=== PATIENT | female | born 1980 | race Caucasian/White ===

== ENCOUNTER 2017-05-11 19:14 | Emergency (ER) | payer MEDICAID, SELFPAY ==
[2017-05-11 19:16] VITALS: BP 134/96; PULSE 86; RESP 13; TEMP 37.1; O2SAT 99; BMI 31.4
[2017-05-11] MEDS: Acetaminophen 500 MG Tablet 1000 MG PO (19:44)
[2017-05-11] MEDS: Ondansetron ODT 4 MG Tablet PO (19:45)
--- NOTE | 2017-05-11 19:47 | EKG12_ITS ---
Test Reason : SEIZURE Blood Pressure : / mmHG Vent. Rate : 067 BPM Atrial Rate : 067 BPM P-R Int : 230 ms QRS Dur : 096 ms QT Int : 430 ms P-R-T Axes : 036 048 035 degrees QTc Int : 454 ms Sinus rhythm with 1st degree A-V block Otherwise normal ECG Confirmed by PHYLLIS COFFMAN, GURDEEP ([id number]), video tape editor CELESTINE CORDERO ([id number]) on 05/17/2017 2:00:29 PM Referred By: BRIDGETT Confirmed By:GURDEEP FERGUSON MD
--- NOTE | 2017-05-11 19:55 | RAD_ITS ---
STUDY: X-RAY - RIGHT SHOULDER REASON FOR EXAM: Female, 37 years old. Right shoulder pain after falling. TECHNIQUE: 4 view(s) of the shoulder. COMPARISON: None. FINDINGS: Normal glenohumeral articulation. Normal acromioclavicular joint. Normal acromion. Normal humeral head and visualized proximal humerus. The soft tissue structures are unremarkable. There is no demonstrated fracture. Normal visualized pulmonary apex. RAD/Shoulder min 2 Views IMPRESSION: Normal x-ray examination of the shoulder. Electronically Signed: Elin Mckoy MD at 20:32 EST , Service support ,
--- NOTE | 2017-05-11 20:40 | ED.VISSUMM ---
- ER Visit Summary Date of Service: 05/11/17 Chief Complaint: Possible seizure History of Present Illness: The patient is a 37 F who states that recently she has been began having seizures. She states tonight she hurts people talking on the hallway and she thinks she had a seizure because she collapsed against the door and tingling stand injuring her right shoulder. Patient states that she came to talking to her. She feels nauseated has a headache. She notes right posterior shoulder pain. She denies any loss of bowel or bladder control. There is been no biting of the tongue. She sees Dr. Espinosa has appointment in the next couple days. I would encourage providers to read her prior notes. Physical Examination: Afebrile vital signs are stable Gen: Well-nourished well-developed Head: Normocephalic atraumatic Eyes: Perrl EOMI ENT: TMs clear no rhinorrhea moist mucous membranes Neck: Supple no lymphadenopathy no JVD nontender CVS: Regular rate rhythm no murmurs normal S1-S2 Respiratory: No distress clear to auscultation bilaterally chest nontender Abdomen: Soft nontender nondistended normal bowel sounds no masses Back: Nontender Extremity: Tender to palpation in the posterior right shoulder without deformity or obvious dislocation. Neurovascular intact distally Skin: Normal color no rash Neuro: alert orientated ?3 CN II-XII intact normal strength sensation reflexes gait cerebellar Psych: Normal affect normal mood Test Results: Shoulder films were negative for acute. EKG shows a sinus rhythm at a rate of 67 with a QTC of 454. Emergency Department Course and Treatment: She received a dose of Tylenol and Zofran. She will be discharged home with supportive care. She is to follow-up with her doctor as scheduled. Impression: 1. Reported syncope 2. Right shoulder pain This note was generated with [employer] dictation software. It may contain incorrect words, spelling, and punctuation that were not noted in review of the chart prior to signing ED Disposition - Plan for ED Patient: Disposition: Home or Assisted Living Chief Complaint: Seizure Instructions: ED Contusion Shoulder Referrals: Giancarlo Espinosa MD [Primary Care Provider] - Keep Fe appointment
[2017-05-11 20:46] VITALS: BP 130/89; PULSE 75; RESP 16; O2SAT 96
--- NOTE | 2017-05-11 20:47 | ED.RN ---
REVIEWED D/C INSTRUCTIONS, FOLLOW UP CARE, AND S/S THAT WOULD WARRANT A RETURN TO THE ED WITH PT. PT VERBALIZED AN UNDERSTANDING AND DENIES FURTHER QUESTIONS FOR THIS RN. PT SKIN P/W/D, RESP EVEN AND UNLABORED, PT A&O X 3, NO DISTRESS NOTED. PT AMBULATED OUT OF ED, GAIT STEADY.
== END 2017-05-11 20:49 | disposition home or self-care (01) ==
PROVIDERS: Emergency Provider Emergency Medicine; Family Provider Family Medicine; PCP Family Medicine
DX: M25.511 Pain in right shoulder (principal); R55 Syncope and collapse; K21.9 Gastro-esophageal reflux disease without esophagitis; Z79.899 Other long term (current) drug therapy
CPT/HCPCS: 73030; 93005; 99285

== ENCOUNTER 2017-07-07 17:40 | Emergency (ER) | payer MEDICAID, SELFPAY ==
[2017-07-07 17:41] VITALS: BP 130/100; PULSE 117; RESP 18; TEMP 36.5; O2SAT 98; BMI 33.0
[2017-07-07 18:15] VITALS: BP 108/84; PULSE 121; RESP 21; O2SAT 98
--- NOTE | 2017-07-07 18:28 | CT_ITS ---
STUDY: CT BRAIN WITHOUT CONTRAST REASON FOR EXAM: Female, 37 years old. Headache and seizure RADIATION DOSAGE (If Supplied By Facility): CTDIvol = ( 44.99 ) mGy, DLP = ( 745.49 ) mGycm TECHNIQUE: Transaxial CT imaging of the brain was performed without administration of intravenous contrast material. Individualized dose optimization techniques were used for this CT. COMPARISON: July 16, 2016 FINDINGS: Normal soft tissue structures. Normal calvarium. Normal size ventricles and extra-axial spaces for the patient's age. Normal white matter tracts of the cerebral hemispheres. Normal basal ganglia and thalami. Normal brainstem. Normal cerebellum. Partial empty sella deformity of uncertain clinical significance. There is no intracranial hemorrhage. There are no findings of an acute ischemic infarction. Normal visualized paranasal sinuses. No significant change since prior exam CT/Brain/Head without Contrast IMPRESSION: Partial empty sella deformity of uncertain clinical significance No evidence for obstructive hydrocephalus mass or acute bleed. Electronically Signed: Glenn Mcgarry MD at 19:16 EDT , Service support ,
[2017-07-07 18:53] LABS: Absolute Lymphocyte Count 2.42 X10^3/ul (0.83-4.51); Absolute Neutrophil Count 7.6 X10^3/uL (2.0-7.7); Basophil# 0.02 X10^3/uL; Basophil% 0.2 % (0-1); Eosinophil# 0.03 X10^3/uL; Eosinophils% 0.3 % (0-5); Hematocrit 37.8 % (37-47); Hemoglobin 12.1 g/dl (12.0-15.0); Lymphocyte # 2.42 X10^3/ul (4.0); Lymphocyte % 22.1 % (19-41); Mean Corpuscular Hgb 27.6 pg (27.0-32.0); Mean Corpuscular Volume 86.1 fL (81-99); Mean Platelet Vol. 9.2 fl (6.2-12.0); Monocyte# 0.88 X10^3/uL; Neutrophil # 7.58 X10^3/uL (2.7-7.7); Platelet Count 497 K/mm3 (150-450); RBC Distribution Width CV 19.3 % (11.6-14.6); RBC Distribution Width SD 59.5 fl (35.1-43.9); Red Blood Count 4.39 M/mm3 (4.2-5.4)
[2017-07-07 18:56] LABS: Anion Gap 9 (5-15); BUN 13 mg/dL (7-18); BUN/Creat Ratio 16.5 RATIO (10-20); Calcium,Total 9.4 mg/dL (8.5-10.1); Chloride 104 mmol/L (98-107); Creatinine, Serum 0.79 mg/dL (0.55-1.02); EST Glomerular Filtration Rate 87 mL/min (>60); Est Glom Filt Rate - Afr Amer 106 mL/min (>60); Estimated Creatinine Clearance 77.11 ml/min; Glucose 130 mg/dL (74-106); Potassium 3.5 mmol/L (3.5-5.1); Sodium Level 135 mmol/L (136-145)
[2017-07-07 18:58] LABS: POSITIVE COUNT NO; POSITIVE DIFFERENTIAL NO; POSITIVE MORPHOLOGY NO
[2017-07-07] MEDS: Ondansetron 4 MG/2 ML Vial IV (19:35)
[2017-07-07] MEDS: Ketorolac 30 MG/ML Syringe IV (19:41)
[2017-07-07 19:42] VITALS: BP 125/98; PULSE 95; RESP 15; O2SAT 98
[2017-07-07] MEDS: DiphenhydrAMINE 50 MG/ML Syringe 25 MG IV (20:35)
--- NOTE | 2017-07-07 20:41 | ED.DCSUM_ITS ---
- ER Visit Summary Date of Service: 07/07/17 Chief Complaint: Reportedly recurrent seizures and headache. History of Present Illness: The patient is a 37 F history of seizure disorder and also MS. It is becoming more frequently. She states she was diagnosed with seizure 3 months ago. Primarily absence seizure's. She denies being on any blood thinners. She denies any fever. She denies any head trauma. Physical Examination: Appearing young female. Vital signs are stable afebrile. Pulse ox 90% on room air no signs of hypoxia. She is in no distress. She is not seizing. H EENT exam unremarkable atraumatic. Pupils round reactive light. No facial droop. No injury to her tongue. Neck nontender no meningismus. No lymphadenopathy. Lungs clear to auscultation bilaterally. Heart regular rate and rhythm no murmur. Chest nontender. Abdomen soft nontender. Moving all 4 extremities. Neurovascular intact. Neurologically she is awake and alert with no focal motor or sensory deficits. Back exam normal.. Skin exam normal. Test Results: CBC normal. Electrolytes unremarkable. Gap of 9. Normal creatinine. CT brain no acute abnormality read by the radiologist reviewed by me. Emergency Department Course and Treatment: Multiple repeat exams patient is doing well. She has had no seizure while in the ER. Treatment Plan: Discharged to home. Disposition: Discharge Impression: Recurrent seizures This note was generated with [employer] dictation software. It may contain incorrect words, spelling, and punctuation that were not noted in review of the chart prior to signing ED Disposition - Plan for ED Patient: Chief Complaint: Seizure Referrals: Giancarlo Espinosa MD [Primary Care Provider] -
--- NOTE | 2017-07-07 20:41 | ED.DEP ---
ED Disposition - Plan for ED Patient: Disposition: Home or Assisted Living Chief Complaint: Seizure Instructions: ED Seizure Recurrent Referrals: Giancarlo Espinosa MD [Primary Care Provider] - As soon as possible
[2017-07-07 20:53] VITALS: BP 131/89; PULSE 107; RESP 16; O2SAT 98
== END 2017-07-07 20:54 | disposition home or self-care (01) ==
PROVIDERS: Emergency Provider Emergency Medicine; Family Provider Family Medicine; PCP Family Medicine
DX: G40.A09 Absence epileptic syndrome, not intractable, without status epilepticus (principal); R11.2 Nausea with vomiting, unspecified; B34.9 Viral infection, unspecified; G35 Multiple sclerosis; Z79.899 Other long term (current) drug therapy
CPT/HCPCS: 70450; 80048; 85025; 96374; 96375; 99285; A4216; J2405

== ENCOUNTER 2017-07-22 11:54 | Emergency (ER) | payer MEDICAID, SELFPAY ==
[2017-07-22 11:55] VITALS: BP 107/73; PULSE 114; RESP 18; TEMP 36.9; O2SAT 95; BMI 33.1
[2017-07-22] MEDS: Ondansetron 4 MG/2 ML Vial IV (12:31)
--- NOTE | 2017-07-22 12:46 | ED.DCSUM_ITS ---
- ER Visit Summary Date of Service: 07/22/17 Chief Complaint: Reported seizure History of Present Illness: The patient is a 37 F who states that she has a history of MS and seizures (please see prior ED visits) she states she takes gabapentin and does not see neurology. She reports that she was at the [facility] today and does not remember anything but bystanders told her she was flopping like a fish. She denies any trauma. She states she feels nauseated and tired. Physical Examination: afeberile vital signs are stable Gen: Well-nourished well-developed Head: Normocephalic atraumatic Eyes: Perrl EOMI ENT: TMs clear no rhinorrhea moist mucous membranes Neck: Supple no lymphadenopathy no JVD nontender CVS: Regular rate rhythm no murmurs normal S1-S2 Respiratory: No distress clear to auscultation bilaterally chest nontender Abdomen: Soft nontender nondistended normal bowel sounds no masses Back: Nontender Extremity: Nontender no edema Skin: Normal color no rash Neuro: alert orientated ?3 CN II-XII intact normal strength sensation reflexes gait cerebellar Psych: Normal affect normal mood Emergency Department Course and Treatment: Patient was given Zofran. She was observed. Patient be discharged home to follow-up with her doctors. Impression: 1. Reported seizure This note was generated with [employer] dictation software. It may contain incorrect words, spelling, and punctuation that were not noted in review of the chart prior to signing ED Disposition - Plan for ED Patient: Disposition: Home or Assisted Living Chief Complaint: Seizure Instructions: ED Seizure Recurrent Referrals: Giancarlo Espinosa MD [Primary Care Provider] - (call to arrange follow up)
[2017-07-22 13:29] VITALS: BP 112/80; PULSE 100; RESP 18; O2SAT 96
== END 2017-07-22 13:39 | disposition home or self-care (01) ==
PROVIDERS: Emergency Provider Emergency Medicine; Family Provider Family Medicine; PCP Family Medicine
DX: R56.9 Unspecified convulsions (principal); G35 Multiple sclerosis; K21.9 Gastro-esophageal reflux disease without esophagitis; Z79.899 Other long term (current) drug therapy
CPT/HCPCS: 96374; 99285; J7030; A4216; J2405

== ENCOUNTER 2017-11-16 22:33 | Inpatient (IN) | payer MEDICAID, SELFPAY ==
[2017-11-16 22:34] VITALS: BP 110/81; PULSE 106; RESP 24; TEMP 37.3; O2SAT 98; BMI 31.6
--- NOTE | 2017-11-16 22:58 | EKG12_ITS ---
Test Reason : OVERDOSE Blood Pressure : / mmHG Vent. Rate : 107 BPM Atrial Rate : 107 BPM P-R Int : 184 ms QRS Dur : 084 ms QT Int : 342 ms P-R-T Axes : 048 046 037 degrees QTc Int : 456 ms Sinus tachycardia Otherwise normal ECG Confirmed by TATIANA LAUREANO ([id number]), non linear editor CELESTINE CORDERO ([id number]) on 11/22/2017 1:38:18 PM Referred By: JACK Confirmed By:TATIANA LAUREANO
[2017-11-16 23:24] LABS: Absolute Lymphocyte Count 2.36 X10^3/ul (0.83-4.51); Absolute Neutrophil Count 6.5 X10^3/uL (2.0-7.7); Basophil# 0.02 X10^3/uL; Basophil% 0.2 % (0-1); Eosinophil# 0.11 X10^3/uL; Eosinophils% 1.1 % (0-5); Hematocrit 35.7 % (37-47); Hemoglobin 12.2 g/dl (12.0-15.0); Lymphocyte # 2.36 X10^3/ul (4.0); Mean Corp Hgb Conc 34.2 g/gl (32-36); Mean Corpuscular Volume 93.7 fL (81-99); Mean Platelet Vol. 9.3 fl (6.2-12.0); Monocyte# 1.26 X10^3/uL; Monocyte% 12.3 % (0-10); Neutrophil # 6.52 X10^3/uL (2.7-7.7); Neutrophil % 63.3 % (47-70); POSITIVE COUNT NO; POSITIVE DIFFERENTIAL NO; POSITIVE MORPHOLOGY NO; Platelet Count 387 K/mm3 (150-450); RBC Distribution Width CV 13.6 % (11.6-14.6); RBC Distribution Width SD 46.7 fl (35.1-43.9); Red Blood Count 3.81 M/mm3 (4.2-5.4); White Blood Count 10.3 K/mm3 (4.4-11.0)
[2017-11-16 23:25] LABS: Color, Urine Yellow (Yellow); Glucose, Dipstick Normal (Normal); Leukocyte Esterase-Dipstick 25 /ul (Negative); Nitrite-Dipstick Negative (Negative); Occult Blood-Urine 250 /ul (Negative); Protein-Dipstick 30 mg/dl (Negative); Specific Gravity, Urine 1.025 (1.002-1.030); Urine Bilirubin Dipstick Negative (Negative); Urine Clarity Clear (Clear); Urine Urobilinogen Normal (Normal)
--- NOTE | 2017-11-16 23:26 | ED.RN ---
lab called with critical lab results. urine ketones 150. Dr. Cornejo made aware. no new orders given at this time
[2017-11-16 23:27] LABS: Ketone-Dipstick 150 mg/dl (Negative)
[2017-11-16] MEDS: 0.9% Normal Saline 1,000 ML 1000 ML IV (23:31)
[2017-11-16] MEDS: Ondansetron 4 MG/2 ML Vial IV (23:32)
[2017-11-16 23:45] LABS: Anion Gap 16 (5-15); BUN 23 mg/dL (7-18); BUN/Creat Ratio 32.3 RATIO (10-20); Calcium,Total 9.6 mg/dL (8.5-10.1); Chloride 102 mmol/L (98-107); Creatinine, Serum 0.71 mg/dL (0.55-1.02); EST Glomerular Filtration Rate 98 mL/min (>60); Est Glom Filt Rate - Afr Amer 118 mL/min (>60); Glucose 93 mg/dL (74-106); Potassium 3.7 mmol/L (3.5-5.1); Sodium Level 136 mmol/L (136-145)
[2017-11-16 23:46] LABS: Alcohol, Blood (Medical)-Serum < 3.0 mg/dL
[2017-11-16 23:48] LABS: Bacteria RARE /hpf (None Seen); Mucous, Urine 1+ /hpf (<or=2+); Red Blood Cells-Urine 10-25 SEEN /hpf (0-5); Squamous Epithelial Cells - UA 0-5 SEEN /hpf (5-10); White Blood Cells 5-10 SEEN /hpf (0-5)
[2017-11-16 23:58] VITALS: BP 97/63; PULSE 103; RESP 20; O2SAT 98
[2017-11-17] VITALS (12 sets, daily range): BP systolic 109–116; BP diastolic 57–81; PULSE 60–103; RESP 18–20; TEMP 36.1–36.9; O2SAT 94–99; BMI 31.8; BMI 31.9
[2017-11-17] MEDS: 0.9% Normal Saline 1,000 ML 999 ML IV (00:03)
[2017-11-17 00:07] LABS: Amphetamine Urine VISTA POSITIVE (<1000 ng/mL); Barbiturate Urine VISTA NEGATIVE (< 200 ng/mL); Benzodiazepine Urine VISTA NEGATIVE (< 200 ng/mL); Cocaine Urine VISTA NEGATIVE (< 300 ng/mL); Ecstacy Urine VISTA POSITIVE (< 500 ng/mL); Methadone Urine VISTA NEGATIVE (< 300 ng/mL); PCP Urine VISTA NEGATIVE (< 25 ng/mL); THC Urine VISTA NEGATIVE (< 50 ng/mL); Vista UDS pH Range 6
--- NOTE | 2017-11-17 00:25 | PCM.HP.STD ---
Problem List (1) Acute encephalopathy Status: Acute (2) Methamphetamine abuse Status: Acute (3) High anion gap metabolic acidosis Status: Acute History of Present Illness Date of Admission: 11/17/17 Chief Complaint: Altered mental status x 1 day. The patient is a 37 year old F with a significant history of multiple sclerosis, epilepsy, and polysubstance dependence who presented with shakiness,, diaphoresis and incoherent speech that started a few hours before his admission. Patient used methamphetamine about a day and a half before admission. Patient and daughter thinks that patient is is withdrawing from methamphetamine. Patient lives at half-way. While the patient and daughter was coming to the emergency department patient collapsed. In the past patient used cocaine and other illicit drugs. Past Medical History Past Medical History (Chronic Problems): Chronic Problems Transverse myelitis (Chronic) GERD (gastroesophageal reflux disease) (Chronic) BMI 33.0-33.9,adult (Chronic) Allergies naproxen [From Naprosyn] Allergy (Verified 11/16/17 22:38) Hives Home Medications: Ambulatory Orders Medication Instructions Recorded Amitriptyline HCl 150 mg PO QHS 07/16/16 Meloxicam [Mobic] 15 mg PO BID 07/16/16 Gabapentin [Neurontin] 1,000 mg PO 4X/DAY 07/17/16 Omeprazole [Omeprazole] 20 mg PO DAILY 01/11/17 Ferrous Sulfate [Iron] 325 mg PO BID 07/07/17 Levetiracetam [Keppra] 500 mg PO BID 11/17/17 Surgical History: appendectomy, - - Fallopian tubes tied Psychiatric History: No pertinent psych hx [employer] History: No pertinent [employer] history Lives: - - Lives at half-way Smoking Status: Never smoker Alcohol: None Drugs: Cocaine - In the past, - - Narcotics - *Family History Maternal History Items: No pertinent history Paternal History Items: No pertinent history Review of Systems Constitutional: Reports: Malaise, Weakness Eyes: Denies: Blurred vision, Pain HEENT: Denies: Head Aches, Sinus Congestion, Sinus Drainage Cardiovascular: Denies: Chest Pain, Palpitations Respiratory: Denies: Cough, Shortness of breath at rest, Sputum production Gastrointestinal: Denies: Abdominal Pain, Nausea, Vomiting Genitourinary: Denies: Dysuria Musculoskeletal: Denies: Joint Pain, Joint Tenderness Skin: Denies: Rash, Wounds Neurological: Reports: - - Collapsed on her way to the emergency department. Psychiatric: Denies: Homicidal Ideations, Suicidal Ideations Hematologic/ Lymphatic: Denies: Easy Bruising, Easy Bleeding VTE Information - Inpt Only VTE Present on Admission: No VTE Mechan Device Prophylaxis: None VTE Pharm Prophylaxis ordered?: Yes Patient Problems: Active and Suspected Problems Acute encephalopathy (Acute) Methamphetamine abuse (Acute) High anion gap metabolic acidosis (Acute) - Physical Exam General: Alert, Oriented x3, - - Incoherent speech; and some confusion HEENT: Atraumatic, PERRLA, EOMI, Normocephalic Neck: Supple, No JVD, Negative Carotid Bruits Lungs: Clear to auscultation, Normal air movement Cardiovascular: Tachycardic Abdomen: Bowel Sounds Present, Soft, Non Tender Extremities: No edema, Capillary Refill Less than 3 Seconds Skin: No rashes, No breakdown Musculoskeletal: No Tenderness to Palpation of Joints or Extremities Neurological: Cranial nerves II-XII grossly intact Psych/Mental Status: Restless Vital Signs Temp Pulse Resp BP Pulse Ox 99.2 F H 103 H 20 H 97/63 98 11/16/17 22:34 11/16/17 23:58 11/16/17 23:58 11/16/17 23:58 11/16/17 23:58 Oxygen Delivery Method Room Air Weight: 78.3 kg Body Mass Index (BMI) 31.6 Finger Stick Blood Glucose 109 Laboratory Tests Past 24 Hrs 11/16/17 11/16/17 11/16/17 23:10 23:10 23:10 WBC 10.3 RBC 3.81 L Hgb 12.2 Hct 35.7 L MCV 93.7 MCH 32.0 MCHC 34.2 RDW 13.6 RDW Differential 46.7 H Plt Count 387 MPV 9.3 Immature Gran % (Auto) 0.100 Neut % (Auto) 63.3 Lymph % (Auto) 23.0 [place] % (Auto) 12.3 H Eos % (Auto) 1.1 Baso % (Auto) 0.2 Absolute Neuts (auto) 6.5 Absolute Lymphs (auto) 2.36 Total Counted Not Reportable Sodium 136 Potassium 3.7 Chloride 102 Carbon Dioxide 18.0 L Anion Gap 16 H BUN 23 H Creatinine 0.71 Estim Creat Clear Calc 85.80 Est GFR (MDRD) Af Amer 118 Est GFR (MDRD) Non-Af 98 BUN/Creatinine Ratio 32.3 H Glucose 93 Calcium 9.6 Urine Color Urine Clarity Urine pH Ur Specific [place] Urine Protein Urine Glucose (UA) Urine Ketones Urine Occult Blood Urine Nitrite Urine Bilirubin Urine Urobilinogen Ur Leukocyte Esterase Urine RBC Urine WBC Ur Squamous Epith Cells Urine Bacteria Urine Mucus Urine Opiates Screen Urine Methadone Screen Ur Barbiturates Screen Ur Phencyclidine Scrn Ur Amphetamines Screen U Methamphetamin-MDMA U Benzodiazepines Scrn Urine Cocaine Screen U Cannabinoids Screen Ur Drug Screen Comment Ethyl Alcohol < 3.0 11/16/17 11/16/17 23:20 23:20 WBC RBC Hgb Hct MCV MCH MCHC RDW RDW Differential Plt Count MPV Immature Gran % (Auto) Neut % (Auto) Lymph % (Auto) [place] % (Auto) Eos % (Auto) Baso % (Auto) Absolute Neuts (auto) Absolute Lymphs (auto) Total Counted Sodium Potassium Chloride Carbon Dioxide Anion Gap BUN Creatinine Estim Creat Clear Calc Est GFR (MDRD) Af Amer Est GFR (MDRD) Non-Af BUN/Creatinine Ratio Glucose Calcium Urine Color Yellow Urine Clarity Clear Urine pH 6.0 Ur Specific [place] 1.025 Urine Protein 30 H Urine Glucose (UA) Normal Urine Ketones 150 H Urine Occult Blood 250 H Urine Nitrite Negative Urine Bilirubin Negative Urine Urobilinogen Normal Ur Leukocyte Esterase 25 H Urine RBC 10-25 SEEN Urine WBC 5-10 SEEN Ur Squamous Epith Cells 0-5 SEEN Urine Bacteria RARE Urine Mucus 1+ Urine Opiates Screen NEGATIVE Urine Methadone Screen NEGATIVE Ur Barbiturates Screen NEGATIVE Ur Phencyclidine Scrn NEGATIVE Ur Amphetamines Screen POSITIVE H U Methamphetamin-MDMA POSITIVE H U Benzodiazepines Scrn NEGATIVE Urine Cocaine Screen NEGATIVE U Cannabinoids Screen NEGATIVE Ur Drug Screen Comment Ethyl Alcohol Assessment/Plan All Active Problems Acute encephalopathy (Acute) Methamphetamine abuse (Acute) High anion gap metabolic acidosis (Acute) Drug overdose (Acute) Encephalopathy (Acute) Altered mental status (Acute) The patient is a 37 year old F with a significant history of multiple sclerosis, epilepsy, and polysubstance dependence who presented with shakiness, diaphoresis and incoherent speech consistent with acute encephalopathy secondary to methamphetamine withdrawal. Acute encephalopathy secondary to methamphetamine withdrawal. Patient with ketones in her urine and anion gap metabolic acidosis. Clinical monitoring IV fluids Case management to help with placement when patient is neurologically stable. BMP and CBC in a.m. Anemia Chronic. RBC not at goal on admission; hematocrit slightly reduced Ferrous sulfate continued Depression Elavil continued Epilepsy Keppra and gabapentin continued GERD Protonix continued Multiple sclerosis Stable Clinical monitoring DVT prophylaxis with subcutaneous Lovenox Code Visit OBSV E&M: 42966 Initial observation care L3
--- NOTE | 2017-11-17 00:31 | ED.VISSUMM ---
- ER Visit Summary Date of Service: 11/17/17 Chief Complaint: [Weakness] History of Present Illness: The patient is a 37 F [presents the emergency department complaint of generalized weakness today. Patient states that she is had sweats and dark urine. Patient's been feeling clammy and shaky. Patient states that she has been dabbling and methamphetamines which she has been snorting. Patient states she has not used for the last 2-3 days. Patient's daughter pulled me aside and stated that she thinks she used last about a day and a half ago but she may have used again today. Patient denies feeling suicidal. Patient was walking with her daughter to come to the emergency department one her legs, collapsed and they called EMS for her. Patient denies any chest pain or shortness of breath. She has had some nausea. She has had some diarrhea.] Physical Examination: [HEENT-PERRLA, EOMI. Cranial nerves II through XII grossly intact. TMs clear. Mucous membranes moist. No adenopathy. Slightly diaphoretic. Patient has pressured speech. Cardiovascular-regular rate and rhythm without murmur or ectopy Lungs-clear to auscultation, chest wall stable without crepitus or subcu emphysema Abdomen-normoactive bowel sounds, soft, nontender, no rebound or rigidity, no peritoneal signs. Extremities-intact ?4, normal range of motion, normal pulses, atraumatic]. Patient has a fine tremor. Test Results: [EKG obtained on arrival showed a sinus tachycardia with a ventricular rate of 107 bpm. CBC with differential obtained showed a white count of 10.3, hemoglobin 12, hematocrit 36, platelets 387. Chemistries unremarkable. Urinalysis showed 150 ketones, 5-10 WBCs, 1025 RBCs. Alcohol was less than 3. Toxicology screen was positive for amphetamines and MDMA.] Emergency Department Course and Treatment: [Was given Zofran and 2 L normal saline.] Treatment Plan: [Patient would like to go through detox for amphetamines. Case was discussed with hospitalist who will evaluate patient for admission for hydration and evaluation by abelino morrissey.] Disposition: [Admit] Impression: [Dehydration Methamphetamine withdrawal] This note was generated with [employer] dictation software. It may contain incorrect words, spelling, and punctuation that were not noted in review of the chart prior to signing ED Disposition - Plan for ED Patient: Chief Complaint: Substance Abuse Referrals: Giancarlo Espinosa MD [Primary Care Provider] -
[2017-11-17] MEDS: Lactated Ringers 1,000 ML 150 ML IV (02:58)
[2017-11-17] MEDS: Gabapentin 800 MG Tablet PO (03:45)
[2017-11-17] MEDS: levETIRAcetam 500 MG Tablet PO ×3 (03:45→21:20)
[2017-11-17 06:36] LABS: Absolute Lymphocyte Count 1.85 X10^3/ul (0.83-4.51); Absolute Neutrophil Count 5.1 X10^3/uL (2.0-7.7); Basophil# 0.01 X10^3/uL; Basophil% 0.1 % (0-1); Eosinophil# 0.09 X10^3/uL; Eosinophils% 1.1 % (0-5); Hematocrit 31.6 % (37-47); Hemoglobin 10.6 g/dl (12.0-15.0); Lymphocyte # 1.85 X10^3/ul (4.0); Lymphocyte % 22.7 % (19-41); Mean Corp Hgb Conc 33.5 g/gl (32-36); Mean Corpuscular Hgb 31.8 pg (27.0-32.0); Mean Corpuscular Volume 94.9 fL (81-99); Mean Platelet Vol. 9.3 fl (6.2-12.0); Monocyte# 1.11 X10^3/uL; Monocyte% 13.6 % (0-10); Neutrophil # 5.08 X10^3/uL (2.7-7.7); Neutrophil % 62.4 % (47-70); Platelet Count 337 K/mm3 (150-450); RBC Distribution Width CV 13.6 % (11.6-14.6); RBC Distribution Width SD 46.9 fl (35.1-43.9); Red Blood Count 3.33 M/mm3 (4.2-5.4); White Blood Count 8.2 K/mm3 (4.4-11.0)
[2017-11-17 06:40] LABS: POSITIVE COUNT NO; POSITIVE DIFFERENTIAL NO; POSITIVE MORPHOLOGY NO
[2017-11-17 07:08] LABS: Anion Gap 9 (5-15); BUN 15 mg/dL (7-18); BUN/Creat Ratio 27.4 RATIO (10-20); Calcium,Total 8.3 mg/dL (8.5-10.1); Chloride 108 mmol/L (98-107); Creatinine, Serum 0.55 mg/dL (0.55-1.02); EST Glomerular Filtration Rate 133 mL/min (>60); Est Glom Filt Rate - Afr Amer 160 mL/min (>60); Estimated Creatinine Clearance 110.76 ml/min; Glucose 103 mg/dL (74-106); Potassium 3.6 mmol/L (3.5-5.1); Sodium Level 140 mmol/L (136-145)
[2017-11-17] MEDS: 0.9% Normal Saline 1,000 ML 150 ML IV ×4 (08:00→21:20)
--- NOTE | 2017-11-17 08:14 | PCM.PN.HOSP ---
Patient Problems: Active and Suspected Problems Acute encephalopathy (Acute) Methamphetamine abuse (Acute) High anion gap metabolic acidosis (Acute) Subjective: Complains of pain in feet. Denies use of methamphetamines use for the past 2 days. Denies any other synthetic drug (e.g., spice, bath salts) use. Vitals/I&O's: Vital Signs Temp Pulse Resp BP Pulse Ox 36.9 C 99 20 H 112/81 H 99 11/17/17 02:27 11/17/17 02:27 11/17/17 02:27 11/17/17 02:27 11/17/17 02:27 Oxygen Delivery Method Room Air Weight: 79.1 kg Body Mass Index (BMI) 31.8 Intake and Output for Last 24 Hours 11/15/17 11/16/17 11/17/17 23:59 23:59 23:59 Intake Total 953 / 953 Balance 953 / 953 General: - - anxious. writhing in bed. awake. conversant. afebrile. HEENT: Atraumatic, Normocephalic Oral: Moist Mucosa Neck: No Nodes, Thyroid Normal Size and Texture Lungs: Clear to auscultation, Normal air movement, No rhonchi, No wheeze Cardiovascular: Regular rate, Regular Rhythm, Normal S1, Normal S2, No murmurs Abdomen: Bowel Sounds Present, Soft, Non Tender, Non-Distended, No Hepato-splenomegaly Extremities: No edema, No Calf Tenderness Musculoskeletal: No Tenderness to Palpation of Joints or Extremities, No Muscle Wasting, - - able to actively flex and extend ankles and toes. Neurological: Coordination normal, - - writhing in bed Psych/Mental Status: Agitated, Anxious Laboratory Results 11/17/17 06:15: WBC 8.2, RBC 3.33 L, Hgb 10.6 L, Hct 31.6 L, MCV 94.9, MCH 31.8, MCHC 33.5, RDW 13.6, RDW Differential 46.9 H, Plt Count 337, MPV 9.3, Immature Gran % (Auto) 0.100, Neut % (Auto) 62.4, Lymph % (Auto) 22.7, [place] % (Auto) 13.6 H, Eos % (Auto) 1.1, Baso % (Auto) 0.1, Absolute Neuts (auto) 5.1, Absolute Lymphs (auto) 1.85, Total Counted Not Reportable 11/17/17 06:15: Sodium 140, Potassium 3.6, Chloride 108 H, Carbon Dioxide 23.0, Anion Gap 9, BUN 15, Creatinine 0.55, Estim Creat Clear Calc 110.76, Est GFR (MDRD) Af Amer 160, Est GFR (MDRD) Non-Af 133, BUN/Creatinine Ratio 27.4 H, Glucose 103, Calcium 8.3 L Current Medications Enoxaparin Sodium (Lovenox) 40 mg SC DAILY@1000 EMILIA Ferrous Sulfate (Ferrous Sulfate) 325 mg PO BIDCM [facility] Lactated Ringer's () 1,000 mls @ 150 mls/hr IV .[id number] [facility] Stop: 11/17/17 09:05 Last Admin: 11/17/17 02:58 Dose: 150 mls/hr Levetiracetam (Keppra Tablet) 500 mg PO BID [facility] Last Admin: 11/17/17 03:45 Dose: 500 mg Magnesium Hydroxide (Milk Of Magnesia) 30 ml PO DAILY PRN PRN PRN Reason: Constipation Meloxicam (Mobic) 15 mg PO DAILY [facility] Nutritional Formula (Lactose Free) (Ensure Enlive) 120 ml PO 4X/DAY [facility] Pantoprazole Sodium (Protonix) 20 mg PO DAILY [facility] Sodium Chloride () 5 - 30 ml IV UD PRN PRN Reason: SALINE FLUSH Medical Necessity - Tobacco Use Smoking Status: Never smoker Assessment/Plan All Active Problems Acute encephalopathy (Acute) Methamphetamine abuse (Acute) High anion gap metabolic acidosis (Acute) Drug overdose (Acute) Encephalopathy (Acute) Altered mental status (Acute) 1. psychomotor agitation secondary to methamphetamines intoxication, even with the patient's claims of not using in 2 days, it does have a long duration of effect. continue supportive mgmt: IVF and add lorazepam check CPK, LFTs, test monitor on telemetry for now, though i doubt she is a risk for cardiac or pulmonary collapse drug screen will not pear picker some of the newer synthetics (spice, bath salts), but pt denies their use 2. methamphetamine abuse DC neurontin. Given her drug use, it can be used to accentuate highs (particularly with opiates). Rarely used for seizures. Will dc that and elavil. 3. Seizure d/o as above for neurontin. continue Keppra 4. DVT proph: LMWH. Code Visit Inpatient E&M: 39519 Subs Hosp L3
[2017-11-17] MEDS: Ferrous Sulfate 325 MG Tablet PO ×2 (08:54→17:31)
[2017-11-17 09:27] LABS: AST(SGOT) 24 U/L (15-37); Alanine Aminotransfer ALT/SGPT 29 U/L (13-56); Albumin, Serum 3.1 g/dL (3.2-5.0); Alkaline Phosphatase 70 U/L (45-117); Bilirubin, Direct 0.16 mg/dL (0.00-0.30); CPK Total, Creatine Kinase 147 U/L (26-192); Globulin 3.4 g/dL (2.2-4.2); Pregnancy, Serum, hCG Quali. NEGATIVE Negative (0-9 Nonpreg); Protein, Total 6.5 g/dL (6.4-8.2)
[2017-11-17] MEDS: Enoxaparin 40 MG/0.4 ML Syringe SC (10:49)
[2017-11-17] MEDS: Pantoprazole Sodium 20 MG Tablet PO (10:49)
[2017-11-17] MEDS: Meloxicam 15 MG Tablet PO (10:50)
--- NOTE | 2017-11-17 13:07 | CASEMGMT ---
Addendum entered by Brooke Yang 11/17/17 13:24: Pt signed a release and states it is okay for SW to call the senior care and speak w/them. Pt explained she has an order of protection against her boyfriend and this is why she went to the senior care. Pt states she then started going through withdrawal and is now here. Pt explained that using violated her probation and she does not know if she will need to go to long term from here, pt stated multiple times she does not know what is going on. SW asked about her daughter, she stated she thinks her daughter may be at the house, and her boyfriend may be at the house, but does not really know where they are. SW asked if she is concerned for her daughter's safety (pt states daughter is 18). Pt states she does not actually know where the boyfriend or daughter are, she does not think the boyfriend is at the house, is not sure if her daughter is there. SW explained will call the senior care to find out if pt can return there. Pt also mentioned she is having a hard time walking and is wondering about going to a skilled nursing for a couple of days. (Therapy is ordered, the evaluations are pending). SW called the senior care back, spoke w/Elin Pizano (faxed release also). SW explained the pt's situation, and asked if pt can return. Elin states that she needs to speak w/her supervisor elementary education, and will call this SW back. SW will continue to follow. SINCERE Perez, AIRFRAME TECHNICIAN Original Note: SW spoke with pt in room in regard to living situation and discharge plan. Pt [facility]. Pt does not know if she can return or if she needs to go to long term from here for parole violation. Pt gave SW permission to call the senior care. Pt also states she is to do counseling w/180 when she leaves here. SW called the senior care, SW will need to have pt sign a release to speak w/them. SW will speak w/pt shortly about signing a release. SINCERE Perez, AIRFRAME TECHNICIAN
[2017-11-17] MEDS: LORazepam 2 MG/ML Syringe 1 MG IV ×2 (17:19→21:45)
[2017-11-17] MEDS: 0.9% NaCl Peripheral Flush Adult/Peds IV (17:20)
[2017-11-17] MEDS: Acetaminophen 325 MG Tablet 650 MG PO (17:31)
[2017-11-18] VITALS (7 sets, daily range): BP systolic 106–126; BP diastolic 59–91; PULSE 59–96; RESP 16–18; TEMP 35.9–36.8; O2SAT 95–98
[2017-11-18] MEDS: LORazepam 2 MG/ML Syringe 1 MG IV ×2 (02:22→13:35)
[2017-11-18] MEDS: 0.9% Normal Saline 1,000 ML 150 ML IV ×4 (05:20→23:51)
[2017-11-18] MEDS: Enoxaparin 40 MG/0.4 ML Syringe SC (09:54)
[2017-11-18] MEDS: levETIRAcetam 500 MG Tablet PO ×2 (09:54→20:58)
[2017-11-18] MEDS: Meloxicam 15 MG Tablet PO (09:54)
[2017-11-18] MEDS: Pantoprazole Sodium 20 MG Tablet PO (09:54)
[2017-11-18] MEDS: Ferrous Sulfate 325 MG Tablet PO ×2 (09:54→17:38)
[2017-11-18] MEDS: Acetaminophen 325 MG Tablet 650 MG PO (10:10)
--- NOTE | 2017-11-18 10:27 | PCM.PN.HOSP ---
Patient Problems: Active and Suspected Problems Acute encephalopathy (Acute) Methamphetamine abuse (Acute) High anion gap metabolic acidosis (Acute) Subjective: Still with foot and arm pain. Again denies any other synthetic drugs such as bath salts or synthetic marijuana use. Denies any alcohol use or heroin use. Vitals/I&O's: Vital Signs Temp Pulse Resp BP Pulse Ox 35.9 C L 86 16 126/79 H 95 11/18/17 10:03 11/18/17 10:03 11/18/17 10:03 11/18/17 10:03 11/18/17 10:03 Oxygen Delivery Method Room Air Weight: 79.1 kg Body Mass Index (BMI) 31.8 Intake and Output for Last 24 Hours 11/16/17 11/17/17 11/18/17 23:59 23:59 23:59 Intake Total 4574 / 4574 797 / 797 Balance 4574 / 4574 797 / 797 General: Alert, - - Listless. More calm today. Still with some mild chorea of the lower extremities. HEENT: PERRLA, Normocephalic Oral: Moist Mucosa, No Gingival or Mucosal Lesions/ Ulcerations Neck: No Nodes, Thyroid Normal Size and Texture Lungs: Clear to auscultation, Normal air movement, No rhonchi, No wheeze Cardiovascular: Regular rate, Regular Rhythm, Normal S1, Normal S2, No murmurs Abdomen: Bowel Sounds Present, Soft, Non Tender, Non-Distended, No Hepato-splenomegaly Extremities: No edema, No Calf Tenderness Skin: No rashes, No breakdown Musculoskeletal: No Tenderness to Palpation of Joints or Extremities, No Muscle Wasting Neurological: Muscle tone normal, Sensory exam intact to light touch and pain Psych/Mental Status: Appropriate, Anxious Current Medications Acetaminophen (Tylenol) 650 mg PO Q4H PRN PRN PRN Reason: PAIN Last Admin: 11/18/17 10:10 Dose: 650 mg Enoxaparin Sodium (Lovenox) 40 mg SC DAILY@1000 [facility] Last Admin: 11/18/17 09:54 Dose: 40 mg Ferrous Sulfate (Ferrous Sulfate) 325 mg PO BIDCM [facility] Last Admin: 11/18/17 09:54 Dose: 325 mg Sodium Chloride () 1,000 mls @ 150 mls/hr IV .Q6H40M [facility] Last Admin: 09/07/18 09:55 Dose: 150 mls/hr Levetiracetam (Keppra Tablet) 500 mg PO BID [facility] Last Admin: 11/18/17 09:54 Dose: 500 mg Lorazepam (Ativan) 1 mg IV Q4H PRN PRN PRN Reason: AGITATION Last Admin: 11/18/17 02:22 Dose: 1 mg Magnesium Hydroxide (Milk Of Magnesia) 30 ml PO DAILY PRN PRN PRN Reason: Constipation Meloxicam (Mobic) 15 mg PO DAILY [facility] Last Admin: 11/18/17 09:54 Dose: 15 mg Nutritional Formula (Lactose Free) (Ensure Enlive) 120 ml PO 4X/DAY [facility] Last Admin: 11/18/17 09:55 Dose: 120 ml Pantoprazole Sodium (Protonix) 20 mg PO DAILY [facility] Last Admin: 11/18/17 09:54 Dose: 20 mg Sodium Chloride () 5 - 30 ml IV UD PRN PRN Reason: SALINE FLUSH Last Admin: 11/17/17 17:20 Dose: 10 ml Medical Necessity - Tobacco Use Smoking Status: Never smoker Assessment/Plan All Active Problems Acute encephalopathy (Acute) Methamphetamine abuse (Acute) High anion gap metabolic acidosis (Acute) Drug overdose (Acute) Encephalopathy (Acute) Altered mental status (Acute) 1. psychomotor agitation secondary to methamphetamines intoxication, even with the patient's claims of not using in 2 days, it does have a long duration of effect. Today, the patient seems much better. May be more in the withdrawal phase at this point time but currently stable. continue supportive mgmt: IVF and add lorazepam CPK and LFTs are normal DC tele drug screen will not grain picker some of the newer synthetics (spice, bath salts), but pt denies their use 2. methamphetamine abuse DC neurontin. Given her drug use, it can be used to accentuate highs (particularly with opiates). Rarely used for seizures. Will dc that and elavil. 3. Seizure d/o as above for neurontin. continue Keppra 4. DVT proph: LMWH. Code Visit Inpatient E&M: 13427 Subs Hosp L3
--- NOTE | 2017-11-18 10:47 | NURSING ---
PT ASKING IF SHE CAN SEE HER DAUGHTER. STATES HER DAUGHTER IS 17YO. INFORMED THAT HER DAUGHTER MAY VISIT. PT THEN STATES SHE DOESN'T KNOW WHERE HER DAUGHTER IS OR HOW TO CONTACT HER. INFORMED THAT IF SHE'S ABLE TO CONTACT HER DAUGHTER SHE MAY COME OT HOSP TO VISIT. PT THEN ASKED WHERE SHE'S GOING AT D/C. INFORMED SHE DOESN'T QUALIFY FOR [facility] SO SHE WILL BE DISCHARGED HOME WHEN STABLE. PT STATES SHE DOESN'T HAVE A HOME. INFORMED SHE MAY BE ABLE TO GO BACK TO [facility]. PT STATES SHE DOESN'T THINK SHE CAN GO THERE. INFORMED VASCULAR SONOGRAPHER.
--- NOTE | 2017-11-18 11:22 | CASEMGMT ---
SW [facility] to inquire if [facility] return, she states she does not know yet and is waiting to hear back from her car supervisor's car supervisor. She is to call this SW back. SINCERE Perez, MANAGER [place]
--- NOTE | 2017-11-18 11:24 | CASEMGMT ---
SW reviewed chart, spoke w/RN. Pt has dementia, having short term memory difficulties. When pt was here last, she had home health aides and her sons were helping to care for her at home. SW called son Cuca, message left. SW called son Colin, message left. SW will continue to follow, will speak w/pt's children once they return call. SINCERE Perez, PEANUT VENDOR
--- NOTE | 2017-11-18 11:50 | NURSING ---
patient is not in the directory and a male called in and requested to have pt's direct room phone number. This RN checked with patient to make sure it was ok to give her room number to [place]. Patient stated that it was ok to give her room number to him.
--- NOTE | 2017-11-18 13:05 | CASEMGMT ---
Addendum entered by Brooke Yang 11/18/17 13:33: Giles from [employer] called this SW back and asked about pt's access to transportation. SW went back to pt's room, pt resting. Pt states does not have access to transportation. Giles states this will limit where pt can go. He suggested [facility] in [facility]. SW called [facility], spoke w/Richard Gutiérrez, gave him initial information ([phone]). They have two facilities, he will pass this on to the facility in [facility] and someone will call this SW back. They may be able to assist w/transportation to the facility. SW will continue to follow. Brooke Yang, JAMES-S, CUSTOMER ENGINEER Original Note: SW spoke w/pt in room, let pt know that SW has not heard [facility] yet in regard to whether or not pt can return there. Sw asked pt where she will go if she cannot return there. Pt states she does not know where she will go. SW asked about the circumstances of her being at the jail. Pt states she has had an order of protection from her boyfriend for some time but they were still okay and living together. She states a couple of days ago she decided to go to the jail. SW inquired again the circumstances. Pt states when they are not using things are fine but when they are using it's bad. SW inquired where her boyfriend is, pt states she does not know. She also does not know where her daughter is and states she has no way to reach her, does not have her daughter's number. She states all the numbers are in her phone. SW inquired where her phone is, she states her boyfriend has it. Pt states she does know her boyfriends number, and may have him bring in the phone. RN suggested to have it brought to a different floor. SW asked pt if she is concerned about her safety in regard to her boyfriend, pt states no. Pt also asked if SW has heard from her banking services officer. SW explained would not be reaching out to her banking services officer unless pt wanted this SW to call. Pt then said maybe the banking services officer called her boyfriend and her boyfriend knows what is going on. SW explained that if she has an order of protection against her boyfriend, then it is not likely the banking services officer would be calling him. SW suggested that she call the banking services officer herself. RN in the room for some of this conversation, pt states she has been crying and is stressed out, asked the nurse if the doctor can order her something so she does not think about all of this so deeply. SW then asked pt about going to an inpt rehab program from here. After SW asked pt multiple times, pt states that yes she would be interested in this. SW explained will make some phone calls to see if there is anyplace that can take her. Pt states understanding. SW also spoke w/Giles from [employer] and he is going to look into some options fo pt. SW will follow up shortly w/calls to facilities for inpt rehab for pt. SINCERE Perez, CUSTOMER ENGINEER
--- NOTE | 2017-11-18 16:37 | CASEMGMT ---
Social Work: TC from Alba at [facility]. Alba states they are unable to take back back into the group home at D/C. TC to Richard Gutiérrez at [facility] ([phone]) to inform that SW had not heard back from facility in [place]. Richard states he will message the operations manager/coordinator to call this SW back. TC to [facility] in [place] . Spoke with Neva. Neva requesting clinicals. Clinicals faxed. Neva states that they will most likely not get back to SW until Tuesday. Clinicals faxed to . Met with patient in room. Made patient aware that [facility] is unable to accept patient back. Patient verbalizes understanding. This SW provided patient with phone numbers to shelters in [place] and [place] . Patient instructed to call shelters to ask about availability as the shelters will want to talk to patient directly and not [facility] staff. This SW also explained to patient that referrals were made to 2 rehab facilities but neither has called back to let SW know if patient will be accepted or not. It is still unclear if patient is willing to go to rehab as she will not give a definitive answer to SW on whether she is willing to go or not. SW to continue to follow. PLAN: Patient to be discharged to drug rehab verses home verses group home. SINCERE Gay
[2017-11-19 03:05] VITALS: BP 123/81; PULSE 73; RESP 16; TEMP 36.8; O2SAT 98
[2017-11-19] MEDS: 0.9% Normal Saline 1,000 ML 150 ML IV (06:05)
[2017-11-19 08:13] LABS: Absolute Lymphocyte Count 2.27 X10^3/ul (0.83-4.51); Absolute Neutrophil Count 4.1 X10^3/uL (2.0-7.7); Basophil# 0.04 X10^3/uL; Basophil% 0.5 % (0-1); Eosinophil# 0.33 X10^3/uL; Eosinophils% 4.3 % (0-5); Hematocrit 31.8 % (37-47); Hemoglobin 10.9 g/dl (12.0-15.0); Lymphocyte # 2.27 X10^3/ul (4.0); Lymphocyte % 29.6 % (19-41); Mean Corp Hgb Conc 34.3 g/gl (32-36); Mean Corpuscular Hgb 32.9 pg (27.0-32.0); Mean Corpuscular Volume 96.1 fL (81-99); Mean Platelet Vol. 9.7 fl (6.2-12.0); Monocyte# 0.85 X10^3/uL; Monocyte% 11.1 % (0-10); Neutrophil # 4.13 X10^3/uL (2.7-7.7); Neutrophil % 53.7 % (47-70); Platelet Count 329 K/mm3 (150-450); RBC Distribution Width CV 13.3 % (11.6-14.6); RBC Distribution Width SD 44.3 fl (35.1-43.9); Red Blood Count 3.31 M/mm3 (4.2-5.4); White Blood Count 7.7 K/mm3 (4.4-11.0)
[2017-11-19 08:14] LABS: POSITIVE COUNT NO; POSITIVE DIFFERENTIAL NO; POSITIVE MORPHOLOGY NO
[2017-11-19 08:33] LABS: Anion Gap 8 (5-15); BUN 5 mg/dL (7-18); BUN/Creat Ratio 11.7 RATIO (10-20); Chloride 109 mmol/L (98-107); Creatinine, Serum 0.43 mg/dL (0.55-1.02); EST Glomerular Filtration Rate 176 mL/min (>60); Est Glom Filt Rate - Afr Amer 213 mL/min (>60); Estimated Creatinine Clearance 141.67 ml/min; Glucose 90 mg/dL (74-106); Sodium Level 140 mmol/L (136-145)
[2017-11-19 09:21] VITALS: BP 141/91; PULSE 73; RESP 18; TEMP 36.7; O2SAT 98
[2017-11-19] MEDS: levETIRAcetam 500 MG Tablet PO (09:28)
[2017-11-19] MEDS: Ferrous Sulfate 325 MG Tablet PO (09:28)
[2017-11-19] MEDS: Enoxaparin 40 MG/0.4 ML Syringe SC (09:28)
[2017-11-19] MEDS: Pantoprazole Sodium 20 MG Tablet PO (09:28)
[2017-11-19] MEDS: Meloxicam 15 MG Tablet PO (09:28)
[2017-11-19] MEDS: Acetaminophen 325 MG Tablet 650 MG PO (09:37)
[2017-11-19] MEDS: LORazepam 1 MG Tablet PO (09:37)
--- NOTE | 2017-11-19 10:21 | PCM.PN.HOSP ---
Patient Problems: Active and Suspected Problems Acute encephalopathy (Acute) Methamphetamine abuse (Acute) High anion gap metabolic acidosis (Acute) Subjective: Feeling better. Pain in feet better. Vitals/I&O's: Vital Signs Temp Pulse Resp BP Pulse Ox 36.7 C 73 18 141/91 H 98 11/19/17 09:21 11/19/17 09:21 11/19/17 09:21 11/19/17 09:21 11/19/17 09:21 Oxygen Delivery Method Room Air Weight: 79.1 kg Intake and Output for Last 24 Hours 11/17/17 11/18/17 11/19/17 23:59 23:59 23:59 Intake Total 3621 / 4574 4160 / 4160 933 / 933 Output Total 1700 / 1700 400 / 400 Balance 3621 / 4574 2460 / 2460 533 / 533 General: Alert, No apparent distress HEENT: Atraumatic, Normocephalic Oral: Moist Mucosa, No Gingival or Mucosal Lesions/ Ulcerations Neck: No Nodes, Thyroid Normal Size and Texture Lungs: Clear to auscultation, Normal air movement, No rhonchi, No wheeze Cardiovascular: Regular rate, Regular Rhythm, Normal S1, Normal S2, No murmurs Abdomen: Bowel Sounds Present, Soft, Non Tender, Non-Distended, No Hepato-splenomegaly Extremities: No edema, No Calf Tenderness Psych/Mental Status: Normal Affect, Appropriate Microbiology Past 72 Hours 11/18/17 12:30 Stool Enteric Bacteriology - Final 11/18/17 12:15 Stool C. difficile DNA Amplification - Final Laboratory Results 11/19/17 07:40: WBC 7.7, RBC 3.31 L, Hgb 10.9 L, Hct 31.8 L, MCV 96.1, MCH 32.9 H, MCHC 34.3, RDW 13.3, RDW Differential 44.3 H, Plt Count 329, MPV 9.7, Immature Gran % (Auto) 0.800, Neut % (Auto) 53.7, Lymph % (Auto) 29.6, [place] % (Auto) 11.1 H, Eos % (Auto) 4.3, Baso % (Auto) 0.5, Absolute Neuts (auto) 4.1, Absolute Lymphs (auto) 2.27, Total Counted Not Reportable 11/19/17 07:40: Sodium 140, Potassium 3.0 L, Chloride 109 H, Carbon Dioxide 23.0, Anion Gap 8, BUN 5 L, Creatinine 0.43 L, Estim Creat Clear Calc 141.67, Est GFR (MDRD) Af Amer 213, Est GFR (MDRD) Non-Af 176, BUN/Creatinine Ratio 11.7, Glucose 90, Calcium 8.0 L Current Medications Acetaminophen (Tylenol) 650 mg PO Q4H PRN PRN PRN Reason: PAIN Last Admin: 11/19/17 09:37 Dose: 650 mg Amitriptyline HCl 100 mg/ (Amitriptyline HCl 50 mg) 150 mg PO QHS [facility] Last Admin: 11/18/17 20:58 Dose: 150 mg Enoxaparin Sodium (Lovenox) 40 mg SC DAILY@1000 [facility] Last Admin: 11/19/17 09:28 Dose: 40 mg [facility]ous Sulf[facility]) [facility] Last Admin: 11/19/17 09:28 Dose: 325 mg Sodium Chloride () 1,000 mls @ 150 mls/hr IV .Q6H40M [facility] Last Admin: 11/19/17 06:05 Dose: 150 mls/hr Levetiracetam (Keppra Tablet) 500 mg PO BID [facility] Last Admin: 11/19/17 09:28 Dose: 500 mg Lorazepam (Ativan) 1 mg PO Q4H PRN PRN PRN Reason: Anxiety/ WITHDRAWAL Last Admin: 11/19/17 09:37 Dose: 1 mg Magnesium Hydroxide (Milk Of Magnesia) 30 ml PO DAILY PRN PRN PRN Reason: Constipation Meloxicam (Mobic) 15 mg PO DAILY [facility] Last Admin: 11/19/17 09:28 Dose: 15 mg Nutritional Formula (Lactose Free) (Ensure Enlive) 120 ml PO 4X/DAY [facility] Last Admin: 11/19/17 09:28 Dose: 120 ml Pantoprazole Sodium (Protonix) 20 mg PO DAILY [facility] Last Admin: 11/19/17 09:28 Dose: 20 mg Sodium Chloride () 5 - 30 ml IV UD PRN PRN Reason: SALINE FLUSH Last Admin: 11/17/17 17:20 Dose: 10 ml Medical Necessity - Tobacco Use Smoking Status: Never smoker Assessment/Plan All Active Problems Acute encephalopathy (Acute) Methamphetamine abuse (Acute) High anion gap metabolic acidosis (Acute) Drug overdose (Acute) Encephalopathy (Acute) Altered mental status (Acute) 1. psychomotor agitation secondary to methamphetamines intoxication, even with the patient's claims of not using in 2 days, it does have a long duration of effect. Improved again today. 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 methamphetamine abuse DC neurontin. Given her drug use, it can be used to accentuate highs (particularly with opiates). Rarely used for seizures. DC neurontin. 3. Seizure d/o as above for neurontin. continue Keppra 4. DVT proph: LMWH.
--- NOTE | 2017-11-19 10:23 | PCM.DC ---
- Discharge Diagnoses Current Active Problems: Current Active and Chronic Problems Acute encephalopathy (Acute) Methamphetamine abuse (Acute) High anion gap metabolic acidosis (Acute) You will use the following diet at home:: No restrictions Your food should be the consistency of: Regular Your liquids should be the consistency of: Regular/Thin Discharge Activity: Return to Normal Activity Call your doctor if you observe: Fever of 101 or Higher, - - worsening confusion Allergies/Adverse Reactions: Allergies naproxen [From Naprosyn] Allergy (Verified 11/17/17 02:34) Hives Medications to take at Discharge Amitriptyline HCl 150 mg PO QHS 07/16/16 Meloxicam [Mobic] 15 mg PO BID 07/16/16 Omeprazole 20 mg PO DAILY 01/11/17 Ferrous Sulfate [Iron] 325 mg PO BID 07/07/17 Levetiracetam [Keppra] 500 mg PO BID 11/17/17 Primary Care Physician: Giancarlo Espinosa MD [Primary Care Provider] - Within 2 Weeks Test Results: Test results from this visit will be discussed in further detail at your follow-up appointment, if applicable. Proposed Discharge Date: 11/19/17
--- NOTE | 2017-11-19 10:25 | PCM.DC.SUM ---
Discharge Date and Diagnosis - Problem List Patient Problems: Active and Suspected Problems Methamphetamine intoxication (Acute) Acute encephalopathy (Acute) Methamphetamine abuse (Acute) High anion gap metabolic acidosis (Acute) Date of Admission: 11/17/17 Date of Discharge: 11/19/17 - Primary Discharge Diagnosis Active and Suspected Problems Methamphetamine intoxication (Acute) Acute encephalopathy (Acute) Methamphetamine abuse (Acute) High anion gap metabolic acidosis (Acute) - Secondary Discharge Diagnosis Chronic Problems Transverse myelitis (Chronic) GERD (gastroesophageal reflux disease) (Chronic) BMI 33.0-33.9,adult (Chronic) Hospital Course and Treatment Operations: None Summary of Care Provided: The patient is a 37 year old F presents for confusion from half-way. 1. psychomotor agitation secondary to methamphetamines intoxication, even with the patient's claims of not using in 2 days, it does have a long duration of effect. Improved again today. CPK and LFTs are normal drug screen will not pick up man some of the newer synthetics (spice, bath salts), but pt denies their use 2. methamphetamine abuse DC neurontin. Given her drug use, it can be used to accentuate highs (particularly with opiates). Rarely used for seizures. DC neurontin. 3. Seizure d/o as above for neurontin. continue Keppra[] Discharge Diet: No Restrictions Discharge Activity: Return to Normal Activity Call your doctor if you observe: Fever of 101 or Higher, - - worsening confusion Home Medications: Medications to take at Discharge Amitriptyline HCl 150 mg PO QHS 07/16/16 Meloxicam [Mobic] 15 mg PO BID 07/16/16 Omeprazole 20 mg PO DAILY 01/11/17 Ferrous Sulfate [Iron] 325 mg PO BID 07/07/17 Levetiracetam [Keppra] 500 mg PO BID 11/17/17 Primary Care Physician: Giancarlo Espinosa MD [Primary Care Provider] - Within 2 Weeks Disposition: Home Minutes spent on discharge:: 32 Patient Condition:: Fair Medical Necessity - Tobacco Use Smoking Status: Never smoker Meaningful Use Info Meaningful Use Diagnoses (Choose all that apply): None applicable Code Visit Inpatient E&M: 41137 Disch Hosp
== END 2017-11-19 11:20 | disposition home or self-care (01) | DRG 434 ==
LOC: ED 23:52 → MS2 11-17 01:48
PROVIDERS: Admitting Provider Hospitalist; Emergency Provider Emergency Medicine; Family Provider Family Medicine; PCP Family Medicine
DX: F15.129 Other stimulant abuse with intoxication, unspecified (principal); E87.2 Acidosis; G35 Multiple sclerosis; G92 Toxic encephalopathy; D64.9 Anemia, unspecified; G40.909 Epilepsy, unspecified, not intractable, without status epilepticus; R45.1 Restlessness and agitation; F32.9 Major depressive disorder, single episode, unspecified; K21.9 Gastro-esophageal reflux disease without esophagitis
CPT/HCPCS: 36415; 80048; 80076; 80307; 80320; 81001; 82550; 84703; 85025; 87493; 87506; 93005; 97116; 97162; 97166; 97802; 99285; J7030; J7120; A4216; G0480; J2405

== ENCOUNTER 2018-01-11 21:04 | Emergency (ER) | payer MEDICAID, SELFPAY ==
[2018-01-11 21:05] VITALS: BP 124/95; PULSE 100; RESP 16; TEMP 36.6; O2SAT 100; BMI 32.1
[2018-01-11 21:10] VITALS: PULSE 104; RESP 16; O2SAT 99
[2018-01-11 21:15] LABS: Bedside Glucose 84 mg/dL (70-110)
--- NOTE | 2018-01-11 21:30 | EKG12_ITS ---
Test Reason : WEAKNESS Blood Pressure : / mmHG Vent. Rate : 088 BPM Atrial Rate : 088 BPM P-R Int : 196 ms QRS Dur : 088 ms QT Int : 338 ms P-R-T Axes : 043 047 037 degrees QTc Int : 408 ms Normal sinus rhythm Normal ECG Confirmed by PHYLLIS COFFMAN, GURDEEP ([id number]), editor city CELESTINE CORDERO ([id number] on 01/18/2018 2:28:54 PM Referred By: DR ARANA Confirmed By:GURDEEP FERGUSON MD
--- NOTE | 2018-01-11 21:30 | RAD_ITS ---
STUDY: X-RAY CHEST REASON FOR EXAM: Female, 37 years old. Weakness. TECHNIQUE: PA and lateral views of the chest. COMPARISON: Chest radiograph dated May 21, 2016. FINDINGS: Cardiac monitoring leads are present. The lungs are clear and expanded. There is no demonstrated pleural abnormality. Normal size heart. Normal mediastinum and althea. Normal visualized pulmonary arteries. Normal visualized aortic arch and descending thoracic aorta. Normal visualized thoracic spine. Normal visualized ribs, clavicles, and shoulders. There is no demonstrated abnormality of the visualized soft tissue structures of the upper abdomen. RAD/Chest PA and Lateral IMPRESSION: No radiographic evidence of acute cardiopulmonary disease. Electronically Signed: Francheska Charles MD at 23:12 EDT , Service support ,
[2018-01-11 22:00] LABS: Mucous, Urine 0 SEEN /hpf (<or=2+)
[2018-01-11 22:06] LABS: Color, Urine Yellow (Yellow); Glucose, Dipstick Normal (Normal); Ketone-Dipstick Negative (Negative); Leukocyte Esterase-Dipstick 500 /ul (Negative); Nitrite-Dipstick Positive (Negative); Occult Blood-Urine 250 /ul (Negative); Protein-Dipstick 30 mg/dl (Negative); Specific Gravity, Urine 1.015 (1.002-1.030); Urine Clarity Cloudy (Clear); Urine Urobilinogen 1 mg/dl (Normal)
[2018-01-11] MEDS: 0.9% Normal Saline 1,000 ML 1000 ML IV (22:06)
[2018-01-11] MEDS: Ondansetron 4 MG/2 ML Vial IV (22:06)
[2018-01-11 22:07] LABS: Internal QC Validated? YES +Cl - CLEAR BKGD; Pregnancy, Urine Negative Negative; Urine Bilirubin Dipstick 1 mg/dL (Negative)
[2018-01-11] MEDS: Ketorolac 15 MG/ML Vial IV (22:08)
[2018-01-11 22:20] LABS: Bacteria 3+ /hpf (None Seen); Red Blood Cells-Urine 10-25 SEEN /hpf (0-5); Squamous Epithelial Cells - UA 0-5 SEEN /hpf (5-10); White Blood Cells 25-50 SEEN /hpf (0-5)
[2018-01-11 22:53] LABS: Basophil# 0.02 X10^3/uL; Basophil% 0.2 % (0-1); Eosinophil# 0.08 X10^3/uL; Eosinophils% 0.9 % (0-5); Hematocrit 44.1 % (37-47); Hemoglobin 15.1 g/dl (12.0-15.0); Lymphocyte % 30.4 % (19-41); Mean Corp Hgb Conc 34.2 g/gl (32-36); Mean Corpuscular Hgb 33.3 pg (27.0-32.0); Mean Corpuscular Volume 97.1 fL (81-99); Mean Platelet Vol. 9.5 fl (6.2-12.0); Monocyte# 1.23 X10^3/uL; Monocyte% 13.4 % (0-10); Neutrophil # 5.03 X10^3/uL (2.7-7.7); Neutrophil % 54.7 % (47-70); POSITIVE COUNT NO; POSITIVE DIFFERENTIAL NO; POSITIVE MORPHOLOGY NO; Platelet Count 343 K/mm3 (150-450); RBC Distribution Width CV 12.9 % (11.6-14.6); RBC Distribution Width SD 45.3 fl (35.1-43.9); Red Blood Count 4.54 M/mm3 (4.2-5.4); White Blood Count 9.2 K/mm3 (4.4-11.0)
[2018-01-11 23:15] LABS: ALB/GLOB Ratio 0.9 RATIO (0.9-2.4); AST(SGOT) 23 U/L (15-37); Alanine Aminotransfer ALT/SGPT 38 U/L (13-56); Albumin, Serum 3.6 g/dL (3.2-5.0); Alkaline Phosphatase 105 U/L (45-117); Anion Gap 25 (5-15); BUN 12 mg/dL (7-18); BUN/Creat Ratio 13.7 RATIO (10-20); Chloride 104 mmol/L (98-107); Creatinine, Serum 0.88 mg/dL (0.55-1.02); EST Glomerular Filtration Rate 77 mL/min (>60); Est Glom Filt Rate - Afr Amer 93 mL/min (>60); Estimated Creatinine Clearance 69.23 ml/min; Globulin 4.2 g/dL (2.2-4.2); Glucose 38 mg/dL (74-106); Potassium 3.9 mmol/L (3.5-5.1); Protein, Total 7.8 g/dL (6.4-8.2); Sodium Level 137 mmol/L (136-145)
--- NOTE | 2018-01-11 23:15 | ED.RN ---
dr finley made aware of co2 8 and glucose of 38.
[2018-01-11 23:19] LABS: Amphetamine Urine VISTA POSITIVE (<1000 ng/mL); Barbiturate Urine VISTA NEGATIVE (< 200 ng/mL); Benzodiazepine Urine VISTA NEGATIVE (< 200 ng/mL); Cocaine Urine VISTA NEGATIVE (< 300 ng/mL); Ecstacy Urine VISTA NEGATIVE (< 500 ng/mL); Methadone Urine VISTA NEGATIVE (< 300 ng/mL); PCP Urine VISTA NEGATIVE (< 25 ng/mL); THC Urine VISTA NEGATIVE (< 50 ng/mL); Vista UDS pH Range 6
[2018-01-11 23:31] LABS: Bedside Glucose 62 mg/dL (70-110)
[2018-01-11 23:40] VITALS: BP 124/63; PULSE 84; RESP 16; O2SAT 100
[2018-01-11] MEDS: 0.9% Normal Saline 1,000 ML 999 ML IV (23:40)
[2018-01-11] MEDS: Ceftriaxone 1 GM/50 ML BAG IV (23:41)
[2018-01-12 00:26] LABS: Allen Test POS; Base Excess -2 mmol/L (-2 to +2); Bicarbonate 23.2 mmol/L (22-26); Blood Gas Specimen Type ART; O2 Delivery Device Room Air; PO2 93 mmHG (75-100); SITE L Radial; SO2 97 % (95-99); Time Given 5; Total Carbon Dioxide 24 mmol/L; pCO2 41.2 mmHg (35-45); pH 7.36 (7.35-7.45)
[2018-01-12] MEDS: proMETHazine 25 MG/ML Syringe 12.5 MG IV (00:26)
[2018-01-12] MEDS: Acetaminophen 500 MG Tablet 1000 MG PO (00:28)
[2018-01-12 00:44] LABS: Lactic Acid 1.5 mmol/L (0.4-2.0)
--- NOTE | 2018-01-12 00:53 | ED.VISSUMM ---
- ER Visit Summary Date of Service: 01/12/18 Chief Complaint: Generalized weakness History of Present Illness: The patient is a 37 F presenting for evaluation secondary generalized weakness. Patient has an underlying history of multiple sclerosis and methamphetamine use. Patient apparently has been using methamphetamine recently. Patient states over the course last 4 days she has been feeling generally ill. She states that associated with feelings of general weakness with left being worse than right. Patient states that she has head to toe pain. She denies that she is having any sort of fevers chest pain cough nausea vomiting diarrhea skin rashes headaches or paresthesias. She does endorse some generalized myalgias. Patient is currently menstruating. Physical Examination: Vital signs are within normal limits, patient is afebrile. General: Patient is well-nourished well-developed and in no acute distress. Head: Normocephalic, atraumatic Eyes: Pupils equal round and reactive bilaterally, extra occular motion intact bialterally ENT: Moist mucous membranes Neck: Supple, no lymphadenopathy, no JVD, no meningismus CVS: Heart regular rate and rhythm, no murmurs, rubs or gallops, radial pulses 2+ bilaterally Resp: Respirations nondistressed, lung sounds clear bilaterally Abdomen: Soft, nontender, nondistended, no palpable masses, normal bowel sounds Back: Nontender Extremities: Nontender, atraumatic, active full range of motion, no peripheral edema Skin: warm, no rashes, no petechia Neuro: Alert and oriented x 4, CN 2-12 intact, patient has normal strength of the upper extremities bilaterally. Lower extremity motor sensory exam shows normal sensory but the patient has 4-5 strength of the left leg with some evidence of decreased effort Psyc: Normal affect Test Results: EKG shows sinus rhythm [address] segments normal T waves. CBC unremarkable, urinalysis shows evidence of infection. Chest x-ray is unremarkable. Initial metabolic panel is remarkable for a CO2 of 8 with a anion gap of over 20. Patient's ABG however does not correlate with this with a pH of 7.3, CO2 of 41, O2 of 93, and a bicarb of 23. Emergency Department Course and Treatment: Patient presented with generalized illness in the setting of polysubstance abuse. Broad workup was obtained. Patient was found to be positive for a urinary tract infection. She also however was found to have significant acidosis on her metabolic panel. Patient's vital signs really do not correlate with this, so a ABG was performed which also does not seem to correlate with patient's metabolic panel. I added on a repeat metabolic panel as well as a lactic acid and a CK. Lactic acid is negative. Additionally the patient's initial metabolic panel showed a glucose of 30 which an immediate bedside glucose was found to be in the 60s making the likelihood of this being an air much greater. Patient was given normal saline, Toradol, Tylenol, Zofran, and Phenergan. She was given Rocephin for treatment of her urinary tract infection. At this point to the patient's repeat metabolic panel is still pending. She has stable normal vital signs, and as long as this is not grossly abnormal I believe her symptoms potentially are secondary to her polysubstance abuse and her urinary tract infection. She likely will be discharged at the conclusion of this with a course of Bactrim and follow-up with primary care. Disposition: Discharge pending metabolic panel Impression: 1. Urinary tract infection 2. Methamphetamine abuse This note was generated with [employer] dictation software. It may contain incorrect words, spelling, and punctuation that were not noted in review of the chart prior to signing ED Disposition - Plan for ED Patient: Disposition: Home or Assisted Living Chief Complaint: Weakness Diagnosis: UTI (urinary tract infection), Methamphetamine abuse Instructions: ED UTI Cystitis Female, Understanding Methamphetamine Abuse and Addiction Prescriptions: Smz/Tmp Ds [Bactrim Ds] 1 tab PO BID #14 tab Referrals: Giancarlo Espinosa MD [Primary Care Provider] - 3-5 Days
[2018-01-12 01:00] VITALS: BP 109/78; PULSE 93; RESP 18; O2SAT 98
[2018-01-12 01:06] LABS: Anion Gap 9 (5-15); BUN 13 mg/dL (7-18); BUN/Creat Ratio 15.3 RATIO (10-20); CPK Total, Creatine Kinase 23 U/L (26-192); Calcium,Total 8.5 mg/dL (8.5-10.1); Chloride 106 mmol/L (98-107); Creatinine, Serum 0.85 mg/dL (0.55-1.02); EST Glomerular Filtration Rate 80 mL/min (>60); Est Glom Filt Rate - Afr Amer 96 mL/min (>60); Estimated Creatinine Clearance 71.67 ml/min; Glucose 92 mg/dL (74-106); Potassium 4.1 mmol/L (3.5-5.1); Sodium Level 139 mmol/L (136-145)
[2018-01-12 01:27] VITALS: BP 114/82; PULSE 93; RESP 16; O2SAT 98
== END 2018-01-12 01:45 | disposition home or self-care (01) ==
PROVIDERS: Emergency Provider Emergency Medicine; Family Provider Family Medicine; PCP Family Medicine
DX: N39.0 Urinary tract infection, site not specified (principal); F15.10 Other stimulant abuse, uncomplicated; G35 Multiple sclerosis; Z86.73 Personal history of transient ischemic attack (TIA), and cerebral infarction without residual deficits
CPT/HCPCS: 36415; 36600; 71046; 80048; 80053; 80307; 81001; 81025; 82550; 82803; 82962; 83605; 84484; 85025; 87086; 87088; 87186; 93005; 96361; 96374; 96375; 99285; J7030; A4216; J2405

== ENCOUNTER 2018-01-31 16:01 | Emergency (ER) | payer MEDICAID, SELFPAY ==
[2018-01-31 16:03] VITALS: BP 118/100; PULSE 109; RESP 18; TEMP 36.3; O2SAT 99; BMI 31.2
--- NOTE | 2018-01-31 16:17 | CT_ITS ---
STUDY: CT BRAIN WITHOUT CONTRAST REASON FOR EXAM: Female, 37 years old. Withdrawal from meth. Seizure. RADIATION DOSAGE (If Supplied By Facility): CTDIvol = ( 44.99 ) mGy, DLP = ( 728.62 ) mGycm TECHNIQUE: Transaxial CT imaging of the brain was performed without administration of intravenous contrast material. Coronal and sagittal 2-D MPR Individualized dose optimization techniques were used for this CT. COMPARISON: CT brain 07/07/2017. FINDINGS: Extracranial soft tissues including orbital contents exhibit no acute abnormality. Craniofacial osseous structures within the field of view exhibit no acute abnormality. Paranasal sinuses, mastoid air cells and middle ear cavities are clear. Normal size ventricles and extra-axial spaces for the patient's age. Normal pituitary, brainstem and cerebellum There is no acute intracranial bleed, mass or mass effect nor any specific evidence of acute territorial infarct. CT/Brain/Head without Contrast IMPRESSION: Normal unenhanced CT scan of the brain. Electronically Signed: Hernan Quintero, at 17:02 EST Tel , Service support ,
[2018-01-31] MEDS: Acetaminophen 500 MG Tablet 1000 MG PO (16:41)
[2018-01-31] MEDS: 0.9% Normal Saline 1,000 ML 999 ML IV (16:41)
[2018-01-31 17:11] LABS: Absolute Lymphocyte Count 1.78 X10^3/ul (0.83-4.51); Basophil# 0.02 X10^3/uL; Basophil% 0.3 % (0-1); Eosinophil# 0.14 X10^3/uL; Eosinophils% 2.1 % (0-5); Hemoglobin 12.8 g/dl (12.0-15.0); Lymphocyte # 1.78 X10^3/ul (4.0); Lymphocyte % 26.5 % (19-41); Mean Corp Hgb Conc 32.8 g/gl (32-36); Mean Corpuscular Hgb 32.3 pg (27.0-32.0); Mean Corpuscular Volume 98.5 fL (81-99); Mean Platelet Vol. 9.3 fl (6.2-12.0); Monocyte# 0.74 X10^3/uL; Neutrophil # 4.01 X10^3/uL (2.7-7.7); Neutrophil % 59.8 % (47-70); Platelet Count 351 K/mm3 (150-450); RBC Distribution Width CV 12.7 % (11.6-14.6); RBC Distribution Width SD 45.9 fl (35.1-43.9); Red Blood Count 3.96 M/mm3 (4.2-5.4); White Blood Count 6.7 K/mm3 (4.4-11.0)
[2018-01-31 17:17] LABS: POSITIVE COUNT NO; POSITIVE DIFFERENTIAL NO; POSITIVE MORPHOLOGY NO
[2018-01-31 17:31] LABS: Anion Gap 11 (5-15); BUN 6 mg/dL (7-18); BUN/Creat Ratio 7.2 RATIO (10-20); Chloride 105 mmol/L (98-107); Creatinine, Serum 0.84 mg/dL (0.55-1.02); EST Glomerular Filtration Rate 81 mL/min (>60); Est Glom Filt Rate - Afr Amer 98 mL/min (>60); Estimated Creatinine Clearance 72.52 ml/min; Glucose 88 mg/dL (74-106); Potassium 3.3 mmol/L (3.5-5.1); Sodium Level 142 mmol/L (136-145)
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
--- NOTE | 2018-01-31 18:10 | ED.DEP ---
ED Disposition - Plan for ED Patient: Chief Complaint: Substance Abuse Instructions: ED Drug Abuse General Referrals: Giancarlo Espinosa MD [Primary Care Provider] -
[2018-01-31 18:25] VITALS: BP 147/76; PULSE 71; RESP 15; O2SAT 98
== END 2018-01-31 18:27 | disposition home or self-care (01) ==
PROVIDERS: Emergency Provider Emergency Medicine; Family Provider Family Medicine; PCP Family Medicine
DX: F15.10 Other stimulant abuse, uncomplicated (principal); R56.9 Unspecified convulsions; Z79.899 Other long term (current) drug therapy
CPT/HCPCS: 70450; 80048; 85025; 96360; 96361; 99283; J7030; A4216

== ENCOUNTER 2018-03-15 05:34 | Emergency (ER) | payer MEDICAID, SELFPAY ==
[2018-03-15 05:34] VITALS: BP 97/77; PULSE 99; RESP 27; TEMP 36; O2SAT 92; BMI 30.7
[2018-03-15 05:45] VITALS: BP 107/74; PULSE 94; O2SAT 93
[2018-03-15] MEDS: 0.9% Normal Saline 1,000 ML 1000 ML IV (05:52)
[2018-03-15] MEDS: LORazepam 2 MG/ML Syringe 1 MG IV (05:52)
[2018-03-15 05:58] LABS: Absolute Lymphocyte Count 1.87 X10^3/ul (0.83-4.51); Basophil# 0.02 X10^3/uL; Basophil% 0.3 % (0-1); Eosinophils% 1.3 % (0-5); Hematocrit 37.6 % (37-47); Lymphocyte # 1.87 X10^3/ul (4.0); Lymphocyte % 24.4 % (19-41); Mean Corp Hgb Conc 34.6 g/gl (32-36); Mean Corpuscular Hgb 33.8 pg (27.0-32.0); Mean Corpuscular Volume 97.7 fL (81-99); Monocyte# 0.68 X10^3/uL; Monocyte% 8.9 % (0-10); Neutrophil # 4.99 X10^3/uL (2.7-7.7); Platelet Count 302 K/mm3 (150-450); RBC Distribution Width CV 12.5 % (11.6-14.6); RBC Distribution Width SD 43.4 fl (35.1-43.9); Red Blood Count 3.85 M/mm3 (4.2-5.4); White Blood Count 7.7 K/mm3 (4.4-11.0)
[2018-03-15 05:59] LABS: POSITIVE COUNT NO; POSITIVE DIFFERENTIAL NO; POSITIVE MORPHOLOGY NO
[2018-03-15] MEDS: levETIRAcetam IV 1,000 MG/100 ML BAG 400 MG IV (05:59)
[2018-03-15 06:12] LABS: Anion Gap 14 (5-15); BUN 7 mg/dL (7-18); BUN/Creat Ratio 7.1 RATIO (10-20); Calcium,Total 8.6 mg/dL (8.5-10.1); Chloride 107 mmol/L (98-107); Creatinine, Serum 0.99 mg/dL (0.55-1.02); EST Glomerular Filtration Rate 67 mL/min (>60); Est Glom Filt Rate - Afr Amer 81 mL/min (>60); Estimated Creatinine Clearance 69.33 ml/min; Glucose 122 mg/dL (74-106); Potassium 3.4 mmol/L (3.5-5.1); Sodium Level 144 mmol/L (136-145)
--- NOTE | 2018-03-15 07:26 | CT_ITS ---
STUDY: CT BRAIN WITHOUT CONTRAST REASON FOR EXAM: Female, 38 years old. Seizure x3, drug abuse RADIATION DOSAGE (If Supplied By Facility): CTDIvol = ( 44.99 ) mGy, DLP = ( 779.24 ) mGycm TECHNIQUE: Transaxial CT imaging of the brain was performed without administration of intravenous contrast material. Individualized dose optimization techniques were used for this CT. COMPARISON: 01/31/2018 FINDINGS: Normal soft tissue structures. Normal calvarium. Normal size ventricles and extra-axial spaces for the patient's age. Normal white matter tracts of the cerebral hemispheres. Normal basal ganglia and thalami. Normal brainstem. Normal cerebellum. There is no intracranial hemorrhage. There are no findings of an acute ischemic infarction. Normal visualized paranasal sinuses. CT/Brain/Head without Contrast IMPRESSION: 1. No acute intracranial hemorrhage or mass effect. Stable exam. Electronically Signed: Ambrosio Maki MD at 8:04 EST , Service support ,
[2018-03-15 07:36] VITALS: BP 111/72; PULSE 97; RESP 17; O2SAT 98
--- NOTE | 2018-03-15 08:26 | ED.VISSUMM ---
- ER Visit Summary Date of Service: 03/15/18 Chief Complaint: Seizure History of Present Illness: The patient is a [address] Espinosa. She has a history of seizures. She also has a history of methamphetamine abuse. I am unable to obtain any useful history from the patient. The squad reports that the patient's fianc? called and stated that she had had 3 seizures at home. Physical Examination: Vitals: Stable. Afebrile. General: Well-nourished and well-developed. Head: Normocephalic atraumatic. Neck: Supple, no lymphadenopathy. No JVD. Nontender. Cardiovascular: Regular rate and rhythm. No murmurs. Respiratory: No respiratory distress. Clear to auscultation bilaterally. Abdominal: Soft, nontender, nondistended, normal bowel sounds. No guarding, rebound, or peritoneal signs. Back: Nontender. Extremities: Nontender, no edema. Skin: Normal color, no rash. Neurologic: Postictal. Withdraws to painful stimuli. Psych: Normal affect. Test Results: CT brain shows chronic changes. No acute disease. CBC is normal. Chem-7 is more for potassium 3.4 and glucose 122. Emergency Department Course and Treatment: I attempt to get a hold the patient's fianc? without success. Patient's daughter present in the emergency department. She reports that she thought the patient was still in halfway. The patient's postictal episode has resolved. She reports that she got out of halfway 2 days ago. She has been using meth since then. Treatment Plan: Patient has not been compliant with her Keppra. She was given a gram of Keppra IV in the emergency department. She is instructed to take her Keppra as previously prescribed. Follow-up with Dr. Wilber Mitchell in 1-2 days not improving. Follow-up with your neurologist as soon as possible. She reports she has a hard time getting up to [place] to see her neurologist. She was given the name of Dr. Seth for neurology here. Return to the emergency department for any worsening symptoms. Disposition: To home in improved and stable condition. Impression: 1. Seizure, recurrent. 2. Medication noncompliance. 3. Methamphetamine abuse. This note was generated with [employer] software. It may contain incorrect words, spelling, and punctuation that were not noted in review of the chart prior to signing ED Disposition - Plan for ED Patient: Chief Complaint: Seizure Instructions: ED Seizure Recurrent Referrals: Giancarlo Espinosa MD [Primary Care Provider] - 1-2 Days if not improving Ruddy Seth MD [STAFF PHYSICIAN] - As soon as possible Additional Instructions: Take your Keppra as prescribed. Do NOT use meth. It increases your risk of seizures.
[2018-03-15 08:40] VITALS: BP 122/87; PULSE 104; RESP 18; O2SAT 99
== END 2018-03-15 08:41 | disposition home or self-care (01) ==
PROVIDERS: Emergency Provider Emergency Medicine; Family Provider Family Medicine; PCP Family Medicine
DX: G40.909 Epilepsy, unspecified, not intractable, without status epilepticus (principal); G35 Multiple sclerosis; Z91.14 Patient's other noncompliance with medication regimen; F15.10 Other stimulant abuse, uncomplicated; Z79.899 Other long term (current) drug therapy
CPT/HCPCS: 70450; 80048; 85025; 96361; 96365; 96375

== ENCOUNTER 2018-03-15 11:22 | Inpatient (IN) | payer MEDICAID, SELFPAY ==
[2018-03-15] VITALS (8 sets, daily range): BP systolic 110–118; BP diastolic 50–97; PULSE 96–111; RESP 16–27; TEMP 36.6–37.2; O2SAT 96; BMI 30.7; BMI 21.9; BMI 27.2
[2018-03-15 12:10] LABS: Mucous, Urine 0 SEEN /hpf (<or=2+)
[2018-03-15 12:14] LABS: Color, Urine Yellow (Yellow); Glucose, Dipstick Normal (Normal); Ketone-Dipstick 5 mg/dl (Negative); Leukocyte Esterase-Dipstick 25 /ul (Negative); Nitrite-Dipstick Positive (Negative); Occult Blood-Urine 10 /ul (Negative); Protein-Dipstick 15 mg/dl (Negative); Specific Gravity, Urine 1.015 (1.002-1.030); Urine Bilirubin Dipstick Negative (Negative); Urine Clarity Sl. Cloudy (Clear); Urine Urobilinogen Normal (Normal)
--- NOTE | 2018-03-15 12:14 | CT_ITS ---
STUDY: CT BRAIN WITHOUT CONTRAST REASON FOR EXAM: Female, 38 years old. Overdose. Seizures. RADIATION DOSAGE (If Supplied By Facility): CTDIvol = ( 51.64 ) mGy, DLP = ( 4342.20 ) mGycm TECHNIQUE: Transaxial CT imaging of the brain was performed without administration of intravenous contrast material. Individualized dose optimization techniques were used for this CT. COMPARISON: Comparison is made with prior study dated September 12, 2018 at 7:49 AM. FINDINGS: Normal soft tissue structures. Normal calvarium. Normal size ventricles and extra-axial spaces for the patient's age. Normal white matter tracts of the cerebral hemispheres. Normal basal ganglia and thalami. Normal brainstem. Normal cerebellum. There is no intracranial hemorrhage. There are no findings of an acute ischemic infarction. Normal visualized paranasal sinuses. CT/Brain/Head without Contrast IMPRESSION: Normal unenhanced CT scan of the brain. Electronically Signed: Reid Wright MD at 13:13 EST Tel [phone], Service support ,
--- NOTE | 2018-03-15 12:14 | CT_ITS ---
STUDY: CT CERVICAL SPINE WITHOUT CONTRAST REASON FOR EXAM: Female, 38 years old. Overdose. Seizures. RADIATION DOSAGE (If Supplied By Facility): CTDIvol = ( 51.64 ) mGy, DLP = ( 4342.20 ) mGycm TECHNIQUE: High resolution transaxial imaging was performed without contrast material. Sagittal and coronal images were reconstructed. Individualized dose optimization techniques were used for this CT. COMPARISON: Comparison is made with prior study dated May 21, 2016. FINDINGS: Normal craniovertebral junction. Normal anterior atlantoaxial articulation. Normal odontoid process. There is straightening of the normal cervical lordosis. Normal vertebral bodies and posterior osseous elements. C2-3: Normal endplates. Normal disc height and morphology. Normal central canal and intervertebral neuroforamina. C3-4: Normal endplates. Normal disc height and morphology. Normal central canal and intervertebral neuroforamina. C4-5: Normal endplates. Normal disc height and morphology. Normal central canal and intervertebral neuroforamina. C5-6: Normal endplates. Normal disc height and morphology. Normal central canal and intervertebral neuroforamina. C6-7: Normal endplates. Normal disc height and morphology. Normal central canal and intervertebral neuroforamina. C7-T1: Normal endplates. Normal disc height and morphology. Normal central canal and intervertebral neuroforamina. Normal visualized soft tissue structures. CT/Spine Cervical without Contras IMPRESSION: Normal unenhanced CT examination of the cervical spine. Electronically Signed: Reid Wright MD at 13:33 EST Tel [phone], Service support ,
--- NOTE | 2018-03-15 12:14 | CT_ITS ---
STUDY: CT FACIAL BONES WITHOUT CONTRAST REASON FOR EXAM: Female, 38 years old. Overdose. Seizure activity. RADIATION DOSAGE (If Supplied By Facility): CTDIvol = ( 51.64 ) mGy, DLP = ( 4342.20 ) mGycm TECHNIQUE: The patient was scanned in a multi detector CT scanner. Sagittal and coronal images were reconstructed. Individualized dose optimization techniques were used for this CT. COMPARISON: None. FINDINGS: Normal soft tissue structures. Normal orbital freire and orbital contents. Normal nasal bones and anterior nasal spine. Nasal septal deviation towards the right side of the midline. Normal facial bones. There is no demonstrated fracture. Normal visualized paranasal sinuses. CT/Sinus/Facial Bone IMPRESSION: Normal unenhanced CT of the facial bones. Electronically Signed: Reid Wright MD at 13:32 EST Tel [phone], Service support ,
[2018-03-15 12:15] LABS: Internal QC Validated? YES +Cl - CLEAR BKGD; Pregnancy, Urine Negative Negative
[2018-03-15 12:24] LABS: Bacteria 1+ /hpf (None Seen); Red Blood Cells-Urine 0-5 SEEN /hpf (0-5); Squamous Epithelial Cells - UA 0-5 SEEN /hpf (5-10); White Blood Cells 0-5 SEEN /hpf (0-5)
[2018-03-15 12:25] LABS: Amphetamine Urine VISTA POSITIVE (<1000 ng/mL); Barbiturate Urine VISTA NEGATIVE (< 200 ng/mL); Benzodiazepine Urine VISTA NEGATIVE (< 200 ng/mL); Cocaine Urine VISTA NEGATIVE (< 300 ng/mL); Ecstacy Urine VISTA NEGATIVE (< 500 ng/mL); Methadone Urine VISTA NEGATIVE (< 300 ng/mL); PCP Urine VISTA NEGATIVE (< 25 ng/mL); THC Urine VISTA NEGATIVE (< 50 ng/mL); Vista UDS pH Range 6
[2018-03-15 13:02] LABS: Alcohol, Blood (Medical)-Serum < 3.0 mg/dL
--- NOTE | 2018-03-15 14:10 | CON.PCM_ITS ---
Problem List (1) Seizure Status: Acute Reason for Consult Date of Consultation: 03/15/18 Reason for Consultation: Seizure History of Present Illness: The patient is a 38 year old F with PMH Polysubstance abuse, seizures, depressi on admitted with seizures. Patient is a poor historian, history obtained from medical records and documentation as well as from patient. Per documentation patient was admitted with [facility]Cs this morning (03/15/18), was post ictal, was loaded with Keppra 1 g IV once, later symptoms resolved and was discharged, later again came back to the ED with break through seizures, patient denies any tongue bite or urinary incontinence, per documentation is on Keppra is non compliant with her medications, had recently been in the retirement, had started doing meth again. She was diagnosed with MS many years ago in [place] per documentation, but her MRI brain/MRI C spine and MRI T spine done in April 2016 did not show any MS lesion and LP was documented to be normal. Patient does complaint of long standing history of seizures for about past 10 yrs or so and also complaints of left sided sensory loss for many years. At present denies any BONILLA, visual disturbances, focal motor weakness, new onset sensory loss but has been moving her whole body in a functional manner. [] Past Medical History Past Medical History (Chronic Problems): Chronic Problems Anxiety and depression (Chronic) Transverse myelitis (Chronic) GERD (gastroesophageal reflux disease) (Chronic) BMI 33.0-33.9,adult (Chronic) Allergies naproxen [From Naprosyn] Allergy (Verified 03/15/18 11:23) Hives Home Medications: Ambulatory Orders Medication Instructions Recorded Levetiracetam [Keppra] 500 mg PO BID 11/17/17 Amitriptyline HCl [Elavil] 100 mg PO TID 03/15/18 Diphenoxylate HCl/Atropine 1 each PO 4X/DAY PRN 03/15/18 [Lomotil 2.5-0.025 mg Tablet] Ferrous Sulfate 325 mg PO DAILY 03/15/18 Gabapentin 800 mg PO 4X/DAY 03/15/18 Meloxicam 15 mg PO DAILY 03/15/18 Omeprazole 20 mg PO DAILY 03/15/18 Ondansetron [Zofran Odt] 4 mg PO Q8H PRN PRN 03/15/18 Surgical History: appendectomy, - - Fallopian tubes tied Psychiatric History: No pertinent psych hx 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 Smoking Status: Never smoker Drugs: - - meth - *Family History Maternal History Items: No pertinent history Paternal History Items: No pertinent history Review of Systems Constitutional: Reports: - - complete ROS negative except as documented in HPI Patient Problems: Active and Suspected Problems Seizure (Acute) - Physical Exam General: Alert HEENT: Normocephalic Neck: Supple Lungs: Normal air movement Cardiovascular: Normal S1, Normal S2 Abdomen: Bowel Sounds Present Extremities: No cyanosis Neurological: - - awake, pupils BERL, CN 2-12 grossly intact, moves all 4 extremities, subjective sensory loss on left side, Reflexes + B/L B/S/T/K/A, plantars B/L flexor, gait deferred, Reflexes + B/L B/S/T/K/A. Vital Signs Temp Pulse Resp BP Pulse Ox 98.9 F 103 H 16 110/84 H 96 03/15/18 11:24 03/15/18 12:55 03/15/18 12:55 03/15/18 12:55 03/15/18 12:55 Oxygen Delivery Method Room Air Weight: 63.503 kg Body Mass Index (BMI) 21.9 Finger Stick Blood Glucose 62 Laboratory Tests Past 24 Hrs 03/15/18 03/15/18 03/15/18 11:55 11:55 11:55 Urine Color Yellow Urine Clarity Sl. Cloudy Urine pH 6.0 Ur Specific Thompson 1.015 Urine Protein 15 H Urine Glucose (UA) Normal Urine Ketones 5 H Urine Occult Blood 10 H Urine Nitrite Positive H Urine Bilirubin Negative Urine Urobilinogen Normal Ur Leukocyte Esterase 25 H Urine RBC 0-5 SEEN Urine WBC 0-5 SEEN Ur Squamous Epith Cells 0-5 SEEN Urine Bacteria 1+ Urine Mucus 0 SEEN Urine Test Negative Urine Opiates Screen NEGATIVE Urine Methadone Screen NEGATIVE Ur Barbiturates Screen NEGATIVE Ur Phencyclidine Scrn NEGATIVE Ur Amphetamines Screen POSITIVE H U Methamphetamin-MDMA NEGATIVE U Benzodiazepines Scrn NEGATIVE Urine Cocaine Screen NEGATIVE U Cannabinoids Screen NEGATIVE Ur Drug Screen Comment Ethyl Alcohol 03/15/18 12:02 Urine Color Urine Clarity Urine pH Ur Specific Thompson Urine Protein Urine Glucose (UA) Urine Ketones Urine Occult Blood Urine Nitrite Urine Bilirubin Urine Urobilinogen Ur Leukocyte Esterase Urine RBC Urine WBC Ur Squamous Epith Cells Urine Bacteria Urine Mucus Urine Test Urine Opiates Screen Urine Methadone Screen Ur Barbiturates Screen Ur Phencyclidine Scrn Ur Amphetamines Screen U Methamphetamin-MDMA U Benzodiazepines Scrn Urine Cocaine Screen U Cannabinoids Screen Ur Drug Screen Comment Ethyl Alcohol < 3.0 Assessment/Plan All Active Problems Seizure (Acute) Methamphetamine intoxication (Acute) Acute encephalopathy (Acute) Methamphetamine abuse (Acute) High anion gap metabolic acidosis (Acute) Drug overdose (Acute) Encephalopathy (Acute) Altered mental status (Acute) The patient is a 38 year old F with PMH Polysubstance abuse, seizures, depression admitted with seizures. Patient is a poor historian, history obtained from medical records and documentation as well as from patient. Per documentation patient was admitted with GTCs this morning (03/15/18), was post ictal, was loaded with Keppra 1 g IV once, later symptoms resolved and was discharged, later again came back to the ED with break through seizures, patient denies any tongue bite or urinary incontinence, per documentation is on Keppra is non compliant with her medications, had recently been in the retirement, had started doing meth again. She was diagnosed with MS many years ago in [place] per documentation, but her MRI brain/MRI C spine and MRI T spine done in April 2016 did not show any MS lesion and LP was documented to be normal. Patient does complaint of long standing history of seizures for about past 10 yrs or so and also complaints of left sided sensory loss for many years. At present denies any BONILLA, visual disturbances, focal motor weakness, new onset sensory loss but has been moving her whole body in a functional manner. Impression Possible Break through seizure Poly substance abuse vs possible Conversion d/o Unlikely to be MS based on her previous neuroimaging and work up Plan -Patient will be admitted for further work up and observation. -Check MRI brain w/w/o contrast -Check EEG -Increase Keppra to 750 mg PO BID -On gabapentin and Elavil -Check UA, UDS, CBC and CMP -Patient counseled not to smoke, consume alcohol or do drugs -Psychiatry consult -Patient counseled not to drive for 6 months -Seizure precautions discussed in detail -GI/DVT prophylaxis -Fall precautions -Further medical management per ED and hospitalist -Please call with questions if any -Follow up with Neurology as outpatient in 4-6 weeks -Thank you for allowing us to participate in patient's care and management Code Visit Inpatient E&M: 76854 Init Hosp L3
--- NOTE | 2018-03-15 14:14 | PCM.HP.STD ---
Problem List (1) Acute encephalopathy Status: Acute (2) Seizure Status: Acute (3) Methamphetamine intoxication Status: Acute (4) Anxiety and depression Status: Chronic (5) GERD (gastroesophageal reflux disease) Status: Chronic Qualifiers: Esophagitis presence: esophagitis presence not specified Qualified Code(s): K21.9 - Gastro-esophageal reflux disease without esophagitis History of Present Illness Date of Admission: 03/15/18 Chief Complaint: Seizure activity The patient is a 38 y/o F w/ PMHx: Seizure disorder, Anxiety and Depression, Polysubstance Abuse, Chronic L Sided sensory loss, ? Prior MS diagnosis but normal LP and prior MRI imaging who presents to the [facility] ED on 03/15/17 with history of onset generalized TC seizure activity early in the AM on day of presentation w/ initial ED evaluation at that time noted to be postictal with keppra 1 gm IV loadings with resolution of symptoms and discharge at that time who now re-presents to the ED with again breakthrough seizure activity without any tongue biting, loss or bowel or bladder witnessed by her daughter with fall while she was walking up the stairs secondary to onset seizures while walking up the stairs. Per history she had been compliant with her Keppra but has been using methamphetamine again since getting out of skilled nursing the day prior. She notes once more alert that she likely has not taken her seizure medications for 3-4 days. Work-up in the ED included T 98.9, heart rate 103, BP 110/84, respiratory rate 16, 96% on room air, urinalysis with 15 protein, 5 ketones, 10 occult blood, nitrite positive, leukocyte esterase 25, bacteria 1+, no WBCs noted however, urine drug screen positive for amphetamines, unremarkable alcohol level, CBC from earlier in the day with WBC 7.7, hemoglobin 13, platelet 302 without shift, BMP from earlier in the day with sodium 144, potassium 3.4, chloride 107, carbon dioxide 23, BUN/Cr 7/0.99, glucose 122, the brain unremarkable, CT cervical spine unremarkable, CT facial and sinus unremarkable. ED patient administered IV Ativan. EMS found syringe on scene. Neurology evaluated patient in the ED and recommended admission, MRI, EEG and increase of her keppra regimen. Past Medical History Past Medical History (Chronic Problems): Chronic Problems Anxiety and depression (Chronic) Transverse myelitis (Chronic) GERD (gastroesophageal reflux disease) (Chronic) BMI 33.0-33.9,adult (Chronic) Allergies naproxen [From Naprosyn] Allergy (Verified 03/15/18 11:23) Hives Home Medications: Ambulatory Orders Medication Instructions Recorded Levetiracetam [Keppra] 500 mg PO BID 11/17/17 Amitriptyline HCl [Elavil] 100 mg PO TID 03/15/18 Diphenoxylate HCl/Atropine 1 each PO 4X/DAY PRN 03/15/18 [Lomotil 2.5-0.025 mg Tablet] Ferrous Sulfate 325 mg PO DAILY 03/15/18 Gabapentin 800 mg PO 4X/DAY 03/15/18 Meloxicam 15 mg PO DAILY 03/15/18 Omeprazole 20 mg PO DAILY 03/15/18 Ondansetron [Zofran Odt] 4 mg PO Q8H PRN PRN 03/15/18 Surgical History: appendectomy, - - Fallopian tubes tied Psychiatric History: No pertinent psych hx 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 - *Family History Maternal History Items: - - Patient denies any marked maternal or paternal family history including heart disease, diabetes, cancer. Paternal History Items: - - Patient denies any marked maternal or paternal family history including heart disease, diabetes, cancer. Review of Systems Constitutional: Reports: Malaise, Weakness, Fatigue. Denies: Chills, Fever, Weight Change HEENT: Reports: Head Aches. Denies: Sinus Congestion, Sinus Drainage Cardiovascular: Denies: Chest Pain, Palpitations Respiratory: Denies: Cough, Shortness of breath at rest, Sputum production Gastrointestinal: Denies: Abdominal Pain, Nausea, Vomiting Genitourinary: Reports: Incontinence. Denies: Dysuria Musculoskeletal: Denies: Joint Pain, Joint Tenderness Skin: Denies: Rash, Wounds Neurological: Reports: Confusion, Headaches, Numbness, Tingling, Seizures. Denies: Focal weakness Psychiatric: Reports: Anxiety, Depression. Denies: Homicidal Ideations, Suicidal Ideations Hematologic/ Lymphatic: Reports: Anemia. Denies: Easy Bruising, Easy Bleeding VTE Information - Inpt Only VTE Present on Admission: No VTE Mechan Device Prophylaxis: SCD's VTE Pharm Prophylaxis ordered?: Yes Patient Problems: Active and Suspected Problems Seizure (Acute) Subjective: Laying in the ED bed, more alert, admits now that she is not taking her antiepileptics for at least 3-4 days. Objective: Physical Examination: General: awake, alert, oriented x [address] being hospital, year and month as recently extremely postictal, markedly improving, cooperative, seated upright in the ED bed in no apparent distress. Skin: normal color, turgor, no icterus, cyanosis except notable diffuse very staged ecchymoses and injection sites. HEENT: AT/NC, EOMI, PERRLA, dry MM, no carotid bruits or JVD noted. Lungs: CTA bilaterally, moderate effort, mild decrease BL bases, no rales, ronchi or wheezing. Heart: Regular rate and rhythm; no gallop, rub audible. Abdomen: soft, NTTP, ND, normal BS, no HSM. Extremities: no cyanosis, clubbing, or edema, see skin. Neurological: patient awake, alert, oriented x 3 noted above; cognitive function really improving, appears baseline intact now as previously was postictal; pupils equally reactive to light and accomodation; cranial nerves II-XII grossly normal, moving all 4 extremities, no focal deficits, strength mildly to moderately globally decreased secondary to acute presentation. Psychiatric: affect appears fatigued, mildly anxious, scratching and moving about constantly in the bed, no acute evidence of depressive feelings. - Physical Exam Vital Signs Temp Pulse Resp BP Pulse Ox 98.9 F 103 H 16 110/84 H 96 03/15/18 11:24 03/15/18 12:55 03/15/18 12:55 03/15/18 12:55 03/15/18 12:55 Oxygen Delivery Method Room Air Weight: 140 lb Body Mass Index (BMI) 21.9 Finger Stick Blood Glucose 62 Laboratory Tests Past 24 Hrs 03/15/18 03/15/18 03/15/18 11:55 11:55 11:55 Urine Color Yellow Urine Clarity Sl. Cloudy Urine pH 6.0 Ur Specific [place] 1.015 Urine Protein 15 H Urine Glucose (UA) Normal Urine Ketones 5 H Urine Occult Blood 10 H Urine Nitrite Positive H Urine Bilirubin Negative Urine Urobilinogen Normal Ur Leukocyte Esterase 25 H Urine RBC 0-5 SEEN Urine WBC 0-5 SEEN Ur Squamous Epith Cells 0-5 SEEN Urine Bacteria 1+ Urine Mucus 0 SEEN Urine Test Negative Urine Opiates Screen NEGATIVE Urine Methadone Screen NEGATIVE Ur Barbiturates Screen NEGATIVE Ur Phencyclidine Scrn NEGATIVE Ur Amphetamines Screen POSITIVE H U Methamphetamin-MDMA NEGATIVE U Benzodiazepines Scrn NEGATIVE Urine Cocaine Screen NEGATIVE U Cannabinoids Screen NEGATIVE Ur Drug Screen Comment Ethyl Alcohol 03/15/18 12:02 Urine Color Urine Clarity Urine pH Ur Specific [place] Urine Protein Urine Glucose (UA) Urine Ketones Urine Occult Blood Urine Nitrite Urine Bilirubin Urine Urobilinogen Ur Leukocyte Esterase Urine RBC Urine WBC Ur Squamous Epith Cells Urine Bacteria Urine Mucus Urine Test Urine Opiates Screen Urine Methadone Screen Ur Barbiturates Screen Ur Phencyclidine Scrn Ur Amphetamines Screen U Methamphetamin-MDMA U Benzodiazepines Scrn Urine Cocaine Screen U Cannabinoids Screen Ur Drug Screen Comment Ethyl Alcohol < 3.0 Assessment/Plan All Active Problems Seizure (Acute) Methamphetamine intoxication (Acute) Acute encephalopathy (Acute) Methamphetamine abuse (Acute) High anion gap metabolic acidosis (Acute) Drug overdose (Acute) Encephalopathy (Acute) Altered mental status (Acute) The patient is a 38 y/o F w/ PMHx: Seizure disorder, Anxiety and Depression, Polysubstance Abuse, Chronic L Sided sensory loss, ? Prior MS diagnosis but normal LP and prior MRI imaging who presents to the [facility] ED on 03/15/17 with history of onset generalized TC seizure activity early in the AM on day of presentation w/ initial ED evaluation at that time noted to be postictal with keppra 1 gm IV loadings with resolution of symptoms and discharge at that time who now re-presents to the ED with again breakthrough seizure activity without any tongue biting, loss or bowel or bladder witnessed by her daughter with fall while she was walking up the stairs secondary to onset seizures while walking up the stairs. (1) Mechanical Fall secondary to Acute Encephalopathy (Toxic, metabolic) secondary to Tonic Clonic Generalized Seizure Activity secondary to Non-compliance complicated by Polysubstance abuse: Will admit to PCU, maintain on telemetry, maintain on seizure precautions, allow diet as continuing to improve, obtain MRI brain with and without contrast, increase keppra to 750 mg BID, PRN IV ativan, recent earlier in AM CBC not marked and not marked BMP, will obtain liver profile, repeat labs in AM, CM/SW consultation to assist w/ substance abuse, encourage outpatient psychiatric evaluation and care. We will continue gabapentin and Elavil per neurology recommendation. Neurology consulted and following. (2) Polysubstance abuse: Encourage cessation and clean status, will obtain HIV and hepatitis panel given IV drug abuse, case management and social work consultation for substance abuse planning for discharge. Given recently out of skilled nursing this likely violates her parole although she is unclear on recent incarceration. (3) Iron deficiency anemia: Continue home iron supplementation. (4) Anxiety and Depression: Will benefit strongly from outpatient psychiatric evaluation and management. Management and social work consulted for discharge planning. (5) GERD: PPI. (6) DVT Prophylaxis: SCDs, lovenox. Code Visit Inpatient E&M: 82166 Init Hosp L3
--- NOTE | 2018-03-15 14:19 | HP.PCM_ITS ---
Problem List (1) Acute encephalopathy Status: Acute (2) Seizure Status: Acute (3) Methamphetamine intoxication Status: Acute (4) Anxiety and depression Status: Chronic (5) GERD (gastroesophageal reflux disease) Status: Chronic Qualifiers: Esophagitis presence: esophagitis presence not specified Qualified Code(s): K21.9 - Gastro-esophageal reflux disease without esophagitis History of Present Illness Date of Admission: 03/15/18 Chief Complaint: Seizure activity The patient is a 38 y/o F w/ PMHx: Seizure disorder, Anxiety and Depression, Polysubstance Abuse, Chronic L Sided sensory loss, ? Prior MS diagnosis but normal LP and prior MRI imaging who presents to the [facility] ED on 03/15/17 with history of onset generalized TC seizure activity early in the AM on day of presentation w/ initial ED evaluation at that time noted to be postictal with keppra 1 gm IV loadings with resolution of symptoms and discharge at that time who now re-presents to the ED with again breakthrough seizure activity without any tongue biting, loss or bowel or bladder witnessed by her daughter with fall while she was walking up the stairs secondary to onset seizures while walking up the stairs. Per history she had been compliant with her Keppra but has been using methamphetamine again since getting out of [facility] the day prior. She notes once more alert that she likely has not taken her seizure medications for 3-4 days. Work-up in the ED included T 98.9, heart rate 103, BP 110/84, respiratory rate 16, 96% on room air, urinalysis with 15 protein, 5 ketones, 10 occult blood, nitrite positive, leukocyte esterase 25, bacteria 1+, no WBCs noted however, urine drug screen positive for amphetamines, unremarkable alcohol level, CBC from earlier in the day with WBC 7.7, hemoglobin 13, platelet 302 without shift, BMP from earlier in the day with sodium 144, potassium 3.4, chloride 107, carbon dioxide 23, BUN/Cr 7/0.99, glucose 122, the brain unremarkable, CT cervical spine unremarkable, CT facial and sinus unremarkable. ED patient administered IV Ativan. EMS found syringe on scene. Neurology evaluated patient in the ED and recommended admission, MRI, EEG and increase of her keppra regimen. Past Medical History Past Medical History (Chronic Problems): Chronic Problems Anxiety and depression (Chronic) Transverse myelitis (Chronic) GERD (gastroesophageal reflux disease) (Chronic) BMI 33.0-33.9,adult (Chronic) Allergies naproxen [From Naprosyn] Allergy (Verified 03/15/18 11:23) Hives Home Medications: Ambulatory Orders Medication Instructions Recorded Levetiracetam [Keppra] 500 mg PO BID 11/17/17 Amitriptyline HCl [Elavil] 100 mg PO TID 03/15/18 Diphenoxylate HCl/Atropine 1 each PO 4X/DAY PRN 03/15/18 [Lomotil 2.5-0.025 mg Tablet] Ferrous Sulfate 325 mg PO DAILY 03/15/18 Gabapentin 800 mg PO 4X/DAY 03/15/18 Meloxicam 15 mg PO DAILY 03/15/18 Omeprazole 20 mg PO DAILY 03/15/18 Ondansetron [Zofran Odt] 4 mg PO Q8H PRN PRN 03/15/18 Surgical History: appendectomy, - - Fallopian tubes tied Psychiatric History: No pertinent psych hx 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 - *Family History Maternal History Items: - - Patient denies any marked maternal or paternal family history including heart disease, diabetes, cancer. Paternal History Items: - - Patient denies any marked maternal or paternal family history including heart disease, diabetes, cancer. Review of Systems Constitutional: Reports: Malaise, Weakness, Fatigue. Denies: Chills, Fever, Weight Change HEENT: Reports: Head Aches. Denies: Sinus Congestion, Sinus Drainage Cardiovascular: Denies: Chest Pain, Palpitations Respiratory: Denies: Cough, Shortness of breath at rest, Sputum production Gastrointestinal: Denies: Abdominal Pain, Nausea, Vomiting Genitourinary: Reports: Incontinence. Denies: Dysuria Musculoskeletal: Denies: Joint Pain, Joint Tenderness Skin: Denies: Rash, Wounds Neurological: Reports: Confusion, Headaches, Numbness, Tingling, Seizures. Denies: Focal weakness Psychiatric: Reports: Anxiety, Depression. Denies: Homicidal Ideations, Suicidal Ideations Hematologic/ Lymphatic: Reports: Anemia. Denies: Easy Bruising, Easy Bleeding VTE Information - Inpt Only VTE Present on Admission: No VTE Mechan Device Prophylaxis: SCD's VTE Pharm Prophylaxis ordered?: Yes Patient Problems: Active and Suspected Problems Seizure (Acute) Subjective: Laying in the ED bed, more alert, admits now that she is not taking her antiepileptics for at least 3-4 days. Objective: Physical Examination: General: awake, alert, oriented x [address] being hospital, year and month as recently extremely postictal, markedly improving, cooperative, seated upright in the ED bed in no apparent distress. Skin: normal color, turgor, no icterus, cyanosis except notable diffuse very staged ecchymoses and injection sites. HEENT: AT/NC, EOMI, PERRLA, dry MM, no carotid bruits or JVD noted. Lungs: CTA bilaterally, moderate effort, mild decrease BL bases, no rales, ronchi or wheezing. Heart: Regular rate and rhythm; no gallop, rub audible. Abdomen: soft, NTTP, ND, normal BS, no HSM. Extremities: no cyanosis, clubbing, or edema, see skin. Neurological: patient awake, alert, oriented x 3 noted above; cognitive function really improving, appears baseline intact now as previously was postictal; pupils equally reactive to light and accomodation; cranial nerves II-XII grossly normal, moving all 4 extremities, no focal deficits, strength mildly to moderately globally decreased secondary to acute presentation. Psychiatric: affect appears fatigued, mildly anxious, scratching and moving about constantly in the bed, no acute evidence of depressive feelings. - Physical Exam Vital Signs Temp Pulse Resp BP Pulse Ox 98.9 F 103 H 16 110/84 H 96 03/15/18 11:24 03/15/18 12:55 03/15/18 12:55 03/15/18 12:55 03/15/18 12:55 Oxygen Delivery Method Room Air Weight: 140 lb Body Mass Index (BMI) 21.9 Finger Stick Blood Glucose 62 Laboratory Tests Past 24 Hrs 03/15/18 03/15/18 03/15/18 11:55 11:55 11:55 Urine Color Yellow Urine Clarity Sl. Cloudy Urine pH 6.0 Ur Specific [place] 1.015 Urine Protein 15 H Urine Glucose (UA) Normal Urine Ketones 5 H Urine Occult Blood 10 H Urine Nitrite Positive H Urine Bilirubin Negative Urine Urobilinogen Normal Ur Leukocyte Esterase 25 H Urine RBC 0-5 SEEN Urine WBC 0-5 SEEN Ur Squamous Epith Cells 0-5 SEEN Urine Bacteria 1+ Urine Mucus 0 SEEN Urine Test Negative Urine Opiates Screen NEGATIVE Urine Methadone Screen NEGATIVE Ur Barbiturates Screen NEGATIVE Ur Phencyclidine Scrn NEGATIVE Ur Amphetamines Screen POSITIVE H U Methamphetamin-MDMA NEGATIVE U Benzodiazepines Scrn NEGATIVE Urine Cocaine Screen NEGATIVE U Cannabinoids Screen NEGATIVE Ur Drug Screen Comment Ethyl Alcohol 03/15/18 12:02 Urine Color Urine Clarity Urine pH Ur Specific [place] Urine Protein Urine Glucose (UA) Urine Ketones Urine Occult Blood Urine Nitrite Urine Bilirubin Urine Urobilinogen Ur Leukocyte Esterase Urine RBC Urine WBC Ur Squamous Epith Cells Urine Bacteria Urine Mucus Urine Test Urine Opiates Screen Urine Methadone Screen Ur Barbiturates Screen Ur Phencyclidine Scrn Ur Amphetamines Screen U Methamphetamin-MDMA U Benzodiazepines Scrn Urine Cocaine Screen U Cannabinoids Screen Ur Drug Screen Comment Ethyl Alcohol < 3.0 Assessment/Plan All Active Problems Seizure (Acute) Methamphetamine intoxication (Acute) Acute encephalopathy (Acute) Methamphetamine abuse (Acute) High anion gap metabolic acidosis (Acute) Drug overdose (Acute) Encephalopathy (Acute) Altered mental status (Acute) The patient is a 38 y/o F w/ PMHx: Seizure disorder, Anxiety and Depression, Polysubstance Abuse, Chronic L Sided sensory loss, ? Prior MS diagnosis but normal LP and prior MRI imaging who presents to the [facility] ED on 03/15/17 with history of onset generalized TC seizure activity early in the AM on day of presentation w/ initial ED evaluation at that time noted to be postictal with keppra 1 gm IV loadings with resolution of symptoms and discharge at that time who now re-presents to the ED with again breakthrough seizure activity without any tongue biting, loss or bowel or bladder witnessed by her daughter with fall while she was walking up the stairs secondary to onset seizures while walking up the stairs. (1) Mechanical Fall secondary to Acute Encephalopathy (Toxic, metabolic) secondary to Tonic Clonic Generalized Seizure Activity secondary to Non- compliance complicated by Polysubstance abuse: Will admit to PCU, maintain on telemetry, maintain on seizure precautions, allow diet as continuing to improve, obtain MRI brain with and without contrast, increase keppra to 750 mg BID, PRN IV ativan, recent earlier in AM CBC not marked and not marked BMP, will obtain liver profile, repeat labs in AM, CM/SW consultation to assist w/ substance abuse, encourage outpatient psychiatric evaluation and care. We will continue gabapentin and Elavil per neurology recommendation. Neurology consulted and following. (2) Polysubstance abuse: Encourage cessation and clean status, will obtain HIV and hepatitis panel given IV drug abuse, case management and social work consultation for substance abuse planning for discharge. Given recently out of [facility] this likely violates her parole although she is unclear on recent incarceration. (3) Iron deficiency anemia: Continue home iron supplementation. (4) Anxiety and Depression: Will benefit strongly from outpatient psychiatric evaluation and management. Management and social work consulted for discharge planning. (5) GERD: PPI. (6) DVT Prophylaxis: SCDs, lovenox. Code Visit Inpatient E&M: 76191 Init Hosp L3
--- NOTE | 2018-03-15 14:32 | NURSING ---
DR GOLDSMITH FOR DR MO
[2018-03-15] MEDS: LORazepam 2 MG/ML Syringe IM (14:51)
--- NOTE | 2018-03-15 14:51 | ED.VISSUMM ---
- ER Visit Summary Date of Service: 03/15/18 Chief Complaint: Seizure History of Present Illness: The patient is a 38 F with suspected seizure activity. She was seen last night for the same. The patient was recently released from nursing home and has been using methamphetamines. She had a seizure in the emergency department and was loaded with Keppra. Her workup was unremarkable and she was discharged. Shortly after she got home, she fell down half a flight of stairs. She did hit her face. She had shaking activity. Apparently the paramedics saw a syringe on scene. Patient is currently denying any complaints. She denies falling or trauma. Physical Examination: Afebrile and vital signs unremarkable except for a respiratory rate of 27. The patient is alert and oriented. She does have some bruises to her face, but these are old according the patient. Neck is nontender. Heart regular. Lungs clear. Abdomen soft. Extremities atraumatic. No focal or lateralizing neurologic abnormalities. Test Results: I reviewed the patient's labs from earlier this morning. I added on a urine drug screen which was positive for amphetamines. Alcohol was negative. Urinalysis unremarkable. test negative. CT of the brain, C-spine, and face performed. No acute abnormalities noted. Emergency Department Course and Treatment: Patient was monitored and had seizure precautions. She already received Keppra this morning. I spoke with Dr. Connor. He advised that if the patient recovers in the ED she can be discharged on Keppra 750 twice a day. Her workup did not reveal any acute trauma. Patient was monitored and had no further seizure activity. She was requesting to go home. I spoke with her daughter on the phone. Her daughter came to pick her up, and then the patient had shaking activity. I held her hand above her head, and she moved her arm away from her head. She was speaking in [facility]. I am not convinced this is a seizure, and rather I think it might be part of methamphetamine withdrawal. Patient has continued confusion and bizarre activity. I spoke with the hospitalist who will admit for further care. Treatment Plan: As above Disposition: Admission Impression: 1. Methamphetamine withdrawal 2. History of seizures This note was generated with [employer]zabase[employer] software. It may contain incorrect words, spelling, and punctuation that were not noted in review of the chart prior to signing ED Disposition - Plan for ED Patient: Chief Complaint: Seizure Referrals: Giancarlo Espinosa MD [Primary Care Provider] -
--- NOTE | 2018-03-15 14:55 | NURSING ---
PCU METH WITHDRAWAL, SEIZURE WHITE
--- NOTE | 2018-03-15 14:57 | ED.DCSUM_ITS ---
- ER Visit Summary Date of Service: 03/15/18 Chief Complaint: Seizure History of Present Illness: The patient is a 38 F with suspected seizure activity. She was seen last night for the same. The patient was recently released from long term and has been using methamphetamines. She had a seizure in the emergency department and was loaded with Keppra. Her workup was unremarkable and she was discharged. Shortly after she got home, she fell down half a flight of stairs. She did hit her face. She had shaking activity. Apparently the paramedics saw a syringe on scene. Patient is currently denying any complaints. She denies falling or trauma. Physical Examination: Afebrile and vital signs unremarkable except for a respiratory rate of 27. The patient is alert and oriented. She does have some bruises to her face, but these are old according the patient. Neck is nontender. Heart regular. Lungs clear. Abdomen soft. Extremities atraumatic. No focal or lateralizing neurologic abnormalities. Test Results: I reviewed the patient's labs from earlier this morning. I added on a urine drug screen which was positive for amphetamines. Alcohol was negative. Urinalysis unremarkable. test negative. CT of the brain, C-spine, and face performed. No acute abnormalities noted. Emergency Department Course and Treatment: Patient was monitored and had seizure precautions. She already received Keppra this morning. I spoke with Dr. Connor. He advised that if the patient recovers in the ED she can be discharged on Keppra 750 twice a day. Her workup did not reveal any acute trauma. Patient was monitored and had no further seizure activity. She was requesting to go home. I spoke with her daughter on the phone. Her daughter came to pick her up, and then the patient had shaking activity. I held her hand above her head, and she moved her arm away from her head. She was speaking in [facility]. I am not convinced this is a seizure, and rather I think it might be part of methamphetamine withdrawal. Patient has continued confusion and bizarre activity. I spoke with the hospitalist who will admit for further care. Treatment Plan: As above Disposition: Admission Impression: 1. Methamphetamine withdrawal 2. History of seizures This note was generated with [employer] software. It may contain incorrect words, spelling, and punctuation that were not noted in review of the chart prior to signing ED Disposition - Plan for ED Patient: Chief Complaint: Seizure Referrals: Giancarlo Espinosa MD [Primary Care Provider] -
--- NOTE | 2018-03-15 15:52 | MRI_ITS ---
STUDY: MRI BRAIN WITH AND WITHOUT CONTRAST REASON FOR EXAM: Female, 38 years old. Confusion, new seizure and drug abuse TECHNIQUE: Standardized multiplanar fat and water weighted pulse sequences were obtained. 7 ml of Gadavist contrast material was administered intravenously for the contrast portion of the examination. COMPARISON: CT brain March 15, 2018 FINDINGS: There is mild cerebral atrophy with widening of the extra-axial spaces and ventricular dilatation. Normal white matter tracts of the supratentorial brain. There is no evidence for recent intracranial ischemia or other cause of cytotoxic edema on diffusion weighted imaging (DWI). Normal bilateral basal ganglia. Normal thalami. There is no extra-axial fluid accumulation. Normal flow voids within the major intracranial circulation suggesting patency by spin echo criteria. Normal venous enhancement. There is no enhancing intra-axial or extra-axial abnormality. Normal sella turcica, pituitary gland, infundibular stalk, optic chiasm and hypothalamus. Normal tectal plate and pineal gland. Normal midbrain, dai and medulla. Normal cerebellum. Normal basal cisterns. Normal bilateral temporal bones. Normal bilateral internal auditory canals. No demonstrated orbital abnormality, within the constraints of a routine brain study. Normal visualized paranasal sinuses. Normal calvarium and skull base. Normal visualized soft tissue structures. Normal visualized upper cervical spine. MRI/Brain W/WO Contrast IMPRESSION: Normal unenhanced and enhanced MRI of the brain. Electronically Signed: Aidan Huerta MD at 23:21 EST , Service support ,
[2018-03-15] MEDS: Acetaminophen 325 MG Tablet 650 MG PO (16:34)
[2018-03-15] MEDS: 0.9% Normal Saline 1,000 ML 125 ML IV (16:34)
[2018-03-15 16:40] LABS: AST(SGOT) 61 U/L (15-37); Alanine Aminotransfer ALT/SGPT 40 U/L (13-56); Albumin, Serum 3.6 g/dL (3.2-5.0); Alkaline Phosphatase 77 U/L (45-117); Bilirubin, Direct 0.13 mg/dL (0.00-0.30); Globulin 3.5 g/dL (2.2-4.2); Magnesium 1.9 mg/dL (1.6-2.6); Protein, Total 7.1 g/dL (6.4-8.2); Thyroid Stim Hormone (TSH) 1.35 uIU/mL (0.358-3.74)
[2018-03-15] MEDS: Gabapentin 800 MG Tablet PO ×2 (17:16→22:21)
[2018-03-15] MEDS: 0.9% NaCl Peripheral Flush Adult/Peds IV (17:18)
[2018-03-15 17:33] LABS: HIV - WCH Non-Reactive (Nonreactive)
[2018-03-15] MEDS: Amitriptyline 100 MG Tablet PO (22:21)
[2018-03-16] VITALS (12 sets, daily range): BP systolic 101–117; BP diastolic 66–87; PULSE 75–94; RESP 16–20; TEMP 36.4–36.8; O2SAT 95–99
[2018-03-16] MEDS: 0.9% Normal Saline 1,000 ML 125 ML IV ×3 (03:26→21:24)
[2018-03-16] MEDS: Acetaminophen 325 MG Tablet 650 MG PO ×3 (03:27→16:24)
[2018-03-16] MEDS: Amitriptyline 100 MG Tablet PO ×3 (06:30→21:24)
[2018-03-16 06:47] LABS: Absolute Lymphocyte Count 1.58 X10^3/ul (0.83-4.51); Absolute Neutrophil Count 5.5 X10^3/uL (2.0-7.7); Basophil# 0.01 X10^3/uL; Basophil% 0.1 % (0-1); Eosinophil# 0.02 X10^3/uL; Eosinophils% 0.2 % (0-5); Hematocrit 31.8 % (37-47); Hemoglobin 10.4 g/dl (12.0-15.0); Lymphocyte # 1.58 X10^3/ul (4.0); Lymphocyte % 19.7 % (19-41); Mean Corp Hgb Conc 32.7 g/gl (32-36); Mean Corpuscular Hgb 32.5 pg (27.0-32.0); Mean Corpuscular Volume 99.4 fL (81-99); Monocyte# 0.88 X10^3/uL; Neutrophil # 5.52 X10^3/uL (2.7-7.7); Neutrophil % 68.8 % (47-70); Platelet Count 292 K/mm3 (150-450); RBC Distribution Width CV 12.5 % (11.6-14.6)
[2018-03-16 06:48] LABS: POSITIVE COUNT NO; POSITIVE DIFFERENTIAL NO; POSITIVE MORPHOLOGY NO
[2018-03-16 07:10] LABS: AST(SGOT) 41 U/L (15-37); Alanine Aminotransfer ALT/SGPT 33 U/L (13-56); Alkaline Phosphatase 68 U/L (45-117); Anion Gap 8 (5-15); BUN 4 mg/dL (7-18); BUN/Creat Ratio 6.3 RATIO (10-20); Calcium,Total 7.9 mg/dL (8.5-10.1); Chloride 113 mmol/L (98-107); Creatinine, Serum 0.64 mg/dL (0.55-1.02); EST Glomerular Filtration Rate 111 mL/min (>60); Est Glom Filt Rate - Afr Amer 134 mL/min (>60); Estimated Creatinine Clearance 111.57 ml/min; Globulin 3.1 g/dL (2.2-4.2); Glucose 92 mg/dL (74-106); Potassium 3.5 mmol/L (3.5-5.1); Protein, Total 6.1 g/dL (6.4-8.2); Sodium Level 145 mmol/L (136-145)
[2018-03-16] MEDS: 0.9% NaCl Peripheral Flush Adult/Peds IV (07:55)
[2018-03-16] MEDS: Meloxicam 15 MG Tablet PO (09:01)
[2018-03-16] MEDS: Pantoprazole Sodium 20 MG Tablet PO (09:01)
[2018-03-16] MEDS: Ferrous Sulfate 325 MG Tablet PO (09:01)
[2018-03-16] MEDS: Enoxaparin 40 MG/0.4 ML Syringe SC (09:01)
[2018-03-16] MEDS: Gabapentin 800 MG Tablet PO ×4 (09:01→21:25)
--- NOTE | 2018-03-16 11:29 | PCM.PN.HOSP ---
Patient Problems: Active and Suspected Problems Seizure (Acute) Subjective: Patient was admitted with a complaint of generalized tonic-clonic seizure in the morning of presentation. She does have a history of seizure disorder, anxiety and depression as well as polysubstance abuse and a questionable history of MS. She has been using methamphetamine also. She is being managed for acute metabolic encephalopathy due to generalized seizure complicated by polysubstance abuse. Patient seen and examined. She was quite drowsy and says she did not know why she was here and she thought her grandfather had passed out and brought her. Subsequently she told me that she passed out but did not know whether she had a seizure or not. She denied any drug use there is documented that she has been using methamphetamine. She denied any fever or chills, any cough or chest pain, any shortness of breath, any abdominal pain, any diarrhea or vomiting. Review of systems otherwise negative. Labs and vitals reviewed. Vitals/I&O's: Vital Signs Temp Pulse Resp BP Pulse Ox 97.5 F L 90 20 H 112/77 98 03/16/18 10:22 03/16/18 11:00 03/16/18 10:22 03/16/18 10:22 03/16/18 10:22 Oxygen Delivery Method Room Air Weight: 169 lb Body Mass Index (BMI) 27.2 Finger Stick Blood Glucose 62 Intake and Output for Last 24 Hours 03/14/18 03/15/18 03/16/18 23:59 23:59 23:59 Intake Total 1198 / 1198 557 / 557 Balance 1198 / 1198 557 / 557 General: Alert, No apparent distress, Confused, Disoriented HEENT: Atraumatic, PERRLA, EOMI, Normocephalic Oral: Moist Mucosa Neck: Supple, No JVD, Negative Carotid Bruits Lungs: Clear to auscultation, Normal air movement, No rhonchi, No wheeze, No rales Cardiovascular: Regular rate, Regular Rhythm, Normal S1, Normal S2, No murmurs Abdomen: Bowel Sounds Present, Soft, Non Tender, Non-Distended, No Hepato-splenomegaly Extremities: No clubbing, No cyanosis, No edema, Capillary Refill Less than 3 Seconds Skin: No rashes, No breakdown Musculoskeletal: No Tenderness to Palpation of Joints or Extremities Lymphatic: No Cervical, Supraclavicular, or Inguinal Adenopathy Neurological: Cranial nerves II-XII grossly intact, Neuro grossly intact, Motor Exam 5/5 strength throughout Psych/Mental Status: - - confused Laboratory Results 03/15/18 11:55: Urine Opiates Screen NEGATIVE, Urine Methadone Screen NEGATIVE, Ur Barbiturates Screen NEGATIVE, Ur Phencyclidine Scrn NEGATIVE, Ur Amphetamines Screen POSITIVE H, U Methamphetamin-MDMA NEGATIVE, U Benzodiazepines Scrn NEGATIVE, Urine Cocaine Screen NEGATIVE, U Cannabinoids Screen NEGATIVE, Ur Drug Screen Comment 03/15/18 11:55: Urine Test Negative 03/15/18 11:55: Urine Color Yellow, Urine Clarity Sl. Cloudy, Urine pH 6.0, Ur Specific [place] 1.015, Urine Protein 15 H, Urine Glucose (UA) Normal, Urine Ketones 5 H, Urine Occult Blood 10 H, Urine Nitrite Positive H, Urine Bilirubin Negative, Urine Urobilinogen Normal, Ur Leukocyte Esterase 25 H, Urine RBC 0-5 SEEN, Urine WBC 0-5 SEEN, Ur Squamous Epith Cells 0-5 SEEN, Urine Bacteria 1+, Urine Mucus 0 SEEN 03/15/18 12:02: Ethyl Alcohol < 3.0 03/15/18 12:02: Magnesium 1.9, Total Bilirubin 0.30, Direct Bilirubin 0.13, AST 61 H, ALT 40, Alkaline Phosphatase 77, Total Protein 7.1, Albumin 3.6, Globulin 3.5, TSH 1.35 03/15/18 12:02: Hepatitis A IgM Ab Pending, Hepatitis A Ab Total Pending, Hep Bs Antigen Pending, Hep B Core Total Ab Pending, Hep B Core IgM Ab Pending 03/15/18 12:02: HIV 1&2 Antibody Non-Reactive 03/16/18 05:35: WBC 8.0, RBC 3.20 L, Hgb 10.4 L, Hct 31.8 L, MCV 99.4 H, MCH 32.5 H, MCHC 32.7, RDW 12.5, RDW Differential 44.0 H, Plt Count 292, MPV 10.0, Immature Gran % (Auto) 0.200, Neut % (Auto) 68.8, Lymph % (Auto) 19.7, [place] % (Auto) 11.0 H, Eos % (Auto) 0.2, Baso % (Auto) 0.1, Absolute Neuts (auto) 5.5, Absolute Lymphs (auto) 1.58, Total Counted Not Reportable 03/16/18 05:35: Sodium 145, Potassium 3.5, Chloride 113 H, Carbon Dioxide 24.0, Anion Gap 8, BUN 4 L, Creatinine 0.64, Estim Creat Clear Calc 111.57, Est GFR (MDRD) Af Amer 134, Est GFR (MDRD) Non-Af 111, BUN/Creatinine Ratio 6.3 L, Glucose 92, Calcium 7.9 L, Total Bilirubin 0.30, AST 41 H, ALT 33, Alkaline Phosphatase 68, Total Protein 6.1 L, Albumin 3.0 L, Globulin 3.1, Albumin/Globulin Ratio 1.[address] 03/15/18 12:14 IMPRESSION: Normal unenhanced CT scan of the brain. Electronically Signed: Reid Wright MD at 13:13 EST Tel [phone], Service support , Cervical Spine CT 03/15/18 12:14 IMPRESSION: Normal unenhanced CT examination of the cervical spine. Electronically Signed: Reid Wright MD at 13:33 EST Tel [phone], Service support , Facial/Sinus 03/15/18 12:14 IMPRESSION: Normal unenhanced CT of the facial bones. Electronically Signed: Reid Wright MD at 13:32 EST Tel [phone], Service support , Brain MRI 03/15/18 15:52 IMPRESSION: Normal unenhanced and enhanced MRI of the brain. Electronically Signed: Aidan Huerta MD at 23:21 EST , Service support , Current Medications Acetaminophen (Tylenol) 650 mg PO Q6H PRN PRN PRN Reason: Non-cardiac pain (mod-severe) Last Admin: 03/16/18 10:22 Dose: 650 mg Al Hydroxide/Mg Hydroxide (Mylanta Ii) 30 ml PO Q6H PRN PRN PRN Reason: Gastric burning Amitriptyline HCl (Elavil) 100 mg PO TID [facility] Last Admin: 03/16/18 06:30 Dose: 100 mg Diphenoxylate HCl/Atropine (Lomotil) 1 tablet PO 4X/DAY PRN PRN Reason: Diarrhea Enoxaparin Sodium (Lovenox) 40 mg SC DAILY@1000 [facility] Last Admin: 03/16/18 09:01 Dose: 40 mg Ferrous Sulfate (Ferrous Sulfate) 325 mg PO DAILY@0800 [facility] Last Admin: 03/16/18 09:01 Dose: 325 mg Gabapentin (Neurontin) 800 mg PO 4X/DAYCM [facility] Last Admin: 03/16/18 09:01 Dose: 800 mg Hydralazine HCl (Apresoline Iv) 10 mg IV Q4H PRN PRN PRN Reason: SBP > 160 Sodium Chloride () 1,000 mls @ 125 mls/hr IV .Q8H [facility] Last Admin: 03/16/18 03:26 Dose: 125 mls/hr Levetiracetam 750 mg/ N/A 150 mls @ 600 mls/hr IV Q12 [facility] Last Admin: 03/16/18 10:23 Dose: 600 mls/hr Lorazepam (Ativan) 1 mg PO Q4H PRN PRN PRN Reason: Seizure Magnesium Hydroxide (Milk Of Magnesia) 30 ml PO DAILY PRN PRN Reason: Constipation Meloxicam (Mobic) 15 mg PO DAILY [facility] Last Admin: 03/16/18 09:01 Dose: 15 mg Ondansetron HCl (Zofran) 4 mg IV Q8H PRN PRN PRN Reason: NAUSEA/VOMITING Pantoprazole Sodium (Protonix) 20 mg PO DAILY [facility] Last Admin: 03/16/18 09:01 Dose: 20 mg Promethazine HCl (Phenergan) 12.5 mg IV Q6H PRN PRN PRN Reason: NAUSEA/VOMITING Sodium Chloride () 5 - 15 ml IV UD PRN PRN Reason: SALINE FLUSH Last Admin: 03/16/18 07:55 Dose: 10 ml Medical Necessity - Tobacco Use Smoking Status: Never smoker Tobacco Use: Non-smoker Assessment/Plan All Active Problems Seizure (Acute) Methamphetamine intoxication (Acute) Acute encephalopathy (Acute) Methamphetamine abuse (Acute) High anion gap metabolic acidosis (Acute) Drug overdose (Acute) Encephalopathy (Acute) Altered mental status (Acute) 1. Acute metabolic encephalopathy due to generalised tonic clonic seizure non compliant with her seizure meds and also used methamphetamine CT brain was negative for any acute intracranial pathology neurology on board: received loading dose of Keppra in ED to get MRI of brain Keppra dose increased to 750mg bid EEG ordered seizure precautions 2. POlysubstance abuse: uses methamphetamine. Counseled to quit. 3. ??Multiple sclerosis per neuro notes, says she was diagnosed with MS in [place], but subsequent MRI and LP have been negative. neuro on board; do not think she likely has MS 4. Iron deficiency anemia: on home oral iron 5. Anxiety and depression: currently not on any meds. To follow up with a psychiatrist on outpatient basis. 6. GERD: on PPI DVT prophylaxis; lovenox Code Visit Inpatient E&M: 32461 Subs Hosp L3
--- NOTE | 2018-03-16 11:37 | PN_ITS ---
Patient Problems: Active and Suspected Problems Seizure (Acute) Subjective: Patient was admitted with a complaint of generalized tonic-clonic seizure in the morning of presentation. She does have a history of seizure disorder, anxiety and depression as well as polysubstance abuse and a questionable history of MS. She has been using methamphetamine also. She is being managed for acute metabolic encephalopathy due to generalized seizure complicated by polysubstance abuse. Patient seen and examined. She was quite drowsy and says she did not know why she was here and she thought her grandfather had passed out and brought her. Subsequently she told me that she passed out but did not know whether she had a seizure or not. She denied any drug use there is documented that she has been using methamphetamine. She denied any fever or chills, any cough or chest pain, any shortness of breath, any abdominal pain, any diarrhea or vomiting. Review of systems otherwise negative. Labs and vitals reviewed. Vitals/I&O's: Vital Signs Temp Pulse Resp BP Pulse Ox 97.5 F L 90 20 H 112/77 98 03/16/18 10:22 03/16/18 11:00 03/16/18 10:22 03/16/18 10:22 03/16/18 10:22 Oxygen Delivery Method Room Air Weight: 169 lb Body Mass Index (BMI) 27.2 Finger Stick Blood Glucose 62 Intake and Output for Last 24 Hours 03/14/18 03/15/18 03/16/18 23:59 23:59 23:59 Intake Total 1198 / 1198 557 / 557 Balance 1198 / 1198 557 / 557 General: Alert, No apparent distress, Confused, Disoriented HEENT: Atraumatic, PERRLA, EOMI, Normocephalic Oral: Moist Mucosa Neck: Supple, No JVD, Negative Carotid Bruits Lungs: Clear to auscultation, Normal air movement, No rhonchi, No wheeze, No rales Cardiovascular: Regular rate, Regular Rhythm, Normal S1, Normal S2, No murmurs Abdomen: Bowel Sounds Present, Soft, Non Tender, Non-Distended, No Hepato- splenomegaly Extremities: No clubbing, No cyanosis, No edema, Capillary Refill Less than 3 Seconds Skin: No rashes, No breakdown Musculoskeletal: No Tenderness to Palpation of Joints or Extremities Lymphatic: No Cervical, Supraclavicular, or Inguinal Adenopathy Neurological: Cranial nerves II-XII grossly intact, Neuro grossly intact, Motor Exam 5/5 strength throughout Psych/Mental Status: - - confused Laboratory Results 03/15/18 11:55: Urine Opiates Screen NEGATIVE, Urine Methadone Screen NEGATIVE, Ur Barbiturates Screen NEGATIVE, Ur Phencyclidine Scrn NEGATIVE, Ur Amphetamines Screen POSITIVE H, U Methamphetamin-MDMA NEGATIVE, U Benzodiazepines Scrn NEGATIVE, Urine Cocaine Screen NEGATIVE, U Cannabinoids Screen NEGATIVE, Ur Drug Screen Comment 03/15/18 11:55: Urine Test Negative 03/15/18 11:55: Urine Color Yellow, Urine Clarity Sl. Cloudy, Urine pH 6.0, Ur Specific [place] 1.015, Urine Protein 15 H, Urine Glucose (UA) Normal, Urine Ketones 5 H, Urine Occult Blood 10 H, Urine Nitrite Positive H, Urine Bilirubin Negative, Urine Urobilinogen Normal, Ur Leukocyte Esterase 25 H, Urine RBC 0-5 SEEN, Urine WBC 0-5 SEEN, Ur Squamous Epith Cells 0-5 SEEN, Urine Bacteria 1+, Urine Mucus 0 SEEN 03/15/18 12:02: Ethyl Alcohol < 3.0 03/15/18 12:02: Magnesium 1.9, Total Bilirubin 0.30, Direct Bilirubin 0.13, AST 61 H, ALT 40, Alkaline Phosphatase 77, Total Protein 7.1, Albumin 3.6, Globulin 3.5, TSH 1.35 03/15/18 12:02: Hepatitis A IgM Ab Pending, Hepatitis A Ab Total Pending, Hep Bs Antigen Pending, Hep B Core Total Ab Pending, Hep B Core IgM Ab Pending 03/15/18 12:02: HIV 1&2 Antibody Non-Reactive 03/16/18 05:35: WBC 8.0, RBC 3.20 L, Hgb 10.4 L, Hct 31.8 L, MCV 99.4 H, MCH 32.5 H, MCHC 32.7, RDW 12.5, RDW Differential 44.0 H, Plt Count 292, MPV 10.0, Immature Gran % (Auto) 0.200, Neut % (Auto) 68.8, Lymph % (Auto) 19.7, [place] % (Auto) 11.0 H, Eos % (Auto) 0.2, Baso % (Auto) 0.1, Absolute Neuts (auto) 5.5, Absolute Lymphs (auto) 1.58, Total Counted Not Reportable 03/16/18 05:35: Sodium 145, Potassium 3.5, Chloride 113 H, Carbon Dioxide 24.0, Anion Gap 8, BUN 4 L, Creatinine 0.64, Estim Creat Clear Calc 111.57, Est GFR (MDRD) Af Amer 134, Est GFR (MDRD) Non-Af 111, BUN/Creatinine Ratio 6.3 L, Glucose 92, Calcium 7.9 L, Total Bilirubin 0.30, AST 41 H, ALT 33, Alkaline Phosphatase 68, Total Protein 6.1 L, Albumin 3.0 L, Globulin 3.1, Albumin/Globulin Ratio 1.[address] 03/15/18 12:14 IMPRESSION: Normal unenhanced CT scan of the brain. Electronically Signed: Reid Wright MD at 13:13 EST Tel [phone], Service support , Cervical Spine CT 03/15/18 12:14 IMPRESSION: Normal unenhanced CT examination of the cervical spine. Electronically Signed: Reid Wright MD at 13:33 EST Tel [phone], Service support , Facial/Sinus 03/15/18 12:14 IMPRESSION: Normal unenhanced CT of the facial bones. Electronically Signed: Reid Wright MD at 13:32 EST Tel [phone], Service support , Brain MRI 03/15/18 15:52 IMPRESSION: Normal unenhanced and enhanced MRI of the brain. Electronically Signed: Aidan Hureta MD at 23:21 EST , Service support , Current Medications Acetaminophen (Tylenol) 650 mg PO Q6H PRN PRN PRN Reason: Non-cardiac pain (mod-severe) Last Admin: 03/16/18 10:22 Dose: 650 mg Al Hydroxide/Mg Hydroxide (Mylanta Ii) 30 ml PO Q6H PRN PRN PRN Reason: Gastric burning Amitriptyline HCl (Elavil) 100 mg PO TID [facility] Last Admin: 03/16/18 06:30 Dose: 100 mg Diphenoxylate HCl/Atropine (Lomotil) 1 tablet PO 4X/DAY PRN PRN Reason: Diarrhea Enoxaparin Sodium (Lovenox) 40 mg SC DAILY@1000 [facility] Last Admin: 03/16/18 09:01 Dose: 40 mg Ferrous Sulfate (Ferrous Sulfate) 325 mg PO DAILY@0800 [facility] Last Admin: 03/16/18 09:01 Dose: 325 mg Gabapentin (Neurontin) 800 mg PO 4X/DAYCM [facility] Last Admin: 03/16/18 09:01 Dose: 800 mg Hydralazine HCl (Apresoline Iv) 10 mg IV Q4H PRN PRN PRN Reason: SBP > 160 Sodium Chloride () 1,000 mls @ 125 mls/hr IV .Q8H [facility] Last Admin: 03/16/18 03:26 Dose: 125 mls/hr Levetiracetam 750 mg/ N/A 150 mls @ 600 mls/hr IV Q12 [facility] Last Admin: 03/16/18 10:23 Dose: 600 mls/hr Lorazepam (Ativan) 1 mg PO Q4H PRN PRN PRN Reason: Seizure Magnesium Hydroxide (Milk Of Magnesia) 30 ml PO DAILY PRN PRN Reason: Constipation Meloxicam (Mobic) 15 mg PO DAILY [facility] Last Admin: 03/16/18 09:01 Dose: 15 mg Ondansetron HCl (Zofran) 4 mg IV Q8H PRN PRN PRN Reason: NAUSEA/VOMITING Pantoprazole Sodium (Protonix) 20 mg PO DAILY [facility] Last Admin: 03/16/18 09:01 Dose: 20 mg Promethazine HCl (Phenergan) 12.5 mg IV Q6H PRN PRN PRN Reason: NAUSEA/VOMITING Sodium Chloride () 5 - 15 ml IV UD PRN PRN Reason: SALINE FLUSH Last Admin: 03/16/18 07:55 Dose: 10 ml Medical Necessity - Tobacco Use Smoking Status: Never smoker Tobacco Use: Non-smoker Assessment/Plan All Active Problems Seizure (Acute) Methamphetamine intoxication (Acute) Acute encephalopathy (Acute) Methamphetamine abuse (Acute) High anion gap metabolic acidosis (Acute) Drug overdose (Acute) Encephalopathy (Acute) Altered mental status (Acute) 1. Acute metabolic encephalopathy due to generalised tonic clonic seizure * non compliant with her seizure meds and also used methamphetamine * CT brain was negative for any acute intracranial pathology * neurology on board: received loading dose of Keppra in ED * to get MRI of brain * Keppra dose increased to 750mg bid * EEG ordered * seizure precautions * 2. POlysubstance abuse: uses methamphetamine. Counseled to quit. 3. ??Multiple sclerosis * per neuro notes, says she was diagnosed with MS in [place], but subsequent MRI and LP have been negative. * neuro on board; do not think she likely has MS * 4. Iron deficiency anemia: on home oral iron 5. Anxiety and depression: currently not on any meds. To follow up with a psychiatrist on outpatient basis. 6. GERD: on PPI DVT prophylaxis; lovenox Code Visit Inpatient E&M: 86417 Subs Hosp L3
--- NOTE | 2018-03-16 13:27 | CASEMGMT ---
AIDEE PRINCE assessment: Face to Face with patient for initial transition planning/care coordination assessment. AIDEE PRINCE introduced self and role at [facility], pt voices understanding and consents to assessment at this time. Pt is lying in bed in no distress at this time. Pt is A/Ox4 at this time and answers all questions appropriately at this time. Care providers, pharmacy, and demographics verified at this time. PCP: Francisca Specialists: Pt states currently has no specialists. Preferred [facility]acy: [facility] Insurance: [employer] Prescription Benefit: [employer] Living Will/HPOA: Pt states does not have LW/HPOA and declines info at this time. LNOK: Endy Hayden, son Living Arrangements: Pt states lives with sig other in 1 story apt and states no concerns at home at this time. Pt states is independent with ADL's. Transportation: Pt states drives self and states no transportation concerns at this time. DME/HHC: Pt states has no current DME and states no need for any at this time. Pt states no hx of HHC or SNF in the past. Pt states no concerns with going home at time of discharge. 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 Pt initially denies smoking, ETOH, and recreational drugs. This AIDEE PRINCE then states that when she came to triage, she said she hadn't used drugs in several days. Pt then admits that she does use meth but can't figure out when she last used. Abiola HOSKINS aware, voices understanding. Pt declines SW/resources for drug abuse at this time. Pt voices no further concerns/needs at this time. CM to follow for any further discharge planning/needs. Advised pt to ask for CM if any further questions/concerns/needs arise, voices understanding. Plan: [place] AIDEE PRINCE
--- NOTE | 2018-03-16 15:47 | EEG ---
- Electroencephalogram Date of service 03/16/2018 History EEG is being done in this 38 yr F to rule out seizures EEG Description: This is an 18 channel EEG with 10-20 lead placement system. Bipolar montages, Referential and Circumferential montages were reviewed. Photic stimulation and Hyperventilation were performed. The posterior dominant rhythm is >12 HZ faster frequency beta waves, synchronous, symmetric, reacting to eye opening and closing. Photo stimulation elicited normal driving response but no abnormal photoparoxysmal response, Hyperventilation did not elicit any abnormal photoparoxysmal response. Sleep was identified. There background shows beta wave frequency range with low voltage. There was no epileptiform discharges or electrographic seizures noted during this recording. EEG Interpretation This is a normal awake and asleep EEG but shows faster frequency waves which may seen secondary to medication use like benzodiazepines. Clinical correlation is advised. There is no epileptiform discharges or electrographic seizures noted during the record.
--- NOTE | 2018-03-16 17:51 | CPS ---
Pt. refused IS device training. Tried multiple times throughout day to start device training. Pt. told me that she doesn't want to use IS breathing exercise device.
[2018-03-17] MEDS: Acetaminophen 325 MG Tablet 650 MG PO ×2 (02:36→09:01)
[2018-03-17 03:00] VITALS: PULSE 88
[2018-03-17 03:06] LABS: HEPATITIS B SURFACE AG Negative (Negative); Hepatitis A AB, Total Negative (Negative); Hepatitis A IgM Antibody Negative (Negative); Hepatitis B Core AB IgM Negative (Negative); Hepatitis B Core Ab Total Negative (Negative)
[2018-03-17 03:15] VITALS: BP 116/75; PULSE 86; RESP 18; TEMP 36.9; O2SAT 98
[2018-03-17] MEDS: 0.9% Normal Saline 1,000 ML 125 ML IV (04:49)
[2018-03-17 06:32] LABS: Absolute Lymphocyte Count 1.53 X10^3/ul (0.83-4.51); Absolute Neutrophil Count 6.8 X10^3/uL (2.0-7.7); Basophil# 0.02 X10^3/uL; Basophil% 0.2 % (0-1); Eosinophil# 0.15 X10^3/uL; Eosinophils% 1.6 % (0-5); Hematocrit 33.5 % (37-47); Hemoglobin 10.7 g/dl (12.0-15.0); Lymphocyte # 1.53 X10^3/ul (4.0); Lymphocyte % 16.6 % (19-41); Mean Corp Hgb Conc 31.9 g/gl (32-36); Mean Corpuscular Hgb 32.1 pg (27.0-32.0); Mean Corpuscular Volume 100.6 fL (81-99); Mean Platelet Vol. 9.9 fl (6.2-12.0); Monocyte# 0.74 X10^3/uL; Neutrophil # 6.77 X10^3/uL (2.7-7.7); Neutrophil % 73.3 % (47-70); Platelet Count 320 K/mm3 (150-450); RBC Distribution Width CV 12.7 % (11.6-14.6); RBC Distribution Width SD 44.6 fl (35.1-43.9); Red Blood Count 3.33 M/mm3 (4.2-5.4); White Blood Count 9.2 K/mm3 (4.4-11.0)
[2018-03-17 06:37] LABS: POSITIVE COUNT NO; POSITIVE DIFFERENTIAL NO; POSITIVE MORPHOLOGY NO
[2018-03-17] MEDS: Amitriptyline 100 MG Tablet PO (06:37)
[2018-03-17 06:38] LABS: Anion Gap 7 (5-15); BUN 5 mg/dL (7-18); Calcium,Total 7.6 mg/dL (8.5-10.1); Chloride 114 mmol/L (98-107); Creatinine, Serum 0.56 mg/dL (0.55-1.02); EST Glomerular Filtration Rate 130 mL/min (>60); Est Glom Filt Rate - Afr Amer 157 mL/min (>60); Estimated Creatinine Clearance 127.51 ml/min; Glucose 111 mg/dL (74-106); Potassium 3.5 mmol/L (3.5-5.1); Sodium Level 145 mmol/L (136-145)
[2018-03-17 06:55] VITALS: PULSE 84
[2018-03-17 07:42] VITALS: O2SAT 97
[2018-03-17] MEDS: Pantoprazole Sodium 20 MG Tablet PO (09:00)
[2018-03-17] MEDS: Ferrous Sulfate 325 MG Tablet PO (09:00)
[2018-03-17] MEDS: Meloxicam 15 MG Tablet PO (09:00)
[2018-03-17] MEDS: Gabapentin 800 MG Tablet PO ×2 (09:00→12:06)
[2018-03-17] MEDS: Enoxaparin 40 MG/0.4 ML Syringe SC (09:01)
[2018-03-17 09:05] VITALS: BP 135/96; PULSE 86; RESP 16; TEMP 36.8; O2SAT 98
[2018-03-17] MEDS: Ketorolac 15 MG/ML Vial IV (10:25)
--- NOTE | 2018-03-17 10:50 | DCINST_ITS ---
- Discharge Diagnoses Current Active Problems: Current Active and Chronic Problems Seizure (Acute) Anxiety and depression (Chronic) You will use the following diet at home:: No restrictions Your food should be the consistency of: Regular Your liquids should be the consistency of: Regular/Thin Discharge Activity: May Not Drive - until seizures are well controlled Weight Bearing Status: Weight bearing as tolerated Call your doctor if you observe: Fainting spells, - - seizures Instructions: Epilepsy: How Seizures Affect the Body, Diagnosing Epilepsy Allergies/Adverse Reactions: Allergies naproxen [From Naprosyn] Allergy (Verified 03/15/18 11:23) Hives Medications to take at Discharge Amitriptyline HCl [Elavil] 100 mg PO TID 03/15/18 Diphenoxylate HCl/Atropine [Lomotil 2.5-0.025 mg Tablet] 1 each PO 4X/DAY PRN 03/15/18 Ferrous Sulfate 325 mg PO DAILY 03/15/18 Gabapentin 800 mg PO 4X/DAY 03/15/18 Meloxicam 15 mg PO DAILY 03/15/18 Omeprazole 20 mg PO DAILY 03/15/18 Ondansetron [Zofran Odt] 4 mg PO Q8H PRN PRN 03/15/18 levETIRAcetam tablet [Keppra tablet] 750 mg PO BID #60 tablet 03/17/18 The following prescriptions were given: levETIRAcetam tablet [Keppra tablet] 750 mg PO BID #60 tablet Primary Care Physician: Giancarlo Espinosa MD [Primary Care Provider] - Please follow up with your Primary Care Physician in: one week Test Results: Test results from this visit will be discussed in further detail at your follow- up appointment, if applicable. Please Follow Up With: Mariajose Connor MD When: 1-2 weeks Proposed Discharge Date: 03/17/18
[2018-03-17 11:06] VITALS: PULSE 80
--- NOTE | 2018-03-17 11:40 | CASEMGMT ---
Pt to f/u with neuro but per Dr. Connor's office they do not take pt's [employer] medicaid. According to [facility] website, [facility] and [facility] are in-network but call placed back to office by katt Riojas RN, and they state that they are only in-network for inpt referrals. List of other in-network providers provided to pt at this time. Lauren HOSKINS CM
--- NOTE | 2018-03-17 13:41 | PCM.DC.SUM ---
Discharge Date and Diagnosis - Problem List Patient Problems: Active and Suspected Problems Seizure (Acute) Date of Admission: 03/15/18 Date of Discharge: 03/17/18 - Primary Discharge Diagnosis Active and Suspected Problems Seizure (Acute) - Secondary Discharge Diagnosis Chronic Problems Anxiety and depression (Chronic) Transverse myelitis (Chronic) GERD (gastroesophageal reflux disease) (Chronic) BMI 33.0-33.9,adult (Chronic) Hospital Course and Treatment Imaging Results: Diagnostic Data Brain CT 03/15/18 12:14 IMPRESSION: Normal unenhanced CT scan of the brain. Electronically Signed: Reid Wright MD at 13:13 EST Tel [phone], Service support , Cervical Spine CT 03/15/18 12:14 IMPRESSION: Normal unenhanced CT examination of the cervical spine. Electronically Signed: Reid Wright MD at 13:33 EST Tel [phone], Service support , Facial/Sinus 03/15/18 12:14 IMPRESSION: Normal unenhanced CT of the facial bones. Electronically Signed: Reid Wright MD at 13:32 EST Tel [phone], Service support , Brain MRI 03/15/18 15:52 IMPRESSION: Normal unenhanced and enhanced MRI of the brain. Electronically Signed: Aidan Huerta MD at 23:21 EST , Service support , neurology Operations: None Procedures: Electroencephalogram Summary of Care Provided: The patient is a 38 year old F with past medical history of seizure disorder noncompliant with medication, anxiety and depression, polysubstance abuse and query previous diagnosis of multiple sclerosis but with normal lumbar puncture and normal prior MRI imaging. She was admitted with a complaint of generalized tonic-clonic seizure. She had been using methamphetamine. She had previously been seen earlier in the day in the ED as she had a seizure and was given a loading dose of IV Keppra. Subsequently came back later in the day after she had seizures again. She was admitted and managed for acute metabolic encephalopathy due to generalized seizure complicated by polysubstance abuse and also for breakthrough seizures due to noncompliance. Diagnosis of MRI was questionable because she said she had been diagnosed with MS in [place] many years ago but had MRI of the brain and C-spine and MRI of the thoracic spine done in April 2016 did not show any MS lesions. She also has a history of left-sided sensory loss. MRI done was negative and CAT scan done of the brain was also negative. EEG done was negative. Neurology was consulted. Patient's was given initial loading dose of Keppra and her dose of Keppra was increased from 500 mg twice daily to 750 mg patient remained stable and was discharged home on 03/17/2018. She is to follow-up with her primary care doctor and neurologist. Patient counseled strongly on need for compliance. She was discharged home on 03/17/2018. She is to follow-up with her primary care doctor and neurologist. She was also counseled about need to be compliant with his seizure medication. Patient seen and examined prior to discharge. She complained of some mild flank pain due to the fall from her seizure and wanted pain medications. She denied any fever, any chills, any cough or chest pain, any shortness of breath, abdominal pain, any diarrhea vomiting. Review of systems otherwise negative. Labs and vitals reviewed. Home medications reviewed and reconciled o/e; Vitals; Vital Signs Height 5 ft 6 in Weight: 169 lb Weight in Pounds 169.0 lbs Pulse Ox 98 Temperature 98.3 F Pulse Rate 80 Respiratory Rate 16 Blood Pressure 135/96 Blood Pressure Position Semi-Fowlers [] General: Alert, No apparent distress, AO x 3, HEENT: Atraumatic, PERRLA, EOMI, Normocephalic Oral: Moist Mucosa Neck: Supple, No JVD, Negative Carotid Bruits Lungs: Clear to auscultation, Normal air movement, No rhonchi, No wheeze, No rales Cardiovascular: Regular rate, Regular Rhythm, Normal S1, Normal S2, No murmurs Abdomen: Bowel Sounds Present, Soft, Non Tender, Non-Distended, No Hepato-splenomegaly Extremities: No clubbing, No cyanosis, No edema, Capillary Refill Less than 3 Seconds Skin: No rashes, No breakdown Musculoskeletal: No Tenderness to Palpation of Joints or Extremities Lymphatic: No Cervical, Supraclavicular, or Inguinal Adenopathy Neurological: Cranial nerves II-XII grossly intact, Neuro grossly intact, Motor Exam 5/5 strength throughout, Psych/Mental Status: alert and oriented x 3, appropriate Plan as detailed above. The neurologists in [place] are not in her insurance plan, and so she was given a list of neurologists within her insurance plan, and is to get a referral from her PCP to follow-up with one. Patient Problems: Active and Suspected Problems Seizure (Acute) - Physical Exam Vital Signs Temp Pulse Resp BP Pulse Ox 98.3 F 80 16 135/96 H 98 03/17/18 09:05 03/17/18 11:06 03/17/18 09:05 03/17/18 09:05 03/17/18 09:05 Oxygen Delivery Method Room Air Weight: 169 lb Body Mass Index (BMI) 27.2 Finger Stick Blood Glucose 62 Intake and Output for Last 24 Hours 03/15/18 03/16/18 03/17/18 23:59 23:59 23:59 Intake Total 1198 / 1198 2590 / 2590 3729 / 3729 Balance 1198 / 1198 2590 / 2590 3729 / 3729 Laboratory Tests Past 24 Hrs 03/17/18 03/17/18 05:45 05:45 WBC 9.2 RBC 3.33 L Hgb 10.7 L Hct 33.5 L MCV 100.6 H MCH 32.1 H MCHC 31.9 L RDW 12.7 RDW Differential 44.6 H Plt Count 320 MPV 9.9 Immature Gran % (Auto) 0.300 Neut % (Auto) 73.3 H Lymph % (Auto) 16.6 L [place] % (Auto) 8.0 Eos % (Auto) 1.6 Baso % (Auto) 0.2 Absolute Neuts (auto) 6.8 Absolute Lymphs (auto) 1.53 Total Counted Not Reportable Sodium 145 Potassium 3.5 Chloride 114 H Carbon Dioxide 24.0 Anion Gap 7 BUN 5 L Creatinine 0.56 Estim Creat Clear Calc 127.51 Est GFR (MDRD) Af Amer 157 Est GFR (MDRD) Non-Af 130 BUN/Creatinine Ratio 9.0 L Glucose 111 H Calcium 7.6 L Discharge Diet: Low fat/ Low Cholesterol Discharge Activity: July Not Drive - until seizures are well controlled Weight Bearing Status: Weight bearing as tolerated Call your doctor if you observe: Fainting spells, - - seizures Home Medications: Medications to take at Discharge Amitriptyline HCl [Elavil] 100 mg PO TID 03/15/18 Diphenoxylate HCl/Atropine [Lomotil 2.5-0.025 mg Tablet] 1 each PO 4X/DAY PRN 03/15/18 Ferrous Sulfate 325 mg PO DAILY 03/15/18 Gabapentin 800 mg PO 4X/DAY 03/15/18 Meloxicam 15 mg PO DAILY 03/15/18 Omeprazole 20 mg PO DAILY 03/15/18 Ondansetron [Zofran Odt] 4 mg PO Q8H PRN PRN 03/15/18 levETIRAcetam tablet [Keppra tablet] 750 mg PO BID #60 tablet 03/17/18 Following Prescrptions Were Given to Patient: levETIRAcetam tablet [Keppra tablet] 750 mg PO BID #60 tablet Primary Care Physician: Giancarlo Espinosa MD [Primary Care Provider] - Please follow up with your Primary Care Physician in: one week Please Follow Up With: Please obtain referral from Dr. Espinosa for Neurologist. When: see within 1-2 weeks Please Follow Up With: Giancarlo Espinosa MD Patient Instructions: Epilepsy: How Seizures Affect the Body, Diagnosing Epilepsy Disposition: Home Minutes spent on discharge:: 35 Patient Condition:: Stable Medical Necessity - Tobacco Use Smoking Status: Never smoker Tobacco Use: Non-smoker Meaningful Use Info Meaningful Use Diagnoses (Choose all that apply): None applicable Code Visit Inpatient E&M: 50712 Disch Hosp
--- NOTE | 2018-03-17 13:50 | DS.PCM_ITS ---
Discharge Date and Diagnosis - Problem List Patient Problems: Active and Suspected Problems Seizure (Acute) Date of Admission: 03/15/18 Date of Discharge: 03/17/18 - Primary Discharge Diagnosis Active and Suspected Problems Seizure (Acute) - Secondary Discharge Diagnosis Chronic Problems Anxiety and depression (Chronic) Transverse myelitis (Chronic) GERD (gastroesophageal reflux disease) (Chronic) BMI 33.0-33.9,adult (Chronic) Hospital Course and Treatment Imaging Results: Diagnostic Data Brain CT 03/15/18 12:14 IMPRESSION: Normal unenhanced CT scan of the brain. Electronically Signed: Reid Wright MD at 13:13 EST Tel [phone], Service support , Cervical Spine CT 03/15/18 12:14 IMPRESSION: Normal unenhanced CT examination of the cervical spine. Electronically Signed: Reid Wright MD at 13:33 EST Tel [phone], Service support , Facial/Sinus 03/15/18 12:14 IMPRESSION: Normal unenhanced CT of the facial bones. Electronically Signed: Reid Wright MD at 13:32 EST Tel [phone], Service support , Brain MRI 03/15/18 15:52 IMPRESSION: Normal unenhanced and enhanced MRI of the brain. Electronically Signed: Aidan Huerta MD at 23:21 EST , Service support , neurology Operations: None Procedures: Electroencephalogram Summary of Care Provided: The patient is a 38 year old F with past medical history of seizure disorder noncompliant with medication, anxiety and depression, polysubstance abuse and query previous diagnosis of multiple sclerosis but with normal lumbar puncture and normal prior MRI imaging. She was admitted with a complaint of generalized tonic-clonic seizure. She had been using methamphetamine. She had previously been seen earlier in the day in the ED as she had a seizure and was given a loading dose of IV Keppra. Subsequently came back later in the day after she had seizures again. She was admitted and managed for acute metabolic encephalopathy due to generalized seizure complicated by polysubstance abuse and also for breakthrough seizures due to noncompliance. Diagnosis of MRI was questionable because she said she had been diagnosed with MS in [place] many years ago but had MRI of the brain and C-spine and MRI of the thoracic spine done in April 2016 did not show any MS lesions. She also has a history of left-sided sensory loss. MRI done was negative and CAT scan done of the brain was also negative. EEG done was negative. Neurology was consulted. Patient's was given initial loading dose of Keppra and her dose of Keppra was increased from 500 mg twice daily to 750 mg patient remained stable and was discharged home on 03/17/2018. She is to follow-up with her primary care doctor and neurologist. Patient counseled strongly on need for compliance. She was discharged home on 03/17/2018. She is to follow-up with her primary care doctor and neurologist. She was also counseled about need to be compliant with his seizure medication. Patient seen and examined prior to discharge. She complained of some mild flank pain due to the fall from her seizure and wanted pain medications. She denied any fever, any chills, any cough or chest pain, any shortness of breath, abdominal pain, any diarrhea vomiting. Review of systems otherwise negative. Labs and vitals reviewed. Home medications reviewed and reconciled o/e; Vitals; Vital Signs Height 5 ft 6 in Weight: 169 lb Weight in Pounds 169.0 lbs Pulse Ox 98 Temperature 98.3 F Pulse Rate 80 Respiratory Rate 16 Blood Pressure 135/96 Blood Pressure Position Semi-Fowlers [] General: Alert, No apparent distress, AO x 3, HEENT: Atraumatic, PERRLA, EOMI, Normocephalic Oral: Moist Mucosa Neck: Supple, No JVD, Negative Carotid Bruits Lungs: Clear to auscultation, Normal air movement, No rhonchi, No wheeze, No rales Cardiovascular: Regular rate, Regular Rhythm, Normal S1, Normal S2, No murmurs Abdomen: Bowel Sounds Present, Soft, Non Tender, Non-Distended, No Hepato- splenomegaly Extremities: No clubbing, No cyanosis, No edema, Capillary Refill Less than 3 Seconds Skin: No rashes, No breakdown Musculoskeletal: No Tenderness to Palpation of Joints or Extremities Lymphatic: No Cervical, Supraclavicular, or Inguinal Adenopathy Neurological: Cranial nerves II-XII grossly intact, Neuro grossly intact, Motor Exam 5/5 strength throughout, Psych/Mental Status: alert and oriented x 3, appropriate Plan as detailed above. The neurologists in [place] are not in her insurance plan, and so she was given a list of neurologists within her insurance plan, and is to get a referral from her PCP to follow-up with one. Patient Problems: Active and Suspected Problems Seizure (Acute) - Physical Exam Vital Signs Temp Pulse Resp BP Pulse Ox 98.3 F 80 16 135/96 H 98 03/17/18 09:05 03/17/18 11:06 03/17/18 09:05 03/17/18 09:05 03/17/18 09:05 Oxygen Delivery Method Room Air Weight: 169 lb Body Mass Index (BMI) 27.2 Finger Stick Blood Glucose 62 Intake and Output for Last 24 Hours 03/15/18 03/16/18 03/17/18 23:59 23:59 23:59 Intake Total 1198 / 1198 2590 / 2590 3729 / 3729 Balance 1198 / 1198 2590 / 2590 3729 / 3729 Laboratory Tests Past 24 Hrs 03/17/18 03/17/18 05:45 05:45 WBC 9.2 RBC 3.33 L Hgb 10.7 L Hct 33.5 L MCV 100.6 H MCH 32.1 H MCHC 31.9 L RDW 12.7 RDW Differential 44.6 H Plt Count 320 MPV 9.9 Immature Gran % (Auto) 0.300 Neut % (Auto) 73.3 H Lymph % (Auto) 16.6 L [place] % (Auto) 8.0 Eos % (Auto) 1.6 Baso % (Auto) 0.2 Absolute Neuts (auto) 6.8 Absolute Lymphs (auto) 1.53 Total Counted Not Reportable Sodium 145 Potassium 3.5 Chloride 114 H Carbon Dioxide 24.0 Anion Gap 7 BUN 5 L Creatinine 0.56 Estim Creat Clear Calc 127.51 Est GFR (MDRD) Af Amer 157 Est GFR (MDRD) Non-Af 130 BUN/Creatinine Ratio 9.0 L Glucose 111 H Calcium 7.6 L Discharge Diet: Low fat/ Low Cholesterol Discharge Activity: July Not Drive - until seizures are well controlled Weight Bearing Status: Weight bearing as tolerated Call your doctor if you observe: Fainting spells, - - seizures Home Medications: Medications to take at Discharge Amitriptyline HCl [Elavil] 100 mg PO TID 03/15/18 Diphenoxylate HCl/Atropine [Lomotil 2.5-0.025 mg Tablet] 1 each PO 4X/DAY PRN 03/15/18 Ferrous Sulfate 325 mg PO DAILY 03/15/18 Gabapentin 800 mg PO 4X/DAY 03/15/18 Meloxicam 15 mg PO DAILY 03/15/18 Omeprazole 20 mg PO DAILY 03/15/18 Ondansetron [Zofran Odt] 4 mg PO Q8H PRN PRN 03/15/18 levETIRAcetam tablet [Keppra tablet] 750 mg PO BID #60 tablet 03/17/18 Following Prescrptions Were Given to Patient: levETIRAcetam tablet [Keppra tablet] 750 mg PO BID #60 tablet Primary Care Physician: Giancarlo Espinosa MD [Primary Care Provider] - Please follow up with your Primary Care Physician in: one week Please Follow Up With: Please obtain referral from Dr. Espinosa for Neurologist. When: see within 1-2 weeks Please Follow Up With: Giancarlo Espinosa MD Patient Instructions: Epilepsy: How Seizures Affect the Body, Diagnosing Epilepsy Disposition: Home Minutes spent on discharge:: 35 Patient Condition:: Stable Medical Necessity - Tobacco Use Smoking Status: Never smoker Tobacco Use: Non-smoker Meaningful Use Info Meaningful Use Diagnoses (Choose all that apply): None applicable Code Visit Inpatient E&M: 02510 Disch Hosp
[2018-03-17 16:33] LABS: Hep B Surface Antibodies Non Reactive (.)
[2018-03-17 16:38] LABS: Hepatitis C Ab >11.0 s/co ratio (0.0-0.9)
--- NOTE | 2018-03-21 15:37 | CASEMGMT ---
RN CM Discharge F/U Phone Call LACE: 9 Strata: 3 Discharge date: 03/17/18 Call date: 03/21/18 Call time: [phone] Attempted to reach pt without success at this time, message left with pt to call this RN CM back if/when able. S[place]en RN CM Admission dx: Seizure
== END 2018-03-17 12:32 | disposition home or self-care (01) | DRG 53 ==
LOC: ED 11:46 → PCU 15:16
PROVIDERS: Admitting Provider Family Medicine; Emergency Provider Emergency Medicine; Family Provider Family Medicine; PCP Family Medicine; Visit Provider Student in an Organized Health Care Education/Training Program
DX: G40.909 Epilepsy, unspecified, not intractable, without status epilepticus (principal); D50.9 Iron deficiency anemia, unspecified; K21.9 Gastro-esophageal reflux disease without esophagitis; F32.9 Major depressive disorder, single episode, unspecified; F41.9 Anxiety disorder, unspecified; Z91.14 Patient's other noncompliance with medication regimen; F15.10 Other stimulant abuse, uncomplicated
CPT/HCPCS: 36415; 70450; 70486; 70553; 72125; 80048; 80053; 80076; 80307; 80320; 81001; 81025; 83735; 84443; 85025; 86703; 86704; 86705; 86706; 86708; 86709; 86803; 87340; 96361; 96365; 96375; 99285; A9585; J7030; A4216; G0480

== ENCOUNTER 2018-03-20 09:17 | Emergency (ER) | payer MEDICAID, SELFPAY ==
[2018-03-15 15:29] VITALS: BMI 27.2
[2018-03-20 09:19] VITALS: BP 157/93; PULSE 128; RESP 22; TEMP 37.2; O2SAT 94; BMI 31.4
--- NOTE | 2018-03-20 09:24 | CT_ITS ---
STUDY: CT BRAIN WITHOUT CONTRAST REASON FOR EXAM: Female, 38 years old. Seizure. History of substance abuse. RADIATION DOSAGE (If Supplied By Facility): CTDIvol = ( 44.99 ) mGy, DLP = ( 796.11 ) mGycm TECHNIQUE: Transaxial CT imaging of the brain was performed without administration of intravenous contrast material. Individualized dose optimization techniques were used for this CT. COMPARISON: Comparison is made with prior study dated September 12, 2018. FINDINGS: Normal soft tissue structures. Normal calvarium. Normal size ventricles and extra-axial spaces for the patient's age. Normal white matter tracts of the cerebral hemispheres. Normal basal ganglia and thalami. Normal brainstem. Normal cerebellum. There is no intracranial hemorrhage. There are no findings of an acute ischemic infarction. Normal visualized paranasal sinuses. CT/Brain/Head without Contrast IMPRESSION: Normal unenhanced CT scan of the brain. Electronically Signed: Reid Wright MD at 10:55 EST Tel [phone], Service support ,
--- NOTE | 2018-03-20 09:24 | CT_ITS ---
STUDY: CT CERVICAL SPINE WITHOUT CONTRAST REASON FOR EXAM: Female, 38 years old. Seizures. History of substance abuse. RADIATION DOSAGE (If Supplied By Facility): CTDIvol = ( 26.28 ) mGy, DLP = ( 1020.41 ) mGycm TECHNIQUE: High resolution transaxial imaging was performed without contrast material. Sagittal and coronal images were reconstructed. Limited study due to patient motion artifact. Individualized dose optimization techniques were used for this CT. COMPARISON: None FINDINGS: Normal craniovertebral junction. Normal anterior atlantoaxial articulation. Normal odontoid process. There is straightening of the normal cervical lordosis. Normal vertebral bodies and posterior osseous elements. C2-3: Normal endplates. Normal disc height and morphology. Normal central canal and intervertebral neuroforamina. C3-4: Normal endplates. Normal disc height and morphology. Normal central canal and intervertebral neuroforamina. C4-5: Normal endplates. Normal disc height and morphology. Normal central canal and intervertebral neuroforamina. C5-6: Normal endplates. Normal disc height and morphology. Normal central canal and intervertebral neuroforamina. C6-7: Normal endplates. Normal disc height and morphology. Normal central canal and intervertebral neuroforamina. C7-T1: Normal endplates. Normal disc height and morphology. Normal central canal and intervertebral neuroforamina. Normal visualized soft tissue structures. CT/Spine Cervical without Contras IMPRESSION: Normal unenhanced CT examination of the cervical spine. Limited study due to patient motion artifact. Electronically Signed: Reid Wright MD at 11:15 EST Tel [phone], Service support ,
[2018-03-20] MEDS: LORazepam 2 MG/ML Syringe IV (09:42)
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
[2018-03-20 11:18] VITALS: PULSE 119; RESP 20; O2SAT 95
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
--- NOTE | 2018-03-20 11:32 | ED.DEP ---
ED Disposition - Plan for ED Patient: Chief Complaint: Substance Abuse Instructions: ED Head Injury Closed Referrals: Giancarlo Espinosa MD [Primary Care Provider] -
== END 2018-03-20 12:31 | disposition home or self-care (01) ==
PROVIDERS: Emergency Provider Emergency Medicine; Family Provider Family Medicine; PCP Family Medicine
DX: S00.83XA Contusion of other part of head, initial encounter (principal); S10.93XA Contusion of unspecified part of neck, initial encounter; F15.10 Other stimulant abuse, uncomplicated; R56.9 Unspecified convulsions; Z79.899 Other long term (current) drug therapy; Y04.2XXA Assault by strike against or bumped into by another person, initial encounter; Y93.89 Activity, other specified; Y92.89 Other specified places as the place of occurrence of the external cause; Y99.8 Other external cause status
CPT/HCPCS: 70450; 72125; 96374; 99285; A4216

== ENCOUNTER 2018-03-22 02:54 | Emergency (ER) | payer MEDICAID, SELFPAY ==
[2018-03-22 02:56] VITALS: BP 155/100; PULSE 110; RESP 24; TEMP 36.8; O2SAT 94; BMI 32.9
[2018-03-22 03:15] VITALS: BP 98/75; PULSE 106; RESP 24; O2SAT 96
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
--- NOTE | 2018-03-22 04:08 | ED.DEP ---
ED Disposition - Plan for ED Patient: Chief Complaint: Substance Abuse Instructions: ED Drug Abuse General Referrals: Giancarlo Espinosa MD [Primary Care Provider] -
[2018-03-22 04:18] VITALS: BP 112/77; PULSE 94; RESP 21; O2SAT 95
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
--- NOTE | 2018-03-22 05:45 | ED.RN ---
CALLED DAUGHTER, SHE IS STILL ON HER WAY, WALKING TO COME GET PT.
--- NOTE | 2018-03-22 05:58 | ED.RN ---
PAPER PANTS AND DOUBLE SOCKS GIVEN TO PATIENT.
== END 2018-03-22 05:59 | disposition home or self-care (01) ==
LOC: ED 03:34
PROVIDERS: Emergency Provider Emergency Medicine; Family Provider Family Medicine; PCP Family Medicine
DX: F15.10 Other stimulant abuse, uncomplicated (principal); R56.9 Unspecified convulsions; G35 Multiple sclerosis; Z79.899 Other long term (current) drug therapy
CPT/HCPCS: 99282

== ENCOUNTER 2018-04-02 09:15 | Emergency (ER) | payer MEDICAID, SELFPAY ==
[2018-04-02 09:15] VITALS: BP 113/68; PULSE 93; RESP 16; TEMP 36.6; O2SAT 99; BMI 32.9
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
[2018-04-02] MEDS: morphine 8 MG/ML Syringe SC (09:46)
[2018-04-02] MEDS: Lidocaine 5% Patch 1 PATCH TOPICAL (10:20)
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
--- OUTSIDE RECORDS SUMMARY | 2018-06-05 11:04 | XMS RPT_ITS ---
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 Espinosa MD [Primary Care Provider] - 1-2 Days if not improving Ruddy Seth MD [STAFF PHYSICIAN] - As soon as possible Additional Instructions: Take your Keppra as prescribed. Do NOT use meth. It increases your risk of seizures. What to do if you have Problems For any increased pain, shortness of breath, bleeding, nausea or vomiting, chest pain, or any unexpected problems, contact your Primary Care Provider. Call [facility] ([phone]) or report to the closest Emergency Room. Call 911 if necessary. 03/17/1802 <Electronically signed by Daniel Cabral MD> Date Daniel Cabral MD Cosigner Signature (If Indicated): Date CC: Ramon Espinosa MD CBC W/DIFF, AUTOMATED Collected: 03/17/2018 Status: F Source: [place] 5:45 AM [facility] [place] REPOSITORY TYPE CODE TESTS RESULT OUT OF RANGE REFERENCE UNITS LAB L100.1000 4.4-11.0 K/mm3 Normal WBC 9.2 LAB L100.1200 4.2-5.4 M/mm3 Low RBC 3.33 LAB L100.1300 12.0-15.0 g/dl Low HGB 10.7 LAB L100.1400 37-47 % Low HCT 33.5 LAB L100.1500 81-99 fL High MCV 100.6 LAB L100.1600 27.0-32.0 pg High MCH 32.1 LAB L100.1700 32-36 g/gl Low MCHC 31.9 LAB L100.1810 11.6-14.6 % Normal RDW CV 12.7 LAB L100.1820 35.1-43.9 fl High RDW SD 44.6 LAB L100.1900 150-450 K/mm3 Normal PLT 320 LAB L100.2000 6.2-12.0 fl Normal MPV 9.9 LAB L100.2100 47-70 % High NEUT% 73.3 LAB L100.2200 19-41 % Low LY% 16.6 LAB L100.2300 0-10 % Normal MONO% 8.0 LAB L100.2400 0-5 % Normal EO% 1.6 LAB L100.2500 0-1 % Normal BASO% 0.2 LAB L100.2550 0.0-0.9 % Normal IM GRAN % 0.300 Result Comment: IG% - Immature Granulocytes (promyelocytes, myelocytes and metamyelocytes) > 1% indicates that a LEFT SHIFT is Present. LAB L100.2620 2.0-7.7 X10 3/uL Normal Absolute Neut 6.8 LAB L100.2720 0.83-4.51 X10 3/ul Normal Absolute Lymph 1.53 Performed By: #### L100.0100 #### [facility] [address] [place], [address] BASIC METABOLIC Collected: 03/17/2018 Status: F Source: [place] [facility] ([facility]) 5:45 AM [facility] REPOSITORY TYPE CODE TESTS RESULT OUT OF RANGE REFERENCE UNITS LAB L501.0100 74-106 mg/dL High GLU 111 Result Comment: Fasting Glucose result from 100 to 125 mg/dL suggests IMPAIRED HOMEOSTASIS per A.D.A. criteria. Please note revised GLUCOSE reference range effective 2017. LAB L501.1000 7-18 mg/dL Low BUN 5 LAB L501.1100 0.55-1.02 mg/dL Normal CREAT,SERUM 0.56 Result Comment: The validity of the calculated GFR AND GFRAA in patients over 70 years has not been determined. Clinical correlation is essential. LAB L501.1110 >60 mL/min Normal EST GFR 130 Result Comment: Non- GFR Calc LAB L501.1115 >60 mL/min Normal EST GFR - AA 157 Result Comment: GFR Calc LAB L501.1255 ml/min Normal Estimated CRCL 127.51 LAB L501.1300 10-20 RATIO Low BUN/CRE 9.0 LAB L501.2200 8.5-10 mg/dL Low .1 CA 7.6 LAB L501.5300 136-14 mmol/L 5 NA Normal 145 LAB L501.5600 3.5-5. mmol/L 1 K Normal 3.5 LAB L501.5900 98-107 mmol/L High CL 114 LAB L501.6100 21.0-3 mmol/L 2.0 CO2 Normal 24.0 LAB L501.6200 5-15 GAP Normal 7 Performed By: #### L500.2500 #### [facility] [address] [place], [address] CBC W/DIFF, AUTOMATED Collected: 03/16/2018 Status: F Source: [place] 5:35 AM [facility] REPOSITORY TYPE CODE TESTS RESULT OUT OF RANGE REFERENCE UNITS LAB L100.1000 4.4-11.0 K/mm3 Normal WBC 8.0 LAB L100.1200 4.2-5.4 M/mm3 Low RBC 3.20 LAB L100.1300 12.0-15.0 g/dl Low HGB 10.4 LAB L100.1400 37-47 % Low HCT 31.8 LAB L100.1500 81-99 fL High MCV 99.4 LAB L100.1600 27.0-32.0 pg High MCH 32.5 LAB L100.1700 32-36 g/gl Normal MCHC 32.7 LAB L100.1810 11.6-14.6 % Normal RDW CV 12.5 LAB L100.1820 35.1-43.9 fl High RDW SD 44.0 LAB L100.1900 150-450 K/mm3 Normal PLT 292 LAB L100.2000 6.2-12.0 fl Normal MPV 10.0 LAB L100.2100 47-70 % Normal NEUT% 68.8 LAB L100.2200 19-41 % Normal LY% 19.7 LAB L100.2300 0-10 % High MONO% 11.0 LAB L100.2400 0-5 % Normal EO% 0.2 LAB L100.2500 0-1 % Normal BASO% 0.1 LAB L100.2550 0.0-0.9 % Normal IM GRAN % 0.200 Result Comment: IG% - Immature Granulocytes (promyelocytes, myelocytes and metamyelocytes) > 1% indicates that a LEFT SHIFT is Present. LAB L100.2620 2.0-7.7 X10 3/uL Normal Absolute Neut 5.5 LAB L100.2720 0.83-4.51 X10 3/ul Normal Absolute Lymph 1.58 Performed By: #### L100.0100 #### [facility] [address] [place], [place], [address] COMPREHENSIVE METABOLIC Collected: 03/16/2018 Status: F Source: [place] [facility]IL 5:35 AM [facility] REPOSITORY TYPE CODE TESTS RESULT OUT OF RANGE REFERENCE UNITS LAB L501.0100 74-106 mg/dL Normal GLU 92 Result Comment: Please note revised GLUCOSE reference range effective 2017. LAB L501.1000 7-18 mg/dL Low BUN 4 LAB L501.1100 0.55-1.02 mg/dL Normal CREAT,SERUM 0.64 Result Comment: The validity of the calculated GFR AND GFRAA in patients over 70 years has not been determined. Clinical correlation is essential. LAB L501.1110 >60 mL/min Normal EST GFR 111 Result Comment: Non- GFR Calc LAB L501.1115 >60 mL/min Normal EST GFR - AA 134 Result Comment: GFR Calc LAB L501.1255 ml/min Normal Estimated CRCL 111.57 LAB L501.1300 10-20 RATIO Low BUN/CRE 6.3 LAB L501.1500 6.4-8. g/dL Low 2 T PROT 6.1 LAB L501.1800 3.2-5. g/dL Low 0 ALB 3.0 LAB L501.1950 2.2-4. g/dL 2 GLOB Normal 3.1 LAB L501.2000 0.9-2. RATIO 4 A/G Normal 1.0 LAB L501.2200 8.5-10 mg/dL Low .1 CA 7.9 LAB L501.4100 15-37 U/L High AST 41 LAB L501.4305 45-117 U/L ALK P Normal 68 LAB L501.4405 13-56 U/L ALT Normal 33 LAB L501.4600 0.20-1 mg/dL .00 T BILI Normal 0.30 LAB L501.5300 136-14 mmol/L 5 NA Normal 145 LAB L501.5600 3.5-5. mmol/L 1 K Normal 3.5 LAB L501.5900 98-107 mmol/L High CL 113 LAB L501.6100 21.0-3 mmol/L 2.0 CO2 Normal 24.0 LAB L501.6200 5-15 GAP Normal 8 Performed By: #### L500.4050 #### [facility] [address] [place], [address] EMERGENCY DEPARTMENT Observed: 03/15/2018 Status: F Source: [place] SUMMARY 4:02 PM [facility] REPOSITORY [facility] Medical Records Department [address] [place] [address] Emergency Department Summary 03/15/18 1451 MR#: [id number] Acct: [id number] Name: YARED STALLWORTH Rep #: [id number] : 1980 38 From: Sonu Gupta MD PCP: Ramon Espinosa MD Status: ADM IN - ER Visit Summary Date of Service: 03/15/18 Chief Complaint: Seizure History of Present Illness: The patient is a 38 F with suspected seizure activity. She was seen last night for the same. The patient was recently released from group home and has been using methamphetamines. She had a seizure in the emergency department and was loaded with Keppra. Her workup was unremarkable and she was discharged. Shortly after she got home, she fell down half a flight of stairs. She did hit her face. She had shaking activity. Apparently the paramedics saw a syringe on scene. Patient is currently denying any complaints. She denies falling or trauma. Physical Examination: Afebrile and vital signs unremarkable except for a respiratory rate of 27. The patient is alert and oriented. She does have some bruises to her face, but these are old according the patient. Neck is nontender. Heart regular. Lungs clear. Abdomen soft. Extremities atraumatic. No focal or lateralizing neurologic abnormalities. Test Results: I reviewed the patient's labs from earlier this morning. I added on a urine drug screen which was positive for amphetamines. Alcohol was negative. Urinalysis unremarkable. test negative. CT of the brain, C-spine, and face performed. No acute abnormalities noted. Emergency Department Course and Treatment: Patient was monitored and had seizure precautions. She already received Keppra this morning. I spoke with Dr. Connor. He advised that if the patient recovers in the ED she can be discharged on Keppra 750 twice a day. Her workup did not reveal any acute trauma. Patient was monitored and had no further seizure activity. She was requesting to go home. I spoke with her daughter on the phone. Her daughter came to pick her up, and then the patient had shaking activity. I held her hand above her head, and she moved her arm away from her head. She was speaking in gibberish. I am not convinced this is a seizure, and rather I think it might be part of methamphetamine withdrawal. Patient has continued confusion and bizarre activity. I spoke with the hospitalist who will admit for further care. Treatment Plan: As above Disposition: Admission Impression: 1. Methamphetamine withdrawal 2. History of seizures This note was generated with RE2ation software. It may contain incorrect words, spelling, and punctuation that were not noted in review of the chart prior to signing ED Disposition - Plan for ED Patient: Chief Complaint: Seizure Referrals: Ramon Espinosa MD [Primary Care Provider] - What to do if you have Problems For any increased pain, shortness of breath, bleeding, nausea or vomiting, chest pain, or any unexpected problems, contact your Primary Care Provider. Call [facility] ([phone]) or report to the closest Emergency Room. Call 911 if necessary. 03/15/18 1602 <Electronically signed by Sonu Gupta MD> Date Sonu Gupta MD Cosigner Signature (If Indicated): Date CC: Ramon Espinosa MD BRAIN W/WO CONTRAST Observed: 03/15/2018 Status: F Source: [place] 3:53 PM [facility] REPOSITORY [facility] Imaging Services [facility] [place] [address] Brain W/WO Contrast MR#: [id number] Acct: [id number] Name: YARED STALLWORTH Rep #: [id number] : 1980 F 38 From: Aidan Huerta MD PCP: Ramon Espinosa MD Status: ADM IN Study: Brain W/WO Contrast Date of Exam: 03/15/18 Exam# [id number] Ordering Dr: Jessica Oglesby STUDY: MRI BRAIN WITH AND WITHOUT CONTRAST REASON FOR EXAM: Female, 38 years old. Confusion, new seizure and drug abuse TECHNIQUE: Standardized multiplanar fat and water weighted pulse sequences were obtained. 7 ml of Gadavist contrast material was administered intravenously for the contrast portion of the examination. COMPARISON: CT brain March 15, 2018 FINDINGS: There is mild cerebral atrophy with widening of the extra- axial spaces and ventricular dilatation. Normal white matter tracts of the supratentorial brain. There is no evidence for recent intracranial ischemia or other cause of cytotoxic edema on diffusion weighted imaging (DWI). Normal bilateral basal ganglia. Normal thalami. There is no extra-axial fluid accumulation. Normal flow voids within the major intracranial circulation suggesting patency by spin echo criteria. Normal venous enhancement. There is no enhancing intra-axial or extra-axial abnormality. Normal sella turcica, pituitary gland, infundibular stalk, optic chiasm and hypothalamus. Normal tectal plate and pineal gland. Normal midbrain, dai and medulla. Normal cerebellum. Normal basal cisterns. Normal bilateral temporal bones. Normal bilateral internal auditory canals. No demonstrated orbital abnormality, within the constraints of a routine brain study. Normal visualized paranasal sinuses. Normal calvarium and skull base. Normal visualized soft tissue structures. Normal visualized upper cervical spine. MRI/Brain W/WO Contrast IMPRESSION: Normal unenhanced and enhanced MRI of the brain. Electronically Signed: Aidan Huerta MD at 23:21 EST , Service support , CC: Jessica Oglesby; Ramon Espinosa MD Upper Cutter Out: Signed HISTORY AND PHYSICAL Observed: 03/15/2018 Status: F Source: [place] [facility] 3:01 PM [facility] REPOSITORY [facility] Medical Records Department [address] [place] [address] History and Physical 03/15/18 1414 MR#: [id number] Acct: [id number] Name: YARED STALLWORTH Rep #: [id number] : 1980 38 From: Jessica Oglesby PCP: Francisca COFFMAN,Ramon Status: REG ER Y Location: ED Problem List (1) Acute encephalopathy Status: Acute (2) Seizure Status: Acute (3) Methamphetamine intoxication Status: Acute (4) Anxiety and depression Status: Chronic (5) GERD (gastroesophageal reflux disease) Status: Chronic Qualifiers: Esophagitis presence: esophagitis presence not specified Qualified Code(s): K21.9 - Gastro-esophageal reflux disease without esophagitis History of Present Illness Date of Admission: 03/15/18 Chief Complaint: Seizure activity The patient is a 38 y/o F w/ PMHx: Seizure disorder, Anxiety and Depression, Polysubstance Abuse, Chronic L Sided sensory loss, ? Prior MS diagnosis but normal LP and prior MRI imaging who presents to the [facility] ED on 03/15/17 with history of onset generalized TC seizure activity early in the AM on day of presentation w/ initial ED evaluation at that time noted to be postictal with keppra 1 gm IV loadings with resolution of symptoms and discharge at that time who now re-presents to the ED with again breakthrough seizure activity without any tongue biting, loss or bowel or bladder witnessed by her daughter with fall while she was walking up the stairs secondary to onset seizures while walking up the stairs. Per history she had been compliant with her Keppra but has been using methamphetamine again since getting out of group home the day prior. She notes once more alert that she likely has not taken her seizure medications for 3-4 days. Work-up in the ED included T 98.9, heart rate 103, BP 110/84, respiratory rate 16, 96% on room air, urinalysis with 15 protein, 5 ketones, 10 occult blood, nitrite positive, leukocyte esterase 25, bacteria 1+, no WBCs noted however, urine drug screen positive for amphetamines, unremarkable alcohol level, CBC from earlier in the day with WBC 7.7, hemoglobin 13, platelet 302 without shift, BMP from earlier in the day with sodium 144, potassium 3.4, chloride 107, carbon dioxide 23, BUN/Cr 7/0.99, glucose 122, the brain unremarkable, CT cervical spine unremarkable, CT facial and sinus unremarkable. ED patient administered IV Ativan. EMS found syringe on scene. Neurology evaluated patient in the ED and recommended admission, MRI, EEG and increase of her keppra regimen. Past Medical History Past Medical History (Chronic Problems): Chronic Problems Anxiety and depression (Chronic) Transverse myelitis (Chronic) GERD (gastroesophageal reflux disease) (Chronic) BMI 33.0-33.9,adult (Chronic) Allergies naproxen [From Naprosyn] Allergy (Verified 03/15/18 11:23) Hives Home Medications: Ambulatory Orders Medication Instructions Recorded Levetiracetam [Keppra] 500 mg PO BID 11/17/17 Surgical History: appendectomy, - - Fallopian tubes tied Psychiatric History: No pertinent psych hx SHIFT MANAGER History: No pertinent SHIFT MANAGER history Lives: Friends Smoking Status: Never smoker Tobacco Use: Non-smoker Alcohol: None Drugs: - - IV methamphetamine usage. - *Family History Maternal History Items: - - Patient denies any marked maternal or paternal family history including heart disease, diabetes, cancer. Paternal History Items: - - Patient denies any marked maternal or paternal family history including heart disease, diabetes, cancer. Review of Systems Constitutional: Reports: Malaise, Weakness, Fatigue. Denies: Chills, Fever, Weight Change HEENT: Reports: Head Aches. Denies: Sinus Congestion, Sinus Drainage Cardiovascular: Denies: Chest Pain, Palpitations Respiratory: Denies: Cough, Shortness of breath at rest, Sputum production Gastrointestinal: Denies: Abdominal Pain, Nausea, Vomiting Genitourinary: Reports: Incontinence. Denies: Dysuria Musculoskeletal: Denies: Joint Pain, Joint Tenderness Skin: Denies: Rash, Wounds Neurological: Reports: Confusion, Headaches, Numbness, Tingling, Seizures. Denies: Focal weakness Psychiatric: Reports: Anxiety, Depression. Denies: Homicidal Ideations, Suicidal Ideations Hematologic/ Lymphatic: Reports: Anemia. Denies: Easy Bruising, Easy Bleeding VTE Information - Inpt Only VTE Present on Admission: No VTE Mechan Device Prophylaxis: SCD's VTE Pharm Prophylaxis ordered?: Yes Patient Problems: Active and Suspected Problems Seizure (Acute) Subjective: Laying in the ED bed, more alert, admits now that she is not taking her antiepileptics for at least 3-4 days. Objective: Physical Examination: General: awake, alert, oriented x [address] being hospital, year and month as recently extremely postictal, markedly improving, cooperative, seated upright in the ED bed in no apparent distress. Skin: normal color, turgor, no icterus, cyanosis except notable diffuse very staged ecchymoses and injection sites. HEENT: AT/NC, EOMI, PERRLA, dry MM, no carotid bruits or JVD noted. Lungs: CTA bilaterally, moderate effort, mild decrease BL bases, no rales, ronchi or wheezing. Heart: Regular rate and rhythm; no gallop, rub audible. Abdomen: soft, NTTP, ND, normal BS, no HSM. Extremities: no cyanosis, clubbing, or edema, see skin. Neurological: patient awake, alert, oriented x 3 noted above; cognitive function really improving, appears baseline intact now as previously was postictal; pupils equally reactive to light and accomodation; cranial nerves II-XII grossly normal, moving all 4 extremities, no focal deficits, strength mildly to moderately globally decreased secondary to acute presentation. Psychiatric: affect appears fatigued, mildly anxious, scratching and moving about constantly in the bed, no acute evidence of depressive feelings. - Physical Exam Vital Signs Temp Pulse Resp BP Pulse Ox 98.9 F 103 H 16 110/84 H 96 03/15/18 11:24 03/15/18 12:55 03/15/18 12:55 03/15/18 12:55 03/15/18 12:55 Oxygen Delivery Method Room Air Weight: 140 lb Body Mass Index (BMI) 21.9 Finger Stick Blood Glucose 62 Laboratory Tests Past 24 Hrs Urine Color Yellow Urine Clarity Sl. Cloudy Urine pH 6.0 Ur Specific [place]mond 1.015 Urine Color Assessment/Plan All Active Problems Seizure (Acute) Methamphetamine intoxication (Acute) Acute encephalopathy (Acute) Methamphetamine abuse (Acute) High anion gap metabolic acidosis (Acute) Drug overdose (Acute) Encephalopathy (Acute) Altered mental status (Acute) The patient is a 38 y/o F w/ PMHx: Seizure disorder, Anxiety and Depression, Polysubstance Abuse, Chronic L Sided sensory loss, ? Prior MS diagnosis but normal LP and prior MRI imaging who presents to the [facility] ED on 03/15/17 with history of onset generalized TC seizure activity early in the AM on day of presentation w/ initial ED evaluation at that time noted to be postictal with keppra 1 gm IV loadings with resolution of symptoms and discharge at that time who now re-presents to the ED with again breakthrough seizure activity without any tongue biting, loss or bowel or bladder witnessed by her daughter with fall while she was walking up the stairs secondary to onset seizures while walking up the stairs. (1) Mechanical Fall secondary to Acute Encephalopathy (Toxic, metabolic) secondary to Tonic Clonic Generalized Seizure Activity secondary to Non-compliance complicated by Polysubstance abuse: Will admit to PCU, maintain on telemetry, maintain on seizure precautions, allow diet as continuing to improve, obtain MRI brain with and without contrast, increase keppra to 750 mg BID, PRN IV ativan, recent earlier in AM CBC not marked and not marked BMP, will obtain liver profile, repeat labs in AM, CM/SW consultation to assist w/ substance abuse, encourage outpatient psychiatric evaluation and care. We will continue gabapentin and Elavil per neurology recommendation. Neurology consulted and following. (2) Polysubstance abuse: Encourage cessation and clean status, will obtain HIV and hepatitis panel given IV drug abuse, case management and social work consultation for substance abuse planning for discharge. Given recently out of group home this likely violates her parole although she is unclear on recent incarceration. (3) Iron deficiency anemia: Continue home iron supplementation. (4) Anxiety and Depression: Will benefit strongly from outpatient psychiatric evaluation and management. Management and social work consulted for discharge planning. (5) GERD: PPI. (6) DVT Prophylaxis: SCDs, lovenox. Code Visit Inpatient E AND M: [id number] Init Hosp L3 03/15/18 1501 <Electronically signed by Jessica Oglesby > Date Jessica Oglesby Cosigner Signature: Date (if applicable) CC: Jessica Oglesby; Ramon Espinosa MD Signed BRAIN/HEAD WITHOUT Observed: 03/15/2018 Status: F Source: [place] [facility] Imaging Services [address] [place] [address] Brain/Head without Contrast MR#: [id number] Acct: [id number] Name: YARED STALLWORTH Rep #: [id number] : 1980 F 38 From: Reid Wright MD PCP: Ramon Espinosa MD Status: REG ER Study: Brain/Head without Contrast Date of Exam: 03/15/18 Exam# [id number] Ordering Dr: Sonu Gupta MD STUDY: CT BRAIN WITHOUT CONTRAST REASON FOR EXAM: Female, 38 years old. Overdose. Seizures. RADIATION DOSAGE (If Supplied By Facility): CTDIvol = ( 51.64 ) mGy, DLP = ( 4342.20 ) mGycm TECHNIQUE: Transaxial CT imaging of the brain was performed without administration of intravenous contrast material. Individualized dose optimization techniques were used for this CT. COMPARISON: Comparison is made with prior study dated September 12, 2018 at 7:49 AM. FINDINGS: Normal soft tissue structures. Normal calvarium. Normal size ventricles and extra-axial spaces for the patient's age. Normal white matter tracts of the cerebral hemispheres. Normal basal ganglia and thalami. Normal brainstem. Normal cerebellum. There is no intracranial hemorrhage. There are no findings of an acute ischemic infarction. Normal visualized paranasal sinuses. CT/Brain/Head without Contrast IMPRESSION: Normal unenhanced CT scan of the brain. Electronically Signed: Reid Wright MD at 13:13 EST Tel [phone], Service support , CC: Sonu Gupta MD; Ramon Espinosa MD Upper Cutter Out: Signed SINUS/FACIAL BONE Observed: 03/15/2018 Status: F Source: [place] 12:15 PM [facility] [facility] REPOSITORY [facility] Imaging Services [address] [place] [address] Sinus/Facial Bone MR#: [id number] Acct: [id number] Name: YARED STALLWORTH Rep #: [id number] : 1980 F 38 From: Reid Wright MD PCP: Ramon Espinosa MD Status: REG ER Study: Sinus/Facial Bone Date of Exam: 03/15/18 Exam# [id number] Ordering Dr: Sonu Gupta MD STUDY: CT FACIAL BONES WITHOUT CONTRAST REASON FOR EXAM: Female, 38 years old. Overdose. Seizure activity. RADIATION DOSAGE (If Supplied By Facility): CTDIvol = ( 51.64 ) mGy, DLP = ( 4342.20 ) mGycm TECHNIQUE: The patient was scanned in a multi detector CT scanner. Sagittal and coronal images were reconstructed. Individualized dose optimization techniques were used for this CT. COMPARISON: None. FINDINGS: Normal soft tissue structures. Normal orbital freire and orbital contents. Normal nasal bones and anterior nasal spine. Nasal septal deviation towards the right side of the midline. Normal facial bones. There is no demonstrated fracture. Normal visualized paranasal sinuses. CT/Sinus/Facial Bone IMPRESSION: Normal unenhanced CT of the facial bones. Electronically Signed: Reid Wright MD at 13:32 EST Tel [phone], Service support , CC: Sonu Gupta MD; Ramon Espinosa MD Upper Cutter Out: Signed SPINE CERVICAL Observed: 03/15/2018 Status: F Source: [place] WITHOUT CONTRAS 12:15 PM [facility] REPOSITORY [facility] Imaging Services [address] [place] [address] Spine Cervical without Contras MR#: [id number] Acct: [id number] Name: YARED STALLWORTH Rep #: [id number] : 1980 F 38 From: Reid Wright MD PCP: Ramon Espinosa MD Status: REG ER Study: Spine Cervical without Contras Date of Exam: 03/15/18 Exam# [id number] Ordering Dr: Sonu Gupta MD STUDY: CT CERVICAL SPINE WITHOUT CONTRAST REASON FOR EXAM: Female, 38 years old. Overdose. Seizures. RADIATION DOSAGE (If Supplied By Facility): CTDIvol = ( 51.64 ) mGy, DLP = ( 4342.20 ) mGycm TECHNIQUE: High resolution transaxial imaging was performed without contrast material. Sagittal and coronal images were reconstructed. Individualized dose optimization techniques were used for this CT. COMPARISON: Comparison is made with prior study dated May 21, 2016. FINDINGS: Normal craniovertebral junction. Normal anterior atlantoaxial articulation. Normal odontoid process. There is straightening of the normal cervical lordosis. Normal vertebral bodies and posterior osseous elements. C2-3: Normal endplates. Normal disc height and morphology. Normal central canal and intervertebral neuroforamina. C3-4: Normal endplates. Normal disc height and morphology. Normal central canal and intervertebral neuroforamina. C4-5: Normal endplates. Normal disc height and morphology. Normal central canal and intervertebral neuroforamina. C5-6: Normal endplates. Normal disc height and morphology. Normal central canal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 01/12/2018 Status: F Source: [place] PROFILE (BMP) 12:43 AM [facility] [place] REPOSITORY TYPE CODE TESTS RESULT OUT OF RANGE REFERENCE UNITS LAB L501.0100 74-106 mg/dL Normal GLU 92 Result Comment: Please note revised GLUCOSE reference range effective 2017. LAB L501.1000 7-18 mg/dL Normal BUN 13 LAB L501.1100 0.55-1.02 mg/dL Normal CREAT,SERUM 0.85 Result Comment: The validity of the calculated GFR AND GFRAA in patients over 70 years has not been determined. Clinical correlation is essential. LAB L501.1110 >60 mL/min Normal EST GFR 80 Result Comment: Non- GFR Calc LAB L501.1115 >60 mL/min Normal EST GFR - AA 96 Result Comment: GFR Calc LAB L501.1255 ml/min Normal Estimated CRCL 71.67 LAB L501.1300 10-20 RATIO Normal BUN/CRE 15.3 LAB L501.2200 8.5-10 mg/dL Normal .1 CA 8.5 LAB L501.5300 136-14 mmol/L Normal 5 NA 139 LAB L501.5600 3.5-5. mmol/L Normal 1 K 4.1 LAB L501.5900 98-107 mmol/L Normal CL 106 LAB L501.6100 21.0-3 mmol/L Normal 2.0 CO2 24.0 LAB L501.6200 5-15 Normal GAP 9 Performed By: #### L500.2500, L501.3620 #### [facility] [address] [place], [address] CPK TOTAL, CREATINE Collected: 01/12/2018 Status: F Source: [place] KINASE 12:43 AM [facility] [place] REPOSITORY TYPE CODE TESTS RESULT OUT OF RANGE REFERENCE UNITS LAB L501.3620 26-192 U/L Low CPK TOTAL 23 Performed By: #### L500.2500, L501.3620 #### [facility] [address] [facility] [place], [address] BLOOD GASES BY CPS Collected: 01/12/2018 Status: F Source: [place] 12:19 AM [facility] [place] REPOSITORY TYPE CODE TESTS RESULT OUT OF RANGE REFERENCE UNITS LAB L9000.9990 Normal BLD GAS TYPE ART LAB L9001.1000 Normal SITE L Radial LAB L9001.1010 Normal MARY TEST POS LAB L9001.1050 O2 Normal Delivery Dev Room Air LAB L9001.1104 Normal Results To ED MD LAB L9001.1105 Normal Time Given 5 LAB L9001.1110 7.35-7.45 pH Normal - I-STAT 7.36 LAB L9001.1210 35-45 mmHg Normal pCO2 - ISTAT 41.2 LAB L9001.1310 75-100 mmHG Normal PO2 I-STAT 93 LAB L9001.2300 22-26 mmol/L Normal HCO3 ISTAT 23.2 LAB L9001.2400 -2 to +2 mmol/L BE Normal ISTAT -2 LAB L9001.2415 mmol/L Normal TOTAL CO2 24 ISTAT LAB L9001.2425 95-99 % Normal SO2 ISTAT 97 Performed By: #### L9000.0800 #### [facility] Point of Care [address] [place] [address] LACTIC ACID Collected: 01/12/2018 Status: F Source: [place] 12:15 AM [facility] [place] REPOSITORY Order Comment: Yes/No query for Sepsis Lactate Rule Y TYPE CODE TESTS RESULT OUT OF RANGE REFERENCE UNITS LAB L503.6005 0.4-2.0 mmol/L Normal LACTIC ACID 1.5 Performed By: #### L503.6005 #### [facility] [address] [place], [address] Observed: 01/11/2018 Status: F Source: [place] CULTURE, URINE 11:52 PM [facility] [place] REPOSITORY Urine Culture ORGANISM 1: Presumptive E. coli [place] Count >100,000 Presumptive E. coli: REACTION Amoxacillin/Clavulanic Acid $ <=2 S Ampicillin $ <=2 S Ampicillin/Sulbactam $ <=2 S Cefazolin $ <=4 S Cefepime $ <=1 S Ceftriaxone $ <=1 S Ciprofloxacin $ <=0.25 S ESBL - Ertapenim $$$ <=0.5 S Gentamicin $ <=1 S Imipenem *NF <=0.25 S Levofloxacin $ <=0.12 S Nitrofurantoin $ <=16 S Piperacillin/Tazobactam $$ <=4 S Tobramycin $ <=1 S Trimethoprim/Sulfametho $ <=20 S (NF) indicates non-formulary drug at [facility]. Approval by Infectious Disease Specialist required before non-formulary drugs may be ordered and/or dispensed. Performed By: #### M100.0650 #### [facility] [address] [place], [place], [address] BEDSIDE GLUCOSE Collected: 01/11/2018 Status: F Source: [place] 11:25 PM [facility] [place] REPOSITORY TYPE CODE TESTS RESULT OUT OF REFERENCE UNITS RANGE LAB L501.080 70-110 mg/dL Low BEDSIDE GLU 62 Result Comment: MANAGEMENT OF PATIENT CARE PER NURSING PROTOCOL Performed By: #### L501.080 #### [facility] Point of Care [address] [place] [address] URINE DRUG SCREEN Collected: 01/11/2018 Status: F Source: [place] (VISTA) 10:50 PM [facility] [place] REPOSITORY TYPE CODE TESTS RESULT OUT OF RANGE REFERENCE UNITS LAB L505.0075 TO BE Normal CONFIRMED Result Comment: CONFIRMATORY TESTING FOR ALL POSITIVE URINE DRUG SCREEN RESULTS WILL ONLY BE SENT OUT UPON PHYSICIAN ORDER. VISTA Urine Drug Screen methods provide only preliminary analytical test results. A more specific alternate chemical method must be used in order to obtain a confirmed analytical result. Gas chromatography/mass spectrometery (GC/MS) is the preferred confirmatory method. Clinical consideration and professional judgement should be applied to any drug of abuse test result, particularly when preliminary positive results are used. URINE TCA TESTING MUST BE ORDERED SEPARATELY. USE TEST MNEMONIC: [facility] LAB L505.5005 VISTA UDS PH 6 Normal LAB L505.5015 <1000 High ng/mL AMPHETAMINES POSITIVE LAB L505.5025 < 200 ng/mL BARBITIURATES Normal NEGATIVE LAB L505.5035 < 200 ng/mL BENZODIAZIPINE Normal NEGATIVE LAB L505.5045 < 300 ng/mL COCAINE Normal NEGATIVE LAB L505.5055 < 500 ng/mL ECSTACY Normal NEGATIVE LAB L505.5065 < 300 ng/mL METHADONE Normal NEGATIVE LAB L505.5075 < 300 ng/mL OPIATES Normal NEGATIVE LAB L505.5085 < 25 ng/mL PCP Normal NEGATIVE LAB L505.5095 < 50 ng/mL THC Normal NEGATIVE Performed By: #### L505.5000 #### [facility] [place], [address] CBC W/DIFF, AUTOMATED Collected: 01/11/2018 Status: F Source: [place] 10:30 PM [facility] [place] REPOSITORY TYPE CODE TESTS RESULT OUT OF RANGE REFERENCE UNITS LAB L100.1000 4.4-11.0 K/mm3 Normal WBC 9.2 LAB L100.1200 4.2-5.4 M/mm3 Normal RBC 4.54 LAB L100.1300 12.0-15.0 g/dl High HGB 15.1 LAB L100.1400 37-47 % Normal HCT 44.1 LAB L100.1500 81-99 fL Normal MCV 97.1 LAB L100.1600 27.0-32.0 pg High MCH 33.3 LAB L100.1700 32-36 g/gl Normal MCHC 34.2 LAB L100.1810 11.6-14.6 % Normal RDW CV 12.9 LAB L100.1820 35.1-43.9 fl High RDW SD 45.3 LAB L100.1900 150-450 K/mm3 Normal PLT 343 LAB L100.2000 6.2-12.0 fl Normal MPV 9.5 LAB L100.2100 47-70 % Normal NEUT% 54.7 LAB L100.2200 19-41 % Normal LY% 30.4 LAB L100.2300 0-10 % High MONO% 13.4 LAB L100.2400 0-5 % Normal EO% 0.9 LAB L100.2500 0-1 % Normal BASO% 0.2 LAB L100.2550 0.0-0.9 % Normal IM GRAN % 0.400 Result Comment: IG% - Immature Granulocytes (promyelocytes, myelocytes and metamyelocytes) > 1% indicates that a LEFT SHIFT is Present. LAB L100.2620 2.0-7.7 X10 3/uL Normal Absolute Neut 5.0 LAB L100.2720 0.83-4.51 X10 3/ul Normal Absolute Lymph 2.80 Performed By: #### L100.0100 #### [facility] [address] [place], [address] COMPREHENSIVE METABOLIC Collected: 01/11/2018 Status: F [facility] [place] REPOSITORY TYPE CODE TESTS RESULT OUT OF RANGE REFERENCE UNITS LAB L501.0100 74-106 mg/dL Low alert GLU 38 Result Comment: Critical Result(s) Called at: 23:14:35 01/11/2018 by: DONNA SOUZA TO JAMIE HOSKINS IN ED Glucose result less than 50 mg/dL suggests HYPOGLYCEMIA. Please note revised GLUCOSE reference range effective 2017. LAB L501.1000 7-18 mg/dL Normal BUN 12 LAB L501.1100 0.55-1.02 mg/dL Normal CREAT,SERUM 0.88 Result Comment: The validity of the calculated GFR AND GFRAA in patients over 70 years has not been determined. Clinical correlation is essential. LAB L501.1110 >60 mL/min Normal EST GFR 77 Result Comment: Non- GFR Calc LAB L501.1115 >60 mL/min Normal EST GFR - AA 93 Result Comment: GFR Calc LAB L501.1255 ml/min Normal Estimated CRCL 69.23 LAB L501.1300 10-20 RATIO Normal BUN/CRE 13.7 LAB L501.1500 6.4-8. g/dL Normal 2 T PROT 7.8 LAB L501.1800 3.2-5. g/dL Normal 0 ALB 3.6 LAB L501.1950 2.2-4. g/dL Normal 2 GLOB 4.2 LAB L501.2000 0.9-2. RATIO Normal 4 A/G 0.9 LAB L501.2200 8.5-10 mg/dL Normal .1 CA 9.0 LAB L501.4100 15-37 U/L Normal AST 23 LAB L501.4305 45-117 U/L Normal ALK P 105 LAB L501.4405 13-56 U/L Normal ALT 38 LAB L501.4600 0.20-1 mg/dL Normal .00 T BILI 0.30 LAB L501.5300 136-14 mmol/L Normal 5 NA 137 LAB L501.5600 3.5-5. mmol/L Normal 1 K 3.9 LAB L501.5900 98-107 mmol/L Normal CL 104 LAB L501.6100 21.0-3 mmol/L Low 2.0 CO2 alert 8.0 Result Comment: Critical Result(s) Called at: 23:14:35 01/11/2018 by: DONNA SOUZA TO JAMIE HOSKINS IN ED LAB L501.6200 5-15 High GAP 25 Performed By: #### L500.4050, L501.4010 #### [facility] [address] [place], [place], [address] TROPONIN-I Collected: 01/11/2018 Status: F Source: [place] 10:30 PM [facility] [place] REPOSITORY TYPE CODE TESTS RESULT OUT OF RANGE REFERENCE UNITS LAB L501.4010 <0.045 ng/mL Normal < 0.015 TROPONIN-I Result Comment: TROPONIN-I EXPECTED VALUES <0.045 Negative 0.045 - 0.590 Consistent with Cardiac Damage > OR = 0.600 Critical Value Not every elevated troponin is indicative of TX. These values should be used with clinical judgement in examining the patient's clinical picture for diagnosis. To establish a diagnosis of TX versus myocardial injury, there must be a demonstrated rise and/or fall in the troponin values, in addition to ischemic symptoms, EKG changes, new regional wall motion abnormality, and/or angiographical evidence. PLEASE NOTE: REFERENCE RANGES EDITED 17 Performed By: #### L500.4050, L501.4010 #### [facility] [address] [place], [address] URINALYSIS, COMPLETE Collected: 01/11/2018 Status: F Source: [place] 9:50 PM [facility] [place] REPOSITORY Order Comment: Order Date: 01/11/18 How was Urine Obtained? CLEAN CATCH TYPE CODE TESTS RESULT OUT OF RANGE REFERENCE UNITS LAB L400.3000 Yellow COLOR Normal Yellow LAB L400.3050 Clear Normal CLARITY Cloudy LAB L400.3200 Normal mg/dl Normal GLUCOSE, UR Normal LAB L400.3300 Negative mg/dL High BILIRUBIN URINE 1 Result Comment: COLOR OF URINE MAY AFFECT DIPSTICK RESULTS. LAB L400.3400 Negative mg/dl Normal KETONE UR Negative LAB L400.3465 1.002-1.030 Normal SP.GR. DIPSTX 1.015 LAB L400.3550 5.0 - 8.0 pH Normal UR 6.0 LAB L400.3600 Negative mg/dl High PROT DIPSTX 30 LAB L400.3700 Normal mg/dl High UROBILI 1 LAB L400.3750 Negative High NITRITE UR Positive LAB L400.3780 Negative /ul High OCCULT 250 BLOOD-UR LAB L400.3800 Negative /ul High LEUK ESTERASE 500 LAB L400.4050 0-5 /hpf Normal WBC 25-50 SEEN LAB L400.4100 0-5 /hpf Normal RBC-UA 10-25 SEEN LAB L400.4150 5-10 /hpf Normal SQUAM EPI 0-5 SEEN LAB L400.4300 None Seen /hpf Normal BACTERIA 3+ LAB L400.4350 <or=2+ /hpf Normal MUCUS, URINE 0 SEEN Performed By: #### L400.0001 #### [facility] [address] [facility] [place], [address] ,URINE Collected: 01/11/2018 Status: F Source: [place] 9:50 PM [facility] [place] REPOSITORY Order Comment: Order Date: 01/11/18 TYPE CODE TESTS RESULT OUT OF REFERENCE UNITS RANGE LAB L400.8000 Negative Normal HCGUQUAL Negative Result Comment: Very dilute urine specimens, as indicated by a low specific gravity, may not contain wine sales representative levels of hCG. If is still suspected, a first morning urine specimen should be collected 48 hours later and tested. Performed By: #### L400.7600 #### [facility] [address] [facility] [place], [place], [id number] CHEST PA AND LATERAL Observed: 01/11/2018 Status: F Source: [place] 9:32 PM [facility] [place] REPOSITORY [facility] [address] [place] [address] Chest PA and Lateral MR#: [id number] Acct: [id number] Name: YARED STALLWORTH Rep #: [id number] : 1980 F 37 From: Francheska Cordero MD PCP: Ramon Espinosa MD Status: REG ER Study: Chest PA and Lateral Date of Exam: 01/11/18 Exam# [id number] Ordering Dr: Clement Lucas MD STUDY: X-RAY CHEST REASON FOR EXAM: Female, 37 years old. Weakness. TECHNIQUE: PA and lateral views of the chest. COMPARISON: Chest radiograph dated May 21, 2016. FINDINGS: Cardiac monitoring leads are present. The lungs are clear and expanded. There is no demonstrated pleural abnormality. Normal size heart. Normal mediastinum and althea. Normal visualized pulmonary arteries. Normal visualized aortic arch and descending thoracic aorta. Normal visualized thoracic spine. Normal visualized ribs, clavicles, and shoulders. There is no demonstrated abnormality of the visualized soft tissue structures of the upper abdomen. RAD/Chest PA and Lateral IMPRESSION: No radiographic evidence of acute cardiopulmonary disease. Electronically Signed: Francheska Cordero MD at 23:12 EDT , Service support , CC: Ramon Espinosa MD; Clement Lucas Upper Cutter Out: Signed BEDSIDE GLUCOSE Collected: 01/11/2018 Status: F Source: [place] 9:09 PM [facility] [place] REPOSITORY TYPE CODE TESTS RESULT OUT OF RANGE REFERENCE UNITS LAB L501.080 70-110 mg/dL Normal BEDSIDE GLU 84 Result Comment: MANAGEMENT OF PATIENT CARE PER NURSING PROTOCOL Performed By: #### L501.080 #### [facility] Point of Care [address] [place], [place] [id number] PROGRESS Observed: 12/19/2017 Status: COMPLETED Source: [place] 4:23 PM [facility] [place] REPOSITORY HNO ID: [id number] Author: Dada Fuentes) Noemi Service: (none) Author Type: Physician Brass Wind Instrument Maker Type: Progress Notes Filed: 12/19/2017 4:28 PM Note Text: Subjective HPI Pt presents with congestion and cough x 3 days. No fever or chills. She has MS and her pcp always tells her to be seen right away. No nvd or abdominal pain. She did use some otc sinus meds without relief. Review of Systems HENT: Positive for congestion and sinus pain. Respiratory: Positive for cough. All other systems reviewed and are negative. PAST MEDICAL HISTORY Diagnosis Date - Anemia - Avascular necrosis (HCC) left hip. DO NOT PRESCRIBE CONTROLLED SUBSTANCES-See TE 01/05/16 - Depression - Encounter for insertion of mirena IUD 06/30/2017 heavy menstrual bleeding - Kidney stones - Multiple sclerosis (HCC) - Transverse myelitis (HCC) 2006 Current Outpatient Prescriptions: amitriptyline (ELAVIL) 100 mg tablet TAKE 1 TABLET BY MOUTH THREE TIMES DAILY Disp: 90 tablet Rfl: 3 levETIRAcetam (KEPPRA) 500 mg tablet TAKE 1 TABLET TWICE DAILY Disp: 60 tablet Rfl: 5 gabapentin (NEURONTIN) 800 mg tablet TAKE 1 TABLET BY MOUTH FOUR TIMES DAILY Disp: 120 tablet Rfl: 2 meloxicam (MOBIC) 15 mg tablet Take 1 tablet by mouth once daily. Disp: 30 tablet Rfl: 2 ondansetron (ZOFRAN) 4 mg tablet Take 1 tablet by mouth every 8 hours as needed for Nausea/Vomiting. Disp: 30 tablet Rfl: 3 ferrous sulfate (IRON) 325 mg (65 mg iron) tablet Take 1 tablet by mouth twice daily. Disp: 30 tablet Rfl: 11 diphenoxylate-atropine (LOMOTIL) 2.5-0.025 mg per tablet TAKE 1 TABLET FOUR TIMES DAILY NEEDED for diarrhea Disp: 30 tablet Rfl: 2 oxybutynin (DITROPAN) 5 mg tablet Take 1 tablet by mouth three times daily. Disp: 90 tablet Rfl: 2 omeprazole (PRILOSEC) 20 mg capsule Take 1 capsule by mouth daily 30 minutes before breakfast Disp: 90 capsule Rfl: 3 fluticasone (FLONASE) 50 mcg/actuation nasal spray Use 1 [place] in each nostril once daily. Disp: 1 Bottle Rfl: 0 benzonatate (TESSALON PERLE) 100 mg capsule Take 2 capsules by mouth three times daily as needed. Disp: 30 capsule Rfl: 0 cetirizine (ZYRTEC) 10 mg tablet Take 1 tablet by mouth once daily for 14 days. Disp: 14 tablet Rfl: 0 No current facility-administered medications for this visit. PAST SURGICAL HISTORY Procedure Laterality Date - APPENDECTOMY 2009 - KNEE SCOPE,DIAGNOSTIC 1997 Arthroscopy, knee R knee. - LIGATE FALLOPIAN TUBE 2006 Tubal ligation FAMILY HISTORY Problem Relation Age of Onset - Asthma Daughter - Asthma Daughter - Breast Cancer Paternal Grandmother - Cancer Father - Diabetes Father - Hypertension Father Social History Substance Use Topics - Smoking status: Never Smoker - Smokeless tobacco: Never Used - Alcohol use Yes Comment: rare use, New years etc. BP 104/82 Pulse 103 Temp 36.9 ?C (98.5 ?F) (Left Tympanic) Resp 16 Wt 81.6 kg (179 lb 12.8 oz) LMP (LMP Unknown) SpO2 97% BMI 32.89 kg/m? Objective Physical Exam Constitutional: She is oriented to person, place, and time and well-developed, well-nourished, and in no distress. HENT: Head: Normocephalic and atraumatic. Right Ear: Tympanic membrane, external ear and ear canal normal. Left Ear: Tympanic membrane, external ear and ear canal normal. Nose: Mucosal edema and rhinorrhea present. Mouth/Throat: Uvula is midline, oropharynx is clear and moist and mucous membranes are normal. Neck: Normal range of motion. Neck supple. Cardiovascular: Normal rate, regular rhythm and normal heart sounds. Pulmonary/Chest: Effort normal and breath sounds normal. Cough noted Lymphadenopathy: She has no cervical adenopathy. Neurological: She is alert and oriented to person, place, and time. Skin: Skin is warm and dry. Psychiatric: Affect and judgment normal. Nursing note and vitals reviewed. ASSESSMENT/PLAN: 1. Viral URI with cough - ICD9: 465.9, ICD10: J06.9, B97.89 - Discussed viral etiology and rationale for treatment. - Tessalon, zyrtec, and flonase given. - Symptomatic treatment with prn analgesia - Supportive care with fluids and rest - Follow up in one week if symptoms persist or sooner if worsening of symptoms MAIN [place] Observed: 12/19/2017 Status: COMPLETED Source: [place] 1:45 PM [facility] REPOSITORY Office Visit ([facility]STR) YARED STALLWORTH ([id number]) 1980 F Date Time Provider Department 12/19/17 1:45 PM DADA CRUMP) [facility] During your visit today, we recorded the following information about you: Temperature Pulse Respiration Blood pressure 98.5 degrees 103/minute 16/minute 104/82 Weight 81.6 kg Dada Crump PA-C 12/19/2017 4:28 PM Signed Subjective HPI Pt presents with congestion and cough x 3 days. No fever or chills. She has MS and her pcp always tells her to be seen right away. No nvd or abdominal pain. She did use some otc sinus meds without relief. Review of Systems HENT: Positive for congestion and sinus pain. Respiratory: Positive for cough. All other systems reviewed and are negative. PAST MEDICAL HISTORY Diagnosis Date - Anemia - Avascular necrosis (HCC) left hip. DO NOT PRESCRIBE CONTROLLED SUBSTANCES-See TE 01/05/16 - Depression - Encounter for insertion of mirena IUD 06/30/2017 heavy menstrual bleeding - Kidney stones - Multiple sclerosis (HCC) - Transverse myelitis (HCC) 2006 Current Outpatient Prescriptions: amitriptyline (ELAVIL) 100 mg tablet TAKE 1 TABLET BY MOUTH THREE TIMES DAILY Disp: 90 tablet Rfl: 3 levETIRAcetam (KEPPRA) 500 mg tablet TAKE 1 TABLET TWICE DAILY Disp: 60 tablet Rfl: 5 gabapentin (NEURONTIN) 800 mg tablet TAKE 1 TABLET BY MOUTH FOUR TIMES DAILY Disp: 120 tablet Rfl: 2 meloxicam (MOBIC) 15 mg tablet Take 1 tablet by mouth once daily. Disp: 30 tablet Rfl: 2 ondansetron (ZOFRAN) 4 mg tablet Take 1 tablet by mouth every 8 hours as needed for Nausea/Vomiting. Disp: 30 tablet Rfl: 3 ferrous sulfate (IRON) 325 mg (65 mg iron) tablet Take 1 tablet by mouth twice daily. Disp: 30 tablet Rfl: 11 diphenoxylate-atropine (LOMOTIL) 2.5-0.025 mg per tablet TAKE 1 TABLET FOUR TIMES DAILY NEEDED for diarrhea Disp: 30 tablet Rfl: 2 oxybutynin (DITROPAN) 5 mg tablet Take 1 tablet by mouth three times daily. Disp: 90 tablet Rfl: 2 omeprazole (PRILOSEC) 20 mg capsule Take 1 capsule by mouth daily 30 minutes before breakfast Disp: 90 capsule Rfl: 3 fluticasone (FLONASE) 50 mcg/actuation nasal spray Use 1 [place] in each nostril once daily. Disp: 1 Bottle Rfl: 0 benzonatate (TESSALON PERLE) 100 mg capsule Take 2 capsules by mouth three times daily as needed. Disp: 30 capsule Rfl: 0 cetirizine (ZYRTEC) 10 mg tablet Take 1 tablet by mouth once daily for 14 days. Disp: 14 tablet Rfl: 0 No current facility-administered medications for this visit. PAST SURGICAL HISTORY Procedure Laterality Date - APPENDECTOMY 2009 - KNEE SCOPE,DIAGNOSTIC 1997 Arthroscopy, knee R knee. - LIGATE FALLOPIAN TUBE 2006 Tubal ligation FAMILY HISTORY Problem Relation Age of Onset - Asthma Daughter - Asthma Daughter - Breast Cancer Paternal Grandmother - Cancer Father - Diabetes Father - Hypertension Father Social History Substance Use Topics - Smoking status: Never Smoker - Smokeless tobacco: Never Used - Alcohol use Yes Comment: rare use, New years etc. BP 104/82 Pulse 103 Temp 36.9 ?C (98.5 ?F) (Left Tympanic) Resp 16 Wt 81.6 kg (179 lb 12.8 oz) LMP (LMP Unknown) SpO2 97% BMI 32.89 kg/m? Objective Physical Exam Constitutional: She is oriented to person, place, and time and well-developed, well-nourished, and in no distress. HENT: Head: Normocephalic and atraumatic. Right Ear: Tympanic membrane, external ear and ear canal normal. Left Ear: Tympanic membrane, external ear and ear canal normal. Nose: Mucosal edema and rhinorrhea present. Mouth/Throat: Uvula is midline, oropharynx is clear and moist and mucous membranes are normal. Neck: Normal range of motion. Neck supple. Cardiovascular: Normal rate, regular rhythm and normal heart sounds. Pulmonary/Chest: Effort normal and breath sounds normal. Cough noted Lymphadenopathy: She has no cervical adenopathy. Neurological: She is alert and oriented to person, place, and time. Skin: Skin is warm and dry. Psychiatric: Affect and judgment normal. Nursing note and vitals reviewed. ASSESSMENT/PLAN: 1. Viral URI with cough - ICD9: 465.9, ICD10: J06.9, B97.89 - Discussed viral etiology and rationale for treatment. - Tessalon, zyrtec, and flonase given. - Symptomatic treatment with prn analgesia - Supportive care with fluids and rest - Follow up in one week if symptoms persist or sooner if worsening of symptoms Dada Crump PA-C Referring Provider: SELF [200] Allergies As of Date: 12/19/2017 Noted Allergy Reaction NAPROSYN (NAPROXEN) 11/27/2014 8 - GI Upset ZOLPIDEM 12/26/2011 1 - Mental Status Change Date Reviewed: 12/19/2017 Reviewed by: Sandip Khan Ma - Fully Assessed Reason for Visit: Sinusitis [127] Cmt: x 3 days Primary Visit Diagnosis:Viral URI with cough [J06.9, B97.89] Order(s):fluticasone (FLONASE) 50 mcg/actuation nasal sprayUse 1 [place] in each nostril once daily.Disp: 1 BottleRfl: 0 benzonatate (TESSALON PERLE) 100 mg capsuleTake 2 capsules by mouth three times daily as needed.Disp: 30 capsuleRfl: 0 cetirizine (ZYRTEC) 10 mg tabletTake 1 tablet by mouth once daily for 14 days.Disp: 14 tabletRfl: 0 Prescriptions as of 12/19/2017 Sig: AMITRIPTYLINE 100 MG TABLET TAKE 1 TABLET BY MOUTH THREE * LEVETIRACETAM 500 MG TABLET TAKE 1 TABLET TWICE DAILY GABAPENTIN 800 MG TABLET TAKE 1 TABLET BY MOUTH FOUR T* MELOXICAM 15 MG TABLET Take 1 tablet by mouth once d* ONDANSETRON HCL 4 MG TABLET Take 1 tablet by mouth every * FERROUS SULFATE 325 MG (65 MG* Take 1 tablet by mouth twice * DIPHENOXYLATE-ATROPINE 2.5 MG* TAKE 1 TABLET FOUR TIMES CAMRYN* OXYBUTYNIN CHLORIDE 5 MG TABL* Take 1 tablet by mouth three * OMEPRAZOLE 20 MG CAPSULE,IFRAH* Take 1 capsule by mouth daily* FLUTICASONE 50 MCG/ACTUATION * Use 1 [place] in each nostril o* BENZONATATE 100 MG CAPSULE Take 2 capsules by mouth thre* CETIRIZINE 10 MG TABLET Take 1 tablet by mouth once d* Medication notes this encounter DIPHENOXYLATE-ATROPINE 2.5 MG-0.025 MG TABLET >> Sandip Khan Ma 12/19/2017 1:54 PM >> SANDIP KHAN MA Dec 19, 2017 1:54 PM PRN Problem List As Of Date 12/19/2017 Noted Resolved Relapsing remitting multiple sclerosis (HCC) [G*INVALID FOR* Anemia, iron deficiency [D50.9] INVALID FOR* Kidney stones [N20.0] INVALID FOR* Multiple sclerosis (HCC) [G35] Depression [F32.9] Avascular necrosis of bone of left hip (HCC) [M*INVALID FOR* Frequent falls [R29.6] INVALID FOR* Avascular necrosis (HCC) [M87.00] More... Impaction of colon (HCC) [K56.49] INVALID FOR*01/12/2017 Methamphetamine use (HCC) [F15.10] INVALID FOR* More... 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 Prescriptions ordered this encounter Disp Refills Start End FLUTICASONE 50 MCG/ACTUATION NASAL S* 1 Nemesio* 0 12/19/2017 Route: EACH NOSTRIL Sig: Use 1 [place] in each nostril once daily. BENZONATATE 100 MG CAPSULE 30 c* 0 12/19/2017 Route: ORAL Sig: Take 2 capsules by mouth three times daily as needed. CETIRIZINE 10 MG TABLET 14 t* 0 12/19/2017 01/02/2018 Route: ORAL Sig: Take 1 tablet by mouth once daily for 14 days. Encounter Status:Closed by DADA CRUMP PA-C on 12/19/17 12 LEAD ELECTROCARDIOGRAM Observed: 11/22/2017 Status: F Source: [place] 1:38 PM [facility] REPOSITORY [facility] Cardiovascular Services [address] [place] [address] 12 Lead EKG 11/16/17 2242 MR#: [id number] Acct: [id number] Name: YARED STALLWORTH Rep #: [id number] : 1980 37 From: Sonu Laureano MD Attending Dr: Femi Cooley DO Status: DIS IN Ordering Dr: Tamika Cornejo DO Date: 11/16/17 Location: [facility] [place], [place] Sex: F C Admitted: 11/17/17 Test Reason : OVERDOSE Blood Pressure : / mmHG Vent. Rate : 107 BPM Atrial Rate : 107 BPM P-R Int : 184 ms QRS Dur : 084 ms QT Int : 342 ms P-R-T Axes : 048 046 037 degrees QTc Int : 456 ms Sinus tachycardia Otherwise normal ECG Confirmed by SONU LAUREANO ([id number]), photographic editor CELESTINE CORDERO ([id number]) on 11/22/2017 1:38:18 PM Referred By: JACK Confirmed By:SONU LAUREANO 11/22/17 1338 Date Sonu Laureano MD CC: Femi Cooley DO; Ramon Espinosa MD; Tamika Cornejo DO Signed PROGRESS Observed: 11/21/2017 Status: COMPLETED Source: [place] 2:44 PM [facility] [place] REPOSITORY HNO ID: [id number] Author: Clifford Hwang Service: (none) Author Type: Nurse Practitioner Type: Progress Notes Filed: 11/21/2017 2:45 PM Note Text: Noted. Clifford Hwang APRN.CNP PROGRESS Observed: 11/21/2017 Status: COMPLETED Source: [place] 2:17 PM [facility] REPOSITORY HNO ID: [id number] Author: Kayleigh Marc Ma Service: (none) Author Type: (none) Type: Progress Notes Filed: 11/21/2017 2:45 PM Note Text: TRANSITION CARE MANAGEMENT (TCM) INITIAL CONTACT Security Assistant Outreach Provider Action/FYI: - Pt discharged from [facility] on 11/20/17 due to Methamphetamine intoxication and abuse. Patient states that [facility] ER states it was up to PCP if Gabapentin/Amitriptyline should be discontinued. Per notes they states they should be d/c. - Tox screen completed. Pt was taking Tramadol 50 mg 2-3 tabs per day. With methamphetamine use she will no longer be prescribed Tramadol here. - Patient has been scheduled for 12/01/17 @ 10:20 with Clifford Hwang. Initial contact with patient post discharge, spoke to patient on November 21, 2017. Patient identified by name and . TRANSITION CARE MANAGEMENT INITIAL OUTREACH DOCUMENTATION: *Please note that this section is currently only available to locations [employer] [facility]. Beginning November 22, patient discharge date and Outreach Attempt documentation will populate here automatically. No flowsheet data found. SUMMARY: -Pt discharged from [facility] on 11/19/17. -Admitted for: - Problem List Patient Problems: Active and Suspected Problems Methamphetamine intoxication (Acute) Acute encephalopathy (Acute) Methamphetamine abuse (Acute) High anion gap metabolic acidosis (Acute) Date of Admission: 11/17/17 Date of Discharge: 11/19/17 - Primary Discharge Diagnosis Active and Suspected Problems Methamphetamine intoxication (Acute) Acute encephalopathy (Acute) Methamphetamine abuse (Acute) High anion gap metabolic acidosis (Acute) - Secondary Discharge Diagnosis Chronic Problems Transverse myelitis (Chronic) GERD (gastroesophageal reflux disease) (Chronic) BMI 33.0-33.9,adult (Chronic) Hospital Course and Treatment Operations: None Summary of Care Provided: The patient is a 37 year old F presents for confusion from [facility]. 1. psychomotor agitation secondary to methamphetamines intoxication, even with the patient's claims of not using in 2 days, it does have a long duration of effect. Improved again today. 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 methamphetamine abuse DC neurontin. Given her drug use, it can be used to accentuate highs (particularly with opiates). Rarely used for seizures. DC neurontin. 3. Seizure d/o as above for neurontin. continue Keppra[] Discharge Diet: No Restrictions Discharge Activity: Return to Normal Activity Call your doctor if you observe: Fever of 101 or Higher, - - worsening confusion Home Medications: Medications to take at Discharge Amitriptyline HCl 150 mg PO QHS 07/16/16 Meloxicam [Mobic] 15 mg PO BID 07/16/16 Omeprazole 20 mg PO DAILY 01/11/17 Ferrous Sulfate [Iron] 325 mg PO BID 07/07/17 Levetiracetam [Keppra] 500 mg PO BID 11/17/17 Documentation has been copied and pasted from [facility] EMR for correct documentation. Do you have a hospital follow up appointment with your PCP? Appointment on 12/01/17 with 10:20 am with Clifford Hwang. Yes. Remind patient of appointment date, time, and location. If not within 14 calendar days of discharge - please reschedule accordingly. MEDICATIONS: Many patients have questions or concerns about their medications once they are home. Were you prescribed any new medications? No Were you told to hold any medications? No Were any of your medications discontinued? If yes, what are those medications? Suggested by [facility] ER to d/c Neurontin 800 mg 1 tab po QID and Amitriptyline 100 mg 1 tab po TID. Pt states that the ER told her to d/c but it was up to PCP if wanting to d/c medication. Still currently taking. Do you have any questions about getting or taking your medications? No Your discharge instructions/After visit Summary (AVS) are important in guiding you through the recovery process. Is there anything I might help you understand? No Do you have all the necessary equipment and supplies at home? Yes Medical records from recent hospitalization: [facility] CNPTOUTREACH Observed: 11/21/2017 Status: COMPLETED Source: [place] 12:00 AM [facility] REPOSITORY Patient Outreach (FAMPWS) YARED STALLWORTH ([id number]) 1980 F Date Time Provider Department 11/21/17 RAMON ESPINOSA FAMPWS During your visit today, we recorded the following information about you: Kayleigh Monico Mendes 11/21/2017 2:45 PM Signed TRANSITION CARE MANAGEMENT (TCM) INITIAL CONTACT Security Assistant Outreach Provider Action/FYI: - Pt discharged from [facility] on 11/20/17 due to Methamphetamine intoxication and abuse. Patient states that [facility] ER states it was up to PCP if Gabapentin/Amitriptyline should be discontinued. Per notes they states they should be d/c. - Tox screen completed. Pt was taking Tramadol 50 mg 2-3 tabs per day. With methamphetamine use she will no longer be prescribed Tramadol here. - Patient has been scheduled for 12/01/17 @ 10:20 with Clifford Hwang. Initial contact with patient post discharge, spoke to patient on November 21, 2017. Patient identified by name and . TRANSITION CARE MANAGEMENT INITIAL OUTREACH DOCUMENTATION: *Please note that this section is currently only available to locations [employer] [facility] [place]. Beginning November 22, patient discharge date and Outreach Attempt documentation will populate here automatically. No flowsheet data found. SUMMARY: -Pt discharged from [facility] on 11/19/17. -Admitted for: - Problem List Patient Problems: Active and Suspected Problems Methamphetamine intoxication (Acute) Acute encephalopathy (Acute) Methamphetamine abuse (Acute) High anion gap metabolic acidosis (Acute) Date of Admission: 11/17/17 Date of Discharge: 11/19/17 - Primary Discharge Diagnosis Active and Suspected Problems Methamphetamine intoxication (Acute) Acute encephalopathy (Acute) Methamphetamine abuse (Acute) High anion gap metabolic acidosis (Acute) - Secondary Discharge Diagnosis Chronic Problems Transverse myelitis (Chronic) GERD (gastroesophageal reflux disease) (Chronic) BMI 33.0-33.9,adult (Chronic) Hospital Course and Treatment Operations: None Summary of Care Provided: The patient is a 37 year old F presents for confusion from [facility]. 1. psychomotor agitation secondary to methamphetamines intoxication, even with the patient's claims of not using in 2 days, it does have a long duration of effect. Improved again today. 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 methamphetamine abuse DC neurontin. Given her drug use, it can be used to accentuate highs (particularly with opiates). Rarely used for seizures. DC neurontin. 3. Seizure d/o as above for neurontin. continue Keppra[] Discharge Diet: No Restrictions Discharge Activity: Return to Normal Activity Call your doctor if you observe: Fever of 101 or Higher, - - worsening confusion Home Medications: Medications to take at Discharge Amitriptyline HCl 150 mg PO QHS 07/16/16 Meloxicam [Mobic] 15 mg PO BID 07/16/16 Omeprazole 20 mg PO DAILY 01/11/17 Ferrous Sulfate [Iron] 325 mg PO BID 07/07/17 Levetiracetam [Keppra] 500 mg PO BID 11/17/17 Documentation has been copied and pasted from [facility] EMR for correct documentation. Do you have a hospital follow up appointment with your PCP? Appointment on 12/01/17 with 10:20 am with Clifford Hwang. Yes. Remind patient of appointment date, time, and location. If not within 14 calendar days of discharge - please reschedule accordingly. MEDICATIONS: Many patients have questions or concerns about their medications once they are home. Were you prescribed any new medications? No Were you told to hold any medications? No Were any of your medications discontinued? If yes, what are those medications? Suggested by [facility] ER to d/c Neurontin 800 mg 1 tab po QID and Amitriptyline 100 mg 1 tab po TID. Pt states that the ER told her to d/c but it was up to PCP if wanting to d/c medication. Still currently taking. Do you have any questions about getting or taking your medications? No Your discharge instructions/After visit Summary (AVS) are important in guiding you through the recovery process. Is there anything I might help you understand? No Do you have all the necessary equipment and supplies at home? Yes [facility] Hwang APRN.CNP 11/21/2017 2:45 PM Signed Noted. Clifford Hwang APRN.CNP Allergies As of Date: 11/21/2017 Noted Allergy Reaction NAPROSYN (NAPROXEN) 11/27/2014 8 - GI Upset ZOLPIDEM 12/26/2011 1 - Mental Status Change Date Reviewed: 09/21/2017 Reviewed by: Clifford Hwang - Fully Assessed Reason for Visit: Hospital Follow Up [177] Cmt: [facility] D/C TCM Prescriptions as of 11/21/2017 Sig: AMITRIPTYLINE 100 MG TABLET TAKE 1 TABLET BY MOUTH THREE * TRAMADOL 50 MG TABLET TAKE 1 TABLET BY MOUTH EVERY * LEVETIRACETAM 500 MG TABLET TAKE 1 TABLET TWICE DAILY GABAPENTIN 800 MG TABLET TAKE 1 TABLET BY MOUTH FOUR T* MELOXICAM 15 MG TABLET Take 1 tablet by mouth once d* ONDANSETRON HCL 4 MG TABLET Take 1 tablet by mouth every * FERROUS SULFATE 325 MG (65 MG* Take 1 tablet by mouth twice * DIPHENOXYLATE-ATROPINE 2.5 MG* TAKE 1 TABLET FOUR TIMES CAMRYN* OXYBUTYNIN CHLORIDE 5 MG TABL* Take 1 tablet by mouth three * OMEPRAZOLE 20 MG CAPSULE,IFRAH* Take 1 capsule by mouth daily* Problem List As Of Date 11/21/2017 Noted Resolved Relapsing remitting multiple sclerosis (HCC) [G*INVALID FOR* Anemia, iron deficiency [D50.9] INVALID FOR* Kidney stones [N20.0] INVALID FOR* Multiple sclerosis (HCC) [G35] Depression [F32.9] Avascular necrosis of bone of left hip (HCC) [M*INVALID FOR* Frequent falls [R29.6] INVALID FOR* Avascular necrosis (HCC) [M87.00] More... Impaction of colon (HCC) [K56.49] INVALID FOR*01/12/2017 Encounter Status:Closed by CLIFFORD HWANG CNP on 11/21/17 DISCHARGE SUMMARY Observed: 11/19/2017 Status: F Source: [place] 10:27 AM [facility] REPOSITORY [facility] Medical Records Department [address] [place] [id number] Discharge Summary 11/19/17 1025 MR#: [id number] Acct: [id number] Name: YARED STALLWORTH Rep #: [id number] : 1980 37 From: Femi Cooley DO PCP: Ramon Espinosa MD Status: ADM IN Location: [place] [address]-1 Discharge Date and Diagnosis - Problem List Patient Problems: Active and Suspected Problems Methamphetamine intoxication (Acute) Acute encephalopathy (Acute) Methamphetamine abuse (Acute) High anion gap metabolic acidosis (Acute) Date of Admission: 11/17/17 Date of Discharge: 11/19/17 - Primary Discharge Diagnosis Active and Suspected Problems Methamphetamine intoxication (Acute) Acute encephalopathy (Acute) Methamphetamine abuse (Acute) High anion gap metabolic acidosis (Acute) - Secondary Discharge Diagnosis Chronic Problems Transverse myelitis (Chronic) GERD (gastroesophageal reflux disease) (Chronic) BMI 33.0-33.9,adult (Chronic) Hospital Course and Treatment Operations: None Summary of Care Provided: The patient is a 37 year old F presents for confusion from [facility]. 1. psychomotor agitation * secondary to methamphetamines intoxication, even with the patient's claims of not using in 2 days, it does have a long duration of effect. * Improved again today. 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 methamphetamine abuse * DC neurontin. Given her drug use, it can be used to accentuate highs (particularly with opiates). Rarely used for seizures. DC neurontin. 3. Seizure d/o * as above for neurontin. * continue Keppra[] Discharge Diet: No Restrictions Discharge Activity: Return to Normal Activity Call your doctor if you observe: Fever of 101 or Higher, - - worsening confusion Home Medications: Medications to take at Discharge Amitriptyline HCl 150 mg PO QHS 07/16/16 Meloxicam [Mobic] 15 mg PO BID 07/16/16 Omeprazole 20 mg PO DAILY 01/11/17 Ferrous Sulfate [Iron] 325 mg PO BID 07/07/17 Levetiracetam [Keppra] 500 mg PO BID 11/17/17 Primary Care Physician: Ramon Espinosa MD [Primary Care Provider] - Within 2 Weeks Disposition: Home Minutes spent on discharge:: 32 Patient Condition:: Fair Medical Necessity - Tobacco Use Smoking Status: Never smoker Meaningful Use Info Meaningful Use Diagnoses (Choose all that apply): None applicable Code Visit Inpatient E AND M: 11273 Disch Hosp 11/19/17 1027 <Electronically signed by Femi Cooley DO> Date Femi Cooley DO Cosigner Signature (if applicable): Date CC: Femi Cooley DO; Ramon Espinosa MD Signed DISCHARGE INSTRUCTION Observed: 11/19/2017 Status: F Source: [place] 10:25 AM [facility] REPOSITORY [facility] Medical Records Department [address] [place] [address] Instructions for Home/Discharge Instructions 11/19/17 1023 MR#: [id number] Acct: [id number] Name: YARED STALLWORTH Rep #: [id number] : 1980 37 From: Femi Cooley DO PCP: Ramon Espinosa MD Status: ADM IN - Discharge Diagnoses Current Active Problems: Current Active and Chronic Problems Acute encephalopathy (Acute) Methamphetamine abuse (Acute) High anion gap metabolic acidosis (Acute) You will use the following diet at home:: No restrictions Your food should be the consistency of: Regular Your liquids should be the consistency of: Regular/Thin Discharge Activity: Return to Normal Activity Call your doctor if you observe: Fever of 101 or Higher, - - worsening confusion Allergies/Adverse Reactions: Allergies naproxen [From Naprosyn] Allergy (Verified 11/17/17 02:34) Hives Medications to take at Discharge Amitriptyline HCl 150 mg PO QHS 07/16/16 Meloxicam [Mobic] 15 mg PO BID 07/16/16 Omeprazole 20 mg PO DAILY 01/11/17 Ferrous Sulfate [Iron] 325 mg PO BID 07/07/17 Levetiracetam [Keppra] 500 mg PO BID 11/17/17 Primary Care Physician: Ramon Espinosa MD [Primary Care Provider] - Within 2 Weeks Test Results: Test results from this visit will be discussed in further detail at your follow-up appointment, if applicable. Proposed Discharge Date: 11/19/17 11/19/17 1025 <Electronically signed by Femi Cooley DO> Date Femi Cooley DO CC: Ramon Espinosa MD CBC W/DIFF, AUTOMATED Collected: 11/19/2017 Status: F Source: [place] 7:40 AM [facility] REPOSITORY TYPE CODE TESTS RESULT OUT OF RANGE REFERENCE UNITS LAB L100.1000 4.4-11.0 K/mm3 Normal WBC 7.7 LAB L100.1200 4.2-5.4 M/mm3 Low RBC 3.31 LAB L100.1300 12.0-15.0 g/dl Low HGB 10.9 LAB L100.1400 37-47 % Low HCT 31.8 LAB L100.1500 81-99 fL Normal MCV 96.1 LAB L100.1600 27.0-32.0 pg High MCH 32.9 LAB L100.1700 32-36 g/gl Normal MCHC 34.3 LAB L100.1810 11.6-14.6 % Normal RDW CV 13.3 LAB L100.1820 35.1-43.9 fl High RDW SD 44.3 LAB L100.1900 150-450 K/mm3 Normal PLT 329 LAB L100.2000 6.2-12.0 fl Normal MPV 9.7 LAB L100.2100 47-70 % Normal NEUT% 53.7 LAB L100.2200 19-41 % Normal LY% 29.6 LAB L100.2300 0-10 % High MONO% 11.1 LAB L100.2400 0-5 % Normal EO% 4.3 LAB L100.2500 0-1 % Normal BASO% 0.5 LAB L100.2550 0.0-0.9 % Normal IM GRAN % 0.800 Result Comment: IG% - Immature Granulocytes (promyelocytes, myelocytes and metamyelocytes) > 1% indicates that a LEFT SHIFT is Present. LAB L100.2620 2.0-7.7 X10 3/uL Normal Absolute Neut 4.1 LAB L100.2720 0.83-4.51 X10 3/ul Normal Absolute Lymph 2.27 Performed By: #### L100.0100 #### [facility] [address] [place], [place], [id number] BASIC METABOLIC Collected: 11/19/2017 Status: F Source: [place] PROFILE ([facility]) 7:40 AM [facility] REPOSITORY TYPE CODE TESTS RESULT OUT OF RANGE REFERENCE UNITS LAB L501.0100 74-106 mg/dL Normal GLU 90 Result Comment: Please note revised GLUCOSE reference range effective 2017. LAB L501.1000 7-18 mg/dL Low BUN 5 LAB L501.1100 0.55-1.02 mg/dL Low CREAT,SERUM 0.43 Result Comment: The validity of the calculated GFR AND GFRAA in patients over 70 years has not been determined. Clinical correlation is essential. LAB L501.1110 >60 mL/min Normal EST GFR 176 Result Comment: Non- GFR Calc LAB L501.1115 >60 mL/min Normal EST GFR - AA 213 Result Comment: GFR Calc LAB L501.1255 ml/min Normal Estimated CRCL 141.67 LAB L501.1300 10-20 RATIO BUN/CRE Normal 11.7 LAB L501.2200 8.5-10 mg/dL Low .1 CA 8.0 LAB L501.5300 136-14 mmol/L 5 NA Normal 140 LAB L501.5600 3.5-5. mmol/L Low 1 K 3.0 LAB L501.5900 98-107 mmol/L High CL 109 LAB L501.6100 21.0-3 mmol/L 2.0 CO2 Normal 23.0 LAB L501.6200 5-15 GAP Normal 8 Performed By: #### L500.2500 #### [facility] [address] [place], [place], [address] Observed: 11/18/2017 Status: F Source: [place] ENTERIC PATHOGEN 12:30 PM [facility] PANEL STOOL REPOSITORY EP PANEL STOOL CAMPYLOBACTER Not Detected Salmonella Not Detected Shigella sp. Not Detected Shiga Toxin Not Detected Yersinia Not Detected VIBRIO Not Detected Norovirus Not Detected Rotavirus Not Detected Performed By: #### M100.637 #### [facility] [address] [place], [address] Observed: 11/18/2017 Status: F Source: [place] CDIFF (MOLECULAR) 12:15 PM [facility] REPOSITORY Is the patient receiving laxatives? N New/unexplained onset of 3 or more stools in past 24 hrs? Y Cdiff-Molecular Normal Reference Range = Negative C. Diff DNA Negative- No toxigenic C. Diff DNA Detected NAAT METHOD Testing was performed using nucleic acid amplification Performed By: #### M100.6796 #### [facility] [address] [place], [address] CBC W/DIFF, AUTOMATED Collected: 11/17/2017 Status: F Source: [place] 6:15 AM [facility] REPOSITORY TYPE CODE TESTS RESULT OUT OF RANGE REFERENCE UNITS LAB L100.1000 4.4-11.0 K/mm3 Normal WBC 8.2 LAB L100.1200 4.2-5.4 M/mm3 Low RBC 3.33 LAB L100.1300 12.0-15.0 g/dl Low HGB 10.6 LAB L100.1400 37-47 % Low HCT 31.6 LAB L100.1500 81-99 fL Normal MCV 94.9 LAB L100.1600 27.0-32.0 pg Normal MCH 31.8 LAB L100.1700 32-36 g/gl Normal MCHC 33.5 LAB L100.1810 11.6-14.6 % Normal RDW CV 13.6 LAB L100.1820 35.1-43.9 fl High RDW SD 46.9 LAB L100.1900 150-450 K/mm3 Normal PLT 337 LAB L100.2000 6.2-12.0 fl Normal MPV 9.3 LAB L100.2100 47-70 % Normal NEUT% 62.4 LAB L100.2200 19-41 % Normal LY% 22.7 LAB L100.2300 0-10 % High MONO% 13.6 LAB L100.2400 0-5 % Normal EO% 1.1 LAB L100.2500 0-1 % Normal BASO% 0.1 LAB L100.2550 0.0-0.9 % Normal IM GRAN % 0.100 Result Comment: IG% - Immature Granulocytes (promyelocytes, myelocytes and metamyelocytes) > 1% indicates that a LEFT SHIFT is Present. LAB L100.2620 2.0-7.7 X10 3/uL Normal Absolute Neut 5.1 LAB L100.2720 0.83-4.51 X10 3/ul Normal Absolute Lymph 1.85 Performed By: #### L100.0100 #### [facility] [address] [place], [address] BASIC METABOLIC Collected: 11/17/2017 Status: F Source: [place] PROFILE (BMP) 6:15 AM [facility] REPOSITORY TYPE CODE TESTS RESULT OUT OF RANGE REFERENCE UNITS LAB L501.0100 74-106 mg/dL Normal GLU 103 Result Comment: Fasting Glucose result from 100 to 125 mg/dL suggests IMPAIRED HOMEOSTASIS per A.D.A. criteria. Please note revised GLUCOSE reference range effective 2017. LAB L501.1000 7-18 mg/dL Normal BUN 15 LAB L501.1100 0.55-1.02 mg/dL Normal CREAT,SERUM 0.55 Result Comment: The validity of the calculated GFR AND GFRAA in patients over 70 years has not been determined. Clinical correlation is essential. LAB L501.1110 >60 mL/min Normal EST GFR 133 Result Comment: Non- GFR Calc LAB L501.1115 >60 mL/min Normal EST GFR - AA 160 Result Comment: GFR Calc LAB L501.1255 ml/min Normal Estimated CRCL 110.76 LAB L501.1300 10-20 RATIO High BUN/CRE 27.4 LAB L501.2200 8.5-10 mg/dL Low .1 CA 8.3 LAB L501.5300 136-14 mmol/L 5 NA Normal 140 LAB L501.5600 3.5-5. mmol/L 1 K Normal 3.6 LAB L501.5900 98-107 mmol/L High CL 108 LAB L501.6100 21.0-3 mmol/L 2.0 CO2 Normal 23.0 LAB L501.6200 5-15 GAP Normal 9 Performed By: #### L500.2500 #### [facility] [address] [place], [place], [address] ,SERUM,HCG QUALI. Collected: Status: F Source: [place] 11/17/2017 6:15 AM [facility] REPOSITORY Order Comment: PLEASE ADD IF POSSIBLE TYPE CODE TESTS RESULT OUT OF REFERENCE UNITS RANGE LAB L700.6700 =>Qualitative mIU/mL Normal HCG Qual < 1 triggr LAB L700.7000 0-9 Nonpreg Negative Normal HCGSQUAL NEGATIVE Performed By: #### L700.6800 #### [facility] [address] [facility] [address] [address] [place], [place], [address] LIVER PROFILE Collected: 11/17/2017 Status: F Source: [place] 6:15 AM [facility] REPOSITORY Order Comment: PLEASE ADD TYPE CODE TESTS RESULT OUT OF RANGE REFERENCE UNITS LAB L501.1500 6.4-8.2 g/dL Normal T PROT 6.5 LAB L501.1800 3.2-5.0 g/dL Low ALB 3.1 LAB L501.1950 2.2-4.2 g/dL Normal GLOB 3.4 LAB L501.4100 15-37 U/L Normal AST 24 LAB L501.4305 45-117 U/L Normal ALK P 70 LAB L501.4405 13-56 U/L Normal ALT 29 LAB L501.4600 0.20-1.00 mg/dL Normal T BILI 0.40 LAB L501.4700 0.00-0.30 mg/dL Normal D BILI 0.16 Performed By: #### L500.3400, L501.3620 #### [facility] [address] [place], [address] CPK TOTAL, CREATINE Collected: 11/17/2017 Status: F Source: [place] KINASE 6:15 AM [facility] REPOSITORY Order Comment: PLEASE ADD TYPE CODE TESTS RESULT OUT OF RANGE REFERENCE UNITS LAB L501.3620 26-192 U/L Normal CPK TOTAL 147 Performed By: #### L500.3400, L501.3620 #### [facility] [address] [place], [address] HISTORY AND PHYSICAL Observed: 11/17/2017 Status: F Source: [place] EXAM 5:49 AM [facility] REPOSITORY [facility] Medical Records Department [address] [place] [address] History and Physical 11/17/17 0025 MR#: [id number] Acct: [id number] Name: YARED STALLWORTH Rep #: [id number] : 1980 37 From: Darek Newton MD PCP: Ramon Espinosa MD Status: ADM JF Y Location: [place] [id number] ADDENDUM by Darek Newton MD on 11/17/17 at 0549 Code Visit Diarrhea-this could be from her methamphetamine withdrawal while; all infection. Enteric pathogen test ordered. Because patient reportedly lives at this long-term, C-diff ordered. If tests are negative patient can be started on antidiarrheal medications. 11/17/17 0549 <Electronically signed by Darek Newton MD> Date Darek Newton MD cc: Darek Newton MD; Ramon Espinosa MD * Signed Problem List (1) Acute encephalopathy Status: Acute (2) Methamphetamine abuse Status: Acute (3) High anion gap metabolic acidosis Status: Acute History of Present Illness Date of Admission: 11/17/17 Chief Complaint: Altered mental status x 1 day. The patient is a 37 year old F with a significant history of multiple sclerosis, epilepsy, and polysubstance dependence who presented with shakiness,, diaphoresis and incoherent speech that started a few hours before his admission. Patient used methamphetamine about a day and a half before admission. Patient and daughter thinks that patient is is withdrawing from methamphetamine. Patient lives at long-term. While the patient and daughter was coming to the emergency department patient collapsed. In the past patient used cocaine and other illicit drugs. Past Medical History Past Medical History (Chronic Problems): Chronic Problems Transverse myelitis (Chronic) GERD (gastroesophageal reflux disease) (Chronic) BMI 33.0-33.9,adult (Chronic) Allergies naproxen [From Naprosyn] Allergy (Verified 11/16/17 22:38) Hives Home Medications: Ambulatory Orders Medication Instructions Recorded Amitriptyline HCl 150 mg PO QHS 07/16/16 Meloxicam [Mobic] 15 mg PO BID 07/16/16 Surgical History: appendectomy, - - Fallopian tubes tied Psychiatric History: No pertinent psych hx SHIFT MANAGER History: No pertinent SHIFT MANAGER history Lives: - - Lives at long-term Smoking Status: Never smoker Alcohol: None Drugs: Cocaine - In the past, - - Narcotics - *Family History Maternal History Items: No pertinent history Paternal History Items: No pertinent history Review of Systems Constitutional: Reports: Malaise, Weakness Eyes: Denies: Blurred vision, Pain HEENT: Denies: Head Aches, Sinus Congestion, Sinus Drainage Cardiovascular: Denies: Chest Pain, Palpitations Respiratory: Denies: Cough, Shortness of breath at rest, Sputum production Gastrointestinal: Denies: Abdominal Pain, Nausea, Vomiting Genitourinary: Denies: Dysuria Musculoskeletal: Denies: Joint Pain, Joint Tenderness Skin: Denies: Rash, Wounds Neurological: Reports: - - Collapsed on her way to the emergency department. Psychiatric: Denies: Homicidal Ideations, Suicidal Ideations Hematologic/ Lymphatic: Denies: Easy Bruising, Easy Bleeding VTE Information - Inpt Only VTE Present on Admission: No VTE Mechan Device Prophylaxis: None VTE Pharm Prophylaxis ordered?: Yes Patient Problems: Active and Suspected Problems Acute encephalopathy (Acute) Methamphetamine abuse (Acute) High anion gap metabolic acidosis (Acute) - Physical Exam General: Alert, Oriented x3, - - Incoherent speech; and some confusion HEENT: Atraumatic, PERRLA, EOMI, Normocephalic Neck: Supple, No JVD, Negative Carotid Bruits Lungs: Clear to auscultation, Normal air movement Cardiovascular: Tachycardic Abdomen: Bowel Sounds Present, Soft, Non Tender Extremities: No edema, Capillary Refill Less than 3 Seconds Skin: No rashes, No breakdown Musculoskeletal: No Tenderness to Palpation of Joints or Extremities Neurological: Cranial nerves II-XII grossly intact Psych/Mental Status: Restless Vital Signs Temp Pulse Resp BP Pulse Ox 99.2 F H 103 H 20 H 97/63 98 11/16/17 22:34 11/16/17 23:58 11/16/17 23:58 11/16/17 23:58 11/16/17 23:58 Oxygen Delivery Method Room Air Weight: 78.3 kg Body Mass Index (BMI) 31.6 Finger Stick Blood Glucose 109 Laboratory Tests Past 24 Hrs WBC RBC Hgb Hct MCV MCH MCHC RDW RDW Differential Plt Count MPV Immature Gran % (Auto) Assessment/Plan All Active Problems Acute encephalopathy (Acute) Methamphetamine abuse (Acute) High anion gap metabolic acidosis (Acute) Drug overdose (Acute) Encephalopathy (Acute) Altered mental status (Acute) The patient is a 37 year old F with a significant history of multiple sclerosis, epilepsy, and polysubstance dependence who presented with shakiness, diaphoresis and incoherent speech consistent with acute encephalopathy secondary to methamphetamine withdrawal. Acute encephalopathy secondary to methamphetamine withdrawal. Patient with ketones in her urine and anion gap metabolic acidosis. Clinical monitoring IV fluids Case management to help with placement when patient is neurologically stable. BMP and CBC in a.m. Anemia Chronic. RBC not at goal on admission; hematocrit slightly reduced Ferrous sulfate continued Depression Elavil continued Epilepsy Keppra and gabapentin continued GERD Protonix continued Multiple sclerosis Stable Clinical monitoring DVT prophylaxis with subcutaneous Lovenox Code Visit OBSV E AND M: [id number] Initial observation care L3 11/17/17 0320 <Electronically signed by Darek Newton MD> Date Darek Newton MD Cosign Signature: Date (if applicable) CC: Darek Newton MD; Ramon Espinosa MD Signed EMERGENCY DEPARTMENT Observed: 11/17/2017 Status: F Source: [place] SUMMARY 12:34 AM [facility] REPOSITORY [facility] Medical Records Department [address] [place] [address] Emergency Department Summary 11/17/17 0031 MR#: [id number] Acct: [id number] Name: YARED STALLWORTH Rep #: [id number] : 1980 37 From: Tamika Cornejo DO PCP: Ramon Espinosa MD Status: REG ER - ER Visit Summary Date of Service: 11/17/17 Chief Complaint: [Weakness] History of Present Illness: The patient is a 37 F [presents the emergency department complaint of generalized weakness today. Patient states that she is had sweats and dark urine. Patient's been feeling clammy and shaky. Patient states that she has been dabbling and methamphetamines which she has been snorting. Patient states she has not used for the last 2-3 days. Patient's daughter pulled me aside and stated that she thinks she used last about a day and a half ago but she may have used again today. Patient denies feeling suicidal. Patient was walking with her daughter to come to the emergency department one her legs, collapsed and they called EMS for her. Patient denies any chest pain or shortness of breath. She has had some nausea. She has had some diarrhea.] Physical Examination: [HEENT-PERRLA, EOMI. Cranial nerves II through XII grossly intact. TMs clear. Mucous membranes moist. No adenopathy. Slightly diaphoretic. Patient has pressured speech. Cardiovascular-regular rate and rhythm without murmur or ectopy Lungs-clear to auscultation, chest wall stable without crepitus or subcu emphysema Abdomen-normoactive bowel sounds, soft, nontender, no rebound or rigidity, no peritoneal signs. Extremities-intact 4, normal range of motion, normal pulses, atraumatic]. Patient has a fine tremor. Test Results: [EKG obtained on arrival showed a sinus tachycardia with a ventricular rate of 107 bpm. CBC with differential obtained showed a white count of 10.3, hemoglobin 12, hematocrit 36, platelets 387. Chemistries unremarkable. Urinalysis showed 150 ketones, 5-10 WBCs, 1025 RBCs. Alcohol was less than 3. Toxicology screen was positive for amphetamines and MDMA.] Emergency Department Course and Treatment: [Was given Zofran and 2 L normal saline.] Treatment Plan: [Patient would like to go through detox for amphetamines. Case was discussed with hospitalist who will evaluate patient for admission for hydration and evaluation by abelino morrissey.] Disposition: [Admit] Impression: [Dehydration Methamphetamine withdrawal] This note was generated with [employer] dictation software. It may contain incorrect words, spelling, and punctuation that were not noted in review of the chart prior to signing ED Disposition - Plan for ED Patient: Chief Complaint: Substance Abuse Referrals: Ramon Espinosa MD [Primary Care Provider] - What to do if you have Problems For any increased pain, shortness of breath, bleeding, nausea or vomiting, chest pain, or any unexpected problems, contact your Primary Care Provider. Call [facility] ([phone]) or report to the closest Emergency Room. Call 911 if necessary. 11/17/17 0034 <Electronically signed by Tamika Cornejo DO> Date Tamika Cornejo DO Cosigner Signature (If Indicated): Date CC: Ramon Espinosa MD URINE DRUG SCREEN Collected: 11/16/2017 Status: F Source: [place] (VISTA) 11:20 PM [facility] REPOSITORY TYPE CODE TESTS RESULT OUT OF RANGE REFERENCE UNITS LAB L505.0075 TO BE Normal CONFIRMED Result Comment: CONFIRMATORY TESTING FOR ALL POSITIVE URINE DRUG SCREEN RESULTS WILL ONLY BE SENT OUT UPON PHYSICIAN ORDER. VISTA Urine Drug Screen methods provide only preliminary analytical test results. A more specific alternate chemical method must be used in order to obtain a confirmed analytical result. Gas chromatography/mass spectrometery (GC/MS) is the preferred confirmatory method. Clinical consideration and professional judgement should be applied to any drug of abuse test result, particularly when preliminary positive results are used. URINE TCA TESTING MUST BE ORDERED SEPARATELY. USE TEST MNEMONIC: [facility] LAB L505.5005 VISTA UDS PH 6 Normal LAB L505.5015 <1000 High ng/mL AMPHETAMINES POSITIVE LAB L505.5025 < 200 ng/mL BARBITIURATES Normal NEGATIVE LAB L505.5035 < 200 ng/mL BENZODIAZIPINE Normal NEGATIVE LAB L505.5045 < 300 ng/mL COCAINE Normal NEGATIVE LAB L505.5055 < 500 High ng/mL ECSTACY POSITIVE LAB L505.5065 < 300 ng/mL METHADONE Normal NEGATIVE LAB L505.5075 < 300 ng/mL OPIATES Normal NEGATIVE LAB L505.5085 < 25 ng/mL PCP Normal NEGATIVE LAB L505.5095 < 50 ng/mL THC Normal NEGATIVE Performed By: #### L505.5000 #### [facility] [address] [place], [place], [address] URINALYSIS, COMPLETE Collected: 11/16/2017 Status: F Source: [place] 11:20 PM [facility] REPOSITORY Order Comment: How was Urine Obtained? CLEAN CATCH TYPE CODE TESTS RESULT OUT OF RANGE REFERENCE UNITS LAB L400.3000 Yellow COLOR Normal Yellow LAB L400.3050 Clear Normal CLARITY Clear LAB L400.3200 Normal mg/dl Normal GLUCOSE, UR Normal LAB L400.3300 Negative mg/dL Normal BILIRUBIN URINE Negative LAB L400.3400 Negative mg/dl High KETONE UR 150 Result Comment: CRITICAL VALUE *H VERIFIED. CALLED TO mono 11/16/17 5459 Asha Hernández. RESULTS READ BACK BY mono2 . LAB L400.3465 1.002-1.030 Normal SP.GR. DIPSTX 1.025 LAB L400.3550 5.0 - 8.0 pH Normal UR 6.0 LAB L400.3600 Negative mg/dl High 30 PROT DIPSTX LAB L400.3700 Normal mg/dl Normal UROBILI Normal LAB L400.3750 Negative Normal NITRITE UR Negative LAB L400.3780 Negative /ul High OCCULT 250 BLOOD-UR LAB L400.3800 Negative /ul High 25 LEUK ESTERASE LAB L400.4050 0-5 /hpf Normal WBC 5-10 SEEN LAB L400.4100 0-5 /hpf Normal RBC-UA 10-25 SEEN LAB L400.4150 5-10 /hpf Normal SQUAM EPI 0-5 SEEN LAB L400.4300 None Seen /hpf Normal BACTERIA RARE LAB L400.4350 <or=2+ /hpf 1+ Normal MUCUS, URINE Performed By: #### L400.0001 #### [facility] [address] [place], [address] CBC W/DIFF, AUTOMATED Collected: 11/16/2017 Status: F Source: [place] 11:10 PM [facility] REPOSITORY TYPE CODE TESTS RESULT OUT OF RANGE REFERENCE UNITS LAB L100.1000 4.4-11.0 K/mm3 Normal WBC 10.3 LAB L100.1200 4.2-5.4 M/mm3 Low RBC 3.81 LAB L100.1300 12.0-15.0 g/dl Normal HGB 12.2 LAB L100.1400 37-47 % Low HCT 35.7 LAB L100.1500 81-99 fL Normal MCV 93.7 LAB L100.1600 27.0-32.0 pg Normal MCH 32.0 LAB L100.1700 32-36 g/gl Normal MCHC 34.2 LAB L100.1810 11.6-14.6 % Normal RDW CV 13.6 LAB L100.1820 35.1-43.9 fl High RDW SD 46.7 LAB L100.1900 150-450 K/mm3 Normal PLT 387 LAB L100.2000 6.2-12.0 fl Normal MPV 9.3 LAB L100.2100 47-70 % Normal NEUT% 63.3 LAB L100.2200 19-41 % Normal LY% 23.0 LAB L100.2300 0-10 % High MONO% 12.3 LAB L100.2400 0-5 % Normal EO% 1.1 LAB L100.2500 0-1 % Normal BASO% 0.2 LAB L100.2550 0.0-0.9 % Normal IM GRAN % 0.100 Result Comment: IG% - Immature Granulocytes (promyelocytes, myelocytes and metamyelocytes) > 1% indicates that a LEFT SHIFT is Present. LAB L100.2620 2.0-7.7 X10 3/uL Normal Absolute Neut 6.5 LAB L100.2720 0.83-4.51 X10 3/ul Normal Absolute Lymph 2.36 Performed By: #### L100.0100 #### [facility] [address] [facility] [address] [address] [place], [place], [address] BASIC METABOLIC Collected: 11/16/2017 Status: F Source: [place] PROFILE ([facility]) 11:10 PM [facility] REPOSITORY TYPE CODE TESTS RESULT OUT OF RANGE REFERENCE UNITS LAB L501.0100 74-106 mg/dL Normal GLU 93 Result Comment: Please note revised GLUCOSE reference range effective 2017. LAB L501.1000 7-18 mg/dL High BUN 23 LAB L501.1100 0.55-1.02 mg/dL Normal CREAT,SERUM 0.71 Result Comment: The validity of the calculated GFR AND GFRAA in patients over 70 years has not been determined. Clinical correlation is essential. LAB L501.1110 >60 mL/min Normal EST GFR 98 Result Comment: Non- GFR Calc LAB L501.1115 >60 mL/min Normal EST GFR - AA 118 Result Comment: GFR Calc LAB L501.1255 ml/min Normal Estimated CRCL 85.80 LAB L501.1300 10-20 RATIO High BUN/CRE 32.3 LAB L501.2200 8.5-10 mg/dL Normal .1 CA 9.6 LAB L501.5300 136-14 mmol/L Normal 5 NA 136 LAB L501.5600 3.5-5. mmol/L Normal 1 K 3.7 LAB L501.5900 98-107 mmol/L Normal CL 102 LAB L501.6100 21.0-3 mmol/L Low 2.0 CO2 18.0 LAB L501.6200 5-15 High GAP 16 Performed By: #### L500.2500 #### [facility] [address] [facility] [place], [place], [address] ALCOHOL, BLOOD Collected: 11/16/2017 Status: F Source: [place] (MEDICAL)-SERUM 11:10 PM [facility] REPOSITORY TYPE CODE TESTS RESULT OUT OF RANGE REFERENCE UNITS LAB L501.9100 mg/dL Normal SERUM < 3.0 ETOH Result Comment: The serum:whole blood ethanol ratio is approximately 1.14 and varies slightly with hematocrit. Medical Alcohol reference interval and critical value in non-tolerant individuals; 50 - 100 Impairment 100 Intoxication 100 - 250 Severe Poisoning 250 - 400 Deep/possible fatal coma Performed By: #### L501.9100 #### [facility] [address] [place], [address] PROGRESS Observed: 09/21/2017 Status: COMPLETED Source: [place] 11:02 AM [facility] REPOSITORY HNO ID: [id number] Author: Clifford Bazan) Elia Service: (none) Author Type: Nurse Practitioner Type: Progress Notes Filed: 09/21/2017 11:44 AM Note Text: Chief Complaint Patient presents with: F/U 3 Month HPI Yared Stallworth is a 37 year old female who presents here today for Above Complaints. Patient presents to the office for 3 month follow up for seizures, MS, and left hip pain. Does have an appointment with an epilepsy specialist in December 2017. Seizures: Currently prescribed Gabapentin 3,200 mg daily. Claims that she has had 3 seizures in the past 48 hours. One last greater than 3 minutes. Did not go to the ER for care. Has been complaining of difficulty with sleeping, also having headaches. Left eye has been twitching. Headaches have been keeping her up at night. Has been taking Tylenol Headache for her symptoms. No drooping of the face. No slurred speech. Left hip pain: Takes Meloxicam for hip pain. Stable at this time., M/S: Has a long standing history of MS. This is self reported and documentation is lacking. After reviewing provider notes, it appears as if she has had a MRI that did not show any signs. Does have days where she has difficulty with ADLs, problems with getting around. Some days with random body parts having numbness. Past medical history, appointments, medications, allergies reviewed. Previous Medical History PAST MEDICAL HISTORY Diagnosis Date - Anemia - Avascular necrosis (HCC) left hip. DO NOT PRESCRIBE CONTROLLED SUBSTANCES-See TE 01/05/16 - Depression - Encounter for insertion of mirena IUD 06/30/2017 heavy menstrual bleeding - Kidney stones - Multiple sclerosis (HCC) - Transverse myelitis (HCC) 2006 Previous Surgical History PAST SURGICAL HISTORY Procedure Laterality Date - APPENDECTOMY 2009 - KNEE SCOPE,DIAGNOSTIC 1997 Arthroscopy, knee R knee. - LIGATE FALLOPIAN TUBE 2005 Tubal ligation Family History FAMILY HISTORY Problem Relation Age of Onset - Asthma Daughter - Asthma Daughter - Breast Cancer Paternal Grandmother - Cancer Father - Diabetes Father - Hypertension Father Patient Allergies ALLERGIES Allergen Reactions - Naprosyn [Naproxen] GI Upset - Zolpidem Mental Status Change Current Medications Current Outpatient Prescriptions on File Prior to Visit: ondansetron (ZOFRAN) 4 mg tablet Take 1 tablet by mouth every 8 hours as needed for Nausea/Vomiting. amitriptyline (ELAVIL) 100 mg tablet Take 1 tablet by mouth three times daily. gabapentin (NEURONTIN) 800 mg tablet Take 1 tablet by mouth four times daily for 90 days. traMADol (ULTRAM) 50 mg tablet Take 1 tablet by mouth every 8 hours as needed for Pain for up to 30 days. FOR PAIN ferrous sulfate (IRON) 325 mg (65 mg iron) tablet Take 1 tablet by mouth twice daily. diphenoxylate-atropine (LOMOTIL) 2.5-0.025 mg per tablet TAKE 1 TABLET FOUR TIMES DAILY NEEDED for diarrhea meloxicam (MOBIC) 15 mg tablet Take 1 tablet by mouth once daily. omeprazole (PRILOSEC) 20 mg capsule Take 1 capsule by mouth daily 30 minutes before breakfast oxybutynin (DITROPAN) 5 mg tablet Take 1 tablet by mouth three times daily. No current facility-administered medications on file prior to visit. Social History Social History Marital status: Spouse name: Years of education: Number of children: Social History Main Topics Smoking status: Never Smoker Smokeless tobacco: Never Used Alcohol use: Yes Comment: rare use, New years etc. Drug use: No Sexual activity: Yes Partners with: Male control/protection: Tubal Ligation Social History Narrative She drives, lives in house with BF and her 5 children and his 1 child. Works about 45 hours a week. REVIEW OF SYSTEMS: as above ? Reviewed relevant PMHx, PSHx, Social Hx, current medications and allergies. EXAM: Pulse 96 Temp 36.2 ?C (97.2 ?F) (Tympanic) Wt 83 kg (183 lb) BMI 33.47 kg/m? General Appearance: Well appearing, alert, in no acute distress, well-hydrated, well nourished.. Head: Normocephalic, no masses, lesions, tenderness or abnormalities. Eyes: Anicteric sclera. Pupils are equally round and reactive to light. Extraocular movements are intact. . Ears: External ears normal, canals clear. Nose/Sinuses: Nares normal, septum midline, mucosa normal, no drainage or sinus tenderness. Oropharynx: Lips, mucosa, and tongue normal, teeth and gums normal, oropharynx normal. Neck: Supple, no adenopathy; thyroid symmetric, normal size, no bruits. Lungs: Lungs clear to auscultation. No wheezing, rhonchi, rales. Heart: RRR without murmur, gallop, or rubs. No ectopy. Extremities: No deformities, edema. Neurologic: Gait normal. Reflexes normal and symmetric. Sensation grossly intact. Tongue is midline, smile is symmetrical, finger to nose exam is normal. Health Maintenance List PAP EVERY 5 YEARS due on 02/04/2010 HPV EVERY 5 YEARS due on 02/04/2010 INFLUENZA(1) due on 11/12/2017 DTAP,TDAP,TD(2 - Td) due on 12/11/2025 Data reviewed Component Latest Ref Rng AND Units 01/14/2017 01/15/2017 06/27/2017 06/30/2017 Cannabinoid Quant, Urine <16 ng/mL <16 Benzoylecognine Quant, Urine <24 ng/mL <24 6-Acetylmorphine Quant, Urine <5 ng/mL <5 Amphetamine Quant, Urine <5 ng/mL <5 Methamphetamine Quant, Urine <8 ng/mL <8 Buprenorphine Quant, Urine <20 ng/mL <20 Norbuprenorphine Quant, Urine <20 ng/mL <20 Methadone Quant, Urine <16 ng/mL <16 EDDP Quant, Urine <6 ng/mL <6 Tramadol Quant, Urine <25 ng/mL <25 Desmethyltramadol Quant, Urine <20 ng/mL 48 (H) Fentanyl Quant, Urine <6 ng/mL <6 Norfentanyl Quant, Urine <6 ng/mL <6 Codeine Quant, Urine <11 ng/mL <11 Morphine Quant, Urine <10 ng/mL <10 Dihydrocodeine Quant, Urine <5 ng/mL <5 Hydrocodone Quant, Urine <8 ng/mL <8 Oxycodone Quant, Urine <5 ng/mL <5 Hydromorphone Quant, Urine <5 ng/mL <5 Oxymorphone Quant, Urine <5 ng/mL <5 Creatinine,Ur Pain Rogers >19 mg/dL >50 Urine pH, Pain Rogers 4 - 10 4-10 Specific Edmond,Ur Pain Rogers 1.005 - 1.020 1.005-1.020 Oxidants,Ur Negative Negative Note,Ur Pain Rogers This test is for Medical use only. Specimen Quality, Ur Pain Rogers Specimen quality results within acceptable limits. WBC 3.70 - 11.00 k/uL 14.41 (H) 8.03 6.05 RBC 3.90 - 5.20 m/uL 3.19 (L) 2.88 (L) 3.78 (L) HGB 11.2 - 15.7 g/dL 8.7 (L) 7.8 (L) Hematocrit 36.0 - 46.0 % 28.6 (L) 24.8 (L) 32.9 (L) MCV 80.0 - 100.0 fL 89.7 86.1 87.0 MCH 26.0 - 34.0 pG 27.3 27.1 26.2 MCHC 30.5 - 36.0 g/dL 30.4 (L) 31.5 (L) 30.1 (L) RDW 11.7 - 14.4 % 17.8 (H) 18.0 (H) RDW-SD 36.4 - 46.3 fl 57.9 (H) 57.0 (H) Platelet Count 150 - 400 k/uL 365 395 (H) 548 (H) MPV 9.0 - 12.7 fL 9.6 9.6 9.4 Nucleated RBC % 0.0 - 0.2 % 0.2 Nucleated RBC Absolute 0.00 - 0.01 thou/cmm 0.02 (H) Hemoglobin 11.5 - 15.5 g/dL 9.9 (L) RDW-CV 11.5 - 15.0 % 18.9 (H) Absolute nRBC <0.01 k/uL <0.01 Sodium 136 - 145 mEq/L 135 (L) 140 Potassium 3.5 - 5.1 mEq/L 3.2 (L) 3.2 (L) Chloride 98 - 107 mEq/L 107 108 (H) CO2 21 - 32 mEq/L 18 (L) 27 Glucose 70 - 99 mg/dL 147 (H) 98 BUN 7 - 18 mg/dL 7 2 (L) Creatinine 0.51 - 0.95 mg/dL 0.27 (L) 0.46 (L) Calcium 8.5 - 10.1 mg/dL 7.6 (L) 7.3 (L) Anion Gap 8 - 16 13 8 Phencyclidine Negative Preliminary positive. (A) Benzodiazepines Urine Negative Negative Cocaine Urine Negative Negative Amphetamines Negative Negative Cannabinoids, Urine Negative Negative Opiates Negative Negative Barbiturates Negative Negative Ethanol, Urine <11 mg/dL <11 Oxycodone, Urine Negative Negative , Urine neg - pos neg Quality Check yes/no Yes eGFR >60mL/min/1.73m2 >60 >60 Phosphorus 2.5 - 4.9 mg/dL 2.2 (L) ASSESSMENT/PLAN: 1. Multiple sclerosis (HCC) - ICD9: 340, ICD10: G35 (primary diagnosis) - Stable, we will decrease Tramadol to once daily, discussed using prednisone tapers for flares. 2. Left hip pain - ICD9: 719.45, ICD10: M25.552 - Stable, continue current medication. - MELOXICAM 15 MG TABLET 3. Seizures (HCC) - ICD9: 780.39, ICD10: R56.9 - Has had 3 in the past 48 hours, we will keep her following up with neurology, Get an EEG completed. Continue with Gabapentin, as we are at the max dose, start Keppra 500 mg twice daily. Get MRI of the brain. - VISUAL EVOKED POTENTIAL - LEVETIRACETAM 500 MG TABLET - MRI BRAIN WO IVCON 4. Headache causing frequent awakening from sleep - ICD9: 784.0, ICD10: R51 - Unclear etiology. Started prior to her increase in seizures. - MRI BRAIN WO IVCON 5. Convulsions, unspecified convulsion type (HCC) - ICD9: 780.39, ICD10: R56.9 - See above. - MRI BRAIN WO IVCON Discussed case with Dr. Espinosa. We will start Keppra, get imaging and have close follow up in 3 weeks. Sooner if needed. Discussed need to go to ER if having more seizures. Clifford Hwang APRN.CNP CNOV Observed: 09/21/2017 Status: COMPLETED Source: [place] 11:00 AM [facility] REPOSITORY Office Visit ([facility]) YARED STALLWORTH ([id number]) 1980 F Date Time Provider Department 09/21/17 11:00 AM [facility] your visit today, we recorded the following information about you: Temperature Pulse Weight 97.2 degrees 96/minute 83 kg Clifford Hwang APRN.CNP 09/21/2017 11:44 AM Addendum Chief Complaint Patient presents with: F/U 3 Month HPI Yared Stallworth is a 37 year old female who presents here today for Above Complaints. Patient presents to the office for 3 month follow up for seizures, MS, and left hip pain. Does have an appointment with an epilepsy specialist in December 2017. Seizures: Currently prescribed Gabapentin 3,200 mg daily. Claims that she has had 3 seizures in the past 48 hours. One last greater than 3 minutes. Did not go to the ER for care. Has been complaining of difficulty with sleeping, also having headaches. Left eye has been twitching. Headaches have been keeping her up at night. Has been taking Tylenol Headache for her symptoms. No drooping of the face. No slurred speech. Left hip pain: Takes Meloxicam for hip pain. Stable at this time., M/S: Has a long standing history of MS. This is self reported and documentation is lacking. After reviewing provider notes, it appears as if she has had a MRI that did not show any signs. Does have days where she has difficulty with ADLs, problems with getting around. Some days with random body parts having numbness. Past medical history, appointments, medications, allergies reviewed. Previous Medical History PAST MEDICAL HISTORY Diagnosis Date - Anemia - Avascular necrosis (HCC) left hip. DO NOT PRESCRIBE CONTROLLED SUBSTANCES-See TE 01/05/16 - Depression - Encounter for insertion of mirena IUD 06/30/2017 heavy menstrual bleeding - Kidney stones - Multiple sclerosis (HCC) - Transverse myelitis (HCC) 2006 Previous Surgical History PAST SURGICAL HISTORY Procedure Laterality Date - APPENDECTOMY 2009 - KNEE SCOPE,DIAGNOSTIC 1998 Arthroscopy, knee R knee. - LIGATE FALLOPIAN TUBE 2006 Tubal ligation Family History FAMILY HISTORY Problem Relation Age of Onset - Asthma Daughter - Asthma Daughter - Breast Cancer Paternal Grandmother - Cancer Father - Diabetes Father - Hypertension Father Patient Allergies ALLERGIES Allergen Reactions - Naprosyn [Naproxen] GI Upset - Zolpidem Mental Status Change Current Medications Current Outpatient Prescriptions on File Prior to Visit: ondansetron (ZOFRAN) 4 mg tablet Take 1 tablet by mouth every 8 hours as needed for Nausea/Vomiting. amitriptyline (ELAVIL) 100 mg tablet Take 1 tablet by mouth three times daily. gabapentin (NEURONTIN) 800 mg tablet Take 1 tablet by mouth four times daily for 90 days. traMADol (ULTRAM) 50 mg tablet Take 1 tablet by mouth every 8 hours as needed for Pain for up to 30 days. FOR PAIN ferrous sulfate (IRON) 325 mg (65 mg iron) tablet Take 1 tablet by mouth twice daily. diphenoxylate-atropine (LOMOTIL) 2.5-0.025 mg per tablet TAKE 1 TABLET FOUR TIMES DAILY NEEDED for diarrhea meloxicam (MOBIC) 15 mg tablet Take 1 tablet by mouth once daily. omeprazole (PRILOSEC) 20 mg capsule Take 1 capsule by mouth daily 30 minutes before breakfast oxybutynin (DITROPAN) 5 mg tablet Take 1 tablet by mouth three times daily. No current facility-administered medications on file prior to visit. Social History Social History Marital status: Spouse name: Years of education: Number of children: Social History Main Topics Smoking status: Never Smoker Smokeless tobacco: Never Used Alcohol use: Yes Comment: rare use, New years etc. Drug use: No Sexual activity: Yes Partners with: Male control/protection: Tubal Ligation Social History Narrative She drives, lives in house with BF and her 5 children and his 1 child. Works about 45 hours a week. REVIEW OF SYSTEMS: as above ? Reviewed relevant PMHx, PSHx, Social Hx, current medications and allergies. EXAM: Pulse 96 Temp 36.2 ?C (97.2 ?F) (Tympanic) Wt 83 kg (183 lb) BMI 33.47 kg/m? General Appearance: Well appearing, alert, in no acute distress, well-hydrated, well nourished.. Head: Normocephalic, no masses, lesions, tenderness or abnormalities. Eyes: Anicteric sclera. Pupils are equally round and reactive to light. Extraocular movements are intact. . Ears: External ears normal, canals clear. Nose/Sinuses: Nares normal, septum midline, mucosa normal, no drainage or sinus tenderness. Oropharynx: Lips, mucosa, and tongue normal, teeth and gums normal, oropharynx normal. Neck: Supple, no adenopathy; thyroid symmetric, normal size, no bruits. Lungs: Lungs clear to auscultation. No wheezing, rhonchi, rales. Heart: RRR without murmur, gallop, or rubs. No ectopy. Extremities: No deformities, edema. Neurologic: Gait normal. Reflexes normal and symmetric. Sensation grossly intact. Tongue is midline, smile is symmetrical, finger to nose exam is normal. Health Maintenance List PAP EVERY 5 YEARS due on 02/04/2010 HPV EVERY 5 YEARS due on 02/04/2010 INFLUENZA(1) due on 11/12/2017 DTAP,TDAP,TD(2 - Td) due on 12/11/2025 Data reviewed Component Latest Ref Rng AND Units 01/14/2017 01/15/2017 06/27/2017 06/30/2017 Cannabinoid Quant, Urine <16 ng/mL <16 Benzoylecognine Quant, Urine <24 ng/mL <24 6-Acetylmorphine Quant, Urine <5 ng/mL <5 Amphetamine Quant, Urine <5 ng/mL <5 Methamphetamine Quant, Urine <8 ng/mL <8 Buprenorphine Quant, Urine <20 ng/mL <20 Norbuprenorphine Quant, Urine <20 ng/mL <20 Methadone Quant, Urine <16 ng/mL <16 EDDP Quant, Urine <6 ng/mL <6 Tramadol Quant, Urine <25 ng/mL <25 Desmethyltramadol Quant, Urine <20 ng/mL 48 (H) Fentanyl Quant, Urine <6 ng/mL <6 Norfentanyl Quant, Urine <6 ng/mL <6 Codeine Quant, Urine <11 ng/mL <11 Morphine Quant, Urine <10 ng/mL <10 Dihydrocodeine Quant, Urine <5 ng/mL <5 Hydrocodone Quant, Urine <8 ng/mL <8 Oxycodone Quant, Urine <5 ng/mL <5 Hydromorphone Quant, Urine <5 ng/mL <5 Oxymorphone Quant, Urine <5 ng/mL <5 Creatinine,Ur Pain Rogers >19 mg/dL >50 Urine pH, Pain Rogers 4 - 10 4-10 Specific [place],Ur Pain Rogers 1.005 - 1.020 1.005-1.020 Oxidants,Ur Negative Negative Note,Ur Pain Rogers This test is for Medical use only. Specimen Quality, Ur Pain Rogers Specimen quality results within acceptable limits. WBC 3.70 - 11.00 k/uL 14.41 (H) 8.03 6.05 RBC 3.90 - 5.20 m/uL 3.19 (L) 2.88 (L) 3.78 (L) HGB 11.2 - 15.7 g/dL 8.7 (L) 7.8 (L) Hematocrit 36.0 - 46.0 % 28.6 (L) 24.8 (L) 32.9 (L) MCV 80.0 - 100.0 fL 89.7 86.1 87.0 MCH 26.0 - 34.0 pG 27.3 27.1 26.2 MCHC 30.5 - 36.0 g/dL 30.4 (L) 31.5 (L) 30.1 (L) RDW 11.7 - 14.4 % 17.8 (H) 18.0 (H) RDW-SD 36.4 - 46.3 fl 57.9 (H) 57.0 (H) Platelet Count 150 - 400 k/uL 365 395 (H) 548 (H) MPV 9.0 - 12.7 fL 9.6 9.6 9.4 Nucleated RBC % 0.0 - 0.2 % 0.2 Nucleated RBC Absolute 0.00 - 0.01 thou/cmm 0.02 (H) Hemoglobin 11.5 - 15.5 g/dL 9.9 (L) RDW-CV 11.5 - 15.0 % 18.9 (H) Absolute nRBC <0.01 k/uL <0.01 Sodium 136 - 145 mEq/L 135 (L) 140 Potassium 3.5 - 5.1 mEq/L 3.2 (L) 3.2 (L) Chloride 98 - 107 mEq/L 107 108 (H) CO2 21 - 32 mEq/L 18 (L) 27 Glucose 70 - 99 mg/dL 147 (H) 98 BUN 7 - 18 mg/dL 7 2 (L) Creatinine 0.51 - 0.95 mg/dL 0.27 (L) 0.46 (L) Calcium 8.5 - 10.1 mg/dL 7.6 (L) 7.3 (L) Anion Gap 8 - 16 13 8 Phencyclidine Negative Preliminary positive. (A) Benzodiazepines Urine Negative Negative Cocaine Urine Negative Negative Amphetamines Negative Negative Cannabinoids, Urine Negative Negative Opiates Negative Negative Barbiturates Negative Negative Ethanol, Urine <11 mg/dL <11 Oxycodone, Urine Negative Negative , Urine neg - pos neg Quality Check yes/no Yes eGFR >60mL/min/1.73m2 >60 >60 Phosphorus 2.5 - 4.9 mg/dL 2.2 (L) ASSESSMENT/PLAN: 1. Multiple sclerosis (HCC) - ICD9: 340, ICD10: G35 (primary diagnosis) - Stable, we will decrease Tramadol to once daily, discussed using prednisone tapers for flares. 2. Left hip pain - ICD9: 719.45, ICD10: M25.552 - Stable, continue current medication. - MELOXICAM 15 MG TABLET 3. Seizures (HCC) - ICD9: 780.39, ICD10: R56.9 - Has had 3 in the past 48 hours, we will keep her following up with neurology, Get an EEG completed. Continue with Gabapentin, as we are at the max dose, start Keppra 500 mg twice daily. Get MRI of the brain. - VISUAL EVOKED POTENTIAL - LEVETIRACETAM 500 MG TABLET - MRI BRAIN WO IVCON 4. Headache causing frequent awakening from sleep - ICD9: 784.0, ICD10: R51 - Unclear etiology. Started prior to her increase in seizures. - MRI BRAIN WO IVCON 5. Convulsions, unspecified convulsion type (HCC) - ICD9: 780.39, ICD10: R56.9 - See above. - MRI BRAIN WO IVCON Discussed case with Dr. Espinosa. We will start Keppra, get imaging and have close follow up in 3 weeks. Sooner if needed. Discussed need to go to ER if having more seizures. Clifford Hwang, BAKARI.[employer] TANK OPERATOR Referring Provider: SELF [[id number]] Allergies As of Date: 09/21/2017 Noted Allergy Reaction NAPROSYN (NAPROXEN) 11/27/2014 8 - GI Upset ZOLPIDEM 12/26/2011 1 - Mental Status Change Date Reviewed: 09/21/2017 Reviewed by: Clifford (Barb) Elia - Fully Assessed Reason for Visit: F/U 3 Month [443] Primary Visit Diagnosis:Multiple sclerosis (HCC) [G35] Other Visit Diagnoses:Left hip pain [M25.552] Seizures (HCC) [R56.9] Headache causing frequent awakening from sleep [R51] Convulsions, unspecified convulsion type (HCC) [R56.9] Order(s):meloxicam (MOBIC) 15 mg tabletTake 1 tablet by mouth once daily.Disp: 30 tabletRfl: 2 traMADol (ULTRAM) 50 mg tabletTake 1 tablet by mouth once daily as needed for Pain for up to 30 days. FOR PAINDisp: Rfl: VISUAL EVOKED POTENTIAL [[id number]] Order #: [id number] levETIRAcetam (KEPPRA) 500 mg tabletTake 1 tablet by mouth twice daily.Disp: 60 tabletRfl: 1 MRI BRAIN WO IVCON [[id number]] Order #: [id number] FUTURE Prescriptions as of 09/21/2017 Sig: MELOXICAM 15 MG TABLET Take 1 tablet by mouth once d* TRAMADOL 50 MG TABLET Take 1 tablet by mouth once d* ONDANSETRON HCL 4 MG TABLET Take 1 tablet by mouth every * AMITRIPTYLINE 100 MG TABLET Take 1 tablet by mouth three * GABAPENTIN 800 MG TABLET Take 1 tablet by mouth four t* FERROUS SULFATE 325 MG (65 MG* Take 1 tablet by mouth twice * DIPHENOXYLATE-ATROPINE 2.5 MG* TAKE 1 TABLET FOUR TIMES CAMRYN* OMEPRAZOLE 20 MG CAPSULE,IFRAH* Take 1 capsule by mouth daily* LEVETIRACETAM 500 MG TABLET Take 1 tablet by mouth twice * OXYBUTYNIN CHLORIDE 5 MG TABL* Take 1 tablet by mouth three * Problem List As Of Date 09/21/2017 Noted Resolved Relapsing remitting multiple sclerosis (HCC) [G*INVALID FOR* Anemia, iron deficiency [D50.9] INVALID FOR* Kidney stones [N20.0] INVALID FOR* Multiple sclerosis (HCC) [G35] Depression [F32.9] Avascular necrosis of bone of left hip (HCC) [M*INVALID FOR* Frequent falls [R29.6] INVALID FOR* Avascular necrosis (HCC) [M87.00] More... Impaction of colon (HCC) [K56.49] INVALID FOR*01/12/2017 Prescriptions ordered this encounter Disp Refills Start End MELOXICAM 15 MG TABLET 30 t* 2 09/21/2017 Route: ORAL Sig: Take 1 tablet by mouth once daily. TRAMADOL 50 MG TABLET 09/21/2017 10/21/2017 Class: Med Update Route: ORAL Sig: Take 1 tablet by mouth once daily as needed for Pain for up to 30 days. FOR PAIN LEVETIRACETAM 500 MG TABLET 60 t* 1 09/21/2017 Route: ORAL Sig: Take 1 tablet by mouth twice daily. Medications Discontinued During This Encounter Lactobacillus acidophilus (PROBIOTIC* 60 c* 2 01/19/2017 09/21/2017 Route: ORAL Sig: Take 1 capsule by mouth twice daily with meals. Disc: Discontinued by Patient meloxicam (MOBIC) 15 mg tablet 30 t* 2 06/27/2017 09/21/2017 Route: ORAL Sig: Take 1 tablet by mouth once daily. Disc: Reason for discontinue is not on file. traMADol (ULTRAM) 50 mg tablet 90 t* 2 08/01/2017 09/21/2017 Class: Print RX Route: ORAL Sig: Take 1 tablet by mouth every 8 hours as needed for Pain for up to 30 days. FOR PAIN Disc: Reason for discontinue is not on file. Disposition: Return in about 3 weeks (around 10/12/2017) for Seizures, Headache f/u. Follow-up and Disposition History Recorded Encounter Status:Closed by CLIFFORD HWANG CNP on 09/21/17 JERONIMO Observed: 08/01/2017 Status: COMPLETED Source: [place] 9:40 AM [facility] REPOSITORY [facility] YARED STALLWORTH ([id number]) 1980 F Date Time Provider Department 08/01/17 9:40 AM RAMON ESPINOSA During your visit today, we recorded the following information about you: Temperature Pulse Respiration Blood pressure 97.4 degrees 68/minute 10/minute 110/80 Weight 83.9 kg Ramon Espinosa MD 08/01/2017 11:46 AM Signed Chief Complaint Patient presents with: Hospital Follow Up: seizures HPI Yared Stallworth is a 37 year old female who presents here today for ER follow up. Pt was seen at [facility] for seizures on 07/22/17, states she has had them before but not this bad, this seizures lasted about 3 minutes and she was seizing/shaking pretty bad. Pt had MRI done. Pt would like to have her gabapentin increased, states was told at the hospital that this could help with her seizures. Has not seen Neurology for a long time; was seen up in [place] in the past, but did not have transportation; which she now can arrange through her insurance. Pt states ever since she had seizure, she has been in a lot of pain and not feeling well. Using tramadol for pain, not fully controlled; would like to go to hydrocodone. Pt would like a referral to podiatry, states she keeps getting ingrown toe nails and fungal infections. Past medical history, appointments, medications, allergies reviewed. Previous Medical History PAST MEDICAL HISTORY Diagnosis Date - Anemia - Avascular necrosis (HCC) left hip. DO NOT PRESCRIBE CONTROLLED SUBSTANCES-See TE 01/05/16 - Depression - Encounter for insertion of mirena IUD 06/30/2017 heavy menstrual bleeding - Kidney stones - Multiple sclerosis (HCC) - Transverse myelitis (HCC) 2006 Previous Surgical History PAST SURGICAL HISTORY Procedure Laterality Date - APPENDECTOMY 2009 - KNEE SCOPE,DIAGNOSTIC 1997 Arthroscopy, knee R knee. - LIGATE FALLOPIAN TUBE 2006 Tubal ligation Family History FAMILY HISTORY Problem Relation Age of Onset - Asthma Daughter - Asthma Daughter - Breast Cancer Paternal Grandmother - Cancer Father - Diabetes Father - Hypertension Father Patient Allergies ALLERGIES Allergen Reactions - Naprosyn [Naproxen] GI Upset - Zolpidem Mental Status Change Current Medications Current Outpatient Prescriptions on File Prior to Visit: ferrous sulfate (IRON) 325 mg (65 mg iron) tablet Take 1 tablet by mouth twice daily. ondansetron (ZOFRAN) 4 mg tablet Take 1 tablet by mouth every 8 hours as needed for Nausea/Vomiting. meloxicam (MOBIC) 15 mg tablet Take 1 tablet by mouth once daily. gabapentin (NEURONTIN) 800 mg tablet Take 1 tablet by mouth three times daily for 90 days. amitriptyline (ELAVIL) 100 mg tablet TAKE 1 TABLET THREE TIMES DAILY oxybutynin (DITROPAN) 5 mg tablet Take 1 tablet by mouth three times daily. omeprazole (PRILOSEC) 20 mg capsule Take 1 capsule by mouth daily 30 minutes before breakfast Lactobacillus acidophilus (PROBIOTIC) 10 billion cell cap Take 1 capsule by mouth twice daily with meals. diphenoxylate-atropine (LOMOTIL) 2.5-0.025 mg per tablet TAKE 1 TABLET FOUR TIMES DAILY NEEDED for diarrhea traMADol (ULTRAM) 50 mg tablet Take 1 tablet by mouth every 8 hours as needed for Pain for up to 7 days. FOR PAIN No current facility-administered medications on file prior to visit. Social History Social History Marital status: Spouse name: Years of education: Number of children: Social History Main Topics Smoking status: Never Smoker Smokeless tobacco: Never Used Alcohol use: Yes Comment: rare use, New years etc. Drug use: No Sexual activity: Yes Partners with: Male control/protection: Tubal Ligation Social History Narrative She drives, lives in house with and her 5 children and his 1 child. Works about 45 hours a week. EXAM: BP 110/80 Pulse 68 Temp 36.3 ?C (97.4 ?F) (Left Tympanic) Resp 10 Wt 83.9 kg (185 lb) BMI 33.84 kg/m? General Appearance: Well appearing, alert, in no acute distress, well-hydrated, well nourished.. Lungs: Lungs clear to auscultation. No wheezing, rhonchi, rales. Heart: RRR without murmur, gallop, or rubs. No ectopy. Health Maintenance List PAP EVERY 5 YEARS due on 02/04/2010 HPV EVERY 5 YEARS due on 02/04/2010 INFLUENZA(Season Ended) due on 11/12/2017 DTAP,TDAP,TD(2 - Td) due on 12/11/2025 Data reviewed ER report ASSESSMENT/PLAN: 1. Seizures (HCC) - ICD9: 780.39, ICD10: R56.9 (primary diagnosis) May increase Neurontin to 3200 mg daily; 800 mg qid - CONSULT TO NEUROLOGY 2. Relapsing remitting multiple sclerosis (HCC) - ICD9: 340, ICD10: G35 - AMITRIPTYLINE 100 MG TABLET - GABAPENTIN 800 MG TABLET - CONSULT TO NEUROLOGY - TRAMADOL 50 MG TABLET - Stay with tramadol; do not want to increase pain meds 3. Ingrown toenail - ICD9: 703.0, ICD10: L60.0 - CONSULT TO PODIATRY Follow up in 2-3 months Ramon Espinosa MD The documentation for this note was completed by Leigh Davis Ma acting as scribe for Ramon Espinosa MD. August 01, 2017 8:56 AM. Referring Provider: SELF [200] Allergies As of Date: 08/01/2017 Noted Allergy Reaction NAPROSYN (NAPROXEN) 11/27/2014 8 - GI Upset ZOLPIDEM 12/26/2011 1 - Mental Status Change Date Reviewed: 08/01/2017 Reviewed by: Leigh Davis Ma - Fully Assessed Reason for Visit: Hospital Follow Up [177] Cmt: seizures Primary Visit Diagnosis:Seizures (HCC) [R56.9] Other Visit Diagnoses:Relapsing remitting multiple sclerosis (HCC) [G35] Ingrown toenail [L60.0] Depression, unspecified depression type [F32.9] Order(s):amitriptyline (ELAVIL) 100 mg tabletTake 1 tablet by mouth three times daily.Disp: 90 tabletRfl: 3 CONSULT TO PODIATRY [[id number]] Order #: [id number]: 1 gabapentin (NEURONTIN) 800 mg tabletTake 1 tablet by mouth four times daily for 90 days.Disp: 120 tabletRfl: 2 CONSULT TO NEUROLOGY [[id number]] Order #: [id number]: 1 traMADol (ULTRAM) 50 mg tabletTake 1 tablet by mouth every 8 hours as needed for Pain for up to 30 days. FOR PAINDisp: 90 tabletRfl: 2 Prescriptions as of 08/01/2017 Sig: AMITRIPTYLINE 100 MG TABLET Take 1 tablet by mouth three * GABAPENTIN 800 MG TABLET Take 1 tablet by mouth four t* FERROUS SULFATE 325 MG (65 MG* Take 1 tablet by mouth twice * ONDANSETRON HCL 4 MG TABLET Take 1 tablet by mouth every * MELOXICAM 15 MG TABLET Take 1 tablet by mouth once d* OXYBUTYNIN CHLORIDE 5 MG TABL* Take 1 tablet by mouth three * OMEPRAZOLE 20 MG CAPSULE,IRFAH* Take 1 capsule by mouth daily* LACTOBACILLUS ACIDOPHILUS 10 * Take 1 capsule by mouth twice* TRAMADOL 50 MG TABLET Take 1 tablet by mouth every * DIPHENOXYLATE-ATROPINE 2.5 MG* TAKE 1 TABLET FOUR TIMES CAMRYN* Problem List As Of Date 08/01/2017 Noted Resolved Relapsing remitting multiple sclerosis (HCC) [G*INVALID FOR* Anemia, iron deficiency [D50.9] INVALID FOR* Kidney stones [N20.0] INVALID FOR* Multiple sclerosis (HCC) [G35] Depression [F32.9] Avascular necrosis of bone of left hip (HCC) [M*INVALID FOR* Frequent falls [R29.6] INVALID FOR* Avascular necrosis (HCC) [M87.00] More... Impaction of colon (HCC) [K56.49] INVALID FOR*01/12/2017 Prescriptions ordered this encounter Disp Refills Start End AMITRIPTYLINE 100 MG TABLET 90 t* 3 08/01/2017 Route: ORAL Sig: Take 1 tablet by mouth three times daily. GABAPENTIN 800 MG TABLET 120 * 2 08/01/2017 10/30/2017 Route: ORAL Sig: Take 1 tablet by mouth four times daily for 90 days. TRAMADOL 50 MG TABLET 90 t* 2 08/01/2017 08/31/2017 Class: Print RX Route: ORAL Sig: Take 1 tablet by mouth every 8 hours as needed for Pain for up to 30 days. FOR PAIN Medications Discontinued During This Encounter amitriptyline (ELAVIL) 100 mg tablet 90 t* 3 04/06/2017 08/01/2017 Sig: TAKE 1 TABLET THREE TIMES DAILY Disc: Reason for discontinue is not on file. gabapentin (NEURONTIN) 800 mg tablet 90 t* 2 06/27/2017 08/01/2017 Route: ORAL Sig: Take 1 tablet by mouth three times daily for 90 days. Disc: Reason for discontinue is not on file. traMADol (ULTRAM) 50 mg tablet 20 t* 5 06/27/2017 08/01/2017 Class: Print RX Route: ORAL Sig: Take 1 tablet by mouth every 8 hours as needed for Pain for up to 7 days. FOR PAIN Disc: Reason for discontinue is not on file. Disposition: Return in about 3 months (around 11/01/2017). Follow-up and Disposition History Recorded Encounter Status:Closed by RAMON ESPINOSA MD on 08/01/17 PROGRESS Observed: 08/01/2017 Status: COMPLETED Source: [place] 8:50 AM [facility] REPOSITORY HNO ID: [id number] Author: Ramon Espinosa Service: (none) Author Type: Physician Type: Progress Notes Filed: 08/01/2017 11:46 AM Note Text: Chief Complaint Patient presents with: Hospital Follow Up: seizures HPI Yared Stallworth is a 37 year old female who presents here today for ER follow up. Pt was seen at [facility] for seizures on 07/22/17, states she has had them before but not this bad, this seizures lasted about 3 minutes and she was seizing/shaking pretty bad. Pt had MRI done. Pt would like to have her gabapentin increased, states was told at the hospital that this could help with her seizures. Has not seen Neurology for a long time; was seen up in [place] in the past, but did not have transportation; which she now can arrange through her insurance. Pt states ever since she had seizure, she has been in a lot of pain and not feeling well. Using tramadol for pain, not fully controlled; would like to go to hydrocodone. Pt would like a referral to podiatry, states she keeps getting ingrown toe nails and fungal infections. Past medical history, appointments, medications, allergies reviewed. Previous Medical History PAST MEDICAL HISTORY Diagnosis Date - Anemia - Avascular necrosis (HCC) left hip. DO NOT PRESCRIBE CONTROLLED SUBSTANCES-See TE 01/05/16 - Depression - Encounter for insertion of mirena IUD 06/30/2017 heavy menstrual bleeding - Kidney stones - Multiple sclerosis (HCC) - Transverse myelitis (HCC) 2006 Previous Surgical History PAST SURGICAL HISTORY Procedure Laterality Date - APPENDECTOMY 2009 - KNEE SCOPE,DIAGNOSTIC 1997 Arthroscopy, knee R knee. - LIGATE FALLOPIAN TUBE 2005 Tubal ligation Family History FAMILY HISTORY Problem Relation Age of Onset - Asthma Daughter - Asthma Daughter - Breast Cancer Paternal Grandmother - Cancer Father - Diabetes Father - Hypertension Father Patient Allergies ALLERGIES Allergen Reactions - Naprosyn [Naproxen] GI Upset - Zolpidem Mental Status Change Current Medications Current Outpatient Prescriptions on File Prior to Visit: ferrous sulfate (IRON) 325 mg (65 mg iron) tablet Take 1 tablet by mouth twice daily. ondansetron (ZOFRAN) 4 mg tablet Take 1 tablet by mouth every 8 hours as needed for Nausea/Vomiting. meloxicam (MOBIC) 15 mg tablet Take 1 tablet by mouth once daily. gabapentin (NEURONTIN) 800 mg tablet Take 1 tablet by mouth three times daily for 90 days. amitriptyline (ELAVIL) 100 mg tablet TAKE 1 TABLET THREE TIMES DAILY oxybutynin (DITROPAN) 5 mg tablet Take 1 tablet by mouth three times daily. omeprazole (PRILOSEC) 20 mg capsule Take 1 capsule by mouth daily 30 minutes before breakfast Lactobacillus acidophilus (PROBIOTIC) 10 billion cell cap Take 1 capsule by mouth twice daily with meals. diphenoxylate-atropine (LOMOTIL) 2.5-0.025 mg per tablet TAKE 1 TABLET FOUR TIMES DAILY NEEDED for diarrhea traMADol (ULTRAM) 50 mg tablet Take 1 tablet by mouth every 8 hours as needed for Pain for up to 7 days. FOR PAIN No current facility-administered medications on file prior to visit. Social History Social History Marital status: Spouse name: Years of education: Number of children: Social History Main Topics Smoking status: Never Smoker Smokeless tobacco: Never Used Alcohol use: Yes Comment: rare use, New years etc. Drug use: No Sexual activity: Yes Partners with: Male control/protection: Tubal Ligation Social History Narrative She drives, lives in house with and her 5 children and his 1 child. Works about 45 hours a week. EXAM: BP 110/80 Pulse 68 Temp 36.3 ?C (97.4 ?F) (Left Tympanic) Resp 10 Wt 83.9 kg (185 lb) BMI 33.84 kg/m? General Appearance: Well appearing, alert, in no acute distress, well-hydrated, well nourished.. Lungs: Lungs clear to auscultation. No wheezing, rhonchi, rales. Heart: RRR without murmur, gallop, or rubs. No ectopy. Health Maintenance List PAP EVERY 5 YEARS due on 02/04/2010 HPV EVERY 5 YEARS due on 02/04/2010 INFLUENZA(Season Ended) due on 11/12/2017 DTAP,TDAP,TD(2 - Td) due on 12/11/2025 Data reviewed ER report ASSESSMENT/PLAN: 1. Seizures (HCC) - ICD9: 780.39, ICD10: R56.9 (primary diagnosis) May increase Neurontin to 3200 mg daily; 800 mg qid - CONSULT TO NEUROLOGY 2. Relapsing remitting multiple sclerosis (HCC) - ICD9: 340, ICD10: G35 - AMITRIPTYLINE 100 MG TABLET - GABAPENTIN 800 MG TABLET - CONSULT TO NEUROLOGY - TRAMADOL 50 MG TABLET - Stay with tramadol; do not want to increase pain meds 3. Ingrown toenail - ICD9: 703.0, ICD10: L60.0 - CONSULT TO PODIATRY Follow up in 2-3 months Ramon Espinosa MD The documentation for this note was completed by Leigh Davis Ma acting as scribe for Ramon Espinosa MD. August 01, 2017 8:56 AM. EMERGENCY DEPARTMENT Observed: 07/22/2017 Status: F Source: [place] SUMMARY 3:45 PM [facility] [place] REPOSITORY [facility] Medical Records Department [address] [place] [address] Emergency Department Summary 07/22/17 1245 MR#: [id number] Acct: [id number] Name: YARED STALLWORTH Rep #: [id number] : 1980 37 From: Sonu Hale DO PCP: Ramon Espinosa MD Status: DEP ER - ER Visit Summary Date of Service: 07/22/17 Chief Complaint: Reported seizure History of Present Illness: The patient is a 37 F who states that she has a history of MS and seizures (please see prior ED visits) she states she takes gabapentin and does not see neurology. She reports that she was at the [facility] today and does not remember anything but bystanders told her she was flopping like a fish. She denies any trauma. She states she feels nauseated and tired. Physical Examination: afeberile vital signs are stable Gen: Well-nourished well-developed Head: Normocephalic atraumatic Eyes: Perrl EOMI ENT: TMs clear no rhinorrhea moist mucous membranes Neck: Supple no lymphadenopathy no JVD nontender CVS: Regular rate rhythm no murmurs normal S1-S2 Respiratory: No distress clear to auscultation bilaterally chest nontender Abdomen: Soft nontender nondistended normal bowel sounds no masses Back: Nontender Extremity: Nontender no edema Skin: Normal color no rash Neuro: alert orientated 3 CN II-XII intact normal strength sensation reflexes gait cerebellar Psych: Normal affect normal mood Emergency Department Course and Treatment: Patient was given Zofran. She was observed. Patient be discharged home to follow-up with her doctors. Impression: 1. Reported seizure This note was generated with [employer] dictation software. It may contain incorrect words, spelling, and punctuation that were not noted in review of the chart prior to signing ED Disposition - Plan for ED Patient: Disposition: Home or Assisted Living Chief Complaint: Seizure Instructions: ED Seizure Recurrent Referrals: Ramon Espinosa MD [Primary Care Provider] - (call to arrange follow up) What to do if you have Problems For any increased pain, shortness of breath, bleeding, nausea or vomiting, chest pain, or any unexpected problems, contact your Primary Care Provider. Call [facility] ([phone]) or report to the closest Emergency Room. Call 911 if necessary. 07/22/17 1545 <Electronically signed by Sonu Hale DO> Date Sonu Hale DO Cosigner Signature (If Indicated): Date CC: Ramon Espinosa MD EMERGENCY DEPARTMENT Observed: 07/08/2017 Status: F Source: [place] SUMMARY 12:35 AM [facility] REPOSITORY [facility] Medical Records Department [address] [place] [address] Emergency Department Summary 07/07/17 2039 MR#: [id number] Acct: [id number] Name: STALLWORTHYARED Rep #: [id number] : 1980 37 From: Glenn Mckay MD PCP: Ramon Espinosa MD Status: DEP ER - ER Visit Summary Date of Service: 07/07/17 Chief Complaint: Reportedly recurrent seizures and headache. History of Present Illness: The patient is a 37 F history of seizure disorder and also MS. It is becoming more frequently. She states she was diagnosed with seizure 3 months ago. Primarily absence seizure's. She denies being on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 annual and IUD check. Hedy Bernal APRN.[place] [employer] TANK OPERATOR TOXICOLOGY SCREEN,UR Collected: 06/27/2017 Status: F Source: OL[facility] 3:16 PM [facility] REPOSITORY TYPE CODE TESTS RESULT OUT OF RANGE REFERENCE UNITS LAB UPCP2 Negative Preliminary Abnormal positive. Alert Phencyclidi ne, Urine Result Comment: Cutoff threshold at 25 ng/mL. LAB UBENZ2 Negative Benzodiazepines, Ur Negative Result Comment: Cutoff threshold at 200 ng/mL. LAB UCOC2 Negative Cocaine, Negative Urine Result Comment: Cutoff threshold at 300 ng/mL. LAB UAMPH2 Negative Amphetamines, Urine Negative Result Comment: Cutoff threshold at 1000 ng/mL. LAB UTHC2 Negative Cannabinoids, Urine Negative Result Comment: Cutoff threshold at 50 ng/mL. LAB UOPI2 Negative Opiates, Negative Urine Result Comment: Cutoff threshold at 300 ng/mL. LAB UBARB2 Negative Barbiturates, Urine Negative Result Comment: Cutoff threshold at 200 ng/mL. LAB UETOH <11 mg/dL <11 Ethanol, Urine LAB UOXYC Negative Oxycodone, Negative Urine Result Comment: Cutoff threshold at 100 ng/mL. Comment: Immunoassay screen only. Cross reactivity with other substances can occur with immunoassay screening. Detection of any drug(s) in this urine toxicology panel is presumptive only. These tests are for med ical purposes only and should not be used for compliance monitoring, legal, or forensic use. In clinical settings, confirmatory testing is at the practitioner's discretion [1]. If clinically indicated, confirmation by high specificity, quantitative methodology may be requested on the same speci men through Client Services ([phone]) if contacted within 48 hours of initial testing. [1]Substance Abuse and Mental Health Services Administration (2012). Clinical Drug Testing in Primary Care Technical Assistance Publication Series 32. Department of Health and Human Services, [place], p.10. These tests were developed and their performance characteristics determined by [facility]'s [facility] ([facility]). They have not been cleared or a pproved by the FDA. [facility] is regulated under CLIA as qualified to perform high complexity testing. These tests are used for clinical purposes. They should not be regarded as investigational or for research. Performed By: #### UTOX2 #### [facility] [address] [place], [place] [address] QUANT PAIN PANEL, Collected: 06/27/2017 Status: F Source: [facility] UR 3:15 PM [facility] REPOSITORY TYPE CODE TESTS RESULT OUT OF REFERENCE UNITS RANGE LAB UQCANN <16 ng/mL <16 Cannabinoid, Urine Result Comment: Tetrahydrocannabinol carboxylic acid (THCA) is a metabolite of xjmoh-1-wgmhsklesrfqkyqhnsan which is the main active component of marijuana. LAB UQBNZL <24 ng/mL Benzoylecognine, Ur <24 Result Comment: Benzoylecognine is a metabolite of cocaine. LAB UQACMR <5 ng/mL 6-Acetylmorphine, Ur <5 Result Comment: 6-AMAN (6-monoacetylmorphine, also known as 6-acetylmorphine) is a unique metabolite of heroin. Presence of 6-AMAN indicates use of heroin. 6-AMAN is further metabolized to morphine and absence of 6-AMAN does not rule out the use of heroin. LAB UQAMPH <5 ng/mL Amphetamine, Urine <5 LAB UQMAMP <8 ng/mL Methamphetamine, Ur <8 LAB UQBUPR <20 ng/mL Buprenorphine, Ur <20 LAB UQNBUP <20 ng/mL Norbuprenorphine, Ur <20 Result Comment: Norbuprenorphine is the primary active metabolite of buprenorphine. LAB UQMTHD <16 ng/mL Methadone, Urine <16 LAB UQEDDP <6 ng/mL EDDP, Urine <6 Result Comment: EDDP is a metabolite of methadone. LAB UQTRAM <25 ng/mL Tramadol, Urine <25 LAB UQDTRM <20 ng/mL High Desmethyltramadol ,Ur 48 Result Comment: O-Desmethyltramadol is a metabolite of tramadol and its presence indicates use of a tramadol containing drug (Ultram). LAB UQFNTL <6 ng/mL Fentanyl, Urine <6 LAB UQNFTL <6 ng/mL Norfentanyl, Urine <6 Result Comment: Norfentanyl is a metabolite of fentanyl. LAB UQCODE <11 ng/mL Codeine, Urine <11 LAB UQMORP <10 ng/mL Morphine, Urine <10 Result Comment: Morphine is a metabolite of codeine and heroin. LAB UQDCDN <5 ng/mL Dihydrocodeine, Ur <5 LAB UQHCOD <8 ng/mL Hydrocodone, Urine <8 Result Comment: Hydrocodone is a metabolite of dihydrocodeine. LAB UQOXYC <5 ng/mL Oxycodone, Urine <5 LAB UQHMOR <5 ng/mL Hydromorphone, Ur <5 Result Comment: Hydromorphone is a metabolite of hydrocodone. LAB UQOXYM <5 ng/mL Oxymorphone, Urine <5 Result Comment: Oxymorphone is a metabolite of oxycodone. LAB UQCREA >19 mg/dL Creatinine, Urine >50 LAB UQPH 4-10 pH, Urine 4-10 LAB UQSPGR 1.005-1.020 Specific [place],Ur 1.005-1.020 LAB UQOXID Negative Oxidants, Urine Negative LAB UQNOTE Note This test is for Medical use only. Result Comment: This test was developed and its performance characteristics determined by [facility]'s [facility] ([facility]). It has not been cleared or approved by the FDA. -[facility] is regulated under CLIA as qualified to perform high-complexity testing. This test is used for clinical purposes. It should not be regarded as investigational or for research. LAB UQSPQ Specimen Specimen Quality quality results within acceptable limits. Performed By: #### UQNTPP #### [facility] [address] [place], [place] [address] CNOV Observed: 06/27/2017 Status: COMPLETED Source: [facility] 1:20 PM [facility] YARED STALLWORTH ([id number]) 1980 F Date Time Provider Department 06/27/17 1:20 PM RAMON ESPINOSA During your visit today, we recorded the following information about you: Pulse Respiration Blood pressure Weight 74/minute 16/minute 122/72 80.3 kg Ramon Espinosa MD 06/27/2017 5:05 PM Signed Chief Complaint Patient presents with: Medication Follow-up HPI Yared Stallworth is a 37 year old female who presents here today for medication follow up. MS: is taking tramadol 50 mg, 2-3 a day. Takes Mobic 15 mg daily Also taking Gabapentin 600 mg TID which she does not feel is helping much. She would like to increase the Gabapentin. She has been having falls. Is not scheduled to see a Neurologist. Hospital thought that her last fall was related to seizure. Pt stated she will be moving into a new apartment which her landlord will allow a ramp to be placed, pt will need to have a letter for this to have wheel chair accessibility and also will need a letter for service dog to help notify people that she has fallen. Diarrhea: controlled with Lomotil, uses PRN. GERD: controlled on Prilisec 20 mg daily. Depression: controlled with Amitriptyline 100 mg at bedtime. She states that the winter months get to her, she wants to be outdoors in the warmer weather. Lump: To left breast, no pain. Noticed it about a week ago. She stated her grandmother had breast cancer and left breast removed. Past medical history, appointments, medications, allergies reviewed. Previous Medical History PAST MEDICAL HISTORY Diagnosis Date - Anemia - Avascular necrosis (HCC) left hip. DO NOT PRESCRIBE CONTROLLED SUBSTANCES-See TE 01/05/16 - Depression - Kidney stones - Multiple sclerosis (HCC) - Transverse myelitis (HCC) 2006 Previous Surgical History PAST SURGICAL HISTORY Procedure Laterality Date - APPENDECTOMY 2009 - KNEE SCOPE,DIAGNOSTIC 1997 Arthroscopy, knee R knee. - LIGATE FALLOPIAN TUBE 2006 Tubal ligation Family History FAMILY HISTORY Problem Relation Age of Onset - Asthma Child - Asthma Child - Breast Cancer Paternal Grandmother - Cancer Father - Diabetes Father - Hypertension Father Patient Allergies ALLERGIES Allergen Reactions - Naprosyn [Naproxen] GI Upset - Zolpidem Mental Status Change Current Medications Current Outpatient Prescriptions on File Prior to Visit: traMADol (ULTRAM) 50 mg tablet TAKE 1 TABLET EVERY 6 HOURS NEEDED FOR PAIN gabapentin (NEURONTIN) 600 mg tablet TAKE 1 TABLET BY MOUTH THREE TIMES DAILY diphenoxylate-atropine (LOMOTIL) 2.5-0.025 mg per tablet TAKE 1 TABLET FOUR TIMES DAILY NEEDED for diarrhea amitriptyline (ELAVIL) 100 mg tablet TAKE 1 TABLET THREE TIMES DAILY ondansetron (ZOFRAN) 4 mg tablet Take 1 tablet by mouth every 8 hours as needed for Nausea/Vomiting. meloxicam (MOBIC) 15 mg tablet Take 1 tablet by mouth once daily. oxybutynin (DITROPAN) 5 mg tablet Take 1 tablet by mouth three times daily. omeprazole (PRILOSEC) 20 mg capsule Take 1 capsule by mouth daily 30 minutes before breakfast Lactobacillus acidophilus (PROBIOTIC) 10 billion cell cap Take 1 capsule by mouth twice daily with meals. No current facility-administered medications on file prior to visit. Social History Social History Marital status: Spouse name: Years of education: Number of children: Social History Main Topics Smoking status: Never Smoker Smokeless status: Never Used Alcohol use: Yes Comment: rare use, New years etc. Drug use: No Sexual activity: Yes Partners with: Male Social History Narrative She drives, lives in house with BF and her 5 children and his 1 child. Works about 45 hours a week. EXAM: BP 122/72 Pulse 74 Resp 16 Wt 80.3 kg (177 lb) BMI 32.37 kg/m2 General Appearance: Well appearing, alert, in no acute distress, well-hydrated, well nourished., Overweight. Lungs: Lungs clear to auscultation. No wheezing, rhonchi, rales. Heart: RRR without murmur, gallop, or rubs. No ectopy. Breast: left; No skin changes or dimpling, no breast felt Health Maintenance List PAP EVERY 5 YEARS due on 02/04/2010 HPV EVERY 5 YEARS due on 02/04/2010 INFLUENZA(Season Ended) due on 11/12/2017 TETANUS due on 12/11/2025 Data reviewed None ASSESSMENT/PLAN: 1. Relapsing remitting multiple sclerosis (HCC) - ICD9: 340, ICD10: G35 (primary diagnosis) Continue with Tramadol 50 mg 2-3 tablets daily Increase Gabapentin to 800 mg TID 2. Diarrhea, unspecified type - ICD9: 787.91, ICD10: R19.7 - DIPHENOXYLATE-ATROPINE 2.5 MG-0.025 MG TABLET 3. Nausea and vomiting, intractability of vomiting not specified, unspecified vomiting type - ICD9: 787.01, ICD10: R11.2 - ONDANSETRON HCL 4 MG TABLET 4. Left hip pain - ICD9: 719.45, ICD10: M25.552 - MELOXICAM 15 MG TABLET 5. Depression, unspecified depression type - ICD9: 311, ICD10: F32.9 Continue current medications. 6. Screening for malignant neoplasm of breast - ICD9: V76.10, ICD10: Z12.31 Mammogram ordered Follow up in 3 months. Ramon Espinosa MD The documentation for this note was completed by Michelle Null Ma acting as scribe for Ramon Espinosa MD. June 27, 2017 1:12 PM. Referring Provider: RAMON ESPINOSA [[id number]] Allergies As of Date: 06/27/2017 Noted Allergy Reaction NAPROSYN (NAPROXEN) 11/27/2014 8 - GI Upset ZOLPIDEM 12/26/2011 1 - Mental Status Change Date Reviewed: 06/27/2017 Reviewed by: Michelle Null Ma - Fully Assessed Reason for Visit: Medication Follow-up [270] Primary Visit Diagnosis:Relapsing remitting multiple sclerosis (HCC) [G35] Other Visit Diagnoses:Diarrhea, unspecified type [R19.7] Nausea and vomiting, intractability of vomiting not specified, unspecified vomiting type [R11.2] Left hip pain [M25.552] Depression, unspecified depression type [F32.9] Screening for malignant neoplasm of breast [Z12.31] Medication monitoring encounter [Z51.81] Order(s):diphenoxylate-atropine (LOMOTIL) 2.5-0.025 mg per tabletTAKE 1 TABLET FOUR TIMES DAILY NEEDED for diarrheaDisp: 30 tabletRfl: 2 ondansetron (ZOFRAN) 4 mg tabletTake 1 tablet by mouth every 8 hours as needed for Nausea/Vomiting.Disp: 30 tabletRfl: 3 meloxicam (MOBIC) 15 mg tabletTake 1 tablet by mouth once daily.Disp: 30 tabletRfl: 2 gabapentin (NEURONTIN) 800 mg tabletTake 1 tablet by mouth three times daily for 90 days.Disp: 90 tabletRfl: 2 traMADol (ULTRAM) 50 mg tabletTake 1 tablet by mouth every 8 hours as needed for Pain for up to 7 days. FOR PAINDisp: 20 tabletRfl: 5 AMAN SCREENING [[id number]] Order #: [id number] FUTURE TOX SCREEN ROUT UR [SQUTOX2] Order #: [id number] FUTURE PAIN PANEL, UR QUANT [SQUQNTPP] Order #: [id number]. #:[id number] Prescriptions as of 06/27/2017 Sig: DIPHENOXYLATE-ATROPINE 2.5 MG* TAKE 1 TABLET FOUR TIMES CAMRYN* ONDANSETRON HCL 4 MG TABLET Take 1 tablet by mouth every * MELOXICAM 15 MG TABLET Take 1 tablet by mouth once d* TRAMADOL 50 MG TABLET Take 1 tablet by mouth every * AMITRIPTYLINE 100 MG TABLET TAKE 1 TABLET THREE TIMES SHARMIN* OXYBUTYNIN CHLORIDE 5 MG TABL* Take 1 tablet by mouth three * OMEPRAZOLE 20 MG CAPSULE,IFRAH* Take 1 capsule by mouth daily* GABAPENTIN 800 MG TABLET Take 1 tablet by mouth three * LACTOBACILLUS ACIDOPHILUS 10 * Take 1 capsule by mouth twice* Problem List As Of Date 06/27/2017 Noted Resolved Relapsing remitting multiple sclerosis (HCC) [G*INVALID FOR* Anemia, iron deficiency [D50.9] INVALID FOR* Kidney stones [N20.0] INVALID FOR* Multiple sclerosis (HCC) [G35] Depression [F32.9] Avascular necrosis of bone of left hip (HCC) [M*INVALID FOR* Frequent falls [R29.6] INVALID FOR* Avascular necrosis (HCC) [M87.00] More... Impaction of colon (HCC) [K56.49] INVALID FOR*01/12/2017 Prescriptions ordered this encounter Disp Refills Start End DIPHENOXYLATE-ATROPINE 2.5 MG-0.025 * 30 t* 2 06/27/2017 07/27/2017 Class: Print RX Sig: TAKE 1 TABLET FOUR TIMES DAILY NEEDED for diarrhea ONDANSETRON HCL 4 MG TABLET 30 t* 3 06/27/2017 Route: ORAL Sig: Take 1 tablet by mouth every 8 hours as needed for Nausea/Vomiting. MELOXICAM 15 MG TABLET 30 t* 2 06/27/2017 Route: ORAL Sig: Take 1 tablet by mouth once daily. GABAPENTIN 800 MG TABLET 90 t* 2 06/27/2017 09/25/2017 Route: ORAL Sig: Take 1 tablet by mouth three times daily for 90 days. TRAMADOL 50 MG TABLET 20 t* 5 06/27/2017 07/04/2017 Class: Print RX Route: ORAL Sig: Take 1 tablet by mouth every 8 hours as needed for Pain for up to 7 days. FOR PAIN Medications Discontinued During This Encounter gabapentin (NEURONTIN) 600 mg tablet 90 t* 0 06/03/2017 06/27/2017 Sig: TAKE 1 TABLET BY MOUTH THREE TIMES DAILY Disc: Reason for discontinue is not on file. diphenoxylate-atropine (LOMOTIL) 2.5* 30 t* 2 04/06/2017 06/27/2017 Class: Call Rx Sig: TAKE 1 TABLET FOUR TIMES DAILY NEEDED for diarrhea Disc: Reason for discontinue is not on file. ondansetron (ZOFRAN) 4 mg tablet 30 t* 3 03/02/2017 06/27/2017 Route: ORAL Sig: Take 1 tablet by mouth every 8 hours as needed for Nausea/Vomiting. Disc: Reason for discontinue is not on file. meloxicam (MOBIC) 15 mg tablet 30 t* 2 03/02/2017 06/27/2017 Route: ORAL Sig: Take 1 tablet by mouth once daily. Disc: Reason for discontinue is not on file. traMADol (ULTRAM) 50 mg tablet 20 t* 2 06/03/2017 06/27/2017 Class: Call Rx Sig: TAKE 1 TABLET EVERY 6 HOURS NEEDED FOR PAIN Disc: Reason for discontinue is not on file. Disposition: Return in about 3 months (around 09/26/2017). Follow-up and Disposition History Recorded Letter Text [id number] [facility] [address] Narcotics and Controlled Substance Agreement GOAL The purpose of this Agreement is to prevent misunderstandings about certain medicines you will be taking for pain management. It will help both you and your doctor to comply with laws regarding controlled pharmaceuticals. I understand that this Agreement is essential to the trust and confidence necessary in a doctor/patient relationship and that my doctor undertakes to treat me based on this Agreement. AGREEMENT I, Ms. Yared Stallworth, understand that if I break this Agreement, my doctor will stop prescribing these pain-control medicines. In this case, my doctor will taper off the medicine over a period of several days, as necessary, to avoid withdrawal symptoms. A drug-dependence treatment program may be recommended. In certain cases, you may be terminated as a patient. 1. I will communicate fully with my doctor about the character and intensity of my pain, its effect on my daily life, and how well the medicine is helping to relieve the pain. 2. I will not use any illegal controlled substances, including marijuana, cocaine, etc. Random urine and/or serum toxicology screens may be requested; this testing may be unannounced and occur at any time. I agree that I will submit to a blood or urine test if requested by my doctor to determine my compliance with my program of pain control medicine. 3. I will not share, sell or trade my medication with anyone. 4. I will not attempt to obtain any controlled substance from any other doctor, other than a covering physician. 5. I will safeguard my pain medicine from loss or theft. Lost or stolen medicines may not be replaced. 6. I agree that refills of my prescriptions for pain medicine will be made only at the time of an office visit or during regular office hours. No refills will be available on evenings or weekends. 7. I authorize the doctor and my pharmacy to cooperate fully with any city, state or federal law enforcement agency, including this state's Board of Pharmacy, in the investigation of any possible misuse, sale, or other diversion of my medication. I authorize my doctor to provide a copy of this Agreement to my pharmacy. I agree to waive any applicable privilege or right of privacy or confidentiality with respect to these authorizations. Pharmacy: Location: Phone number: 8. I agree that I will use my medicine at a rate no greater than the prescribed rate and that use of my medicine at a greater rate may result in my being without medication for a period of time. 9. If legal authorities have questions concerning treatment, for example, if a patient were obtaining medications at several pharmacies, all confidentiality is waived and the authorities may be given full access to the [facility] Records of narcotic administration. 10. I agree to follow these guidelines and they have been fully explained to me. All of my questions and concerns regarding treatment have been answered. A copy of this document has been given to me. Patient: Date: June 27, 2017 Yared Stallworth [id number] Physician: Date: June 27, 2017 Ramon Espinosa MD Letter Text [address] [place] [address] Narcotics and Controlled Substance Agreement GOAL The purpose of this Agreement is to prevent misunderstandings about certain medicines you will be taking for pain management. It will help both you and your doctor to comply with laws regarding controlled pharmaceuticals. I understand that this Agreement is essential to the trust and confidence necessary in a doctor/patient relationship and that my doctor undertakes to treat me based on this Agreement. AGREEMENT I, Ms. Yared Stallworth, understand that if I break this Agreement, my doctor will stop prescribing these pain-control medicines. In this case, my doctor will taper off the medicine over a period of several days, as necessary, to avoid withdrawal symptoms. A drug-dependence treatment program may be recommended. In certain cases, you may be terminated as a patient. 1. I will communicate fully with my doctor about the character and intensity of my pain, its effect on my daily life, and how well the medicine is helping to relieve the pain. 2. I will not use any illegal controlled substances, including marijuana, cocaine, etc. Random urine and/or serum toxicology screens may be requested; this testing may be unannounced and occur at any time. I agree that I will submit to a blood or urine test if requested by my doctor to determine my compliance with my program of pain control medicine. 3. I will not share, sell or trade my medication with anyone. 4. I will not attempt to obtain any controlled substance from any other doctor, other than a covering physician. 5. I will safeguard my pain medicine from loss or theft. Lost or stolen medicines may not be replaced. 6. I agree that refills of my prescriptions for pain medicine will be made only at the time of an office visit or during regular office hours. No refills will be available on evenings or weekends. 7. I authorize the doctor and my pharmacy to cooperate fully with any city, state or federal law enforcement agency, including this state's Board of Pharmacy, in the investigation of any possible misuse, sale, or other diversion of my medication. I authorize my doctor to provide a copy of this Agreement to my pharmacy. I agree to waive any applicable privilege or right of privacy or confidentiality with respect to these authorizations. Pharmacy: Location: Phone number: 8. I agree that I will use my medicine at a rate no greater than the prescribed rate and that use of my medicine at a greater rate may result in my being without medication for a period of time. 9. If legal authorities have questions concerning treatment, for example, if a patient were obtaining medications at several pharmacies, all confidentiality is waived and the authorities may be given full access to the [facility] Records of narcotic administration. 10. I agree to follow these guidelines and they have been fully explained to me. All of my questions and concerns regarding treatment have been answered. A copy of this document has been given to me. Patient: Date: June 27, 2017 Yared Stallworth [id number] Physician: Date: June 27, 2017 Ramon Espinosa MD Encounter Status:Closed by RAMON ESPINOSA MD on 06/27/17 PROGRESS Observed: 06/27/2017 Status: COMPLETED Source: [place] 1:11 PM [facility] [place] REPOSITORY O ID: [id number] Author: Ramon Espinosa Service: (none) Author Type: Physician Type: Progress Notes Filed: 06/27/2017 5:05 PM Note Text: Chief Complaint Patient presents with: Medication Follow-up HPI Yared Stallworth is a 37 year old female who presents here today for medication follow up. MS: is taking tramadol 50 mg, 2-3 a day. Takes Mobic 15 mg daily Also taking Gabapentin 600 mg TID which she does not feel is helping much. She would like to increase the Gabapentin. She has been having falls. Is not scheduled to see a Neurologist. Hospital thought that her last fall was related to seizure. Pt stated she will be moving into a new apartment which her landlord will allow a ramp to be placed, pt will need to have a letter for this to have wheel chair accessibility and also will need a letter for service dog to help notify people that she has fallen. Diarrhea: controlled with Lomotil, uses PRN. GERD: controlled on Prilisec 20 mg daily. Depression: controlled with Amitriptyline 100 mg at bedtime. She states that the winter months get to her, she wants to be outdoors in the warmer weather. Lump: To left breast, no pain. Noticed it about a week ago. She stated her grandmother had breast cancer and left breast removed. Past medical history, appointments, medications, allergies reviewed. Previous Medical History PAST MEDICAL HISTORY Diagnosis Date - Anemia - Avascular necrosis (HCC) left hip. DO NOT PRESCRIBE CONTROLLED SUBSTANCES-See TE 01/05/16 - Depression - Kidney stones - Multiple sclerosis (HCC) - Transverse myelitis (HCC) 2006 Previous Surgical History PAST SURGICAL HISTORY Procedure Laterality Date - APPENDECTOMY 2009 - KNEE SCOPE,DIAGNOSTIC 1997 Arthroscopy, knee R knee. - LIGATE FALLOPIAN TUBE 2006 Tubal ligation Family History FAMILY HISTORY Problem Relation Age of Onset - Asthma Child - Asthma Child - Breast Cancer Paternal Grandmother - Cancer Father - Diabetes Father - Hypertension Father Patient Allergies ALLERGIES Allergen Reactions - Naprosyn [Naproxen] GI Upset - Zolpidem Mental Status Change Current Medications Current Outpatient Prescriptions on File Prior to Visit: traMADol (ULTRAM) 50 mg tablet TAKE 1 TABLET EVERY 6 HOURS NEEDED FOR PAIN gabapentin (NEURONTIN) 600 mg tablet TAKE 1 TABLET BY MOUTH THREE TIMES DAILY diphenoxylate-atropine (LOMOTIL) 2.5-0.025 mg per tablet TAKE 1 TABLET FOUR TIMES DAILY NEEDED for diarrhea amitriptyline (ELAVIL) 100 mg tablet TAKE 1 TABLET THREE TIMES DAILY ondansetron (ZOFRAN) 4 mg tablet Take 1 tablet by mouth every 8 hours as needed for Nausea/Vomiting. meloxicam (MOBIC) 15 mg tablet Take 1 tablet by mouth once daily. oxybutynin (DITROPAN) 5 mg tablet Take 1 tablet by mouth three times daily. omeprazole (PRILOSEC) 20 mg capsule Take 1 capsule by mouth daily 30 minutes before breakfast Lactobacillus acidophilus (PROBIOTIC) 10 billion cell cap Take 1 capsule by mouth twice daily with meals. No current facility-administered medications on file prior to visit. Social History Social History Marital status: Spouse name: Years of education: Number of children: Social History Main Topics Smoking status: Never Smoker Smokeless status: Never Used Alcohol use: Yes Comment: rare use, New years etc. Drug use: No Sexual activity: Yes Partners with: Male Social History Narrative She drives, lives in house with BF and her 5 children and his 1 child. Works about 45 hours a week. EXAM: BP 122/72 Pulse 74 Resp 16 Wt 80.3 kg (177 lb) BMI 32.37 kg/m2 General Appearance: Well appearing, alert, in no acute distress, well-hydrated, well nourished., Overweight. Lungs: Lungs clear to auscultation. No wheezing, rhonchi, rales. Heart: RRR without murmur, gallop, or rubs. No ectopy. Breast: left; No skin changes or dimpling, no breast felt Health Maintenance List PAP EVERY 5 YEARS due on 02/04/2010 HPV EVERY 5 YEARS due on 02/04/2010 INFLUENZA(Season Ended) due on 11/12/2017 TETANUS due on 12/11/2025 Data reviewed None ASSESSMENT/PLAN: 1. Relapsing remitting multiple sclerosis (HCC) - ICD9: 340, ICD10: G35 (primary diagnosis) Continue with Tramadol 50 mg 2-3 tablets daily Increase Gabapentin to 800 mg TID 2. Diarrhea, unspecified type - ICD9: 787.91, ICD10: R19.7 - DIPHENOXYLATE-ATROPINE 2.5 MG-0.025 MG TABLET 3. Nausea and vomiting, intractability of vomiting not specified, unspecified vomiting type - ICD9: 787.01, ICD10: R11.2 - ONDANSETRON HCL 4 MG TABLET 4. Left hip pain - ICD9: 719.45, ICD10: M25.552 - MELOXICAM 15 MG TABLET 5. Depression, unspecified depression type - ICD9: 311, ICD10: F32.9 Continue current medications. 6. Screening for malignant neoplasm of breast - ICD9: V76.10, ICD10: Z12.31 Mammogram ordered Follow up in 3 months. Ramon Espinosa MD The documentation for this note was completed by Michelle Null Ma acting as scribe for Ramon Espinosa MD. June 27, 2017 1:12 PM. 12 LEAD ELECTROCARDIOGRAM Observed: 05/17/2017 Status: F Source: [place] 2:00 PM [facility] REPOSITORY [facility] Cardiovascular Services [address] [place] [address] 12 Lead EKG 05/11/172027 MR#: [id number] Acct: [id number] Name: YARED STALLWORTH Rep #: [id number] : 1980 37 From: Tyson Simon MD Attending Dr: Status: DEP ER Ordering Dr: Sonu Hale DO Date: 05/11/17 Location: ED Sex: F C Admitted: Test Reason : SEIZURE Blood Pressure : / mmHG Vent. Rate : 067 BPM Atrial Rate : 067 BPM P-R Int : 230 ms QRS Dur : 096 ms QT Int : 430 ms P-R-T Axes : 036 048 035 degrees QTc Int : 454 ms Sinus rhythm with 1st degree A-V block Otherwise normal ECG Confirmed by TYSON SIMON MD ([id number]), photographic editor CELESTINE CORDERO ([id number]) on 05/17/2017 2:00:29 PM Referred By: BRIDGETT Confirmed By:TYSON SIMON MD 05/17/17 1400 Date Tyson Simon MD CC: Sonu Hale DO; Ramon Espinosa MD Signed EMERGENCY DEPARTMENT Observed: 05/12/2017 Status: F Source: [place] SUMMARY 4:32 PM [facility] REPOSITORY [facility] Medical Records Department [address] [place] [address] Emergency Department Summary 05/11/170 MR#: [id number] Acct: [id number] Name: YARED STALLWORTH Rep #: [id number] : 1980 37 From: Sonu Hale DO PCP: Ramon Espinosa MD Status: DEP ER - ER Visit Summary Date of Service: 05/11/17 Chief Complaint: Possible seizure History of Present Illness: The patient is a 37 F who states that recently she has been began having seizures. She states tonight she hurts people talking on the hallway and she thinks she had a seizure because she collapsed against the door and tingling stand injuring her right shoulder. Patient states that she came to talking to her. She feels nauseated has a headache. She notes right posterior shoulder pain. She denies any loss of bowel or bladder control. There is been no biting of the tongue. She sees Dr. Espinosa has appointment in the next couple days. I would encourage providers to read her prior notes. Physical Examination: Afebrile vital signs are stable Gen: Well-nourished well-developed Head: Normocephalic atraumatic Eyes: Perrl EOMI ENT: TMs clear no rhinorrhea moist mucous membranes Neck: Supple no lymphadenopathy no JVD nontender CVS: Regular rate rhythm no murmurs normal S1-S2 Respiratory: No distress clear to auscultation bilaterally chest nontender Abdomen: Soft nontender nondistended normal bowel sounds no masses Back: Nontender Extremity: Tender to palpation in the posterior right shoulder without deformity or obvious dislocation. Neurovascular intact distally Skin: Normal color no rash Neuro: alert orientated 3 CN II-XII intact normal strength sensation reflexes gait cerebellar Psych: Normal affect normal mood Test Results: Shoulder films were negative for acute. EKG shows a sinus rhythm at a rate of 67 with a QTC of 454. Emergency Department Course and Treatment: She received a dose of Tylenol and Zofran. She will be discharged home with supportive care. She is to follow- up with her doctor as scheduled. Impression: 1. Reported syncope 2. Right shoulder pain This note was generated with [employer] dictation software. It may contain incorrect words, spelling, and punctuation that were not noted in review of the chart prior to signing ED Disposition - Plan for ED Patient: Disposition: Home or Assisted Living Chief Complaint: Seizure Instructions: ED Contusion Shoulder Referrals: Ramon Espinosa MD [Primary Care Provider] - Keep Fe appointment What to do if you have Problems For any increased pain, shortness of breath, bleeding, nausea or vomiting, chest pain, or any unexpected problems, contact your Primary Care Provider. Call [facility] ([phone]) or report to the closest Emergency Room. Call 911 if necessary. 05/12/17 1632 <Electronically signed by Sonu Hale DO> Date Sonu Hale DO Cosigner Signature (If Indicated): Date CC: Ramon Espinosa MD SHOULDER MIN 2 VIEWS Observed: 05/11/2017 Status: F Source: [place] 7:39 PM [facility] REPOSITORY [facility] Imaging Services [address] [place] [address] Shoulder min 2 Views MR#: [id number] Acct: [id number] Name: YARED STALLWORTH Rep #: [id number] : 1980 F 37 From: Elin Mckoy MD PCP: Ramon Espinosa MD Status: REG ER Study: Shoulder min 2 Views Date of Exam: 05/11/17 Exam# [id number] Ordering Dr: Sonu Hale DO STUDY: X-RAY - RIGHT SHOULDER REASON FOR EXAM: Female, 37 years old. Right shoulder pain after falling. TECHNIQUE: 4 view(s) of the shoulder. COMPARISON: None. FINDINGS: Normal glenohumeral articulation. Normal acromioclavicular joint. Normal acromion. Normal humeral head and visualized proximal humerus. The soft tissue structures are unremarkable. There is no demonstrated fracture. Normal visualized pulmonary apex. RAD/Shoulder min 2 Views IMPRESSION: Normal x-ray examination of the shoulder. Electronically Signed: Elin Mckoy MD at 20:32 EST , Service support , CC: Sonu Hale DO; Ramon Espinosa MD Upper Cutter Out: Signed OBSOLETE Observed: 04/13/2017 Status: COMPLETED Source: [place] 12:00 AM [facility] REPOSITORY Refill (FAMPWS) YARED STALLWORTH ([id number]) 1980 F Date Time Provider Department 04/13/17 RAMON ESPINOSA During your visit today, we recorded the following information about you: Sandip Sisi Pandey 04/13/2017 1:53 PM Signed Patient has been identified by name and date of : Yes Pending Prescriptions Disp Refills TRAMADOL 50 MG TABLET 20 tablet Sig: TAKE 1 TABLET EVERY 6 HOURS KAYELEN Class: C-IV ALBINA: Yes RX INSTRUCTIONS: Patient aware RX will be sent to pharmacy. No need to notify patient. Last office visit:03/02/17 Next office visit:none scheduled Sandip Espinosa MD 04/13/2017 2:57 PM Signed OK to refill as ordered MD Michelle Billy Ma 04/13/2017 2:59 PM Signed The following prescriptions have been [facility] 04/13/2017 at 2:58 PM by Michelle Null Ma. I spoke with VM in the pharmacy. Signed Prescriptions Disp Refills traMADol (ULTRAM) 50 mg tablet 20 tablet 1 Sig: TAKE 1 TABLET EVERY 6 HOURS KAYLEEN Class: C-IV ALBINA: No Authorizing Provider: RAMON ESPINOSA Allergies As of Date: 04/13/2017 Noted Allergy Reaction NAPROSYN (NAPROXEN) 11/27/2014 8 - GI Upset ZOLPIDEM 12/26/2011 1 - Mental Status Change Date Reviewed: 03/02/2017 Reviewed by: Kayleigh Marc Ma - Fully Assessed Reason for Visit: Refill Request [94] Primary Visit Diagnosis:Avascular necrosis of bone of left hip (HCC) [M87.052] Order(s):traMADol (ULTRAM) 50 mg tabletTAKE 1 TABLET EVERY 6 HOURSDisp: 20 tabletRfl: 1 Prescriptions as of 04/13/2017 Sig: TRAMADOL 50 MG TABLET TAKE 1 TABLET EVERY 6 HOURS DIPHENOXYLATE-ATROPINE 2.5 MG* TAKE 1 TABLET FOUR TIMES CAMRYN* AMITRIPTYLINE 100 MG TABLET TAKE 1 TABLET THREE TIMES SHARMIN* ONDANSETRON HCL 4 MG TABLET Take 1 tablet by mouth every * MELOXICAM 15 MG TABLET Take 1 tablet by mouth once d* OXYBUTYNIN CHLORIDE 5 MG TABL* Take 1 tablet by mouth three * OMEPRAZOLE 20 MG CAPSULE,IFRAH* Take 1 capsule by mouth daily* GABAPENTIN 600 MG TABLET Take 1 tablet by mouth three * LACTOBACILLUS ACIDOPHILUS 10 * Take 1 capsule by mouth twice* Problem List As Of Date 04/13/2017 Noted Resolved Relapsing remitting multiple sclerosis (HCC) [G*INVALID FOR* Anemia, iron deficiency [D50.9] INVALID FOR* Kidney stones [N20.0] INVALID FOR* Multiple sclerosis (HCC) [G35] Depression [F32.9] Avascular necrosis of bone of left hip (HCC) [M*INVALID FOR* Frequent falls [R29.6] INVALID FOR* Avascular necrosis (HCC) [M87.00] More... Impaction of colon (HCC) [K56.49] INVALID FOR*01/12/2017 Prescriptions ordered this encounter Disp Refills Start End TRAMADOL 50 MG TABLET 20 t* 1 04/13/2017 04/20/2017 Class: Call Rx Sig: TAKE 1 TABLET EVERY 6 HOURS Medications Discontinued During This Encounter traMADol (ULTRAM) 50 mg tablet 20 t* 2 03/22/2017 04/13/2017 Class: Call Rx Sig: TAKE 1 TABLET EVERY 6 HOURS NEEDED FOR PAIN Disc: Reason for discontinue is not on file. Encounter Status:Closed by MICHELLE NULL MA on 04/13/17 ALLERGIES ALLERGIES DATE TYPE / CODE NAME / CODE REACTION SEVERITY SOURCE 04/02/2018 Drug naproxen/[id number] Hives Unknown [facility] Allergy/416 2380(RXNORM) [facility] 430064(SNOM Repository ED CT) 11/27/2014 DRUG NAPROXEN GI UPSET [address] [address]713(SNOM Repository ED CT) 12/26/2011 DRUG ZOLPIDEM Mental Chg [address] 000852(SNOM Repository ED CT) ENCOUNTERS ENCOUNTERS ADMIT/DISCHARGE ACCOUNT NUMBER ADMITTING ENCOUNTER LOCATION SOURCE CLASS 04/04/2018/04/04/19 [id number] Emergency BBuilding:ER Micah [facility] Repository 04/02/2018/04/02/19 [id number] Emergency [address] ding:ED Repository 03/23/2018/03/29/19 [id number] MAXIMUS COFFMAN, Inpatient ABuilding:IL Micah REDDING JR. Encounter 6ERoom: [facility] Repository 03/23/2018/03/23/19 [id number] Emergency BBuilding:ER Micah [facility] Repository 03/22/2018/03/22/19 [id number] Emergency [address] ding:ED Repository 03/20/2018/03/20/19 [id number] Emergency [address] ding:ED Repository 03/15/2018/03/17/19 [id number] White, Inpatient Lopez Lopez 19 Jessica Encounter [facility] ding:URo Repository : KOS940Wmy: 1 03/15/2018 [id number] White, Ambulatory BMSBuilding: [place] Jessica BMS.[facility] Repository 03/15/2018 [id number] White, Ambulatory BMSBuilding: [place] Jessica BMS.[facility]ly [facility] Repository 03/15/2018 [id number] Ambulatory BMSBuilding: [place] BMS.[facility] Repository 03/15/2018/03/15/19 [id number] Emergency [address] ding:ED Repository 01/31/2018/02/01/20 [id number] Emergency [place] ding:ED Repository 01/11/2018/01/13/20 [id number] Emergency [address] ding:ED Repository 12/19/2017/12/21/19 [id number] Ambulatory [address] Repository 11/17/2017/11/20/19 [id number] Agyepong, Inpatient [place] [address] ding:EC6Frqo Repository : OO476Elr: 1 11/17/2017 [id number] Agyepong, Ambulatory BMSBuilding: [place] Darek BMS.[facility]ly [facility] Repository 11/17/2017 [id number] Agyepong, Ambulatory BMSBuilding: [place] Darek BMS.[facility]ly [facility] Repository 11/17/2017 [id number] Agyepong, Ambulatory BMSBuilding: [place] Darek BMS.[facility]ly [facility] Repository 09/21/2017/09/23/19 [id number] Ambulatory [address] Repository 08/01/2017/08/04/19 [id number] Ambulatory [address] Repository 07/22/2017/07/23/19 [id number] Emergency [address] ding:ED Repository 07/07/2017/07/08/19 [id number] Emergency [address] ding:ED Repository 06/30/2017/07/01/19 [id number] Ambulatory [address] Repository 06/30/2017/07/02/19 [id number] Ambulatory [address] Repository 06/27/2017/04/16 [id number] Ambulatory [address] Repository 06/27/2017/06/29/19 [id number] Ambulatory [address] Repository 05/11/2017/05/11/19 [id number] Emergency [place] Lopez [facility] ding:ED Repository PAYERS PAYERS ENCOUNTER GUARANTOR PAYER SUBSCRIBER SOURCE 04/04/2018 YARED Betty Primary [facility]ARED [facility] [id number] Repository MARKET Number: [address] [place] [id number] [place], [place] [address]Coj: (983) Date:2018-04-04Tel: [phone] [phone] (HP)Tel: [phone]) Name:[address] () () [place], [place] [address] () [address]RX: 04/02/2018 YARED Hernández [id number] Primary YARED Hernández [place] 1/2 NOLD Insurance[facility]: [facility] [id number] Hospital [address]Lxo: (330) Number: Repository [phone] () [id number] Date:7924-18-25[address], [place] [address]LN: 04/02/2018 Secondary NOT GIVENUNK [place] Insurance:SELF PAY [facility] Number: Effective Repository Date:2018-04-02 03/23/2018 YARED Hernández Primary [facility]ARED [facility]: [facility] S [facility] [id number] Repository MARKET Number: [address] [place] [id number] [place], [place] [address]Rdh: Date:2018-03-23Tel: [phone] [id number] [phone] (HP)Tel: ([phone]) Name:[address] (HP) (WP) [address], [place] [address] (WP) [address]LA: 03/23/2018 YARED L Primary YARED Hern[facility]dez [facility]: [facility]: [facility] S [facility] [id number] Repository MARKET Number: [address] [place], [place] [id number] [place], [place] [address]Dnu: Date:2018-03-23Tel: [phone] [id number] ([phone] (HP)Tel: ([phone]) Name:[address] (HP) (WP) [place], [place] [address] (WP) [id number]: 03/22/2018 YARED [id number] Primary YARED Hernández [place] 1/2 NOLD Insurance[facility]: [facility] [id number] Hospital [address]Ciu: (330) Number: Repository [phone] () [id number] Date:3621-49-08YZ [address] [address]BR: 03/22/2018 Secondary NOT GIVENUNK [place] Insurance:SELF PAY [facility] Number: Effective Repository Date:2018-03-22 03/20/2018 YARED GOLDKS439 Primary YARED Hernández [place] 1/2 NOLD [facility]: [facility] [id number] [address]Tel: (330) Number: Repository [phone] () [id number] Date:[id number] [address] [place] [address]WZ: 03/20/2018 Secondary NOT GIVENUNK [place] Insurance:SELF PAY [facility] Number: Effective Repository Date:2018-03-20 03/15/2018 YARED Hernández [id number] Primary YARED Hernández [place] 1/2 NOLD Insurance:[facility]SDOB: [facility] [id number] Hospital [address]Nnx: (330) Number: Repository [phone] () [id number] Date:[id number] [address] [place] [address]YR: 03/15/2018 Secondary NOT GIVENUNK [place] Insurance:SELF PAY [facility] Number: Effective Repository Date:2018-03-15 03/15/2018 YARED Hernández [id number] Primary YARED Hernández [place] 1/2 NOLD Insurance:[facility] [facility] [id number] Hospital 08187Jsx: (330) Number: Repository [phone] () [id number] Date:8810-65-16UZ [address] [place] [phone]: 03/15/2018 Secondary NOT GIVENUNK Lopez Insurance:SELF PAY [facility] Number: Effective Repository Date:2018-03-15 03/15/2018 YARED Hernández [id number] Primary YARED Hernández [place] 1/2 NOLD Insurance:[facility] [id number] Hospital 33523Xqd: (330) Number: Repository [phone] () [id number] Date:5574-76-11LW [address] [place] [phone]: 03/15/2018 Secondary NOT GIVENUNK [place] Insurance:SELF PAY [facility] Number: Effective Repository Date:2018-03-15 03/15/2018 YARED Hernández [id number] Primary YARED [place] 1/2 NOLD Insurance:[facility]: [facility] [id number] Hospital 35730Ocv: (330) Number: Repository [phone] () [id number] Date:6114-67-48RK [address] [place] [phone]: 03/15/2018 Secondary NOT GIVENUNK [place] Insurance:SELF PAY [facility] Number: Effective Repository Date:2018-03-15 03/15/2018 YARED [id number] Primary YARED Hernández [place] 1/2 NOLD Insurance:PARAMOUNT HICKSDOB: [facility] [id number] Hospital 40465Kbn: (330) Number: Repository [phone] () [id number] Date:6704-03-31FN [address] [place] [phone]: 03/15/2018 Secondary NOT GIVENUNK [place] Insurance:SELF PAY [facility] Number: Effective Repository Date:2018-03-15 01/31/2018 YARED [id number] Primary YARED Hernández [place] 1/2 NOLD Insurance:PARAMOUNT HICKSDOB: [facility] [id number] Hospital 92543Wtf: (330) Number: Repository [phone] () [id number] Date:8706-16-32DH [address] [place] [phone]: 01/31/2018 Secondary NOT GIVENUNK [place] Insurance:SELF PAY [facility] Number: Effective Repository Date:2018-01-31 01/11/2018 YAERD Hernández Primary YARED Marroquin [facility] Insurance:PARAMOUNT HICKSDOB: Community [facility] [id number] Hospital [address] Number: [place]ository [place] [address]Ujl: [id number] Date:0364-12-84XO [address] () [place] [address]GK: 01/11/2018 Secondary NOT GIVENUNK [place] Insurance:SELF PAY [facility] Number: Effective Repository Date:2018-01-11 11/17/2017 Yared Hernández [place]ared [place] Insurance:PARAMOUNT HicksDOB: Community Job Family ADVANTAGE [facility] [id number] Hospital ServicePo Box Number: [place]ository [place] [id number]: (330) Date:9202-51-41BN [phone] () [place], [place] [address]VT: 11/17/2017 Secondary NOT GIVENUNK [place] Insurance:SELF PAY [facility] Number: Effective Repository Date:2017-11-16 11/17/2017 Yared hernández Primary Yared [place]ty [place] Insurance:PARAMOUNT HicksDOB: [facility] Job Family [facility] [id number] Hospital ServicePo Box Number: Repository [place] [id number]: (330) Date:1158-58-51JG [phone] () [place], [place] [address]ZW: 11/17/2017 Secondary NOT GIVENUNK [place] Insurance:SELF PAY [facility] Number: Effective Repository Date:2017-11-17 11/17/2017 Yared hernández Primary Yared betty [place] [address] Insurance:PARAMOUNT HicksDOB: [facility] Job Family [facility] [id number] Hospital ServicePo Box Number: Repository [place] [id number]: (330) Date:8570-05-01VR [phone] () [place] [address]LY: 11/17/2017 Secondary NOT GIVENUNK [place] Insurance:SELF PAY [facility] Number: Effective Repository Date:2017-11-17 11/17/2017 Yared hernández Primary Yared betty [place] [address] Insurance:PARAMOUNT HicksDOB: [facility] Job Family ADVANTAGE [facility] [id number] Hospital ServicePo Box Number: Repository [place] [id number]: (330) Date:4055-76-90ZO [phone] (HP) [place], [place] [address]LA: 11/17/2017 Secondary NOT GIVENUNK [place] Insurance:SELF PAY [facility] Number: Effective Repository Date:2017-11-17 07/22/2017 Yared hernández Primary Yared [place] Insurance:PARAMOUNT HicksDOB: Community Job Family ADVANTAGE [facility] [id number] Hospital ServicePo Box Number: [place]ository [place] [id number]: (330) Date:5763-99-99QR [phone] (HP) [place], [place] [address]PL: 07/22/2017 Secondary NOT GIVENUNK [place] Insurance:SELF PAY [facility] Number: Effective Repository Date:2017-07-22 07/07/2017 Yared hernández Primary Yared [place] Insurance:PARAMOUNT HicksDOB: Community Job Family ADVANTAGE [facility] [id number] Hospital ServicePo Box Number: [place]ository [address] [id number]: (330) Date:0950-80-54AT [phone] (HP) [address], [place] [address]DD: 07/07/2017 Secondary NOT GIVENUNK [place] Insurance:SELF PAY [facility] Number: Effective Repository Date:2017-07-07 05/11/2017 Yared hernández Primary Yared [place] Insurance:PARAMOUNT HicksDOB: Community Job Family ADVANTAGE [facility] [id number] Hospital ServicePo Box Number: [place]ository [address] [id number]: (330) Date:9620-52-29CD [phone] (HP) [address], [place] [address]QS: 05/11/2017 Secondary NOT GIVENUNK [place] Insurance:SELF PAY [facility] Number: Effective Repository Date:2017-05-11
== END 2018-04-02 11:00 | disposition home or self-care (01) ==
PROVIDERS: Emergency Provider Emergency Medicine; Family Provider Family Medicine; PCP Family Medicine
DX: S22.42XD Multiple fractures of ribs, left side, subsequent encounter for fracture with routine healing (principal); R56.9 Unspecified convulsions; G35 Multiple sclerosis; Z79.2 Long term (current) use of antibiotics; Z79.899 Other long term (current) drug therapy; Y09 Assault by unspecified means
CPT/HCPCS: 71101; 96372; 99285

== ENCOUNTER 2018-04-25 11:39 | Emergency (ER) | payer MEDICAID, SELFPAY ==
[2018-04-25 11:41] VITALS: BP 133/98; PULSE 122; RESP 20; TEMP 36.8; O2SAT 99; BMI 32.9
[2018-04-25 11:49] VITALS: BP 144/86; PULSE 114; RESP 18; TEMP 36.8; O2SAT 95
[2018-04-25] MEDS: Ondansetron 4 MG/2 ML Vial IV (12:02)
[2018-04-25] MEDS: Loperamide 2 MG Capsule 4 MG PO (12:02)
[2018-04-25] MEDS: Morphine 4 MG/ML Syringe IV (12:02)
[2018-04-25] MEDS: 0.9% Normal Saline 1,000 ML 1000 ML IV ×2 (12:02→12:57)
[2018-04-25] MEDS: Dicyclomine 10 MG Capsule 20 MG PO (12:03)
[2018-04-25 12:27] VITALS: BP 144/86; PULSE 114; RESP 18; TEMP 36.8; O2SAT 98
--- NOTE | 2018-04-25 12:50 | NURSING ---
CHEMISTRIES HEMOLIZED, PER [facility]
[2018-04-25] MEDS: Loperamide 2 MG Capsule PO (12:57)
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
[2018-04-25 13:31] LABS: Anion Gap 6 (5-15); BUN 12 mg/dL (7-18); BUN/Creat Ratio 15.2 RATIO (10-20); Calcium,Total 7.7 mg/dL (8.5-10.1); Chloride 110 mmol/L (98-107); Creatinine, Serum 0.79 mg/dL (0.55-1.02); EST Glomerular Filtration Rate 87 mL/min (>60); Est Glom Filt Rate - Afr Amer 105 mL/min (>60); Estimated Creatinine Clearance 76.37 ml/min; Glucose 88 mg/dL (74-106); Potassium 4.5 mmol/L (3.5-5.1); Sodium Level 141 mmol/L (136-145)
[2018-04-25 14:26] VITALS: PULSE 100; RESP 17; O2SAT 99
== END 2018-04-25 14:27 | disposition home or self-care (01) ==
PROVIDERS: Emergency Provider Emergency Medicine; Family Provider Family Medicine; PCP Family Medicine
DX: R19.7 Diarrhea, unspecified (principal); E86.0 Dehydration; Z79.899 Other long term (current) drug therapy
CPT/HCPCS: 80048; 96361; 96374; 96375; 99285; J7030; A4216; J2405

== ENCOUNTER 2018-04-25 19:16 | Emergency (ER) | payer MEDICAID, SELFPAY ==
[2018-04-25 11:41] VITALS: BMI 32.9
[2018-04-25 19:31] VITALS: BP 117/86; PULSE 107; RESP 20; TEMP 36.8; O2SAT 98; BMI 35.6
--- NOTE | 2018-04-25 19:45 | ED.RN ---
PT WITH SEIZURE LASTING 90 SECONDS. PT PLACED ON 15L NON REBREATHER, TURNED TO SIDE. MAINTAINED PATENT AIRWAY NO NEED FOR SUCTIONING. PT LETHARGIC BUT TALKING A+OX3. SEIZURE PADS IN PLACE AT TIME OF SEIZURE. DR. PITTS TO BEDSIDE.
--- NOTE | 2018-04-25 19:47 | CT_ITS ---
STUDY: CT BRAIN WITHOUT CONTRAST REASON FOR EXAM: Female, 38 years old. Headache. RADIATION DOSAGE (If Supplied By Facility): CTDIvol = ( 60.81 ) mGy, DLP = ( 998.67 ) mGycm TECHNIQUE: Transaxial CT imaging of the brain was performed without administration of intravenous contrast material. Individualized dose optimization techniques were used for this CT. COMPARISON: March 20, 2018. FINDINGS: Normal soft tissue structures. Normal calvarium. Normal size ventricles and extra-axial spaces for the patient's age. Normal white matter tracts of the cerebral hemispheres. Normal basal ganglia and thalami. Normal brainstem. Normal cerebellum. There is no intracranial hemorrhage. There are no findings of an acute ischemic infarction. Mucosal thickening of the left maxillary sinus and ethmoid air cells. CT/Brain/Head without Contrast IMPRESSION: Normal unenhanced CT scan of the brain. Stable appearance. Electronically Signed: Jovanni Carter MD at 21:13 EST , Service support ,
[2018-04-25] MEDS: LORazepam 2 MG/ML Syringe 1 MG IV (19:51)
[2018-04-25] MEDS: 0.9% Normal Saline 1,000 ML 1000 ML IV (19:52)
[2018-04-25 20:01] LABS: Absolute Lymphocyte Count 2.88 X10^3/ul (0.83-4.51); Absolute Neutrophil Count 4.4 X10^3/uL (2.0-7.7); Basophil# 0.02 X10^3/uL; Basophil% 0.2 % (0-1); Eosinophil# 0.43 X10^3/uL; Eosinophils% 5.2 % (0-5); Hematocrit 34.9 % (37-47); Hemoglobin 11.3 g/dl (12.0-15.0); Lymphocyte # 2.88 X10^3/ul (4.0); Lymphocyte % 34.8 % (19-41); Mean Corp Hgb Conc 32.4 g/gl (32-36); Mean Corpuscular Hgb 32.1 pg (27.0-32.0); Mean Corpuscular Volume 99.1 fL (81-99); Mean Platelet Vol. 9.1 fl (6.2-12.0); Monocyte# 0.52 X10^3/uL; Monocyte% 6.3 % (0-10); Neutrophil % 53.1 % (47-70); Platelet Count 284 K/mm3 (150-450); RBC Distribution Width SD 46.4 fl (35.1-43.9); Red Blood Count 3.52 M/mm3 (4.2-5.4); White Blood Count 8.3 K/mm3 (4.4-11.0)
[2018-04-25 20:02] LABS: POSITIVE COUNT NO; POSITIVE DIFFERENTIAL NO; POSITIVE MORPHOLOGY NO
[2018-04-25 20:05] LABS: Anion Gap 8 (5-15); BUN 8 mg/dL (7-18); BUN/Creat Ratio 11.1 RATIO (10-20); Chloride 111 mmol/L (98-107); Creatinine, Serum 0.72 mg/dL (0.55-1.02); EST Glomerular Filtration Rate 96 mL/min (>60); Est Glom Filt Rate - Afr Amer 116 mL/min (>60); Estimated Creatinine Clearance 83.79 ml/min; Glucose 127 mg/dL (74-106); Potassium 3.8 mmol/L (3.5-5.1); Sodium Level 141 mmol/L (136-145)
[2018-04-25 20:07] LABS: Bacteria 0 SEEN /hpf (None Seen); Mucous, Urine 0 SEEN /hpf (<or=2+); Red Blood Cells-Urine 0 SEEN /hpf (0-5); Squamous Epithelial Cells - UA 0 SEEN /hpf (5-10); White Blood Cells 0 SEEN /hpf (0-5)
[2018-04-25 20:08] LABS: Color, Urine Straw (Yellow); Glucose, Dipstick Normal (Normal); Ketone-Dipstick Negative (Negative); Leukocyte Esterase-Dipstick 25 /ul (Negative); Nitrite-Dipstick Negative (Negative); Occult Blood-Urine Negative /ul (Negative); Protein-Dipstick Negative (Negative); Urine Bilirubin Dipstick Negative (Negative); Urine Clarity Clear (Clear); Urine Urobilinogen Normal (Normal); Urine pH 6.5 (5.0 - 8.0)
[2018-04-25 20:33] LABS: Amphetamine Urine VISTA NEGATIVE (<1000 ng/mL); Barbiturate Urine VISTA NEGATIVE (< 200 ng/mL); Benzodiazepine Urine VISTA NEGATIVE (< 200 ng/mL); Cocaine Urine VISTA NEGATIVE (< 300 ng/mL); Ecstacy Urine VISTA NEGATIVE (< 500 ng/mL); Methadone Urine VISTA NEGATIVE (< 300 ng/mL); PCP Urine VISTA NEGATIVE (< 25 ng/mL); THC Urine VISTA NEGATIVE (< 50 ng/mL); Vista UDS pH Range 6
--- NOTE | 2018-04-25 21:04 | ED.VISSUMM ---
- ER Visit Summary Date of Service: 04/25/18 Chief Complaint: [Seizure] History of Present Illness: The patient is a 38 F [presents to the emergency department complaint of seizures that started this afternoon. Patient's had multiple episodes of shaking. 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 EMS also noted that she would stop twitching upon prompting. Patient was seen earlier in the day in the emergency department for diarrhea. Patient planes of a headache. She denies any illicit drug use although her daughter who has power of professor of rhetoric of patient believes that patient might be using heroin possibly. Patient denies this. Patient currently staying at [facility]. Patient tells me she is been compliant with her seizure medication. Patient does not have a neurologist and normally sees her primary care physician Dr. Giancarlo Espinosa. Patient tells me she has a history of MS although her daughter states that she does not believe this either as there is been no documentation in any of her medical record that she was ever diagnosed with MS.] Patient does complain of a headache. Physical Examination: [HEENT-PERRLA, EOMI. Cranial nerves II through XII grossly intact. TMs clear. Mucous membranes moist. No adenopathy. No bite wounds are noted to her tongue or mouth. Cardiovascular-regular rate and rhythm without murmur or ectopy Lungs-clear to auscultation, chest wall stable without crepitus or subcu emphysema Abdomen-normoactive bowel sounds, soft, nontender, no rebound or rigidity, no peritoneal signs. Neuro azqr-vazwec-rpgb and heel arredondo testing within normal limits, negative Romberg, negative , Fundi benign. Extremities-intact ?4, normal range of motion, normal pulses, atraumatic] Test Results: [CT scan of the brain without contrast was unremarkable. CBC with differential showing of 8.3, hemoglobin 11.3, hematocrit 35, placed 284. Chemistries unremarkable. Urinalysis was normal. Toxicology screen was positive for opiates.] Emergency Department Course and Treatment: [Prior to my evaluation of the patient I was called to the room as patient was seizing patient was noted to have whole body tonic-clonic like activity however I was able to speak to her and she stopped seizing and immediately was able to answer all questions appropriately without any postictal state. Patient was given Ativan 1 mg IV.] Treatment Plan: [Patient will be referred to neurology rn transition for follow-up.] Disposition: Discharged home in stable condition [] Impression: [Pseudoseizures Cephalgia] This note was generated with [employer] software. It may contain incorrect words, spelling, and punctuation that were not noted in review of the chart prior to signing ED Disposition - Plan for ED Patient: Referrals: Giancarlo Espinosa MD [Primary Care Provider] -
--- NOTE | 2018-04-25 21:07 | ED.DCSUM_ITS ---
- ER Visit Summary Date of Service: 04/25/18 Chief Complaint: [Seizure] History of Present Illness: The patient is a 38 F [presents to the emergency department complaint of seizures that started this afternoon. Patient's had multiple episodes of shaking. 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 EMS also noted that she would stop twitching upon prompting. Patient was seen earlier in the day in the emergency department for diarrhea. Patient planes of a headache. She denies any illicit drug use although her daughter who has power of erisa attorney of patient believes that patient might be using heroin possibly. Patient denies this. Patient currently staying at [facility]. Patient tells me she is been compliant with her seizure medication. Patient does not have a neurologist and normally sees her primary care physician Dr. Giancarlo Espinosa. Patient tells me she has a history of MS although her daughter states that she does not believe this either as there is been no documentation in any of her medical record that she was ever diagnosed with MS.] Patient does complain of a headache. Physical Examination: [HEENT-PERRLA, EOMI. Cranial nerves II through XII grossly intact. TMs clear. Mucous membranes moist. No adenopathy. No bite wounds are noted to her tongue or mouth. Cardiovascular-regular rate and rhythm without murmur or ectopy Lungs-clear to auscultation, chest wall stable without crepitus or subcu emphysema Abdomen-normoactive bowel sounds, soft, nontender, no rebound or rigidity, no peritoneal signs. Neuro apri-tagdjn-grgs and heel arredondo testing within normal limits, negative Romberg, negative , Fundi benign. Extremities-intact ?4, normal range of motion, normal pulses, atraumatic] Test Results: [CT scan of the brain without contrast was unremarkable. CBC with differential showing of 8.3, hemoglobin 11.3, hematocrit 35, placed 284. Chemistries unremarkable. Urinalysis was normal. Toxicology screen was positive for opiates.] Emergency Department Course and Treatment: [Prior to my evaluation of the patient I was called to the room as patient was seizing patient was noted to have whole body tonic-clonic like activity however I was able to speak to her and she stopped seizing and immediately was able to answer all questions appropriately without any postictal state. Patient was given Ativan 1 mg IV.] Treatment Plan: [Patient will be referred to neurology well control instructor for follow-up.] Disposition: Discharged home in stable condition [] Impression: [Pseudoseizures Cephalgia] This note was generated with [employer]ation software. It may contain incorrect words, spelling, and punctuation that were not noted in review of the chart prior to signing ED Disposition - Plan for ED Patient: Referrals: Giancarlo Espinosa MD [Primary Care Provider] -
--- NOTE | 2018-04-25 21:08 | ED.DEP ---
ED Disposition - Plan for ED Patient: Instructions: ED Stress React, ED Seizure Recurrent Referrals: Giancarlo Espinosa MD [Primary Care Provider] - 3-5 Days Ruddy Seth MD [STAFF PHYSICIAN] - 5-7 Days
[2018-04-25 21:20] VITALS: BP 110/73; PULSE 98; RESP 17; O2SAT 98
== END 2018-04-25 21:42 | disposition home or self-care (01) ==
LOC: ED 20:18
PROVIDERS: Emergency Provider Emergency Medicine; Family Provider Family Medicine; PCP Family Medicine
DX: R56.9 Unspecified convulsions (principal); R51 Headache; Z79.899 Other long term (current) drug therapy; R19.7 Diarrhea, unspecified; E86.0 Dehydration
CPT/HCPCS: 70450; 80048; 80307; 81001; 85025; 96361; 96374; 96375; 99285; J7030; A4216; J2405

== ENCOUNTER 2018-05-18 18:01 | Emergency (ER) | payer MEDICAID, SELFPAY ==
[2018-05-18 18:02] VITALS: BP 118/79; PULSE 104; RESP 17; TEMP 36.7; O2SAT 100; BMI 31.1
--- NOTE | 2018-05-18 20:47 | CT_ITS ---
STUDY: CT ABDOMEN AND PELVIS WITHOUT CONTRAST REASON FOR EXAM: Female, 38 years old. Nausea vomiting and diarrhea. History of renal stones. RADIATION DOSAGE (If Supplied By Facility): CTDIvol = ( 10.38 ) mGy, DLP = ( 529.05 ) mGycm TECHNIQUE: Transaxial images were obtained from the dome of the diaphragm to the symphysis pubis without oral contrast, and without intravenous contrast. Sagittal and coronal images were reconstructed. Individualized dose optimization techniques were used for this CT. COMPARISON: None. FINDINGS: The visualized lung bases are unremarkable. The visualized portions of the heart are within normal limits. Normal liver. Normal gallbladder and extrahepatic biliary system. Normal spleen. Normal pancreas. Normal bilateral adrenal glands. Both kidneys again show very numerous nonobstructing stones in all segments, measuring as much as 4 mm. No hydronephrosis. Evaluation of the GI tract is limited by absence of oral contrast. Cannot exclude stomach wall thickening. No dilated loops of bowel or evidence for obstruction. Cannot exclude segmental thickening of the freire of the small or large bowel. Cannot exclude enteritis or colitis. Moderate diffuse fecal retention. Diverticulosis without definite diverticulitis. Appendix within normal limits. Normal abdominal aorta. Normal inferior vena cava. Normal retroperitoneum. Normal urinary bladder. Normal visualized uterus. IUD in typical location. Normal abdominal wall. Normal osseous structures. CT/Abdomen/Pelvis without Cont IMPRESSION: No definite acute abnormality. Very numerous bilateral renal stones in all segments. No hydronephrosis. Electronically Signed: Danny Durán MD at 21:43 EST , Service support ,
--- NOTE | 2018-05-18 20:51 | ED.DCSUM_ITS ---
- ER Visit Summary Date of Service: 05/18/18 Chief Complaint: Headache and abdominal pain History of Present Illness: The patient is a 38 F who presents with headache and abdominal pain that is been getting worse over the past 4 days. Patient states her headache is sharp and over the frontal area. Patient states the pain is constant. Patient states she has been having some nausea, vomiting, and diarrhea. Patient states she has pain over the right upper quadrant of her abdomen and radiates around to her back. Patient states she was able to drink some tea and eat some chicken broth today which seemed to help. Patient states she has not had much sleep over the past 4 days due to the pain. Physical Examination: Vital signs are stable. Patient is afebrile. Patient is in no acute distress. Cranial nerves II through XII are intact. Strength is 5/5 bilaterally upper and lower extremities. There are no sensory deficits noted. Neck is supple. Trachea is midline. Heart was regular rate and rhythm. Lungs are clear and equal bilateral. Abdomen is soft. There is right upper quadrant and right lower quadrant tenderness. There is some voluntary guarding noted. The remaining physical exam is within normal limits. Test Results: CBC, comprehensive metabolic profile, lipase, and urinalysis were obtained and were all within normal limits. CT scan of the abdomen and pelvis was obtained. There are bilateral renal stones but no hydronephrosis. There is no acute abnormality noted. Emergency Department Course and Treatment: Patient was given Reglan and Benadryl for her headache. Patient was also given a dose of morphine for her abdominal pain. Patient was feeling better on reevaluation. Patient was instructed to follow-up with her primary care physician in 5-7 days. Patient understood and w as agreeable with the plan. All questions were answered. Disposition: Discharge home Impression: 1. Abdominal pain 2. Headache This note was generated with [employer] dictation software. It may contain incorrect words, spelling, and punctuation that were not noted in review of the chart prior to signing ED Disposition - Plan for ED Patient: Disposition: Home or Assisted Living Diagnosis: Headache, Right sided abdominal pain Instructions: ED Cephalgia Unspecified, ED Abdominal Pain Unkn Cause Referrals: Giancarlo Espinosa MD [Primary Care Provider] -
[2018-05-18 21:00] LABS: Bacteria 0 SEEN /hpf (None Seen); Mucous, Urine 0 SEEN /hpf (<or=2+); Red Blood Cells-Urine 0 SEEN /hpf (0-5)
[2018-05-18 21:04] LABS: Color, Urine Yellow (Yellow); Glucose, Dipstick Normal (Normal); Ketone-Dipstick Negative (Negative); Leukocyte Esterase-Dipstick Negative /ul (Negative); Nitrite-Dipstick Negative (Negative); Occult Blood-Urine Negative /ul (Negative); Protein-Dipstick 15 mg/dl (Negative); Urine Bilirubin Dipstick Negative (Negative); Urine Clarity Clear (Clear); Urine Urobilinogen Normal (Normal)
[2018-05-18 21:07] LABS: Absolute Lymphocyte Count 2.95 X10^3/ul (0.83-4.51); Absolute Neutrophil Count 4.3 X10^3/uL (2.0-7.7); Basophil# 0.04 X10^3/uL; Basophil% 0.5 % (0-1); Eosinophil# 0.15 X10^3/uL; Eosinophils% 1.8 % (0-5); Hematocrit 40.5 % (37-47); Hemoglobin 13.4 g/dl (12.0-15.0); Lymphocyte # 2.95 X10^3/ul (4.0); Lymphocyte % 34.8 % (19-41); Mean Corp Hgb Conc 33.1 g/gl (32-36); Mean Corpuscular Hgb 32.2 pg (27.0-32.0); Mean Corpuscular Volume 97.4 fL (81-99); Mean Platelet Vol. 9.3 fl (6.2-12.0); Monocyte# 0.98 X10^3/uL; Monocyte% 11.6 % (0-10); Neutrophil # 4.33 X10^3/uL (2.7-7.7); Neutrophil % 51.1 % (47-70); POSITIVE COUNT NO; POSITIVE DIFFERENTIAL NO; POSITIVE MORPHOLOGY NO; Platelet Count 333 K/mm3 (150-450); RBC Distribution Width SD 45.6 fl (35.1-43.9); Red Blood Count 4.16 M/mm3 (4.2-5.4); White Blood Count 8.5 K/mm3 (4.4-11.0)
[2018-05-18 21:09] LABS: Squamous Epithelial Cells - UA 5-10 SEEN /hpf (5-10)
[2018-05-18 21:10] LABS: White Blood Cells 0-5 SEEN /hpf (0-5)
[2018-05-18 21:11] LABS: Internal QC Validated? YES +Cl - CLEAR BKGD; Pregnancy, Urine Negative Negative
[2018-05-18 21:26] LABS: AST(SGOT) 13 U/L (15-37); Alanine Aminotransfer ALT/SGPT 21 U/L (13-56); Albumin, Serum 3.8 g/dL (3.2-5.0); Alkaline Phosphatase 105 U/L (45-117); Anion Gap 6 (5-15); BUN 15 mg/dL (7-18); BUN/Creat Ratio 21.8 RATIO (10-20); Calcium,Total 8.8 mg/dL (8.5-10.1); Chloride 105 mmol/L (98-107); Creatinine, Serum 0.69 mg/dL (0.55-1.02); EST Glomerular Filtration Rate 101 mL/min (>60); Est Glom Filt Rate - Afr Amer 123 mL/min (>60); Estimated Creatinine Clearance 87.43 ml/min; Globulin 3.7 g/dL (2.2-4.2); Glucose 84 mg/dL (74-106); Lipase 161 U/L (73-393); Protein, Total 7.5 g/dL (6.4-8.2); Sodium Level 137 mmol/L (136-145)
[2018-05-18 21:32] VITALS: RESP 16
[2018-05-18] MEDS: DiphenhydrAMINE 50 MG/ML Syringe 25 MG IV (21:56)
[2018-05-18] MEDS: Metoclopramide 10 MG/2 ML Vial IV (21:56)
[2018-05-18] MEDS: Morphine 4 MG/ML Syringe IV (21:58)
[2018-05-19 00:48] VITALS: BP 132/86; PULSE 82; RESP 16; O2SAT 97
== END 2018-05-19 00:50 | disposition home or self-care (01) ==
PROVIDERS: Emergency Provider Emergency Medicine; Family Provider Family Medicine; PCP Family Medicine
DX: R51 Headache (principal); R10.31 Right lower quadrant pain; R10.11 Right upper quadrant pain; G35 Multiple sclerosis; R56.9 Unspecified convulsions; Z79.899 Other long term (current) drug therapy
CPT/HCPCS: 74176; 80053; 81001; 81025; 83690; 85025; 96374; 96375; 99285; A4216

== ENCOUNTER 2018-06-17 18:39 | Emergency (ER) | payer MEDICAID, SELFPAY ==
[2018-06-17 18:40] VITALS: BP 132/90; PULSE 113; RESP 24; TEMP 36.6; O2SAT 98; BMI 31.9
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
--- NOTE | 2018-06-17 19:06 | ED.DEP ---
ED Disposition - Plan for ED Patient: Diagnosis: Seizure Referrals: Giancarlo Espinosa MD [Primary Care Provider] -
[2018-06-17] MEDS: levETIRAcetam 750 MG Tablet PO (19:28)
[2018-06-17 19:30] VITALS: BP 128/80; PULSE 95; RESP 16; O2SAT 99
== END 2018-06-17 19:31 | disposition home or self-care (01) ==
PROVIDERS: Emergency Provider Emergency Medicine; Family Provider Family Medicine; PCP Family Medicine
DX: G40.509 Epileptic seizures related to external causes, not intractable, without status epilepticus (principal); Z79.899 Other long term (current) drug therapy
CPT/HCPCS: 99284

== ENCOUNTER 2018-07-12 16:30 | Emergency (ER) | payer MEDICAID, SELFPAY ==
[2018-07-12 16:31] VITALS: BP 121/85; PULSE 109; RESP 15; TEMP 36.4; O2SAT 98; BMI 33.2
[2018-07-12] MEDS: Gabapentin 800 MG Tablet PO (17:17)
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
[2018-07-12] MEDS: 0.9% Normal Saline 1,000 ML 1000 ML IV (17:25)
[2018-07-12 17:34] LABS: Absolute Lymphocyte Count 1.81 X10^3/ul (0.83-4.51); Absolute Neutrophil Count 8.4 X10^3/uL (2.0-7.7); Basophil# 0.02 X10^3/uL; Basophil% 0.2 % (0-1); Eosinophil# 0.02 X10^3/uL; Eosinophils% 0.2 % (0-5); Hematocrit 39.7 % (37-47); Hemoglobin 13.2 g/dl (12.0-15.0); Lymphocyte # 1.81 X10^3/ul (4.0); Lymphocyte % 15.5 % (19-41); Mean Corp Hgb Conc 33.2 g/gl (32-36); Mean Corpuscular Hgb 32.2 pg (27.0-32.0); Mean Corpuscular Volume 96.8 fL (81-99); Mean Platelet Vol. 9.1 fl (6.2-12.0); Monocyte# 1.37 X10^3/uL; Monocyte% 11.8 % (0-10); Neutrophil # 8.38 X10^3/uL (2.7-7.7); Platelet Count 280 K/mm3 (150-450); RBC Distribution Width CV 13.2 % (11.6-14.6); RBC Distribution Width SD 46.4 fl (35.1-43.9); White Blood Count 11.6 K/mm3 (4.4-11.0)
[2018-07-12 17:41] LABS: POSITIVE COUNT NO; POSITIVE DIFFERENTIAL NO; POSITIVE MORPHOLOGY NO
[2018-07-12 17:59] LABS: ALB/GLOB Ratio 1.1 RATIO (0.9-2.4); AST(SGOT) 26 U/L (15-37); Alanine Aminotransfer ALT/SGPT 41 U/L (13-56); Albumin, Serum 4.1 g/dL (3.2-5.0); Alkaline Phosphatase 120 U/L (45-117); Anion Gap 4 (5-15); BUN 11 mg/dL (7-18); BUN/Creat Ratio 9.9 RATIO (10-20); Calcium,Total 9.2 mg/dL (8.5-10.1); Chloride 104 mmol/L (98-107); Creatinine, Serum 1.11 mg/dL (0.55-1.02); EST Glomerular Filtration Rate 58 mL/min (>60); Est Glom Filt Rate - Afr Amer 71 mL/min (>60); Estimated Creatinine Clearance 51.86 ml/min; Globulin 3.8 g/dL (2.2-4.2); Glucose 98 mg/dL (74-106); Potassium 4.1 mmol/L (3.5-5.1); Protein, Total 7.9 g/dL (6.4-8.2); Sodium Level 138 mmol/L (136-145)
[2018-07-12 20:28] VITALS: BP 124/90; PULSE 92; RESP 17; O2SAT 95
[2018-07-12 20:35] LABS: Mucous, Urine 0 SEEN /hpf (<or=2+)
[2018-07-12 20:41] LABS: Internal QC Validated? YES +Cl - CLEAR BKGD; Pregnancy, Urine Negative Negative
[2018-07-12 20:43] LABS: Color, Urine Yellow (Yellow); Glucose, Dipstick Normal (Normal); Ketone-Dipstick Negative (Negative); Leukocyte Esterase-Dipstick 25 /ul (Negative); Nitrite-Dipstick Negative (Negative); Occult Blood-Urine 25 /ul (Negative); Protein-Dipstick 15 mg/dl (Negative); Urine Bilirubin Dipstick Negative (Negative); Urine Clarity Clear (Clear); Urine Urobilinogen Normal (Normal)
[2018-07-12 20:53] LABS: Bacteria RARE /hpf (None Seen); Red Blood Cells-Urine 0-5 SEEN /hpf (0-5); Squamous Epithelial Cells - UA 5-10 SEEN /hpf (5-10); White Blood Cells 0-5 SEEN /hpf (0-5)
[2018-07-12 22:04] VITALS: BP 109/92
[2018-07-12 22:06] VITALS: BP 109/92
== END 2018-07-12 22:06 ==
PROVIDERS: Emergency Provider Emergency Medicine; Family Provider Family Medicine; PCP Family Medicine
DX: R53.1 Weakness (principal); G35 Multiple sclerosis; I10 Essential (primary) hypertension; Z79.899 Other long term (current) drug therapy
CPT/HCPCS: 80053; 81001; 81025; 85025; 96360; 99285; J7030; A4216

== ENCOUNTER 2018-07-17 18:11 | Emergency (ER) | payer MEDICAID, SELFPAY ==
[2018-07-17 18:11] VITALS: BP 130/85; PULSE 109; RESP 18; TEMP 36.8; O2SAT 96; BMI 32.9
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
[2018-07-17] MEDS: HYDROcodone Bitartrate/Apap 5/325 Tablet PO (19:26)
== END 2018-07-17 19:29 | disposition home or self-care (01) ==
PROVIDERS: Emergency Provider Emergency Medicine; Family Provider Family Medicine; PCP Family Medicine
DX: T22.211A Burn of second degree of right forearm, initial encounter (principal); T21.21XA Burn of second degree of chest wall, initial encounter; T22.111A Burn of first degree of right forearm, initial encounter; T21.11XA Burn of first degree of chest wall, initial encounter; K21.9 Gastro-esophageal reflux disease without esophagitis; R56.9 Unspecified convulsions; G35 Multiple sclerosis; Z87.442 Personal history of urinary calculi; Z79.899 Other long term (current) drug therapy; X10.1XXA Contact with hot food, initial encounter; Y93.G3 Activity, cooking and baking; Y92.000 Kitchen of unspecified non-institutional (private) residence as the place of occurrence of the external cause; Y99.8 Other external cause status
CPT/HCPCS: 99283

== ENCOUNTER 2018-07-31 13:06 | Emergency (ER) | payer MEDICAID, SELFPAY ==
[2018-07-31 13:07] VITALS: BP 134/101; PULSE 101; RESP 18; TEMP 36.2; O2SAT 95; BMI 31.8
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
== END 2018-07-31 14:12 | disposition home or self-care (01) ==
PROVIDERS: Emergency Provider Emergency Medicine; Family Provider Family Medicine; PCP Family Medicine
DX: K52.9 Noninfective gastroenteritis and colitis, unspecified (principal); T21.21XD Burn of second degree of chest wall, subsequent encounter; R56.9 Unspecified convulsions; G35 Multiple sclerosis; Z79.899 Other long term (current) drug therapy
CPT/HCPCS: 99282

== ENCOUNTER 2018-09-24 14:51 | Emergency (ER) | payer MEDICAID, SELFPAY ==
[2018-09-24 14:51] VITALS: BP 134/106; PULSE 98; RESP 16; TEMP 36.7; O2SAT 98; BMI 31.8
--- NOTE | 2018-09-24 14:58 | CT_ITS ---
STUDY: CT BRAIN WITHOUT CONTRAST REASON FOR EXAM: Female, 38 years old. Headache. Nausea and vomiting. RADIATION DOSAGE (If Supplied By Facility): CTDIvol = ( 44.99 ) mGy, DLP = ( 745.49 ) mGycm TECHNIQUE: Transaxial CT imaging of the brain was performed without administration of intravenous contrast material. Individualized dose optimization techniques were used for this CT. COMPARISON: 04/25/2018 FINDINGS: Normal soft tissue structures. Normal calvarium. Normal size ventricles and extra-axial spaces for the patient's age. Normal white matter tracts of the cerebral hemispheres. Normal basal ganglia and thalami. Normal brainstem. Normal cerebellum. There is no intracranial hemorrhage. There are no findings of an acute ischemic infarction. Normal visualized paranasal sinuses. CT/Brain/Head without Contrast IMPRESSION: Normal unenhanced CT scan of the brain. Electronically Signed: Danny Durán MD at 16:16 EDT , Service support ,
--- NOTE | 2018-09-24 15:00 | ED.DCSUM_ITS ---
History of Present Illness Chief Complaint: Headache Detail of Chief Complaint: Status post trauma Informant: Patient Onset: Yesterday Context: Sudden Onset Timing: Continuous Quality: Global severe headache Location: Global Current Severity: Severe Maximum Severity: Severe Worsened by: Movement and light Relieved by: Nothing Associated Symptoms: Trauma with nausea and vomiting Narrative: Patient is a 38-year-old woman who has a known seizure disorder who had a witnessed tonic-clonic seizure yesterday. She fell striking her head on concrete. She presents because of persistent severe headache, which is abnormal after a seizure. She struck the right side of her head, right parietal temporal region. She does complain of photophobia. She denies double vision or blurred vision. She denies ringing in her ears or decreased hearing. She has trouble with speech or swallowing. She denies neck pain. She denies paresthesia, anesthesia or motor weakness. She did sustain trauma to her right knee. She states her last normal menstrual cycle ended September 12. Prior similar symptoms: No Recent Illness/Hospitalization: Yes - Past Medical History (1) Acute encephalopathy Status: Acute (2) Drug overdose Status: Acute (3) Methamphetamine abuse Status: Acute (4) Methamphetamine intoxication Status: Acute (5) Seizure Status: Acute (6) BMI 33.0-33.9,adult Status: Chronic (7) GERD (gastroesophageal reflux disease) Status: Chronic (8) Transverse myelitis Status: Chronic Past Medical History - Allergies and Home Meds Allergies/Adverse Reactions: Allergies naproxen [From Naprosyn] Allergy (Verified 09/24/18 14:52) Hives Primary Care Physician: Giancarlo Espinosa MD [Primary Care Provider] - Prior records reviewed: Yes Surgical History: appendectomy, - - Fallopian tubes tied Lives: Spouse/ Significant Other Smoking Status: Never smoker Alcohol: Rare Drugs: - - Her old records history of methamphetamine - Family History Maternal Family History: Reports: No pertinent history Paternal Family History: Reports: No pertinent history Review of Systems General: Denies: Chills, Fever, Sweats Eyes: Denies: Visual changes - bilaterally, Blurred Vision - bilaterally, Diplopia ENT: Denies: Bilateral ear pain, Rhinorrhea, Sore throat Cardiovascular: Denies: Chest pain, Palpitations Respiratory: Denies: Dyspnea, Cough, Dyspnea on exertion Gastrointestinal: Reports: Nausea, Vomiting. Denies: Abdominal pain, Diarrhea, Melena, Hematochezia Genitourinary: Denies: Dysuria, Hematuria, Frequency Musculoskeletal: Denies: Myalgias, Arthralgias, Neck pain, Back pain, Swelling, Extremity Pain Skin: Denies: Rash, Abscess, Abrasions, Wounds Neurological: Reports: Headache Psych: Reports: Depression, Anxiety Hematologic: Denies: Easy bruising, Easy bleeding Allergy: Denies: Uticaria, Swelling of the mouth Physical Exam Vital Signs/Narrative: Vital Signs Temp Pulse Resp BP Pulse Ox 09/24/18 14:51 98.1 F 98 16 134/106 H 98 Inital Vital Signs reviewed: Yes General: Well nourished, Well developed, No Acute Distress Head: Normocephalic, Atraumatic Eyes: Perrl, EOMI. Negative for: Pale conjunctiva, Scleral icterus ENT: Moist mucous membranes, No rhinorrhea, TM's clear Neck: Supple, Nontender Cardiovascular: Regular rate, Regular rhythm, No murmurs, Normal S1, Normal S2 Respiratory: No distress, CTA bilaterally, Chest nontender Abdomen: Soft, Nontender, Nondistended, Normal bowel sounds, No masses Back: Nontender, Normal Inspection. Negative for: CVA tenderness Extremities: Nontender, No edema Skin: Normal color, No rash, Trauma - Abrasions right knee region. Negative for: Cyanosis, Diaphoresis Neurological: Alert, Oriented x3, Cranial nerves II-XII grossly intact, Normal Strength, Normal Sensation, Normal DTR - There is no clonus or Babinski sign noted. Psychological: Normal affect, Normal Mood Diagnostic/Tx/Re-eval Impressions Brain CT 09/24/18 14:58 IMPRESSION: Normal unenhanced CT scan of the brain. Electronically Signed: Danny Durán MD at 16:16 EDT , Service support , 09/24/18 14:58 Brain/Head without Contrast [CT] Stat - Medical Decision Making Since patient has severe headache with nausea vomiting after trauma and different from typical headache after seizure we will obtained CT of the head to evaluate for subdural hematoma, epidural, traumatic subarachnoid hemorrhage or in parenchymal bleed. Patient lists allergy to naproxen. Will treat headache with Benadryl and Reglan. This may represent a traumatic migraine. IV was established and patient was made n.p.o. She was reassessed at 1635. She was asleep. He was awakened. She states her headache has improved and she does feel comfortable going home even though her headache has not resolved. She was informed of results. She was given opportunity ask questions and none were asked. ED Disposition - Plan for ED Patient: Disposition: Home or Assisted Living Diagnosis: Concussion wth loss of consciousness of 30 minutes or less, Generalized tonic- clonic seizure, Abrasion of knee, right Instructions: CONCUSSION, No Wake Up, SEIZURE, Recurrent [Adult] Referrals: Giancarlo Espinosa MD [Primary Care Provider] - 3-5 Days if not improving
[2018-09-24] MEDS: Metoclopramide 10 MG/2 ML Vial IV (15:17)
[2018-09-24 15:19] VITALS: RESP 16
[2018-09-24] MEDS: DiphenhydrAMINE 50 MG/ML Syringe 25 MG IV (15:19)
[2018-09-24 16:59] VITALS: BP 124/94; PULSE 87; RESP 16; O2SAT 98
== END 2018-09-24 17:01 | disposition home or self-care (01) ==
PROVIDERS: Emergency Provider Emergency Medicine; Family Provider Family Medicine; PCP Family Medicine
DX: G40.409 Other generalized epilepsy and epileptic syndromes, not intractable, without status epilepticus (principal); S06.0X1A Concussion with loss of consciousness of 30 minutes or less, initial encounter; S80.211A Abrasion, right knee, initial encounter; K21.9 Gastro-esophageal reflux disease without esophagitis; Z79.899 Other long term (current) drug therapy; W18.30XA Fall on same level, unspecified, initial encounter; Y93.89 Activity, other specified; Y92.89 Other specified places as the place of occurrence of the external cause; Y99.8 Other external cause status
CPT/HCPCS: 70450; 96374; 96375; 99284; A4216

== ENCOUNTER 2018-09-29 19:42 | Emergency (ER) | payer MEDICAID, SELFPAY ==
[2018-09-29 19:43] VITALS: BP 118/57; PULSE 114; RESP 20; TEMP 37.7; O2SAT 97; BMI 33.0
--- NOTE | 2018-09-29 20:15 | CT_ITS ---
STUDY: CT BRAIN WITHOUT CONTRAST REASON FOR EXAM: Female, 38 years old. Posttraumatic headache and seizures RADIATION DOSAGE (If Supplied By Facility): CTDIvol = ( 44.99 ) mGy, DLP = ( 745.49 ) mGycm TECHNIQUE: Transaxial CT imaging of the brain was performed without administration of intravenous contrast material. Individualized dose optimization techniques were used for this CT. COMPARISON: September 24, 2018 FINDINGS: Normal soft tissue structures. Normal calvarium. Normal size ventricles and extra-axial spaces for the patient's age. Normal white matter tracts of the cerebral hemispheres. Normal basal ganglia and thalami. Normal brainstem. Normal cerebellum. Empty sella deformity of uncertain clinical significance. There is no intracranial hemorrhage. There are no findings of an acute ischemic infarction. Minor mucosal thickening left maxillary and ethmoid sinuses No significant change since prior exam CT/Brain/Head without Contrast IMPRESSION: Empty sella deformity of uncertain clinical significance. Otherwise normal unenhanced CT the brain. Specifically no evidence for mass or acute bleed MRI may be helpful for more definitive evaluation if indicated Electronically Signed: Glenn Mcgarry MD at 20:55 EDT , Service support ,
--- NOTE | 2018-09-29 20:16 | ED.VIS.GEN ---
History of Present Illness Chief Complaint: Seizure Detail of Chief Complaint: Multiple witnessed falls Informant: Patient Limited by: - - Patient recalls going to the park and awakening in the emergency department Onset: Today Context: Sudden Onset Timing: Intermittent Quality: Multiple falls followed by generalized tonic-clonic seizure Location: Park Current Severity: Severe - Complains of severe headache Maximum Severity: Severe - Complains of severe headache Worsened by: Nothing Relieved by: Nothing Associated Symptoms: Nausea Narrative: Patient states it is not normal for have a headache after seizure. She recalls going to the park. She does not recall falling. She does not recall that she had a seizure. She denies incontinence of urine or stool. He states it is not normal for her to have a headache after seizure. No one is available to determine what she may have hit her head on. Her only complaint is severe headache. She also requested to go home. She denies neck pain. She denies numbness, tingling in her extremities. She reports compliance with anticonvulsant medication. Prior similar symptoms: Yes Recent Illness/Hospitalization: Yes - Past Medical History (1) Acute encephalopathy Status: Acute (2) Methamphetamine abuse Status: Acute (3) Methamphetamine intoxication Status: Acute (4) Seizure Status: Acute (5) Anxiety and depression Status: Chronic (6) GERD (gastroesophageal reflux disease) Status: Chronic (7) Transverse myelitis Status: Chronic Past Medical History - Allergies and Home Meds Allergies/Adverse Reactions: Allergies naproxen [From Naprosyn] Allergy (Verified 09/24/18 14:52) Hives Primary Care Physician: Giancarlo Espinosa MD [Primary Care Provider] - Surgical History: appendectomy, - - Fallopian tubes tied Lives: - - Unknown Smoking Status: Never smoker Alcohol: Rare Drugs: - - Per old records amphetamine and methamphetamine - Family History Maternal Family History: Reports: No pertinent history Paternal Family History: Reports: No pertinent history Review of Systems General: Denies: Chills, Fever Eyes: Reports: Blurred Vision - bilaterally. Denies: Diplopia ENT: Denies: Bilateral ear pain, Rhinorrhea, Sore throat Cardiovascular: Denies: Chest pain, Palpitations Respiratory: Denies: Dyspnea, Dyspnea on exertion Gastrointestinal: Reports: Nausea. Denies: Abdominal pain, Vomiting, Diarrhea Genitourinary: Denies: Dysuria, Hematuria, Frequency Musculoskeletal: Denies: Myalgias, Arthralgias, Neck pain, Back pain, Swelling, Extremity Pain Skin: Denies: Rash, Wounds Neurological: Reports: Headache. Denies: Weakness, Parasthesia, Numbness Hematologic: Denies: Easy bruising, Easy bleeding Physical Exam Vital Signs/Narrative: Vital Signs Temp Pulse Resp BP Pulse Ox 09/29/18 19:43 99.9 F H 114 H 20 H 118/57 L 97 Inital Vital Signs reviewed: Yes General: Well nourished, Well developed, Obese, No Acute Distress Head: Normocephalic, Atraumatic, - - And has grass noted in her hair and ears. There is no evidence of basilar skull fracture. Eyes: Perrl, EOMI. Negative for: Pale conjunctiva, Scleral icterus, - - There is no subconjunctival hemorrhage noted. ENT: Moist mucous membranes, No rhinorrhea, TM's clear Neck: Supple, Nontender, No lymphadenopathy, No JVD Cardiovascular: Regular rhythm, No murmurs, Normal S1, Normal S2, Tachycardia Respiratory: No distress, CTA bilaterally, Chest nontender Abdomen: Soft, Nontender, Nondistended, Normal bowel sounds Back: Nontender, Normal Inspection. Negative for: CVA tenderness Extremities: Nontender, No edema Skin: Normal color, No rash, No Trauma. Negative for: Cyanosis, Diaphoresis, Jaundice Neurological: Oriented x3, Cranial nerves II-XII grossly intact, Normal Strength, Normal Sensation, Normal DTR - There is no clonus or Babinski sign noted right or left. Negative for: Alert Psychological: - - Affect is flat. Thought content is appropriate.. Negative for: Normal affect Diagnostic/Tx/Re-eval Impressions Brain CT 09/29/18 20:15 IMPRESSION: Empty sella deformity of uncertain clinical significance. Otherwise normal unenhanced CT the brain. Specifically no evidence for mass or acute bleed MRI may be helpful for more definitive evaluation if indicated Electronically Signed: Glenn Mcgarry MD at 20:55 EDT , Service support , 09/29/18 20:15 Brain/Head without Contrast [CT] Stat She was reviewed by me and unremarkable for any acute pathology. - Medical Decision Making With GCS of 14 and history of head trauma will obtain CT of the head to evaluate for intracranial pathology. This may be secondary to seizure and postictal state. There is no obvious evidence of trauma to the face or head. Patient's sensorium has cleared. Suspect the confusion was secondary to postictal state. ED Disposition - Plan for ED Patient: Disposition: Home or Assisted Living Diagnosis: Closed head injury with loss of consciousness of unknown duration, Generalized tonic-clonic seizure Instructions: SEIZURE, Recurrent [Adult], Concussion Referrals: Giancarlo Espinosa MD [Primary Care Provider] - 1 Week
[2018-09-29 22:04] VITALS: BP 106/77; PULSE 74; RESP 16; O2SAT 97; O2SAT 98
== END 2018-09-29 22:08 | disposition home or self-care (01) ==
PROVIDERS: Emergency Provider Emergency Medicine; Family Provider Family Medicine; PCP Family Medicine
DX: G40.409 Other generalized epilepsy and epileptic syndromes, not intractable, without status epilepticus (principal); S06.9X9A Unspecified intracranial injury with loss of consciousness of unspecified duration, initial encounter; F32.9 Major depressive disorder, single episode, unspecified; F41.9 Anxiety disorder, unspecified; K21.9 Gastro-esophageal reflux disease without esophagitis; E66.9 Obesity, unspecified; Z79.899 Other long term (current) drug therapy; W18.30XA Fall on same level, unspecified, initial encounter; Y93.89 Activity, other specified; Y92.830 Public park as the place of occurrence of the external cause; Y99.8 Other external cause status
CPT/HCPCS: 70450; 99285

== ENCOUNTER 2018-12-11 19:20 | Emergency (ER) | payer MEDICAID, SELFPAY ==
[2018-12-11 19:21] VITALS: BP 104/85; PULSE 125; RESP 18; TEMP 36.7; O2SAT 97; BMI 29.2
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
--- NOTE | 2018-12-11 19:45 | RAD_ITS ---
STUDY: X-RAY - UNILATERAL RIBS ( LEFT ) WITH CHEST REASON FOR EXAM: Female, 38 years old. Rib pain TECHNIQUE - RIBS: 5 view(s) of the ribs. TECHNIQUE - CHEST: Frontal view of the chest COMPARISON: None. FINDINGS - RIBS: There is a left lateral rib fracture, likely 6TH, although overlapping shadows limit assessment. FINDINGS - CHEST: The lungs are clear. There are no pleural effusions. There is no pneumothorax. The heart is normal in size. RAD/Ribs Uni Min 3V w/PA Chest IMPRESSION: RIBS: Left lateral rib fracture, likely sixth. CHEST: Clear lungs. Electronically Signed: Glenn Barbour, at 20:11 EDT Tel , Service support ,
[2018-12-11] MEDS: HYDROcodone Bitartrate/Apap 5/325 Tablet PO (19:53)
[2018-12-11 21:23] VITALS: BP 99/75; PULSE 85; RESP 16; O2SAT 100
== END 2018-12-11 21:23 | disposition home or self-care (01) ==
PROVIDERS: Emergency Provider Emergency Medicine; Family Provider Family Medicine; PCP Family Medicine
DX: S22.32XA Fracture of one rib, left side, initial encounter for closed fracture (principal); E66.9 Obesity, unspecified; K21.9 Gastro-esophageal reflux disease without esophagitis; G35 Multiple sclerosis; R56.9 Unspecified convulsions; Z79.899 Other long term (current) drug therapy; W18.30XA Fall on same level, unspecified, initial encounter; Y93.89 Activity, other specified; Y92.009 Unspecified place in unspecified non-institutional (private) residence as the place of occurrence of the external cause; Y99.8 Other external cause status
CPT/HCPCS: 71101; 99284

== ENCOUNTER 2019-01-17 08:18 | Emergency (ER) | payer MEDICAID, SELFPAY ==
[2019-01-17 08:19] VITALS: BP 111/87; PULSE 104; RESP 16; TEMP 36.1; O2SAT 98; BMI 29.9
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
== END 2019-01-17 09:30 | disposition home or self-care (01) ==
PROVIDERS: Emergency Provider Emergency Medicine; Family Provider Family Medicine; PCP Family Medicine
DX: S01.521A Laceration with foreign body of lip, initial encounter (principal); S02.5XXA Fracture of tooth (traumatic), initial encounter for closed fracture; R56.9 Unspecified convulsions; K21.9 Gastro-esophageal reflux disease without esophagitis; G35 Multiple sclerosis; Z79.899 Other long term (current) drug therapy; X58.XXXA Exposure to other specified factors, initial encounter; Y93.9 Activity, unspecified; Y92.89 Other specified places as the place of occurrence of the external cause; Y99.8 Other external cause status
CPT/HCPCS: 70100; 99282

== ENCOUNTER 2019-01-21 11:49 | Emergency (ER) | payer MEDICAID, SELFPAY ==
[2019-01-21 11:49] VITALS: BP 130/94; PULSE 101; RESP 19; TEMP 36.6; O2SAT 100; BMI 29.2
[2019-01-21] MEDS: Ondansetron ODT 4 MG Tablet PO (12:56)
[2019-01-21 13:05] LABS: Bacteria 0 SEEN /hpf (None Seen); Mucous, Urine 0 SEEN /hpf (<or=2+); Red Blood Cells-Urine 0 SEEN /hpf (0-5)
[2019-01-21 13:09] LABS: Color, Urine Yellow (Yellow); Glucose, Dipstick Normal (Normal); Ketone-Dipstick 5 mg/dl (Negative); Leukocyte Esterase-Dipstick 500 /ul (Negative); Nitrite-Dipstick Positive (Negative); Occult Blood-Urine 150 /ul (Negative); Protein-Dipstick 100 mg/dl (Negative); Urine Bilirubin Dipstick Negative (Negative); Urine Clarity Cloudy (Clear); Urine Urobilinogen 1 mg/dl (Normal)
[2019-01-21 13:13] LABS: Squamous Epithelial Cells - UA 10-25 SEEN /hpf (5-10); White Blood Cells >100 SEEN /hpf (0-5)
[2019-01-21 13:14] LABS: Amorphous Sediment 2+
--- NOTE | 2019-01-21 13:33 | ED.VISSUMM ---
- ER Visit Summary Date of Service: 01/21/19 Chief Complaint: Vomiting History of Present Illness: The patient is a 38 F who was seen by this physician several days ago with a nonhealing lip laceration was found to have retained piece of her tooth in the lip. She tells me that every time she takes the penicillin she vomits. She is also been experiencing diarrhea. No fevers. She states that she has been able to keep the Tylenol with codeine down but is not helping her. Physical Examination: Afebrile vital signs are stable Gen: Well-nourished well-developed Head: Normocephalic atraumatic Eyes: Perrl EOMI ENT: TMs clear no rhinorrhea moist mucous membranes the lip continues to show a nonhealing inner lower laceration. I do not see any overt erythema or significant swelling. Neck: Supple no lymphadenopathy no JVD nontender CVS: Regular rate rhythm no murmurs normal S1-S2 Respiratory: No distress clear to auscultation bilaterally chest nontender Abdomen: Soft nontender nondistended normal bowel sounds no masses Back: Nontender Extremity: Nontender no edema Skin: Normal color no rash Neuro: alert orientated ?3 CN II-XII intact normal strength Psych: Normal affect normal mood Test Results: Urinalysis showed a specific gravity of 1.01. Greater than 100 white blood cells no bacteria 10-25 epithelial cells. Emergency Department Course and Treatment: Patient has no urinary symptoms and the urine specimen was contaminated therefore I think this is most likely contaminant specimen cannot be relied upon. However with a specific gravity of 1.01 I would have to say she is most likely adequately hydrated. I am not sure why she would only vomit the penicillin and not the Tylenol with codeine. I can change her to clindamycin. I will write for prescription of Zofran which we gave her a dose of here and she said no vomiting. She most likely has a gastroenteritis superimposed upon this piece of tooth that is still in her lip. She does have follow-up appointment with plastic surgery arranged. As it has now been 2-1/2 weeks since the injury I do not think we need to provide additional narcotics for this injury. Impression: 1. Vomiting and diarrhea This note was generated with [employer] dictation software. It may contain incorrect words, spelling, and punctuation that were not noted in review of the chart prior to signing ED Disposition - Plan for ED Patient: Disposition: Home or Assisted Living Instructions: VOMITING AND DIARRHEA, Nonspecific (Adult) Prescriptions: Clindamycin HCl [Cleocin] 300 mg PO Q6H #28 cap Prescription Printed Ondansetron [Zofran Odt] 4 mg PO Q8H PRN PRN #10 tab PRN Reason: Nausea Prescription Printed Referrals: Giancarlo Espinosa MD [Primary Care Provider] - As Needed Additional Instructions: Use Imodium for diarrhea
== END 2019-01-21 13:56 | disposition home or self-care (01) ==
PROVIDERS: Emergency Provider Emergency Medicine; Family Provider Family Medicine; PCP Family Medicine
DX: R11.10 Vomiting, unspecified (principal); R19.7 Diarrhea, unspecified; E66.9 Obesity, unspecified; R56.9 Unspecified convulsions; Z72.0 Tobacco use; Z79.899 Other long term (current) drug therapy
CPT/HCPCS: 81001; 99283

== ENCOUNTER 2019-02-16 10:55 | Emergency (ER) | payer MEDICAID, SELFPAY ==
[2019-02-16 10:56] VITALS: BP 121/91; PULSE 122; RESP 20; TEMP 37.3; O2SAT 94; BMI 30.6
--- NOTE | 2019-02-16 11:24 | CT_ITS ---
STUDY: CT BRAIN WITHOUT CONTRAST REASON FOR EXAM: Female, 39 years old. Seizure. RADIATION DOSAGE (If Supplied By Facility): CTDIvol = ( 44.99 ) mGy, DLP = ( 779.24 ) mGycm TECHNIQUE: Transaxial CT imaging of the brain was performed without administration of intravenous contrast material. Individualized dose optimization techniques were used for this CT. COMPARISON: September 29, 2018 and April 25, 2018. FINDINGS: Normal soft tissue structures. Normal calvarium. Normal size ventricles and extra-axial spaces for the patient''s age. Normal white matter tracts of the cerebral hemispheres. Normal basal ganglia and thalami. Normal brainstem. Normal cerebellum. There is stable empty sella. There is no intracranial hemorrhage. There are no findings of an acute ischemic infarction. Normal visualized paranasal sinuses. CT/Brain/Head without Contrast IMPRESSION: No acute intracranial abnormality. Stable appearance. Electronically Signed: Jovanni Carter MD at 12:24 EST , Service support ,
[2019-02-16 11:57] LABS: Absolute Lymphocyte Count 1.26 X10^3/uL (0.83-4.51); Absolute Neutrophil Count 3.7 X10^3/uL (2.0-7.7); Basophil# 0.03 X10^3/uL; Basophil% 0.5 % (0-1); Eosinophil# 0.01 X10^3/uL; Eosinophils% 0.2 % (0-5); Hematocrit 35.4 % (37-47); Hemoglobin 12.4 g/dL (12.0-15.0); Lymphocyte # 1.26 X10^3/ul (4.0); Lymphocyte % 22.6 % (19-41); Mean Corpuscular Hgb 35.7 pg (27.0-32.0); Mean Platelet Vol. 8.7 fl (6.2-12.0); Monocyte# 0.58 X10^3/uL; Monocyte% 10.4 % (0-10); NRBC Flagged by Analyzer 0 % (0-5); Neutrophil # 3.67 X10^3/uL (2.7-7.7); Neutrophil % 65.9 % (47-70); Platelet Count 282 K/mm3 (150-450); RBC Distribution Width CV 13.3 % (11.6-14.6); Red Blood Count 3.47 M/mm3 (4.2-5.4); White Blood Count 5.6 K/mm3 (4.4-11.0)
[2019-02-16] MEDS: Ondansetron 4 MG/2 ML Vial IV (12:09)
[2019-02-16] MEDS: 0.9% Normal Saline 1,000 ML 150 ML IV (12:09)
[2019-02-16 12:10] LABS: ALB/GLOB Ratio 0.9 RATIO (0.9-2.4); AST(SGOT) 122 U/L (15-37); Alanine Aminotransfer ALT/SGPT 88 U/L (13-56); Albumin, Serum 3.6 g/dL (3.2-5.0); Alkaline Phosphatase 105 U/L (45-117); Anion Gap 12 (5-15); BUN 8 mg/dL (7-18); BUN/Creat Ratio 11.4 RATIO (10-20); Calcium,Total 8.5 mg/dL (8.5-10.1); Chloride 101 mmol/L (98-107); EST Glomerular Filtration Rate 99 mL/min (>60); Est Glom Filt Rate - Afr Amer 119 mL/min (>60); Estimated Creatinine Clearance 85.34 ml/min; Globulin 3.8 g/dL (2.2-4.2); Glucose 99 mg/dL (74-106); Potassium 3.9 mmol/L (3.5-5.1); Protein, Total 7.4 g/dL (6.4-8.2); Sodium Level 138 mmol/L (136-145)
[2019-02-16] MEDS: LORazepam 2 MG/ML Syringe 1 MG IV (12:13)
[2019-02-16 12:31] LABS: Mucous, Urine 0 SEEN /hpf (<or=2+); Red Blood Cells-Urine 0 SEEN /hpf (0-5)
[2019-02-16 12:37] LABS: Color, Urine Yellow (Yellow); Glucose, Dipstick Normal (Normal); Ketone-Dipstick 5 mg/dl (Negative); Leukocyte Esterase-Dipstick 500 /ul (Negative); Nitrite-Dipstick Positive (Negative); Occult Blood-Urine 25 /ul (Negative); Protein-Dipstick 30 mg/dl (Negative); Urine Bilirubin Dipstick Negative (Negative); Urine Clarity Cloudy (Clear); Urine Urobilinogen 4 mg/dl (Normal)
[2019-02-16 12:50] LABS: White Blood Cells >100 SEEN /hpf (0-5)
[2019-02-16 12:51] LABS: Amphetamine Urine VISTA NEGATIVE (<1000 ng/mL); Bacteria 2+ /hpf (None Seen); Barbiturate Urine VISTA NEGATIVE (< 200 ng/mL); Benzodiazepine Urine VISTA NEGATIVE (< 200 ng/mL); Cocaine Urine VISTA NEGATIVE (< 300 ng/mL); Ecstacy Urine VISTA NEGATIVE (< 500 ng/mL); Methadone Urine VISTA NEGATIVE (< 300 ng/mL); PCP Urine VISTA NEGATIVE (< 25 ng/mL); Squamous Epithelial Cells - UA 0-5 SEEN /hpf (5-10); THC Urine VISTA NEGATIVE (< 50 ng/mL); Vista UDS pH Range 6
[2019-02-16] MEDS: levETIRAcetam IV 1,000 MG/100 ML BAG 400 MG IV (12:51)
[2019-02-16 13:35] VITALS: BP 116/83; PULSE 117; RESP 19; O2SAT 97
--- NOTE | 2019-02-16 13:53 | ED.DCSUM_ITS ---
- ER Visit Summary Date of Service: 02/16/19 Chief Complaint: [Seizures] History of Present Illness: The patient is a 39 F [resents to the emergency department complaint of seizures that have increased in frequency over the last 2 weeks. Patient has a known history of seizures and takes Keppra which he fee ls may be making her seizures worse. Patient states she has 2-3 seizures a day. Patient had a seizure yesterday which caused her to fall and injure her head. Patient also had seizure last night and then again today. Her significant other states that they typically last anywhere from 30 seconds to a few minutes and the whole body tonic-clonic. Patient slightly confused afterwards. Patient complains of a headache today. She denies recent illness otherwise. Patient also with history of MS. Patient sees a neurologist at the [facility].] While patient significant other was out of the room I asked her if she was being assaulted or abused anybody and she denied this. She feels safe. Physical Examination: [HEENT-PERRLA, EOMI. Cranial nerves II through XII grossly intact. TMs clear. Mucous membranes moist. No adenopathy. Patient has ecchymosis around the right orbit. Patient has forehead ecchymosis that appears to be old. Patient has no evidence of bite wounds to her tongue or mouth. Has no C-spine tenderness to palpation. Cardiovascular-regular rate and rhythm without murmur or ectopy Lungs-clear to auscultation, chest wall stable without crepitus or subcu emphysema Abdomen-normoactive bowel sounds, soft, nontender, no rebound or rigidity, no peritoneal signs. Extremities-intact ?4, normal range of motion, normal pulses. Patient has multiple areas of bruising to both upper extremities from falls related to her seizures.] Test Results: [CBC with differential count 5.6, hemoglobin 12, hematocrit 35, placed to 82. Chemistries unremarkable. LFTs unremarkable. Urinalysis was positive for 500 site esterase and greater than 100 WBCs as well as positive for nitrites. CT scan of the brain without contrast was unremarkable.] Emergency Department Course and Treatment: [She was given Rocephin 1 [address] IV. While in CT patient did have a whole body tonic-clonic seizure lasting about a minute. On arrival back to the emergency department she was medicated with a milligram of Ativan and given Keppra thousand milligrams IV.] Treatment Plan: [I recommended admission and transfer to [facility] for neurology evaluation given her increased frequency of seizures. Patient is adamant that she cannot be admitted and is asking to be discharged. Patient states that she is a started job today and cannot go up there at this time but will make follow-up appointment. Patient understands my concern about the frequency of seizures and injuries related to seizures. She has capacity to make that decision. Will sign out AGAINST MEDICAL ADVICE. Patient will be started on Bactrim and Pyridium.] Disposition: [.AGAINST MEDICAL ADVICE] Impression: [Current seizures UTI] This note was generated with [employer] dictation software. It may contain incorrect words, spelling, and punctuation that were not noted in review of the chart prior to signing ED Disposition - Plan for ED Patient: Referrals: Giancarlo Espinosa MD [Primary Care Provider] -
--- NOTE | 2019-02-16 13:58 | ED.DEP ---
ED Disposition - Plan for ED Patient: Instructions: SEIZURE, Recurrent [Adult], Urinary Tract Infections in Women Prescriptions: Smz/Tmp Ds [Bactrim Ds] 1 tab PO BID #14 tab Prescription Printed Phenazopyridine HCl [Pyridium] 200 mg PO BID PRN PRN #10 tab PRN Reason: Pain Prescription Printed Referrals: Giancarlo Espinosa MD [Primary Care Provider] - 3-5 Days Additional Instructions: see your neurologist as soon as possible
[2019-02-16] MEDS: Ceftriaxone 1 GM/50 ML BAG IV (14:22)
[2019-02-16 15:12] VITALS: BP 138/74; PULSE 68; RESP 15; O2SAT 97
== END 2019-02-16 15:14 | disposition left against medical advice (07) ==
PROVIDERS: Emergency Provider Emergency Medicine; Family Provider Family Medicine; PCP Family Medicine
DX: G40.909 Epilepsy, unspecified, not intractable, without status epilepticus (principal); N39.0 Urinary tract infection, site not specified; K21.9 Gastro-esophageal reflux disease without esophagitis; G35 Multiple sclerosis; Z79.899 Other long term (current) drug therapy
CPT/HCPCS: 36415; 70450; 80053; 80307; 80320; 81001; 85025; 87086; 87088; 87186; 96361; 96365; 96366; 96367; 96375; 99285; P9612; G0480; J2405

== ENCOUNTER 2019-03-23 00:22 | Emergency (ER) | payer MEDICAID, SELFPAY ==
[2019-03-23 00:24] VITALS: BP 97/69; PULSE 122; RESP 16; TEMP 37.6; O2SAT 98; BMI 30.2
--- NOTE | 2019-03-23 01:07 | CT_ITS ---
HISTORY: PT HAD MULTIPLE SEIZURES AT WORK LAST NIGHT,HER MEDS INCREASED RECENTLYHX:SEIZURES,MS,TIA X 2 TECHNIQUE: Multiple axial images were obtained of the brain without intravenous contrast. A radiation dose optimization technique was used for this scan. COMPARISON: None FINDINGS: # of images incl. paperwork: 225 Visualized portions of the paranasal sinuses and mastoid air cells are free of disease. Brain volume is normal. Gilbert-white differentiation is preserved. No hydrocephalus. No acute ischemia. No acute intracranial hemorrhage. CT/Brain/Head without Contrast IMPRESSION: Normal. ASPECT 10. Individualized dose optimization techniques were used for this CT. at 0202 Reported and signed by: Giovany Guthrie MD Electronically Signed: Giovany Guthrie MD at 2:01 EST Tel , Service support ,
[2019-03-23] MEDS: Metoclopramide 10 MG/2 ML Vial 5 MG IV (01:13)
[2019-03-23] MEDS: DiphenhydrAMINE 50 MG/ML Syringe 25 MG IV (01:14)
--- NOTE | 2019-03-23 01:14 | ED.VISSUMM ---
- ER Visit Summary Date of Service: 03/23/19 Chief Complaint: Seizure History of Present Illness: The patient is a 39 F presenting after seizure. Patient states she was at work. States she felt a seizure coming on and was able to lower herself to the floor. She then reportedly had multiple seizures. She states she did wake up in between the seizures. She had between 6-10; 1 to 2-minute seizures. She states that her Keppra was increased 2 weeks ago. She states since the Keppra was increased she is having increasing seizures. She states she has never seen a neurologist for seizures. She denies injury. She complains of headache. Denies other complaints. Physical Examination: Vitals are stable. Patient is afebrile. Alert no acute distress. HEENT exam is unremarkable. Neck is supple. No meningismus Lungs are clear and equal bilaterally. Heart is regular rate and rhythm. Abdomen is soft nontender nondistended. Extremities are unremarkable. Skin is warm and dry. No focal neurologic deficit. Remainder of exam is unremarkable. Emergency Department Course and Treatment: Patient was given Reglan, Benadryl IV. CBC, chemistries unremarkable. hCG negative. CT head shows no acute process. Discussed with hospitalist who recommends transfer to tertiary care center. Discussed with [facility] for transfer. Disposition: Transfer [facility] Impression: Multiple breakthrough seizures This note was generated with [employer] dictation software. It may contain incorrect words, spelling, and punctuation that were not noted in review of the chart prior to signing ED Disposition - Plan for ED Patient: Referrals: Giancarlo Espinosa MD [Primary Care Provider] -
[2019-03-23 01:18] LABS: Internal QC Validated? YES +Cl - CLEAR BKGD; Pregnancy, Serum, hCG Quali. NEGATIVE Negative
[2019-03-23 01:20] LABS: Absolute Lymphocyte Count 1.56 X10^3/uL (0.83-4.51); Absolute Neutrophil Count 6.4 X10^3/uL (2.0-7.7); Basophil# 0.06 X10^3/uL; Basophil% 0.7 % (0-1); Eosinophil# 0.04 X10^3/uL; Eosinophils% 0.4 % (0-5); Hematocrit 38.7 % (37-47); Hemoglobin 13.1 g/dL (12.0-15.0); Lymphocyte # 1.56 X10^3/ul (4.0); Lymphocyte % 17.4 % (19-41); Mean Corp Hgb Conc 33.9 g/dL (32-36); Mean Corpuscular Hgb 35.2 pg (27.0-32.0); Monocyte# 0.87 X10^3/uL; Monocyte% 9.7 % (0-10); NRBC Flagged by Analyzer 0 % (0-5); Neutrophil # 6.37 X10^3/uL (2.7-7.7); Neutrophil % 71.1 % (47-70); Platelet Count 423 K/mm3 (150-450); RBC Distribution Width CV 13.2 % (11.6-14.6); RBC Distribution Width SD 49.4 fl (35.1-43.9); Red Blood Count 3.72 M/mm3 (4.2-5.4)
[2019-03-23 01:23] LABS: Anion Gap 14 (5-15); BUN 14 mg/dL (7-18); BUN/Creat Ratio 13.5 RATIO (10-20); Calcium,Total 8.7 mg/dL (8.5-10.1); Chloride 104 mmol/L (98-107); Creatinine, Serum 1.04 mg/dL (0.55-1.02); EST Glomerular Filtration Rate 63 mL/min (>60); Est Glom Filt Rate - Afr Amer 76 mL/min (>60); Estimated Creatinine Clearance 57.44 ml/min; Glucose 102 mg/dL (74-106); Potassium 3.6 mmol/L (3.5-5.1); Sodium Level 138 mmol/L (136-145)
[2019-03-23 02:45] VITALS: BP 107/72; PULSE 114; RESP 18; O2SAT 95
--- NOTE | 2019-03-23 02:53 | ED.RN ---
[facility] currently full unable to accept
--- NOTE | 2019-03-23 02:56 | ED.RN ---
[facility] paged for admission at this time. Dr. buenrostro speaking to transfer center
[2019-03-23] MEDS: Morphine 4 MG/ML Syringe IV (03:40)
[2019-03-23] MEDS: Ondansetron 4 MG/2 ML Vial IV (03:40)
[2019-03-23 03:55] VITALS: BP 107/72; PULSE 114; RESP 18; TEMP 36.7; O2SAT 95
[2019-03-23 04:17] VITALS: RESP 18
== END 2019-03-23 04:51 | disposition short-term general hospital (02) ==
LOC: ED 01:21
PROVIDERS: Emergency Provider Emergency Medicine; Family Provider Family Medicine; PCP Family Medicine
DX: R56.9 Unspecified convulsions (principal); Z79.899 Other long term (current) drug therapy
CPT/HCPCS: 70450; 80048; 84703; 85025; 96374; 96375; 99285; A4216; J2405

== ENCOUNTER 2020-01-30 13:54 | Emergency (ER) | payer MEDICAID, SELFPAY ==
[2020-01-30 13:54] VITALS: BP 95/39; PULSE 111; PULSE 113; RESP 16; TEMP 35.7; TEMP 36.1; O2SAT 97; BMI 33.0
--- NOTE | 2020-01-30 15:12 | ED.DCSUM_ITS ---
- ER Visit Summary Date of Service: 01/30/20 Chief Complaint: Seizure History of Present Illness: The patient is a [address] Mitchell. She reports that she has a history of seizures and has not taken her medication this morning. She typically takes 1000 g of Keppra once a day and 200 mg of Lamictal twice a day. She was at court and had a witnessed seizure. Patient did not bite her tongue. She had no urinary incontinence. Review of systems: General: No fever, chills, cold sweats. Cardiovascular: No chest pain, palpitations. Respiratory: No cough, shortness of breath, dyspnea on exertion. Gastrointestinal: No abdominal pain, nausea, vomiting, diarrhea, melena, or hematochezia. Genitourinary: No dysuria, frequency, hematuria. Skin: No rash. Neuro: No headache, numbness, weakness. Physical Examination: Vitals: Stable. Afebrile. General: Well-nourished and well-developed. Head: Normocephalic atraumatic. Neck: Supple, no lymphadenopathy. No JVD. Nontender. Cardiovascular: Regular rate and rhythm. No murmurs. Respiratory: No respiratory distress. Clear to auscultation bilaterally. Abdominal: Soft, nontender, nondistended, normal bowel sounds. No guarding, rebound, or peritoneal signs. Back: Nontender. Extremities: Nontender, no edema. Skin: Normal color, no rash. Neurologic: Alert and oriented ?3. Cranial nerves II through XII are intact. Normal strength and sensation. Psych: Normal affect. Emergency Department Course and Treatment: Patient has had a CT in the past for her seizures. She does not have a headache at this time. I do not feel that imaging is indicated. I cannot do levels of Keppra and Lamictal. Treatment Plan: She was given oral doses of both of these here and instructed to take her medications as previously prescribed. Follow-up with her primary c are physician 1 to 2 days if not improving. Return to the emergency department for any worsening symptoms. Disposition: To home in improved and stable condition. Impression: 1. Breakthrough seizure. This note was generated with [employer] software. It may contain incorrect words, spelling, and punctuation that were not noted in review of the chart prior to signing ED Disposition - Plan for ED Patient: Instructions: ED Seizure Recurrent Adult Referrals: Giancarlo Espinosa MD [Primary Care Provider] - 1-2 Days if not improving
[2020-01-30 16:07] VITALS: BP 114/90; PULSE 90; RESP 18; O2SAT 97
[2020-01-30] MEDS: lamoTRIgine 100 MG Tablet 200 MG PO (16:10)
[2020-01-30] MEDS: levETIRAcetam 1,000 MG Tablet 1000 MG PO (16:11)
== END 2020-01-30 16:15 | disposition home or self-care (01) ==
PROVIDERS: Emergency Provider Emergency Medicine; PCP Family Medicine
DX: G40.909 Epilepsy, unspecified, not intractable, without status epilepticus (principal)

== ENCOUNTER 2020-01-30 22:52 | Observation (INO) | payer MEDICAID, SELFPAY ==
[2020-01-30 13:54] VITALS: BMI 33.0
[2020-01-30 22:53] VITALS: BP 150/108; PULSE 95; RESP 16; TEMP 36.4; O2SAT 98; BMI 32.9
--- NOTE | 2020-01-30 23:45 | ED.DCSUM_ITS ---
History of Present Illness Chief Complaint: General Illness Narrative: 39-year-old female presents for the second time today as she states that she was found by police on the ground. Patient reports that she had a seizure at about 1400 prior to arrival earlier. Was given her home medications for seizure. After discharge she states that she had not taken her nighttime medication at 9 PM. She reports that she has a swollen lip and some facial pain due to her fall. She denies drugs or alcohol. She is not had a fever. She was tested for Covid?19 was supposed to be quarantining at home but was not. Patient is a poor informant and appears to be confused although when he is arousable. She states that she supposed to take her medications 2 times a day and then shortly after states she supposed to take them 3 times a day. 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 (4) Methamphetamine abuse Status: Chronic (5) Seizure Status: Acute Past Medical History - Allergies and Home Meds Allergies/Adverse Reactions: Allergies naproxen [From Naprosyn] Allergy (Verified 01/30/20 22:55) Hives Penicillins Adverse Reaction (Verified 01/30/20 22:55) Vomiting Prior records reviewed: Yes Past Medical History: - - Reviewed in problem list Surgical History: appendectomy, - - Fallopian tubes tied Smoking Status: Never smoker - Family History Maternal Family History: Reports: No pertinent history Paternal Family History: Reports: No pertinent history Review of Systems General: Reports: - - Generalized weakness. Denies: Chills, Fever, Sweats Eyes: Denies: Visual changes - bilaterally, Diplopia ENT: Denies: Rhinorrhea, Sore throat Cardiovascular: Denies: Chest pain, Palpitations Respiratory: Denies: Dyspnea, Cough, Dyspnea on exertion Gastrointestinal: Denies: Abdominal pain, Nausea, Vomiting, Diarrhea, Melena, Hematochezia Musculoskeletal: Denies: Back pain, Extremity Pain Skin: Reports: - - Facial bruising of the upper lip and lower lip on the left side greater than the right.. Denies: Abscess Neurological: Denies: Headache, Weakness Psych: Denies: Depression, Anxiety, Suicidal thoughts, Suicidal ideations Physical Exam Vital Signs/Narrative: Vital Signs Temp Pulse Resp BP Pulse Ox 01/30/20 22:53 97.5 F L 95 16 150/108 H 98 General: Unkempt, No Acute Distress Head: - - Facial bruising of the upper and lower lip. Bruising to the forehead as well. No skull induration or deformity. No obvious facial bone tenderness. Dentition are intact. Eyes: Perrl, EOMI, - - No hemotympanum ENT: Moist mucous membranes, No rhinorrhea Neck: Supple, Nontender Cardiovascular: Regular rate, Regular rhythm Abdomen: Soft, Nontender, Nondistended Back: Nontender, Normal Inspection Extremities: Nontender, No edema Skin: - - Using as described above. Negative for: Diaphoresis, Jaundice Neurological: Alert, Cranial nerves II-XII grossly intact, Confused Psychological: Normal affect. Negative for: Tearful, Agitated Diagnostic/Tx/Re-eval Chest X-Ray - ED: Left Infiltrate Clinical Impression(s) from Imaging Studies Brain CT 01/31/20 00:01 IMPRESSION: Normal unenhanced CT scan of the brain. Electronically Signed: Gabrielle Stanton MD at 1:28 EST , Service support , Chest X-Ray 01/31/20 00:01 IMPRESSION: Minimal left atelectasis otherwise no acute process identified. Electronically Signed: Gabrielle Stanton MD at 0:30 EST , Service support , Facial/Sinus 01/31/20 00:02 IMPRESSION: Mild soft tissue swelling as described otherwise normal unenhanced CT of the facial bones. Specifically, no acute fracture seen. Electronically Signed: Gabrielle Stanton MD at 1:44 EST , Service support , Laboratory Data 01/31/20 01/31/20 01/31/20 00:53 00:53 00:53 WBC 9.0 RBC 3.62 L Hgb 12.1 Hct 36.6 L MCV 101.1 H MCH 33.4 H MCHC 33.1 RDW Std Deviation 46.1 H RDW Coeff of Walt 12.6 Plt Count 237 MPV 9.5 Immature Gran % (Auto) 1.000 H Neut % (Auto) 65.5 Lymph % (Auto) 22.0 [place] % (Auto) 11.2 H Eos % (Auto) 0.1 Baso % (Auto) 0.2 Absolute Neuts (auto) 5.9 Absolute Lymphs (auto) 1.97 Nucleated RBC % 0 Sodium 141 Potassium 3.7 Chloride 108 H Carbon Dioxide 26.0 Anion Gap 7 BUN 19 H Creatinine 0.67 Estim Creat Clear Calc 89.16 Est GFR (MDRD) Af Amer 125 Est GFR (MDRD) Non-Af 103 BUN/Creatinine Ratio 28.2 H Glucose 100 Calcium 8.4 L Total Bilirubin 0.20 AST 30 ALT 18 Alkaline Phosphatase 79 Troponin I < 0.015 Total Protein 6.8 Albumin 3.2 Globulin 3.6 Albumin/Globulin Ratio 0.9 Serum , Qual Urine Color Urine Clarity Urine pH Ur Specific [place] Urine Protein Urine Glucose (UA) Urine Ketones Urine Occult Blood Urine Nitrite Urine Bilirubin Urine Urobilinogen Ur Leukocyte Esterase Urine RBC Urine WBC Ur Squamous Epith Cells Amorphous Sediment Urine Bacteria Urine Mucus Urine Opiates Screen Urine Methadone Screen Ur Barbiturates Screen Valproic Acid Ur Phencyclidine Scrn Ur Amphetamines Screen U Methamphetamin-MDMA U Benzodiazepines Scrn Urine Cocaine Screen U Cannabinoids Screen Ur Drug Screen Comment Ethyl Alcohol < 3.0 01/31/20 01/31/20 01/31/20 00:53 00:53 01:30 WBC RBC Hgb Hct MCV MCH MCHC RDW Std Deviation RDW Coeff of Walt Plt Count MPV Immature Gran % (Auto) Neut % (Auto) Lymph % (Auto) [place] % (Auto) Eos % (Auto) Baso % (Auto) Absolute Neuts (auto) Absolute Lymphs (auto) Nucleated RBC % Sodium Potassium Chloride Carbon Dioxide Anion Gap BUN Creatinine Estim Creat Clear Calc Est GFR (MDRD) Af Amer Est GFR (MDRD) Non-Af BUN/Creatinine Ratio Glucose Calcium Total Bilirubin AST ALT Alkaline Phosphatase Troponin I Total Protein Albumin Globulin Albumin/Globulin Ratio Serum , Qual NEGATIVE Urine Color Yellow Urine Clarity Clear Urine pH 6.0 Ur Specific [place] 1.025 Urine Protein 15 H Urine Glucose (UA) Normal Urine Ketones 50 H Urine Occult Blood Negative Urine Nitrite Negative Urine Bilirubin Negative Urine Urobilinogen 4 H Ur Leukocyte Esterase 100 H Urine RBC 0 SEEN Urine WBC 10-25 SEEN Ur Squamous Epith Cells 0-5 SEEN Amorphous Sediment RARE Urine Bacteria 2+ Urine Mucus 1+ Urine Opiates Screen Urine Methadone Screen Ur Barbiturates Screen Valproic Acid 125 H Ur Phencyclidine Scrn Ur Amphetamines Screen U Methamphetamin-MDMA U Benzodiazepines Scrn Urine Cocaine Screen U Cannabinoids Screen Ur Drug Screen Comment Ethyl Alcohol 01/31/20 01:30 WBC RBC Hgb Hct MCV MCH MCHC RDW Std Deviation RDW Coeff of Walt Plt Count MPV Immature Gran % (Auto) Neut % (Auto) Lymph % (Auto) [place] % (Auto) Eos % (Auto) Baso % (Auto) Absolute Neuts (auto) Absolute Lymphs (auto) Nucleated RBC % Sodium Potassium Chloride Carbon Dioxide Anion Gap BUN Creatinine Estim Creat Clear Calc Est GFR (MDRD) Af Amer Est GFR (MDRD) Non-Af BUN/Creatinine Ratio Glucose Calcium Total Bilirubin AST ALT Alkaline Phosphatase Troponin I Total Protein Albumin Globulin Albumin/Globulin Ratio Serum , Qual Urine Color Urine Clarity Urine pH Ur Specific [place] Urine Protein Urine Glucose (UA) Urine Ketones Urine Occult Blood Urine Nitrite Urine Bilirubin Urine Urobilinogen Ur Leukocyte Esterase Urine RBC Urine WBC Ur Squamous Epith Cells Amorphous Sediment Urine Bacteria Urine Mucus Urine Opiates Screen NEGATIVE Urine Methadone Screen NEGATIVE Ur Barbiturates Screen NEGATIVE Valproic Acid Ur Phencyclidine Scrn NEGATIVE Ur Amphetamines Screen NEGATIVE U Methamphetamin-MDMA NEGATIVE U Benzodiazepines Scrn NEGATIVE Urine Cocaine Screen NEGATIVE U Cannabinoids Screen NEGATIVE Ur Drug Screen Comment Ethyl Alcohol - Medical Decision Making Patient presents with confusion, shakiness and was found on the ground unconscious by PD she stated. She was transported by them she stated. She also states that earlier she was told that she was staggering and walking abnormal. She does not know if she had another seizure or not. Initially she states that she took Lamictal and Keppra for her seizure disorder which was given to her earlier. It is unclear what her dosing regimen is but she has amitriptyline and Keppra on her med list. Patient distantly took Depakote. After examining her she did have bruising on her face and her lips. She had CT of the brain and maxillofacial which were normal. EKG shows sinus rhythm with a new first-degree AV block. She feels cold and shaky and her Depakote level is slightly elevated at 125. Per medical records she had been prescribed this since March. Patient was tested for Covid earlier and she did have a rapid Covid done since she is being admitted to the hospital and this was negative. She has a urinary tract infection which was sent for culture. She started on Rocephin. It is possible that she could have some symptoms of Depakote toxicity although her lev el is not that high she does have shakiness confusion, and has a new first- degree AV block. It is possible that this could be from urinary tract infection. Otherwise her lab work is unremarkable. Patient will be admitted Impression: 1. UTI with delirium 2. Elevated Depakote level 3. Facial contusions 4. Breakthrough seizure versus syncope ED Disposition - Plan for ED Patient: Disposition: Acute Care Hospital [facility]
[2020-01-30 23:53] VITALS: BP 150/97; PULSE 93; RESP 16; O2SAT 97
[2020-01-31] VITALS (13 sets, daily range): BP systolic 113–132; BP diastolic 70–92; PULSE 80–95; RESP 12–22; TEMP 36.4–36.9; O2SAT 95–100; BMI 29.3
--- NOTE | 2020-01-31 00:01 | CT_ITS ---
STUDY: CT BRAIN WITHOUT CONTRAST REASON FOR EXAM: Female, 39 years old. HEAD INJURY, LIGHT HEADED SHAKY, HASN''T TAKEN SEIZURE MEDS RADIATION DOSAGE (If Supplied By Facility): CTDIvol = ( 44.99 ) mGy, DLP = ( 812.98 ) mGycm TECHNIQUE: Transaxial CT imaging of the brain was performed without administration of intravenous contrast material. Individualized dose optimization techniques were used for this CT. COMPARISON: 03/23/2019. FINDINGS: Normal soft tissue structures. Normal calvarium. Normal size ventricles and extra-axial spaces for the patient''s age. Normal white matter tracts of the cerebral hemispheres. Normal basal ganglia and thalami. Normal brainstem. Normal cerebellum. There is no intracranial hemorrhage. There are no findings of an acute ischemic infarction. Normal visualized paranasal sinuses. CT/Brain/Head without Contrast IMPRESSION: Normal unenhanced CT scan of the brain. Electronically Signed: Gabrielle Stanton MD at 1:28 EST , Service support ,
--- NOTE | 2020-01-31 00:01 | RAD_ITS ---
STUDY: X-RAY CHEST REASON FOR EXAM: Female, 39 years old. lightheaded, shaky -- BEST IMAGES POSSIBLE, PATIENT WOULD NOT TAKE IN A DEEP INSPIRATION TECHNIQUE: Single AP portable view of the chest. COMPARISON: 01/11/2018. FINDINGS: There is decreased inspiratory effort with vascular crowding. There is minimal left mid lower lung field atelectasis. There is no demonstrated pleural abnormality. Normal size heart. Normal mediastinum and althea. Normal visualized pulmonary arteries. Normal visualized aortic arch and descending thoracic aorta. Normal visualized thoracic spine. Normal visualized ribs, clavicles, and shoulders. There is no demonstrated abnormality of the visualized soft tissue structures of the upper abdomen. RAD/Chest 1 View (Portable) IMPRESSION: Minimal left atelectasis otherwise no acute process identified. Electronically Signed: Gabrielle Stanton MD at 0:30 EST , Service support ,
--- NOTE | 2020-01-31 00:02 | CT_ITS ---
STUDY: CT FACIAL BONES WITHOUT CONTRAST REASON FOR EXAM: Female, 39 years old. HEAD INJURY, LIGHT HEADED SHAKY, HASN''T TAKEN SEIZURE MEDS RADIATION DOSAGE (If Supplied By Facility): CTDIvol = ( 29.38 ) mGy, DLP = ( 620.92 ) mGycm TECHNIQUE: The patient was scanned in a multi detector CT scanner. Sagittal and coronal images were reconstructed. Individualized dose optimization techniques were used for this CT. COMPARISON: None. FINDINGS: Mild soft tissue swelling over the supraorbital region. Normal orbital freire and orbital contents. Normal nasal bones and anterior nasal spine. Normal facial bones. There is no demonstrated fracture. Normal visualized paranasal sinuses. CT/Sinus/Facial Bone IMPRESSION: Mild soft tissue swelling as described otherwise normal unenhanced CT of the facial bones. Specifically, no acute fracture seen. Electronically Signed: Gabrielle Stanton MD at 1:44 EST , Service support ,
[2020-01-31 01:00] LABS: Absolute Lymphocyte Count 1.97 X10^3/uL (0.83-4.51); Absolute Neutrophil Count 5.9 X10^3/uL (2.0-7.7); Basophil# 0.02 X10^3/uL; Basophil% 0.2 % (0-1); Eosinophil# 0.01 X10^3/uL; Eosinophils% 0.1 % (0-5); Hematocrit 36.6 % (37-47); Hemoglobin 12.1 g/dL (12.0-15.0); Lymphocyte # 1.97 X10^3/ul (4.0); Mean Corp Hgb Conc 33.1 g/dL (32-36); Mean Corpuscular Hgb 33.4 pg (27.0-32.0); Mean Corpuscular Volume 101.1 fL (81-99); Mean Platelet Vol. 9.5 fl (6.2-12.0); Monocyte% 11.2 % (0-10); NRBC Flagged by Analyzer 0 % (0-5); Neutrophil # 5.86 X10^3/uL (2.7-7.7); Neutrophil % 65.5 % (47-70); Platelet Count 237 K/mm3 (150-450); RBC Distribution Width CV 12.6 % (11.6-14.6); RBC Distribution Width SD 46.1 fl (35.1-43.9); Red Blood Count 3.62 M/mm3 (4.2-5.4)
[2020-01-31 01:22] LABS: Internal QC Validated? YES +Cl - CLEAR BKGD; Pregnancy, Serum, hCG Quali. NEGATIVE Negative
[2020-01-31 01:33] LABS: ALB/GLOB Ratio 0.9 RATIO (0.9-2.4); AST(SGOT) 30 U/L (15-37); Alanine Aminotransfer ALT/SGPT 18 U/L (13-56); Albumin, Serum 3.2 g/dL (3.2-5.0); Alcohol, Blood (Medical)-Serum < 3.0 mg/dL; Alkaline Phosphatase 79 U/L (45-117); Anion Gap 7 (5-15); BUN 19 mg/dL (7-18); BUN/Creat Ratio 28.2 RATIO (10-20); Calcium,Total 8.4 mg/dL (8.5-10.1); Chloride 108 mmol/L (98-107); Creatinine, Serum 0.67 mg/dL (0.55-1.02); EST Glomerular Filtration Rate 103 mL/min (>60); Est Glom Filt Rate - Afr Amer 125 mL/min (>60); Estimated Creatinine Clearance 89.16 ml/min; Globulin 3.6 g/dL (2.2-4.2); Glucose 100 mg/dL (74-106); Potassium 3.7 mmol/L (3.5-5.1); Protein, Total 6.8 g/dL (6.4-8.2); Sodium Level 141 mmol/L (136-145); Valproic Acid (Depakene) Level 125 ug/mL (50-100)
[2020-01-31 01:34] LABS: Red Blood Cells-Urine 0 SEEN /hpf (0-5)
[2020-01-31 01:35] LABS: Color, Urine Yellow (Yellow); Glucose, Dipstick Normal (Normal); Ketone-Dipstick 50 mg/dl (Negative); Leukocyte Esterase-Dipstick 100 /ul (Negative); Nitrite-Dipstick Negative (Negative); Occult Blood-Urine Negative /ul (Negative); Protein-Dipstick 15 mg/dl (Negative); Specific Gravity, Urine 1.025 (1.002-1.030); Urine Bilirubin Dipstick Negative (Negative); Urine Clarity Clear (Clear); Urine Urobilinogen 4 mg/dl (Normal)
[2020-01-31 01:46] LABS: Squamous Epithelial Cells - UA 0-5 SEEN /hpf (5-10); White Blood Cells 10-25 SEEN /hpf (0-5)
[2020-01-31 01:47] LABS: Amorphous Sediment RARE; Bacteria 2+ /hpf (None Seen); Mucous, Urine 1+ /hpf (<or=2+)
[2020-01-31 01:51] LABS: Amphetamine Urine VISTA NEGATIVE (<1000 ng/mL); Barbiturate Urine VISTA NEGATIVE (< 200 ng/mL); Benzodiazepine Urine VISTA NEGATIVE (< 200 ng/mL); Cocaine Urine VISTA NEGATIVE (< 300 ng/mL); Ecstacy Urine VISTA NEGATIVE (< 500 ng/mL); Methadone Urine VISTA NEGATIVE (< 300 ng/mL); PCP Urine VISTA NEGATIVE (< 25 ng/mL); THC Urine VISTA NEGATIVE (< 50 ng/mL); Vista UDS pH Range 6
--- NOTE | 2020-01-31 02:08 | PCM.HP.STD ---
Problem List (1) Acute encephalopathy Status: Acute (2) Seizure Status: Acute (3) UTI (urinary tract infection) Status: Acute Qualifiers: Urinary tract infection type: site unspecified (4) Methamphetamine abuse Status: Chronic (5) Anxiety and depression Status: Chronic (6) BMI 33.0-33.9,adult Status: Chronic (7) GERD (gastroesophageal reflux disease) Status: Chronic Qualifiers: Esophagitis presence: esophagitis presence not specified Qualified Code(s): K21.9 - Gastro-esophageal reflux disease without esophagitis History of Present Illness Date of Admission: 01/31/20 Chief Complaint: Breakthrough seizure The patient is a 39 y/o F w/ PMHx: Polysubstance abuse (Including Methamphetamines), Seizure disorder, Anxiety and Depression, GERD, Chronic L Sided sensory loss, ? Prior MS diagnosis but normal LP and prior MRI imaging who presents to the [facility] ED on 01/31/20 with history of breakthrough seizure 01/30/20 prompting ED presentation with admission that she has not been taking her seizure medications with breakthrough seizure noting that she normally takes 1000 mg of Keppra once a day and 200 mg of Lamictal twice a day and while at court had a witnessed seizure with no tongue biting, urinary or bowel incontinence prompting patient to be brought to the ED for evaluation. From review of patient's records neither of these medications is correct and she is noted to take 750 mg of Keppra twice daily and there is no Lamictal listed. Patient returns to the ED on 01/31/2020 secondary to being found on the ground by police, notes that she did take her nighttime medications at approximately 9 PM but cannot recall anything further. Patient upon presentation with evidence of trauma with a swollen lip and some facial discomfort secondary to reported fall but unclear exact history. Work-up in the ED included T 97.5, heart 95, BP initially 150/108 with improvement to 123/89, respiratory rate 16, 98% on room air, CBC with WC 9, hemoglobin 12.1, platelet 237 with increased immature granulocytes, CMP with chloride 108, BUN/creatinine 19/0.67, troponin less than 0.01, negative testing, urinalysis with specific gravity 1.025, protein 15, ketone 50, negative nitrite, 4 urobilinogen, 100 leukocyte esterase, urine WBCs 10-25, 2+ bacteria, UDS unremarkable including for methamphetamines, valproic acid 125, ethyl alcohol less than 3, urine culture pending per ED, CT of the brain with no acute intracranial findings, chest x-ray with mild left atelectasis otherwise no acute cardiopulmonary findings, CT of the face with mild soft tissue swelling over the supraorbital region otherwise normal unenhanced CT of the facial bones with no acute fracture demonstrated. In the ED patient ministered normal saline, Zofran, morphine. Past Medical History Past Medical History (Chronic Problems): Chronic Problems Anxiety and depression (Chronic) Methamphetamine abuse (Chronic) High anion gap metabolic acidosis (Chronic) Drug overdose (Chronic) Encephalopathy (Chronic) Transverse myelitis (Chronic) GERD (gastroesophageal reflux disease) (Chronic) BMI 33.0-33.9,adult (Chronic) Allergies naproxen [From Naprosyn] Allergy (Verified 01/30/20 22:55) Hives Penicillins Adverse Reaction (Verified 01/30/20 22:55) Vomiting Home Medications: Ambulatory Orders Medication Instructions Recorded Amitriptyline HCl 300 mg PO QHS 04/02/18 Levetiracetam [Keppra] 1,500 mg PO BID 04/02/18 Meloxicam [Mobic] 15 mg PO DAILY 12/11/18 Omeprazole 20 mg PO DAILY 12/11/18 Ondansetron [Zofran Odt] 4 mg PO Q8H PRN PRN #10 tab 01/21/19 Surgical History: appendectomy, - - Bilateral tubal ligation. Psychiatric History: Anxiety, Depression DIRECT SUPPORT PROFESSIONAL History: No pertinent DIRECT SUPPORT PROFESSIONAL history Lives: Friends Smoking Status: Never smoker Tobacco Use: Non-smoker Alcohol: None Drugs: - - Patient with history of IV methamphetamine usage. - *Family History Maternal History Items: - - Patient denies any marked maternal or paternal family history including heart disease, diabetes, cancer. Paternal History Items: - - Patient denies any marked maternal or paternal family history including heart disease, diabetes, cancer. Review of Systems Constitutional: Reports: Malaise, Weakness, Fatigue. Denies: Chills, Fever, Weight Change HEENT: Reports: Head Aches. Denies: Sinus Congestion, Sinus Drainage Cardiovascular: Denies: Chest Pain, Palpitations Respiratory: Denies: Cough, Shortness of breath at rest, Sputum production Gastrointestinal: Denies: Abdominal Pain, Nausea, Vomiting Genitourinary: Reports: Dysuria Musculoskeletal: Reports: Joint Pain. Denies: Joint Tenderness Skin: Denies: Rash, Wounds Neurological: Reports: Confusion, Seizures. Denies: Focal weakness, Numbness, Tingling Psychiatric: Reports: Anxiety, Depression. Denies: Homicidal Ideations, Suicidal Ideations Hematologic/ Lymphatic: Reports: Anemia. Denies: Easy Bruising, Easy Bleeding VTE Information - Inpt Only VTE Present on Admission: No VTE Mechan Device Prophylaxis: None VTE Pharm Prophylaxis ordered?: No Reason prophylaxis not ordered:: Treatment Not Indicated Patient Problems: Active and Suspected Problems Seizure (Acute) Subjective: Patient laying in the ED bed, reportedly per discussion with ED physician had been unresponsive and not answering any questions but had been up at least twice and walked to the bathroom, patient initially not responding, drops her arm onto her face region and she corrected its trajectory x3, then was willing to answer questions and began talking and behaving without issue. Objective: Physical Examination: General: awake, alert, oriented to self, place and recent events, initially unresponsive per ED physician but following examination awakens, alert, answering questions appropriately, following commands, laying in the ED bed, no distress evident. Skin: normal color, turgor, no icterus, cyanosis. HEENT: Mild soft tissue swelling over the supraorbital region otherwise no obvious trauma/NC, EOMI, PERRLA, moderately dry MM, no carotid bruits or JVD noted. Lungs: CTA bilaterally, moderate effort, moderate decrease BL bases, no rales, ronchi or wheezing. Heart: Currently regular rate and rhythm; no gallop, rub audible. Abdomen: soft, obese, NTTP, ND, normal BS, no HSM. Extremities: no cyanosis, clubbing, or edema. Neurological: patient awake, alert, oriented as noted; cognitive function suspect nearing baseline intact; pupils equally reactive to light and accomodation; cranial nerves II-XII grossly normal, moving all 4 extremities, no focal deficits, strength moderately global decrease, no evidence of seizure activity, initially difficulty arousing but performed hand drop with corrected trajectory as noted x3 and following this patient became more alert, oriented and answers questions appropriately. Psychiatric: affect appears fatigued otherwise normal, no acute evidence of depressive or anxiety feelings, some concern for conversion versus malingering. - Physical Exam Vitals/I&O's: Vital Signs Temp Pulse Resp BP Pulse Ox 97.5 F L 95 22 H 123/89 H 97 01/30/20 22:53 01/31/20 00:52 01/31/20 00:52 01/31/20 00:52 01/31/20 00:52 Oxygen Delivery Method Room Air Weight: 180 lb Body Mass Index (BMI) 32.9 Finger Stick Blood Glucose 62 Laboratory Results 01/31/20 00:53: WBC 9.0, RBC 3.62 L, Hgb 12.1, Hct 36.6 L, MCV 101.1 H, MCH 33.4 H, MCHC 33.1, RDW Std Deviation 46.1 H, RDW Coeff of Walt 12.6, Plt Count 237, MPV 9.5, Immature Gran % (Auto) 1.000 H, Neut % (Auto) 65.5, Lymph % (Auto) 22.0, [place] % (Auto) 11.2 H, Eos % (Auto) 0.1, Baso % (Auto) 0.2, Absolute Neuts (auto) 5.9, Absolute Lymphs (auto) 1.97, Nucleated RBC % 0 01/31/20 00:53: Sodium 141, Potassium 3.7, Chloride 108 H, Carbon Dioxide 26.0, Anion Gap 7, BUN 19 H, Creatinine 0.67, Estim Creat Clear Calc 89.16, Est GFR (MDRD) Af Amer 125, Est GFR (MDRD) Non-Af 103, BUN/Creatinine Ratio 28.2 H, Glucose 100, Calcium 8.4 L, Total Bilirubin 0.20, AST 30, ALT 18, Alkaline Phosphatase 79, Troponin I < 0.015, Total Protein 6.8, Albumin 3.2, Globulin 3.6, Albumin/Globulin Ratio 0.9 01/31/20 00:53: Ethyl Alcohol < 3.0 01/31/20 00:53: Serum , Qual NEGATIVE 01/31/20 00:53: Valproic Acid 125 H 01/31/20 01:30: Urine Color Yellow, Urine Clarity Clear, Urine pH 6.0, Ur Specific [place] 1.025, Urine Protein 15 H, Urine Glucose (UA) Normal, Urine Ketones 50 H, Urine Occult Blood Negative, Urine Nitrite Negative, Urine Bilirubin Negative, Urine Urobilinogen 4 H, Ur Leukocyte Esterase 100 H, Urine RBC 0 SEEN, Urine WBC 10-25 SEEN, Ur Squamous Epith Cells 0-5 SEEN, Amorphous Sediment RARE, Urine Bacteria 2+, Urine Mucus 1+ 01/31/20 01:30: Urine Opiates Screen NEGATIVE, Urine Methadone Screen NEGATIVE, Ur Barbiturates Screen NEGATIVE, Ur Phencyclidine Scrn NEGATIVE, Ur Amphetamines Screen NEGATIVE, U Methamphetamin-MDMA NEGATIVE, U Benzodiazepines Scrn NEGATIVE, Urine Cocaine Screen NEGATIVE, U Cannabinoids Screen NEGATIVE, Ur Drug Screen Comment Assessment/Plan All Active Problems Seizure (Acute) UTI (urinary tract infection) (Acute) Methamphetamine intoxication (Acute) Acute encephalopathy (Acute) Altered mental status (Acute) The patient is a 39 y/o F w/ PMHx: Polysubstance abuse (Including Methamphetamines), Seizure disorder, Anxiety and Depression, GERD, Chronic L Sided sensory loss, ? Prior MS diagnosis but normal LP and prior MRI imaging who presents to the [facility] ED on 01/31/20 with history of breakthrough seizure 01/30/[address] prompting ED presentation w/ discharge following regimen dosing who returns 01/31/20, found per police on the ground. 1. Acute Encephalopathy secondary to Acute Breakthrough seizure suspected secondary to medication noncompliance, complicated by substance abuse, possible malingering versus conversion: Patient poorly compliant, noting she is on Keppra but no rx filled since 03/2019, additionally noted valproic acid level 125 which is not one of her medications, she was given dose x 1 of keppra and lamictal in the ED during earlier presentation 01/30/20 and at that time had a suppose it seizure while at court which was the reason she was brought to the ED for evaluation initially. Will admit to PCU, maintain on seizures precautions, continue hydration, continue home keppra prior noted regimen, not listed as being on lamictal, will have pharmacy assist in clarifying her current medications but audit does not demonstrate any recent fills, repeat valproic acid level in AM, repeat AM CBC, CMP, continue treatment of possible UTI. Given patient presentation and evaluation some suspicion for conversion versus malingering especially given recent court case. 2. Pending COVID-19 testing: Given pending lab obtained earlier 01/30/20 will maintain in precautions as patient is supposed to be self isolating and evidenced by her being found outside not complying. Pending rapid antigen per ED. 3. Acute Urinary Tract Infection: UA upon ED evaluation remarkable, pending UCx, continue IVFs, monitor I/Os, continue IV Rocephin w/ transition as able pending sensitivities and speciation. 4. 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 Case management consulted for substance abuse. 5. Depression: We will continue patient home amitriptyline regimen. 6. GERD: We will continue patient home omeprazole. 7. DVT prophylaxis: Low risk, encourage ambulation once improved. OBSV E&M: 88403 Initial observation care L3
[2020-01-31] MEDS: Ceftriaxone 1 GM/50 ML BAG IV (03:00)
[2020-01-31 03:25] LABS: Probe Check PASS; Specimen Processing Control PASS
[2020-01-31] MEDS: 0.9% Normal Saline 1,000 ML 150 ML IV ×3 (04:40→17:48)
[2020-01-31 06:30] LABS: Absolute Lymphocyte Count 1.84 X10^3/uL (0.83-4.51); Absolute Neutrophil Count 4.3 X10^3/uL (2.0-7.7); Basophil# 0.03 X10^3/uL; Basophil% 0.4 % (0-1); Eosinophil# 0.03 X10^3/uL; Eosinophils% 0.4 % (0-5); Hematocrit 33.4 % (37-47); Hemoglobin 10.9 g/dL (12.0-15.0); Lymphocyte # 1.84 X10^3/ul (4.0); Lymphocyte % 25.5 % (19-41); Mean Corp Hgb Conc 32.6 g/dL (32-36); Mean Corpuscular Hgb 33.4 pg (27.0-32.0); Mean Corpuscular Volume 102.5 fL (81-99); Mean Platelet Vol. 9.7 fl (6.2-12.0); Monocyte# 1.01 X10^3/uL; NRBC Flagged by Analyzer 0 % (0-5); Neutrophil # 4.25 X10^3/uL (2.7-7.7); Platelet Count 231 K/mm3 (150-450); RBC Distribution Width CV 12.7 % (11.6-14.6); RBC Distribution Width SD 47.4 fl (35.1-43.9); Red Blood Count 3.26 M/mm3 (4.2-5.4); White Blood Count 7.2 K/mm3 (4.4-11.0)
[2020-01-31 06:57] LABS: ALB/GLOB Ratio 0.9 RATIO (0.9-2.4); AST(SGOT) 14 U/L (15-37); Alanine Aminotransfer ALT/SGPT 16 U/L (13-56); Albumin, Serum 2.9 g/dL (3.2-5.0); Alkaline Phosphatase 69 U/L (45-117); Anion Gap 5 (5-15); BUN 18 mg/dL (7-18); BUN/Creat Ratio 31.5 RATIO (10-20); Calcium,Total 8.1 mg/dL (8.5-10.1); Chloride 110 mmol/L (98-107); Creatinine, Serum 0.57 mg/dL (0.55-1.02); EST Glomerular Filtration Rate 124 mL/min (>60); Est Glom Filt Rate - Afr Amer 151 mL/min (>60); Estimated Creatinine Clearance 114.42 ml/min; Globulin 3.2 g/dL (2.2-4.2); Glucose 73 mg/dL (74-106); Potassium 3.2 mmol/L (3.5-5.1); Protein, Total 6.1 g/dL (6.4-8.2); Sodium Level 143 mmol/L (136-145)
[2020-01-31 07:03] LABS: Valproic Acid (Depakene) Level 112 ug/mL (50-100)
--- NOTE | 2020-01-31 08:04 | PCM.PN.BLA ---
Progress Note Patient is a 39-year-old lady with history of polysubstance abuse admitted with breakthrough seizure. Patient has been admitted to monitored bed where she is currently undergoing evaluation Patient seen and examined, her initial assessment including history and physical and diagnostic data reviewed will follow Part of patient's management ordered an EEG MRI with and without contrast and consultation placed to [facility] telemetry neurology. Also requested for old records from [facility] Vital Signs/Narrative: Vital Signs Temp Pulse Resp BP Pulse Ox 01/31/20 07:51 96 01/31/20 04:55 83 01/31/20 04:15 97.9 F 90 17 116/83 H 97
[2020-01-31] MEDS: levETIRAcetam 750 MG Tablet 1500 MG PO ×2 (09:20→23:11)
[2020-01-31] MEDS: Pantoprazole Sodium 20 MG Tablet PO (09:20)
[2020-01-31] MEDS: Meloxicam 15 MG Tablet PO (09:20)
--- NOTE | 2020-01-31 11:41 | MRI_ITS ---
STUDY: MRI BRAIN WITH AND WITHOUT CONTRAST REASON FOR EXAM: Female, 39 years old. SEIZURES, DIZZINESS, CONFUSION TECHNIQUE: Standardized multiplanar fat and water weighted pulse sequences were obtained. IV DOTAREM 15CC was administered for the contrast portion of the examination. COMPARISON: Head CT dated January 31, 2020 FINDINGS: Normal size of the ventricles and extra-axial spaces for the patient''s age. Normal white matter tracts of the supratentorial brain. There is no evidence for recent intracranial ischemia or other cause of cytotoxic edema on diffusion weighted imaging (DWI). Normal T2* images of the brain without demonstrated susceptibility artifact. There is no demonstrated hemosiderin stain. Normal bilateral frontal poles, and orbital frontal and gyrus recti of the frontal lobes. Normal bilateral temporal tips of the temporal lobes. There are no white matter shear injuries (diffuse axonal injuries). There are no parenchymal hemorrhages or hematomas. There are no findings to suggest prior closed head parenchymal injury of the brain. No hydrocephalus is seen. No extra-axial fluid collection is present. Normal bilateral basal ganglia. Normal thalami. There is no extra-axial fluid accumulation. Normal flow voids within the major intracranial circulation suggesting patency by spin echo criteria. Normal venous enhancement. There is no enhancing intra-axial or extra-axial abnormality. No abnormal meningeal or dural or parenchymal enhancement. No enhancing lesions are present. No demonstrated mesial temporal atrophy or significant sclerosis. Normal sella turcica, pituitary gland, infundibular stalk, optic chiasm and hypothalamus. Normal tectal plate and pineal gland. Normal midbrain, dai and medulla. Normal cerebellum. Normal basal cisterns. Normal bilateral temporal bones. Normal bilateral internal auditory canals. No demonstrated orbital abnormality, within the constraints of a routine brain study. Normal visualized paranasal sinuses. Normal calvarium and skull base. Normal visualized soft tissue structures. Normal visualized upper cervical spine. MRI/Brain W/WO Contrast IMPRESSION: 1. Negative unenhanced and enhanced MRI of the brain. 2. No abnormal meningeal or dural or parenchymal enhancement. No enhancing lesions are present. No demonstrated mesial temporal atrophy or significant sclerosis. Electronically Signed: Russell Bolton MD at 20:04 EST , Service support ,
--- NOTE | 2020-01-31 11:43 | TELEMED_ITS ---
[facility] Telemed has confirmed receipt of a request for visit. This document confirms receipt of the order initiating the consult. To find the results of the consultation, please view the patient's reports for the scanned Telemed Consult.
[2020-01-31] MEDS: Acetaminophen 325 MG Tablet 650 MG PO ×2 (15:11→23:11)
--- NOTE | 2020-01-31 15:31 | CASEMGMT ---
SW met with patient, introduced self and role at [facility]. SW asked patient about her drug use. She said she does not use anymore. She said that is in the past. She has not used in awhile. She went to treatment in [place]. SW commended her on her sobriety. Gwendolyn RAMIREZ MSW
[2020-01-31] MEDS: Amitriptyline 100 MG Tablet 300 MG PO (23:11)
[2020-02-01] VITALS (12 sets, daily range): BP systolic 124–139; BP diastolic 78–100; PULSE 72–89; RESP 16–18; TEMP 36.4–36.9; O2SAT 92–98
[2020-02-01] MEDS: 0.9% Normal Saline 1,000 ML 150 ML IV ×2 (00:41→06:44)
[2020-02-01] MEDS: Acetaminophen 325 MG Tablet 650 MG PO (05:15)
[2020-02-01] MEDS: Pantoprazole Sodium 20 MG Tablet PO (08:36)
[2020-02-01] MEDS: Meloxicam 15 MG Tablet PO (08:36)
[2020-02-01] MEDS: levETIRAcetam 750 MG Tablet 1500 MG PO ×2 (08:37→21:43)
--- NOTE | 2020-02-01 13:02 | PN_ITS ---
<Priyanka Johnson SOUND ENGINEER AUDIO CONTROL - Last Filed: 02/01/20 13:18> Patient Problems: Active and Suspected Problems Seizure (Acute) UTI (urinary tract infection) (Acute) Acute encephalopathy (Acute) Subjective: Patient seen and examined. Denies further seizure activity. States she is having difficulty with her speech and complains of left lower extremity weakness. Patient's report of symptoms and exam are inconsistent. Patient reports she is homeless. Requesting SNF. - Physical Exam Vitals/I&O's: Vital Signs Temp Pulse Resp BP Pulse Ox 97.6 F L 78 16 129/94 H 94 02/01/20 10:00 02/01/20 10:00 02/01/20 10:00 02/01/20 10:00 02/01/20 10:00 Oxygen Delivery Method Room Air Weight: 170 lb 13.732 oz Body Mass Index (BMI) 29.3 Finger Stick Blood Glucose 62 Intake and Output for Last 24 Hours 01/30/20 01/31/20 02/01/20 23:59 23:59 23:59 Intake Total 3759.5 / 3759.5 1922.5 / 1922.5 Output Total 0 / 0 Balance 3759.5 / 3759.5 1922.5 / 1922.5 General: Alert, Oriented x3, Cooperative HEENT: Atraumatic, PERRLA, EOMI, Normocephalic Neck: Supple, No JVD, Negative Carotid Bruits Lungs: Clear to auscultation, Normal air movement Cardiovascular: Regular rate, No murmurs Abdomen: Bowel Sounds Present, Soft, Non Tender, Non-Distended Extremities: No clubbing, No cyanosis, No edema, Capillary Refill Less than 3 Seconds Skin: No rashes, No breakdown Musculoskeletal: No Tenderness to Palpation of Joints or Extremities Neurological: Cranial nerves II-XII grossly intact, Neuro grossly intact, - - Subjective left lower extremity weakness Psych/Mental Status: Normal Affect, Appropriate Microbiology Past 72 Hours 01/31/20 01:30 Urine, Clean Catch Urine Culture - Preliminary Presumptive E. coli Current Medications Acetaminophen (Acetaminophen 325 Mg Tablet) 650 mg PO Q6H PRN PRN PRN Reason: Pain Score 1-10/Temp > 100.7 F Last Admin: 02/01/20 05:15 Dose: 650 mg Documented by: Al Hydroxide/Mg Hydroxide (Mag Hydrox/Al Hydrox/Simeth 30 Ml Udc) 30 ml PO Q6H PRN PRN PRN Reason: Gastric Burning Albuterol Sulfate (Albuterol 2.5 Mg/3 Ml Vial.Neb.) 2.5 mg INHALATION Q2H PRN PRN PRN Reason: Dyspnea, wheezing Amitriptyline HCl (Amitriptyline 100 Mg Tablet) 300 mg PO QHS [facility] Last Admin: 01/31/20 23:11 Dose: 300 mg Documented by: Guaifenesin (Guaifenesin 10 Ml Udc (200mg/10ml)) 20 ml PO Q4H PRN PRN PRN Reason: COUGH Hydralazine HCl (Hydralazine 20 Mg/Ml Vial) 10 mg IV Q4H PRN PRN PRN Reason: SBP > 160 Sodium Chloride () 1,000 mls @ 150 mls/hr IV .[id number] [facility] Last Admin: 02/01/20 06:44 Dose: 150 mls/hr Documented by: Ceftriaxone Sodium 2 gm/ (Sodium Chloride) 50 mls @ 100 mls/hr IV Q24 [facility] Last Infusion: 02/01/20 11:05 Dose: Infused Documented by: Sodium Chloride () 250 mls @ 15 mls/hr IV .[id number] PRN PRN Reason: Saline Flush Sodium Chloride () 250 mls @ 15 mls/hr IV .[id number] PRN PRN Reason: Additional IVPB Infusion Iopamidol (Contrast Allergy Safety Check) 0 ml IV X1 [facility] Last Admin: 02/01/20 11:58 Dose: Not Given Documented by: Levetiracetam (Levetiracetam 750 Mg Tablet) 1,500 mg PO BID [facility] Last Admin: 02/01/20 08:37 Dose: 1,500 mg Documented by: Lorazepam (Lorazepam 2 Mg/Ml Syringe) 1 mg IV X1 PRN PRN Reason: seizure activity Magnesium Hydroxide (Magnesium Hydroxide 30 Ml Udc) 30 ml PO DAILY PRN PRN PRN Reason: Constipation Melatonin (Melatonin 3 Mg Tablet) 3 mg PO QHS PRN PRN PRN Reason: INSOMNIA Meloxicam (Meloxicam 15 Mg Tablet) 15 mg PO DAILY [facility] Last Admin: 02/01/20 08:36 Dose: 15 mg Documented by: Nitroglycerin (Nitroglycerin (Inpatient Use) 0.4 Mg Tab.Subl) 0.4 mg SUBLINGUAL Q5M PRN PRN Reason: CARDIAC/CHEST PAIN Ondansetron HCl (Ondansetron 4 Mg/2 Ml Vial) 4 mg IV Q8H PRN PRN PRN Reason: NAUSEA/VOMITING Pantoprazole Sodium (Pantoprazole Sodium 20 Mg Tablet) 20 mg PO DAILY [facility] Last Admin: 02/01/20 08:36 Dose: 20 mg Documented by: Potassium Chloride (Potassium Chloride 20 Meq Tablet) 20 meq PO BIDCM [facility] Last Admin: 02/01/20 08:36 Dose: 20 meq Documented by: Psyllium Hydrophilic Mucilloid (Psyllium 1 Packet) 1 packet PO DAILY PRN PRN PRN Reason: Constipation Senna/Docusate Sodium (Senna/Docusate Sodium 1 Tablet) 2 tablet PO BID PRN PRN PRN Reason: Constipation Sodium Chloride (0.9% Saline Lock 10 Ml Syringe) 10 - 40 ml IV UD PRN PRN Reason: SALINE FLUSH Throat Lozenges (Benzocaine/Menthol 1 Lozenge) 1 lozenge MUCOUS MEM Q2H PRN PRN PRN Reason: SORE THROAT Medical Necessity - Tobacco Use Smoking Status: Never smoker Tobacco Use: Non-smoker Assessment/Plan All Active Problems Seizure (Acute) UTI (urinary tract infection) (Acute) Methamphetamine intoxication (Acute) Acute encephalopathy (Acute) Altered mental status (Acute) 1. Possible breakthrough seizure-normal MRI of brain. EEG without seizure activity. Neurology recommends continuing home Keppra regimen. Add Depakote 500 mg twice daily. Patient has not had seizure activity in hospital. If she has recurrent seizure activity, neurology recommends continuous video EEG monitoring in an epilepsy program. Seizure precautions. Patient requesting SNF. She is currently homeless. [facility]. Patient's information is inconsistent. PT/OT. 2. Acute E. coli UTI-continue IV Rocephin. 3. Acute encephalopathy-secondary to #1/#2. Resolved. 4. History of polysubstance abuse-tox screen negative. Denies recent use however has been in [facility]. 5. Depression-continue amitriptyline. 6. GERD-continue PPI. DVT prophylaxis-low risk, encourage ambulation Discharge planning: Patient requesting SNF, will need pre-CERT This patient was seen by ADALID Chance under the supervision of Dr. Azul. <Roddy Azul F - Last Filed: 02/01/20 19:54> - Physical Exam Vitals/I&O's: Vital Signs Temp Pulse Resp BP Pulse Ox 98.0 F 87 16 124/78 H 97 02/01/20 14:30 02/01/20 15:35 02/01/20 14:30 02/01/20 14:30 02/01/20 14:30 Oxygen Delivery Method Room Air Weight: 170 lb 13.732 oz Body Mass Index (BMI) 29.3 Finger Stick Blood Glucose 62 Intake and Output for Last 24 Hours 01/30/20 01/31/20 02/01/20 23:59 23:59 23:59 Intake Total 3759.5 / 3759.5 3342.5 / 3342.5 Output Total 0 / 0 Balance 3759.5 / 3759.5 3342.5 / 3342.5 Microbiology Past 72 Hours 01/31/20 01:30 Urine, Clean Catch Urine Culture - Preliminary Presumptive E. coli Current Medications Acetaminophen (Acetaminophen 325 Mg Tablet) 650 mg PO Q6H PRN PRN PRN Reason: Pain Score 1-10/Temp > 100.7 F Last Admin: 02/01/20 05:15 Dose: 650 mg Documented by: Al Hydroxide/Mg Hydroxide (Mag Hydrox/Al Hydrox/Simeth 30 Ml Udc) 30 ml PO Q6H PRN PRN PRN Reason: Gastric Burning Albuterol Sulfate (Albuterol 2.5 Mg/3 Ml Vial.Neb.) 2.5 mg INHALATION Q2H PRN PRN PRN Reason: Dyspnea, wheezing Amitriptyline HCl (Amitriptyline 100 Mg Tablet) 300 mg PO QHS [facility] Last Admin: 01/31/20 23:11 Dose: 300 mg Documented by: Divalproex Sodium ([facility] Mg [facility] Admin: 02/01/20 18:21 Dose: 500 mg Documented by: Guaifenesin (Guaifenesin 10 Ml Udc (200mg/10ml)) 20 ml PO Q4H PRN PRN PRN Reason: COUGH Hydralazine HCl (Hydralazine 20 Mg/Ml Vial) 10 mg IV Q4H PRN PRN PRN Reason: SBP > 160 Ceftriaxone Sodium 2 gm/ (Sodium Chloride) 50 mls @ 100 mls/hr IV Q24 [facility] Last Infusion: 02/01/20 11:05 Dose: Infused Documented by: Sodium Chloride () 250 mls @ 15 mls/hr IV .[id number] PRN PRN Reason: Saline Flush Sodium Chloride () 250 mls @ 15 mls/hr IV .[id number] PRN PRN Reason: Additional IVPB Infusion Iopamidol (Contrast Allergy Safety Check) 0 ml IV X1 [facility] Last Admin: 02/01/20 11:58 Dose: Not Given Documented by: Levetiracetam (Levetiracetam 750 Mg Tablet) 1,500 mg PO BID [facility] Last Admin: 02/01/20 08:37 Dose: 1,500 mg Documented by: Lorazepam (Lorazepam 2 Mg/Ml Syringe) 1 mg IV X1 PRN PRN Reason: seizure activity Magnesium Hydroxide (Magnesium Hydroxide 30 Ml Udc) 30 ml PO DAILY PRN PRN PRN Reason: Constipation Melatonin (Melatonin 3 Mg Tablet) 3 mg PO QHS PRN PRN PRN Reason: INSOMNIA Meloxicam (Meloxicam 15 Mg Tablet) 15 mg PO DAILY [facility] Last Admin: 02/01/20 08:36 Dose: 15 mg Documented by: Nitroglycerin (Nitroglycerin (Inpatient Use) 0.4 Mg Tab.Subl) 0.4 mg SUBLINGUAL Q5M PRN PRN Reason: CARDIAC/CHEST PAIN Ondansetron HCl (Ondansetron 4 Mg/2 Ml Vial) 4 mg IV Q8H PRN PRN PRN Reason: NAUSEA/VOMITING Pantoprazole Sodium (Pantoprazole Sodium 20 Mg Tablet) 20 mg PO DAILY [facility] Last Admin: 02/01/20 08:36 Dose: 20 mg Documented by: Potassium Chloride (Potassium Chloride 20 Meq Tablet) 20 meq PO BIDCM [facility] Last Admin: 02/01/20 18:21 Dose: 20 meq Documented by: Psyllium Hydrophilic Mucilloid (Psyllium 1 Packet) 1 packet PO DAILY PRN PRN PRN Reason: Constipation Senna/Docusate Sodium (Senna/Docusate Sodium 1 Tablet) 2 tablet PO BID PRN PRN PRN Reason: Constipation Sodium Chloride (0.9% Saline Lock 10 Ml Syringe) 10 - 40 ml IV UD PRN PRN Reason: SALINE FLUSH Throat Lozenges (Benzocaine/Menthol 1 Lozenge) 1 lozenge MUCOUS MEM Q2H PRN PRN PRN Reason: SORE THROAT Addendum: Dr. Azul I personally examined the patient and reviewed the chart. I agree with the above. 39-year-old female who [facility]. She states that she has seizures multiple times a day. EEG was obtained which was unremarkable and an MRI was also normal. 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 twice daily and if she continued to have seizures to increase these to 750 mg twice daily and transfer her to a facility that can do continuous video EEG monitoring. She is unable to go home and would like to go to a alf facility if possible. We will attempt to arrange this. As for the UTI, will continue with antibiotic management, urine culture is positive for E. coli greater than 100,000 CFU. OBSV E&M: [id number] Subsequent observation care L2
[2020-02-01] MEDS: Divalproex Sodium 250 MG Tablet 500 MG PO ×2 (13:44→18:21)
--- NOTE | 2020-02-01 15:23 | CASEMGMT ---
Patient told RN she is homeless. Therapy saw patient and she needs continued therapy. SW met with patient. She said she already spoke with [facility] and [facility] and they are full. SW offered to call [facility] in [place] and she does not want to go to [place] as that is where her ex is living. SW asked if she feels like she needs to go to a fci for therapy. She said, Yes, I will need to learn to walk all over again. SW did note that patient was dragging her leg inconsistently with therapy and it is questionable if this is legitimate. However, SW did give her a list of facilities that are in network with her insurance. She looked at the list and said any facility that is in [facility] and in network with her insurance is fine. JORDY faxed referrals to [facility], [facility], and [facility]. Await responses. Gwendolyn RAMIREZ MSW
--- NOTE | 2020-02-01 16:42 | CASEMGMT ---
Charley from [facility] called and said she has to send patient's information to their corporate to see if they would be willing to accept patient. She said she may not find out today, but if she does she will call . SW received a call from [facility] and they are looking at the referral. SW has not heard anything from [facility]. Patient may be here through the weekend until a place can be found for patient. Gwendolyn RAMIREZ MSW
[2020-02-01] MEDS: Amitriptyline 100 MG Tablet 300 MG PO (21:42)
[2020-02-02] VITALS (7 sets, daily range): BP systolic 116–155; BP diastolic 79–104; PULSE 74–94; RESP 16–18; TEMP 36.4–36.9; O2SAT 90–100
[2020-02-02 08:23] LABS: Hematocrit 37.5 % (37-47); Hemoglobin 11.9 g/dL (12.0-15.0); Mean Corp Hgb Conc 31.7 g/dL (32-36); Mean Corpuscular Hgb 32.7 pg (27.0-32.0); Mean Platelet Vol. 9.4 fl (6.2-12.0); Platelet Count 257 K/mm3 (150-450); RBC Distribution Width CV 13.1 % (11.6-14.6); RBC Distribution Width SD 48.3 fl (35.1-43.9); Red Blood Count 3.64 M/mm3 (4.2-5.4); White Blood Count 5.7 K/mm3 (4.4-11.0)
[2020-02-02 08:43] LABS: Anion Gap 3 (5-15); BUN 9 mg/dL (7-18); BUN/Creat Ratio 12.1 RATIO (10-20); Calcium,Total 8.3 mg/dL (8.5-10.1); Chloride 110 mmol/L (98-107); Creatinine, Serum 0.74 mg/dL (0.55-1.02); EST Glomerular Filtration Rate 92 mL/min (>60); Est Glom Filt Rate - Afr Amer 111 mL/min (>60); Estimated Creatinine Clearance 88.14 ml/min; Glucose 69 mg/dL (74-106); Potassium 4.2 mmol/L (3.5-5.1); Sodium Level 142 mmol/L (136-145)
[2020-02-02] MEDS: Divalproex Sodium 250 MG Tablet 500 MG PO ×2 (09:20→17:45)
[2020-02-02] MEDS: levETIRAcetam 750 MG Tablet 1500 MG PO ×2 (09:21→21:36)
[2020-02-02] MEDS: Meloxicam 15 MG Tablet PO (09:22)
[2020-02-02] MEDS: Pantoprazole Sodium 20 MG Tablet PO (09:22)
--- NOTE | 2020-02-02 11:56 | PCM.PROGNOTE ---
<Priyanka Johnson LAUNCH ENGINEER - Last Filed: 02/02/20 12:03> Patient Problems: Active and Suspected Problems Seizure (Acute) UTI (urinary tract infection) (Acute) Acute encephalopathy (Acute) Subjective: Patient seen and examined. Asking for gabapentin which she reports she was taking at home. Per [facility] pharmacy medication list, patient has not been prescribed gabapentin. She continues to report her left leg feels weak. Denies seizure activity. - Physical Exam Vitals/I&O's: Vital Signs Temp Pulse Resp BP Pulse Ox 97.9 F 85 18 116/87 H 90 02/02/20 09:13 02/02/20 09:13 02/02/20 09:13 02/02/20 09:13 02/02/20 09:13 Oxygen Delivery Method Room Air Weight: 170 lb 13.732 oz Body Mass Index (BMI) 29.3 Finger Stick Blood Glucose 62 Intake and Output for Last 24 Hours 01/31/20 02/01/20 02/02/20 23:59 23:59 23:59 Intake Total 3759.5 / 3759.5 3342.5 / 3462.5 170 / 170 Output Total 0 / 0 Balance 3759.5 / 3759.5 3342.5 / 3462.5 170 / 170 General: Alert, Oriented x3, Cooperative HEENT: Atraumatic, PERRLA, EOMI, Normocephalic Neck: Supple, No JVD, Negative Carotid Bruits Lungs: Clear to auscultation, Normal air movement Cardiovascular: Regular rate, No murmurs Abdomen: Bowel Sounds Present, Soft, Non Tender, Non-Distended Extremities: No clubbing, No cyanosis, No edema, Capillary Refill Less than 3 Seconds Skin: No rashes, No breakdown Musculoskeletal: No Tenderness to Palpation of Joints or Extremities Neurological: Cranial nerves II-XII grossly intact, Neuro grossly intact Psych/Mental Status: Flat Affect Microbiology Past 72 Hours 01/31/20 01:30 Urine, Clean Catch Urine Culture - Final Presumptive E. coli Laboratory Results 02/02/20 07:34: WBC 5.7, RBC 3.64 L, Hgb 11.9 L, Hct 37.5, MCV 103.0 H, MCH 32.7 H, MCHC 31.7 L, RDW Std Deviation 48.3 H, RDW Coeff of Walt 13.1, Plt Count 257, MPV 9.4 02/02/20 07:34: Sodium 142, Potassium 4.2, Chloride 110 H, Carbon Dioxide 29.0, Anion Gap 3 L, BUN 9, Creatinine 0.74, Estim Creat Clear Calc 88.14, Est GFR (MDRD) Af Amer 111, Est GFR (MDRD) Non-Af 92, BUN/Creatinine Ratio 12.1, Glucose 69 L, Calcium 8.3 L Current Medications Acetaminophen (Acetaminophen 325 Mg Tablet) 650 mg PO Q6H PRN PRN PRN Reason: Pain Score 1-10/Temp > 100.7 F Last Admin: 02/01/20 05:15 Dose: 650 mg Documented by: Al Hydroxide/Mg Hydroxide (Mag Hydrox/Al Hydrox/Simeth 30 Ml Udc) 30 ml PO Q6H PRN PRN PRN Reason: Gastric Burning Albuterol Sulfate (Albuterol 2.5 Mg/3 Ml Vial.Neb.) 2.5 mg INHALATION Q2H PRN PRN PRN Reason: Dyspnea, wheezing Amitriptyline HCl (Amitriptyline 100 Mg Tablet) 300 mg PO QHS [facility] Last Admin: 02/01/20 21:42 Dose: 300 mg Documented by: Divalproex Sodium (Divalproex Sodium 250 Mg Tablet) 500 mg PO BIDCM [facility] Last Admin: 02/02/20 09:20 Dose: 500 mg Documented by: Guaifenesin (Guaifenesin 10 Ml Udc (200mg/10ml)) 20 ml PO Q4H PRN PRN PRN Reason: COUGH Hydralazine HCl (Hydralazine 20 Mg/Ml Vial) 10 mg IV Q4H PRN PRN PRN Reason: SBP > 160 Ceftriaxone Sodium 2 gm/ (Sodium Chloride) 50 mls @ 100 mls/hr IV Q24 [facility] Last Infusion: 02/02/20 10:37 Dose: Infused Documented by: Sodium Chloride () 250 mls @ 15 mls/hr IV .[id number] PRN PRN Reason: Saline Flush Sodium Chloride () 250 mls @ 15 mls/hr IV .[id number] PRN PRN Reason: Additional IVPB Infusion Iopamidol (Contrast Allergy Safety Check) 0 ml IV X1 [facility] Last Admin: 02/01/20 11:58 Dose: Not Given Documented by: Levetiracetam (Levetiracetam 750 Mg Tablet) 1,500 mg PO BID [facility] Last Admin: 02/02/20 09:21 Dose: 1,500 mg Documented by: Lorazepam (Lorazepam 2 Mg/Ml Syringe) 1 mg IV X1 PRN PRN Reason: seizure activity Magnesium Hydroxide (Magnesium Hydroxide 30 Ml Udc) 30 ml PO DAILY PRN PRN PRN Reason: Constipation Melatonin (Melatonin 3 Mg Tablet) 3 mg PO QHS PRN PRN PRN Reason: INSOMNIA Meloxicam (Meloxicam 15 Mg Tablet) 15 mg PO DAILY [facility] Last Admin: 02/02/20 09:22 Dose: 15 mg Documented by: Nitroglycerin (Nitroglycerin (Inpatient Use) 0.4 Mg Tab.Subl) 0.4 mg SUBLINGUAL Q5M PRN PRN Reason: CARDIAC/CHEST PAIN Ondansetron HCl (Ondansetron 4 Mg/2 Ml Vial) 4 mg IV Q8H PRN PRN PRN Reason: NAUSEA/VOMITING Pantoprazole Sodium (Pantoprazole Sodium 20 Mg Tablet) 20 mg PO DAILY [facility] Last Admin: 02/02/20 09:22 Dose: 20 mg Documented by: Potassium Chloride (Potassium Chloride 20 Meq Tablet) 20 meq PO BIDCM [facility] Last Admin: 02/02/20 09:20 Dose: 20 meq Documented by: Psyllium Hydrophilic Mucilloid (Psyllium 1 Packet) 1 packet PO DAILY PRN PRN PRN Reason: Constipation Senna/Docusate Sodium (Senna/Docusate Sodium 1 Tablet) 2 tablet PO BID PRN PRN PRN Reason: Constipation Sodium Chloride (0.9% Saline Lock 10 Ml Syringe) 10 - 40 ml IV UD PRN PRN Reason: SALINE FLUSH Throat Lozenges (Benzocaine/Menthol 1 Lozenge) 1 lozenge MUCOUS MEM Q2H PRN PRN PRN Reason: SORE THROAT Medical Necessity - Tobacco Use Smoking Status: Never smoker Tobacco Use: Non-smoker Assessment/Plan All Active Problems Seizure (Acute) UTI (urinary tract infection) (Acute) Methamphetamine intoxication (Acute) Acute encephalopathy (Acute) Altered mental status (Acute) 1. Possible breakthrough seizure-normal MRI of brain. EEG without seizure activity. Neurology recommends continuing home Keppra regimen. Add Depakote 500 mg twice daily. Patient has not had seizure activity in hospital. If she has recurrent seizure activity, neurology recommends continuous video EEG monitoring in an epilepsy program. Seizure precautions. Patient requesting SNF. She is currently homeless. Recently discharged from shelter due to medical issues. Patient's information is inconsistent. PT/OT. Awaiting SNF acceptance. 2. Acute E. coli UTI-continue IV Rocephin. 3. Acute encephalopathy-secondary to #1/#2. Resolved. 4. History of polysubstance abuse-tox screen negative. Denies recent use however has been in shelter recently due to drug use. 5. Depression-continue amitriptyline. 6. GERD-continue PPI. DVT prophylaxis-low risk, encourage ambulation Discharge planning: Patient requesting SNF, will need pre-CERT This patient was seen by ADALID Chance under the supervision of Dr. Azul. <Roddy Azul F - Last Filed: 02/02/20 18:10> - Physical Exam Vitals/I&O's: Vital Signs Temp Pulse Resp BP Pulse Ox 98.1 F 82 18 121/79 H 98 02/02/20 16:29 02/02/20 16:29 02/02/20 16:29 02/02/20 16:29 02/02/20 16:29 Oxygen Delivery Method Room Air Weight: 170 lb 13.732 oz Body Mass Index (BMI) 29.3 Finger Stick Blood Glucose 62 Intake and Output for Last 24 Hours 01/31/20 02/01/20 02/02/20 23:59 23:59 23:59 Intake Total 3759.5 / 3759.5 3342.5 / 3462.5 1170 / 1170 Output Total 0 / 0 Balance 3759.5 / 3759.5 3342.5 / 3462.5 1170 / 1170 Microbiology Past 72 Hours 01/31/20 01:30 Urine, Clean Catch Urine Culture - Final Presumptive E. coli Laboratory Results 02/02/20 07:34: WBC 5.7, RBC 3.64 L, Hgb 11.9 L, Hct 37.5, MCV 103.0 H, MCH 32.7 H, MCHC 31.7 L, RDW Std Deviation 48.3 H, RDW Coeff of Walt 13.1, Plt Count 257, MPV 9.4 02/02/20 07:34: Sodium 142, Potassium 4.2, Chloride 110 H, Carbon Dioxide 29.0, Anion Gap 3 L, BUN 9, Creatinine 0.74, Estim Creat Clear Calc 88.14, Est GFR (MDRD) Af Amer 111, Est GFR (MDRD) Non-Af 92, BUN/Creatinine Ratio 12.1, Glucose 69 L, Calcium 8.3 L Current Medications Acetaminophen (Acetaminophen 500 Mg Tablet) 1,000 mg PO Q8H PRN PRN PRN Reason: Pain Score 1-10/Temp > 100.7 F Last Admin: 02/02/20 17:49 Dose: 1,000 mg Documented by: Al Hydroxide/Mg Hydroxide (Mag Hydrox/Al Hydrox/Simeth 30 Ml Udc) 30 ml PO Q6H PRN PRN PRN Reason: Gastric Burning Albuterol Sulfate (Albuterol 2.5 Mg/3 Ml Vial.Neb.) 2.5 mg INHALATION Q2H PRN PRN PRN Reason: Dyspnea, wheezing Amitriptyline HCl (Amitriptyline 100 Mg Tablet) 300 mg PO QHS [facility] Last Admin: 02/01/20 21:42 Dose: 300 mg Documented by: Divalproex Sodium (Divalproex Sodium 250 Mg Tablet) 500 mg PO BIDCM [facility] Last Admin: 02/02/20 17:45 Dose: 500 mg Documented by: Guaifenesin (Guaifenesin 10 Ml Udc (200mg/10ml)) 20 ml PO Q4H PRN PRN PRN Reason: COUGH Hydralazine HCl (Hydralazine 20 Mg/Ml Vial) 10 mg IV Q4H PRN PRN PRN Reason: SBP > 160 Ceftriaxone Sodium 2 gm/ (Sodium Chloride) 50 mls @ 100 mls/hr IV Q24 [facility] Last Infusion: 02/02/20 10:37 Dose: Infused Documented by: Sodium Chloride () 250 mls @ 15 mls/hr IV .[id number] PRN PRN Reason: Saline Flush Sodium Chloride () 250 mls @ 15 mls/hr IV .[id number] PRN PRN Reason: Additional IVPB Infusion Iopamidol (Contrast Allergy Safety Check) 0 ml IV X1 [facility] Last Admin: 02/02/20 13:00 Dose: Not Given Documented by: Levetiracetam (Levetiracetam 750 Mg Tablet) 1,500 mg PO BID [facility] Last Admin: 02/02/20 09:21 Dose: 1,500 mg Documented by: Lorazepam (Lorazepam 2 Mg/Ml Syringe) 1 mg IV X1 PRN PRN Reason: seizure activity Magnesium Hydroxide (Magnesium Hydroxide 30 Ml Udc) 30 ml PO DAILY PRN PRN PRN Reason: Constipation Melatonin (Melatonin 3 Mg Tablet) 3 mg PO QHS PRN PRN PRN Reason: INSOMNIA Meloxicam (Meloxicam 15 Mg Tablet) 15 mg PO DAILY [facility] Last Admin: 02/02/20 09:22 Dose: 15 mg Documented by: Nitroglycerin (Nitroglycerin (Inpatient Use) 0.4 Mg Tab.Subl) 0.4 mg SUBLINGUAL Q5M PRN PRN Reason: CARDIAC/CHEST PAIN Ondansetron HCl (Ondansetron 4 Mg/2 Ml Vial) 4 mg IV Q8H PRN PRN PRN Reason: NAUSEA/VOMITING Pantoprazole Sodium (Pantoprazole Sodium 20 Mg Tablet) 20 mg PO DAILY [facility] Last Admin: 02/02/20 09:22 Dose: 20 mg Documented by: Potassium Chloride (Potassium Chloride 20 Meq Tablet) 20 meq PO BIDCM [facility] Last Admin: 02/02/20 17:45 Dose: 20 meq Documented by: Psyllium Hydrophilic Mucilloid (Psyllium 1 Packet) 1 packet PO DAILY PRN PRN PRN Reason: Constipation Senna/Docusate Sodium (Senna/Docusate Sodium 1 Tablet) 2 tablet PO BID PRN PRN PRN Reason: Constipation Sodium Chloride (0.9% Saline Lock 10 Ml Syringe) 10 - 40 ml IV UD PRN PRN Reason: SALINE FLUSH Throat Lozenges (Benzocaine/Menthol 1 Lozenge) 1 lozenge MUCOUS MEM Q2H PRN PRN PRN Reason: SORE THROAT Addendum: Dr. Azul I personally examined the patient and reviewed the chart. I agree with the above. 39-year-old female who was transferred from shelter due to medical issues. She states that she has seizures multiple times a day. EEG was obtained which was unremarkable and an MRI was also normal. 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 twice daily and if she continued to have seizures to increase these to 750 mg twice daily and transfer her to a facility that can do continuous video EEG monitoring. She is unable to go home and would like to go to a jail facility if possible. We will attempt to arrange this. As for the UTI, will continue with antibiotic management, urine culture is positive for E. coli greater than 100,000 CFU. 02/02/2020: Doing okay at does not appear to have had another seizure. Continue with Keppra and Depakote. She does have a pansensitive E. coli on her urine culture therefore can continue with Rocephin for total of 3 days, which she has completed. Placement is difficult as she is homeless and is needing significant support and assistance and additional therapy is being recommended by PT/OT. OBSV E&M: [id number] Subsequent observation care L2
[2020-02-02] MEDS: Acetaminophen 500 MG Tablet 1000 MG PO (17:49)
[2020-02-02] MEDS: Amitriptyline 100 MG Tablet 300 MG PO (21:36)
[2020-02-03 01:18] VITALS: BP 113/81; PULSE 83; RESP 18; TEMP 36.6; O2SAT 97
[2020-02-03] MEDS: Acetaminophen 500 MG Tablet 1000 MG PO ×3 (01:19→22:07)
[2020-02-03 06:00] VITALS: BP 128/94; PULSE 89; RESP 18; TEMP 36.4; O2SAT 98
[2020-02-03 09:34] VITALS: BP 114/76; PULSE 84; RESP 16; TEMP 36.8; O2SAT 97
[2020-02-03] MEDS: Divalproex Sodium 250 MG Tablet 500 MG PO ×2 (09:38→17:22)
[2020-02-03] MEDS: levETIRAcetam 750 MG Tablet 1500 MG PO ×2 (09:40→22:08)
[2020-02-03] MEDS: Meloxicam 15 MG Tablet PO (09:40)
[2020-02-03] MEDS: Pantoprazole Sodium 20 MG Tablet PO (09:40)
[2020-02-03 10:00] VITALS: O2SAT 96
--- NOTE | 2020-02-03 11:33 | PCM.PROGNOTE ---
<Priyanka Johnson COMMUNICATIONS EXECUTIVE - Last Filed: 02/03/20 11:35> Patient Problems: Active and Suspected Problems Seizure (Acute) UTI (urinary tract infection) (Acute) Acute encephalopathy (Acute) Subjective: Patient seen and examined. No acute events overnight. Resting comfortably in bed. - Physical Exam Vitals/I&O's: Vital Signs Temp Pulse Resp BP Pulse Ox 98.2 F 84 16 114/76 96 02/03/20 09:34 02/03/20 09:34 02/03/20 09:34 02/03/20 09:34 02/03/20 10:00 Oxygen Delivery Method Room Air Weight: 170 lb 13.732 oz Body Mass Index (BMI) 29.3 Finger Stick Blood Glucose 62 Intake and Output for Last 24 Hours 02/01/20 02/02/20 02/03/20 23:59 23:59 23:59 Intake Total 3342.5 / 3462.5 1170 / 1530 410 / 410 Output Total Balance 3342.5 / 3462.5 1170 / 1530 409 / 409 General: Alert, Oriented x3, Cooperative HEENT: Atraumatic, PERRLA, EOMI, Normocephalic Neck: Supple, No JVD, Negative Carotid Bruits Lungs: Clear to auscultation, Normal air movement Cardiovascular: Regular rate, No murmurs Abdomen: Bowel Sounds Present, Soft, Non Tender Extremities: No clubbing, No cyanosis, No edema, Capillary Refill Less than 3 Seconds Skin: No rashes, No breakdown Musculoskeletal: No Tenderness to Palpation of Joints or Extremities Neurological: Cranial nerves II-XII grossly intact, Neuro grossly intact Psych/Mental Status: Flat Affect Microbiology Past 72 Hours 01/31/20 01:30 Urine, Clean Catch Urine Culture - Final Presumptive E. coli Current Medications Acetaminophen (Acetaminophen 500 Mg Tablet) 1,000 mg PO Q8H PRN PRN PRN Reason: Pain Score 1-10/Temp > 100.7 F Last Admin: 02/03/20 09:41 Dose: 1,000 mg Documented by: Al Hydroxide/Mg Hydroxide (Mag Hydrox/Al Hydrox/Simeth 30 Ml Udc) 30 ml PO Q6H PRN PRN PRN Reason: Gastric Burning Albuterol Sulfate (Albuterol 2.5 Mg/3 Ml Vial.Neb.) 2.5 mg INHALATION Q2H PRN PRN PRN Reason: Dyspnea, wheezing Amitriptyline HCl (Amitriptyline 100 Mg Tablet) 300 mg PO QHS [facility] Last Admin: 02/02/20 21:36 Dose: 300 mg Documented by: Divalproex Sodium (Divalproex Sodium 250 Mg Tablet) 500 mg PO BIDCM [facility] Last Admin: 02/03/20 09:38 Dose: 500 mg Documented by: Guaifenesin (Guaifenesin 10 Ml Udc (200mg/10ml)) 20 ml PO Q4H PRN PRN PRN Reason: COUGH Hydralazine HCl (Hydralazine 20 Mg/Ml Vial) 10 mg IV Q4H PRN PRN PRN Reason: SBP > 160 Ceftriaxone Sodium 2 gm/ (Sodium Chloride) 50 mls @ 100 mls/hr IV Q24 [facility] Last Infusion: 02/03/20 10:38 Dose: Infused Documented by: Sodium Chloride () 250 mls @ 15 mls/hr IV .[id number] PRN PRN Reason: Saline Flush Sodium Chloride () 250 mls @ 15 mls/hr IV .[id number] PRN PRN Reason: Additional IVPB Infusion Iopamidol (Contrast Allergy Safety Check) 0 ml IV X1 [facility] Last Admin: 02/02/20 13:00 Dose: Not Given Documented by: Levetiracetam (Levetiracetam 750 Mg Tablet) 1,500 mg PO BID [facility] Last Admin: 02/03/20 09:40 Dose: 1,500 mg Documented by: Lorazepam (Lorazepam 2 Mg/Ml Syringe) 1 mg IV X1 PRN PRN Reason: seizure activity Magnesium Hydroxide (Magnesium Hydroxide 30 Ml Udc) 30 ml PO DAILY PRN PRN PRN Reason: Constipation Melatonin (Melatonin 3 Mg Tablet) 3 mg PO QHS PRN PRN PRN Reason: INSOMNIA Meloxicam (Meloxicam 15 Mg Tablet) 15 mg PO DAILY [facility] Last Admin: 02/03/20 09:40 Dose: 15 mg Documented by: Nitroglycerin (Nitroglycerin (Inpatient Use) 0.4 Mg Tab.Subl) 0.4 mg SUBLINGUAL Q5M PRN PRN Reason: CARDIAC/CHEST PAIN Ondansetron HCl (Ondansetron 4 Mg/2 Ml Vial) 4 mg IV Q8H PRN PRN PRN Reason: NAUSEA/VOMITING Pantoprazole Sodium (Pantoprazole Sodium 20 Mg Tablet) 20 mg PO DAILY [facility] Last Admin: 02/03/20 09:40 Dose: 20 mg Documented by: Potassium Chloride (Potassium Chloride 20 Meq Tablet) 20 meq PO BIDCM [facility] Last Admin: 02/03/20 09:38 Dose: 20 meq Documented by: Psyllium Hydrophilic Mucilloid (Psyllium 1 Packet) 1 packet PO DAILY PRN PRN PRN Reason: Constipation Senna/Docusate Sodium (Senna/Docusate Sodium 1 Tablet) 2 tablet PO BID PRN PRN PRN Reason: Constipation Sodium Chloride (0.9% Saline Lock 10 Ml Syringe) 10 - 40 ml IV UD PRN PRN Reason: SALINE FLUSH Throat Lozenges (Benzocaine/Menthol 1 Lozenge) 1 lozenge MUCOUS MEM Q2H PRN PRN PRN Reason: SORE THROAT Medical Necessity - Tobacco Use Smoking Status: Never smoker Tobacco Use: Non-smoker Assessment/Plan All Active Problems Seizure (Acute) UTI (urinary tract infection) (Acute) Methamphetamine intoxication (Acute) Acute encephalopathy (Acute) Altered mental status (Acute) 1. Possible breakthrough seizure-normal MRI of brain. EEG without seizure activity. Neurology recommends continuing home Keppra regimen. Add Depakote 500 mg twice daily. Patient has not had seizure activity in hospital. If she has recurrent seizure activity, neurology recommends continuous video EEG monitoring in an epilepsy program. Seizure precautions. Patient requesting SNF. She is currently homeless. Recently discharged from residential due to medical issues. Patient's information is inconsistent. PT/OT. Awaiting SNF acceptance. 2. Acute E. coli UTI-discontinue IV Rocephin. Transition to Duricef. 3. Acute encephalopathy-secondary to #1/#2. Resolved. 4. History of polysubstance abuse-tox screen negative. Denies recent use however has been in residential recently due to drug use. 5. Depression-continue amitriptyline. 6. GERD-continue PPI. DVT prophylaxis-low risk, encourage ambulation Discharge planning: Patient requesting SNF, will need pre-CERT This patient was seen by ADALID Chance under the supervision of Dr. Azul. <Roddy Azul - Last Filed: 02/03/20 18:02> - Physical Exam Vitals/I&O's: Vital Signs Temp Pulse Resp BP Pulse Ox 98.8 F 94 16 126/81 H 97 02/03/20 14:39 02/03/20 14:39 02/03/20 14:39 02/03/20 14:39 02/03/20 14:39 Oxygen Delivery Method Room Air Weight: 170 lb 13.732 oz Body Mass Index (BMI) 29.3 Finger Stick Blood Glucose 62 Intake and Output for Last 24 Hours 02/01/20 02/02/20 02/03/20 23:59 23:59 23:59 Intake Total 3342.5 / 3462.5 1170 / 1530 410 / 410 Output Total Balance 3342.5 / 3462.5 1170 / 1530 409 / 409 Microbiology Past 72 Hours 01/31/20 01:30 Urine, Clean Catch Urine Culture - Final Presumptive E. coli Current Medications Acetaminophen (Acetaminophen 500 Mg Tablet) 1,000 mg PO Q8H PRN PRN PRN Reason: Pain Score 1-10/Temp > 100.7 F Last Admin: 02/03/20 09:41 Dose: 1,000 mg Documented by: Al Hydroxide/Mg Hydroxide (Mag Hydrox/Al Hydrox/Simeth 30 Ml Udc) 30 ml PO Q6H PRN PRN PRN Reason: Gastric Burning Albuterol Sulfate (Albuterol 2.5 Mg/3 Ml Vial.Neb.) 2.5 mg INHALATION Q2H PRN PRN PRN Reason: Dyspnea, wheezing Amitriptyline HCl (Amitriptyline 100 Mg Tablet) 300 mg PO QHS [facility] Last Admin: 02/02/20 21:36 Dose: 300 mg Documented by: Cefadroxil (Cefadroxil 500 Mg Capsule) 1,000 mg PO BID [facility] Divalproex Sodium (Divalproex Sodium 250 Mg Tablet) [facility] Last Admin: 02/03/20 17:22 Dose: 500 mg Documented by: Guaifenesin (Guaifenesin 10 Ml Udc (200mg/10ml)) 20 ml PO Q4H PRN PRN PRN Reason: COUGH Hydralazine HCl (Hydralazine 20 Mg/Ml Vial) 10 mg IV Q4H PRN PRN PRN Reason: SBP > 160 Sodium Chloride () 250 mls @ 15 mls/hr IV .[id number] PRN PRN Reason: Saline Flush Sodium Chloride () 250 mls @ 15 mls/hr IV .[id number] PRN PRN Reason: Additional IVPB Infusion Levetiracetam (Levetiracetam 750 Mg Tablet) 1,500 mg PO BID [facility] Last Admin: 02/03/20 09:40 Dose: 1,500 mg Documented by: Lorazepam (Lorazepam 2 Mg/Ml Syringe) 1 mg IV X1 PRN PRN Reason: seizure activity Magnesium Hydroxide (Magnesium Hydroxide 30 Ml Udc) 30 ml PO DAILY PRN PRN PRN Reason: Constipation Melatonin (Melatonin 3 Mg Tablet) 3 mg PO QHS PRN PRN PRN Reason: INSOMNIA Meloxicam (Meloxicam 15 Mg Tablet) 15 mg PO DAILY [facility] Last Admin: 02/03/20 09:40 Dose: 15 mg Documented by: Nitroglycerin (Nitroglycerin (Inpatient Use) 0.4 Mg Tab.Subl) 0.4 mg SUBLINGUAL Q5M PRN PRN Reason: CARDIAC/CHEST PAIN Ondansetron HCl (Ondansetron 4 Mg/2 Ml Vial) 4 mg IV Q8H PRN PRN PRN Reason: NAUSEA/VOMITING Pantoprazole Sodium (Pantoprazole Sodium 20 Mg Tablet) 20 mg PO DAILY [facility] Last Admin: 02/03/20 09:40 Dose: 20 mg Documented by: Potassium Chloride (Potassium Chloride 20 Meq Tablet) 20 meq PO BIDCM [facility] Last Admin: 02/03/20 17:21 Dose: 20 meq Documented by: Psyllium Hydrophilic Mucilloid (Psyllium 1 Packet) 1 packet PO DAILY PRN PRN PRN Reason: Constipation Senna/Docusate Sodium (Senna/Docusate Sodium 1 Tablet) 2 tablet PO BID PRN PRN PRN Reason: Constipation Sodium Chloride (0.9% Saline Lock 10 Ml Syringe) 10 - 40 ml IV UD PRN PRN Reason: SALINE FLUSH Throat Lozenges (Benzocaine/Menthol 1 Lozenge) 1 lozenge MUCOUS MEM Q2H PRN PRN PRN Reason: SORE THROAT Addendum: Dr. Azul I personally examined the patient and reviewed the chart. I agree with the above. 39-year-old female who was transferred from residential due to medical issues. She states that she has seizures multiple times a day. EEG was obtained which was unremarkable and an MRI was also normal. 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 twice daily and if she continued to have seizures to increase these to 750 mg twice daily and transfer her to a facility that can do continuous video EEG monitoring. She is unable to go home and would like to go to a care home facility if possible. We will attempt to arrange this. As for the UTI, will continue with antibiotic management, urine culture is positive for E. coli greater than 100,000 CFU. 02/02/2020: Doing okay at does not appear to have had another seizure. Continue with Keppra and Depakote. She does have a pansensitive E. coli on her urine culture therefore can continue with Rocephin for total of 3 days, which she has completed. Placement is difficult as she is homeless and is needing significant support and assistance and additional therapy is being recommended by PT/OT. 02/03/2020: States that she has not had a seizure since being here since starting the Depakote. On admission her Depakote level was elevated so we will recheck in the morning. We will continue to try to get her into a care home facility for rehab as she is homeless. PT/OT continues to evaluate her and recommend additional therapy. OBSV E&M: 42090 Subsequent observation care L2
[2020-02-03 14:39] VITALS: BP 126/81; PULSE 94; RESP 16; TEMP 37.1; O2SAT 97
[2020-02-03 21:29] VITALS: BP 95/70; PULSE 88; RESP 16; TEMP 36.7; O2SAT 94
[2020-02-03] MEDS: Cefadroxil 500 MG CAPSULE 1000 MG PO (22:08)
[2020-02-03] MEDS: MELATONIN 3 MG TABLET PO (22:08)
[2020-02-03] MEDS: Amitriptyline 100 MG Tablet 300 MG PO (22:08)
[2020-02-04 03:45] VITALS: BP 108/77; PULSE 81; RESP 18; TEMP 36.9; O2SAT 98
[2020-02-04 05:48] LABS: Valproic Acid (Depakene) Level 72 ug/mL (50-100)
--- NOTE | 2020-02-04 08:56 | CASEMGMT ---
SW re-faxed information to [facility] as SW is not sure the full fax went through on Tuesday. Gwendolyn RAMIREZ [employer]
--- NOTE | 2020-02-04 10:19 | CASEMGMT ---
Addendum entered by Gwendolyn Tejeda 02/04/20 12:28: [facility] denied patient as well. Gwendolyn IYER Original Note: spoke with Charley at [place] and [facility] declined patient. SW called [facility] and they are not taking any patient's right now as they have COVID cases in their building. JORDY is still waiting on [facility]'s response. Gwendolyn RAMIREZ MSW
[2020-02-04 10:20] VITALS: BP 113/68; PULSE 98; RESP 14; TEMP 36.6; O2SAT 96
[2020-02-04] MEDS: levETIRAcetam 750 MG Tablet 1500 MG PO ×2 (10:23→22:06)
[2020-02-04] MEDS: Pantoprazole Sodium 20 MG Tablet PO (10:23)
[2020-02-04] MEDS: Meloxicam 15 MG Tablet PO (10:23)
[2020-02-04] MEDS: Divalproex Sodium 250 MG Tablet 500 MG PO ×2 (10:24→17:21)
[2020-02-04] MEDS: Cefadroxil 500 MG CAPSULE 1000 MG PO ×2 (10:25→22:06)
--- NOTE | 2020-02-04 12:29 | CASEMGMT ---
SW met with patient and told her that the nursing homes are declining her. SW explained that they see she has a history of drug abuse and she is homeless. SW also told her they are hesitant as she is 39 and that is not a usual age for a longterm patient. JORDY told her SW called [facility] and they still do not have availability. JORDY told her SW called [facility] and they want to talk with her. SW gave her the phone number to call. SW checked back with her and she said [facility] can take her, but probably not until tomorrow. She said they told her that if something changes and they have something sooner they will call her. She asked SW for the phone number for [facility]. She normally gets her medications filled at [facility]. JORDY gave her these phone numbers. JORDY updated RN and VICE PRESIDENT [employer] Priyanka of plan. Plan: [facility] Gwendolyn IYER
--- NOTE | 2020-02-04 12:40 | PN_ITS ---
<Priyanka Johnson COOK SHIP - Last Filed: 02/04/20 12:44> Patient Problems: Active and Suspected Problems Seizure (Acute) UTI (urinary tract infection) (Acute) Acute encephalopathy (Acute) Subjective: Patient seen and examined. Denies current complaints. Multiple nursing facilities have declined taking patient. [facility] can take patient but does not have a bed until tomorrow. - Physical Exam Vitals/I&O's: Vital Signs Temp Pulse Resp BP Pulse Ox 98 F 98 14 113/68 96 02/04/20 10:20 02/04/20 10:20 02/04/20 10:20 02/04/20 10:20 02/04/20 10:20 Oxygen Delivery Method Room Air Weight: 170 lb 13.732 oz Body Mass Index (BMI) 29.3 Finger Stick Blood Glucose 62 Intake and Output for Last 24 Hours 02/02/20 02/03/20 02/04/20 23:59 23:59 23:59 Intake Total 1170 / 1530 610 / 610 Output Total 2 / 2 Balance 1170 / 1530 608 / 608 General: Alert, Oriented x3, Cooperative HEENT: Atraumatic, PERRLA, EOMI, Normocephalic Neck: Supple, No JVD, Negative Carotid Bruits Lungs: Clear to auscultation, Normal air movement Cardiovascular: Regular rate, No murmurs Abdomen: Bowel Sounds Present, Soft, Non Tender Extremities: No clubbing, No cyanosis, No edema, Capillary Refill Less than 3 Seconds Skin: No rashes, No breakdown Musculoskeletal: No Tenderness to Palpation of Joints or Extremities Neurological: Cranial nerves II-XII grossly intact, Neuro grossly intact Psych/Mental Status: Flat Affect Microbiology Past 72 Hours 01/31/20 01:30 Urine, Clean Catch Urine Culture - Final Presumptive E. coli Laboratory Results 02/04/20 04:55: Valproic Acid 72 Current Medications Acetaminophen (Acetaminophen 500 Mg Tablet) 1,000 mg PO Q8H PRN PRN PRN Reason: Pain Score 1-10/Temp > 100.7 F Last Admin: 02/03/20 22:07 Dose: 1,000 mg Documented by: Al Hydroxide/Mg Hydroxide (Mag Hydrox/Al Hydrox/Simeth 30 Ml Udc) 30 ml PO Q6H PRN PRN PRN Reason: Gastric Burning Albuterol Sulfate (Albuterol 2.5 Mg/3 Ml Vial.Neb.) 2.5 mg INHALATION Q2H PRN PRN PRN Reason: Dyspnea, wheezing Amitriptyline HCl (Amitriptyline 100 Mg Tablet) 300 mg PO QHS [facility] Last Admin: 02/03/20 22:08 Dose: 300 mg Documented by: Cefadroxil (Cefadroxil 500 Mg Capsule) 1,000 mg PO BID [facility] Last Admin: 02/04/20 10:25 Dose: 1,000 mg Documented by: Divalproex Sodium (Dival[facility] S[facility] 250 Mg [facility]) [facility] Last Admin: 02/04/20 10:24 Dose: 500 mg Documented by: Guaifenesin (Guaifenesin 10 Ml Udc (200mg/10ml)) 20 ml PO Q4H PRN PRN PRN Reason: COUGH Hydralazine HCl (Hydralazine 20 Mg/Ml Vial) 10 mg IV Q4H PRN PRN PRN Reason: SBP > 160 Sodium Chloride () 250 mls @ 15 mls/hr IV .[id number] PRN PRN Reason: Saline Flush Sodium Chloride () 250 mls @ 15 mls/hr IV .[id number] PRN PRN Reason: Additional IVPB Infusion Levetiracetam (Levetiracetam 750 Mg Tablet) 1,500 mg PO BID [facility] Last Admin: 02/04/20 10:23 Dose: 1,500 mg Documented by: Lorazepam (Lorazepam 2 Mg/Ml Syringe) 1 mg IV X1 PRN PRN Reason: seizure activity Magnesium Hydroxide (Magnesium Hydroxide 30 Ml Udc) 30 ml PO DAILY PRN PRN PRN Reason: Constipation Melatonin (Melatonin 3 Mg Tablet) 3 mg PO QHS PRN PRN PRN Reason: INSOMNIA Last Admin: 02/03/20 22:08 Dose: 3 mg Documented by: Meloxicam (Meloxicam 15 Mg Tablet) 15 mg PO DAILY [facility] Last Admin: 02/04/20 10:23 Dose: 15 mg Documented by: Nitroglycerin (Nitroglycerin (Inpatient Use) 0.4 Mg Tab.Subl) 0.4 mg SUBLINGUAL Q5M PRN PRN Reason: CARDIAC/CHEST PAIN Ondansetron HCl (Ondansetron 4 Mg/2 Ml Vial) 4 mg IV Q8H PRN PRN PRN Reason: NAUSEA/VOMITING Pantoprazole Sodium (Pantoprazole Sodium 20 Mg Tablet) 20 mg PO DAILY [facility] Last Admin: 02/04/20 10:23 Dose: 20 mg Documented by: Potassium Chloride (Potassium Chloride 20 Meq Tablet) 20 meq PO BIDCM [facility] Last Admin: 02/04/20 10:24 Dose: 20 meq Documented by: Psyllium Hydrophilic Mucilloid (Psyllium 1 Packet) 1 packet PO DAILY PRN PRN PRN Reason: Constipation Senna/Docusate Sodium (Senna/Docusate Sodium 1 Tablet) 2 tablet PO BID PRN PRN PRN Reason: Constipation Sodium Chloride (0.9% Saline Lock 10 Ml Syringe) 10 - 40 ml IV UD PRN PRN Reason: SALINE FLUSH Throat Lozenges (Benzocaine/Menthol 1 Lozenge) 1 lozenge MUCOUS MEM Q2H PRN PRN PRN Reason: SORE THROAT Medical Necessity - Tobacco Use Smoking Status: Never smoker Tobacco Use: Non-smoker Assessment/Plan All Active Problems Seizure (Acute) UTI (urinary tract infection) (Acute) Methamphetamine intoxication (Acute) Acute encephalopathy (Acute) Altered mental status (Acute) 1. Possible breakthrough seizure-normal MRI of brain. EEG without seizure activity. Neurology recommends continuing home Keppra regimen. Add Depakote 500 mg twice daily. Patient has not had seizure activity in hospital. If she has recurrent seizure activity, neurology recommends continuous video EEG monitoring in an epilepsy program. Seizure precautions. Patient requesting SNF however she has been denied. She is currently homeless. Recently discharged from senior care due to medical issues. Patient has been accepted by [facility] [place], bed will be available 02/05/2020. 2. Acute E. coli UTI-discontinue IV Rocephin. Transition to Duricef to complete course. 3. Acute encephalopathy-secondary to #1/#2. Resolved. 4. History of polysubstance abuse-tox screen negative. Denies recent use however has been in senior care recently due to drug use. 5. Depression-continue amitriptyline. 6. GERD-continue PPI. DVT prophylaxis-low risk, encourage ambulation Discharge planning: [facility] [place] 02/05/2020. This patient was seen by ADALID Chance under the supervision of Dr. Paintsil. <Paintsil,[place] - Last Filed: 02/04/20 18:34> - Physical Exam Vitals/I&O's: Vital Signs Temp Pulse Resp BP Pulse Ox 98 F 98 14 113/68 96 02/04/20 10:20 02/04/20 10:20 02/04/20 10:20 02/04/20 10:20 02/04/20 10:20 Oxygen Delivery Method Room Air Weight: 77.5 kg Body Mass Index (BMI) 29.3 Finger Stick Blood Glucose 62 Intake and Output for Last 24 Hours 02/02/20 02/03/20 02/04/20 23:59 23:59 23:59 Intake Total 1170 / 1530 610 / 610 720 / 720 Output Total 2 / Balance 1170 / 1530 608 / 608 720 / 720 Microbiology Past 72 Hours 01/31/20 01:30 Urine, Clean Catch Urine Culture - Final Presumptive E. coli Laboratory Results 02/04/20 04:55: Valproic Acid 72 Current Medications Acetaminophen (Acetaminophen 500 Mg Tablet) 1,000 mg PO Q8H PRN PRN PRN Reason: Pain Score 1-10/Temp > 100.7 F Last Admin: 02/03/20 22:07 Dose: 1,000 mg Documented by: Al Hydroxide/Mg Hydroxide (Mag Hydrox/Al Hydrox/Simeth 30 Ml Udc) 30 ml PO Q6H PRN PRN PRN Reason: Gastric Burning Albuterol Sulfate (Albuterol 2.5 Mg/3 Ml Vial.Neb.) 2.5 mg INHALATION Q2H PRN PRN PRN Reason: Dyspnea, wheezing Amitriptyline HCl (Amitriptyline 100 Mg Tablet) 300 mg PO QHS [facility] Last Admin: 02/03/20 22:08 Dose: 300 mg Documented by: Cefadroxil (Cefadroxil 500 Mg Capsule) 1,000 mg PO BID [facility] Last Admin: 02/04/20 10:25 Dose: 1,000 mg Documented by: Divalproex Sodium (Divalproex Sodium 250 Mg Tablet) [facility] Last Admin: 02/04/20 17:21 Dose: 500 mg Documented by: Guaifenesin (Guaifenesin 10 Ml Udc (200mg/10ml)) 20 ml PO Q4H PRN PRN PRN Reason: COUGH Hydralazine HCl (Hydralazine 20 Mg/Ml Vial) 10 mg IV Q4H PRN PRN PRN Reason: SBP > 160 Sodium Chloride () 250 mls @ 15 mls/hr IV .[id number] PRN PRN Reason: Saline Flush Sodium Chloride () 250 mls @ 15 mls/hr IV .[id number] PRN PRN Reason: Additional IVPB Infusion Levetiracetam (Levetiracetam 750 Mg Tablet) 1,500 mg PO BID [facility] Last Admin: 02/04/20 10:23 Dose: 1,500 mg Documented by: Lorazepam (Lorazepam 2 Mg/Ml Syringe) 1 mg IV X1 PRN PRN Reason: seizure activity Magnesium Hydroxide (Magnesium Hydroxide 30 Ml Udc) 30 ml PO DAILY PRN PRN PRN Reason: Constipation Melatonin (Melatonin 3 Mg Tablet) 3 mg PO QHS PRN PRN PRN Reason: INSOMNIA Last Admin: 02/03/20 22:08 Dose: 3 mg Documented by: Meloxicam (Meloxicam 15 Mg Tablet) 15 mg PO DAILY [facility] Last Admin: 02/04/20 10:23 Dose: 15 mg Documented by: Nitroglycerin (Nitroglycerin (Inpatient Use) 0.4 Mg Tab.Subl) 0.4 mg SUBLINGUAL Q5M PRN PRN Reason: CARDIAC/CHEST PAIN Ondansetron HCl (Ondansetron 4 Mg/2 Ml Vial) 4 mg IV Q8H PRN PRN PRN Reason: NAUSEA/VOMITING Pantoprazole Sodium (Pantoprazole Sodium 20 Mg Tablet) 20 mg PO DAILY [facility] Last Admin: 02/04/20 10:23 Dose: 20 mg Documented by: Potassium Chloride (Potassium Chloride 20 Meq Tablet) 20 meq PO BIDCM [facility] Last Admin: 02/04/20 17:20 Dose: 20 meq Documented by: Psyllium Hydrophilic Mucilloid (Psyllium 1 Packet) 1 packet PO DAILY PRN PRN PRN Reason: Constipation Senna/Docusate Sodium (Senna/Docusate Sodium 1 Tablet) 2 tablet PO BID PRN PRN PRN Reason: Constipation Sodium Chloride (0.9% Saline Lock 10 Ml Syringe) 10 - 40 ml IV UD PRN PRN Reason: SALINE FLUSH Throat Lozenges (Benzocaine/Menthol 1 Lozenge) 1 lozenge MUCOUS MEM Q2H PRN PRN PRN Reason: SORE THROAT Assessment/Plan This patient was seen in conjunction with Priyanka Johnson [employer]. I have independently interviewed and examined the patient and reviewed pertinent historical, laboratory, and other data. Please refer to her note for patient's presentation, findings, and recommendations. Patient was seen and examined. No acute events overnight. She ambulated with therapy today. Discharge planning in the works Vitals were reviewed -stable Physical Exam: Gen: Comfortable, not pale, not jaundiced, alert oriented x3 CVS:HS I +II, regular, no murmurs RESP: CTA GI: BS present and normal, nontender, no palpable organs EXT:No edema RESEARCH LABORATORY MANAGER: Grossly intact except for weakness in right leg, 4/5 Labs reviewed: ASSESSMENT: 1. Left lower leg weakness 2. Acute E. coli UTI 3. Acute metabolic encephalopathy 4. Polysubstance use disorder 5. Depression 6. GERD Meds reviewed Plan: Continue on Cefadroxil, Keppra, Depakote Inpatient E&M: 87956 Subs Hosp L2
[2020-02-04 18:49] VITALS: BP 107/52; PULSE 79; RESP 14; TEMP 36.9; O2SAT 95
[2020-02-04 22:00] VITALS: BP 100/68; PULSE 87; RESP 18; TEMP 36.3; O2SAT 94
[2020-02-04] MEDS: Acetaminophen 500 MG Tablet 1000 MG PO (22:04)
[2020-02-04] MEDS: MELATONIN 3 MG TABLET PO (22:05)
[2020-02-04] MEDS: Amitriptyline 100 MG Tablet 300 MG PO (22:05)
[2020-02-05 04:00] VITALS: BP 100/68; PULSE 80; RESP 16; TEMP 36.8; O2SAT 95
[2020-02-05 10:02] VITALS: BP 104/70; PULSE 92; RESP 14; TEMP 36.6; O2SAT 96
[2020-02-05] MEDS: Cefadroxil 500 MG CAPSULE 1000 MG PO (10:06)
[2020-02-05] MEDS: Pantoprazole Sodium 20 MG Tablet PO (10:06)
[2020-02-05] MEDS: Meloxicam 15 MG Tablet PO (10:06)
[2020-02-05] MEDS: Divalproex Sodium 250 MG Tablet 500 MG PO (10:07)
[2020-02-05] MEDS: levETIRAcetam 750 MG Tablet 1500 MG PO (10:07)
--- NOTE | 2020-02-05 10:48 | CASEMGMT ---
SW spoke with patient and she said she is to call [facility] around lunch and they will let her know when she can come today. Gwendolyn RAMIREZ MSW
--- NOTE | 2020-02-05 10:54 | PCM.DC ---
- Discharge Diagnoses Current Active Problems: Current Active and Chronic Problems Seizure (Acute) Anxiety and depression (Chronic) UTI (urinary tract infection) (Acute) Acute encephalopathy (Acute) Methamphetamine abuse (Chronic) High anion gap metabolic acidosis (Chronic) Drug overdose (Chronic) Encephalopathy (Chronic) GERD (gastroesophageal reflux disease) (Chronic) BMI 33.0-33.9,adult (Chronic) You will use the following diet at home:: No restrictions Discharge Activity: Return to Normal Activity Call your doctor if you observe: Shortness of breath, Dizziness, Fainting spells, Chest pain Allergies/Adverse Reactions: Allergies naproxen [From Naprosyn] Allergy (Verified 01/30/20 22:55) Hives Penicillins Adverse Reaction (Verified 01/30/20 22:55) Vomiting Medications to take at Discharge Amitriptyline HCl 300 mg PO QHS 04/02/18 Levetiracetam [Keppra] 1,500 mg PO BID 04/02/18 Meloxicam [Mobic] 15 mg PO DAILY 12/11/18 Omeprazole 20 mg PO DAILY 12/11/18 Ondansetron [Zofran Odt] 4 mg PO Q8H PRN PRN #10 tab 01/21/19 Cefadroxil [Duricef] 1,000 mg PO BID #6 cap 02/05/20 Divalproex Sodium [Depakote] 500 mg PO BIDCM #60 tab 02/05/20 Melatonin 3 mg PO QHS PRN PRN #30 tab 02/05/20 The following prescriptions were given: Divalproex Sodium [Depakote] 500 mg PO BIDCM #60 tab Transmission Status: Pending to [facility] Cefadroxil [Duricef] 1,000 mg PO BID #6 cap Transmission Status: Pending to [facility] Melatonin 3 mg PO QHS PRN PRN #30 tab PRN Reason: Insomnia Transmission Status: Pending to [facility] Primary Care Physician: Giancarlo Espinosa MD [Primary Care Provider] - Please follow up with your Primary Care Physician in: 1 Week Test Results: Test results from this visit will be discussed in further detail at your follow-up appointment, if applicable. Please Follow Up With: Adan Wheeler MD - Neurology When: 4-6 Weeks Proposed Discharge Date: 02/05/20
--- NOTE | 2020-02-05 10:56 | DS.PCM_ITS ---
<Priyanka Johnson PAPER CONTROL CLERK - Last Filed: 02/05/20 11:00> Discharge Date and Diagnosis - Problem List Patient Problems: Active and Suspected Problems Seizure (Acute) UTI (urinary tract infection) (Acute) Acute encephalopathy (Acute) Date of Admission: 01/31/20 Date of Discharge: 02/05/20 - Primary Discharge Diagnosis Acute Problems: Active Problems 1. Possible breakthrough seizure 2. Acute E. coli UTI 3. Acute encephalopathy-secondary to #1/#2. Resolved. 4. History of polysubstance abuse 5. Depression 6. GERD - Secondary Discharge Diagnosis Chronic Problems: Chronic Problems Anxiety and depression (Chronic) Methamphetamine abuse (Chronic) High anion gap metabolic acidosis (Chronic) Drug overdose (Chronic) Encephalopathy (Chronic) Transverse myelitis (Chronic) GERD (gastroesophageal reflux disease) (Chronic) BMI 33.0-33.9,adult (Chronic) Hospital Course and Treatment Imaging Results: Diagnostic Data Brain CT 01/31/20 00:01 IMPRESSION: Normal unenhanced CT scan of the brain. Electronically Signed: Gabrielle Stanton MD at 1:28 EST , Service support , Chest X-Ray 01/31/20 00:01 IMPRESSION: Minimal left atelectasis otherwise no acute process identified. Electronically Signed: Gabrielle Stanton MD at 0:30 EST , Service support , Facial/Sinus 01/31/20 00:02 IMPRESSION: Mild soft tissue swelling as described otherwise normal unenhanced CT of the facial bones. Specifically, no acute fracture seen. Electronically Signed: Gabrielle Stanton MD at 1:44 EST , Service support , Brain MRI 01/31/20 11:41 IMPRESSION: 1. Negative unenhanced and enhanced MRI of the brain. 2. No abnormal meningeal or dural or parenchymal enhancement. No enhancing lesions are present. No demonstrated mesial temporal atrophy or significant sclerosis. Electronically Signed: Russell Bolton MD at 20:04 EST , Service support , Operations: None Procedures: Electroencephalogram Summary of Care Provided: The patient is a 40 year old F admitted 01/31/2020 due to breakthrough seizure. 1. Possible breakthrough seizure-normal MRI of brain. EEG without seizure activity. Neurology recommends continuing home Keppra regimen. Add Depakote 500 mg twice daily. Patient has not had seizure activity in hospital. If she has recurrent seizure activity, neurology recommends continuous video EEG monitoring in an epilepsy program. Patient requesting SNF however she has been denied. She is currently homeless. [facility] due to [facility] issues. [facility] by [facility]. 2. Acute E. coli UTI-discontinue IV Rocephin. Transition to Duricef to complete course. 3. Acute encephalopathy-secondary to #1/#2. Resolved. 4. History of polysubstance abuse-tox screen negative. Denies recent use however has been in [facility] recently due to drug use. 5. Depression-continue amitriptyline. 6. GERD-continue PPI. General: Alert, Oriented x3, Cooperative HEENT: Atraumatic, PERRLA, EOMI, Normocephalic Neck: Supple, No JVD, Negative Carotid Bruits Lungs: Clear to auscultation, Normal air movement Cardiovascular: Regular rate, No murmurs Abdomen: Bowel Sounds Present, Soft, Non Tender Extremities: No clubbing, No cyanosis, No edema, Capillary Refill Less than 3 Seconds Skin: No rashes, No breakdown Musculoskeletal: No Tenderness to Palpation of Joints or Extremities Neurological: Cranial nerves II-XII grossly intact, Neuro grossly intact Psych/Mental Status: Flat Affect Patient seen and examined prior to discharge. Physical assessment as noted above. Patient is stable for discharge with follow up recommendations as noted above. This patient was seen by ADALID Chance under the supervision of Dr. Boles. Patient Problems: Active and Suspected Problems Seizure (Acute) UTI (urinary tract infection) (Acute) Acute encephalopathy (Acute) - Physical Exam Vitals/I&O's: Vital Signs Temp Pulse Resp BP Pulse Ox 98 F 92 14 104/70 96 02/05/20 10:02 02/05/20 10:02 02/05/20 10:02 02/05/20 10:02 02/05/20 10:02 Oxygen Delivery Method Room Air Weight: 170 lb 13.732 oz Body Mass Index (BMI) 29.3 Finger Stick Blood Glucose 62 Intake and Output for Last 24 Hours 02/03/20 02/04/20 02/05/20 23:59 23:59 23:59 Intake Total 610 / 610 1420 / 1420 Output Total 2 / 2 Balance 608 / 608 1420 / 1420 Microbiology Past 72 Hours 01/31/20 01:30 Urine, Clean Catch Urine Culture - Final Presumptive E. coli Current Medications Acetaminophen (Acetaminophen 500 Mg Tablet) 1,000 mg PO Q8H PRN PRN PRN Reason: Pain Score 1-10/Temp > 100.7 F Last Admin: 02/04/20 22:04 Dose: 1,000 mg Documented by: Al Hydroxide/Mg Hydroxide (Mag Hydrox/Al Hydrox/Simeth 30 Ml Udc) 30 ml PO Q6H PRN PRN PRN Reason: Gastric Burning Albuterol Sulfate (Albuterol 2.5 Mg/3 Ml Vial.Neb.) 2.5 mg INHALATION Q2H PRN PRN PRN Reason: Dyspnea, wheezing Amitriptyline HCl (Amitriptyline 100 Mg Tablet) 300 mg PO QHS [facility] Last Admin: 02/04/20 22:05 Dose: 300 mg Documented by: Cefadroxil (Cefadroxil 500 Mg Capsule) 1,000 mg PO BID [facility] Last Admin: 02/05/20 10:06 Dose: 1,000 mg Documented by: Divalproex Sodium ([facility] S[facility] 250 Mg [facility]t) [facility] Last Admin: 02/05/20 10:07 Dose: 500 mg Documented by: Guaifenesin (Guaifenesin 10 Ml Udc (200mg/10ml)) 20 ml PO Q4H PRN PRN PRN Reason: COUGH Hydralazine HCl (Hydralazine 20 Mg/Ml Vial) 10 mg IV Q4H PRN PRN PRN Reason: SBP > 160 Sodium Chloride () 250 mls @ 15 mls/hr IV .[id number] PRN PRN Reason: Saline Flush Sodium Chloride () 250 mls @ 15 mls/hr IV .[id number] PRN PRN Reason: Additional IVPB Infusion Levetiracetam (Levetiracetam 750 Mg Tablet) 1,500 mg PO BID [facility] Last Admin: 02/05/20 10:07 Dose: 1,500 mg Documented by: Lorazepam (Lorazepam 2 Mg/Ml Syringe) 1 mg IV X1 PRN PRN Reason: seizure activity Magnesium Hydroxide (Magnesium Hydroxide 30 Ml Udc) 30 ml PO DAILY PRN PRN PRN Reason: Constipation Melatonin (Melatonin 3 Mg Tablet) 3 mg PO QHS PRN PRN PRN Reason: INSOMNIA Last Admin: 02/04/20 22:05 Dose: 3 mg Documented by: Meloxicam (Meloxicam 15 Mg Tablet) 15 mg PO DAILY [facility] Last Admin: 02/05/20 10:06 Dose: 15 mg Documented by: Nitroglycerin (Nitroglycerin (Inpatient Use) 0.4 Mg Tab.Subl) 0.4 mg SUBLINGUAL Q5M PRN PRN Reason: CARDIAC/CHEST PAIN Ondansetron HCl (Ondansetron 4 Mg/2 Ml Vial) 4 mg IV Q8H PRN PRN PRN Reason: NAUSEA/VOMITING Pantoprazole Sodium (Pantoprazole Sodium 20 Mg Tablet) 20 mg PO DAILY [facility] Last Admin: 02/05/20 10:06 Dose: 20 mg Documented by: Potassium Chloride (Potassium Chloride 20 Meq Tablet) [facility] Last Admin: 02/05/20 10:06 Dose: 20 meq Documented by: Psyllium Hydrophilic Mucilloid (Psyllium 1 Packet) 1 packet PO DAILY PRN PRN PRN Reason: Constipation Senna/Docusate Sodium (Senna/Docusate Sodium 1 Tablet) 2 tablet PO BID PRN PRN PRN Reason: Constipation Sodium Chloride (0.9% Saline Lock 10 Ml Syringe) 10 - 40 ml IV UD PRN PRN Reason: SALINE FLUSH Throat Lozenges (Benzocaine/Menthol 1 Lozenge) 1 lozenge MUCOUS MEM Q2H PRN PRN PRN Reason: SORE THROAT Discharge Diet: No Restrictions Discharge Activity: Return to Normal Activity Call your doctor if you observe: Shortness of breath, Dizziness, Fainting spells, Chest pain Home Medications: Medications to take at Discharge Amitriptyline HCl 300 mg PO QHS 04/02/18 Levetiracetam [Keppra] 1,500 mg PO BID 04/02/18 Meloxicam [Mobic] 15 mg PO DAILY 12/11/18 Omeprazole 20 mg PO DAILY 12/11/18 Ondansetron [Zofran Odt] 4 mg PO Q8H PRN PRN #10 tab 01/21/19 Cefadroxil [Duricef] 1,000 mg PO BID #6 cap 02/05/20 Divalproex Sodium [Depakote] 500 mg PO BIDCM #60 tab 02/05/20 Melatonin 3 mg PO QHS PRN PRN #30 tab 02/05/20 Following Prescriptions Were Given to Patient: Divalproex Sodium [Depakote] 500 mg PO BIDCM #60 tab Transmission Status: Received by [facility] #30 Cefadroxil [Duricef] 1,000 mg PO BID #6 cap Transmission Status: Received by [facility]30 Melatonin 3 mg PO QHS PRN PRN #30 tab PRN Reason: Insomnia Transmission Status: Received by [facility]30 Primary Care Physician: Giancarlo Espinosa MD [Primary Care Provider] - Please follow up with your Primary Care Physician in: 1 Week Please Follow Up With: Adan Wheeler MD - Neurology When: 4-6 Weeks Disposition: Home - [facility] Minutes spent on discharge:: 35 Patient Condition:: Stable Medical Necessity - Tobacco Use Smoking Status: Never smoker Tobacco Use: Non-smoker Meaningful Use Info Meaningful Use Diagnoses (Choose all that apply): None applicable <[place] - Last Filed: 02/05/20 16:16> Discharge Date and Diagnosis - Primary Discharge Diagnosis Acute Problems: Active Problems Seizure (Acute) UTI (urinary tract infection) (Acute) Acute encephalopathy (Acute) - Secondary Discharge Diagnosis Chronic Problems: Chronic Problems Anxiety and depression (Chronic) Methamphetamine abuse (Chronic) High anion gap metabolic acidosis (Chronic) Drug overdose (Chronic) Encephalopathy (Chronic) Transverse myelitis (Chronic) GERD (gastroesophageal reflux disease) (Chronic) BMI 33.0-33.9,adult (Chronic) Hospital Course and Treatment Summary of Care Provided: This patient was seen in conjunction with Priyanka Johnson NP. I have independently interviewed and examined the patient and reviewed pertinent historical, laboratory, and other data. Please refer to her note for patient's presentation, findings, and recommendations. 40-year-old female with multiple comorbidities including polysubstance use disorder, seizure disorder who presented with a possible breakthrough seizure on the day of arrival. Patient was found on the ground by the police, she reported that she had a seizure. She had a swollen lip and some facial pain secondary to her fall. COVID-19 test was negative. She was also found to have acute UTI for which she was started on IV ceftriaxone. Urine tox was also negative Patient had EEG done as well as MRI which was unremarkable. A consult was also made to [facility] telemetry neurology. Recommendations by neurology were for patient to continue on her home Keppra regimen as well as add Depakote 500 mg twice a day. Patient was monitored throughout her hospital stay and did not have any seizure. She however complained of weakness in her left lower extremity. She was however seen ambulating in her room with no difficulty. Patient had requested discharge to a senior care facility but was denied. She was accepted at the [facility] at discharge. She was transitioned to [facility] at discharge to complete course. On the day of discharge, patient was seen and examined. Denied any new complaints. Physical Exam: Gen: Comfortable, not pale, not jaundiced, alert oriented x3 CVS:HS I +II, regular, no murmurs RESP: CTA GI: BS present and normal, nontender, no palpable organs EXT:No edema FOOD AND BEVERAGE LEAD: Grossly intact except for weakness in right leg, 4/5 - Physical Exam Vitals/I&O's: Vital Signs Temp Pulse Resp BP Pulse Ox 98 F 92 14 104/70 96 02/05/20 10:02 02/05/20 10:02 02/05/20 10:02 02/05/20 10:02 02/05/20 10:02 Oxygen Delivery Method Room Air Weight: 77.5 kg Body Mass Index (BMI) 29.3 Finger Stick Blood Glucose 62 Intake and Output for Last 24 Hours 02/03/20 02/04/20 02/05/20 23:59 23:59 23:59 Intake Total 610 / 610 1420 / 1420 Output Total 2 / 2 Balance 608 / 608 1420 / 1420 OBSV E&M: [id number] Observation care discharge
--- NOTE | 2020-02-05 11:03 | CASEMGMT ---
SW asked patient if [facility] ([facility]) was sending a cab to get her. She said she is planning on walking. SW asked her if she has the money to pay for a cab. She said she does not. She said she is not worried about it. She has to stop by [facility] to get her medications and she has a few other things she needs to do before she goes to [facility]. She told SW she is fine and she is not worried about it. JORDY notified RN and A[employer]IC[employer] REAL ESTATE AGENT. Gwendolyn RAMIREZ MSW
--- NOTE | 2020-02-05 11:49 | PHA.DC.MR ---
Pharmacy Service has performed discharge medication reconciliation for this patient. Home Medications Amitriptyline HCl 300 mg PO QHS 04/02/18 Levetiracetam [Keppra] 1,500 mg PO BID 04/02/18 Meloxicam [Mobic] 15 mg PO DAILY 12/11/18 Omeprazole 20 mg PO DAILY 12/11/18 Ondansetron [Zofran Odt] 4 mg PO Q8H PRN PRN #10 tab 01/21/19 Cefadroxil [Duricef] 1,000 mg PO BID #6 cap 02/05/20 Divalproex Sodium [Depakote] 500 mg PO BIDCM #60 tab 02/05/20 Melatonin 3 mg PO QHS PRN PRN #30 tab 02/05/20 The patient's discharge medication list was reviewed for discrepancies and discrepancies were resolved.
== END 2020-02-05 10:55 | disposition home or self-care (01) ==
LOC: ED 23:44 → PCU 01-31 02:36
PROVIDERS: Nurse Practitioner Family; Admitting Provider Family Medicine; Emergency Provider Student in an Organized Health Care Education/Training Program; PCP Family Medicine; Referring Provider Family Medicine; Visit Provider Internal Medicine
DX: G40.909 Epilepsy, unspecified, not intractable, without status epilepticus (principal); G93.41 Metabolic encephalopathy; N39.0 Urinary tract infection, site not specified; B96.20 Unspecified Escherichia coli [E. coli] as the cause of diseases classified elsewhere; F15.129 Other stimulant abuse with intoxication, unspecified; F19.11 Other psychoactive substance abuse, in remission; F32.9 Major depressive disorder, single episode, unspecified; F41.9 Anxiety disorder, unspecified; Z59.0 Homelessness; Z79.1 Long term (current) use of non-steroidal anti-inflammatories (NSAID); Z79.899 Other long term (current) drug therapy; Z91.19 Patient's noncompliance with other medical treatment and regimen
CPT/HCPCS: 36415; 70450; 70486; 70553; 71045; 80048; 80053; 80164; 80307; 80320; 81001; 84484; 84703; 85025; 85027; 87086; 87088; 87186; 87635; 93005; 95819; 96361; 96365; 96366; 96367; 97110; 97162; 97166; 97530; 99218; 99283; 99285; A9575; J7030; J7040; J7050; A4216; G0378; G0480; J0696; U0002

== ENCOUNTER 2020-05-02 13:09 | Emergency (ER) | payer MEDICAID, SELFPAY ==
[2020-01-31 04:08] VITALS: BMI 29.3
[2020-05-02 13:10] VITALS: BP 135/95; PULSE 99; RESP 16; TEMP 35.8; O2SAT 98; BMI 27.4
--- NOTE | 2020-05-02 13:22 | ED.VIS.GEN ---
History of Present Illness Chief Complaint: Headache Narrative: Patient presenting secondary to a painful lump on her scalp. Patient states that she has an underlying history of seizures, she potentially had a breakthrough seizure 5 days ago and maybe hit her head. Patient states that since then she has had a enlarging painful lump over the left parietal portion of her scalp that is draining some fluid. Patient states that it is causing her to have a headache. Patient denies any fevers. Patient has not taken anything for this. Review of systems otherwise negative. Past Medical History - Allergies and Home Meds Allergies/Adverse Reactions: Allergies naproxen [From Naprosyn] Allergy (Verified 05/02/20 13:10) Hives Penicillins Adverse Reaction (Verified 05/02/20 13:10) Vomiting Primary Care Physician: Giancarlo Espinosa MD [Primary Care Provider] - Prior records reviewed: Yes Past Medical History: - - Seizures, polysubstance abuse Surgical History: appendectomy, - - Bilateral tubal ligation. Lives: Spouse/ Significant Other Smoking Status: Never smoker Drugs: - - Reported past history of polysubstance abuse - Family History Maternal Family History: Reports: - - Patient denies any marked maternal or paternal family history including heart disease, diabetes, cancer. Paternal Family History: Reports: - - Patient denies any marked maternal or paternal family history including heart disease, diabetes, cancer. Review of Systems General: Denies: Chills, Fever, Sweats ENT: Reports: - - Enlarging bump on the scalp Cardiovascular: Denies: Chest pain, Palpitations Respiratory: Denies: Dyspnea, Cough, Dyspnea on exertion Gastrointestinal: Denies: Abdominal pain, Nausea, Vomiting, Diarrhea, Melena, Hematochezia Genitourinary: Denies: Dysuria, Hematuria, Frequency Musculoskeletal: Denies: Back pain, Extremity Pain Skin: Denies: Rash, Wounds Neurological: Reports: Headache Physical Exam Vital Signs/Narrative: Vital Signs Temp Pulse Resp BP Pulse Ox 05/02/20 13:10 96.5 F L 99 16 135/95 H 98 Inital Vital Signs reviewed: Yes General: Well nourished, Well developed, No Acute Distress Head: Normocephalic, - - Some matting of the hair in the scalp in the left parietal region, but when this is removed there is evidence of a wound with some draining purulence and mild surrounding induration. This measures about 4 cm. Tenderness to palpation is noted in the area. Eyes: EOMI Cardiovascular: Regular rate, Regular rhythm Respiratory: No distress Skin: Normal color Neurological: Alert, Oriented x3 Psychological: Normal affect Diagnostic/Tx/Re-eval - Medical Decision Making Patient presented with a scalp wound. This does appear to have some evidence of infection as it is draining purulence and had matting of the hair over top of it. I was able to remove this using wet gauze. Patient's wound is actively draining and does not require further incision and drainage. She does not have a fever tachycardia or outward constitutional signs or symptoms that would require work-up or CT imaging. Patient was recommended to do warm compresses over top of this, she will be placed on doxycycline. Patient does have a primary care physician, she was recommended she needs to follow-up there for a wound check in 2 to 3 days. She understands signs and symptoms which to return. She requested treatment for pain, she was given a dose of Toradol in the emergency department. ED Disposition - Plan for ED Patient: Disposition: Home or Assisted Living Diagnosis: Scalp abscess Instructions: ED Abscess Antibiotic Treatment Only Prescriptions: Doxycycline Hyclate 100 mg PO BID #20 tab Prescription Printed Referrals: Giancarlo Espinosa MD [Primary Care Provider] - 2 Days for wound check
[2020-05-02] MEDS: Doxycycline 100 MG CAPSULE PO (13:45)
[2020-05-02] MEDS: Ketorolac 15 MG/ML Vial IM (14:14)
[2020-05-02 14:39] VITALS: RESP 16
== END 2020-05-02 14:41 | disposition home or self-care (01) ==
LOC: ED 13:49
PROVIDERS: Emergency Provider Emergency Medicine; PCP Family Medicine
DX: L02.811 Cutaneous abscess of head [any part, except face] (principal); F19.11 Other psychoactive substance abuse, in remission
CPT/HCPCS: 96372; 99283

== ENCOUNTER 2020-06-12 17:08 | Emergency (ER) | payer MEDICAID, SELFPAY ==
[2020-06-12 17:09] VITALS: BP 126/52; PULSE 128; RESP 18; TEMP 36.2; O2SAT 99; BMI 31.8
--- NOTE | 2020-06-12 17:22 | CT_ITS ---
STUDY: CT ABDOMEN AND PELVIS WITHOUT CONTRAST REASON FOR EXAM: Female, 40 years old. Right flank pain RADIATION DOSAGE (If Supplied By Facility): CTDIvol = ( 10.91 ) mGy, DLP = ( 605.04 ) mGycm TECHNIQUE: Transaxial images were obtained from the dome of the diaphragm to the symphysis pubis without oral contrast, and without intravenous contrast. Sagittal and coronal images were reconstructed. Individualized dose optimization techniques were used for this CT. COMPARISON: None. FINDINGS: The visualized lung bases are unremarkable. The visualized portions of the heart are within normal limits. Normal liver. Normal gallbladder and extrahepatic biliary system. Normal spleen. Normal pancreas. Normal bilateral adrenal glands. 2 mm nonobstructive stone in the right kidney. Up to 2 mm stones in the left kidney. Normal visualized stomach. Normal small intestine. Normal colon. The appendix is not visualized. Normal abdominal aorta. Normal inferior vena cava. Normal retroperitoneum. Normal urinary bladder. Prominent uterus with IUD. Normal abdominal wall. Old left rib fractures. CT/Abdomen/Pelvis without Cont IMPRESSION: Bilateral nonobstructive renal calculi. No hydronephrosis. IUD is noted in a prominent uterus. Electronically Signed: Shemar Holley DO at 19:18 EDT Tel [phone], Service support ,
[2020-06-12] MEDS: Ondansetron 4 MG/2 ML Vial IV (17:41)
[2020-06-12] MEDS: 0.9% Normal Saline 1,000 ML 1000 ML IV (17:41)
[2020-06-12] MEDS: Ketorolac 15 MG/ML Vial IV (17:42)
[2020-06-12 17:47] LABS: Absolute Lymphocyte Count 2.44 X10^3/uL (0.83-4.51); Absolute Neutrophil Count 5.6 X10^3/uL (2.0-7.7); Basophil# 0.03 X10^3/uL; Basophil% 0.3 % (0-1); Eosinophil# 0.02 X10^3/uL; Eosinophils% 0.2 % (0-5); Hematocrit 42.7 % (37-47); Hemoglobin 14.5 g/dL (12.0-15.0); Lymphocyte # 2.44 X10^3/ul (4.0); Lymphocyte % 26.7 % (19-41); Mean Corpuscular Hgb 33.3 pg (27.0-32.0); Mean Corpuscular Volume 98.2 fL (81-99); Mean Platelet Vol. 9.3 fl (6.2-12.0); Monocyte# 1.02 X10^3/uL; Monocyte% 11.2 % (0-10); NRBC Flagged by Analyzer 0 % (0-5); Neutrophil # 5.58 X10^3/uL (2.7-7.7); Neutrophil % 61.2 % (47-70); Platelet Count 376 K/mm3 (150-450); RBC Distribution Width SD 46.6 fl (35.1-43.9); Red Blood Count 4.35 M/mm3 (4.2-5.4); White Blood Count 9.1 K/mm3 (4.4-11.0)
[2020-06-12 18:01] LABS: Anion Gap 8 (5-15); BUN 17 mg/dL (7-18); BUN/Creat Ratio 22.4 RATIO (10-20); Calcium,Total 9.3 mg/dL (8.5-10.1); Chloride 103 mmol/L (98-107); Creatinine, Serum 0.76 mg/dL (0.55-1.02); EST Glomerular Filtration Rate 90 mL/min (>60); Est Glom Filt Rate - Afr Amer 108 mL/min (>60); Estimated Creatinine Clearance 77.82 ml/min; Glucose 112 mg/dL (74-106); Potassium 3.7 mmol/L (3.5-5.1); Sodium Level 133 mmol/L (136-145)
[2020-06-12 18:13] LABS: Color, Urine Yellow (Yellow); Glucose, Dipstick Normal (Normal); Leukocyte Esterase-Dipstick 25 /ul (Negative); Nitrite-Dipstick Negative (Negative); Occult Blood-Urine 250 /ul (Negative); Protein-Dipstick 30 mg/dl (Negative); Specific Gravity, Urine 1.025 (1.002-1.030); Urine Clarity Cloudy (Clear); Urine Urobilinogen 1 mg/dl (Normal)
[2020-06-12 18:15] LABS: Internal QC Validated? YES +Cl - CLEAR BKGD; Pregnancy, Serum, hCG Quali. NEGATIVE Negative
[2020-06-12 18:16] LABS: Urine Bilirubin Dipstick 1 mg/dL (Negative)
[2020-06-12 18:17] LABS: Ketone-Dipstick 150 mg/dl (Negative)
[2020-06-12 18:30] LABS: Bacteria 2+ /hpf (None Seen); Mucous, Urine 1+ /hpf (<or=2+); Squamous Epithelial Cells - UA 10-25 SEEN /hpf (5-10); White Blood Cells 5-10 SEEN /hpf (0-5)
[2020-06-12 18:31] LABS: Red Blood Cells-Urine 0-5 SEEN /hpf (0-5)
--- NOTE | 2020-06-12 19:47 | ED.VISSUMM ---
- ER Visit Summary Date of Service: 06/12/20 Chief Complaint: Flank pain History of Present Illness: The patient is a 40 F with right-sided flank pain that started yesterday. Worse today. Pain is severe. Associated with nausea, vomiting, hematuria. History of kidney stones. Physical Examination: Afebrile and vital signs unremarkable except for heart rate of 128. Patient appears uncomfortable but not toxic or in distress. Alert and oriented. Heart tachycardic. Right flank tender to palpation with light touch. Right CVA tender to palpation. Skin appears normal. Otherwise exam unremarkable. Test Results: CBC unremarkable. Sodium 133, glucose 112. Urine shows contamination, 0-5 red cells[address] test negative. CT showed IUD with prominent uterus and bilateral renal stones, nonobstructing. Emergency Department Course and Treatment: Patient was treated with fluids, Zofran, Toradol. I cannot identify any signs of kidney stones, blood, infection. Nothing else to explain her symptoms currently. Patient was referred for outpatient follow-up. Return for any new or worsening issues. Treatment Plan: As above Disposition: Discharge Impression: Right flank pain This note was generated with [employer] dictation software. It may contain incorrect words, spelling, and punctuation that were not noted in review of the chart prior to signing ED Disposition - Plan for ED Patient: Referrals: Giancarlo Espinosa MD [Primary Care Provider] -
--- NOTE | 2020-06-12 19:48 | ED.DEP ---
ED Disposition - Plan for ED Patient: Instructions: ED Flank Pain, Uncertain Cause Prescriptions: Ondansetron [Zofran Odt] 4 mg PO Q8H PRN PRN #10 tablet PRN Reason: Nausea Prescription Printed Referrals: Giancarlo Espinosa MD [Primary Care Provider] -
[2020-06-12 20:06] VITALS: BP 120/83; PULSE 71; RESP 16; O2SAT 95
== END 2020-06-12 20:09 | disposition home or self-care (01) ==
LOC: ED 17:44
PROVIDERS: Emergency Provider Emergency Medicine; PCP Family Medicine
DX: R10.9 Unspecified abdominal pain (principal); Z87.442 Personal history of urinary calculi
CPT/HCPCS: 74176; 80048; 81001; 84703; 85025; 96361; 96374; 96375; 99283; J7030; J2405

== ENCOUNTER 2020-09-11 17:41 | Emergency (ER) | payer MEDICAID, SELFPAY ==
[2020-09-11 17:42] VITALS: BP 130/92; PULSE 107; RESP 20; TEMP 36.9; O2SAT 95; BMI 31.4
--- NOTE | 2020-09-11 18:22 | EX.ED.DYSGE1 ---
HPI History of Present Illness Chief Complaint: Seizure Informant: patient Onset/Context/Timing Onset: Today Context: Sudden Onset Timing: Continuous Quality: Stabbing Location: Generalized Worsened by: Nothing Relieved by: Nothing Narrative Narrative: Patient presents with seizure that occurred today. Patient does not remember any events during the seizure. Patient states she has a history of tonic-clonic seizures. Patient states this feels similar to prior seizures. Patient hit her head. Patient complains of a headache. Patient denies any paresthesias or weakness. Patient states she has stabbing pain all over. Patient states they normally give her IV fluids, a headache cocktail, and morphine when she has a seizure. [facility] Medical History IUD (intrauterine device) in place Seizures Home Medications amitriptyline 300 mg PO QHS 04/02/18 [History Last Taken 01/29/20] meloxicam 15 mg PO DAILY PRN 12/11/18 [History Last Taken 01/29/20] omeprazole 20 mg PO DAILY 12/11/18 [History Last Taken 01/29/20] ondansetron 4 mg PO Q8H PRN PRN #10 tab 01/21/19 [Rx Last Taken Unknown] divalproex 500 mg PO BIDCM #60 tab 02/05/20 [Rx Last Taken Unknown] melatonin 3 mg PO QHS PRN PRN #30 tab 02/05/20 [Rx Last Taken Unknown] gabapentin 200 mg PO TID 06/12/20 [History Last Taken Unknown] hydroxyzine pamoate 25 - 50 mg PO TID 09/11/20 [History Last Taken Unknown] Allergy/AdvReac Type Severity Reaction Status Date / Time naproxen [From Naprosyn] Allergy Hives Verified 09/11/20 17:42 Penicillins AdvReac Vomiting Verified 09/11/20 17:42 Surgical History Hx of appendectomy Social History Smoking Status: Never smoker ROS ROS ED Constitutional Constitutional ED: Denies chills or fever(s) Eyes Eyes: Denies blurry vision or change in vision ENT ENT ED: Denies rhinorrhea or sore throat Cardiovascular Cardiovascular: Denies chest pain or palpitations Respiratory/Chest Respiratory/Chest: Denies cough or dyspnea Gastrointestinal Gastrointestinal: Denies nausea or vomiting Genitourinary Genitourinary ED: Denies dysuria or hematuria Musculoskeletal Musculoskeletal: Denies back pain or neck pain Integumentary Denies abscess or rash Neurologic Neurologic: Denies headache(s) or weakness Allergic/Immunologic Allergic/Immunologic ED: Denies mouth swelling or urticaria EXAM Physical Exam Const Vital Signs: 09/11/20 17:42 09/11/20 19:00 Temperature 98.4 F Temperature Source Oral Pulse Rate 107 H 101 H Respiratory Rate 20 H 20 H Blood Pressure 130/92 H 102/70 Blood Pressure Mean 104 80 Pulse Ox 95 97 Oxygen Delivery Method Room Air Room Air Positive well nourished, well developed and obese General Appearance ED: well developed Nutritional Appearance: obese HEENT Reports moist mucous membranes HEENT Narrative: There is a superficial abrasion over the right forehead. There is no bleeding. There is no bony crepitance or step-off. Neck supple and no JVD Resp normal respiratory effort and clear to auscultation bilaterally Cardio regular rate, regular rhythm and no murmurs GI normal to inspection, nondistended, normoactive bowel sounds and non-tender Palpation: soft Extremity normal to inspection General Extremety ED: Negative for edema or tenderness General Extremity: Negative for edema Neuro oriented x3, CN's II-XII intact bilaterally and no sensory deficits noted Sensorium / Orientation: alert Motor Exam: strength 5/5 throughout Psych mental status grossly normal Skin no rashes or lesions noted MDM MDM MDM Narrative Medical decision making narrative: Depakote level was obtained and was less than 3. On reevaluation, patient states he is still taking it and has not missed any doses. Patient was instructed to continue her seizure medications. Patient was instructed to follow-up with her primary care physician in 3 to 5 days. Patient understood and was agreeable with the plan. All questions were answered. Lab Data Attestation: I reviewed the patient's lab results. Labs: Laboratory Results - last 24 hr 09/11/20 18:28 Valproic Acid < 3 L Discharge Plan Triage Chief Complaint: Seizure ED Provider: Femi Iraheta Dx/Rx/DC Orders Clinical Impression: Seizure Instructions: ED Seizure, Recurrent (Adult) Prescriptions: No Action amitriptyline 100 MG tablet 300 mg PO QHS RF: 0 meloxicam 15 MG tablet 15 mg PO DAILY PRN (Reason: Pain) RF: 0 omeprazole 20 MG capsule,delayed release(DR/EC) 20 mg PO DAILY RF: 0 ondansetron 4 MG tablet 4 mg PO Q8H PRN PRN (Reason: Nausea) Qty: 10 RF: 0 divalproex 250 MG tablet 500 mg PO BIDCM Qty: 60 RF: 0 melatonin 3 MG tablet 3 mg PO QHS PRN PRN (Reason: Insomnia) Qty: 30 RF: 0 gabapentin 100 MG capsule 200 mg PO TID RF: 0 hydroxyzine pamoate 25 mg capsule 25 - 50 mg PO TID RF: 0 Primary Care Provider: Giancarlo Espinosa Referrals: Giancarlo Espinosa MD [Primary Care Provider] - 3-5 Days Disposition Disposition: Home, Self Care
[2020-09-11] MEDS: 0.9% Normal Saline 1,000 ML 999 ML IV (18:47)
[2020-09-11] MEDS: proCHLORPERazine 10 MG/2 ML Vial IV (18:49)
[2020-09-11] MEDS: DiphenhydrAMINE 50 MG/ML Syringe 25 MG IV (18:52)
[2020-09-11 19:00] VITALS: BP 102/70; PULSE 101; RESP 20; O2SAT 97
[2020-09-11 19:25] LABS: Valproic Acid (Depakene) Level < 3 ug/mL (50-100)
[2020-09-11 20:31] VITALS: BP 107/70
== END 2020-09-11 20:32 | disposition home or self-care (01) ==
PROVIDERS: Emergency Provider Emergency Medicine; PCP Family Medicine
DX: R56.9 Unspecified convulsions (principal); E66.9 Obesity, unspecified
CPT/HCPCS: 80164; 96361; 96374; 96375; 99285; A4216

== ENCOUNTER 2021-01-15 10:05 | Emergency (ER) | payer MEDICAID, SELFPAY ==
[2021-01-15 10:08] VITALS: BP 130/83; PULSE 105; RESP 14; TEMP 36.6; O2SAT 96; BMI 29.7
--- NOTE | 2021-01-15 10:12 | EDS_ITS ---
HPI History of Present Illness Chief Complaint: Seizure Informant: patient and EMS Narrative Narrative: 40-year-old female with a history of epilepsy reportedly had 30 second generalized seizure while walking today. 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 EMS was called and they found her postictal and she has since become more appropriate. She tells me she takes Depakote for her seizures. She states that she has not seen a neurologist because it is too far away but then states that she saw them here locally at the [facility]. She cannot tell me who prescribes her Depakote. She can tell me that she has not missed any doses and that she has her medication. Patient states that she generally hurts all over [facility] Medical History IUD (intrauterine device) in place Seizures Medical History no medical history Home Medications amitriptyline 300 mg PO QHS 04/02/18 [History Last Taken 01/29/20] meloxicam 15 mg PO DAILY PRN 12/11/18 [History Last Taken 01/29/20] ondansetron 4 mg PO Q8H PRN PRN #10 tab 01/21/19 [Rx Last Taken Unknown] divalproex 500 mg PO BIDCM #60 tab 02/05/20 [Rx Last Taken Unknown] melatonin 3 mg PO QHS PRN PRN #30 tab 02/05/20 [Rx Last Taken Unknown] gabapentin 200 mg PO TID 06/12/20 [History Last Taken Unknown] hydroxyzine pamoate 25 - 50 mg PO TID 09/11/20 [History Last Taken Unknown] Allergy/AdvReac Type Severity Reaction Status Date / Time naproxen [From Naprosyn] Allergy Hives Verified 01/15/21 10:07 Penicillins AdvReac Vomiting Verified 01/15/21 10:07 Surgical History Hx of appendectomy Social History (Updated 01/15/21 @ 10:[address] Sonu Hale DO) Smoking Status: Never smoker substance use type: amphetamines ROS ROS ED Constitutional Constitutional ED: Denies chills, fever(s) or weight loss Eyes Eyes: Denies change in vision or diplopia ENT ENT ED: Denies ear pain, rhinorrhea or sore throat Cardiovascular Cardiovascular: Denies chest pain, orthopnea, palpitations or racing heartbeat Respiratory/Chest Respiratory/Chest: Denies cough, dyspnea or orthopnea Gastrointestinal Gastrointestinal: Denies abdominal pain, diarrhea, nausea or vomiting Genitourinary Genitourinary ED: Denies dysuria, hematuria or urinary frequency Musculoskeletal Musculoskeletal: Reports myalgias; Denies arthralgias Integumentary Denies abscess or rash Neurologic Neurologic: Reports headache(s); Denies weakness Psychiatric Psychiatric: Denies anxiety, depression, suicidal ideation or suicidal thoughts Endocrine Endocrinology: Denies polydipsia, polyphagia or polyuria Allergic/Immunologic Allergic/Immunologic ED: Denies mouth swelling, tongue swelling or urticaria EXAM Physical Exam Const Vital Signs: 01/15/21 10:08 01/15/21 11:09 01/15/21 12:26 Temperature 98 F Temperature Source Temporal Pulse Rate 105 H 90 84 Respiratory Rate 14 16 16 Blood Pressure 130/83 H 126/92 H 121/92 H Blood Pressure Mean 98 103 101 Pulse Ox 96 97 98 Oxygen Delivery Method Room Air Room Air Positive well nourished and well developed General Appearance ED: well developed HEENT Reports normocephalic, head/scalp atraumatic, TM's clear and moist mucous membranes Negative for trauma Tympanic Membrane ED: Yes TM's clear Eyes PERRL and EOMs intact bilaterally Neck no lymphadenopathy, supple and no JVD Resp normal respiratory effort and clear to auscultation bilaterally Cardio regular rate, regular rhythm and no murmurs GI normal to inspection, nondistended, normoactive bowel sounds and non-tender Palpation: soft Back/Spine no CVA tenderness and normal ROM Extremity normal to inspection General Extremety ED: Negative for edema General Extremity: Negative for edema Neuro oriented x3 and CN's II-XII intact bilaterally Neuro Narrative: Patient appears very restless in the bed with myoclonic jerks more consistent with amphetamine abuse Sensorium / Orientation: alert Motor Exam: strength 5/5 throughout Psych mental status grossly normal Mood & Affect: Negative for depressed or tearful Skin no rashes or lesions noted and no wounds MDM MDM MDM Narrative Medical decision making narrative: I informed the patient that she has no Depakote in her system. She tells me that she lied to me at the first and that she has not been taking it because she does not want to take it. She states that she has her medication and she has refills at the pharmacy. She understands that if she does not take her Depakote she will have seizures. She does not wish to explain why she is not taking it. Patient was loaded with Depakote. To be discharged home. Lab Data Attestation: I reviewed the patient's lab results. Labs: Laboratory Results - last 24 hr 01/15/21 01/15/21 01/15/21 10:24 10:24 10:24 WBC 5.2 RBC 3.64 L Hgb 12.3 Hct 36.8 L MCV 101.1 H MCH 33.8 H MCHC 33.4 RDW Std Deviation 47.8 H RDW Coeff of Walt 13.0 Plt Count 311 MPV 9.5 Immature Gran % (Auto) 0.400 Neut % (Auto) 62.1 Lymph % (Auto) 24.8 Sawyer % (Auto) 10.9 H Eos % (Auto) 1.4 Baso % (Auto) 0.4 Absolute Neuts (auto) 3.2 Absolute Lymphs (auto) 1.28 Nucleated RBC % 0 Sodium 137 Potassium 3.7 Chloride 103 Carbon Dioxide 26.0 Anion Gap 8 BUN 12 Creatinine 0.93 Estim Creat Clear Calc 63.60 Est GFR (MDRD) Af Amer 85 Est GFR (MDRD) Non-Af 70 BUN/Creatinine Ratio 12.9 Glucose 139 H Calcium 9.6 Total Bilirubin 0.60 AST 68 H ALT 66 H Alkaline Phosphatase 88 Total Protein 7.9 Albumin 3.4 Globulin 4.5 H Albumin/Globulin Ratio 0.8 L Valproic Acid < 3 L Discharge Plan Triage Chief Complaint: Seizure ED Provider: Sonu Hale Dx/Rx/DC Orders Clinical Impression: Seizure, Methamphetamine abuse Instructions: ED Seizure, Recurrent (Adult) Prescriptions: No Action amitriptyline 100 MG tablet 300 mg PO QHS RF: 0 meloxicam 15 MG tablet 15 mg PO DAILY PRN (Reason: Pain) RF: 0 ondansetron 4 MG tablet 4 mg PO Q8H PRN PRN (Reason: Nausea) Qty: 10 RF: 0 divalproex 250 MG tablet 500 mg PO BIDCM Qty: 60 RF: 0 melatonin 3 MG tablet 3 mg PO QHS PRN PRN (Reason: Insomnia) Qty: 30 RF: 0 gabapentin 100 MG capsule 200 mg PO TID RF: 0 hydroxyzine pamoate 25 mg capsule 25 - 50 mg PO TID RF: 0 Primary Care Provider: Giancarlo Espinosa Referrals: Giancarlo Espinosa MD [Primary Care Provider] - As soon as possible Activity Restrictions/Additional Instructions: It is strongly recommended by multiple medical societies that to help prevent further seizures you should take your seizure medication Disposition Disposition: Home, Self Care
[2021-01-15 10:38] LABS: Absolute Lymphocyte Count 1.28 X10^3/uL (0.83-4.51); Absolute Neutrophil Count 3.2 X10^3/uL (2.0-7.7); Basophil# 0.02 X10^3/uL; Basophil% 0.4 % (0-1); Eosinophil# 0.07 X10^3/uL; Eosinophils% 1.4 % (0-5); Hematocrit 36.8 % (37-47); Hemoglobin 12.3 g/dL (12.0-15.0); Lymphocyte # 1.28 X10^3/ul (0.83-4.51); Lymphocyte % 24.8 % (19-41); Mean Corp Hgb Conc 33.4 g/dL (32-36); Mean Corpuscular Hgb 33.8 pg (27.0-32.0); Mean Corpuscular Volume 101.1 fL (81-99); Mean Platelet Vol. 9.5 fl (6.2-12.0); Monocyte# 0.56 X10^3/uL; Monocyte% 10.9 % (0-10); NRBC Flagged by Analyzer 0 % (0-5); Neutrophil # 3.21 X10^3/uL (2.7-7.7); Neutrophil % 62.1 % (47-70); Platelet Count 311 K/mm3 (150-450); RBC Distribution Width SD 47.8 fl (35.1-43.9); Red Blood Count 3.64 M/mm3 (4.2-5.4); White Blood Count 5.2 K/mm3 (4.4-11.0)
[2021-01-15 10:55] LABS: ALB/GLOB Ratio 0.8 RATIO (0.9-2.4); AST(SGOT) 68 U/L (15-37); Alanine Aminotransfer ALT/SGPT 66 U/L (13-56); Albumin, Serum 3.4 g/dL (3.2-5.0); Alkaline Phosphatase 88 U/L (45-117); Anion Gap 8 (5-15); BUN 12 mg/dL (7-18); BUN/Creat Ratio 12.9 RATIO (10-20); Calcium,Total 9.6 mg/dL (8.5-10.1); Chloride 103 mmol/L (98-107); Creatinine, Serum 0.93 mg/dL (0.55-1.02); EST Glomerular Filtration Rate 70 mL/min (>60); Est Glom Filt Rate - Afr Amer 85 mL/min (>60); Globulin 4.5 g/dL (2.2-4.2); Glucose 139 mg/dL (74-106); Potassium 3.7 mmol/L (3.5-5.1); Protein, Total 7.9 g/dL (6.4-8.2); Sodium Level 137 mmol/L (136-145)
[2021-01-15 11:05] LABS: Valproic Acid (Depakene) Level < 3 ug/mL (50-100)
[2021-01-15 11:09] VITALS: BP 126/92; PULSE 90; RESP 16; O2SAT 97
[2021-01-15 12:26] VITALS: BP 121/92; PULSE 84; RESP 16; O2SAT 98
[2021-01-15 14:49] VITALS: BP 117/90; PULSE 97; RESP 20
== END 2021-01-15 14:50 | disposition home or self-care (01) ==
PROVIDERS: Emergency Provider Emergency Medicine; PCP Family Medicine
DX: G40.909 Epilepsy, unspecified, not intractable, without status epilepticus (principal); F15.10 Other stimulant abuse, uncomplicated; Z79.899 Other long term (current) drug therapy
CPT/HCPCS: 80053; 80164; 85025; 96365; 96366; 99285; J7050; A4216

== ENCOUNTER 2021-06-22 12:09 | Emergency (ER) | payer MEDICAID, SELFPAY ==
[2021-06-22 12:10] VITALS: BP 115/85; PULSE 112; RESP 18; TEMP 36.2; O2SAT 100; BMI 32.0
--- NOTE | 2021-06-22 12:28 | CT_ITS ---
STUDY: CT BRAIN WITHOUT CONTRAST REASON FOR EXAM: Female, 41 years old. Headache after trauma RADIATION DOSAGE (If Supplied By Facility): CTDIvol = ( 47.06 ) mGy, DLP = ( 837.39 ) mGycm TECHNIQUE: Transaxial CT imaging of the brain was performed without administration of intravenous contrast material. Individualized dose optimization techniques were used for this CT. COMPARISON: No relevant priors. FINDINGS: Normal soft tissue structures. Normal calvarium. Normal size ventricles and extra-axial spaces for the patient''s age. Normal white matter tracts of the cerebral hemispheres. Normal basal ganglia and thalami. Normal brainstem. Normal cerebellum. There is no intracranial hemorrhage. There are no findings of an acute ischemic infarction. Normal visualized paranasal sinuses. CT/Brain/Head without Contrast IMPRESSION: Normal unenhanced CT scan of the brain. Electronically Signed: Noe Sanchez MD at 13:32 EDT ,
--- NOTE | 2021-06-22 12:33 | CT_ITS ---
STUDY: CT FACIAL BONES WITHOUT CONTRAST REASON FOR EXAM: Female, 41 years old. facial trauma RADIATION DOSAGE (If Supplied By Facility): CTDIvol = ( 25.01 ) mGy, DLP = ( 448.60 ) mGycm TECHNIQUE: The patient was scanned in a multi detector CT scanner. Sagittal and coronal images were reconstructed. Individualized dose optimization techniques were used for this CT. COMPARISON: None. FINDINGS: Normal soft tissue structures. Normal orbital freire and orbital contents. Normal nasal bones and anterior nasal spine. Normal facial bones. There is no demonstrated fracture. There is mucosal hypertrophy in the left maxillary sinus. The paranasal sinuses are otherwise clear. CT/Sinus/Facial Bone IMPRESSION: No facial fracture. Left maxillary sinusitis. Electronically Signed: Michael Ngo MD at 13:50 EDT ,
--- NOTE | 2021-06-22 12:33 | CT_ITS ---
STUDY: CT ABDOMEN AND PELVIS WITH CONTRAST REASON FOR EXAM: Female, 41 years old diffuse abdominal pain after a fall RADIATION DOSAGE (If Supplied By Facility): CTDIvol = ( 10.48 ) mGy, DLP = ( 625.49 ) mGycm TECHNIQUE: Transaxial images were obtained from the dome of the diaphragm to the symphysis pubis without oral contrast. IV 100mL [id number]-300 was administered. Sagittal and coronal images were reconstructed. Individualized dose optimization techniques were used for this CT. COMPARISON: None. FINDINGS: The visualized lung bases are unremarkable. The visualized portions of the heart are within normal limits. Normal liver. Normal gallbladder and extrahepatic biliary system. Normal spleen. Normal pancreas. Normal bilateral adrenal glands. No obstructive uropathy, there are punctate bilateral renal stones. Normal visualized stomach. Nondistended fluid-filled small bowel loops are noted consistent with ileus. This is likely due to retained stool throughout the colon. . There is non-visualization of the appendix. Normal abdominal aorta. Normal inferior vena cava. Normal retroperitoneum. Normal urinary bladder. Uterus contains an IUD. There is abnormal heterogeneity within a significantly distended endometrium perhaps representing an endometrial or myometrial hematoma. Physiologic ovarian cysts are noted, no suspicious adnexal mass or free fluid. Normal abdominal wall. Normal osseous structures. CT/Abdomen/Pelvis W IV Cont ONLY IMPRESSION: No suspicious solid organ abnormality, punctate nonobstructing renal stones. Small bowel ileus likely due to retained stool throughout the colon Uterus contains an IUD. There is also abnormal heterogeneous collection within the uterus measuring approximately 6.44 x 7.48 x 7.14 cm. This may represent a myometrial or endometrial hematoma. Pelvic ultrasound may be of benefit for further evaluation No free intraperitoneal fluid, air, or suspicious adenopathy Electronically Signed: Noe Sanchez MD at 13:44 EDT ,
--- NOTE | 2021-06-22 12:35 | ED.VIS.FALL ---
HPI HPI - Fall History of Present Illness Chief Complaint: Fall Narrative Narrative: Patient states she fell 2 days ago, down an entire flight of steps. She is amnestic to part of it and wonders if maybe she had a seizure, she has a history of a seizure disorder and is compliant with her Depakote, she states she typically has breakthrough seizures whenever she is under a lot of stress which she has been lately because her significant other was in [facility]. He is out now. She has had no recent illness. She denies any headaches or vomiting but she has had facial pain, right low back pain, right mid abdomen pain. No vomiting, no hematuria, no bright red blood per rectum. PFSH PFSH Medical History IUD (intrauterine device) in place Seizures Home Medications amitriptyline 300 mg PO QHS 04/02/18 [History Last Taken 01/29/20] meloxicam 15 mg PO DAILY PRN 12/11/18 [History Last Taken 01/29/20] ondansetron 4 mg PO Q8H PRN PRN #10 tab 01/21/19 [Rx Last Taken Unknown] divalproex 500 mg PO BIDCM #60 tab 02/05/20 [Rx Last Taken Unknown] melatonin 3 mg PO QHS PRN PRN #30 tab 02/05/20 [Rx Last Taken Unknown] gabapentin 200 mg PO TID 06/12/20 [History Last Taken Unknown] hydroxyzine pamoate 25 - 50 mg PO TID 09/11/20 [History Last Taken Unknown] promethazine 25 mg PO Q6H PRN PRN #10 tablet 06/22/21 [Rx Last Taken Unknown] tramadol 50 mg PO Q4H PRN PRN 2 Days #8 tab 06/22/21 [Rx Last Taken Unknown] Allergy/AdvReac Type Severity Reaction Status Date / Time naproxen [From Naprosyn] Allergy Hives Verified 06/22/21 12:13 Surgical History Hx of appendectomy Social History Smoking Status: Never smoker substance use type: amphetamines ROS ROS ED Constitutional Constitutional ED: Denies chills or fever(s) Eyes Eyes: Denies change in vision or diplopia ENT ENT ED: Reports facial pain and nose pain; Denies ear pain, epistaxis or rhinorrhea Cardiovascular Cardiovascular: Denies chest pain or palpitations Respiratory/Chest Respiratory/Chest: Denies cough or dyspnea Gastrointestinal Gastrointestinal: Reports abdominal pain; Denies diarrhea, melena, nausea or vomiting Genitourinary Genitourinary ED: Denies dysuria or hematuria Musculoskeletal Musculoskeletal: Reports back pain; Denies extremity pain or neck pain Integumentary Reports Abrasions; Denies abscess, laceration or rash Neurologic Neurologic: Denies confusion, headache(s), paresthesias or weakness EXAM Physical Exam Const Vital Signs: 06/22/21 12:10 06/22/21 13:07 Temperature 97.1 F L Temperature Source Temporal Pulse Rate 112 H Respiratory Rate 18 Respiratory Effort Normal Non-Labored Respiratory Pattern Normal Blood Pressure 115/85 H Blood Pressure Mean 95 Pulse Ox 100 Oxygen Delivery Method Room Air Positive well nourished and well developed General Appearance ED: well developed and NAD HEENT Reports TM's clear and nasal mucous membranes and turbinates normal HEENT Narrative: Tender at nasal bridge without deformity. There is a small healing abrasion here. Midface is nontender and stable but she has bilateral periorbital ecchymosis worse on the left. No otorhinorrhea. raccoon eyes Face and Sinus: facial tenderness Tympanic Membrane ED: Yes TM's clear Eyes PERRL and EOMs intact bilaterally Eyes Narrative: Partially resolving subconjunctival hemorrhage left temporal conjunctive a. No hyphema grossly. EOMI without pain or entrapment. No palpable subcutaneous emphysema periorbital tissues. No proptosis, no enophthalmos. No infraorbital hypoesthesia. Visual Acuity: other Other Details: no entrapment or pain with extraocular movements Neck full ROM and supple General: Negative for tenderness Chest Wall inspection of chest normal and palpation of chest normal Chest: symmetrical chest wall rise; Negative for crepitus or tenderness Resp normal respiratory effort and clear to auscultation bilaterally Percussion: other equal BS bilat Cardio no murmurs Rate: regular rate Rhythm: regular rhythm GI normal to inspection, nondistended, normoactive bowel sounds and soft to palpation GI Narrative: Very tender right mid abdomen and lower quadrant with voluntary guarding, no rebound tenderness. No Galileo sign. Back/Spine normal ROM Back/Spine Narrative: No spinal tenderness, but there is significant tenderness in the right buttock soft tissues and the right pelvic brim, no pelvis instability or crepitance or deformities. Ecchymosis without tenderness in the left flank possibly consistent with Jones Higgins sign. Cervical Spine: Negative for cervical spine tenderness Thoracic Spine / Upper Back: Negative for thoracic spinal tenderness Lumbar Spine / Lower Back: Negative for lumbar spinal tenderness Extremity normal to inspection and full ROM Extremity Narrative: Normal to inspection except for multiple small contusions on both shins with some healing abrasions. General Extremety ED: Negative for tenderness Neuro oriented x3, CN's II-XII intact bilaterally, moves all extremities, no focal motor deficits and no sensory deficits noted [place] Coma Scale: document GCS findings Spontaneous Obeys Commands Oriented 15 Sensorium / Orientation: awake and alert Psych mental status grossly normal and thought process normal Skin Lesions: no lesions Rashes: no rashes Trauma: abrasion MDM MDM MDM Narrative Medical decision making narrative: Given the patient's findings my concern was for retroperitoneal and/or organ injury in addition to the possibility of an intracranial/facial injury. Therefore CTs of these areas were obtained, they were all normal. Patient is reassured. She was given a dose of morphine for pain, it did help. She has no urinary symptoms, but she does have signs of infection there as well as a trace amount of blood, the latter of which has been seen in the past. I sent that for a culture, and she is wanting something for pain. She was advised that she simply has contusions, so she will be given a very short supply of tramadol. Lab Data Attestation: I reviewed the patient's lab results. Labs: Laboratory Results - last 24 hr 06/22/21 06/22/21 06/22/21 12:48 12:57 12:57 WBC 6.4 RBC 3.73 L Hgb 12.1 Hct 36.5 L MCV 97.9 MCH 32.4 H MCHC 33.2 RDW Std Deviation 45.4 H RDW Coeff of Walt 12.7 Plt Count 326 MPV 9.2 Immature Gran % (Auto) 0.500 Neut % (Auto) 56.0 Lymph % (Auto) 31.1 [place] % (Auto) 9.0 Eos % (Auto) 2.5 Baso % (Auto) 0.9 Absolute Neuts (auto) 3.6 Absolute Lymphs (auto) 2.00 Nucleated RBC % 0 Sodium 137 Potassium 3.7 Chloride 105 Carbon Dioxide 27.0 Anion Gap 5 BUN 13 Creatinine 0.78 Estim Creat Clear Calc 75.07 Est GFR (MDRD) Af Amer 104 Est GFR (MDRD) Non-Af 86 BUN/Creatinine Ratio 16.6 Glucose 89 Calcium 8.4 L Total Bilirubin 0.40 Direct Bilirubin 0.08 AST 23 ALT 34 Alkaline Phosphatase 115 Total Protein 7.6 Albumin 3.6 Globulin 4.0 Serum , Qual Urine Color Yellow Urine Clarity Sl. Cloudy Urine pH 6.5 Ur Specific [place] 1.015 Urine Protein 30 H Urine Glucose (UA) Normal Urine Ketones 5 H Urine Occult Blood 10 H Urine Nitrite Negative Urine Bilirubin Negative Urine Urobilinogen Normal Ur Leukocyte Esterase 500 H Urine RBC 0-5 SEEN Urine WBC 25-50 SEEN Ur Squamous Epith Cells 0-5 SEEN Urine Bacteria 2+ Urine Mucus 2+ 06/22/21 12:57 WBC RBC Hgb Hct MCV MCH MCHC RDW Std Deviation RDW Coeff of Walt Plt Count MPV Immature Gran % (Auto) Neut % (Auto) Lymph % (Auto) [place] % (Auto) Eos % (Auto) Baso % (Auto) Absolute Neuts (auto) Absolute Lymphs (auto) Nucleated RBC % Sodium Potassium Chloride Carbon Dioxide Anion Gap BUN Creatinine Estim Creat Clear Calc Est GFR (MDRD) Af Amer Est GFR (MDRD) Non-Af BUN/Creatinine Ratio Glucose Calcium Total Bilirubin Direct Bilirubin AST ALT Alkaline Phosphatase Total Protein Albumin Globulin Serum , Qual NEGATIVE Urine Color Urine Clarity Urine pH Ur Specific [place] Urine Protein Urine Glucose (UA) Urine Ketones Urine Occult Blood Urine Nitrite Urine Bilirubin Urine Urobilinogen Ur Leukocyte Esterase Urine RBC Urine WBC Ur Squamous Epith Cells Urine Bacteria Urine Mucus Radiography Diagnostic Testing: Clinical Impression(s) from Imaging Studies Brain CT 06/22/21 12:28 IMPRESSION: Normal unenhanced CT scan of the brain. Electronically Signed: Noe Sanchez MD at 13:32 EDT , Abdomen/Pelvis CT 06/22/21 12:33 IMPRESSION: No suspicious solid organ abnormality, punctate nonobstructing renal stones. Small bowel ileus likely due to retained stool throughout the colon Uterus contains an IUD. There is also abnormal heterogeneous collection within the uterus measuring approximately 6.44 x 7.48 x 7.14 cm. This may represent a myometrial or endometrial hematoma. Pelvic ultrasound may be of benefit for further evaluation No free intraperitoneal fluid, air, or suspicious adenopathy Electronically Signed: Noe Sanchez MD at 13:44 EDT , Facial/Sinus 06/22/21 12:33 IMPRESSION: No facial fracture. Left maxillary sinusitis. Electronically Signed: Michael Ngo MD at 13:50 EDT , Discharge Plan Triage Chief Complaint: Fall Other Complaint: Syncope ED Provider: Jovanni Santos Dx/Rx/DC Orders Clinical Impression: Contusion of face, Closed head injury without concussion, Blunt injury of abdomen, Low back strain, Accidental fall on or from stairs or steps, Traumatic subconjunctival hemorrhage of left eye Instructions: ED Abd Injury Blunt Benign, ED Subconjunctival Hemorrhage Prescriptions: New tramadol 50 MG tablet 50 mg PO Q4H PRN PRN (Reason: Pain) 2 Days Qty: 8 RF: 0 promethazine [promethazine] 25 MG tablet 25 mg PO Q6H PRN PRN (Reason: Nausea) Qty: 10 RF: 0 No Action amitriptyline 100 MG tablet 300 mg PO QHS RF: 0 meloxicam 15 MG tablet 15 mg PO DAILY PRN (Reason: Pain) RF: 0 ondansetron 4 MG tablet 4 mg PO Q8H PRN PRN (Reason: Nausea) Qty: 10 RF: 0 divalproex 250 MG tablet 500 mg PO BIDCM Qty: 60 RF: 0 melatonin 3 MG tablet 3 mg PO QHS PRN PRN (Reason: Insomnia) Qty: 30 RF: 0 gabapentin 100 MG capsule 200 mg PO TID RF: 0 hydroxyzine pamoate 25 mg capsule 25 - 50 mg PO TID RF: 0 Primary Care Provider: Giancarlo Espinosa Referrals: Giancarlo Espinosa MD [Primary Care Provider] - Disposition Disposition: Home, Self Care
[2021-06-22 12:57] LABS: Color, Urine Yellow (Yellow); Glucose, Dipstick Normal (Normal); Ketone-Dipstick 5 mg/dl (Negative); Leukocyte Esterase-Dipstick 500 /ul (Negative); Nitrite-Dipstick Negative (Negative); Occult Blood-Urine 10 /ul (Negative); Protein-Dipstick 30 mg/dl (Negative); Specific Gravity, Urine 1.015 (1.002-1.030); Urine Bilirubin Dipstick Negative (Negative); Urine Clarity Sl. Cloudy (Clear); Urine Urobilinogen Normal (Normal); Urine pH 6.5 (5.0 - 8.0)
[2021-06-22] MEDS: Morphine 4 MG/ML Syringe IV (13:02)
[2021-06-22] MEDS: 0.9% Normal Saline 1,000 ML 999 ML IV (13:02)
[2021-06-22] MEDS: Ondansetron 4 MG/2 ML Vial IV (13:02)
[2021-06-22 13:14] LABS: Bacteria 2+ /hpf (None Seen); Mucous, Urine 2+ /hpf (<or=2+); Red Blood Cells-Urine 0-5 SEEN /hpf (0-5); Squamous Epithelial Cells - UA 0-5 SEEN /hpf (5-10); White Blood Cells 25-50 SEEN /hpf (0-5)
[2021-06-22 13:25] LABS: Absolute Neutrophil Count 3.6 X10^3/uL (2.0-7.7); Basophil# 0.06 X10^3/uL; Basophil% 0.9 % (0-1); Eosinophil# 0.16 X10^3/uL; Eosinophils% 2.5 % (0-5); Hematocrit 36.5 % (37-47); Hemoglobin 12.1 g/dL (12.0-15.0); Lymphocyte % 31.1 % (19-41); Mean Corp Hgb Conc 33.2 g/dL (32-36); Mean Corpuscular Hgb 32.4 pg (27.0-32.0); Mean Corpuscular Volume 97.9 fL (81-99); Mean Platelet Vol. 9.2 fl (6.2-12.0); Monocyte# 0.58 X10^3/uL; NRBC Flagged by Analyzer 0 % (0-5); Platelet Count 326 K/mm3 (150-450); RBC Distribution Width CV 12.7 % (11.6-14.6); RBC Distribution Width SD 45.4 fl (35.1-43.9); Red Blood Count 3.73 M/mm3 (4.2-5.4); White Blood Count 6.4 K/mm3 (4.4-11.0)
[2021-06-22 13:32] LABS: AST(SGOT) 23 U/L (15-37); Alanine Aminotransfer ALT/SGPT 34 U/L (13-56); Albumin, Serum 3.6 g/dL (3.2-5.0); Alkaline Phosphatase 115 U/L (45-117); Anion Gap 5 (5-15); BUN 13 mg/dL (7-18); BUN/Creat Ratio 16.6 RATIO (10-20); Bilirubin, Direct 0.08 mg/dL (0.00-0.30); Calcium,Total 8.4 mg/dL (8.5-10.1); Chloride 105 mmol/L (98-107); Creatinine, Serum 0.78 mg/dL (0.55-1.02); EST Glomerular Filtration Rate 86 mL/min (>60); Est Glom Filt Rate - Afr Amer 104 mL/min (>60); Estimated Creatinine Clearance 75.07 ml/min; Glucose 89 mg/dL (74-106); Potassium 3.7 mmol/L (3.5-5.1); Protein, Total 7.6 g/dL (6.4-8.2); Sodium Level 137 mmol/L (136-145)
[2021-06-22 13:43] LABS: Internal QC Validated? YES +Cl - CLEAR BKGD; Pregnancy, Serum, hCG Quali. NEGATIVE Negative
[2021-06-22 14:54] VITALS: BP 138/77; PULSE 72; RESP 15; O2SAT 98
== END 2021-06-22 14:55 | disposition home or self-care (01) ==
PROVIDERS: Emergency Provider Emergency Medicine; PCP Family Medicine; Visit Provider Emergency Medicine
DX: S00.83XA Contusion of other part of head, initial encounter (principal); R56.9 Unspecified convulsions; S09.90XA Unspecified injury of head, initial encounter; S39.91XA Unspecified injury of abdomen, initial encounter; S39.012A Strain of muscle, fascia and tendon of lower back, initial encounter; H11.32 Conjunctival hemorrhage, left eye; Z79.899 Other long term (current) drug therapy; W10.9XXA Fall (on) (from) unspecified stairs and steps, initial encounter
CPT/HCPCS: 70450; 70486; 74177; 80048; 80076; 81001; 84703; 85025; 87086; 87088; 96374; 96375; 99284; J7030; Q9967; J2405

== ENCOUNTER 2022-03-01 13:05 | Emergency (ER) | payer MEDICAID, SELFPAY ==
[2022-03-01 13:05] VITALS: BP 152/106; PULSE 119; RESP 24; TEMP 36.3; O2SAT 100; BMI 36.6
--- NOTE | 2022-03-01 14:14 | EX.ED.UPPERE ---
HPI History of Present Illness Chief Complaint: Laceration Narrative Narrative: 42-year-old female past medical history of multiple sclerosis and seizure disorder states that she was trying to apply plastic insulation to a window and using a fine hairer. She fell off the stepstool and her left arm fell onto a glass bowl. She sustained a laceration to her left forearm past her elbow that is down to the bone. She states she has numbness distally and difficulty moving her fingers. Her last tetanus immunization was in the last 6 to 10 years. She denies hitting her head or loss of consciousness. This happened approximately an hour ago. She has pain in her left forearm that is worse with movement. She is right-hand dominant. Tetanus Immunization: 5-10 years [facility] Medical History IUD (intrauterine device) in place Seizures Home Medications amitriptyline 100 mg tablet 300 mg PO QHS sleep 04/02/18 [History Last Taken 01/29/20] meloxicam 15 mg tablet 15 mg PO DAILY PRN Pain 12/11/18 [History Last Taken 01/29/20] ondansetron 4 mg disintegrating tablet 4 mg PO Q8H PRN PRN Nausea ##10 01/21/19 [Rx Last Taken Unknown] divalproex 250 mg tablet,delayed release 500 mg PO BIDCM ##60 02/05/20 [Rx Last Taken Unknown] melatonin 3 mg tablet 3 mg PO QHS PRN PRN Insomnia ##30 02/05/20 [Rx Last Taken Unknown] gabapentin 100 mg capsule 200 mg PO TID 06/12/20 [History Last Taken Unknown] hydroxyzine pamoate 25 mg capsule 25 - 50 mg PO TID 09/11/20 [History Last Taken Unknown] promethazine 25 mg tablet 25 mg PO Q6H PRN PRN Nausea #10 TABLETS 06/22/21 [Rx Last Taken Unknown] tramadol 50 mg tablet 50 mg PO Q4H PRN PRN Pain 2 days #8 tabs 06/22/21 [Rx Last Taken Unknown] cephalexin 500 mg capsule 500 mg PO TID #21 caps 03/01/22 [Rx Last Taken Unknown] ondansetron 4 mg disintegrating tablet 4 mg PO Q6H PRN nausea and vomiting #10 tabs 03/01/22 [Rx Last Taken Unknown] tramadol 50 mg tablet 50 mg PO TID PRN pain #9 tabs 03/01/22 [Rx Last Taken Unknown] Allergy/AdvReac Type Severity Reaction Status Date / Time naproxen [From Naprosyn] Allergy Hives Verified 03/01/22 13:09 Surgical History Hx of appendectomy Social History Smoking Status: Never smoker substance use type: amphetamines ROS ROS ED ROS Narrative Constitutional: No fever, no chills. HEENT: No sore throat. No neck pain. No loss of vision. No rhinorrhea. Cardiovascular: No chest pain. No palpitations. No pedal edema. Respiratory: No cough, no shortness of breath. Abdominal: No abdominal pain. No nausea. No vomiting. Genitourinary: No dysuria. No hematuria. Musculoskeletal: No myalgias. No arthralgias. Neurologic: No headaches. No dizziness. No lightheadedness. Skin: No rash. No change in color. Laceration to left forearm. Psychiatric: No depression. No anxiety. EXAM Physical Exam Narrative Exam Narrative: Afebrile. Vital signs noted. HEENT: Normocephalic. Atraumatic. PERRL, EOMI. Neck soft and supple. No point tenderness or step off. Cardiovascular: Positive tachycardia. No murmurs, rubs, or gallops appreciated. Respiratory: No tachypnea. Lungs clear to auscultation bilaterally. Gastrointestinal: Abdomen soft, nontender, with normoactive bowel sounds. No rebound or guarding. Neurological: Awake. Alert. Nonfocal, nonlateralizing. Skin: No rash. Normal color. No pallor. Musculoskeletal: No pedal edema. Limited range of motion of all fingers on left hand secondary to subjective pain. Positive flap-like laceration distal to elbow on medial forearm with muscle exposure. Const Vital Signs: 03/01/22 13:05 Temperature 97.4 F L Temperature Source Temporal Pulse Rate 119 H Respiratory Rate 24 H Blood Pressure 152/106 H Blood Pressure Mean 121 Pulse Ox 100 Oxygen Delivery Method Room Air MDM MDM MDM Narrative Medical decision making narrative: Initial view of the laceration is limited secondary to pain. Patient was administered morphine for analgesia. X-rays were obtained of the left forearm and 2 views. My interpretation of her x-ray shows no evidence of acute fracture. I discussed patient with Dr. Gagan Charles. Given the complicated laceration, and the fact that she has left fifth finger numbness, he thought that she would be better served with with close follow-up by an orthopedic hand surgeon/specialist. He suggested tacking the skin closed over the larger laceration, repairing the other laceration, placing her in a resting splint, I am starting her on antibiotics. Her tetanus immunization is up-to-date. Laceration repair was performed with a total of 23 simple interrupted sutures on the irregular portion of the smaller laceration and the skin tag closed with 8 simple interrupted sutures using four-point 0 nylon for better tensile strength. Bleeding was controlled. There is no emergent vascular compromise. Patient did require 2 doses of morphine for analgesia. She requested something at home for pain. She does have history of methamphetamine abuse and drug overdose. I reviewed her prescription report, and she has received tramadol in the past. I am uncomfortable treating her with narcotic pain medications for home use as she has a history of a drug overdose also. She was written prescriptions for Keflex, Zofran, and 9 tablets of tramadol. I discussed the patient with Dr. Cabrera who will follow up with her on Tuesday in his [place] office. She was given his contact information and will call the office tomorrow. CLAY can be discharged safely home with close follow-up to orthopedic hand surgery. Disposition is discharged home in stable condition. Procedures Lacerations Left forearm: Length: 7.87 in Depth: Muscle Shape: Flap (And distally, regular almost stellate lacerations) Prep: Sterile Conditions and Shure-Clens Laceration repair: Irrigated (Extensively), Lidocaine (1%), Local and Wound explored (No evidence of foreign body.) Number of Sutures/[place]: 31 Suture Information: Ethilon and 4-0 Comment: The large flap-like laceration was tacked together using eight 4.0 simple interrupted sutures with loose skin approximation. The remaining larger, irregular lacerations were closed using simple interrupted sutures with four-point 0 Ethilon with a total of 20 3 sutures. Discharge Plan Triage Chief Complaint: Laceration ED Provider: Edu Lorenzo Dx/Rx/DC Orders Clinical Impression: Fall, Laceration of forearm, left, complicated Instructions: ED Laceration Extremity Prescriptions: New ondansetron 4 mg tablet,disintegrating 4 mg PO Q6H PRN (Reason: nausea and vomiting) Qty: 10 0RF cephalexin 500 mg capsule 500 mg PO TID Qty: 21 0RF tramadol 50 mg tablet 50 mg PO TID PRN (Reason: pain) Qty: 9 0RF No Action amitriptyline 100 MG tablet 300 mg PO QHS meloxicam 15 MG tablet 15 mg PO DAILY PRN (Reason: Pain) ondansetron 4 MG tablet 4 mg PO Q8H PRN PRN (Reason: Nausea) Qty: 10 0RF divalproex 250 MG tablet 500 mg PO BIDCM Qty: 60 0RF melatonin 3 MG tablet 3 mg PO QHS PRN PRN (Reason: Insomnia) Qty: 30 0RF gabapentin 100 MG capsule 200 mg PO TID hydroxyzine pamoate 25 mg capsule 25 - 50 mg PO TID Label Comments: Take 1-2 capsules by mouth three times daily as needed for Anxiety. tramadol 50 MG tablet 50 mg PO Q4H PRN PRN (Reason: Pain) 2 Days Qty: 8 0RF promethazine [promethazine] 25 MG tablet 25 mg PO Q6H PRN PRN (Reason: Nausea) Qty: 10 0RF Primary Care Provider: Giancarlo Espinosa Referrals: Giancarlo Espinosa MD [Primary Care Provider] - Rick Cabrera MD [Non-Staff] - 2 Days Activity Restrictions/Additional Instructions: Call Dr. Cabrera with the [facility] at [phone]. Tell them you need an appointment in his [place] office on Tuesday. Take all the antibiotics as directed. Follow-up with orthopedic hand surgery closely. Disposition Disposition: Home, Self Care Discharge Date/Time: 03/01/22 19:07
[2022-03-01] MEDS: Morphine 4 MG/ML Syringe IV ×2 (14:16→16:08)
--- NOTE | 2022-03-01 14:38 | RAD_ITS ---
STUDY: X-RAY - LEFT RADIUS AND ULNA REASON FOR EXAM: Female, 42 years old. Laceration TECHNIQUE: 2 view(s) of the forearm. COMPARISON: None. FINDINGS: Soft tissue laceration overlying the medial aspect of the proximal forearm. Normal visualized radius. Normal visualized ulna. RAD/Forearm 2 Views IMPRESSION: Soft tissue laceration overlying the medial aspect of the proximal forearm. Electronically Signed: Reid Wright MD at 15:10 EST ,
[2022-03-01] MEDS: Lidocaine 1% (20 ml mdv) 20 ML Vial INFILT (15:52)
[2022-03-01] MEDS: Cephalexin 250 MG Capsule 500 MG PO (19:01)
== END 2022-03-01 19:07 | disposition home or self-care (01) ==
PROVIDERS: Emergency Provider Emergency Medicine; PCP Family Medicine; Visit Provider Emergency Medicine
DX: S51.812A Laceration without foreign body of left forearm, initial encounter (principal); G35 Multiple sclerosis; G40.909 Epilepsy, unspecified, not intractable, without status epilepticus; R20.0 Anesthesia of skin; W25.XXXA Contact with sharp glass, initial encounter
CPT/HCPCS: 12005; 73090; 96374; 96376; 99284; A4216

== ENCOUNTER 2022-03-05 16:07 | Emergency (ER) | payer MEDICAID, SELFPAY ==
[2022-03-05 16:10] VITALS: BP 142/94; PULSE 99; RESP 17; TEMP 37.1; O2SAT 100; BMI 38.4
[2022-03-05 16:15] VITALS: BP 142/94; PULSE 99; RESP 17; TEMP 37.1; O2SAT 100
--- NOTE | 2022-03-05 16:25 | EX.ED.DYSGE1 ---
HPI History of Present Illness Chief Complaint: Wound Informant: patient Onset/Context/Timing Onset: Days Context: Gradual Onset Current Severity: Moderate Maximum Severity: Moderate Narrative Narrative: Patient presents with wound check of the left arm. She suffered a fall 4 days ago with a deep laceration to her proximal left forearm. Sutures were placed but there is concern for muscle and nerve damage. She was supposed to see orthopedic hand, but states that her appointment was canceled because of bad weather and she is now scheduled to be seen on the fourth. She presents to the ER secondary to increasing left hand pain that is worsened over the past hour. She took her last dose of tramadol. [facility] Medical History GERD (gastroesophageal reflux disease) IUD (intrauterine device) in place Multiple sclerosis Seizures Transverse myelitis Home Medications amitriptyline 100 mg tablet 300 mg PO QHS sleep 04/02/18 [History Last Taken 01/29/20] meloxicam 15 mg tablet 15 mg PO DAILY PRN Pain 12/11/18 [History Last Taken 01/29/20] ondansetron 4 mg disintegrating tablet 4 mg PO Q8H PRN PRN Nausea ##10 01/21/19 [Rx Last Taken Unknown] divalproex 250 mg tablet,delayed release 500 mg PO BIDCM ##60 02/05/20 [Rx Last Taken Unknown] melatonin 3 mg tablet 3 mg PO QHS PRN PRN Insomnia ##30 02/05/20 [Rx Last Taken Unknown] gabapentin 100 mg capsule 200 mg PO TID 06/12/20 [History Last Taken Unknown] hydroxyzine pamoate 25 mg capsule 25 - 50 mg PO TID 09/11/20 [History Last Taken Unknown] promethazine 25 mg tablet 25 mg PO Q6H PRN PRN Nausea #10 TABLETS 06/22/21 [Rx Last Taken Unknown] cephalexin 500 mg capsule 500 mg PO TID #21 caps 03/01/22 [Rx Last Taken Unknown] ondansetron 4 mg disintegrating tablet 4 mg PO Q6H PRN nausea and vomiting #10 tabs 03/01/22 [Rx Last Taken Unknown] hydrocodone-acetaminophen 5-325mg 5mg-325mg 1 tab PO Q6H PRN pain 4 days #16 tabs 03/05/22 [Rx Last Taken Unknown] Allergy/AdvReac Type Severity Reaction Status Date / Time naproxen [From Naprosyn] Allergy Hives Verified 03/05/22 16:08 Surgical History Hx of appendectomy Social History Smoking Status: Never smoker substance use type: amphetamines ROS ROS ED Constitutional Constitutional ED: Denies chills or fever(s) Eyes Eyes: Denies change in vision or discharge from eye(s) ENT ENT ED: Denies discharge from eye(s), rhinorrhea or sore throat Cardiovascular Cardiovascular: Denies chest pain or palpitations Respiratory/Chest Respiratory/Chest: Denies cough or dyspnea Gastrointestinal Gastrointestinal: Reports nausea and vomiting; Denies abdominal pain Genitourinary Genitourinary ED: Denies difficulty urinating or dysuria Musculoskeletal Musculoskeletal: Reports extremity pain; Denies back pain Integumentary Denies Abrasions or rash Neurologic Neurologic: Reports paresthesias and weakness; Denies headache(s) Psychiatric Psychiatric: Denies anxiety or depression Allergic/Immunologic Allergic/Immunologic ED: Denies lip swelling or urticaria EXAM Physical Exam Const Vital Signs: 03/05/22 16:10 03/05/22 16:15 Temperature 98.8 F 98.8 F Temperature Source Temporal Temporal Pulse Rate 99 99 Respiratory Rate 17 17 Blood Pressure 142/94 H 142/94 H Blood Pressure Mean 110 110 Pulse Ox 100 100 Oxygen Delivery Method Room Air Room Air Positive well nourished and well developed General Appearance ED: well developed HEENT Reports normocephalic and head/scalp atraumatic Eyes PERRL and EOMs intact bilaterally Neck supple Chest Wall inspection of chest normal and palpation of chest normal Resp normal respiratory effort and clear to auscultation bilaterally Cardio regular rate and regular rhythm GI normal to inspection, nondistended, normoactive bowel sounds Palpation: soft Extremity Extremity Narrative: Left forearm laceration with sutures intact. No sign of infection. Mild edema noted to the left upper extremity. Patient able to wiggle all fingers with good strength. Reports decree sensation over the fourth and fifth fingers. This has been present since the time of her injury. Neuro oriented x3 Sensorium / Orientation: alert Motor Exam: strength 5/5 throughout Psych mental status grossly normal MDM MDM MDM Narrative Medical decision making narrative: Left forearm wound to be cleansed and antibiotic ointment placed. I have asked nursing staff to place a Raz wrap from her hands to her mid upper arm. This will provide light compression to help with fluid reabsorption. She states that she has been holding her left arm in a sling with the elbow bent greater than 90 degrees. I recommended elevating her arm but keeping her elbow straight so as venous blood flow was not hindered. I believe this is likely why she has had increased swelling. Patient does have a history of seizures so I will write her for [place] rather than tramadol for pain. She is to continue her antibiotic. Follow-up with orthopedic hand as scheduled. Discharge Plan Triage Chief Complaint: Wound ED Provider: Crystal Larsen Dx/Rx/DC Orders Clinical Impression: Visit for wound check Instructions: ED Wound Check (No Infection), ED Wound Care Prescriptions: New hydrocodone-acetaminophen 5-325 mg tablet 1 tab PO Q6H PRN (Reason: pain) 4 Days Qty: 16 0RF No Action amitriptyline 100 MG tablet 300 mg PO QHS meloxicam 15 MG tablet 15 mg PO DAILY PRN (Reason: Pain) ondansetron 4 MG tablet 4 mg PO Q8H PRN PRN (Reason: Nausea) Qty: 10 0RF divalproex 250 MG tablet 500 mg PO BIDCM Qty: 60 0RF melatonin 3 MG tablet 3 mg PO QHS PRN PRN (Reason: Insomnia) Qty: 30 0RF gabapentin 100 MG capsule 200 mg PO TID hydroxyzine pamoate 25 mg capsule 25 - 50 mg PO TID Label Comments: Take 1-2 capsules by mouth three times daily as needed for Anxiety. promethazine [promethazine] 25 MG tablet 25 mg PO Q6H PRN PRN (Reason: Nausea) Qty: 10 0RF ondansetron 4 mg tablet,disintegrating 4 mg PO Q6H PRN (Reason: nausea and vomiting) Qty: 10 0RF cephalexin 500 mg capsule 500 mg PO TID Qty: 21 0RF Primary Care Provider: Giancarlo Espinosa Referrals: Giancarlo Espinosa MD [Primary Care Provider] - Activity Restrictions/Additional Instructions: Follow-up with your hand surgeon on the fourth as scheduled. Disposition Disposition: Home, Self Care
[2022-03-05] MEDS: morphine 10 MG/ML Syringe IM (16:41)
[2022-03-05 16:53] VITALS: BP 120/77; PULSE 88; RESP 17; O2SAT 100
== END 2022-03-05 16:55 | disposition home or self-care (01) ==
PROVIDERS: Emergency Provider Emergency Medicine; PCP Family Medicine; Visit Provider Emergency Medicine
DX: Z51.89 Encounter for other specified aftercare (principal); S51.812A Laceration without foreign body of left forearm, initial encounter; Z79.899 Other long term (current) drug therapy; W19.XXXA Unspecified fall, initial encounter; Z97.5 Presence of (intrauterine) contraceptive device
CPT/HCPCS: 96372; 99284

== ENCOUNTER 2022-05-29 14:11 | Emergency (ER) | payer MEDICAID, SELFPAY ==
[2022-05-29 14:12] VITALS: BP 160/119; PULSE 113; RESP 18; TEMP 36.1; O2SAT 98; BMI 37.3
--- NOTE | 2022-05-29 14:21 | EX.ED.UPPERE ---
HPI History of Present Illness HPI Narrative: Patient presents with left elbow pain that began last night. Patient states she slipped and fell in the bathtub. Patient states she hit her elbow. Patient states she has a prior surgery on her left elbow that was done at the [facility]. Patient does not remember the name of her surgeon at the [facility]. Patient admits to some paresthesias over the fourth and fifth digits of her left hand. Patient denies any weakness. Patient states her pain is worse with any movement. Patient denies any other injuries. Chief Complaint: Upper Extremity Injury Informant: patient Occured/Mechanism Mechanism/Context: Yes fall Onset/Context/Timing Onset: Yesterday Context: Sudden Onset Timing: Continuous Quality of Pain: Stabbing Location: Left elbow Worsened by: Movement Relieved by: Rest Associated Symptoms Associated Symptoms: Positive for Parasthesia; Negative for Weakness or Loss of Funtion [facility] Medical History (Updated 05/29/22 @ 14:[address] Feim Iraheta, DO) GERD (gastroesophageal reflux disease) IUD (intrauterine device) in place Multiple sclerosis Seizures Transverse myelitis Home Medications amitriptyline 100 mg tablet 300 mg PO QHS sleep 04/02/18 [History Last Taken 01/29/20] meloxicam 15 mg tablet 15 mg PO DAILY PRN Pain 12/11/18 [History Last Taken 01/29/20] ondansetron 4 mg disintegrating tablet 4 mg PO Q8H PRN PRN Nausea ##10 01/21/19 [Rx Last Taken Unknown] divalproex 250 mg tablet,delayed release 500 mg PO BIDCM ##60 02/05/20 [Rx Last Taken Unknown] melatonin 3 mg tablet 3 mg PO QHS PRN PRN Insomnia ##30 02/05/20 [Rx Last Taken Unknown] gabapentin 100 mg capsule 200 mg PO TID 06/12/20 [History Last Taken Unknown] hydroxyzine pamoate 25 mg capsule 25 - 50 mg PO TID 09/11/20 [History Last Taken Unknown] promethazine 25 mg tablet 25 mg PO Q6H PRN PRN Nausea #10 TABLETS 06/22/21 [Rx Last Taken Unknown] cephalexin 500 mg capsule 500 mg PO TID #21 caps 03/01/22 [Rx Last Taken Unknown] ondansetron 4 mg disintegrating tablet 4 mg PO Q6H PRN nausea and vomiting #10 tabs 03/01/22 [Rx Last Taken Unknown] hydrocodone-acetaminophen 5-325mg 5mg-325mg 1 tab PO Q6H PRN pain 4 days #16 tabs 03/05/22 [Rx Last Taken Unknown] hydrocodone-acetaminophen 5-325mg 5mg-325mg 1 tab PO Q6H PRN PRN Pain 3 days #10 TABLETS 05/29/22 [Rx Last Taken Unknown] Allergy/AdvReac Type Severity Reaction Status Date / Time naproxen [From Naprosyn] Allergy Hives Verified 05/29/22 14:13 Surgical History (Updated 05/29/22 @ 14:[address] Femi Iraheta DO) Hx of appendectomy Hx of elbow surgery Hx of tubal ligation Social History Smoking Status: Never smoker substance use type: amphetamines ROS ROS ED Constitutional Constitutional ED: Denies chills or fever(s) Eyes Eyes: Denies blurry vision or change in vision ENT ENT ED: Denies rhinorrhea or sore throat Cardiovascular Cardiovascular: Denies chest pain or palpitations Respiratory/Chest Respiratory/Chest: Denies cough or dyspnea Gastrointestinal Gastrointestinal: Denies nausea or vomiting Genitourinary Genitourinary ED: Denies dysuria or hematuria Musculoskeletal Musculoskeletal: Denies back pain or neck pain Integumentary Denies abscess or rash Neurologic Neurologic: Reports paresthesias LUE; Denies headache(s) or weakness Allergic/Immunologic Allergic/Immunologic ED: Denies mouth swelling or urticaria EXAM Physical Exam Const Vital Signs: 05/29/22 14:12 Temperature 97 F L Temperature Source Temporal Pulse Rate 113 H Respiratory Rate 18 Blood Pressure 160/119 H Blood Pressure Mean 132 Pulse Ox 98 Oxygen Delivery Method Room Air Positive well nourished, well developed and obese General Appearance ED: well developed and NAD Nutritional Appearance: obese HEENT Reports moist mucous membranes Neck full ROM and supple Extremity Extremity Narrative: There is tenderness over the medial aspect of the left elbow. There is no deformity noted. There is no ecchymosis. Range of motion was limited in all motions of the left elbow secondary to pain. Radial pulses are equal bilaterally. Sensation was intact to light touch in the radial and median areas. Patient states her sensation over the ulnar aspect of her left hand was diminished to light touch. Strength is 5/5 in the radial, median, and ulnar areas. General Extremety ED: Negative for edema General Extremity: Negative for edema Neuro oriented x3, CN's II-XII intact bilaterally, moves all extremities and no focal motor deficits Sensorium / Orientation: alert Motor Exam: strength 5/5 throughout Psych mental status grossly normal MDM MDM MDM Narrative Medical decision making narrative: Differential diagnosis includes contusion, strain, and fracture. X-rays of the left elbow will be obtained to assess for fracture and joint effusion. Radiography Diagnostic Testing: X-rays of the left elbow were obtained. There are 3 views. On my independent interpretation, there is no acute fracture. There is no joint effusion. There is no loose body noted. Radiologist also interpreted the x-rays and agrees. Treatment and Re-Evaluation Narrative: Patient was given a dose of [employer] here. Patient was instructed to use ice to the area. Patient was given a prescription for a short course of [employer]. Patient was instructed to follow-up with her surgeon at the [facility] in 3 to 5 days. Patient was instructed to return if worse in any way. Patient understood and was agreeable with the plan. All questions were answered. Discharge Plan Triage Chief Complaint: Upper Extremity Injury ED Provider: Femi Iraheta Dx/Rx/DC Orders Clinical Impression: Sprain of left elbow, Neurapraxia of left ulnar nerve Instructions: ED Contusion, Upper Extremity Prescriptions: New hydrocodone-acetaminophen [hydrocodone-acetaminophen] 5-325 mg tablet 1 tab PO Q6H PRN PRN (Reason: Pain) 3 Days Qty: 10 0RF No Action amitriptyline 100 MG tablet 300 mg PO QHS meloxicam 15 MG tablet 15 mg PO DAILY PRN (Reason: Pain) ondansetron 4 MG tablet 4 mg PO Q8H PRN PRN (Reason: Nausea) Qty: 10 0RF divalproex 250 MG tablet 500 mg PO BIDCM Qty: 60 0RF melatonin 3 MG tablet 3 mg PO QHS PRN PRN (Reason: Insomnia) Qty: 30 0RF gabapentin 100 MG capsule 200 mg PO TID hydroxyzine pamoate 25 mg capsule 25 - 50 mg PO TID Label Comments: Take 1-2 capsules by mouth three times daily as needed for Anxiety. promethazine [promethazine] 25 MG tablet 25 mg PO Q6H PRN PRN (Reason: Nausea) Qty: 10 0RF ondansetron 4 mg tablet,disintegrating 4 mg PO Q6H PRN (Reason: nausea and vomiting) Qty: 10 0RF cephalexin 500 mg capsule 500 mg PO TID Qty: 21 0RF hydrocodone-acetaminophen 5-325 mg tablet 1 tab PO Q6H PRN (Reason: pain) 4 Days Qty: 16 0RF Primary Care Provider: Giancarlo Espinosa Referrals: Giancarlo Espinosa MD [Primary Care Provider] - 3-5 Days Rosmery David MD [Non-Staff] - 3-5 Days Disposition Disposition: Home, Self Care
[2022-05-29] MEDS: HYDROcodone Bitartrate/Apap 5/325 Tablet PO (14:38)
--- NOTE | 2022-05-29 14:40 | RAD_ITS ---
INDICATION: Injury/Pain EXAMINATION/TECHNIQUE: X-RAY - LEFT XR Elbow Min 3 Views COMPARISON: None. FINDINGS: SOFT TISSUES: No soft tissue swelling or gas. No radiopaque foreign body. BONES/JOINTS: There is no displacement of the anterior or posterior fat pads. No acute fracture or subluxation. Normal alignment. Preservation of the joint space. No sclerotic or destructive changes observed. RAD/Elbow min 3 Views IMPRESSION: No acute bony injury. Electronically Signed: Shemar Holley DO at 16:04 EDT ,
== END 2022-05-29 15:02 | disposition home or self-care (01) ==
PROVIDERS: Emergency Provider Emergency Medicine; PCP Family Medicine; Visit Provider Emergency Medicine
DX: S53.402A Unspecified sprain of left elbow, initial encounter (principal); S54.02XA Injury of ulnar nerve at forearm level, left arm, initial encounter; E66.9 Obesity, unspecified; W18.2XXA Fall in (into) shower or empty bathtub, initial encounter; Z97.5 Presence of (intrauterine) contraceptive device
CPT/HCPCS: 73080; 99283

== ENCOUNTER 2022-06-03 15:10 | Emergency (ER) | payer MEDICAID, SELFPAY ==
[2022-06-03 15:11] VITALS: BP 124/107; PULSE 94; RESP 16; TEMP 36.4; O2SAT 98; BMI 37.3
--- NOTE | 2022-06-03 15:18 | EKG12_ITS ---
Test Reason : CP Blood Pressure : / mmHG Vent. Rate : 102 BPM Atrial Rate : 102 BPM P-R Int : 216 ms QRS Dur : 088 ms QT Int : 336 ms P-R-T Axes : 046 063 036 degrees QTc Int : 437 ms Sinus tachycardia with 1st degree A-V block Possible Left atrial enlargement Nonspecific T wave abnormality Abnormal ECG Confirmed by PHYLLIS COFFMAN, GURDEEP ([id number]), order editor EILEEN HERNANDES ([id number]) on 06/04/2022 10:52:53 AM Referred By: MIREYA Confirmed By:GURDEEP FERGUSON MD
--- NOTE | 2022-06-03 15:52 | ED.RN ---
this rn to room. pt not in the room nor in bathrooms. pt gown on bed. pt lwbs
== END 2022-06-03 15:46 | disposition left against medical advice (07) ==
PROVIDERS: Emergency Provider Student in an Organized Health Care Education/Training Program; PCP Family Medicine; Visit Provider Student in an Organized Health Care Education/Training Program
DX: R11.2 Nausea with vomiting, unspecified (principal); Z53.21 Procedure and treatment not carried out due to patient leaving prior to being seen by health care provider
CPT/HCPCS: 93005; 99281

== ENCOUNTER 2022-06-24 18:14 | Emergency (ER) | payer MEDICAID, SELFPAY ==
[2022-06-24 18:14] VITALS: BP 108/96; PULSE 83; RESP 15; TEMP 36.2; O2SAT 96; BMI 39.4
[2022-06-24] MEDS: Ondansetron 4 MG/2 ML Vial IV ×2 (19:28→21:37)
[2022-06-24] MEDS: 0.9% Normal Saline 1,000 ML 1000 ML IV (19:28)
--- NOTE | 2022-06-24 19:33 | EX.ED.DYSGE1 ---
HPI <Dr. Farhad Lopez MD - Last Filed: 06/25/22 00:17> History of Present Illness Chief Complaint: Nausea/Vomiting Informant: patient Narrative Narrative: Patient presents with nausea vomiting and diarrhea about 3 days. She states she did eat some catered food but thinks that everybody else who ate it is fine. But after that she has had nausea vomiting diarrhea. No blood seen. She states she is still urinating but its less amount and its darker. But it does not burn or hurt. She has not had fevers or chills. She has just diffuse abdominal aching. But no real localized pain. No chest pain or trouble breathing. She has not had fevers or chills. No muscle aches. No nasal congestion. She has had some problems with nausea in the past but this is not a recurrent/chronic issue. [facility] <Dr. Farhad Lopez MD - Last Filed: 06/25/22 00:17> [facility] Medical History GERD (gastroesophageal reflux disease) IUD (intrauterine device) in place Multiple sclerosis Seizures Transverse myelitis Home Medications amitriptyline 100 mg tablet 300 mg PO QHS sleep 04/02/18 [History Last Taken 01/29/20] meloxicam 15 mg tablet 15 mg PO DAILY PRN Pain 12/11/18 [History Last Taken 01/29/20] ondansetron 4 mg disintegrating tablet 4 mg PO Q8H PRN PRN Nausea ##10 01/21/19 [Rx Last Taken Unknown] divalproex 250 mg tablet,delayed release 500 mg PO BIDCM ##60 02/05/20 [Rx Last Taken Unknown] melatonin 3 mg tablet 3 mg PO QHS PRN PRN Insomnia ##30 02/05/20 [Rx Last Taken Unknown] gabapentin 100 mg capsule 200 mg PO TID 06/12/20 [History Last Taken Unknown] hydroxyzine pamoate 25 mg capsule 25 - 50 mg PO TID 09/11/20 [History Last Taken Unknown] promethazine 25 mg tablet 25 mg PO Q6H PRN PRN Nausea #10 TABLETS 06/22/21 [Rx Last Taken Unknown] cephalexin 500 mg capsule 500 mg PO TID #21 caps 03/01/22 [Rx Last Taken Unknown] ondansetron 4 mg disintegrating tablet 4 mg PO Q6H PRN nausea and vomiting #10 tabs 03/01/22 [Rx Last Taken Unknown] hydrocodone-acetaminophen 5-325mg 5mg-325mg 1 tab PO Q6H PRN pain 4 days #16 tabs 03/05/22 [Rx Last Taken Unknown] hydrocodone-acetaminophen 5-325mg 5mg-325mg 1 tab PO Q6H PRN PRN Pain 3 days #10 TABLETS 05/29/22 [Rx Last Taken Unknown] diphenoxylate-atropine 2.5 mg-0.025 mg tablet (Lomotil) 1 tab PO 4X/DAY PRN PRN diarrhea 5 days #20 tabs 06/25/22 [Rx Last Taken Unknown] promethazine 25 mg tablet 25 mg PO TID PRN nausea and vomiting 7 days #21 tabs 06/25/22 [Rx Last Taken Unknown] Allergy/AdvReac Type Severity Reaction Status Date / Time naproxen [From Naprosyn] Allergy Hives Verified 05/29/22 14:13 Surgical History Hx of appendectomy Hx of elbow surgery Hx of tubal ligation Social History Smoking Status: Never smoker substance use type: amphetamines ROS <Dr. Farhad Lopez MD - Last Filed: 06/25/22 00:17> ROS ED Constitutional Constitutional ED: Denies chills, fever(s) or subjective ENT ENT ED: Denies rhinorrhea or sore throat Cardiovascular Cardiovascular: Denies chest pain or palpitations Respiratory/Chest Respiratory/Chest: Denies cough or dyspnea Gastrointestinal Gastrointestinal: Reports abdominal pain, diarrhea, nausea and vomiting; Denies constipation or melena Genitourinary Genitourinary ED: Reports other Details: AndUrine is darker less frequent than normal. ; Denies dysuria, hematuria or urinary frequency Musculoskeletal Musculoskeletal: Denies back pain Integumentary Denies rash Neurologic Neurologic: Reports headache(s) Endocrine Endocrinology: Denies polydipsia or polyuria Hematologic/Lymphatic Hematologic/Lymphatic: Denies lymphadenopathy Allergic/Immunologic Allergic/Immunologic ED: Denies urticaria EXAM <Dr. Farhad Lopez MD - Last Filed: 06/25/22 00:17> Physical Exam Narrative Exam Narrative: Patient is awake alert. She looks like she does not feel well but is certainly not toxic. She is in no acute distress. She carries on normal conversation. HEENT does show some dry mucous membranes. No intraoral petechiae or erythema. Eyes show no icterus Neck is supple without lymphadenopathy stridor or JVD. Lungs are completely clear bilaterally. No pain with a deep breath. Saturations are normal at 96% on room air. Heart is regular. Is not notably tachycardic. Has a rate about 85. I do not hear murmur gallop or rub. No muffled tones. Abdomen is soft. Bowel sounds are normal to slightly increased. She states she is sore everywhere but no notable objective tenderness in any specific area. I do not feel any mass. I do not feel any hernia. shows no suprapubic or CVA tenderness Extremities show no rash or signs of trauma. Skin is normal not diaphoretic. No notable pallor. Const Vital Signs: 06/24/22 18:14 06/24/22 20:35 06/24/22 23:14 Temperature 97.1 F L Temperature Source Temporal Pulse Rate 83 83 78 Respiratory Rate 15 16 16 Blood Pressure 108/96 H 130/74 H 120/84 H Blood Pressure Mean 100 92 96 Pulse Ox 96 97 97 Oxygen Delivery Method Room Air Room Air Room Air <Dr. Luis Eduardo Sanchez DO - Last Filed: 06/25/22 00:50> Physical Exam Const Vital Signs: 06/24/22 18:14 06/24/22 20:35 06/24/22 23:14 Temperature 97.1 F L Temperature Source Temporal Pulse Rate 83 83 78 Respiratory Rate 15 16 16 Blood Pressure 108/96 H 130/74 H 120/84 H Blood Pressure Mean 100 92 96 Pulse Ox 96 97 97 Oxygen Delivery Method Room Air Room Air Room Air MDM <Dr. Farhad Lopez MD - Last Filed: 06/25/22 00:17> [facility] Narrative Medical decision making narrative: Patient's recheck. Second dose of meds really helped her nausea. But she feels like her abdomen is getting firm. She still having pain. She does have a history of having ileus although never had an obstruction. She has had appendix and tubal ligation but no other surgeries. She has some nonfocal discomfort mostly lower abdomen. With her still having symptoms we will get a scan of her abdomen at this time. She is overall improved and looks much better. CBC shows normal white count hemoglobin and platelets. Electrolytes showed minimal decrease of sodium potassium. I do not think these need to be replaced here. No sign of dehydration. Liver function test show minimal elevations of AST and ALT but normal alkaline phosphatase bilirubin. She has had these elevations in the past. Lipase is normal. is negative. My independent interpretation of the patient's CT of the abdomen shows a very enlarged uterus. There is an IUD present. However, when I looked back on studies from 1 and 2 years ago this was there at the time. It does look like it is gotten progressively larger. But I do not think this is the likely source of her nausea vomiting and diarrhea. Final reading of the CT is pending. I talked with the patient about this enlarged uterus. She states she used to have a lot of vaginal bleeding. But about 4 years ago an IUD was placed and this seemed to stop it. She has no bleeding or no discharge. She does not usually have pelvic pain. She states she has some cramping throughout her abdomen but is not located just in the middle. We both agree that I do not think that his uterus being enlarged is likely the source of her nausea vomiting and diarrhea. We are still pending the final CT. Even if she is able to go home, I explained that she needs to follow-up with a undercover cop for these findings. Lab Data Attestation: I reviewed the patient's lab results. Labs: Laboratory Results - last 24 hr 06/24/22 06/24/22 06/24/22 19:30 19:30 19:30 WBC 5.8 RBC 4.26 Hgb 13.8 Hct 41.2 MCV 96.7 MCH 32.4 H MCHC 33.5 RDW Std Deviation 45.1 H RDW Coeff of Walt 12.9 Plt Count 302 MPV 9.2 Immature Gran % (Auto) 0.500 Neut % (Auto) 73.5 H Lymph % (Auto) 16.9 L [place] % (Auto) 8.6 Eos % (Auto) 0.2 Baso % (Auto) 0.3 Absolute Neuts (auto) 4.3 Absolute Lymphs (auto) 0.98 Nucleated RBC % 0 Sodium 135 L Potassium 3.4 L Chloride 102 Carbon Dioxide 25.0 Anion Gap 8 BUN 14 Creatinine 0.73 Estim Creat Clear Calc 79.40 Est GFR (MDRD) Af Amer 112 Est GFR (MDRD) Non-Af 92 BUN/Creatinine Ratio 19.1 Glucose 103 Calcium 9.5 Total Bilirubin 0.50 AST 90 H ALT 95 H Alkaline Phosphatase 108 Total Protein 8.1 Albumin 3.8 Globulin 4.3 H Albumin/Globulin Ratio 0.9 Lipase 27 Serum , Qual NEGATIVE Urine Color Urine Clarity Urine pH Ur Specific [place] Urine Protein Urine Glucose (UA) Urine Ketones Urine Occult Blood Urine Nitrite Urine Bilirubin Urine Urobilinogen Ur Leukocyte Esterase Urine RBC Urine WBC Ur Squamous Epith Cells Urine Bacteria Urine Mucus 06/24/22 20:55 WBC RBC Hgb Hct MCV MCH MCHC RDW Std Deviation RDW Coeff of [place] Plt Count MPV Immature Gran % (Auto) Neut % (Auto) Lymph % (Auto) [place] % (Auto) Eos % (Auto) Baso % (Auto) Absolute Neuts (auto) Absolute Lymphs (auto) Nucleated RBC % Sodium Potassium Chloride Carbon Dioxide Anion Gap BUN Creatinine Estim Creat Clear Calc Est GFR (MDRD) Af Amer Est GFR (MDRD) Non-Af BUN/Creatinine Ratio Glucose Calcium Total Bilirubin AST ALT Alkaline Phosphatase Total Protein Albumin Globulin Albumin/Globulin Ratio Lipase Serum , Qual Urine Color Yellow Urine Clarity Clear Urine pH 7.0 Ur Specific [place] 1.010 Urine Protein 15 H Urine Glucose (UA) Normal Urine Ketones 50 H Urine Occult Blood Negative Urine Nitrite Negative Urine Bilirubin Negative Urine Urobilinogen 1 H Ur Leukocyte Esterase Negative Urine RBC 0 SEEN Urine WBC 0 SEEN Ur Squamous Epith Cells 0-5 SEEN Urine Bacteria RARE Urine Mucus RARE Radiography Diagnostic Testing: Clinical Impression(s) from Imaging Studies Abdomen/Pelvis CT 06/24/22 23:11 IMPRESSION: 1. Large intramural leiomyoma measuring 10 x 8 x 8 cm in the anterior body and fundus of the uterus. Previously it measured 7 x 8 x 6.5 cm. 2. Single tiny nonobstructing renal calculi bilaterally. 3. IUD in good position in the endometrial cavity. 4. No acute abdominal pelvic abnormality. Electronically Signed: Endy Montgomery MD at 0:29 EDT , <Dr. Luis Eduardo Sanchez, DO - Last Filed: 06/25/22 00:50> MDM History & Record Review Discussion w/independent historian: Patient Lab Data Attestation: I reviewed the patient's lab results. Labs: Laboratory Results - last 24 hr 06/24/22 06/24/22 06/24/22 19:30 19:30 19:30 WBC 5.8 RBC 4.26 Hgb 13.8 Hct 41.2 MCV 96.7 MCH 32.4 H MCHC 33.5 RDW Std Deviation 45.1 H RDW Coeff of Walt 12.9 Plt Count 302 MPV 9.2 Immature Gran % (Auto) 0.500 Neut % (Auto) 73.5 H Lymph % (Auto) 16.9 L [place] % (Auto) 8.6 Eos % (Auto) 0.2 Baso % (Auto) 0.3 Absolute Neuts (auto) 4.3 Absolute Lymphs (auto) 0.98 Nucleated RBC % 0 Sodium 135 L Potassium 3.4 L Chloride 102 Carbon Dioxide 25.0 Anion Gap 8 BUN 14 Creatinine 0.73 Estim Creat Clear Calc 79.40 Est GFR (MDRD) Af Amer 112 Est GFR (MDRD) Non-Af 92 BUN/Creatinine Ratio 19.1 Glucose 103 Calcium 9.5 Total Bilirubin 0.50 AST 90 H ALT 95 H Alkaline Phosphatase 108 Total Protein 8.1 Albumin 3.8 Globulin 4.3 H Albumin/Globulin Ratio 0.9 Lipase 27 Serum , Qual NEGATIVE Urine Color Urine Clarity Urine pH Ur Specific [place] Urine Protein Urine Glucose (UA) Urine Ketones Urine Occult Blood Urine Nitrite Urine Bilirubin Urine Urobilinogen Ur Leukocyte Esterase Urine RBC Urine WBC Ur Squamous Epith Cells Urine Bacteria Urine Mucus 06/24/22 20:55 WBC RBC Hgb Hct MCV MCH MCHC RDW Std Deviation RDW Coeff of [place] Plt Count MPV Immature Gran % (Auto) Neut % (Auto) Lymph % (Auto) [place] % (Auto) Eos % (Auto) Baso % (Auto) Absolute Neuts (auto) Absolute Lymphs (auto) Nucleated RBC % Sodium Potassium Chloride Carbon Dioxide Anion Gap BUN Creatinine Estim Creat Clear Calc Est GFR (MDRD) Af Amer Est GFR (MDRD) Non-Af BUN/Creatinine Ratio Glucose Calcium Total Bilirubin AST ALT Alkaline Phosphatase Total Protein Albumin Globulin Albumin/Globulin Ratio Lipase Serum , Qual Urine Color Yellow Urine Clarity Clear Urine pH 7.0 Ur Specific [place] 1.010 Urine Protein 15 H Urine Glucose (UA) Normal Urine Ketones 50 H Urine Occult Blood Negative Urine Nitrite Negative Urine Bilirubin Negative Urine Urobilinogen 1 H Ur Leukocyte Esterase Negative Urine RBC 0 SEEN Urine WBC 0 SEEN Ur Squamous Epith Cells 0-5 SEEN Urine Bacteria RARE Urine Mucus RARE Radiography Diagnostic Testing: Clinical Impression(s) from Imaging Studies Abdomen/Pelvis CT 06/24/22 23:11 IMPRESSION: 1. Large intramural leiomyoma measuring 10 x 8 x 8 cm in the anterior body and fundus of the uterus. Previously it measured 7 x 8 x 6.5 cm. 2. Single tiny nonobstructing renal calculi bilaterally. 3. IUD in good position in the endometrial cavity. 4. No acute abdominal pelvic abnormality. Electronically Signed: Endy Montgomery MD at 0:29 EDT , Treatment and Re-Evaluation :: The patient was signed out to me pending results of her CT scan of the abdomen and pelvis. This showed a large leiomyoma that is 10 x 8 x 8 cm in size. It was compared to previous CAT scan where it was 7 x 8 x 6.5 cm in size. However there is no signs of bowel obstruction intestinal infection or inflammatory change. Therefore this time as patient does not have acute kidney injury or severe electrolyte abnormality there is no signs of overt intestinal infection or obstruction there is no need for admission to the hospital. She replaced on symptomatic medications for home as her work-up and physical exam indicates she most likely has gastroenteritis. Based on the large nature of her leiomyoma she will be referred to [facility] to discuss need for surgical removal. Discharge Plan Triage Chief Complaint: Nausea/Vomiting ED Provider: Farhad Lopez Dx/Rx/DC Orders Clinical Impression: Abdominal pain, Nausea vomiting and diarrhea, Leiomyoma of uterus Instructions: ED Diet Vomiting Diarrhea, ED Gastroenteritis, Viral (Adult) Prescriptions: New promethazine 25 mg tablet 25 mg PO TID PRN (Reason: nausea and vomiting) 7 Days Qty: 21 0RF diphenoxylate-atropine [Lomotil] 2.5-0.025 mg tablet 1 tab PO 4X/DAY PRN PRN (Reason: diarrhea) 5 Days Qty: 20 0RF No Action amitriptyline 100 MG tablet 300 mg PO QHS meloxicam 15 MG tablet 15 mg PO DAILY PRN (Reason: Pain) ondansetron 4 MG tablet 4 mg PO Q8H PRN PRN (Reason: Nausea) Qty: 10 0RF divalproex 250 MG tablet 500 mg PO BIDCM Qty: 60 0RF melatonin 3 MG tablet 3 mg PO QHS PRN PRN (Reason: Insomnia) Qty: 30 0RF gabapentin 100 MG capsule 200 mg PO TID hydroxyzine pamoate 25 mg capsule 25 - 50 mg PO TID Label Comments: Take 1-2 capsules by mouth three times daily as needed for Anxiety. promethazine [promethazine] 25 MG tablet 25 mg PO Q6H PRN PRN (Reason: Nausea) Qty: 10 0RF ondansetron 4 mg tablet,disintegrating 4 mg PO Q6H PRN (Reason: nausea and vomiting) Qty: 10 0RF cephalexin 500 mg capsule 500 mg PO TID Qty: 21 0RF hydrocodone-acetaminophen 5-325 mg tablet 1 tab PO Q6H PRN (Reason: pain) 4 Days Qty: 16 0RF hydrocodone-acetaminophen [hydrocodone-acetaminophen] 5-325 mg tablet 1 tab PO Q6H PRN PRN (Reason: Pain) 3 Days Qty: 10 0RF Primary Care Provider: Giancarlo Espinosa Referrals: Giancarlo Espinosa MD [Primary Care Provider] - 1-2 Days if not improving Erna Connolly MD [Med Staff - Active Staff] - As soon as possible Activity Restrictions/Additional Instructions: Follow-up with your undercover cop or referral as above as soon as possible. Your history and exam indicate you have a viral stomach infection which will last 3 to 7 days on average. Take the medication as directed to help control your symptoms and return to the ER should you have any further concerns. Disposition Disposition: Home, Self Care
[2022-06-24 19:39] LABS: Absolute Lymphocyte Count 0.98 X10^3/uL (0.83-4.51); Absolute Neutrophil Count 4.3 X10^3/uL (2.0-7.7); Basophil# 0.02 X10^3/uL; Basophil% 0.3 % (0-1); Eosinophil# 0.01 X10^3/uL; Eosinophils% 0.2 % (0-5); Hematocrit 41.2 % (37-47); Hemoglobin 13.8 g/dL (12.0-15.0); Lymphocyte # 0.98 X10^3/ul (0.83-4.51); Lymphocyte % 16.9 % (19-41); Mean Corp Hgb Conc 33.5 g/dL (32-36); Mean Corpuscular Hgb 32.4 pg (27.0-32.0); Mean Corpuscular Volume 96.7 fL (81-99); Mean Platelet Vol. 9.2 fl (6.2-12.0); Monocyte% 8.6 % (0-10); NRBC Flagged by Analyzer 0 % (0-5); Neutrophil # 4.27 X10^3/uL (2.7-7.7); Neutrophil % 73.5 % (47-70); Platelet Count 302 K/mm3 (150-450); RBC Distribution Width CV 12.9 % (11.6-14.6); RBC Distribution Width SD 45.1 fl (35.1-43.9); Red Blood Count 4.26 M/mm3 (4.2-5.4); White Blood Count 5.8 K/mm3 (4.4-11.0)
[2022-06-24 19:58] LABS: ALB/GLOB Ratio 0.9 RATIO (0.9-2.4); AST(SGOT) 90 U/L (15-37); Alanine Aminotransfer ALT/SGPT 95 U/L (13-56); Albumin, Serum 3.8 g/dL (3.2-5.0); Alkaline Phosphatase 108 U/L (45-117); Anion Gap 8 (5-15); BUN 14 mg/dL (7-18); BUN/Creat Ratio 19.1 RATIO (10-20); Calcium,Total 9.5 mg/dL (8.5-10.1); Chloride 102 mmol/L (98-107); Creatinine, Serum 0.73 mg/dL (0.55-1.02); EST Glomerular Filtration Rate 92 mL/min (>60); Est Glom Filt Rate - Afr Amer 112 mL/min (>60); Globulin 4.3 g/dL (2.2-4.2); Glucose 103 mg/dL (74-106); Lipase 27 U/L (13-75); Potassium 3.4 mmol/L (3.5-5.1); Protein, Total 8.1 g/dL (6.4-8.2); Sodium Level 135 mmol/L (136-145)
[2022-06-24 19:59] LABS: Internal QC Validated? YES +Cl - CLEAR BKGD; Pregnancy, Serum, hCG Quali. NEGATIVE Negative
[2022-06-24 20:35] VITALS: BP 130/74; PULSE 83; RESP 16; O2SAT 97
[2022-06-24 20:59] LABS: Red Blood Cells-Urine 0 SEEN /hpf (0-5); White Blood Cells 0 SEEN /hpf (0-5)
[2022-06-24 21:09] LABS: Color, Urine Yellow (Yellow); Glucose, Dipstick Normal (Normal); Ketone-Dipstick 50 mg/dl (Negative); Leukocyte Esterase-Dipstick Negative /ul (Negative); Nitrite-Dipstick Negative (Negative); Occult Blood-Urine Negative /ul (Negative); Protein-Dipstick 15 mg/dl (Negative); Urine Bilirubin Dipstick Negative (Negative); Urine Clarity Clear (Clear); Urine Urobilinogen 1 mg/dl (Normal)
[2022-06-24 21:34] LABS: Bacteria RARE /hpf (None Seen); Mucous, Urine RARE /hpf (<or=2+); Squamous Epithelial Cells - UA 0-5 SEEN /hpf (5-10)
--- NOTE | 2022-06-24 23:11 | CT_ITS ---
EXAM: CT ABDOMEN AND PELVIS WITHOUT INTRAVENOUS CONTRAST CLINICAL INDICATION: pain, nausea vomiting TECHNIQUE: Helically acquired images were obtained of the abdomen and pelvis without intravenous contrast. This CT exam was performed using one or more of the following dose reduction techniques: automated exposure control, adjustment of the mA and/or kV according to patient size, and/or use of iterative reconstruction technique. This report was created using [employer] report generation technology. RADIATION DOSE: CTDIvol = 19.84 mGy, DLP = 1113.50 mGy-cm. COMPARISON: 06/22/2021. FINDINGS: LOWER THORAX: Unremarkable. Lung bases are clear. No cardiomegaly. No significant pericardial effusion. ABDOMEN: LIVER: Unremarkable. Homogeneous. GALLBLADDER AND BILE DUCTS: Unremarkable. No calcified gallstones. No gallbladder distention or wall edema. No intra- or extrahepatic biliary ductal dilation. PANCREAS: Unremarkable. No focal cystic mass. SPLEEN: Unremarkable. Normal size without focal cystic or solid mass. ADRENALS: Unremarkable. No nodules. KIDNEYS AND URETERS: Single tiny nonobstructing renal calculi bilaterally. Normal renal size and position. STOMACH AND BOWEL: Unremarkable. No stomach or bowel distention. No focal inflammatory change. PELVIS: APPENDIX: No evidence of acute appendicitis. BLADDER: Unremarkable. REPRODUCTIVE: Large intramural leiomyoma measuring 10 x 8 x 8 cm in the anterior body and fundus of the uterus. Previously it measured 7 x 8 x 6.5 cm. IUD in good position in the endometrial cavity. ABDOMEN and PELVIS: INTRAPERITONEAL SPACE: Unremarkable. No ascites or other fluid collection. No free air. BONES/JOINTS: Unremarkable. No suspicious lytic or blastic abnormality. SOFT TISSUES: Unremarkable. No discrete abdominal or pelvic wall hernia. VASCULATURE: Unremarkable. Abdominal aorta is non-dilated. LYMPH NODES: Unremarkable. No enlarged lymph nodes. CT/Abdomen/Pelvis without Cont IMPRESSION: 1. Large intramural leiomyoma measuring 10 x 8 x 8 cm in the anterior body and fundus of the uterus. Previously it measured 7 x 8 x 6.5 cm. 2. Single tiny nonobstructing renal calculi bilaterally. 3. IUD in good position in the endometrial cavity. 4. No acute abdominal pelvic abnormality. Electronically Signed: Endy Montgomery MD at 0:29 EDT ,
[2022-06-24 23:14] VITALS: BP 120/84; PULSE 78; RESP 16; O2SAT 97
[2022-06-25] MEDS: Morphine 4 MG/ML Syringe IV (00:01)
== END 2022-06-25 00:56 | disposition home or self-care (01) ==
PROVIDERS: Emergency Provider Emergency Medicine; PCP Family Medicine; Visit Provider Emergency Medicine
DX: R10.9 Unspecified abdominal pain (principal); G35 Multiple sclerosis; R11.2 Nausea with vomiting, unspecified; R19.7 Diarrhea, unspecified; D25.9 Leiomyoma of uterus, unspecified
CPT/HCPCS: 74176; 80053; 81001; 83690; 84703; 85025; 96361; 96374; 96375; 96376; 99282; A4216; J2405

== ENCOUNTER 2023-05-06 18:18 | Emergency (ER) | payer MEDICAID, SELFPAY ==
[2023-05-06 18:19] VITALS: BP 119/101; PULSE 92; RESP 18; TEMP 36.3; O2SAT 95; BMI 26.6
[2023-05-06 21:06] VITALS: BP 121/71; PULSE 85; RESP 18; TEMP 36.6; O2SAT 96
--- NOTE | 2023-05-06 21:22 | EX.ED.GENINJ ---
HPI <MICKEY Bro - Last Filed: 05/06/23 21:57> History of Present Illness Chief Complaint: Laceration Narrative Narrative: Patient presenting today with a laceration to her left forehead that she got this evening. She reports that she was cleaning her bathroom when she slipped and hit her head on the sink. She is not on any blood thinners, there was no loss of consciousness. She is unsure when her last tetanus was updated. She reports slight pain to her forehead but denies any nausea, vomiting, and neck pain. PFSH <MICKEY Bro - Last Filed: 05/06/23 21:57> [facility], [facility] Medical History GERD (gastroesophageal reflux disease) IUD (intrauterine device) in place Multiple sclerosis Seizures Transverse myelitis Home Medications amitriptyline 100 mg tablet 300 mg PO QHS sleep 04/02/18 [History Last Taken 01/29/20] ondansetron 4 mg disintegrating tablet 4 mg PO Q8H PRN PRN Nausea ##10 01/21/19 [Rx Last Taken Unknown] divalproex 250 mg tablet,delayed release 500 mg (2 x 250 mg) PO BIDCM ##60 02/05/20 [Rx Last Taken Unknown] melatonin 3 mg tablet 3 mg PO QHS PRN PRN Insomnia ##30 02/05/20 [Rx Last Taken Unknown] gabapentin 100 mg capsule 200 mg PO TID 06/12/20 [History Last Taken Unknown] hydroxyzine pamoate 25 mg capsule 25 - 50 mg PO TID 09/11/20 [History Last Taken Unknown] promethazine 25 mg tablet 25 mg PO Q6H PRN PRN Nausea #10 TABLETS 06/22/21 [Rx Last Taken Unknown] diphenoxylate-atropine 2.5 mg-0.025 mg tablet (Lomotil) 1 tab PO 4X/DAY PRN PRN diarrhea 5 days #20 tabs 06/25/22 [Rx Last Taken Unknown] ferrous sulfate 325 mg (65 mg iron) tablet (FeroSul) 325 mg PO BID 05/06/23 [History Last Taken Unknown] Allergy/AdvReac Type Severity Reaction Status Date / Time naproxen [From Naprosyn] Allergy Hives Verified 05/06/23 18:21 Surgical History Hx of appendectomy Hx of elbow surgery Hx of tubal ligation Social History Smoking Status: Never smoker substance use type: amphetamines ROS <MICKEY Bro - Last Filed: 05/06/23 21:57> ROS ED Constitutional Constitutional ED: Denies chills or fever(s) Cardiovascular Cardiovascular: Denies chest pain Respiratory/Chest Respiratory/Chest: Denies cough or dyspnea Gastrointestinal Gastrointestinal: Denies abdominal pain, nausea or vomiting Musculoskeletal Musculoskeletal: Denies arthralgias, myalgias or neck pain Integumentary Reports laceration Neurologic Neurologic: Denies weakness EXAM <MICKEY Bro - Last Filed: 05/06/23 21:57> Physical Exam Const Vital Signs: 05/06/23 18:19 05/06/23 21:06 05/06/23 21:51 Temperature 97.4 F L 98 F 98.7 F Temperature Source Temporal Temporal Pulse Rate 92 85 88 Respiratory Rate 18 18 16 Blood Pressure 119/101 H 121/71 H 107/75 Blood Pressure Mean 107 87 85 Pulse Ox 95 96 97 Oxygen Delivery Method Room Air Room Air Positive well nourished, well developed and no apparent distress General Appearance ED: well developed HEENT Reports normocephalic and head/scalp atraumatic HEENT Narrative: 3 cm linear full-thickness laceration to the left forehead. Mouth ED: Yes moist mucous membranes normal Eyes PERRL and EOMs intact bilaterally Neck full ROM and supple Chest Wall inspection of chest normal Resp normal respiratory effort and clear to auscultation bilaterally Cardio regular rate and regular rhythm GI soft to palpation, non-tender, non-distended and no masses Back/Spine normal ROM and normal to inspection Extremity normal to inspection and full ROM Neuro oriented x3, CN's II-XII intact bilaterally, moves all extremities, no focal motor deficits and no sensory deficits noted Sensorium / Orientation: awake and alert Psych mental status grossly normal and thought process normal <Dr. Femi Iraheta, - Last Filed: 05/06/23 23:07> Physical Exam Const Vital Signs: 05/06/23 18:19 05/06/23 21:06 05/06/23 21:51 Temperature 97.4 F L 98 F 98.7 F Temperature Source Temporal Temporal Pulse Rate 92 85 88 Respiratory Rate 18 18 16 Blood Pressure 119/101 H 121/71 H 107/75 Blood Pressure Mean 107 87 85 Pulse Ox 95 96 97 Oxygen Delivery Method Room Air Room Air PROC <MICKEY Bro - Last Filed: 05/06/23 21:57> Procedures Lacerations laceration: Length: 3 cm Depth: Sub Q Shape: Linear Prep: Chlorhexadine Laceration repair: Irrigated and Lidocaine with epi Number of Sutures/[place]: 4 Suture Information: Ethilon, Simple and 6-0 MDM <MICKEY Bro - Last Filed: 05/06/23 21:57> [facility] Narrative Medical decision making narrative: Patient presenting today with a laceration to her left forehead. She slipped in her bathroom and hit it on the corner of the sink. There is no LOC, no N/V, tetanus will be updated. Laceration copiously irrigated with normal saline and cleaned with chlorhexidine. According to the [place] head CT rules, I do not feel that any imaging is indicated of patient's head. Stitches were placed, patient tolerated procedure well. Bacitracin ointment was applied to the wound. She was given Tylenol for her head pain. Head injury precautions discussed. She is to have stitches out in 4 to 5 days. She is to follow-up with her PCP and has been given return instructions. Wound care instructions given. She will be discharged home in stable condition and is comfortable with plan. <Dr. Femi Iraheta, - Last Filed: 05/06/23 23:07> [facility] Treatment and Re-Evaluation Narrative: I have personally performed a face to face assessment of the patient and have reviewed the CAMILO Note. I performed a substantive portion of the visit including all aspects of the following. My joshi findings include: History: Patient presents with forehead laceration that occurred today. Patient slipped while she was cleaning her shower and hit her head on the sink. Patient denies any loss of consciousness. Patient describes her pain as cramping. Patient denies any paresthesias or weakness. Patient states nothing makes her pain better and nothing makes it worse. Patient is unsure of her last tetanus. Exam: Vital signs are stable. Patient is afebrile. Patient is in no acute distress. Oral mucosa is pink and moist. Neck is supple. Trachea is midline. No JVD. Heart was regular rate and rhythm. Lungs are clear and equal bilaterally. Cranial nerves II through XII are intact. There are no focal motor or sensory deficits noted. Skin is warm and dry. There is a 3 cm full-thickness provide linear laceration over the left frontal/temporal area. There is mild gapping of the wound margins. There is no bony crepitance or step-off. There is no foreign body noted. There is no active bleeding noted. Medical Decision Making: Patient was given her tetanus booster here. Patient was given a dose of Tylenol. The wound was cleaned and irrigated with copious amounts normal saline. The wound was anesthetized with lidocaine with epinephrine. The wound was closed by the CAMILO under my supervision. Bacitracin dressing was applied. Patient tolerated procedure well. Patient was instructed to keep the wound clean and dry. Patient was instructed to follow-up with her primary care physician in 5 days for wound recheck and suture removal. Patient understood and was agreeable with the plan. All questions were answered. Discharge Plan Triage Chief Complaint: Laceration ED Midlevel Provider: Beth Johnson ED Provider: Femi Iraheta Dx/Rx/DC Orders Clinical Impression: Facial laceration, Head injury Instructions: ED Head Injury (Adult), ED Laceration, All Closures Prescriptions: No Action amitriptyline 100 MG tablet 300 mg PO QHS ondansetron 4 MG tablet 4 mg PO Q8H PRN PRN (Reason: Nausea) Qty: 10 0RF divalproex 250 MG tablet 500 mg PO BIDCM Qty: 60 0RF melatonin 3 MG tablet 3 mg PO QHS PRN PRN (Reason: Insomnia) Qty: 30 0RF gabapentin 100 MG capsule 200 mg PO TID hydroxyzine pamoate 25 mg capsule 25 - 50 mg PO TID Patient Comments: Take 1-2 capsules by mouth three times daily as needed for Anxiety. promethazine [promethazine] 25 MG tablet 25 mg PO Q6H PRN PRN (Reason: Nausea) Qty: 10 0RF diphenoxylate-atropine [Lomotil] 2.5-0.025 mg tablet 1 tab PO 4X/DAY PRN PRN (Reason: diarrhea) 5 Days Qty: 20 0RF ferrous sulfate [FeroSul] 325 mg (65 mg iron) tablet 325 mg PO BID Patient Comments: Take 1 tablet by mouth twice daily. Primary Care Provider: Giancarlo Espinosa Referrals: Giancarlo Espinosa MD [Primary Care Provider] - 5 Days for suture removal Activity Restrictions/Additional Instructions: Please return for any signs of infection, follow-up with your PCP to have stitches out in 4 to 5 days Disposition Disposition: Home, Self Care Discharge Date/Time: 05/06/23 21:55
[2023-05-06] MEDS: Diphth,Pertuss(Acell),Tet Vac 0.5 ML Vial IM (21:30)
[2023-05-06] MEDS: Lidocaine 1% /Epi 1:100 (20ml) 20 ML Vial 10 ML INFILT (21:31)
--- OUTSIDE RECORDS SUMMARY | 2023-05-06 21:34 | XMS RPT_ITS | CCD ---
Author Name Unknown Address [address] [place] [address] Organization [facility] Care Team Providers Care Game Warden Name Role Phone AWENDER, MAICO S Unavailable Unavailable AWENDER, MAICO S Unavailable Unavailable AWENDER, H S Unavailable Unavailable AWENDER, H S Unavailable Unavailable MARCIAL FABIAN Attending Unavailable YULIANA CUMMINGS Primary Care Unavaila GERTRUDE Ballard Consulting Unavailable YULIANA CUMMINGS Primary Care Unavaila VAHID Wyman JR. Consulting Unavailab VAHID Vaughan JR. Admitting UnavailVAHID Henley JR. Attending UnavailCINDY Motley Consulting Unavailable YULIANA CUMMINGS Consulting Unavaila JUSTIN Mccormick Attending Unavailable YULIANA CUMMINGS Primary Care Unavaila Yuliana Thomson Primary Care Provider [phone] TATIANA LOWE Admitting Unavailable JERRY ELAINE Referring Unavailable YULIANA CUMMINGS Primary Care Unavailable CRISTHIAN ALTMAN Consulting Unavailable ASHIA FOY Attending Unavailable JASKARAN CRABTREE Consulting Unavailable BARBARA ZAMARRIPA Consulting Unavailable Yuliana Cummings Primary Care Provider [phone] Ramon Trejo MD Primary Care Provider Adelso Ortiz DO Primary Care Provider [phone] Doi Luisa BARONE Unavailable Ramon Trejo MD Primary Care Provider Ramon Trejo MD Primary Care Provider Ramon Trejo MD Primary Care Provider Doi Luisa BARONE Unavailable Michelle Lerner MD Primary Care Provider TAMIKO TONEY Attending Unavailable TAMIKO TONEY Referring Unavailable RAMON TREJO Primary Care Unavailable Doi Luisa ABRONE Unavailable [phone] Michelle Lerner MD Primary Care Provider ADELSO ORTIZ Primary Care Unavailable PROVIDER, UNKNOWN Admitting Unavailable WINNIE RASCON Attending Unavailable Doi Luisa BARONE Unavailable RAMON TREJO Primary Care Unavailable ERI, YONG Attending Unavailable RAMON TREJO Attending Unavailable RAMON TREJO Primary Care Unavailable RAMON TREJO Primary Care Unavailable ERI, YONG Referring Unavailable RAMON TREJO Primary Care Unavailable ERI, YONG Attending Unavailable RAMON TREJO Primary Care Unavailable SELF Referring Unavailable Allergies Allergy Classification Reported Allergen(s) Allergy Type Date of Onset Reaction(s) Facility (20 sources) naproxen; Translations: [NAPROXEN] Drug Allergy 5 Hives, Nausea And Vomiting, GI Upset [facility] Repository (20 sources) zolpidem; Translations: [ZOLPIDEM] Drug Allergy 2 Mental Status Change [facility] Repository (1 source) Penicillins Propensity to adverse reactions to drug 9 [place], [place] (20 sources) gabapentin; Translations: [GABAPENTIN] Drug Allergy 9 Other: See
[2023-05-06 21:51] VITALS: BP 107/75; PULSE 88; RESP 16; TEMP 37.1; O2SAT 97
[2023-05-06] MEDS: Acetaminophen 325 MG Tablet 650 MG PO (21:54)
== END 2023-05-06 21:55 | disposition home or self-care (01) ==
PROVIDERS: Emergency Provider Emergency Medicine; PCP Family Medicine; Visit Provider Emergency Medicine
DX: S01.81XA Laceration without foreign body of other part of head, initial encounter (principal); Z23 Encounter for immunization; Z79.899 Other long term (current) drug therapy; X58.XXXA Exposure to other specified factors, initial encounter
CPT/HCPCS: 12013; 90471; 90715; 99282

== ENCOUNTER 2023-05-16 13:12 | Emergency (ER) | payer MEDICAID, SELFPAY ==
[2023-05-16 13:13] VITALS: BP 124/95; PULSE 98; RESP 16; TEMP 36.3; O2SAT 100; BMI 27.1
--- NOTE | 2023-05-16 13:18 | ED.RN ---
PT WOULD LIKE TO SPEAK WITH SOCIAL WORK
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
[2023-05-16 14:49] VITALS: O2SAT 97
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
--- NOTE | 2023-05-16 14:54 | CT_ITS ---
STUDY: CT BRAIN WITHOUT CONTRAST REASON FOR EXAM: Female, 43 years old. Trauma RADIATION DOSAGE (If Supplied By Facility): CTDIvol = ( 44.99 ) mGy, DLP = ( 779.24 ) mGycm TECHNIQUE: Transaxial CT imaging of the brain was performed without administration of intravenous contrast material. Individualized dose optimization techniques were used for this CT. COMPARISON: Prior study dated: FINDINGS: PARENCHYMA: There is no acute bleed or infarct. There are normal white matter tracts. VENTRICLES: There is no hydrocephalus. MASTOID AIR CELLS AND PARANASAL SINUSES: The visualized paranasal sinuses are clear. The mastoid air cells are clear. BONES: There is no skull fracture. SOFT TISSUES: The visualized soft tissues are within normal limits. CT/Brain/Head without Contrast IMPRESSION: No acute intracranial abnormality. Please see the report for the facial bone CT which is dictated separately. Electronically Signed: Michael Ngo MD at 16:01 EST ,
--- NOTE | 2023-05-16 14:54 | CT_ITS ---
STUDY: CT CHEST, ABDOMEN T PELVIS WITHOUT CONTRAST REASON FOR EXAM: Female, 43 years old. Trauma RADIATION DOSAGE (If Supplied By Facility): CTDIvol = ( 14.50 ) mGy, DLP = ( 1413.94 ) mGycm TECHNIQUE: Transaxial imaging was performed without the administration of intravenous contrast material. Multiplanar coronal and sagittal images were reformatted. Individualized dose optimization techniques were used for this CT. COMPARISON: Prior study dated: CT of the abdomen and pelvis dated 06/24/2022 FINDINGS: LUNGS: There are no pulmonary infiltrates. There are no pulmonary nodules or masses. PLEURAL SPACE: There are no pleural effusions. There is no pneumothorax. MEDIASTINUM: The heart and pericardium are within normal limits. There is no pneumomediastinum. There is no thoracic lymphadenopathy. THORACIC VESSELS: There is no evidence of thoracic aortic aneurysm. GALLBLADDER / BILE DUCTS: There are no calcified gallstones present. There is no intrahepatic biliary duct dilatation. The common bile duct is normal in caliber. There are no calcified ductal stones. The common bile duct is normal in caliber. There are no calcified ductal stones. LIVER: The liver demonstrates an unremarkable unenhanced appearance. SPLEEN: The spleen is normal in size. PANCREAS: The pancreas demonstrates an unremarkable unenhanced appearance. ADRENAL GLANDS: The adrenal glands are within normal limits. KIDNEYS / BLADDER: There are small nonobstructing left renal collecting system stones, measuring 1 to 2 mm. There are no additional urinary calculi. There is no hydronephrosis. There are no focal renal lesions identified on this noncontrast exam. The urinary bladder is partially distended and appears grossly unremarkable. STOMACH / BOWEL: Normal visualized stomach. There is no bowel obstruction or inflammation. There is a large amount of stool in the colon, consistent with constipation. The appendix is not visualized, but there are no findings to suggest acute appendicitis. PERITONEUM / RETROPERITONEUM: There is no abdominal or pelvic free air, free fluid or fluid collection. Again noted is a markedly enlarged and heterogeneous uterus. This is likely due to fibroids. There is an intrauterine device in place. There is no abdominal or pelvic lymphadenopathy. ABDOMINAL VESSELS: The aorta is normal in caliber. The IVC is unremarkable. BONES: The visualized osseous structures are intact. There is no acute fracture or dislocation in the chest, abdomen or pelvis. There are old, healed left-sided rib fractures noted. SOFT TISSUES: The visualized soft tissues are within normal limits. CT/CT Chest, Abd, Pelvis WO Cont IMPRESSION: No acute traumatic findings demonstrated on this noncontrast CT of the chest, abdomen and pelvis. Clear lungs. No pneumothorax. Small nonobstructing left renal collecting system stones, measuring 1 to 2 mm. No additional urinary calculi. No hydronephrosis. No bowel obstruction or inflammation. Constipation. Stable enlarged and heterogeneous uterus which is likely due to fibroids. Electronically Signed: Michael Ngo MD at 16:41 EST ,
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
[2023-05-16] MEDS: Morphine 4 MG/ML Syringe IV (15:24)
[2023-05-16 15:33] LABS: Bacteria 0 SEEN /hpf (None Seen); Mucous, Urine 0 SEEN /hpf (<or=2+); Red Blood Cells-Urine 0 SEEN /hpf (0-5); Squamous Epithelial Cells - UA 0 SEEN /hpf (5-10)
[2023-05-16 15:39] LABS: Color, Urine Yellow (Yellow); Glucose, Dipstick Normal (Normal); Ketone-Dipstick Negative (Negative); Leukocyte Esterase-Dipstick 25 /ul (Negative); Nitrite-Dipstick Negative (Negative); Occult Blood-Urine Negative /ul (Negative); Protein-Dipstick Negative (Negative); Urine Bilirubin Dipstick Negative (Negative); Urine Clarity Clear (Clear); Urine Urobilinogen Normal (Normal); Urine pH 6.5 (5.0 - 8.0)
[2023-05-16 15:44] LABS: Absolute Lymphocyte Count 2.03 X10^3/uL (0.83-4.51); Absolute Neutrophil Count 7.7 X10^3/uL (2.0-7.7); Basophil# 0.02 X10^3/uL; Basophil% 0.2 % (0-1); Eosinophil# 0.01 X10^3/uL; Eosinophils% 0.1 % (0-5); Hematocrit 39.4 % (37-47); Hemoglobin 13.1 g/dL (12.0-15.0); Lymphocyte # 2.03 X10^3/ul (0.83-4.51); Lymphocyte % 19.2 % (19-41); Mean Corp Hgb Conc 33.2 g/dL (32-36); Mean Corpuscular Hgb 32.2 pg (27.0-32.0); Mean Corpuscular Volume 96.8 fL (81-99); Mean Platelet Vol. 9.2 fl (6.2-12.0); Monocyte# 0.81 X10^3/uL; Monocyte% 7.7 % (0-10); NRBC Flagged by Analyzer 0 % (0-5); Neutrophil # 7.65 X10^3/uL (2.7-7.7); Neutrophil % 72.5 % (47-70); Platelet Count 359 K/mm3 (150-450); RBC Distribution Width CV 12.8 % (11.6-14.6); RBC Distribution Width SD 45.9 fl (35.1-43.9); Red Blood Count 4.07 M/mm3 (4.2-5.4); White Blood Count 10.6 K/mm3 (4.4-11.0)
[2023-05-16 15:50] LABS: Internal QC Validated? YES +Cl - CLEAR BKGD; Pregnancy, Urine Negative Negative
[2023-05-16 15:51] LABS: White Blood Cells 0-5 SEEN /hpf (0-5)
[2023-05-16 15:55] LABS: Anion Gap 4 (5-15); BUN 12 mg/dL (7-18); Calcium,Total 9.6 mg/dL (8.5-10.1); Chloride 106 mmol/L (98-107); Creatinine, Serum 0.75 mg/dL (0.55-1.02); EST Glomerular Filtration Rate 89 mL/min (>60); Est Glom Filt Rate - Afr Amer 108 mL/min (>60); Glucose 86 mg/dL (74-106); Potassium 3.8 mmol/L (3.5-5.1); Sodium Level 137 mmol/L (136-145)
[2023-05-16 16:33] VITALS: BP 121/95; PULSE 82; RESP 14; O2SAT 98
[2023-05-16 17:12] VITALS: BP 131/76; PULSE 86; RESP 14; O2SAT 99
[2023-05-16 17:48] VITALS: BP 99/67; PULSE 84; RESP 14; TEMP 36.5; O2SAT 95
--- NOTE | 2023-05-16 18:00 | ED.RN ---
1548: I was giving patient discharge instructions and was told not to drive self home due to receiving morphine during ER stay. I was told by the patient I will be walking home . The patient was also given a [employer] pamphlet to take home for resources.
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
--- OUTSIDE RECORDS SUMMARY | 2023-05-16 19:02 | XMS RPT_ITS | CCD ---
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 menstrual bleeding Kidney stones Multiple sclerosis (HCC) Transverse myelitis (HCC) 2007 PAST SURGICAL HISTORY Procedure Laterality Date APPENDECTOMY 2009 ARTHROSCOPY KNEE DIAGNOSTIC W/WO SYNOVIAL BX SPX 1997 Arthroscopy, knee R knee. LIG/TRNSXJ FLP TUBE ABDL/VAG APPR UNI/BI 2005 Tubal ligation ALLERGIES Naproxen, Neurontin [Gabapentin], and Zolpidem MEDICATIONS melatonin 5 mg tablet Take 1 tablet by mouth at bedtime as needed for insomnia (Sleep). cyclobenzaprine (FLEXERIL) 10 mg tablet Take 1 tablet by mouth three times a day as needed for muscle spasm. sertraline (ZOLOFT) 50 mg tablet Take 1 tablet by mouth once daily. gabapentin (NEURONTIN) 600 mg tablet Take 1 tablet by mouth three times a day for 90 days. amitriptyline (ELAVIL) 100 mg tablet Take 3 tablets by mouth daily at bedtime. ferrous sulfate (IRON) 325 mg (65 mg iron) tablet Take 1 tablet by mouth twice daily. hydrOXYzine pamoate (VISTARIL) 25 mg capsule Take 1-2 capsules by mouth three times daily as needed for anxiety. divalproex DR (DEPAKOTE) 250 mg EC tablet Take 1 tablet by mouth twice daily. ondansetron (ZOFRAN) 4 mg tablet TAKE 1 TABLET BY MOUTH EVERY 8 HOURS NEEDED FOR NAUSEA AND VOMITING FAMILY HISTORY Problem Relation Age of Onset Asthma Daughter Asthma Daughter Breast Cancer Paternal Grandmother Cancer Father Diabetes Father Hypertension Father Social History Tobacco Use Smoking status: Never Smokeless tobacco: Never Substance Use Topics Alcohol use: Yes Comment: rare use, New years etc. Drug use: Yes Types: Amphetamines Comment: hx Review of Systems Constitutional: Negative for activity change and chills. HENT: Negative for congestion, dental problem, sinus pressure, sinus pain, sneezing and sore throat. Eyes: Negative for photophobia, pain, discharge, redness and itching. Respiratory: Negative for apnea, choking, chest tightness and shortness of breath. Cardiovascular: Negative for chest pain. Gastrointestinal: Negative for abdominal pain, diarrhea, nausea and vomiting. Musculoskeletal: Negative for arthralgias and back pain. Skin: Positive for wound. Negative for color change, pallor and rash. Allergic/Immunologic: Negative for environmental allergies, food allergies and immunocompromised state. Neurological: Negative for dizziness, facial asymmetry, light-headedness and headaches. Hematological: Negative for adenopathy. Does not bruise/bleed easily. Psychiatric/Behavioral: Negative for agitation and behavioral problems. Objective BP 108/77 Pulse 88 Temp 36.3 C (97.4 F) Resp 18 Wt 66.7 kg (147 lb) LMP (LMP Unknown) SpO2 100% BMI 26.89 kg/m Physical Exam Vitals and nursing note reviewed. Constitutional: General: She is not in acute distress. Appearance: Normal appearance. She is normal weight. She is not ill-appearing, toxic-appearing or diaphoretic. HENT: Head: Normocephalic and atraumatic. Comments: Left frontal forehead with linear like laceration X 4 interrupted sutures noted Right Ear: Ear canal and external ear normal. Left Ear: Ear canal and external ear normal. Nose: Nose normal. No congestion or rhinorrhea. Mouth/Throat: Mouth: Mucous membranes are moist. Pharynx: No oropharyngeal exudate or posterior oropharyngeal erythema. Eyes: General: Right eye: No discharge. Left eye: No discharge. Extraocular Movements: Extraocular movements intact. Conjunctiva/sclera: Conjunctivae normal. Pupils: Pupils are equal, round, and reactive to light. Cardiovascular: Rate and Rhythm: Normal rate and regular rhythm. Pulses: Normal pulses. Heart sounds: Normal heart sounds. No murmur heard. No friction rub. Pulmonary: Effort: Pulmonary effort is normal. No respiratory distress. Breath sounds: Normal breath sounds. No stridor. No wheezing, rhonchi or rales. Chest: Chest wall: No tenderness. Abdominal: General: Abdomen is flat. There is no distension. Palpations: Abdomen is soft. There is no mass. Tenderness: There is no abdominal tenderness. There is no right CVA tenderness, left CVA tenderness, guarding or rebound. Hernia: No hernia is present. Musculoskeletal: General: No swelling, tenderness, deformity or signs of injury. Normal range of motion. Cervical back: Normal range of motion and neck supple. No rigidity. Right lower leg: No edema. Left lower leg: No edema. Lymphadenopathy: Cervical: No cervical adenopathy. Skin: General: Skin is warm and dry. Capillary Refill: Capillary refill takes less than 2 seconds. Coloration: Skin is not jaundiced or pale. Findings: No bruising, erythema, lesion or rash. Neurological: General: No focal deficit present. Mental Status: She is alert and oriented to person, place, and time. Cranial Nerves: No cranial nerve deficit. Sensory: No sensory deficit. Motor: No weakness. Coordination: Coordination normal. Gait: Gait normal. Psychiatric: Mood and Affect: Mood normal. Behavior: Behavior normal. Thought Content: Thought content normal. Judgment: Judgment normal. Assessment and Plan ASSESSMENT/PLAN: 1. Encounter for removal of sutures - ICD9: V58.32, ICD10: Z48.02 (primary diagnosis) X 4 simple interrupted sutures removed without incident Tolerated well +ATB ointment applied 2. Visit for wound check - ICD9: V58.89, ICD10: Z51.89 X 6 days Wound healing as expected Keep area clean and dry Topical ATB Priyanka Sung APRN.RECYCLING COORDINATOR documented in this encounter [facility] 04-04-2023 Note HNO ID: [id number] Author: RAMON ESPINOSA MD Service: ? Author Type: Physician Type: Progress Notes Filed: 04/04/2023 19:54 Note Text: Chief Complaint Patient presents with: F/U 6 months HPI Yared Stallworth is a 43 year old female who presents here today for 6 month follow up. Pt was 16 minutes late for her 20 minute appt today. Declined flu and Covid vaccines. No bowel, Gi, or urinary issues. [place]: iron deficient; taking Iron BID. Psych: Taking Elavil 100 mg 3 pills daily at bedtime. Uses Vistaril 25 mg 1-2 pills TID prn. Pt stated she was on Buspar in the past but that didn't help. She was on Clonazepam which helped. She states that her fiance has been in a senior care as he had 2 heart attacks and 2 strokes, he is on a ventilator and she states that they are to the point now where they have to pull the plug . She states that he is only 45 years old. She states that he went without oxygen too long so feels it is her fault, that she wasn't able to perform CPR right. She is not doing any counseling. She has not been on any other medications in the past for depression and anxiety. Pt has hx of MS and Seizures. Is taking Depakote 250 mg 1 pill BID and Gabapentin. 400 mg 1 pill TID, and Baclofen 5 mg 1 pill TID prn. Pain is worse with increased activity. Pt given consult to Neurology at last office visit, no appt scheduled. She does not feel that the Baclofen is not helping, has not tried any other muscle relaxants and the Gabapentin she feels that the dosage needs increased. She feels that the Gabapentin is helping but needs it increased again. Pt was referred to Neuro but they were not able reach her to schedule. She had TB test done for work, came back positive. Pt was to get a chest xray done. Past medical history, appointments, medications, allergies reviewed. Previous Medical History PAST MEDICAL HISTORY Diagnosis Date Anemia Avascular necrosis (HCC) left hip. DO NOT PRESCRIBE CONTROLLED SUBSTANCES-See TE 01/05/16 Depression Encounter for insertion of mirena IUD 06/30/2017 heavy menstrual bleeding Kidney stones Multiple sclerosis (HCC) Transverse myelitis (HCC) 2007 Previous Surgical History PAST SURGICAL HISTORY Procedure Laterality Date APPENDECTOMY 2009 ARTHROSCOPY KNEE DIAGNOSTIC W/WO SYNOVIAL BX SPX 1997 Arthroscopy, knee R knee. LIG/TRNSXJ FLP TUBE ABDL/VAG APPR UNI/BI 2006 Tubal ligation Family History FAMILY HISTORY Problem Relation Age of Onset Asthma Daughter Asthma Daughter Breast Cancer Paternal Grandmother Cancer Father Diabetes Father Hypertension Father Patient Allergies ALLERGIES Allergen Reactions Naproxen GI Upset Neurontin [Gabapent* Other: See Comments Pt reported to be abusing medication Zolpidem Mental Status Change Current Medications Current Outpatient Medications on File Prior to Visit Medication Sig amitriptyline (ELAVIL) 100 mg tablet Take 3 tablets by mouth daily at bedtime. omeprazole (PRILOSEC) 20 mg capsule Take 1 capsule by mouth daily 30 minutes before breakfast melatonin 5 mg tablet Take 1 tablet by mouth at bedtime as needed for for insomnia (Sleep). ferrous sulfate (IRON) 325 mg (65 mg iron) tablet Take 1 tablet by mouth twice daily. baclofen 5 mg tablet Take 1 tablet by mouth three times daily as needed (muscle spasms). gabapentin (NEURONTIN) 400 mg capsule Take 1 capsule by mouth three times daily for 180 days. hydrOXYzine pamoate (VISTARIL) 25 mg capsule Take 1-2 capsules by mouth three times daily as needed for anxiety. divalproex DR (DEPAKOTE) 250 mg EC tablet Take 1 tablet by mouth twice daily. melatonin 10 mg tab Take 1 tablet by mouth at bedtime as needed for for insomnia (Sleep). ondansetron (ZOFRAN) 4 mg tablet TAKE 1 TABLET BY MOUTH EVERY 8 HOURS NEEDED FOR NAUSEA AND VOMITING dicyclomine (BENTYL) 10 mg capsule THREE TIMES DAILY BEFORE MEALS loperamide (IMODIUM) 2 mg cap(s) DIRECTED fluticasone (FLONASE) 50 mcg/actuation nasal spray Use 1 Early Branch in each nostril once daily. No current facility-administered medications on file prior to visit. Social History Social History Tobacco Use Smoking status: Never Smokeless tobacco: Never Substance Use Topics Alcohol use: Yes Comment: rare use, New years etc. Drug use: Yes Types: Amphetamines Comment: hx EXAM: BP 124/78 Pulse 74 Resp 16 Wt 67.2 kg (148 lb 1.6 oz) LMP (LMP Unknown) BMI 27.09 kg/m? General Appearance: Well appearing, alert, in no acute distress, well-hydrated, well nourished. Lungs: Lungs clear to auscultation. No wheezing, rhonchi, rales.. Heart: RRR without murmur, gallop, or rubs. No ectopy. Health Maintenance List Hepatitis B Vaccine(1 of 3 - 3-dose series) Never done Covid-19 Vaccine(1) Never done HIV Screening Never done HPV Testing Never done Mammogram Screening Never done Influenza Vaccine(1) due on 11/12/2022 Pap Testing due on (more content not included)... [facility] 03-16-2023 Note Patient Outreach (IN [facility]) YARED STALLWORTH ([id number]) 1980 F T Date Time Provider Department 03/16/23 RAMON ESPINOSA During your visit today, we recorded the following information about you: Allergies As of Date: 03/16/2023 Noted Allergy Reaction NAPROXEN 11/27/2014 8 - GI Upset NEURONTIN (GABAPENTIN) 07/13/2018 14 - Other: See Comments Comments: Pt reported to be abusing medication ZOLPIDEM 12/26/2011 1 - Mental Status Change Date Reviewed: 09/24/2022 Reviewed by: Annmarie Soriano MA - Fully Assessed Visit Diagnosis:Encounter for screening mammogram for breast cancer [Z12.31] Order(s):[facility] SCREENING [[id number]] Order #: [id number] FUTURE Prescriptions as of 03/21/2023 - amitriptyline (ELAVIL) 100 mg tablet Take 3 tablets by mouth daily at bedtime. - omeprazole (PRILOSEC) 20 mg capsule Take 1 capsule by mouth daily 30 minutes before breakfast - melatonin 5 mg tablet Take 1 tablet by mouth at bedtime as needed for for insomnia (Sleep). - ferrous sulfate (IRON) 325 mg (65 mg iron) tablet Take 1 tablet by mouth twice daily. - baclofen 5 mg tablet Take 1 tablet by mouth three times daily as needed (muscle spasms). - gabapentin (NEURONTIN) 400 mg capsule Take 1 capsule by mouth three times daily for 180 days. - hydrOXYzine pamoate (VISTARIL) 25 mg capsule Take 1-2 capsules by mouth three times daily as needed for anxiety. - divalproex DR (DEPAKOTE) 250 mg EC tablet Take 1 tablet by mouth twice daily. - melatonin 10 mg tab Take 1 tablet by mouth at bedtime as needed for for insomnia (Sleep). - ondansetron (ZOFRAN) 4 mg tablet TAKE 1 TABLET BY MOUTH EVERY 8 HOURS NEEDED FOR NAUSEA AND VOMITING - dicyclomine (BENTYL) 10 mg capsule THREE TIMES DAILY BEFORE MEALS - loperamide (IMODIUM) 2 mg cap(s) DIRECTED - fluticasone (FLONASE) 50 mcg/actuation nasal spray Use 1 Early Branch in each nostril once daily. Meds Comments as of 08/01/2020: Uses Tylenol prn for pain. Problem List As Of Date 03/16/2023 Noted Resolved Relapsing remitting multiple sclerosis (HCC) [G*10/02/2014 Anemia, iron deficiency [D50.9] 10/02/2014 Kidney stones [N20.0] 12/11/2014 Multiple sclerosis (HCC) [G35] 05/22/2020 Depression [F32.A] Avascular necrosis of bone of left hip (HCC) [M*01/29/2016 Frequent falls [R29.6] 03/19/2016 Avascular necrosis (HCC) [M87.00] Impaction of colon (HCC) [K56.49] 01/12/2017 01/12/2017 Methamphetamine use (HCC) [F15.10] 12/01/2017 Ecstasy use disorder, mild, abuse (HCC) [F16.10]12/01/2017 Seizures (HCC) [R56.9] 06/27/2018 Wellness examination [Z00.00] 05/22/2020 Encounter Status:Closed by EPIC, PRODUSER on 03/21/23 [facility] 02-14-2023 Miscellaneous Notes Pt called and notified, verbalized understanding. Kayleigh Marc Ma OK for diflucan as ordered Ramon Espinosa MD Patient calling to say she is having itching, burning and thick white milky vaginal discharge. She is asking for medication for yeast infection. She has used Fluconazole in the past. Drug [facility]. Radha King, RN documented in this encounter [facility] 02-11-2023 Miscellaneous Notes Patient notified of results, verbalizes understanding of instructions. Annmarie Soriano MA Please call patient back and remind her to get Chest xray completed. She had a positive TB screening 6 months ago and never got it completed. The following approved medication requests have been transmitted electronically. Requested Prescriptions Pending Prescriptions Disp Refills omeprazole (PRILOSEC) 20 mg capsule [Pharmacy Med Name: omeprazole 20 mg capsule,delayed release] 30 capsule 5 Sig: Take 1 capsule by mouth daily 30 minutes before breakfast Clifford Hwang APRN.VICTORINO Patient last visit 09/24/22 Follow up appointment scheduled 03/28/23 Sujata Fragoso Ma Patient has been identified by name and date of : Yes, Provider Dr. Espinosa Date 02/11/23 Time 1:04 pm Patient phones for refill(s): Requested Prescriptions Pending Prescriptions Disp Refills omeprazole (PRILOSEC) 20 mg capsule [Pharmacy Med Name: omeprazole 20 mg capsule,delayed release] 30 capsule 5 Sig: Take 1 capsule by mouth daily 30 minutes before breakfast Date of last office visit in primary care: 09/24/2022 Date of next office visit in primary care: 03/28/2023 Last 2 Encounter Wt Readings: Date: Wt: 09/24/2022 84.8 kg (187 lb) 09/14/2022 83.2 kg (183 lb 6.4 oz) Previous labs/tests for medication: Not applicable Please advise. Thank you. Elzbieta Altamirano LPN. documented in this encounter [facility] 11-01-2022 Miscellaneous Notes Pt notified. Michelle Null Ma OK for three days of Bactrim DS as ordered. To be seen if symptoms do not improve with this Ramon Espinosa MD Pt stopped into office this evening c/o right flank pain x 3 days with sx of burning with urination, urinary frequency. No n/v, no fever. Asking for antibiotic to be sent to [facility] Devang Marroquin. Michelle Null Ma documented in this encounter [facility] 10-29-2022 Miscellaneous Notes Attempted to complete intake, phone rang then disconnected documented in this encounter [facility] 10-29-2022 Miscellaneous Notes Notified the patient about her appointments. The patient is scheduled for the [facility] on Dec 03 for MS. Left a voice message for the [facility] at ph# [phone] to call the patient to Schedule an appointment for seizures. Patient is scheduled in a follow up spot with Dr. Lopez on 12/03/22 for hx of seizures and multiple sclerosis. Patient has never been seen by Dr. Lopez and therefore a follow up spot is inappropriate. Furthermore, patient has followed with Epilepsy and Multiple Sclerosis providers in the past outside of the clinic. Dr. Lopez does not follow these disorders and patient needs to be re-scheduled appropriately with [facility] for Seizures and with the [facility] for MS. Please contact patient and assist in scheduling with correct providers. Thank you. LAYTON Mehta documented in this encounter [facility] 10-21-2022 Miscellaneous Notes The following approved medication requests have been transmitted electronically. Requested Prescriptions Signed Prescriptions Disp Refills melatonin 5 mg tablet 30 tablet 5 Sig: Take 1 tablet by mouth at bedtime as needed for for insomnia (Sleep). Authorizing Provider: RAMNO ESPINOSA Ma OK to refill as ordered. Ramon Espinosa MD Patient last visit with PCP 09/24/22 Follow up appointment scheduled 03/28/23 Sujata Fragoso Ma documented in this encounter [facility] 10-07-2022 Miscellaneous Notes Patient notified of results, verbalizes understanding of instructions. Annmarie Soriano MA [employer] message sent to pt notifying her we've attempted to reach her by phone and letter regarding recent lab results. Asked pt to contact office and speak with FM Triage Nurse. Kayleigh Marc Ma Letter mailed to pt home asking them to call the office back for results as she has not returned call. Michelle Null Ma X2 attempt. Unable to reach patient. Left VM to return call to office. Please read below and advise. Annmarie Soriano MA Unable to reach patient. Left VM to return call to office. Please read below and advise. Annmarie Soriano MA Please let the patient know that her labs are okay. Glucose is elevated. We should get a hemoglobin A1c to determine if she is a diabetic. Her iron levels and red blood cell levels are normal. She does not need to take any iron supplements at this time. I would just recommend a daily multivitamin that contains iron for stability. Her TB test was positive. We need to get a chest x-ray to determine if she has active or latent TB. Depakote level is on the lower side, as it was 2 years ago. Given that she has not had any seizures recently. I would continue with current Depakote dose level. Continue with plan to see neurology as scheduled. Clifford Hwang APRN.VICTORINO documented in this encounter [facility] 09-24-2022 Note HNO ID: [id number] Author: Clifford Hwang APRN.RECYCLING COORDINATOR Service: ? Author Type: Nurse Practitioner Type: Progress Notes Filed: 09/24/2022 12:18 PM Note Text: Chief Complaint Patient presents with: Medication Follow-up HPI Yared Stallworth is a 42 year old female who presents here today for Chronic Medical Conditions. follow up for medications. Patient here for medication follow-up. Patient takes gabapentin. Also on Elavil. History of MS. History of seizures. She takes Depakote. In May we increased her dose of gabapentin due to increased pain. States that her muscle are tender with increased activity. Would like to trial a muscle relaxer Prescribed Elavil for mental health. Also has some self-admitted anger issues. Patient is in need of a TB screening today. Reason is employment. History of iron deficient anemia. No CBC for the past 2 years. Using ferrous sulfate twice daily. Past medical history, appointments, medications, allergies reviewed. EXAM: BP 128/91 Pulse 93 Temp 36.6 ?C (97.9 ?F) (Left Tympanic) Resp 16 Wt 84.8 kg (187 lb) LMP (LMP Unknown) SpO2 98% BMI 34.20 kg/m? General Appearance: Well appearing, alert, in no acute distress, well-hydrated, well nourished.. Head: Normocephalic, no masses, lesions, tenderness or abnormalities. Eyes: Anicteric sclera. Pupils are equally round and reactive to light. Extraocular movements are intact. . Lungs: Lungs clear to auscultation. No wheezing, rhonchi, rales.. Heart: RRR without murmur, gallop, or rubs. No ectopy. ASSESSMENT/PLAN: 1. Relapsing remitting multiple sclerosis (HCC) - ICD9: 340, ICD10: G35 (primary diagnosis) -See neurology, continue current medications. - BACLOFEN 5 MG TABLET - CONSULT TO NEUROLOGY 2. Seizures (HCC) - ICD9: 780.39, ICD10: R56.9 -No recent seizures. Continue gabapentin and Depakote. - CONSULT TO NEUROLOGY 3. Screening for tuberculosis - ICD9: V74.1, ICD10: Z11.1 -Complete TB screening for appointment. - BLOOD TB SCREEN 4. Depression, unspecified depression type - ICD9: 311, ICD10: F32.A -Stable on Elavil 5. Anger - ICD9: 799.29, ICD10: R45.4 -Stable on Elavil. 6. Other iron deficiency anemia - ICD9: 280.8, ICD10: D50.8 -Check CBC. Instructed on need for ferrous sulfate. - CBC + DIFF - COMP METABOLIC PANEL - IRON + TIBC - FERRITIN BLD 7. Medication monitoring encounter - ICD9: V58.83, ICD10: Z51.81 -Check levels. - VALPRO AC/DEPAK FREE Clifford Hwang APRN.RECYCLING COORDINATOR RTO in 6 months, sooner if needed. This note was partly generated using MEEP voice recognition dictation and may contain some misspelled or inaccurate words missed on review. [facility] 09-20-2022 Miscellaneous Notes OK to refill as ordered Ramon Espinosa MD Last office visit: 05/14/22 F/u scheduled: none Michelle Null Ma documented in this encounter [facility] 09-14-2022 Note HNO ID: [id number] Author: Madison Chapin APRN.RECYCLING COORDINATOR Service: ? Author Type: Nurse Practitioner Type: Progress Notes Filed: 09/14/2022 10:10 AM Note Text: Subjective The history is provided by the patient. No certified court interpreter was used. HPI Yared Stallworth is a 42 year old female who presents today for CC of vaginal discharge itching for 2 day. She has a h/o yeast infections, has used fluconazole in the past with out problems. Denies any new partners or risks of STD's. Declines self swabbing and STD testing. BP 118/82 Pulse 83 Temp 36.4 ?C (97.6 ?F) (Tympanic) Resp 18 Wt 83.2 kg (183 lb 6.4 oz) LMP (LMP Unknown) SpO2 99% BMI 33.54 kg/m? Social History Tobacco Use Smoking status: Never Smokeless tobacco: Never Substance Use Topics Alcohol use: Yes Comment: rare use, New years etc. Drug use: Yes Types: Amphetamines Comment: hx PAST MEDICAL HISTORY Diagnosis Date Anemia Avascular necrosis (HCC) left hip. DO NOT PRESCRIBE CONTROLLED SUBSTANCES-See TE 01/05/16 Depression Encounter for insertion of mirena IUD 06/30/2017 heavy menstrual bleeding Kidney stones Multiple sclerosis (HCC) Transverse myelitis (HCC) 2006 I have confirmed and edited as necessary, the [place] [facility] Review of Systems Constitutional: Negative for chills and fever. Gastrointestinal: Negative for abdominal pain. Genitourinary: Negative for dysuria, flank pain, frequency, hematuria and urgency. Vaginal discharge AND itching Objective Physical Exam Vitals and nursing note reviewed. Exam conducted with a senior report developer present. Constitutional: Appearance: Normal appearance. Abdominal: General: Bowel sounds are normal. There is no abdominal bruit. Palpations: Abdomen is not rigid. There is no mass or pulsatile mass. Tenderness: There is no abdominal tenderness. There is no guarding or rebound. Negative signs include Castellano's sign and McBurney's sign. Genitourinary: Labia: Right: No rash, tenderness or lesion. Left: No rash, tenderness or lesion. Vagina: Vaginal discharge and erythema present. Cervix: Discharge present. Neurological: Mental Status: She is alert and oriented to person, place, and time. Psychiatric: Mood and Affect: Affect normal. ASSESSMENT/PLAN: 1. Acute vaginitis - ICD9: 616.10, ICD10: N76.0 Declines std testing Treat with fluconazole today - hold vistaril/zofran while taking. Will call if additional treatment needed Follow up with TRANSMISSION REPAIRER if no resolution - BACTERIAL VAGINOSIS NAAT - TEREZA/TRICHOMONAS NAAT Diagnosis and treatment plan were discussed and questions were answered to the patient's satisfaction. Pt acknowledged understanding of concepts and follow up plan. Specific signs and symptoms that would indicate the need for higher level of care were discussed in detail warranting prompt ER evaluation. Madison Chapin APRN.CNP [facility] 09-14-2022 Instructions Madison Chapin APRN.CNP - 09/14/2022 10:10 AM EDT Treat with fluconazole today - hold vistaril/zofran while taking. Will call if additional treatment needed Follow up with TRANSMISSION REPAIRER if no resolution documented in this encounter [facility] 09-14-2022 History of Present illness Narrative Subjective The history is provided by the patient. No certified court interpreter was used. HPI Yared Stallworth is a 42 year old female who presents today for CC of vaginal discharge itching for 2 day. She has a h/o yeast infections, has used fluconazole in the past with out problems. Denies any new partners or risks of STD's. Declines self swabbing and STD testing. BP 118/82 Pulse 83 Temp 36.4 C (97.6 F) (Tympanic) Resp 18 Wt 83.2 kg (183 lb 6.4 oz) LMP (LMP Unknown) SpO2 99% BMI 33.54 kg/m Social History Tobacco Use Smoking status: Never Smokeless tobacco: Never Substance Use Topics Alcohol use: Yes Comment: rare use, New years etc. Drug use: Yes Types: Amphetamines Comment: hx PAST MEDICAL HISTORY Diagnosis Date Anemia Avascular necrosis (HCC) left hip. DO NOT PRESCRIBE CONTROLLED SUBSTANCES-See TE 01/05/16 Depression Encounter for insertion of mirena IUD 06/30/2017 heavy menstrual bleeding Kidney stones Multiple sclerosis (HCC) Transverse myelitis (HCC) 2006 I have confirmed and edited as necessary, the [facility] Review of Systems Constitutional: Negative for chills and fever. Gastrointestinal: Negative for abdominal pain. Genitourinary: Negative for dysuria, flank pain, frequency, hematuria and urgency. Vaginal discharge & itching Objective Physical Exam Vitals and nursing note reviewed. Exam conducted with a senior report developer present. Constitutional: Appearance: Normal appearance. Abdominal: General: Bowel sounds are normal. There is no abdominal bruit. Palpations: Abdomen is not rigid. There is no mass or pulsatile mass. Tenderness: There is no abdominal tenderness. There is no guarding or rebound. Negative signs include Castellano's sign and McBurney's sign. Genitourinary: Labia: Right: No rash, tenderness or lesion. Left: No rash, tenderness or lesion. Vagina: Vaginal discharge and erythema present. Cervix: Discharge present. Neurological: Mental Status: She is alert and oriented to person, place, and time. Psychiatric: Mood and Affect: Affect normal. ASSESSMENT/PLAN: 1. Acute vaginitis - ICD9: 616.10, ICD10: N76.0 Declines std testing Treat with fluconazole today - hold vistaril/zofran while taking. Will call if additional treatment needed Follow up with TRANSMISSION REPAIRER if no resolution - BACTERIAL VAGINOSIS NAAT - TEREZA/TRICHOMONAS NAAT Diagnosis and treatment plan were discussed and questions were answered to the patient's satisfaction. Pt acknowledged understanding of concepts and follow up plan. Specific signs and symptoms that would indicate the need for higher level of care were discussed in detail warranting prompt ER evaluation. Madison Chapin APRN.CNP documented in this encounter [facility] 08-23-2022 Miscellaneous Notes OK to refill as ordered Ramon Espinosa MD Patient has been identified by name and date of : Patient phones for refill(s): Requested Prescriptions Pending Prescriptions Disp Refills gabapentin (NEURONTIN) 400 mg capsule 90 capsule 0 Sig: Take 1 capsule by mouth three times daily for 30 days. hydrOXYzine pamoate (VISTARIL) 25 mg capsule 60 capsule 5 Sig: Take 1-2 capsules by mouth three times daily as needed for anxiety. Date of last office visit in primary care: 05/14/2022, no future appt scheduled Last 2 Encounter Wt Readings: Date: Wt: 05/14/2022 91.6 kg (202 lb) 01/27/2022 87.5 kg (193 lb) Previous labs/tests for medication: Not applicable Please advise. Thank you. Luda Denney LPN Patient has been out of medication for few days now. documented in this encounter [facility] 07-23-2022 Miscellaneous Notes OK to refill as ordered Ramon Espinosa MD Patient has been identified by name and date of : Patient phones for refill(s): Requested Prescriptions Pending Prescriptions Disp Refills gabapentin (NEURONTIN) 400 mg capsule 90 capsule 0 Sig: Take 1 capsule by mouth three times daily for 30 days. Date of last office visit in primary care: 05/14/2022, no future appt scheduled Last 2 Encounter Wt Readings: Date: Wt: 05/14/2022 91.6 kg (202 lb) 01/27/2022 87.5 kg (193 lb) Previous labs/tests for medication: Not applicable Please advise. Thank you. Luda Denney LPN Patient said she will run out of medication middle next week. documented in this encounter [facility] 06-30-2022 Miscellaneous Notes The following approved medication requests have been transmitted electronically. Requested Prescriptions Pending Prescriptions Disp Refills divalproex DR (DEPAKOTE) 250 mg EC tablet 60 tablet 5 Sig: Take 1 tablet by mouth twice daily. gabapentin (NEURONTIN) 400 mg capsule 90 capsule 0 Sig: Take 1 capsule by mouth three times daily for 30 days. Abiola Sherman APRN.VICTORINO Patient has been identified by name and date of : Patient phones for refill(s): Requested Prescriptions Pending Prescriptions Disp Refills divalproex DR (DEPAKOTE) 250 mg EC tablet 60 tablet 5 Sig: Take 1 tablet by mouth twice daily. gabapentin (NEURONTIN) 400 mg capsule 90 capsule 0 Sig: Take 1 capsule by mouth three times daily for 30 days. Date of last office visit in primary care: 05/14/2022, no future appt scheduled Last 2 Encounter Wt Readings: Date: Wt: 05/14/2022 91.6 kg (202 lb) 01/27/2022 87.5 kg (193 lb) Previous labs/tests for medication: Not applicable Please advise. Thank you. Luda Denney LPN documented in this encounter [facility] 06-18-2022 Miscellaneous Notes Faxed. Michelle Null Ma Letter on PCP desk to be signed. Kayleigh Marc Ma Letter printed Ramon Espinosa MD Patient called, [facility] and they are requesting that letter be faxed from her PCP stating that she has MS. Patient asking that it be faxed to [phone]. Please advise. documented in this encounter [facility] 05-31-2022 Miscellaneous Notes The following approved medication requests have been transmitted electronically. Requested Prescriptions Pending Prescriptions Disp Refills omeprazole (PRILOSEC) 20 mg capsule [Pharmacy Med Name: omeprazole 20 mg capsule,delayed release] 30 capsule 5 Sig: Take 1 capsule by mouth daily 30 minutes before breakfast Clifford wHang APRN.VICTORINO documented in this encounter [facility] 05-31-2022 Miscellaneous Notes Patient calling to check status of request. Patient reports she takes care of her fiance, because he has had 2 [place]'s and 2 strokes. Asking if pcp would write a letter for her to give to Welfare stating she takes care of her fiance, so she doesn't have to work and can take care of him. Please phone patient for slate picker. documented in this encounter [facility] 05-20-2022 Miscellaneous Notes Noted Ramon Espinosa MD Patient calling said needs nurse to call [facility] to discuss issue with Gabapentin rx. [facility]oned [facility] and spoke to Liu and he said patient had picked up 300 mg rx last week and has 100 mg rx from last month and should use them up. Phoned patient back and explained to her to use the 100 mg and a 300 mg Gabapentin to make her 400 mg dose three times daily until those are used up. Phoned [facility] back and spoke to Elliot and told him that patient is using up previous rx. He is cancelling the 400 mg rx so patient will not come in and get that rx filled. Sending message to PCP to let him know the Gabapentin 400 mg rx was cancelled to prevent overdose issue with the patient. Pt notified and voiced understanding. Michelle Null Ma OK to increase to 400 mg tid as ordered Ramon Espinosa MD Pt called and reports the Gabapentin is not working and feels this needs to be increased to 400 mg. Please review and advise pt. Elzbieta Altamirano LPN documented in this encounter [facility] 05-14-2022 History of Present illness Narrative Chief Complaint Patient presents with: Follow Up: Discuss medication HPI Yared Stallworth is a 42 year old female who presents here today for Chronic Medical Conditions. follow up for gabapentin dose change. Patient wanting to discussing increasing her gabapentin Currently on Gabapentin 100 mg, taking 2 capsules, 3 times daily. She is also on Elavil. She has a history of MS. Has history of seizures also. She also has some left arm pain related to a laceration, went to [facility]. Has been on this dose for a few years. Overall, the gabapentin is helping but still thinks that an increase in the dose could help. Past medical history, appointments, medications, allergies reviewed. EXAM: BP 120/78 Pulse 88 Resp 16 Wt 91.6 kg (202 lb) LMP (LMP Unknown) BMI 36.95 kg/m General Appearance: Well appearing, alert, in no acute distress, well-hydrated, well nourished.. Lungs: Lungs clear to auscultation. No wheezing, rhonchi, rales.. Heart: RRR without murmur, gallop, or rubs. No ectopy. ASSESSMENT/PLAN: 1. Relapsing remitting multiple sclerosis (HCC) - ICD9: 340, ICD10: G35 (primary diagnosis) - Increase Gabapentin 300 mg tid. If not helping, can increase to 400 mg daily. - GABAPENTIN 300 MG CAPSULE - CONSULT TO NEUROLOGY 2. Seizures (HCC) - ICD9: 780.39, ICD10: R56.9 - GABAPENTIN 300 MG CAPSULE - CONSULT TO NEUROLOGY Clifford Hwang APRN.RECYCLING COORDINATOR This note was partly generated using Dragon voice recognition dictation and may contain some misspelled or inaccurate words missed on review. documented in this encounter [facility] 05-10-2022 Miscellaneous Notes Pt notified, scheduled with Abiola Sherman on Tue05/12/22 at 10:20 AM to discuss gabapentin dosage. Michelle Null Ma She needs an appt with one of our team in order to discuss increasing dose of gabapentin Ramon Espinosa MD Patient calling asking to have her Gabapentin dose increased for her MS pain. She has been taking the 100 mg 2 capsules three times daily for long nimco, she feels it is time to have dose increased. Patient uses [facility] for her pharmacy. Please advise documented in this encounter [facility] 05-06-2022 Miscellaneous Notes Pt called and notified of message below, verbalized understanding. Kayleigh Marc Ma OK to increase to 10 mg as ordered Ramon Espinosa MD Patient calls to ask if melatonin prescription could be increased at all. Patient reports that she has been taking it for some time now and it's not helpful. She is still waking in the middle of the night majority of the time. Please review and advise, Lauren Hernadez RN documented in this encounter [facility] 05-03-2022 Miscellaneous Notes PDMP website checked and validated. All prescriptions have been APPROPRIATELY filled. No suspicious activity was identified. 05/03/2022 by Clifford Hwang APRN.CNP The following approved medication requests have been transmitted electronically. Requested Prescriptions Signed Prescriptions Disp Refills gabapentin (NEURONTIN) 100 mg capsule 180 capsule 0 Sig: Take 2 capsules by mouth three times daily for 30 days. Authorizing Provider: CLIFFORD HWANG melatonin 5 mg tablet 30 tablet 3 Sig: Take 1 tablet by mouth at bedtime as needed for for insomnia (Sleep). Authorizing Provider: CLIFFORD HWANG APRN.CNP Patient has been identified by name and date of : Yes, Provider Dr. Espinosa Date 05-03-22 Time 9:14 am Patient phones for refill(s): Requested Prescriptions Pending Prescriptions Disp Refills gabapentin (NEURONTIN) 100 mg capsule 180 capsule 0 Sig: Take 2 capsules by mouth three times daily for 30 days. melatonin 5 mg tablet 30 tablet 3 Sig: Take 1 tablet by mouth at bedtime as needed for for insomnia (Sleep). Date of last office visit with pcp: 01-27-22. Next appt: none Last 2 Encounter Wt Readings: Date: Wt: 01/27/2022 87.5 kg (193 lb) 04/15/2021 72.1 kg (159 lb) Previous labs/tests for medication: Blood Pressure: BUN (mg/dL) Date Value 05/22/2020 19 Sodium (mmol/L) Date Value 05/22/2020 135 Last 1 Encounter BP Readings: Date: BP: 01/27/2022 120/88 Liver Function: ALT (U/L) Date Value 05/22/2020 36 AST (U/L) Date Value 05/22/2020 36 Please advise. Thank you. Bronson Smith RN documented in this encounter [facility] 04-05-2022 Miscellaneous Notes The following approved medication requests have been transmitted electronically. Requested Prescriptions Pending Prescriptions Disp Refills amitriptyline (ELAVIL) 100 mg tablet 90 tablet 5 Sig: Take 3 tablets by mouth daily at bedtime. Clifford Hwang APRN.CNP Patient has been identified by name and date of : Yes, Provider Dr. Espinosa Date 04-05-22 Time 8:12 am Patient phones for refill(s): Requested Prescriptions Pending Prescriptions Disp Refills amitriptyline (ELAVIL) 100 mg tablet 90 tablet 5 Sig: Take 3 tablets by mouth daily at bedtime. Date of last office visit with pcp: 01-27-22. Next appt: none Patient reports she is out of medication. Last 2 Encounter Wt Readings: Date: Wt: 01/27/2022 87.5 kg (193 lb) 04/15/2021 72.1 kg (159 lb) Previous labs/tests for medication: Blood Pressure: BUN (mg/dL) Date Value 05/22/2020 19 Sodium (mmol/L) Date Value 05/22/2020 135 Last 1 Encounter BP Readings: Date: BP: 01/27/2022 120/88 Liver Function: ALT (U/L) Date Value 05/22/2020 36 AST (U/L) Date Value 05/22/2020 36 Please advise. Thank you. Bronson Smith RN documented in this encounter [facility] 03-26-2022 Miscellaneous Notes The following approved medication requests have been transmitted electronically. Requested Prescriptions Pending Prescriptions Disp Refills gabapentin (NEURONTIN) 100 mg capsule 180 capsule 0 Sig: Take 2 capsules by mouth three times daily for 30 days. Clifford Hwang APRN.CNP Patient has been identified by name and date of : Patient phones for refill(s): Requested Prescriptions Pending Prescriptions Disp Refills gabapentin (NEURONTIN) 100 mg capsule 180 capsule 0 Sig: Take 2 capsules by mouth three times daily for 30 days. Date of last office visit in primary care: 01/27/2022, no future appt scheduled Last 2 Encounter Wt Readings: Date: Wt: 01/27/2022 87.5 kg (193 lb) 04/15/2021 72.1 kg (159 lb) Previous labs/tests for medication: Not applicable Please advise. Thank you. Luda Denney LPN documented in this encounter [facility] 02-25-2022 Miscellaneous Notes The following approved medication requests have been transmitted electronically. Requested Prescriptions Pending Prescriptions Disp Refills gabapentin (NEURONTIN) 100 mg capsule 180 capsule 0 Sig: Take 2 capsules by mouth three times daily for 30 days. Clifford Hwang APRN.CNP Patient has been identified by name and date of : Yes Patient phones for refill(s): Requested Prescriptions Pending Prescriptions Disp Refills gabapentin (NEURONTIN) 100 mg capsule 180 capsule 2 Sig: Take 2 capsules by mouth three times daily for 90 days. Date of last office visit with pcp: 01/27/2022 Future appt: none Last 2 Encounter Wt Readings: Date: Wt: 01/27/2022 87.5 kg (193 lb) 04/15/2021 72.1 kg (159 lb) Previous labs/tests for medication: Blood Pressure: BUN (mg/dL) Date Value 05/22/2020 19 Sodium (mmol/L) Date Value 05/22/2020 135 Last 1 Encounter BP Readings: Date: BP: 01/27/2022 120/88 Liver Function: ALT (U/L) Date Value 05/22/2020 36 AST (U/L) Date Value 05/22/2020 36 Please advise. Thank you. Lauren Hernadez RN documented in this encounter [facility] 02-03-2022 Miscellaneous Notes The following approved medication requests have been transmitted electronically. Requested Prescriptions Signed Prescriptions Disp Refills busPIRone (BUSPAR) 10 mg tablet 90 tablet 1 Sig: Take 1 tablet by mouth three times daily. Authorizing Provider: ABIOLA SHERMAN APRN.CNP Patient calling and asking if Buspar can be increased? Patients that she is planning on stopping life support for her boyfriend next week. Patient asking for increase of medication today. Patient very tearful on phone. Please review and advise, Celine Mcdonald RN Attempted to call patient, no answer, left message for patient to call back. Options for medications that were discussed during office visit was to start an SSRI such as Paxil to help with anxiety. We can increase the mg of BuSpar. Abiola Sherman APRN.CNP Patient calls to let provider know that the medication prescribed at visit for anxiety/depression hasn't made a difference. She is taking the Buspar 5 mg three times daily and hydroxyzine 25 mg 1-2 capsules three times daily as needed. Patient very tearful on phone and asking if she could try the other medication that was discussed at appointment. Patient asking for it to be sent in to [facility] if provider agrees. Patient reports that she is heading back to [place] tomorrow to be with her boyfriend who is still on Life Support at this time so will need an answer today. Please review and advise, Lauren Hernadez RN documented in this encounter [facility] 01-27-2022 Instructions Abiola Sherman APRN.VICTORINO - 01/27/2022 12:00 PM EST Start Buspar 5 mg three times daily. May continue with hydroxyzine. Recommend establishing care with counselor. Follow up 1 month. documented in this encounter [facility] 01-27-2022 History of Present illness Narrative This is a 41 year old female who presents today with: Patient presents with: Acute Visit: increase stress and depression HISTORY OF PRESENT ILLNESS: Yared Stallworth is a 41 year old female. Patient presents with: Acute Visit: increase stress and depression Here in the office to discuss stress. Refers that boyfriend is on life support and she is POA. Having to make the decision to stop life support. Refers that he has had an [place]/Stroke. Boyfriend has been in hospital since December 07. Increased anxiety and stress. Taking Hydroxyzine 25 mg as needed. First medication has not been helpful. Patient is very tearful and crying during this visit. Increased sadness. No SI/HI. PAST MEDICAL HISTORY: PAST MEDICAL HISTORY Diagnosis Date Anemia Avascular necrosis (HCC) left hip. DO NOT PRESCRIBE CONTROLLED SUBSTANCES-See TE 01/05/16 Depression Encounter for insertion of mirena IUD 06/30/2017 heavy menstrual bleeding Kidney stones Multiple sclerosis (HCC) Transverse myelitis (HCC) 2007 PAST SURGICAL HISTORY Procedure Laterality Date APPENDECTOMY 2009 ARTHROSCOPY KNEE DIAGNOSTIC W/WO SYNOVIAL BX SPX 1997 Arthroscopy, knee R knee. LIG/TRNSXJ FLP TUBE ABDL/VAG APPR UNI/BI 2006 Tubal ligation ALLERGIES Naproxen, Neurontin [Gabapentin], and Zolpidem MEDICATIONS Current Outpatient Medications Medication Sig gabapentin (NEURONTIN) 100 mg capsule Take 2 capsules by mouth three times daily for [address] (DEPAKOTE) 250 mg EC tablet Take 1 tablet by mouth twice daily. melatonin 5 mg tablet Take 1 tablet by mouth at bedtime as needed for for insomnia (Sleep). hydrOXYzine pamoate (VISTARIL) 25 mg capsule Take 1-2 capsules by mouth three times daily as needed for anxiety. omeprazole (PRILOSEC) 20 mg capsule Take 1 capsule by mouth daily 30 minutes before breakfast amitriptyline (ELAVIL) 100 mg tablet Take 3 tablets by mouth daily at bedtime. fluticasone (FLONASE) 50 mcg/actuation nasal spray Use 2 Sprays in each nostril once daily. Rinse mouth after use. (Patient not taking: Reported on 09/12/2020 ) ondansetron (ZOFRAN) 4 mg tablet TAKE 1 TABLET BY MOUTH EVERY 8 HOURS NEEDED FOR NAUSEA AND VOMITING dicyclomine (BENTYL) 10 mg capsule THREE TIMES DAILY BEFORE MEALS loperamide (IMODIUM) 2 mg cap(s) DIRECTED (Patient not taking: Reported on 06/27/2020) ferrous sulfate (IRON) 325 mg (65 mg iron) tablet Take 1 tablet by mouth twice daily. fluticasone (FLONASE) 50 mcg/actuation nasal spray Use 1 [place] in each nostril once daily. (Patient not taking: Reported on 09/12/2020 ) No current facility-administered medications for this visit. FAMILY HISTORY Problem Relation Age of Onset Asthma Daughter Asthma Daughter Breast Cancer Paternal Grandmother Cancer Father Diabetes Father Hypertension Father Social History Tobacco Use Smoking status: Never Smokeless tobacco: Never Substance Use Topics Alcohol use: Yes Comment: rare use, New years etc. Drug use: Yes Types: Amphetamines Comment: hx REVIEW OF SYSTEMS GENERAL: No weight loss, malaise or fevers/chills HEENT: Negative for frequent or significant headaches, No changes in hearing or vision. NECK: Negative for lumps, goiter, pain and significant neck swelling RESPIRATORY: Negative for cough, hemoptysis, wheezing, dyspnea or shortness of breath CARDIOVASCULAR: Negative for chest pain, leg swelling, orthopnea, or palpitations GI: No nausea, vomiting, or diarrhea/constipation. No hematochezia/melena. No heartburn or reflux symptoms. : No history of dysuria, frequency or incontinence MUSCULOSKELETAL: Negative for joint pain or swelling. SKIN: Negative for lesions, rash, and itching ENDOCRINE: Negative for cold or heat intolerance, polyuria, polydipsia and goiter NEURO: No history of headaches, syncope, paralysis, seizures or tremors MOOD: + Anxiety/Sadness/Stress EXAM: BP 120/88 Pulse 95 Resp 16 Wt 87.5 kg (193 lb) LMP (LMP Unknown) SpO2 97% BMI 35.30 kg/m PHYSICAL EXAM: General Appearance: Well appearing, alert, in no acute distress, well-hydrated, well nourished. Skin: Skin color, texture, turgor normal, no suspicious rashes or lesions. Head: Normocephalic, no masses, lesions, tenderness or abnormalities. Eyes: Anicteric sclera. Extraocular movements are intact. Lungs: Lungs clear to auscultation. No wheezing, rhonchi, rales. Heart: RRR without murmur, gallop, or rubs. No ectopy. Extremities: No deformities, edema, skin discoloration, clubbing or cyanosis. Good capillary refill. Peripheral Pulses: Normal, Capillary refill <2secs, strong peripheral pulses, Pulses palpable. Neurologic: Gait normal. Sensation grossly intact. Mood: + Tearful, good eye contact, engaged. ASSESSMENT/PLAN: 1. Anxiety with depression - ICD9: 300.4, ICD10: F41.8 (primary diagnosis) - Start BuSpar 5 mg 3 times daily. - May continue with hydroxyzine as needed. - Recommend establishing care with counselor. - Instructed to contact mounter sousaphones at the hospital for further guidance in regards to POA. - BUSPIRONE 5 MG TABLET 2. Stress reaction - ICD9: 308.9, ICD10: F43.0 - Same plan as #1. Follow-up in 1 month or sooner as needed. Discussed treatment plan and patient voices understanding. Patient's questions answered appropriately. Medications and potential side effects were discussed and patient voices understanding. Abiola Sherman APRN.VICTORINO This note was partially generated using Timehop recognition system. Note was reviewed for accuracy. There may be minor misspellings or grammar miscues with MEEP voice recognition. documented in this encounter [facility] 12-16-2021 Miscellaneous Notes OK to refill as ordered Ramon Espinosa MD Patient has been identified by name and date of : Yes Patient phones for refill(s): Requested Prescriptions Pending Prescriptions Disp Refills divalproex DR (DEPAKOTE) 250 mg EC tablet 60 tablet 5 Sig: Take 1 tablet by mouth twice daily. melatonin 5 mg tablet 30 tablet 3 Sig: Take 1 tablet by mouth at bedtime as needed for for insomnia (Sleep). Date of last office visit in primary care: 04/15/21, NOV: not scheduled Last 2 Encounter Wt Readings: Date: Wt: 04/15/2021 72.1 kg (159 lb) 10/22/2020 75.9 kg (167 lb 6.4 oz) Please advise. Thank you. Fela Borjas RN documented in this encounter [facility] 12-16-2021 Miscellaneous Notes OK to refill as ordered Ramon Espinosa MD Patient has been identified by name and date of : Yes Pharmacy phones for refill(s): Requested Prescriptions Pending Prescriptions Disp Refills gabapentin (NEURONTIN) 100 mg capsule [Pharmacy Med Name: gabapentin 100 mg capsule] 180 capsule 2 Sig: Take 2 capsules by mouth three times daily for 90 days. Date of last office visit in primary care: [facility] 04/15/2021 No appointment scheduled Last 2 Encounter Wt Readings: Date: Wt: 04/15/2021 72.1 kg (159 lb) 10/22/2020 75.9 kg (167 lb 6.4 oz) Please advise. Thank you. MITCHEL Mehta documented in this encounter [facility] 10-19-2021 Miscellaneous Notes The following approved medication requests have been transmitted electronically. Pending Prescriptions Disp Refills HYDROXYZINE PAMOATE 25 MG CAPSULE 60 capsule 5 Sig: Take 1-2 capsules by mouth three times daily as needed for anxiety. ALBINA: Yes Clifford Hwang APRN.CNP Patient phones requesting refills as follows: Pending Prescriptions Disp Refills HYDROXYZINE PAMOATE 25 MG CAPSULE 60 capsule 5 Sig: Take 1-2 capsules by mouth three times daily as needed for anxiety. ALBINA: Yes KAILEE-04/15/21 Labs-05/22/20 NOV-none med filled 04/15/21 Please review and advise. Silvana Jaffe LPN documented in this encounter [facility] 09-22-2021 Miscellaneous Notes The following approved medication requests have been transmitted electronically. Signed Prescriptions Disp Refills gabapentin (NEURONTIN) 100 mg capsule 180 capsule 2 Sig: Take 2 capsules by mouth three times daily for 90 days. ALBINA: No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 illness Narrative* Problem Noted Date Resolved Date Impaction of colon 01/12/2017 01/12/2017 Multiple sclerosis 05/22/2020 documented as of this encounter (statuses as of 10/19/2021) [place] [address]-01-2017 History of Past illness Narrative* Problem Noted Date Resolved Date Impaction of colon 01/12/2017 01/12/2017 Multiple sclerosis 05/22/2020 documented as of this encounter (statuses as of 12/16/2021) [facility] History of Past illness Narrative* Problem Noted Date Resolved Date Impaction of colon 01/12/2017 01/12/2017 Multiple sclerosis 05/22/2020 documented as of this encounter (statuses as of 12/16/2021) [place] [address]-01-2017 History of Past illness Narrative* Problem Noted Date Resolved Date Impaction of colon 01/12/2017 01/12/2017 Multiple sclerosis 05/22/2020 documented as of this encounter (statuses as of 01/27/2022) [address]01[address]2017 History of Past illness Narrative* Problem Noted Date Resolved Date Impaction of colon 01/12/2017 01/12/2017 Multiple sclerosis 05/22/2020 documented as of this encounter (statuses as of 02/03/2022) [place] [address]-01-2017 History of Past illness Narrative* Problem Noted Date Resolved Date Impaction of colon 01/12/2017 01/12/2017 Multiple sclerosis 05/22/2020 documented as of this encounter (statuses as of 02/25/2022) [facility] History of Past illness Narrative* Problem Noted Date Resolved Date Impaction of colon 01/12/2017 01/12/2017 Multiple sclerosis 05/22/2020 documented as of this encounter (statuses as of 03/26/2022) [facility]2017 History of Past illness Narrative* Problem Noted Date Resolved Date Impaction of colon 01/12/2017 01/12/2017 Multiple sclerosis 05/22/2020 documented as of this encounter (statuses as of 04/05/2022) [facility] History of Past illness Narrative* Problem Noted Date Resolved Date Impaction of colon 01/12/2017 01/12/2017 Multiple sclerosis 05/22/2020 documented as of this encounter (statuses as of 05/03/2022) [facility] History of Past illness Narrative* Problem Noted Date Resolved Date Impaction of colon 01/12/2017 01/12/2017 Multiple sclerosis 05/22/2020 documented as of this encounter (statuses as of 05/06/2022) [place] [address]-01-2017 History of Past illness Narrative* Problem Noted Date Resolved Date Impaction of colon 01/12/2017 01/12/2017 Multiple sclerosis 05/22/2020 documented as of this encounter (statuses as of 05/11/2022) [facility] History of Past illness Narrative* Problem Noted Date Resolved Date Impaction of colon 01/12/2017 01/12/2017 Multiple sclerosis 05/22/2020 documented as of this encounter (statuses as of 05/14/2022) [facility] History of Past illness Narrative* Problem Noted Date Resolved Date Impaction of colon 01/12/2017 01/12/2017 Multiple sclerosis 05/22/2020 documented as of this encounter (statuses as of 05/20/2022) [place] [address]-01-2017 History of Past illness Narrative* Problem Noted Date Resolved Date Impaction of colon 01/12/2017 01/12/2017 Multiple sclerosis 05/22/2020 documented as of this encounter (statuses as of 05/31/2022) [place] [address]-01-2017 History of Past illness Narrative* Problem Noted Date Resolved Date Impaction of colon 01/12/2017 01/12/2017 Multiple sclerosis 05/22/2020 documented as of this encounter (statuses as of 06/18/2022) [place] [address]-01-2017 History of Past illness Narrative* Problem Noted Date Resolved Date Impaction of colon 01/12/2017 01/12/2017 Multiple sclerosis 05/22/2020 documented as of this encounter (statuses as of 07/08/2022) [place] [address]-01-2017 History of Past illness Narrative* Problem Noted Date Resolved Date Impaction of colon 01/12/2017 01/12/2017 Multiple sclerosis 05/22/2020 documented as of this encounter (statuses as of 07/16/2022) [address]01[address]2017 History of Past illness Narrative* Problem Noted Date Resolved Date Impaction of colon 01/12/2017 01/12/2017 Multiple sclerosis 05/22/2020 documented as of this encounter (statuses as of 07/24/2022) [place] [address]-01-2017 History of Past illness Narrative* Problem Noted Date Resolved Date Impaction of colon 01/12/2017 01/12/2017 Multiple sclerosis 05/22/2020 documented as of this encounter (statuses as of 08/24/2022) [facility] History of Past illness Narrative* Problem Noted Date Resolved Date Impaction of colon 01/12/2017 01/12/2017 Multiple sclerosis 05/22/2020 documented as of this encounter (statuses as of 09/14/2022) [facility] History of Past illness Narrative* Problem Noted Date Diagnosed Date Resolved Date Impaction of colon 01/12/2017 7 Multiple sclerosis 1 documented as of this encounter (statuses as of 09/21/2022) [facility] History of Past illness Narrative* Problem Noted Date Diagnosed Date Resolved Date Impaction of colon 01/12/2017 7 Multiple sclerosis 1 documented as of this encounter (statuses as of 10/08/2022) [facility] History of Past illness Narrative* Problem Noted Date Diagnosed Date Resolved Date Impaction of colon 01/12/2017 7 Multiple sclerosis 1 documented as of this encounter (statuses as of 10/22/2022) [facility] History of Past illness Narrative* Problem Noted Date Diagnosed Date Resolved Date Impaction of colon 01/12/2017 7 Multiple sclerosis 1 documented as of this encounter (statuses as of 10/29/2022) [facility]2017 History of Past illness Narrative* Problem Noted Date Diagnosed Date Resolved Date Impaction of colon 01/12/2017 7 Multiple sclerosis 1 documented as of this encounter (statuses as of 11/02/2022) [facility]2017 History of Past illness Narrative* Problem Noted Date Diagnosed Date Resolved Date Impaction of colon 01/12/2017 7 Multiple sclerosis 1 documented as of this encounter (statuses as of 02/11/2023) [facility] History of Past illness Narrative* Problem Noted Date Diagnosed Date Resolved Date Impaction of colon 01/12/2017 7 Multiple sclerosis 1 documented as of this encounter (statuses as of 02/15/2023) [facility]2017 History of Past illness Narrative* Problem Noted Date Diagnosed Date Resolved Date Impaction of colon 01/12/2017 7 Multiple sclerosis 1 documented as of this encounter (statuses as of 03/21/2023) [facility] History of Past illness Narrative* Problem Noted Date Diagnosed Date Resolved Date Impaction of colon 01/12/2017 7 Multiple sclerosis 1 documented as of this encounter (statuses as of 05/14/2023) [facility] [place] [facility] Diagnosis Seizure (HCC) Other convulsions documented in this encounter [employer] Phone: Evaluation note* Diagnosis Sleep difficulties Sleep disturbance, unspecified documented in this encounter [facility] [place] [facility]* Diagnosis Depression, unspecified depression type Anger Other signs and symptoms involving emotional state [facility] this encounter [facility] [place] [facility] Diagnosis Sleep difficulties Sleep disturbance, unspecified documented in this encounter [facility] [place] [facility]* Diagnosis Anxiety with depression- Primary Stress reaction Unspecified acute reaction to stress [facility] [place] [facility] Diagnosis Anxiety with depression- Primary documented in this encounter [facility] [place] [facility]* Diagnosis Relapsing remitting multiple sclerosis (HCC)- Primary Multiple sclerosis Seizures (HCC) Other convulsions documented in this encounter [facility] [place] [facility]* Diagnosis Depression, unspecified depression type Anger Other signs and symptoms involving emotional state [facility] Acute vaginitis- Primary Vaginitis and vulvovaginitis, unspecified [facility] this encounter [facility] [place] [facility]* Diagnosis 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 Elevated glucose Other abnormal glucose [facility] Diagnosis Sleep difficulties Sleep disturbance, unspecified documented in this encounter [facility] [place] [facility]* Diagnosis Encounter for screening mammogram for breast cancer documented in this encounter [facility] [place] [facility]* Diagnosis Encounter for removal of sutures- Primary Visit for wound check Encounter for other specified aftercare [facility] Diagnostic Procedure Only (Routine) - Pending Review Specialty Diagnoses / Procedures Referred By Navi michelle Referred To Contact [facility] Diagnoses Encounter for screening mammogram for breast cancer Procedures AMAN SCREENING SCREENING MAMMOGRAPHY BI 2-VIEW BREAST INC CAD Ramon Espinosa MD [address] [place] [address] [facility] [address] [place] [address] Referral ID Status Reason Start Date Expiration Date Visits Requested Visits Authorized [id number] Pending Review Auto-Generat ed Referral 03/16/2023 04/14/2024 1 1 [facility] Summary Purpose Family History No Family History Records FoundNo Family History Records FoundNo Family History Records FoundNo Family History Records FoundNo Family History Records FoundNo Family History Records FoundNo Family History Records FoundNo Family History Records Found Advance Directives No Advanced Directives Records FoundDocuments on File Type Date 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 Advance Directives and Living Will Power of Aboriginal 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 Latest Code Status on File Code Status Date Activated Date Inactivated Comments Full Code 10/13/2019 9:37 AM Full Code 03/23/2019 6:32 AM 03/25/2019 12:26 AM Latest Code Status on File Code Status Date Activated Date Inactivated Comments Full Code 03/23/2019 6:32 AM Documents on File 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 Date 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 Advance Directive(s) 01/11/2017 10:40 PM Reason for Referral Specialty Diagnoses / Procedures Referred By Navi michelle Referred To Contact Neurology Diagnoses Relapsing remitting multiple sclerosis (HCC) Seizures (HCC) Procedures CONSULT TO NEUROLOGY OFFICE/OUTPATIENT [facility] 60-74 MINUTES Clifford Hwang, BAKARI.RECYCLING COORDINATOR [address] [place] [address] Referral ID Status Reason Start Date Expiration Date Visits Requested Visits Authorized [id number] Pending Review PCP Requested Referral 05/14/2022 05/14/2023 1 1 Additional Source Comments INFORMATION SOURCE (unrecogn ized section and content) DATE CREATED AUTHOR AUTHOR'S ORGANIZ ATION 09/09/2017 [facility] DATE CREATED AUTHOR AUTHOR'S ORGANIZ ATION 04/12/2018 [facility] ([place]) DATE CREATED AUTHOR AUTHOR'S ORGANIZ ATION 03/28/2019 [facility] DATE CREATED AUTHOR AUTHOR'S ORGANIZ ATION 10/22/2019 [facility] DATE CREATED AUTHOR AUTHOR'S ORGANIZ ATION 05/07/2022 [facility] DATE CREATED AUTHOR AUTHOR'S ORGANIZ ATION 08/20/2022 [facility] DATE CREATED AUTHOR AUTHOR'S ORGANIZ ATION 05/16/2023 [facility] Source Comments (unrecognize d section and content) In the event this informatio n is protected by the Federal Confidentiality of Alcohol and Drug Abuse Patient Records regulations: The Federal rules restrict any use of the information to criminally investigate or prosecute any alcohol or drug abuse patient.[facility] the event this information is protected by the Federal Confidentiality of Alcohol and Drug Abuse Patient Records regulations: The Federal rules restrict any use of the information to criminally investigate or prosecute any alcohol or drug abuse patient.[facility] the event this information is protected by the Federal Confidentiality of Alcohol and Drug Abuse Patient Records regulations: The Federal rules restrict any use of the information to criminally investigate or prosecute any alcohol or drug abuse patient.[facility] the event this information is protected by the Federal Confidentiality of Alcohol and Drug Abuse Patient Records regulations: The Federal rules restrict any use of the information to criminally investigate or prosecute any alcohol or drug abuse patient.[facility] Center[facility] the event this information is protected by the Federal Confidentiality of Alcohol and Drug Abuse Patient Records regulations: The Federal rules restrict any use of the information to criminally investigate or prosecute any alcohol or drug abuse patient.[facility] Center[facility] the event this information is protected by the Federal Confidentiality of Alcohol and Drug Abuse Patient Records regulations: The Federal rules restrict any use of the information to criminally investigate or prosecute any alcohol or drug abuse patient.[facility] Center[facility] the event this information is protected by the Federal Confidentiality of Alcohol and Drug Abuse Patient Records regulations: The Federal rules restrict any use of the information to criminally investigate or prosecute any alcohol or drug abuse patient.[facility] CenterIn the event this information is protected by the Federal Confidentiality of Alcohol and Drug Abuse Patient Records regulations: The Federal rules restrict any use of the information to criminally investigate or prosecute any alcohol or drug abuse patient.[facility] Center[facility] the event this information is protected by the Federal Confidentiality of Alcohol and Drug Abuse Patient Records regulations: The Federal rules restrict any use of the information to criminally investigate or prosecute any alcohol or drug abuse patient.[facility] Center[facility] the event this information is protected by the Federal Confidentiality of Alcohol and Drug Abuse Patient Records regulations: The Federal rules restrict any use of the information to criminally investigate or prosecute any alcohol or drug abuse patient.[facility] Center[facility] the event this information is protected by the Federal Confidentiality of Alcohol and Drug Abuse Patient Records regulations: The Federal rules restrict any use of the information to criminally investigate or prosecute any alcohol or drug abuse patient.[facility] Center[facility] the event this information is protected by the Federal Confidentiality of Alcohol and Drug Abuse Patient Records regulations: The Federal rules restrict any use of the information to criminally investigate or prosecute any alcohol or drug abuse patient.[facility] Center[facility] the event this information is protected by the Federal Confidentiality of Alcohol and Drug Abuse Patient Records regulations: The Federal rules restrict any use of the information to criminally investigate or prosecute any alcohol or drug abuse patient.[facility] Center[facility] the event this information is protected by the Federal Confidentiality of Alcohol and Drug Abuse Patient Records regulations: The Federal rules restrict any use of the information to criminally investigate or prosecute any alcohol or drug abuse patient.[facility] Center[facility] the event this information is protected by the Federal Confidentiality of Alcohol and Drug Abuse Patient Records regulations: The Federal rules restrict any use of the information to criminally investigate or prosecute any alcohol or drug abuse patient.[facility] Center[facility] the event this information is protected by the Federal Confidentiality of Alcohol and Drug Abuse Patient Records regulations: The Federal rules restrict any use of the information to criminally investigate or prosecute any alcohol or drug abuse patient.[facility] CenterIn the event this information is protected by the Federal Confidentiality of Alcohol and Drug Abuse Patient Records regulations: The Federal rules restrict any use of the information to criminally investigate or prosecute any alcohol or drug abuse patient.[facility] CenterIn the event this information is protected by the Federal Confidentiality of Alcohol and Drug Abuse Patient Records regulations: The Federal rules restrict any use of the information to criminally investigate or prosecute any alcohol or drug abuse patient.[facility] CenterIn the event this information is protected by the Federal Confidentiality of Alcohol and Drug Abuse Patient Records regulations: The Federal rules restrict any use of the information to criminally investigate or prosecute any alcohol or drug abuse patient.[facility] CenterIn the event this information is protected by the Federal Confidentiality of Alcohol and Drug Abuse Patient Records regulations: The Federal rules restrict any use of the information to criminally investigate or prosecute any alcohol or drug abuse patient.[facility] CenterIn the event this information is protected by the Federal Confidentiality of Alcohol and Drug Abuse Patient Records regulations: The Federal rules restrict any use of the information to criminally investigate or prosecute any alcohol or drug abuse patient.[facility] CenterIn the event this information is protected by the Federal Confidentiality of Alcohol and Drug Abuse Patient Records regulations: The Federal rules restrict any use of the information to criminally investigate or prosecute any alcohol or drug abuse patient.[facility] ClinicIn the event this information is protected by the Federal Confidentiality of Alcohol and Drug Abuse Patient Records regulations: The Federal rules restrict any use of the information to criminally investigate or prosecute any alcohol or drug abuse patient.[facility] CenterIn the event this information is protected by the Federal Confidentiality of Alcohol and Drug Abuse Patient Records regulations: The Federal rules restrict any use of the information to criminally investigate or prosecute any alcohol or drug abuse patient.[facility] CenterIn the event this information is protected by the Federal Confidentiality of Alcohol and Drug Abuse Patient Records regulations: The Federal rules restrict any use of the information to criminally investigate or prosecute any alcohol or drug abuse patient.[facility] CenterIn the event this information is protected by the Federal Confidentiality of Alcohol and Drug Abuse Patient Records regulations: The Federal rules restrict any use of the information to criminally investigate or prosecute any alcohol or drug abuse patient.[facility] CenterIn the event this information is protected by the Federal Confidentiality of Alcohol and Drug Abuse Patient Records regulations: The Federal rules restrict any use of the information to criminally investigate or prosecute any alcohol or drug abuse patient.[facility] CenterIn the event this information is protected by the Federal Confidentiality of Alcohol and Drug Abuse Patient Records regulations: The Federal rules restrict any use of the information to criminally investigate or prosecute any alcohol or drug abuse patient.[facility] CenterIn the event this information is protected by the Federal Confidentiality of Alcohol and Drug Abuse Patient Records regulations: The Federal rules restrict any use of the information to criminally investigate or prosecute any alcohol or drug abuse patient.[facility] CenterIn the event this information is protected by the Federal Confidentiality of Alcohol and Drug Abuse Patient Records regulations: The Federal rules restrict any use of the information to criminally investigate or prosecute any alcohol or drug abuse patient.[facility] CenterIn the event this information is protected by the Federal Confidentiality of Alcohol and Drug Abuse Patient Records regulations: The Federal rules restrict any use of the information to criminally investigate or prosecute any alcohol or drug abuse patient.[facility] Center[facility] the event this information is protected by the Federal Confidentiality of Alcohol and Drug Abuse Patient Records regulations: The Federal rules restrict any use of the information to criminally investigate or prosecute any alcohol or drug abuse patient.[facility] Center[facility] the event this information is protected by the Federal Confidentiality of Alcohol and Drug Abuse Patient Records regulations: The Federal rules restrict any use of the information to criminally investigate or prosecute any alcohol or drug abuse patient.[facility] CenterIn the event this information is protected by the Federal Confidentiality of Alcohol and Drug Abuse Patient Records regulations: The Federal rules restrict any use of the information to criminally investigate or prosecute any alcohol or drug abuse patient.[facility] Reason for Visit (unrecogniz ed section and content) Reason Comments Care Coordination Medical Record Review Outreach Reason Onset Date Comments Refill Request 08/26/2021 Reason Onset Date Comments Refill Request 08/27/2021 Reason Onset Date Comments Refill Request 09/22/2021 Reason Comments Refill Request Reason Onset Date Comments Refill Request Refill Request 12/16/2021 Reason Onset Date Comments Refill Request 12/16/2021 Reason Comments Acute Visit increase stress and depression Reason Comments Medication Question Reason Onset Date Comments Refill Request 02/25/2022 Reason Onset Date Comments Refill Request 03/26/2022 Reason Onset Date Comments Refill Request 04/05/2022 Reason Onset Date Comments Refill Request 05/03/2022 Reason Comments Patient Question Reason Onset Date Comments Medication Question 05/10/2022 Reason Comments Follow Up Discuss medication Reason Comments Medication Problem Reason Comments Letter Reason Comments Letter for welfare Reason Onset Date Comments Refill Request 06/30/2022 Refill Request 07/15/2022 Reason Onset Date Comments Refill Request 07/23/2022 Reason Onset Date Comments Refill Request 08/23/2022 Reason Comments Vaginal Problem Yeast infection x 2- 3 days Reason Comments Results Reason Comments Appointment Reason Comments Future Appointment [place], [place], Any Reason Comments UTI Reason Comments Suture Removal 4 sutures in forehea d x6 days, [facility] Care Teams (unrecognized sec tion and content) Classifying Machine Operator Relationship Specialty Start Date End Date Adelso Ortiz DO [address] [facility] [place] [address] PCP - General Internal Medicine 10/03/19 Luisa Anderson, AUTOMOTIVE POWER ELECTRONICS ENGINEER-RECYCLING COORDINATOR [address] [place] [address] [address] CUTTER Obstetrics/Gynecology 12/18/19 Classifying Machine Operator Relationship Specialty Start Date End Date Ramon Espinosa MD [address] [place] [address] PCP - General Family Practice 07/24/20 Classifying Machine Operator Relationship Specialty Start Date End Date Ramon Espinosa MD [address] [place] [address] PCP - General Family Practice 07/24/20 Classifying Machine Operator Relationship Specialty Start Date End Date Ramon Espinosa MD [address] [place] [address] PCP - General Family Medicine 07/24/20 Classifying Machine Operator Relationship Specialty Start Date End Date Ramon Espinosa MD [address] [place] [address] PCP - General Family Medicine 07/24/20 Classifying Machine Operator Relationship Specialty Start Date End Date Ramon Espinosa MD [address] [place] [address] PCP - General Family Medicine 07/24/20 Classifying Machine Operator Relationship Specialty Start Date End Date Ramon Espinosa MD [address] [place] [address] PCP - General Family Medicine 07/24/20 Classifying Machine Operator Relationship Specialty Start Date End Date Michelle Lerner MD [address] [facility] [place] [address] PCP - General 09/08/21 Luisa Anderson, AUTOMOTIVE POWER ELECTRONICS ENGINEER-RECYCLING COORDINATOR [address] [place] [address] [address] CUTTER Obstetrics/Gynecology 12/18/19 Classifying Machine Operator Relationship Specialty Start Date End Date Ramon Espinosa MD [address] [place] [address] PCP - General Family Medicine 07/24/20 Classifying Machine Operator Relationship Specialty Start Date End Date Michelle Lerner MD [address] [facility] [place] [address] PCP - General 09/08/21 Luisa Anderson, AUTOMOTIVE POWER ELECTRONICS ENGINEER-RECYCLING COORDINATOR [address] [place] [address] [address] CUTTER Obstetrics/Gynecology 12/18/19 Classifying Machine Operator Relationship Specialty Start Date End Date Ramon Espinosa MD [address] [place] [address] PCP - General Family Medicine 07/24/20 Classifying Machine Operator Relationship Specialty Start Date End Date Ramon Espinosa MD [address] [place] [address] PCP - General Family Medicine 07/24/20 Classifying Machine Operator Relationship Specialty Start Date End Date Ramon Espinosa MD [address] [place] [address] PCP - General Family Medicine 07/24/20 Classifying Machine Operator Relationship Specialty Start Date End Date Ramon Espinosa MD [address] [place] [address] PCP - General Family Medicine 07/24/20 Classifying Machine Operator Relationship Specialty Start Date End Date Michelle Lerner MD [address] [place] [address] [place] [address] PCP - General 09/08/21 Luisa Anderson, AUTOMOTIVE POWER ELECTRONICS ENGINEER-RECYCLING COORDINATOR [address] [place], [place] [address] CUTTER Obstetrics/Gynecology 12/18/19 Classifying Machine Operator Relationship Specialty Start Date End Date Ramon Espinosa MD [address] [place] [address] PCP - General Family Medicine 07/24/20 Classifying Machine Operator Relationship Specialty Start Date End Date Ramon Espinosa MD [address] [facility] [place] [address] PCP - General Family Medicine 07/24/20 Classifying Machine Operator Relationship Specialty Start Date End Date Ramon Espinosa MD [address] [facility] [place] [address] PCP - General Family Medicine 07/24/20 Classifying Machine Operator Relationship Specialty Start Date End Date Ramon Espinosa MD [address] [facility] [place] [address] PCP - General Family Medicine 07/24/20 Classifying Machine Operator Relationship Specialty Start Date End Date Ramon Espinosa MD [address] [facility] [place] [address] PCP - General Family Medicine 07/24/20 Classifying Machine Operator Relationship Specialty Start Date End Date Ramon Espinosa MD [address] [facility] [place] [address] PCP - General Family Medicine 07/24/20 Classifying Machine Operator Relationship Specialty Start Date End Date Ramon Espinosa MD [address] [place] [address] PCP - General Family Medicine 07/24/20 FOR RECORDS PERTAINING TO PATIENTS WHO ARE OR HAVE BEEN ENROLLED IN A CHEMICAL DEPENDENCY/SUBSTANCEABUSE PROGRAM, SOME INFORMATION MAY BE OMITTED. This clinical summary was aggregated from multiple sources. Caution should be exercised in using it in the provision of clinical care. This summary normalizes information from multiple sources, and as a consequence, information in this document may materially change the coding, format and clinical context of patient data. In addition, data may be omitted in some cases. CLINICAL DECISIONS SHOULD BE BASED ON THE PRIMARY CLINICAL RECORDS. [facility] [employer] [facility]. provides no warranty or guarantee of the accuracy or completeness of information in this document.
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
== END 2023-05-16 19:48 | disposition home or self-care (01) ==
PROVIDERS: Emergency Provider Emergency Medicine; PCP Family Medicine; Visit Provider Emergency Medicine
DX: S02.609A Fracture of mandible, unspecified, initial encounter for closed fracture (principal); W10.9XXA Fall (on) (from) unspecified stairs and steps, initial encounter
CPT/HCPCS: 70450; 70486; 71250; 72125; 74176; 80048; 81001; 81025; 85025; 96374; 99283; A4216

== ENCOUNTER 2023-05-18 15:06 | Emergency (ER) | payer MEDICAID, SELFPAY ==
[2023-05-18 15:09] VITALS: BP 129/70; PULSE 101; RESP 18; TEMP 35.5; O2SAT 99; BMI 26.9
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
[2023-05-18] MEDS: Oxycodone/Apap 5/325 Tablet PO (15:51)
== END 2023-05-18 16:02 | disposition home or self-care (01) ==
PROVIDERS: Emergency Provider Emergency Medicine; PCP Family Medicine; Visit Provider Emergency Medicine
DX: S02.609A Fracture of mandible, unspecified, initial encounter for closed fracture (principal); Y04.8XXA Assault by other bodily force, initial encounter
CPT/HCPCS: 99283

== ENCOUNTER 2023-06-11 23:46 | Emergency (ER) | payer MEDICAID, SELFPAY ==
[2023-06-11 23:47] VITALS: BP 117/69; PULSE 107; RESP 19; TEMP 36.8; O2SAT 97; BMI 28.6
[2023-06-11] MEDS: Lorazepam 2 MG/ML WCH Syringe IV (23:48)
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
[2023-06-12 00:32] LABS: Absolute Lymphocyte Count 4.12 X10^3/uL (0.83-4.51); Absolute Neutrophil Count 4.2 X10^3/uL (2.0-7.7); Basophil# 0.04 X10^3/uL; Basophil% 0.4 % (0-1); Eosinophil# 0.13 X10^3/uL; Eosinophils% 1.4 % (0-5); Hematocrit 36.5 % (37-47); Hemoglobin 11.8 g/dL (12.0-15.0); Lymphocyte # 4.12 X10^3/ul (0.83-4.51); Lymphocyte % 43.1 % (19-41); Mean Corp Hgb Conc 32.3 g/dL (32-36); Mean Corpuscular Hgb 31.7 pg (27.0-32.0); Mean Corpuscular Volume 98.1 fL (81-99); Mean Platelet Vol. 9.6 fl (6.2-12.0); Monocyte# 1.01 X10^3/uL; Monocyte% 10.6 % (0-10); NRBC Flagged by Analyzer 0 % (0-5); Neutrophil # 4.18 X10^3/uL (2.7-7.7); Neutrophil % 43.8 % (47-70); Platelet Count 398 K/mm3 (150-450); RBC Distribution Width CV 12.6 % (11.6-14.6); RBC Distribution Width SD 45.4 fl (35.1-43.9); Red Blood Count 3.72 M/mm3 (4.2-5.4); White Blood Count 9.6 K/mm3 (4.4-11.0)
[2023-06-12 00:39] LABS: Anion Gap 8 (5-15); BUN 38 mg/dL (7-18); BUN/Creat Ratio 40.6 RATIO (10-20); Calcium,Total 8.9 mg/dL (8.5-10.1); Chloride 104 mmol/L (98-107); Creatinine, Serum 0.94 mg/dL (0.55-1.02); EST Glomerular Filtration Rate 69 mL/min (>60); Est Glom Filt Rate - Afr Amer 84 mL/min (>60); Estimated Creatinine Clearance 71.22 ml/min; Glucose 154 mg/dL (74-106); Magnesium 2.4 mg/dL (1.6-2.6); Potassium 3.7 mmol/L (3.5-5.1); Sodium Level 137 mmol/L (136-145)
[2023-06-12 00:41] LABS: Internal QC Validated? YES +Cl - CLEAR BKGD; Pregnancy, Serum, hCG Quali. NEGATIVE Negative
[2023-06-12 00:47] VITALS: BP 94/60; PULSE 98; RESP 16; O2SAT 93
[2023-06-12 00:49] LABS: Lactic Acid 5.3 mmol/L (0.4-1.9)
--- NOTE | 2023-06-12 00:52 | CT_ITS ---
STUDY: CT BRAIN WITHOUT CONTRAST REASON FOR EXAM: Female, 43 years old. Seizure activity RADIATION DOSAGE (If Supplied By Facility): CTDIvol = ( 44.99 ) mGy, DLP = ( 829.85 ) mGycm TECHNIQUE: Transaxial CT imaging of the brain was performed without administration of intravenous contrast material. Individualized dose optimization techniques were used for this CT. COMPARISON: No relevant priors. FINDINGS: Normal soft tissue structures. Normal calvarium. Normal size ventricles and extra-axial spaces for the patient''s age. Normal white matter tracts of the cerebral hemispheres. Normal basal ganglia and thalami. Normal brainstem. Normal cerebellum. There is no intracranial hemorrhage. There are no findings of an acute ischemic infarction. Normal visualized paranasal sinuses. CT/Brain/Head without Contrast IMPRESSION: Normal unenhanced CT scan of the brain. Electronically Signed: Demetrio Lazcano MD at 2:52 EDT ,
[2023-06-12 01:00] VITALS: BP 92/52; PULSE 100; RESP 18; O2SAT 96
[2023-06-12] MEDS: 0.9% Normal Saline (1000mL) 1,000 ML 999 ML IV ×2 (01:13→02:02)
[2023-06-12] MEDS: levETIRAcetam IV 1,000 MG/100 ML BAG 400 MG IV (01:13)
[2023-06-12 01:20] LABS: Alcohol, Blood (Medical)-Serum < 3.0 mg/dL
[2023-06-12 01:49] LABS: Amphetamine Urine VISTA NEGATIVE (<1000 ng/mL); Barbiturate Urine VISTA NEGATIVE (< 200 ng/mL); Benzodiazepine Urine VISTA NEGATIVE (< 200 ng/mL); Cocaine Urine VISTA NEGATIVE (< 300 ng/mL); Ecstacy Urine VISTA NEGATIVE (< 500 ng/mL); Methadone Urine VISTA NEGATIVE (< 300 ng/mL); PCP Urine VISTA NEGATIVE (< 25 ng/mL); THC Urine VISTA NEGATIVE (< 50 ng/mL); Vista UDS pH Range 5
[2023-06-12 02:00] VITALS: BP 98/58; PULSE 94; RESP 13; O2SAT 91
[2023-06-12 02:40] LABS: LDH 143 U/L (84-246); Prolactin 87.4 ng/mL
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
[2023-06-12 04:17] LABS: Reflex Lactate? Y
[2023-06-12] MEDS: Ondansetron 4 MG/2 ML Vial IV (04:38)
[2023-06-12 04:42] VITALS: BP 105/46; PULSE 94; RESP 16; RESP 18; TEMP 36.9; O2SAT 96; O2SAT 98
[2023-06-12 04:57] LABS: Lactic Acid 1.4 mmol/L (0.4-1.9)
== END 2023-06-12 04:54 | disposition home or self-care (01) ==
PROVIDERS: Emergency Provider Emergency Medicine; PCP Family Medicine; Visit Provider Emergency Medicine
DX: R56.9 Unspecified convulsions (principal); G35 Multiple sclerosis; F41.9 Anxiety disorder, unspecified; F32.A Depression, unspecified
CPT/HCPCS: 70450; 80048; 80307; 80320; 83605; 83615; 83735; 84146; 84703; 85025; 96365; 96375; 99284; J7030; J7050; A4216; G0480; J2405

== ENCOUNTER 2023-07-08 12:18 | Emergency (ER) | payer MEDICAID, SELFPAY ==
[2023-07-08 12:19] VITALS: BP 116/99; PULSE 89; RESP 14; TEMP 35.9; O2SAT 98; BMI 27.1
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
[2023-07-08 13:17] VITALS: BP 126/72; PULSE 77; RESP 16; TEMP 36.6; O2SAT 97
== END 2023-07-08 13:18 | disposition home or self-care (01) ==
PROVIDERS: Emergency Provider Emergency Medicine; PCP Family Medicine; Visit Provider Emergency Medicine
DX: R68.84 Jaw pain (principal); G35 Multiple sclerosis
CPT/HCPCS: 99282

== ENCOUNTER 2023-08-06 23:18 | Emergency (ER) | payer MEDICAID, SELFPAY ==
[2023-08-06 23:19] VITALS: BP 128/61; PULSE 79; RESP 16; TEMP 36; O2SAT 100; BMI 27.6
--- NOTE | 2023-08-07 00:04 | EX.ED.UPPERE ---
HPI History of Present Illness Chief Complaint: Upper Extremity Injury Informant: patient Narrative Narrative: Patient is a 43-year-old female with past medical history of MS as well as anxiety and depression and seizure disorder. She states that she has been noticing increased pain and burning/tingling in her bilateral arms. She denies any trauma. She states that [facility] and inform them of the increasing symptoms and with this was advised to come in for evaluation [facility] Medical History GERD (gastroesophageal reflux disease) IUD (intrauterine device) in place Multiple sclerosis Seizures Transverse myelitis Home Medications ?Medication ?Instructions ?Recorded ?Last Taken ?Type amitriptyline 100 mg tablet 300 mg PO QHS sleep 04/02/18 01/29/20 History ondansetron 4 mg disintegrating 4 mg PO Q8H PRN PRN Nausea ##10 01/21/19 Unknown Rx tablet divalproex 250 mg tablet,delayed 500 mg (2 x 250 mg) PO BIDCM ##60 02/05/20 Unknown Rx release melatonin 3 mg tablet 3 mg PO QHS PRN PRN Insomnia ##30 02/05/20 Unknown Rx gabapentin 100 mg capsule 200 mg PO TID 06/12/20 Unknown History hydroxyzine pamoate 25 mg capsule 25 - 50 mg PO TID 09/11/20 Unknown History promethazine 25 mg tablet 25 mg PO Q6H PRN PRN Nausea #10 06/22/21 Unknown Rx TABLETS diphenoxylate-atropine 2.5 1 tab PO 4X/DAY PRN PRN diarrhea 5 06/25/22 Unknown Rx mg-0.025 mg tablet (Lomotil) days #20 tabs ferrous sulfate 325 mg (65 mg 325 mg PO BID 05/06/23 Unknown History iron) tablet (FeroSul) oxycodone-acetaminophen 5 mg-325 1 tab PO Q6H PRN pain 5 days #20 05/18/23 Unknown Rx mg tablet (Percocet) tabs penicillin V potassium 500 mg 500 mg PO TID #30 tabs 05/18/23 Unknown Rx tablet oxycodone-acetaminophen 5 mg-325 1 tab PO Q6H PRN pain 3 days #12 08/07/23 Unknown Rx mg tablet (Percocet) tabs prednisone 20 mg tablet 40 mg (2 x 20 mg) PO DAILY 5 days 08/07/23 Unknown Rx #10 tabs Allergy/AdvReac Type Severity Reaction Status Date / Time naproxen (From Naprosyn) Allergy Hives Verified 08/06/23 23:21 Surgical History Hx of appendectomy Hx of elbow surgery Hx of tubal ligation Social History Smoking Status: Never smoker substance use type: amphetamines ROS ROS ED Constitutional Constitutional ED: Denies chills or fever(s) ENT ENT ED: Denies sore throat Cardiovascular Cardiovascular: Denies chest pain Respiratory/Chest Respiratory/Chest: Denies cough or dyspnea Gastrointestinal Gastrointestinal: Denies abdominal pain, diarrhea, nausea or vomiting Genitourinary Genitourinary ED: Denies dysuria Musculoskeletal Musculoskeletal: Reports other Details: Bilateral arm pain ; Denies neck pain Integumentary Denies rash Neurologic Neurologic: Reports paresthesias; Denies headache(s) Psychiatric Psychiatric: Reports anxiety and depression Hematologic/Lymphatic Hematologic/Lymphatic: Denies easy bleeding or easy bruising EXAM Physical Exam Const Vital Signs: 08/06/23 23:19 Temperature 96.8 F L Temperature Source Temporal Pulse Rate 79 Respiratory Rate 16 Blood Pressure 128/61 H Blood Pressure Mean 83 Pulse Ox 100 Oxygen Delivery Method Room Air Positive well nourished and well developed General Appearance ED: well developed HEENT HEENT Narrative: Normocephalic atraumatic No signs of infection in the posterior pharynx Eyes PERRL and EOMs intact bilaterally Eyes Narrative: No scleral icterus noted Neck supple Neck Narrative: No bony deformity or step-off of the cervical spine no midline tenderness to palpation Negative Spurling sign bilaterally There is mild bilateral paracervical tension and spasm noted Chest Wall palpation of chest normal Resp normal respiratory effort and clear to auscultation bilaterally Cardio regular rate and regular rhythm Cardio Narrative: Radial and carotid pulses are equal and symmetric Back/Spine Back/Spine Narrative: No bony deformity or step-off of the thoracic or lumbar spine no midline tenderness to palpation Extremity Extremity Narrative: Bilateral upper extremities are neurovascularly intact; AIN/PIN are intact and normal No obvious bony deformity or joint effusions bilaterally No overlying soft tissue changes to suggest trauma or infection Capillary refills less than 3 seconds bilaterally Patient reports severe pain with any type of light touch of either arm Neuro oriented x3, CN's II-XII intact bilaterally, moves all extremities and no focal motor deficits Sensorium / Orientation: alert Motor Exam: strength 5/5 throughout Psych Psych Narrative: Patient has a nervous/anxious affect Mood & Affect: Negative for anxious Skin no rashes or lesions noted Skin Narrative: Capillary refills less than 3 seconds. No rash or erythema or abrasions or ecchymosis. MDM MDM MDM Narrative Medical decision making narrative: Patient arrived to the ER with stable vitals and reported pain to the bilateral arms. She denied any trauma and there is no physical exam findings to suggest trauma or infection. Differential diagnosis is for cervical radiculopathy versus nerve root impingement from scar tissue such as rotator cuff impingement syndrome versus carpal tunnel or cubital tunnel. There is also concern for upper extremity DVT or arterial occlusion. Her exam does not suggest any type of infectious process and there are no physical exam findings to suggest arterial or venous clot. She has tenderness palpation with even light touch bilaterally indicating hyperesthesia and potential nerve dysfunction. However Spurling test is negative going against cervical compression. At this time she does not have derangement to her vitals she is neurovascularly intact and there is no physical exam findings to suggest infection. Therefore I do not feel there is need for imaging or laboratory studies as patient will most likely need an EMG study to further assess the cause of her symptoms and everything given symptomatic medication and discharged home History & Record Review Discussion w/independent historian: Patient Discharge Plan Triage Chief Complaint: Upper Extremity Injury ED Provider: Luis Eduardo Sanchez Dx/Rx/DC Orders Clinical Impression: Radiculopathy affecting upper extremity, Anxiety and depression, Multiple sclerosis Instructions: ED Radiculopathy, Cervical Prescriptions: New oxycodone-acetaminophen [Percocet] 5-325 mg tablet 1 tab PO Q6H PRN (Reason: pain) 3 Days Qty: 12 0RF prednisone 20 mg tablet 40 mg PO DAILY 5 Days Qty: 10 0RF No Action amitriptyline 100 MG tablet 300 mg PO QHS ondansetron 4 MG tablet 4 mg PO Q8H PRN PRN (Reason: Nausea) Qty: 10 0RF divalproex 250 MG tablet 500 mg PO BIDCM Qty: 60 0RF melatonin 3 MG tablet 3 mg PO QHS PRN PRN (Reason: Insomnia) Qty: 30 0RF gabapentin 100 MG capsule 200 mg PO TID hydroxyzine pamoate 25 mg capsule 25 - 50 mg PO TID Patient Comments: Take 1-2 capsules by mouth three times daily as needed for Anxiety. promethazine [promethazine] 25 MG tablet 25 mg PO Q6H PRN PRN (Reason: Nausea) Qty: 10 0RF diphenoxylate-atropine [Lomotil] 2.5-0.025 mg tablet 1 tab PO 4X/DAY PRN PRN (Reason: diarrhea) 5 Days Qty: 20 0RF ferrous sulfate [FeroSul] 325 mg (65 mg iron) tablet 325 mg PO BID Patient Comments: Take 1 tablet by mouth twice daily. penicillin V potassium 500 mg tablet 500 mg PO TID Qty: 30 0RF oxycodone-acetaminophen [Percocet] 5-325 mg tablet 1 tab PO Q6H PRN (Reason: pain) 5 Days Qty: 20 0RF Primary Care Provider: Giancarlo Espinosa Referrals: Giancarlo Espinosa MD [Primary Care Provider] - Activity Restrictions/Additional Instructions: Your exam does not show any signs of infection blood clot or decreased blood flow. You need to talk to her family doctor about potential MRI of your neck or EMG studies to discern if there is any true nerve impingement. Continue your home medications as directed by your doctor and return to the ER should you have any further concerns Print Language: Estonian Disposition Disposition: Home, Self Care Discharge Date/Time: 08/07/23 00:15
[2023-08-07] MEDS: predniSONE 20 MG Tablet 60 MG PO (00:12)
[2023-08-07 00:13] VITALS: BP 131/76; PULSE 61; RESP 15; TEMP 36.2; O2SAT 98
== END 2023-08-07 00:15 | disposition home or self-care (01) ==
PROVIDERS: Emergency Provider Emergency Medicine; PCP Family Medicine; Visit Provider Emergency Medicine
DX: M54.10 Radiculopathy, site unspecified (principal); G35 Multiple sclerosis; F41.9 Anxiety disorder, unspecified; F32.A Depression, unspecified
CPT/HCPCS: 99282

== ENCOUNTER 2023-08-19 09:10 | Emergency (ER) | payer MEDICAID, SELFPAY ==
[2023-08-19 09:11] VITALS: BP 94/80; PULSE 114; RESP 20; TEMP 35.7; O2SAT 100
--- NOTE | 2023-08-19 09:26 | CT_ITS ---
STUDY: CT FACIAL BONES WITH CONTRAST REASON FOR EXAM: Female, 43 years old. Post op right-sided facial swelling. Recent right mandibular surgery. RADIATION DOSAGE (If Supplied By Facility): CTDIvol = ( 29.38 ) mGy, DLP = ( 650.20 ) mGycm TECHNIQUE: The patient was scanned in a multi detector CT scanner. Transaxial imaging was performed following the intravenous administration of IV 100mL Isovue-300. Sagittal and coronal images were reconstructed. Individualized dose optimization techniques were used for this CT. COMPARISON: Comparison is made with prior study dated May 16, 2023. FINDINGS: The patient is status post open reduction and internal fixation of the left side of the mandible. There is satisfactory reduction. There is also evidence of a open reduction and internal fixation of the ramus of the right mandible. Diffuse bilateral soft tissue swelling more prominent on the right side. There is evidence of a 2.9 cm x 1.6 cm heterogeneous collection deep to the right masseter muscle overlying the ramus of the right-sided mandible with air within it. This may represent a possible postoperative inflammatory phlegmon or abscess. There is also evidence of a 1.8 cm x 1.8 cm rounded hypodense nodule in the subcutaneous tissues overlying the maxillary region on the right side. Normal orbital freire and orbital contents. Nodular mucosal thickening at the base of the right maxillary sinus most likely retention cysts or polyps. Minimal mucosal thickening along the posterior aspect of the left ethmoid sinus. CT/Sinus/Facial Bone WITH Contras IMPRESSION: Status post bilateral mandibular ORIF as described. Soft tissue swelling more prominent on the right side with the heterogeneous collection deep to the right masseter muscle overlying the ramus of the right side of the mandible with air within it. This may represent postoperative phlegmon versus abscess. There is also evidence of a 1.8 cm x 1.8 cm rounded hypodense nodule in the subcutaneous tissues overlying the maxilla region of the right side. Electronically Signed: Reid Wright MD at 10:03 EDT ,
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
[2023-08-19] MEDS: fentaNYL 100 MCG/2 ML Ampul 50 MCG IV ×3 (09:32→12:19)
[2023-08-19 09:38] LABS: Absolute Lymphocyte Count 2.24 X10^3/uL (0.83-4.51); Absolute Neutrophil Count 6.6 X10^3/uL (2.0-7.7); Basophil# 0.04 X10^3/uL; Basophil% 0.4 % (0-1); Eosinophil# 0.15 X10^3/uL; Eosinophils% 1.5 % (0-5); Hematocrit 37.1 % (37-47); Lymphocyte # 2.24 X10^3/ul (0.83-4.51); Lymphocyte % 22.7 % (19-41); Mean Corp Hgb Conc 32.3 g/dL (32-36); Mean Corpuscular Hgb 31.4 pg (27.0-32.0); Mean Corpuscular Volume 97.1 fL (81-99); Mean Platelet Vol. 9.5 fl (6.2-12.0); Monocyte# 0.78 X10^3/uL; Monocyte% 7.9 % (0-10); NRBC Flagged by Analyzer 0 % (0-5); Neutrophil # 6.62 X10^3/uL (2.7-7.7); Platelet Count 376 K/mm3 (150-450); RBC Distribution Width CV 12.2 % (11.6-14.6); RBC Distribution Width SD 43.4 fl (35.1-43.9); Red Blood Count 3.82 M/mm3 (4.2-5.4); White Blood Count 9.9 K/mm3 (4.4-11.0)
[2023-08-19 09:49] LABS: Anion Gap 8 (5-15); BUN 11 mg/dL (7-18); BUN/Creat Ratio 16.5 RATIO (10-20); Calcium,Total 10.3 mg/dL (8.5-10.1); Chloride 101 mmol/L (98-107); Creatinine, Serum 0.67 mg/dL (0.55-1.02); EST Glomerular Filtration Rate 102 mL/min (>60); Est Glom Filt Rate - Afr Amer 124 mL/min (>60); Glucose 124 mg/dL (74-106); Potassium 3.7 mmol/L (3.5-5.1); Sodium Level 138 mmol/L (136-145)
[2023-08-19] MEDS: Piperacil/Tazobactam 4.5 GM in 0.9% Normal Saline (100mL MB+) 100 ML IV (09:59)
[2023-08-19 11:10] VITALS: BP 136/78; PULSE 71; RESP 18; O2SAT 97
[2023-08-19 13:00] VITALS: BP 146/103; PULSE 97; RESP 18; O2SAT 98
[2023-08-19] MEDS: Morphine 4 MG/ML Syringe IV (13:42)
[2023-08-19] MEDS: Ondansetron 4 MG/2 ML Vial IV (13:42)
[2023-08-19 13:53] VITALS: BP 109/79; PULSE 95; RESP 16; TEMP 36.7; O2SAT 98
== END 2023-08-19 14:08 | disposition other institution (70) ==
PROVIDERS: Emergency Provider Emergency Medicine; PCP Family Medicine; Visit Provider Emergency Medicine
DX: R22.0 Localized swelling, mass and lump, head (principal); G89.18 Other acute postprocedural pain; T81.49XA Infection following a procedure, other surgical site, initial encounter
CPT/HCPCS: 70487; 80048; 85025; 96365; 96375; 96376; 99283; J7030; Q9967; A4216; J2405

== ENCOUNTER 2023-09-12 05:56 | Emergency (ER) | payer MEDICAID, SELFPAY ==
[2023-09-12] VITALS (13 sets, daily range): BP systolic 108–119; BP diastolic 66–85; PULSE 81–104; RESP 16–18; TEMP 36.4–36.7; O2SAT 90–100; BMI 25.2
[2023-09-12] MEDS: LORazepam 2 MG/ML Syringe IV (06:09)
--- NOTE | 2023-09-12 06:10 | ED.RN ---
0609 Pt had a grand mal seizure--ativan 2mg iv given
[2023-09-12 06:26] LABS: Absolute Lymphocyte Count 1.76 X10^3/uL (0.83-4.51); Absolute Neutrophil Count 6.7 X10^3/uL (2.0-7.7); Basophil# 0.04 X10^3/uL; Basophil% 0.5 % (0-1); Eosinophil# 0.01 X10^3/uL; Eosinophils% 0.1 % (0-5); Hematocrit 35.6 % (37-47); Hemoglobin 11.3 g/dL (12.0-15.0); Lymphocyte # 1.76 X10^3/ul (0.83-4.51); Lymphocyte % 19.9 % (19-41); Mean Corp Hgb Conc 31.7 g/dL (32-36); Mean Corpuscular Hgb 31.1 pg (27.0-32.0); Mean Corpuscular Volume 98.1 fL (81-99); Mean Platelet Vol. 9.2 fl (6.2-12.0); Monocyte% 3.4 % (0-10); NRBC Flagged by Analyzer 0 % (0-5); Neutrophil # 6.67 X10^3/uL (2.7-7.7); Neutrophil % 75.4 % (47-70); Platelet Count 406 K/mm3 (150-450); RBC Distribution Width CV 12.7 % (11.6-14.6); RBC Distribution Width SD 45.6 fl (35.1-43.9); Red Blood Count 3.63 M/mm3 (4.2-5.4); White Blood Count 8.8 K/mm3 (4.4-11.0)
--- NOTE | 2023-09-12 06:28 | CT_ITS ---
EXAM: CT HEAD WITHOUT INTRAVENOUS CONTRAST CLINICAL INDICATION: SEIZURE SEIZURE TECHNIQUE: Multiple axial images were obtained of the head without intravenous contrast. This CT exam was performed using one or more of the following dose reduction techniques: automated exposure control, adjustment of the mA and/or kV according to patient size, and/or use of iterative reconstruction technique. RADIATION DOSE: CTDIvol = 44.99 mGy, DLP = 745.49 mGy-cm COMPARISON: CT scan brain 06/12/2023. CT scan facial bones 08/19/2023. FINDINGS: BRAIN AND EXTRA-AXIAL SPACES: Unremarkable. No intra- or extra-axial hemorrhage. No evidence of acute infarct. No intracranial mass or mass effect. There is preservation of the [place]/white matter interface. Posterior fossa structures are unremarkable. Ventricles are appropriate for age. No hydrocephalus. Basal cisterns are patent. BONES/JOINTS: There is marginal demonstration of a nonacute fracture of the neck of the right mandibular condyle. No discrete lytic or blastic abnormalities. SINUSES: Unremarkable as visualized. Clear. MASTOID AIR CELLS: Unremarkable. Clear. ORBITS: Visualized globes, extraocular muscles, optic nerves and retrobulbar fat appear unremarkable. CT/Brain/Head without Contrast IMPRESSION: No demonstrated acute intracranial process. Electronically Signed: Angelo Rich MD at 7:16 EDT Reading Location ID and State: [facility] / [place] , Service support ,
[2023-09-12 06:33] LABS: Bacteria 0 SEEN /hpf (None Seen); Mucous, Urine 0 SEEN /hpf (<or=2+); Red Blood Cells-Urine 0 SEEN /hpf (0-5)
--- NOTE | 2023-09-12 06:36 | EX.ED.DYSGE1 ---
HPI History of Present Illness Chief Complaint: Seizure Informant: patient and EMS Narrative Narrative: Patient is a 43-year-old female with past medical history of seizure disorder. [facility] and [facility] staff at the [facility] witnessed 12-15 seizure-like events throughout the night. EMS was called and states they witnessed 1 seizure like activity on the way into the hospital. Upon arrival to the hospital patient is displaying seizure-like activity and cannot provide any further history. After patient was medicated with Ativan the seizure broke and on reevaluation the patient is awake and alert and states that she has been feeling normal in the days leading up to today's seizure-like activity and she reports she has been taking her medication as directed. She denies any sick symptoms and she denies any concern for . She also denies any history of drug or alcohol abuse which could lead to withdrawal seizures [facility] Medical History Multiple sclerosis IUD (intrauterine device) in place Seizures GERD (gastroesophageal reflux disease) Transverse myelitis Home Medications ?Medication ?Instructions ?Recorded ?Last Taken ?Type amitriptyline 100 mg tablet 300 mg PO QHS sleep 04/02/18 01/29/20 History ondansetron 4 mg disintegrating 4 mg PO Q8H PRN PRN Nausea #10 01/21/19 Unknown Rx tablet TABLETS divalproex 250 mg tablet,delayed 500 mg (2 x 250 mg) PO BIDCM #60 02/05/20 Unknown Rx release TABLETS melatonin 3 mg tablet 3 mg PO QHS PRN PRN Insomnia #30 02/05/20 Unknown Rx TABLETS gabapentin 100 mg capsule 200 mg PO TID 06/12/20 Unknown History hydroxyzine pamoate 25 mg capsule 25 - 50 mg PO TID 09/11/20 Unknown History promethazine 25 mg tablet 25 mg PO Q6H PRN PRN Nausea #10 06/22/21 Unknown Rx TABLETS diphenoxylate-atropine 2.5 1 tab PO 4X/DAY PRN PRN diarrhea 5 06/25/22 Unknown Rx mg-0.025 mg tablet (Lomotil) days #20 tabs ferrous sulfate 325 mg (65 mg 325 mg PO BID 05/06/23 Unknown History iron) tablet (FeroSul) oxycodone-acetaminophen 5 mg-325 1 tab PO Q6H PRN pain 3 days #12 08/07/23 Unknown Rx mg tablet (Percocet) tabs divalproex 500 mg tablet,delayed 500 mg PO DAILY 09/12/23 Unknown History release (Depakote) Allergy/AdvReac Type Severity Reaction Status Date / Time naproxen (From Naprosyn) Allergy Hives Verified 09/12/23 06:06 Surgical History Hx of appendectomy Hx of elbow surgery Hx of tubal ligation Social History Smoking Status: Never smoker substance use type: amphetamines ROS ROS ED Constitutional Constitutional ED: Denies chills or fever(s) Eyes Eyes: Denies change in vision ENT ENT ED: Denies rhinorrhea or sore throat Cardiovascular Cardiovascular: Denies chest pain, palpitations or racing heartbeat Respiratory/Chest Respiratory/Chest: Denies cough or dyspnea Gastrointestinal Gastrointestinal: Denies abdominal pain, diarrhea, nausea or vomiting Genitourinary Genitourinary ED: Denies dysuria Musculoskeletal Musculoskeletal: Denies myalgias Integumentary Denies rash Neurologic Neurologic: Denies headache(s) Hematologic/Lymphatic Hematologic/Lymphatic: Denies easy bleeding or easy bruising EXAM Physical Exam Const Vital Signs: 09/12/23 05:57 09/12/23 06:30 09/12/23 06:45 Temperature 98.0 F Temperature Source Temporal Pulse Rate 99 104 H Respiratory Rate 16 17 Blood Pressure 119/76 118/71 114/72 Blood Pressure Mean 90 85 85 Pulse Ox 99 Oxygen Delivery Method Room Air 09/12/23 07:00 09/12/23 07:01 Temperature Temperature Source Pulse Rate 81 Respiratory Rate 18 Blood Pressure 111/71 Blood Pressure Mean 84 Pulse Ox 100 100 Oxygen Delivery Method Positive well nourished and well developed General Appearance ED: well developed; Negative for pallor HEENT HEENT Narrative: Normocephalic atraumatic No obvious tongue or cheek biting noted No secondary findings in the posterior pharynx to suggest infection Eyes EOMs intact bilaterally Eyes Narrative: Pupils are dilated and sluggish to respond to light General Eye ED: Negative for scleral icterus Neck supple Neck Narrative: No nuchal rigidity or meningeal signs Chest Wall palpation of chest normal Chest Narrative: No bony deformity or crepitance noted Resp normal respiratory effort and clear to auscultation bilaterally Resp Narrative: No nasal flaring retractions tachypnea or accessory muscle use Cardio regular rate and regular rhythm Rate: other Other Details: Radial and carotid pulses are equal and symmetric GI normal to inspection, nondistended, normoactive bowel sounds, non-tender, non-distended and no masses GI Narrative: No voluntary guarding or rigidity or pulsatile mass Auscultation: normoactive bowel sounds Palpation: soft Extremity normal to inspection Extremity Narrative: No bony deformity or joint effusion noted Neuro oriented x3, CN's II-XII intact bilaterally and no sensory deficits noted Neuro Narrative: GCS of 14 but patient awakes to voice Cranial nerves II through XII are grossly intact without focal neurologic deficit NIH stroke scale score of 0 Sensorium / Orientation: alert Motor Exam: strength 5/5 throughout Psych mental status grossly normal Skin no rashes or lesions noted and no wounds General Skin Exam: Negative for jaundice or pallor MDM MDM MDM Narrative Medical decision making narrative: Patient arrived to the ER in an active seizure and therefore was given 2 mg of IV Ativan. Following this the seizure activity broke. About 15 to 20 minutes later the patient was awake alert and oriented. She stated that there was no alcohol or drug use and that she was taking her medications as directed and denied any sick symptoms. However in looking for a reason for decreased seizure threshold such as electrolyte abnormality low valproic acid level UTI or aspiration pneumonia or even potential brain bleed or mass it workup was performed. Workup was only positive for a low valproic acid level and elevated lactic which correlates with her seizure activity. Therefore patient will be given 2 L IV fluid to flush the lactic from her system as well as 1 g of Depakote via IV route. As long as patient remains seizure-free I feel there will be no need for further evaluation and otherwise she is safe for discharge History & Record Review Discussion w/independent historian: EMS personnel and Patient Lab Data Attestation: I reviewed the patient's lab results. Labs: Laboratory Results - last 24 hr 09/12/23 09/12/23 09/12/23 06:06 06:17 06:25 WBC 8.8 RBC 3.63 L Hgb 11.3 L Hct 35.6 L MCV 98.1 MCH 31.1 MCHC 31.7 L RDW Std Deviation 45.6 H RDW Coeff of Walt 12.7 Plt Count 406 MPV 9.2 Immature Gran % (Auto) 0.700 Neut % (Auto) 75.4 H Lymph % (Auto) 19.9 [place] % (Auto) 3.4 Eos % (Auto) 0.1 Baso % (Auto) 0.5 Absolute Neuts (auto) 6.7 Absolute Lymphs (auto) 1.76 Nucleated RBC % 0 Sodium 142 Potassium 3.5 Chloride 109 H Carbon Dioxide 22.0 Anion Gap 11 BUN 18 Creatinine 0.90 Estim Creat Clear Calc 75.76 Est GFR (MDRD) Af Amer 87 Est GFR (MDRD) Non-Af 72 BUN/Creatinine Ratio 20.0 Glucose 166 H Lactic Acid 5.0 H* Calcium 9.2 Magnesium 1.9 Lactate Dehydrogenase 126 Prolactin 68.8 Serum , Qual NEGATIVE Urine Color Yellow Urine Clarity Sl. Cloudy Urine pH 5.0 Ur Specific [place] 1.025 Urine Protein 15 H Urine Glucose (UA) Normal Urine Ketones Negative Urine Occult Blood Negative Urine Nitrite Negative Urine Bilirubin Negative Urine Urobilinogen Normal Ur Leukocyte Esterase 25 H Urine RBC 0 SEEN Urine WBC 0-5 SEEN Ur Squamous Epith Cells 0-5 SEEN Urine Bacteria 0 SEEN Urine Mucus 0 SEEN Urine Opiates Screen NEGATIVE Urine Methadone Screen NEGATIVE Ur Barbiturates Screen NEGATIVE Valproic Acid < 3 L Ur Phencyclidine Scrn NEGATIVE Ur Amphetamines Screen NEGATIVE MDMA (Ecstasy) Screen POSITIVE H U Benzodiazepines Scrn NEGATIVE Urine Cocaine Screen NEGATIVE U Cannabinoids Screen NEGATIVE Ur Drug Screen Comment Ethyl Alcohol < 3.0 Radiography Diagnostic Testin view chest x-ray as interpreted by the emergency medicine physician reveals no acute infiltrate pneumothorax or pleural effusion Discharge Plan Triage Chief Complaint: Seizure ED Provider: Luis Eduardo Sanchez Dx/Rx/DC Orders Clinical Impression: Breakthrough seizure, Noncompliance with medications Instructions: ED Seizure, Recurrent (Adult) Prescriptions: No Action amitriptyline 100 MG tablet 300 mg PO QHS ondansetron 4 MG tablet 4 mg PO Q8H PRN PRN (Reason: Nausea) Qty: 10 0RF divalproex 250 MG tablet 500 mg PO BIDCM Qty: 60 0RF melatonin 3 MG tablet 3 mg PO QHS PRN PRN (Reason: Insomnia) Qty: 30 0RF gabapentin 100 MG capsule 200 mg PO TID hydroxyzine pamoate 25 mg capsule 25 - 50 mg PO TID Patient Comments: Take 1-2 capsules by mouth three times daily as needed for Anxiety. promethazine [promethazine] 25 MG tablet 25 mg PO Q6H PRN PRN (Reason: Nausea) Qty: 10 0RF diphenoxylate-atropine [Lomotil] 2.5-0.025 mg tablet 1 tab PO 4X/DAY PRN PRN (Reason: diarrhea) 5 Days Qty: 20 0RF ferrous sulfate [FeroSul] 325 mg (65 mg iron) tablet 325 mg PO BID Patient Comments: Take 1 tablet by mouth twice daily. oxycodone-acetaminophen [Percocet] 5-325 mg tablet 1 tab PO Q6H PRN (Reason: pain) 3 Days Qty: 12 0RF divalproex [Depakote] 500 mg tablet,delayed release (DR/EC) 500 mg PO DAILY Primary Care Provider: Giancarlo Espinosa Referrals: Giancarlo Espinosa MD [Primary Care Provider] - Activity Restrictions/Additional Instructions: You need to take your divalproex/Depakote as directed as this will prevent any further seizure activity. Return to the ER should you have any further concerns Print Language: Tamazight Disposition Disposition: Home, Self Care
[2023-09-12 06:39] LABS: Color, Urine Yellow (Yellow); Glucose, Dipstick Normal (Normal); Ketone-Dipstick Negative (Negative); Leukocyte Esterase-Dipstick 25 /ul (Negative); Nitrite-Dipstick Negative (Negative); Occult Blood-Urine Negative /ul (Negative); Protein-Dipstick 15 mg/dl (Negative); Specific Gravity, Urine 1.025 (1.002-1.030); Urine Bilirubin Dipstick Negative (Negative); Urine Clarity Sl. Cloudy (Clear); Urine Urobilinogen Normal (Normal)
[2023-09-12 06:42] LABS: Alcohol, Blood (Medical)-Serum < 3.0 mg/dL; Internal QC Validated? YES +Cl - CLEAR BKGD; Pregnancy, Serum, hCG Quali. NEGATIVE Negative; Valproic Acid (Depakene) Level < 3 ug/mL (50-100)
[2023-09-12 06:46] LABS: Squamous Epithelial Cells - UA 0-5 SEEN /hpf (5-10); White Blood Cells 0-5 SEEN /hpf (0-5)
--- NOTE | 2023-09-12 06:50 | RAD_ITS ---
EXAM: XR CHEST, 1 VIEW CLINICAL INDICATION: SEIZURE SEIZURE TECHNIQUE: Frontal view of the chest. COMPARISON: Chest x-ray 01/31/2020. FINDINGS: LUNGS AND PLEURAL SPACES: Unremarkable. No consolidation or edema. No pneumothorax. No effusion. HEART: Unremarkable. Cardiac silhouette not enlarged. MEDIASTINUM: Central airways and mediastinal contour are unremarkable. BONES/JOINTS: Unremarkable. No acute fracture. SOFT TISSUES: Unremarkable. RAD/Chest 1 View (Portable) IMPRESSION: No radiographic evidence of acute cardiopulmonary disease. Electronically Signed: Angelo Rich MD at 7:18 EDT Reading Location ID and State: [facility] / [place] , Service support ,
[2023-09-12 06:51] LABS: Anion Gap 11 (5-15); BUN 18 mg/dL (7-18); Calcium,Total 9.2 mg/dL (8.5-10.1); Chloride 109 mmol/L (98-107); EST Glomerular Filtration Rate 72 mL/min (>60); Est Glom Filt Rate - Afr Amer 87 mL/min (>60); Estimated Creatinine Clearance 75.76 ml/min; Glucose 166 mg/dL (74-106); LDH 126 U/L (84-246); Magnesium 1.9 mg/dL (1.6-2.6); Potassium 3.5 mmol/L (3.5-5.1); Prolactin 68.8 ng/mL; Sodium Level 142 mmol/L (136-145)
[2023-09-12 06:54] LABS: Amphetamine Urine VISTA NEGATIVE (<1000 ng/mL); Barbiturate Urine VISTA NEGATIVE (< 200 ng/mL); Benzodiazepine Urine VISTA NEGATIVE (< 200 ng/mL); Cocaine Urine VISTA NEGATIVE (< 300 ng/mL); Ecstacy Urine VISTA POSITIVE (< 500 ng/mL); Methadone Urine VISTA NEGATIVE (< 300 ng/mL); PCP Urine VISTA NEGATIVE (< 25 ng/mL); THC Urine VISTA NEGATIVE (< 50 ng/mL); Vista UDS pH Range 5
[2023-09-12] MEDS: 0.9% Normal Saline (1000mL) 1,000 ML 999 ML IV ×2 (07:20→09:48)
[2023-09-12] MEDS: Valproate Sodium 1,000 MG in Dextrose 5%-Water (50mL Bag) 50 ML 50 MG IV (07:20)
[2023-09-12 10:20] LABS: Reflex Lactate? Y
[2023-09-12 11:32] LABS: Lactic Acid 2.4 mmol/L (0.4-1.9)
== END 2023-09-12 11:04 | disposition home or self-care (01) ==
PROVIDERS: Emergency Provider Emergency Medicine; PCP Family Medicine; Visit Provider Emergency Medicine
DX: R56.9 Unspecified convulsions (principal); Z91.148 Patient's other noncompliance with medication regimen for other reason; Z79.899 Other long term (current) drug therapy
CPT/HCPCS: 51701; 70450; 71045; 80048; 80164; 80307; 80320; 81001; 83605; 83615; 83735; 84146; 84703; 85025; 96365; 96366; 96375; 96376; 99284; J7030; P9612; A4216; G0480

== ENCOUNTER 2023-09-14 08:47 | Emergency (ER) | payer MEDICAID, SELFPAY ==
[2023-09-14 08:48] VITALS: BP 97/73; PULSE 104; RESP 18; TEMP 36.1; O2SAT 100; BMI 25.0
--- NOTE | 2023-09-14 08:50 | ED.RN ---
This alumnae secretary picked up a private phone call. Caller referred to pt by name and said Kimberlee Stallworth is going through withdrawls, and is in denial. This alumnae secretary asked for relation to pt and name, and caller stated I cannot tell you that ma'am. and hung up phone. This was the extent of the phone call.
--- NOTE | 2023-09-14 08:55 | EX.ED.DYSGE1 ---
HPI History of Present Illness Chief Complaint: Weakness [facility] Medical History Multiple sclerosis IUD (intrauterine device) in place Seizures GERD (gastroesophageal reflux disease) Transverse myelitis Home Medications ?Medication ?Instructions ?Recorded ?Last Taken ?Type amitriptyline 100 mg tablet 300 mg PO QHS sleep 04/02/18 01/29/20 History ondansetron 4 mg disintegrating 4 mg PO Q8H PRN PRN Nausea #10 01/21/19 Unknown Rx tablet TABLETS divalproex 250 mg tablet,delayed 500 mg (2 x 250 mg) PO BIDCM #60 02/05/20 Unknown Rx release TABLETS melatonin 3 mg tablet 3 mg PO QHS PRN PRN Insomnia #30 02/05/20 Unknown Rx TABLETS gabapentin 100 mg capsule 200 mg PO TID 06/12/20 Unknown History hydroxyzine pamoate 25 mg capsule 25 - 50 mg PO TID 09/11/20 Unknown History promethazine 25 mg tablet 25 mg PO Q6H PRN PRN Nausea #10 06/22/21 Unknown Rx TABLETS diphenoxylate-atropine 2.5 1 tab PO 4X/DAY PRN PRN diarrhea 5 06/25/22 Unknown Rx mg-0.025 mg tablet (Lomotil) days #20 tabs ferrous sulfate 325 mg (65 mg 325 mg PO BID 05/06/23 Unknown History iron) tablet (FeroSul) oxycodone-acetaminophen 5 mg-325 1 tab PO Q6H PRN pain 3 days #12 08/07/23 Unknown Rx mg tablet (Percocet) tabs divalproex 500 mg tablet,delayed 500 mg PO DAILY 09/12/23 Unknown History release (Depakote) Allergy/AdvReac Type Severity Reaction Status Date / Time naproxen (From Naprosyn) Allergy Hives Verified 09/14/23 08:48 Surgical History Hx of appendectomy Hx of elbow surgery Hx of tubal ligation Social History Smoking Status: Never smoker substance use type: amphetamines EXAM Physical Exam Const Vital Signs: 09/14/23 08:48 09/14/23 09:34 Temperature 97 F L Temperature Source Temporal Pulse Rate 104 H Respiratory Rate 18 Respiratory Pattern Normal Blood Pressure 97/73 Blood Pressure Mean 81 Pulse Ox 100 Oxygen Delivery Method Room Air [facility] [place] Narrative Medical decision making narrative: HISTORY OF PRESENT ILLNESS: 43-year-old female presents with weakness. Patient states she has history of seizure and noted she had a brief seizure prior to arrival. States at that time she was standing going down the stairs. She noted she woke up on the floor falling approximately 3 steps down. She is unsure if she hit her head. She denies any vomiting afterwards. Denies any recent illness such as fever chills cough difficulty urinating abdominal pain. She complains of upper back pain at this time. Denies any other injuries or pain. REVIEW OF SYSTEMS: Pertinent positives: Back pain, seizure-like activity Pertinent negatives: Bowel or bladder incontinence, focal weakness, vomiting, PHYSICAL EXAM: Nursing triage notes reviewed, Vital signs reviewed Primary Survey Airway: Intact Breathing: Bilateral breath sounds Circulation: Palpable bilateral femorals, Palpable bilateral radial, Palpable bilateral DP and Palpable bilateral PT Disability / Spine precautions GCS Score: Eye Openin Verbal Response: 5 Motor Response: 6 Secondary Survey Constitutional: Please see MDM Head: Atraumatic, Midface stable, NO jaw malocclusion, No Cephalohematoma, and No Lacerations noted Eye: Pupils equal round and reactive to light, Extraocular muscles intact and No periorbital ecchymosis or stepoff, no evidence of entrapment ENT: Oropharynx clear, no lacerations, no hemotympanum, no raccoon eyes or vieira sign Cervical spine / Neck: No cervical spine bony tenderness, crepitance, or stepoff deformity Trachea midline Lungs: Clear to auscultation, No asymmetric rise and No crepitus, no flail chest Cardiac: Regular rate and rhythm and No murmurs Abdomen: Soft, Nontender and No rebound Pelvis: Pelvis stable to compression : No evidence of genital injury Back: No midline bony tenderness to thoracic/lumbar/sacral spines Neuro: At baseline, intact strength and sensation in bilateral upper and lower extremities. 2+ patellar reflexes bilaterally. Extremities: NO gross Deformities Psych: Normal affect Nursing triage notes reviewed, Vital signs reviewed MEDICAL DECISION MAKING: Chief Complaint: Weakness External records reviewed: Reviewed prior ED records. Patient was seen on 09/12/2023 for seizure-like activity. At the time patient was noted to have a subtherapeutic valproic acid level. Her CBC showed mild anemia with a hemoglobin of 1.3, she had no electrolyte abnormalities, she had no evidence of metabolic acidosis or acute kidney injury, she is not , she had no evidence of UTI, alcohol level was negative Factors affecting care: Seizures, methamphetamine abuse, med noncompliance Social determinants of health: history of methamphetamine abuse History obtained from others: none Consults: none MDM Narrative: The patient was initially hemodynamically stable, afebrile and nontoxic-appearing. Primary secondary trauma surveys concerning for intracranial, cervical spine thoracic spine injuries. I considered the following differential diagnosis: Intracranial hemorrhage, cervical spine abnormality, thoracic spine abnormality related to trauma. While consider other etiologies of the patient's chief complaint of weakness I suspect based on her history she is suffering from pain from trauma and likely breakthrough seizure. She had no infectious symptoms such as fever, cough, abdominal pain, increased urination, vomiting, diarrhea. After reviewing her recent labs below suspicion she has any electrolyte abnormality, infectious etiologies. Was more concerned about trauma etiologies at this time. I obtained a broad imaging workup to further elucidate the etiology of the patient's complaints I treat the patient's pain with Tylenol initially. ALL IMAGES (IF OBTAINED) HAVE BEEN PERSONALLY REVIEWED AND INTERPRETED BY MYSELF. CT scan of the chest, cervical spine and thoracic spine were negative for acute traumatic injury. Tertiary exam without new traumatic injury. Patient is likely suffering from back contusion from fall. Likely several breakthrough seizure. She is encouraged to continue valproate, follow-up with neurology and return if symptoms change or worsen. Strict return precautions were discussed. All questions were answered. The patient and/or family, caregivers express understanding. The patient and/or family, caregivers agrees with the plan. Shared decision making: I will have a discussion with the patient and or visitors regarding risk/benefits of further testing or admission. They will be made aware of of the risk/benefits inherent in this decision they will be given the opportunity to voice understanding. Total critical care time today provided was at least 0 minutes. This excludes separately billable procedures. Critical care time (if documented) is secondary to the patient having high probability of clinically significant/life threatening deterioration in the patient's condition which required my urgent intervention. Impression: 1. History of seizure 2. Fall 3. Back contusion Dispo: Discharge home This note was generated with [employer] dictation software. It may contain incorrect words, spelling, and punctuation that were not noted in review of the chart prior to signing. Radiography Diagnostic Testing: Clinical Impression(s) from Imaging Studies Brain CT 09/14/23 09:08 IMPRESSION: No acute intracranial process. Electronically Signed: Mike Tejada MD at 9:56 EDT , Cervical Spine CT 09/14/23 09:08 IMPRESSION: No evidence of acute cervical spinal fracture or spondylolisthesis. Electronically Signed: Mike Tejada MD at 9:59 EDT , Thoracic Spine CT 09/14/23 09:08 IMPRESSION: 1. No evidence of acute thoracic spinal fracture or spondylolisthesis 2. Small nonobstructing stone in the left kidney.. Electronically Signed: Mike Tejada MD at 10:03 EDT , Discharge Plan Triage Chief Complaint: Weakness ED Provider: Eric Rock Dx/Rx/DC Orders Prescriptions: No Action amitriptyline 100 MG tablet 300 mg PO QHS ondansetron 4 MG tablet 4 mg PO Q8H PRN PRN (Reason: Nausea) Qty: 10 0RF divalproex 250 MG tablet 500 mg PO BIDCM Qty: 60 0RF melatonin 3 MG tablet 3 mg PO QHS PRN PRN (Reason: Insomnia) Qty: 30 0RF gabapentin 100 MG capsule 200 mg PO TID hydroxyzine pamoate 25 mg capsule 25 - 50 mg PO TID Patient Comments: Take 1-2 capsules by mouth three times daily as needed for Anxiety. promethazine [promethazine] 25 MG tablet 25 mg PO Q6H PRN PRN (Reason: Nausea) Qty: 10 0RF diphenoxylate-atropine [Lomotil] 2.5-0.025 mg tablet 1 tab PO 4X/DAY PRN PRN (Reason: diarrhea) 5 Days Qty: 20 0RF ferrous sulfate [FeroSul] 325 mg (65 mg iron) tablet 325 mg PO BID Patient Comments: Take 1 tablet by mouth twice daily. oxycodone-acetaminophen [Percocet] 5-325 mg tablet 1 tab PO Q6H PRN (Reason: pain) 3 Days Qty: 12 0RF divalproex [Depakote] 500 mg tablet,delayed release (DR/EC) 500 mg PO DAILY Primary Care Provider: Giancarlo Espinosa Referrals: Giancarlo Espinosa MD [Primary Care Provider] - Print Language: Stateless
--- NOTE | 2023-09-14 09:08 | CT_ITS ---
INDICATION: fall , upper back pain r/o fracture or dislocation EXAMINATION: CT THORACIC SPINE - CT Spine Thoracic W/O Contrast Injection TECHNIQUE: Helically acquired images were obtained of the thoracic spine. 2D reformats were reviewed. A radiation dose optimization technique was used for this scan. The protocol utilizes one or more of the following dose reduction techniques: automated exposure control, adjustment of mA and/or kV according to patient size,and/or use of iterative reconstruction technique. IV Contrast dosage and agent: None. RADIATION DOSAGE (If Supplied By Facility): CTDIvol = ( 19.21 ) mGy, DLP = ( 639.60 ) mGycm COMPARISON: No relevant prior comparison study available FINDINGS: VERTEBRAE: No evidence of acute compression fracture deformity. The vertebral heights are within normal limits. Old fractures of posterior ribs bilaterally. No discrete lytic or blastic abnormality observed. VERTEBRAL ALIGNMENT: Unremarkable. There is preservation of the normal thoracic kyphosis. DISCS: Disc heights are preserved. VISUALIZED THORAX: Visualized thoracic aorta is nondilated. Lung fried are clear. Visualized upper abdomen demonstrates 2 mm nonobstructing stone in the left kidney CT/Spine Thoracic without Contras IMPRESSION: 1. No evidence of acute thoracic spinal fracture or spondylolisthesis 2. Small nonobstructing stone in the left kidney.. Electronically Signed: Mike Tejada MD at 10:03 EDT ,
--- NOTE | 2023-09-14 09:08 | CT_ITS ---
INDICATION: fall, head trauma EXAMINATION: CT BRAIN - CT Head or Brain W/O Contrast Injection TECHNIQUE: Multiple axial images were obtained of the head without intravenous contrast. The protocol utilizes one or more of the following dose reduction techniques: automated exposure control, adjustment of mA and/or kV according to patient size,and/or use of iterative reconstruction technique. IV Contrast dosage and agent: None. RADIATION DOSAGE (If Supplied By Facility): CTDIvol = ( 44.99 ) mGy, DLP = ( 779.24 ) mGycm COMPARISON: Prior study dated: 09/12/2023 FINDINGS: BRAIN PARENCHYMA: No intra- or extra-axial hemorrhage. No evidence of acute infarct. No intracranial mass or mass effect. There is preservation of the [place]/white matter interface. Posterior fossa structures are unremarkable. CSF SPACES: Appropriate for age. No hydrocephalus. Basal cisterns are patent. CALVARIUM, SKULL BASE, PARANASAL SINUSES AND MASTOID AIR CELLS: Clear. No discrete lytic or blastic abnormalities. ORBITS: Both globes, extraocular muscles, optic nerves and retrobulbar fat appear unremarkable. CT/Brain/Head without Contrast IMPRESSION: No acute intracranial process. Electronically Signed: Mike Tejada MD at 9:56 EDT ,
--- NOTE | 2023-09-14 09:08 | CT_ITS ---
INDICATION: fall, neck pain EXAMINATION: CT CERVICAL SPINE - CT Spine Cervical W/O Contrast Injection TECHNIQUE: Helically acquired images were obtained of the cervical spine. 2D reformatted images were reviewed. The protocol utilizes one or more of the following dose reduction techniques: automated exposure control, adjustment of mA and/or kV according to patient size,and/or use of iterative reconstruction technique. IV Contrast dosage and agent: None. RADIATION DOSAGE (If Supplied By Facility): CTDIvol = ( 17.74 ) mGy, DLP = ( 366.64 ) mGycm COMPARISON: No relevant prior comparison study available FINDINGS: VERTEBRAE: No fracture or traumatic subluxation. No discrete lytic or blastic abnormality. Normal alignment. Normal craniocervical junction and cervicothoracic junction. DISCS and SPINAL CANAL: Disc heights are preserved. Degenerative changes of the right facet joint at the level of C2-C3. No critical stenosis. NECK SOFT TISSUES: No prevertebral soft tissue swelling. There is no cervical adenopathy. LUNG APICES: Clear. CT/Spine Cervical without Contras IMPRESSION: No evidence of acute cervical spinal fracture or spondylolisthesis. Electronically Signed: Mike Tejada MD at 9:59 EDT ,
[2023-09-14] MEDS: Acetaminophen 325 MG Tablet 650 MG PO (09:33)
[2023-09-14 10:42] VITALS: BP 108/69; PULSE 95; RESP 16; TEMP 36.7; O2SAT 98
== END 2023-09-14 10:44 | disposition home or self-care (01) ==
PROVIDERS: Emergency Provider Emergency Medicine; PCP Family Medicine; Visit Provider Emergency Medicine
DX: R56.9 Unspecified convulsions (principal); G35 Multiple sclerosis; S20.229A Contusion of unspecified back wall of thorax, initial encounter; W10.9XXA Fall (on) (from) unspecified stairs and steps, initial encounter
CPT/HCPCS: 70450; 72125; 72128; 99282

== ENCOUNTER 2023-09-14 13:28 | Emergency (ER) | payer MEDICAID, SELFPAY ==
[2023-09-14 13:28] VITALS: BP 100/79; PULSE 100; RESP 18; TEMP 36.2; O2SAT 100; BMI 25.1
--- NOTE | 2023-09-14 15:18 | EDS_ITS ---
HPI History of Present Illness Chief Complaint: Back Informant: patient Onset/Context/Timing Onset: Today Context: Gradual Onset Injury: fall Timing: Continuous Quality: Dull and Aching Current Severity: Mild Maximum Severity: Mild Worsened by: improves with Movement Relieved by: Remaining Still Associated Symptoms Associated Symptoms: Negative for Numbness, Tingling, Radiation to Right Leg, Radiation to Left Leg, Fever, Abdominal Pain, Dysuria, Unable to Ambulate, Unable to Transfer, Urinary Retention, Urinary Incontinence, Constipation or Fecal Incontinence Narrative Narrative: 43-year-old female history of MS and seizures. Reportedly had a seizure today. When she fell she injured her back. States that she was seen today in the emergency department. She had a CAT scan of her head neck and back in July showed no fractures. Lipase unremarkable. She is complaining of discomfort. Worse with movement. No numbness or tingling. Prior similar symptoms: Yes Recent Illness/Hospitalization: No [facility] Medical History Multiple sclerosis IUD (intrauterine device) in place Seizures GERD (gastroesophageal reflux disease) Transverse myelitis Home Medications ?Medication ?Instructions ?Recorded ?Last Taken ?Type amitriptyline 100 mg tablet 300 mg PO QHS sleep 04/02/18 01/29/20 History ondansetron 4 mg disintegrating 4 mg PO Q8H PRN PRN Nausea #10 01/21/19 Unknown Rx tablet TABLETS divalproex 250 mg tablet,delayed 500 mg (2 x 250 mg) PO BIDCM #60 02/05/20 Unknown Rx release TABLETS melatonin 3 mg tablet 3 mg PO QHS PRN PRN Insomnia #30 02/05/20 Unknown Rx TABLETS gabapentin 100 mg capsule 200 mg PO TID 06/12/20 Unknown History hydroxyzine pamoate 25 mg capsule 25 - 50 mg PO TID 09/11/20 Unknown History promethazine 25 mg tablet 25 mg PO Q6H PRN PRN Nausea #10 06/22/21 Unknown Rx TABLETS diphenoxylate-atropine 2.5 1 tab PO 4X/DAY PRN PRN diarrhea 5 06/25/22 Unknown Rx mg-0.025 mg tablet (Lomotil) days #20 tabs ferrous sulfate 325 mg (65 mg 325 mg PO BID 05/06/23 Unknown History iron) tablet (FeroSul) oxycodone-acetaminophen 5 mg-325 1 tab PO Q6H PRN pain 3 days #12 08/07/23 Unknown Rx mg tablet (Percocet) tabs divalproex 500 mg tablet,delayed 500 mg PO DAILY 09/12/23 Unknown History release (Depakote) Allergy/AdvReac Type Severity Reaction Status Date / Time naproxen (From Naprosyn) Allergy Hives Verified 09/14/23 13:31 Surgical History Hx of elbow surgery Hx of tubal ligation Hx of appendectomy Social History Smoking Status: Never smoker substance use type: amphetamines ROS ROS ED ROS Narrative Denies recent illness. Review of Systems ROS Unobtainable: Denies due to encephalopathy Constitutional Constitutional ED: Denies chills or fever(s) Eyes Eyes: Denies blurry vision ENT ENT ED: Denies ear pain Cardiovascular Cardiovascular: Denies chest pain Respiratory/Chest Respiratory/Chest: Denies dyspnea Gastrointestinal Gastrointestinal: Denies abdominal pain Genitourinary Genitourinary ED: Denies dysuria Musculoskeletal Musculoskeletal: Reports back pain; Denies arthralgias Integumentary Denies abscess or Abrasions Neurologic Neurologic: Denies headache(s) Psychiatric Psychiatric: Denies anxiety or depression Endocrine Endocrinology: Denies cold intolerance Hematologic/Lymphatic Hematologic/Lymphatic: Denies easy bleeding, easy bruising or lymphadenopathy Allergic/Immunologic Allergic/Immunologic ED: Denies mouth swelling EXAM Physical Exam Narrative Exam Narrative: Well-appearing 43-year-old female hallway chair. Vital signs stable afebrile. H EENT exam pupils are reactive light. Extra motions are intact. Dentition intact. No trauma to her head or face. Neck nontender. Normal range of motion. Trachea midline. Lungs clear to auscultation bilateral. Heart regular rhythm no murmur. Chest wall ribs nontender. Abdomen soft nontender. No bruising. Back no cervical, thoracic or lumbar spine tenderness. She is paravertebral tenderness near her upper thoracic spine. There is no bruising or ecchymosis. No lesions. No rashes or abrasions. Exam is consistent with soft tissue contusion. She is moving all 4 extremities. Normal motor strength sensation. Able to stand without any difficulty. Neurologically she is awake and alert with no focal motor deficits. Const Vital Signs: 09/14/23 13:28 Temperature 97.1 F L Temperature Source Temporal Pulse Rate 100 Respiratory Rate 18 Blood Pressure 100/79 Blood Pressure Mean 86 Pulse Ox 100 Oxygen Delivery Method Room Air Positive well nourished and well developed; Negative for obese, cachectic, contractures or unkempt General Appearance ED: well developed and NAD; Negative for unkempt, cachectic, contractures or pallor Nutritional Appearance: Negative for cachectic or obese HEENT Reports moist mucous membranes; Denies dry mucous membranes Negative for trauma or tenderness Mouth ED: No dry mucous membranes Mouth: No dry mucous membranes Eyes PERRL and EOMs intact bilaterally Neck no lymphadenopathy, supple and no JVD General: Negative for tenderness Resp normal respiratory effort and clear to auscultation bilaterally Effort and Inspection: Negative for pain with movement Auscultation: Negative for rales, rhonchi or wheezes Cardio regular rate, regular rhythm, S1 normal heart sound, S2 normal heart sound and no murmurs Palpation: Negative for palpable S3 Rate: Negative for bradycardia or tachycardic Rhythm: Negative for abnormal rhythm Bruits: Negative for other GI normal to inspection, nondistended, normoactive bowel sounds, soft to palpation, non-tender, non-distended and no masses Inspection: Negative for abdominal distention Palpation: Negative for tender, guarding or rebound tenderness present Back/Spine normal to inspection and no thoracic nor lumbar tenderness Back/Spine Narrative: Parathoracic soft tissue tenderness. Thoracic Spine / Upper Back: paraspinal muscle tenderness Lumbar Spine / Lower Back: Negative for ROM limited Extremity normal to inspection and no clubbing, cyanosis or edema General Extremety ED: Negative for edema or tenderness General Extremity: Negative for edema Neuro oriented x3 Sensorium / Orientation: alert; Negative for confused, lethargic or stuporous Motor Exam: strength 5/5 throughout Psych mental status grossly normal Appearance: Negative for unkempt Attitude: No agitated Mood & Affect: Negative for depressed, sad or tearful Skin no rashes or lesions noted and no wounds General Skin Exam: Negative for jaundice or pallor Lesions: No lesion noted Rashes: No rashes noted Trauma: Negative for abrasion, puncture or other Wounds: Negative for wounds noted MDM MDM MDM Narrative Medical decision making narrative: 43-year-old female with history of seizures had a seizure today fell was seen Emergency Department earlier today had CAT scan of her head neck and thoracic spine all unremarkable. Her exam is consistent with paraspinal soft tissue contusion. She was given Tylenol for pain and discharged home. She is comfortable with the plan. Discharge Plan Triage Chief Complaint: Back ED Provider: Callum Mckay Dx/Rx/DC Orders Clinical Impression: Seizure, Fall, Back contusion Instructions: ED Back Contusion Prescriptions: No Action amitriptyline 100 MG tablet 300 mg PO QHS ondansetron 4 MG tablet 4 mg PO Q8H PRN PRN (Reason: Nausea) Qty: 10 0RF divalproex 250 MG tablet 500 mg PO BIDCM Qty: 60 0RF melatonin 3 MG tablet 3 mg PO QHS PRN PRN (Reason: Insomnia) Qty: 30 0RF gabapentin 100 MG capsule 200 mg PO TID hydroxyzine pamoate 25 mg capsule 25 - 50 mg PO TID Patient Comments: Take 1-2 capsules by mouth three times daily as needed for Anxiety. promethazine [promethazine] 25 MG tablet 25 mg PO Q6H PRN PRN (Reason: Nausea) Qty: 10 0RF diphenoxylate-atropine [Lomotil] 2.5-0.025 mg tablet 1 tab PO 4X/DAY PRN PRN (Reason: diarrhea) 5 Days Qty: 20 0RF ferrous sulfate [FeroSul] 325 mg (65 mg iron) tablet 325 mg PO BID Patient Comments: Take 1 tablet by mouth twice daily. oxycodone-acetaminophen [Percocet] 5-325 mg tablet 1 tab PO Q6H PRN (Reason: pain) 3 Days Qty: 12 0RF divalproex [Depakote] 500 mg tablet,delayed release (DR/EC) 500 mg PO DAILY Primary Care Provider: Giancarlo Espinosa Referrals: Giancarlo Espinosa MD [Primary Care Provider] - As Needed Activity Restrictions/Additional Instructions: Tylenol for pain Motrin if you are able to take that. Ice any sore areas. Hot shower and warm back to relax your back muscles. Massage. Your CAT scans were reviewed they were unremarkable. There is no broken bones. Follow-up with your doctor as needed. Print Language: Djib[place]ian Disposition Disposition: Home, Self Care
[2023-09-14] MEDS: Acetaminophen 500 MG Tablet 1000 MG PO (15:47)
== END 2023-09-14 15:50 | disposition home or self-care (01) ==
PROVIDERS: Emergency Provider Emergency Medicine; PCP Family Medicine; Visit Provider Emergency Medicine
DX: R56.9 Unspecified convulsions (principal); S20.229A Contusion of unspecified back wall of thorax, initial encounter; W19.XXXA Unspecified fall, initial encounter

== ENCOUNTER 2023-10-14 10:28 | Emergency (ER) | payer MEDICAID, SELFPAY ==
[2023-10-14 10:29] VITALS: BP 101/82; PULSE 75; RESP 18; TEMP 36.9; O2SAT 99; BMI 26.9
--- NOTE | 2023-10-14 11:19 | EX.ED.GENINJ ---
HPI History of Present Illness Chief Complaint: Nausea/Vomiting/Diarrhea PFSH PFSH Medical History Multiple sclerosis IUD (intrauterine device) in place Seizures GERD (gastroesophageal reflux disease) Transverse myelitis Home Medications ?Medication ?Instructions ?Recorded ?Last Taken ?Type amitriptyline 100 mg tablet 300 mg PO QHS sleep 04/02/18 01/29/20 History ondansetron 4 mg disintegrating 4 mg PO Q8H PRN PRN Nausea #10 01/21/19 Unknown Rx tablet TABLETS divalproex 250 mg tablet,delayed 500 mg (2 x 250 mg) PO BIDCM #60 02/05/20 Unknown Rx release TABLETS melatonin 3 mg tablet 3 mg PO QHS PRN PRN Insomnia #30 02/05/20 Unknown Rx TABLETS promethazine 25 mg tablet 25 mg PO Q6H PRN PRN Nausea #10 06/22/21 Unknown Rx TABLETS diphenoxylate-atropine 2.5 1 tab PO 4X/DAY PRN PRN diarrhea 5 06/25/22 Unknown Rx mg-0.025 mg tablet (Lomotil) days #20 tabs ferrous sulfate 325 mg (65 mg 325 mg PO BID 05/06/23 Unknown History iron) tablet (FeroSul) gabapentin 800 mg tablet 800 mg PO TID 10/14/23 Unknown History Allergy/AdvReac Type Severity Reaction Status Date / Time naproxen (From Naprosyn) Allergy Hives Verified 10/14/23 10:33 Surgical History Hx of elbow surgery Hx of tubal ligation Hx of appendectomy Social History Smoking Status: Never smoker substance use type: amphetamines EXAM Physical Exam Const Vital Signs: 10/14/23 10:29 10/14/23 10:44 10/14/23 12:28 Temperature 98.4 F Temperature Source Oral Pulse Rate 75 62 Respiratory Rate 18 16 Respiratory Pattern Normal Blood Pressure 101/82 H 105/56 L Blood Pressure Mean 88 72 Pulse Ox 99 100 Oxygen Delivery Method Room Air Room Air MDM MDM MDM Narrative Medical decision making narrative: HISTORY OF PRESENT ILLNESS: 43-year-old female presents with nausea, vomiting, diarrhea, fever. Notes 2 days of symptoms. Denies recent travel, new foods, recent antibiotics. No sick contacts. Notes pain everywhere. Denies chest pain, denies headache. Denies any drug use. Denies alcohol use. Denies any blood in her urine or stool. Endorses history of tubal ligation and appendectomy REVIEW OF SYSTEMS: Pertinent positives: Nausea, vomiting, diarrhea, fever Pertinent negatives: Chest pain, shortness of breath, headache PHYSICAL EXAM: Nursing triage notes reviewed, Vital signs reviewed Constitutional: please see mdm HENT: MMM Eyes: Pupils equal round and reactive to light, Extraocular muscles intact Neck: No stridor, no JVD, full neck ROM Lungs: Clear to auscultation, No wheezing or rales. No increased work of breathing, no conversational dyspnea, no accessory muscle use, no nasal flaring. No respiratory distress noted Heart: Regular rate and rhythm, No murmurs, No rubs and No gallops, 2+ distal pulses (radial, femoral, posterior tibial) in all extremities Abdomen: Soft, there is no tenderness, rigidity, rebound or guarding, no obvious peritoneal signs, no palpable pulsatile abdominal masses, no auscultated abdominal bruit : No CVAT Extremities: No edema Neuro: No focal neurological deficits, cranial nerves II through XII intact, 5/5 strength in all extremities. Intact sensation to light touch in all extremities, 2+ reflexes bilateral patella tendons. Normal gait. No ataxia. Skin: No rash or lesions noted MEDICAL DECISION MAKING: Chief Complaint: Nausea vomiting diarrhea, fever External records reviewed: Reviewed prior blood pressure trends Factors affecting care: Methenamine intoxication, drug overdose, seizure disorder on Depakote Social determinants of health: History methamphetamine abuse History obtained from others: EMS, significant other Consults: none [facility] Narrative: Patient was initially afebrile, nontoxic-appearing had soft blood pressure (similar to prior blood pressure reading noted from ER documentation from 09/14/2023). I considered the following differential diagnosis: AAA, small bowel obstruction, abdominal perforation, appendicitis, pancreatitis, hepatobiliary pathology (acute cholecystitis), mesenteric ischemia, pathology (ie nephrolithiasis, pyelonephritis). In addition to this dehydration, acute kidney injury, electro disturbance given volume loss I treated patient 1 L normal saline, Zofran and Toradol for resuscitation and symptom control. I obtained a broad lab and imaging workup to further elucidate etiology the patient complaint. ALL IMAGES (IF OBTAINED) HAVE BEEN PERSONALLY REVIEWED AND INTERPRETED BY MYSELF. EKG with normal sinus rhythm, normal axis, normal intervals, no STEMI CBC with no leukocytosis, no anemia or thrombocytopenia BMP without evidence of significant electrolyte abnormalities, no anion gap, no acute kidney injury. Lactate is wnl indicating no end-organ hypoperfusion and/or hypoxia. High-sensitivity troponin is negative, no evidence of myocardial ischemia Lipase is wnl indicating no pancreatic inflammation. LFTs show no evidence of hepatobiliary pathology. CT scan abdomen pelvis shows no evidence of acute surgical pathology The synthesis of the patient's history, physical exam, labs images suggest no acute life-limiting allergy specifically no sign of mesenteric STEMI, AAA, SBO, surgical process abdomen, hepatobiliary pathology, significant lecture disturbance, acute kidney injury or signs of objective dehydration. I suspect the patient is clinically dehydrated and as such encouraged p.o. fluids in the form of Body Armor and Pedialyte at home. Gave Zofran for nausea vomiting control. Encouraged Tylenol ibuprofen for pain control. Encourage close outpatient follow-up for reassessment. Gave strict return precautions as well. I see nothing that would suggest an acute abdomen at this time. Based on history physical exam, risk factors, I have a low for acute surgical abdominal pathology, is very low. There is no evidence of peritonitis sepsis or toxicity at this time. I feel the patient can be managed as an outpatient with follow-up with her primary physician in the next 24 to 48 hours or soon as possible. Instructions have been given for the patient to return to the ED for worsening pain, anorexia, high fevers, intractable vomiting or bleeding. The patient and/or family, caregivers express understanding. The patient and/or family, caregivers agrees with the plan. Total critical care time today provided was at least 0 minutes. This excludes separately billable procedures. Critical care time (if documented) is secondary to the patient having high probability of clinically significant/life threatening deterioration in the patient's condition which required my urgent intervention. Impression: 1. Abdominal pain 2. Nausea, vomiting and diarrhea 3. Dehydration Dispo: Discharge home This note was generated with Lenet dictation software. It may contain incorrect words, spelling, and punctuation that were not noted in review of the chart prior to signing. Lab Data Labs: Laboratory Results - last 24 hr 10/14/23 10/14/23 12:00 12:05 WBC 6.4 RBC 3.88 L Hgb 12.0 Hct 35.5 L MCV 91.5 MCH 30.9 MCHC 33.8 RDW Std Deviation 41.1 RDW Coeff of Walt 12.4 Plt Count 378 MPV 9.6 Immature Gran % (Auto) 0.300 Neut % (Auto) 67.0 Lymph % (Auto) 24.8 [place] % (Auto) 6.3 Eos % (Auto) 1.1 Baso % (Auto) 0.5 Absolute Neuts (auto) 4.3 Absolute Lymphs (auto) 1.58 Nucleated RBC % 0 Sodium 139 Potassium 3.6 Chloride 106 Carbon Dioxide 25.0 Anion Gap 8 BUN 14 Creatinine 0.58 Estim Creat Clear Calc 112.18 Est GFR (MDRD) Af Amer 144 Est GFR (MDRD) Non-Af 119 BUN/Creatinine Ratio 23.9 H Glucose 111 H Lactic Acid 1.1 Calcium 9.2 Total Bilirubin 0.40 Direct Bilirubin 0.10 AST 18 ALT 18 Alkaline Phosphatase 103 Troponin I High Sens 3 Total Protein 7.1 Albumin 3.2 Globulin 3.9 Lipase 21 Radiography Diagnostic Testing: Clinical Impression(s) from Imaging Studies Abdomen/Pelvis CT 10/14/23 11:45 IMPRESSION: Enlarged uterus with a large fibroid as described. IUD is seen within the endometrium. This is unchanged. Electronically Signed: Reid Wright MD at 12:52 EDT , Discharge Plan Triage Chief Complaint: Nausea/Vomiting/Diarrhea Other Complaint: Fever ED Provider: Eric Rock Dx/Rx/DC Orders Prescriptions: No Action amitriptyline 100 MG tablet 300 mg PO QHS ondansetron 4 MG tablet 4 mg PO Q8H PRN PRN (Reason: Nausea) Qty: 10 0RF divalproex 250 MG tablet 500 mg PO BIDCM Qty: 60 0RF melatonin 3 MG tablet 3 mg PO QHS PRN PRN (Reason: Insomnia) Qty: 30 0RF promethazine [promethazine] 25 MG tablet 25 mg PO Q6H PRN PRN (Reason: Nausea) Qty: 10 0RF diphenoxylate-atropine [Lomotil] 2.5-0.025 mg tablet 1 tab PO 4X/DAY PRN PRN (Reason: diarrhea) 5 Days Qty: 20 0RF ferrous sulfate [FeroSul] 325 mg (65 mg iron) tablet 325 mg PO BID Patient Comments: Take 1 tablet by mouth twice daily. gabapentin 800 mg tablet 800 mg PO TID Primary Care Provider: Giancarlo Espinosa Referrals: Giancarlo Espinosa MD [Primary Care Provider] - Print Language: Cambodian
--- NOTE | 2023-10-14 11:44 | EKG12_ITS ---
Test Reason : N/V/D Blood Pressure : / mmHG Vent. Rate : 068 BPM Atrial Rate : 068 BPM P-R Int : 204 ms QRS Dur : 086 ms QT Int : 424 ms P-R-T Axes : 041 033 013 degrees QTc Int : 450 ms Normal sinus rhythm Nonspecific T wave abnormality Abnormal ECG Confirmed by Endy Dickerson ([id number]), video editor ALICIA QUESADA ([id number]) on 10/17/2023 2:03:01 PM Referred By: SWAPNA Confirmed By:Endy Dickerson
--- NOTE | 2023-10-14 11:45 | CT_ITS ---
STUDY: CT ABDOMEN AND PELVIS WITH CONTRAST REASON FOR EXAM: Female, 43 years old. Abdominal pain RADIATION DOSAGE (If Supplied By Facility): CTDIvol = ( 11.61 ) mGy, DLP = ( 559.48 ) mGycm TECHNIQUE: Transaxial images were obtained from the dome of the diaphragm to the symphysis pubis without oral contrast. IV 100mL [id number]-[id number] was administered. Sagittal and coronal images were reconstructed. Individualized dose optimization techniques were used for this CT. COMPARISON: Comparison is made with prior study dated June 24, 2022. FINDINGS: The visualized lung bases are unremarkable. The visualized portions of the heart are within normal limits. Normal liver. Normal gallbladder and extrahepatic biliary system. Normal spleen. Normal pancreas. Normal bilateral adrenal glands. Normal right kidney. Normal left kidney. Normal visualized stomach. Normal small intestine. Normal colon. The appendix is visualized and appears normal. Normal abdominal aorta. Normal inferior vena cava. Normal retroperitoneum. Normal urinary bladder. Once again, there is evidence of an enlarged fibroid uterus. There is a 6.1 cm x 7.7 cm x 7.8 cm hypodensity in the body and fundal portion of uterus suggestive of a degenerating uterine fibroid. This is unchanged. IUD is seen within the endometrium. Normal abdominal wall. Normal osseous structures. CT/Abdomen/Pelvis W IV Cont ONLY IMPRESSION: Enlarged uterus with a large fibroid as described. IUD is seen within the endometrium. This is unchanged. Electronically Signed: Reid Wright MD at 12:52 EDT ,
[2023-10-14] MEDS: Ketorolac 15 MG/ML Vial IV (12:08)
[2023-10-14] MEDS: Ondansetron 4 MG/2 ML Vial IV (12:09)
[2023-10-14] MEDS: 0.9% Normal Saline (1000mL) 1,000 ML 999 ML IV (12:11)
[2023-10-14 12:25] LABS: Absolute Lymphocyte Count 1.58 X10^3/uL (0.83-4.51); Absolute Neutrophil Count 4.3 X10^3/uL (2.0-7.7); Basophil# 0.03 X10^3/uL; Basophil% 0.5 % (0-1); Eosinophil# 0.07 X10^3/uL; Eosinophils% 1.1 % (0-5); Hematocrit 35.5 % (37-47); Lymphocyte # 1.58 X10^3/ul (0.83-4.51); Lymphocyte % 24.8 % (19-41); Mean Corp Hgb Conc 33.8 g/dL (32-36); Mean Corpuscular Hgb 30.9 pg (27.0-32.0); Mean Corpuscular Volume 91.5 fL (81-99); Mean Platelet Vol. 9.6 fl (6.2-12.0); Monocyte% 6.3 % (0-10); NRBC Flagged by Analyzer 0 % (0-5); Neutrophil # 4.26 X10^3/uL (2.7-7.7); Platelet Count 378 K/mm3 (150-450); RBC Distribution Width CV 12.4 % (11.6-14.6); RBC Distribution Width SD 41.1 fl (35.1-43.9); Red Blood Count 3.88 M/mm3 (4.2-5.4); White Blood Count 6.4 K/mm3 (4.4-11.0)
[2023-10-14 12:28] VITALS: BP 105/56; PULSE 62; RESP 16; O2SAT 100
[2023-10-14 12:41] LABS: AST(SGOT) 18 U/L (15-37); Alanine Aminotransfer ALT/SGPT 18 U/L (13-56); Albumin, Serum 3.2 g/dL (3.2-5.0); Alkaline Phosphatase 103 U/L (45-117); Anion Gap 8 (5-15); BUN 14 mg/dL (7-18); BUN/Creat Ratio 23.9 RATIO (10-20); Calcium,Total 9.2 mg/dL (8.5-10.1); Chloride 106 mmol/L (98-107); Creatinine, Serum 0.58 mg/dL (0.55-1.02); EST Glomerular Filtration Rate 119 mL/min (>60); Est Glom Filt Rate - Afr Amer 144 mL/min (>60); Estimated Creatinine Clearance 112.18 ml/min; Globulin 3.9 g/dL (2.2-4.2); Glucose 111 mg/dL (74-106); Lipase 21 U/L (13-75); Potassium 3.6 mmol/L (3.5-5.1); Protein, Total 7.1 g/dL (6.4-8.2); Sodium Level 139 mmol/L (136-145); Troponin-I HS 3 pg/mL (3.0-54.0)
[2023-10-14 13:11] LABS: Lactic Acid 1.1 mmol/L (0.4-1.9)
[2023-10-14 13:34] VITALS: BP 119/71; PULSE 54; RESP 16; TEMP 36.4; O2SAT 98
== END 2023-10-14 13:43 | disposition home or self-care (01) ==
PROVIDERS: Emergency Provider Emergency Medicine; PCP Family Medicine; Visit Provider Emergency Medicine
DX: R10.9 Unspecified abdominal pain (principal); G35 Multiple sclerosis; R11.2 Nausea with vomiting, unspecified; R19.7 Diarrhea, unspecified; E86.0 Dehydration
CPT/HCPCS: 74177; 80048; 80076; 83605; 83690; 84484; 85025; 93005; 96374; 96375; 99284; Q9967; J2405

== ENCOUNTER 2023-10-16 22:01 | Emergency (ER) | payer MEDICAID, SELFPAY ==
[2023-10-16 22:02] VITALS: BP 132/96; PULSE 79; RESP 16; TEMP 37.1; O2SAT 99; BMI 27.0
[2023-10-16 22:53] LABS: Absolute Neutrophil Count 2.9 X10^3/uL (2.0-7.7); Basophil# 0.05 X10^3/uL; Basophil% 0.8 % (0-1); Eosinophil# 0.06 X10^3/uL; Eosinophils% 0.9 % (0-5); Hematocrit 38.1 % (37-47); Hemoglobin 12.3 g/dL (12.0-15.0); Lymphocyte % 42.3 % (19-41); Mean Corp Hgb Conc 32.3 g/dL (32-36); Mean Corpuscular Hgb 30.1 pg (27.0-32.0); Mean Corpuscular Volume 93.4 fL (81-99); Mean Platelet Vol. 9.7 fl (6.2-12.0); Monocyte# 0.83 X10^3/uL; Monocyte% 12.5 % (0-10); NRBC Flagged by Analyzer 0 % (0-5); Neutrophil # 2.86 X10^3/uL (2.7-7.7); Neutrophil % 43.2 % (47-70); Platelet Count 419 K/mm3 (150-450); RBC Distribution Width CV 12.5 % (11.6-14.6); RBC Distribution Width SD 43.1 fl (35.1-43.9); Red Blood Count 4.08 M/mm3 (4.2-5.4); White Blood Count 6.6 K/mm3 (4.4-11.0)
[2023-10-16 23:02] LABS: Internal QC Validated? YES +Cl - CLEAR BKGD; Pregnancy, Serum, hCG Quali. NEGATIVE Negative; Record Kit Lot#, Serum Preg. 772476
[2023-10-16] MEDS: 0.9% Normal Saline (1000mL) 1,000 ML 999 ML IV (23:14)
[2023-10-16] MEDS: MethylPREDNISolone 125 MG/2 ML Vial IV (23:15)
[2023-10-16] MEDS: Morphine 4 MG/ML Syringe IV (23:18)
[2023-10-16] MEDS: Ketorolac 15 MG/ML Vial IV (23:19)
[2023-10-16] MEDS: VALPROATE SODIUM IV (23:23)
[2023-10-16] MEDS: WATER IV (23:23)
[2023-10-16] MEDS: DEXTROSE 5% IV (23:23)
[2023-10-16] MEDS: Ondansetron 4 MG/2 ML Vial IV (23:28)
[2023-10-16 23:31] LABS: ALB/GLOB Ratio 0.9 RATIO (0.9-2.4); AST(SGOT) 15 U/L (15-37); Alanine Aminotransfer ALT/SGPT 18 U/L (13-56); Albumin, Serum 3.5 g/dL (3.2-5.0); Alkaline Phosphatase 98 U/L (45-117); Anion Gap 6 (5-15); BUN 9 mg/dL (7-18); Calcium,Total 8.9 mg/dL (8.5-10.1); Chloride 108 mmol/L (98-107); Creatinine, Serum 0.69 mg/dL (0.55-1.02); EST Glomerular Filtration Rate 98 mL/min (>60); Est Glom Filt Rate - Afr Amer 119 mL/min (>60); Estimated Creatinine Clearance 94.43 ml/min; Glucose 91 mg/dL (74-106); Potassium 2.7 mmol/L (3.5-5.1); Protein, Total 7.5 g/dL (6.4-8.2); Sodium Level 141 mmol/L (136-145)
--- NOTE | 2023-10-16 23:49 | EX.ED.DYSGE1 ---
HPI History of Present Illness Chief Complaint: Nausea/Vomiting Informant: patient Narrative Narrative: Patient states she has had vomiting and diarrhea and subjective fevers and chills for the past 5-7 days, and in the past 2 days she has had 3-4 total seizures, after which she has severe body aches all over. She has a history of seizures longstanding, she states it is related to her MS. She did see neurology for all of this but does not follow with them regularly, just her PCP. She is on gabapentin and Depakote, but later admits that because of lack of health insurance and financial reasons, she is not taking her medications and has not taken any for the last month. She states her last seizure was about 9 hours ago. She presents saying she is nauseated, has pain all over mostly extremities, she is wanting medication for both of those as well as steroids for MS flare, and to go home so she can go to work tomorrow because she does not want to lose her job and she is going to have medical insurance with that job here soon. With regards to the seizures that she has had, she was amnestic to them, she felt them coming on, then felt like she had 1 afterwards. States her boyfriend witnessed them even if he is not here, he told her that they were generalized tonic-clonic seizures and she had a postictal phase, which is consistent with what she states she has had in the past. [facility] Medical History Multiple sclerosis IUD (intrauterine device) in place Seizures GERD (gastroesophageal reflux disease) Transverse myelitis Home Medications ?Medication ?Instructions ?Recorded ?Last Taken ?Type amitriptyline 100 mg tablet 300 mg PO QHS sleep 04/02/18 01/29/20 History melatonin 3 mg tablet 3 mg PO QHS PRN PRN Insomnia #30 02/05/20 Unknown Rx TABLETS promethazine 25 mg tablet 25 mg PO Q6H PRN PRN Nausea #10 06/22/21 Unknown Rx TABLETS diphenoxylate-atropine 2.5 1 tab PO 4X/DAY PRN PRN diarrhea 5 06/25/22 Unknown Rx mg-0.025 mg tablet (Lomotil) days #20 tabs ferrous sulfate 325 mg (65 mg 325 mg PO BID 05/06/23 Unknown History iron) tablet (FeroSul) divalproex 250 mg tablet,delayed 500 mg (2 x 250 mg) PO BIDCM 14 10/17/23 Unknown Rx release days #56 TABLETS gabapentin 800 mg tablet 800 mg PO TID 14 days #42 tabs 10/17/23 Unknown Rx ondansetron 8 mg disintegrating 8 mg PO Q8H PRN nausea and 10/17/23 Unknown Rx tablet vomiting #20 tabs potassium chloride 20 mEq 20 meq PO BID #14 tabs 10/17/23 Unknown Rx tablet,extended release prednisone 20 mg tablet 40 mg (2 x 20 mg) PO DAILY #10 10/17/23 Unknown Rx TABLETS Allergy/AdvReac Type Severity Reaction Status Date / Time naproxen (From Naprosyn) Allergy Hives Verified 10/14/23 10:33 Surgical History Hx of elbow surgery Hx of tubal ligation Hx of appendectomy Social History Smoking Status: Never smoker substance use type: amphetamines ROS ROS ED Constitutional Constitutional ED: Reports body ache(s), chills, fever(s) and subjective Eyes Eyes: Denies change in vision or diplopia ENT ENT ED: Denies rhinorrhea or sore throat Cardiovascular Cardiovascular: Denies chest pain or palpitations Respiratory/Chest Respiratory/Chest: Denies cough or dyspnea Gastrointestinal Gastrointestinal: Reports diarrhea, nausea and vomiting; Denies abdominal pain Genitourinary Genitourinary ED: Denies dysuria or hematuria Musculoskeletal Musculoskeletal: Denies back pain or neck pain Integumentary Denies abscess or rash Neurologic Neurologic: Reports seizures; Denies headache(s), paresthesias or weakness Psychiatric Psychiatric: Denies suicidal thoughts EXAM Physical Exam Const Vital Signs: 10/16/23 22:02 10/16/23 23:54 10/17/23 02:00 Temperature 98.7 F Temperature Source Oral Pulse Rate 79 54 L 55 L Respiratory Rate 16 16 16 Blood Pressure 132/96 H 115/81 H 131/93 H Blood Pressure Mean 108 92 105 Pulse Ox 99 100 100 Oxygen Delivery Method Room Air Room Air Room Air Positive well nourished and well developed General Appearance ED: well developed and NAD HEENT Reports moist mucous membranes normocephalic and atraumatic Eyes PERRL and EOMs intact bilaterally Neck full ROM, no lymphadenopathy and supple General: Negative for tenderness Resp normal respiratory effort and clear to auscultation bilaterally Cardio regular rate, regular rhythm and no murmurs GI non-tender and non-distended Auscultation: normoactive bowel sounds Palpation: soft Back/Spine no CVA tenderness General Back: other FROM Extremity normal to inspection General Extremety ED: Negative for edema, pulses abnormal or tenderness General Extremity: Negative for edema or pulses abnormal Neuro oriented x3, CN's II-XII intact bilaterally and no sensory deficits noted Sensorium / Orientation: awake and alert Motor Exam: strength 5/5 throughout Psych mental status grossly normal Skin no rashes or lesions noted and no wounds MDM MDM MDM Narrative Medical decision making narrative: When I discussed getting a valproic acid level in addition to other labs on her, she states do not bother, I have not been taking it. I advised her I am happy to load her with IV valproic acid, however if she is not going to fill and take the medication this may be pointless. She states she wants to but it is too expensive and she does not have as insurance right now. I think loading her Depakote still the right thing so that we can at least keep her seizure-free until she gets through the MS flare which she states typically will keep her from having more seizures, and in the meantime I gave her pain medication, nausea medications, some IV fluids. It is noted that she is very hypokalemic which may or may not be contributing to this, but probably from GI losses from her illness. Her abdomen is benign I do not think she needs advanced imaging there. She is in agreement. I have also ordered potassium replacement and oral and parenteral form. She was given all of this and had no further seizure activity emergency department. Patient doing well desires to go home, given a prescription for prednisone, valproic acid, potassium, and Zofran. Lab Data Attestation: I reviewed the patient's lab results. Labs: Laboratory Results - last 24 hr 10/16/23 10/16/23 22:09 23:55 WBC 6.6 RBC 4.08 L Hgb 12.3 Hct 38.1 MCV 93.4 MCH 30.1 MCHC 32.3 RDW Std Deviation 43.1 RDW Coeff of Walt 12.5 Plt Count 419 MPV 9.7 Immature Gran % (Auto) 0.300 Neut % (Auto) 43.2 L Lymph % (Auto) 42.3 H [place] % (Auto) 12.5 H Eos % (Auto) 0.9 Baso % (Auto) 0.8 Absolute Neuts (auto) 2.9 Absolute Lymphs (auto) 2.80 Nucleated RBC % 0 Sodium 141 Potassium 2.7 L* Chloride 108 H Carbon Dioxide 27.0 Anion Gap 6 BUN 9 Creatinine 0.69 Estim Creat Clear Calc 94.43 Est GFR (MDRD) Af Amer 119 Est GFR (MDRD) Non-Af 98 BUN/Creatinine Ratio 13.0 Glucose 91 Calcium 8.9 Total Bilirubin 0.20 AST 15 ALT 18 Alkaline Phosphatase 98 Total Protein 7.5 Albumin 3.5 Globulin 4.0 Albumin/Globulin Ratio 0.9 Serum , Qual NEGATIVE Urine Color Yellow Urine Clarity Clear Urine pH 6.5 Ur Specific [place] 1.015 Urine Protein Negative Urine Glucose (UA) Normal Urine Ketones Negative Urine Occult Blood Negative Urine Nitrite Negative Urine Bilirubin Negative Urine Urobilinogen Normal Ur Leukocyte Esterase Negative Urine RBC 0 SEEN Urine WBC 0 SEEN Ur Squamous Epith Cells 0 SEEN Urine Bacteria 0 SEEN Urine Mucus 1+ Discharge Plan Triage Chief Complaint: Nausea/Vomiting ED Provider: Jovanni Santos Dx/Rx/DC Orders Clinical Impression: Gastroenteritis, Seizures, Hx of seizure disorder, Multiple sclerosis, Noncompliance with medications, Hypokalemia due to excessive gastrointestinal loss of potassium Instructions: Viral Gastroenteritis, ED Hypokalemia Prescriptions: New potassium chloride 20 mEq tablet extended release 20 meq PO BID Qty: 14 0RF ondansetron 8 mg tablet,disintegrating 8 mg PO Q8H PRN (Reason: nausea and vomiting) Qty: 20 0RF prednisone 20 mg tablet 40 mg PO DAILY Qty: 10 0RF Continued amitriptyline 100 MG tablet 300 mg PO QHS melatonin 3 MG tablet 3 mg PO QHS PRN PRN (Reason: Insomnia) Qty: 30 0RF promethazine 25 MG tablet 25 mg PO Q6H PRN PRN (Reason: Nausea) Qty: 10 0RF diphenoxylate-atropine [Lomotil] 2.5-0.025 mg tablet 1 tab PO 4X/DAY PRN PRN (Reason: diarrhea) 5 Days Qty: 20 0RF ferrous sulfate [FeroSul] 325 mg (65 mg iron) tablet 325 mg PO BID Patient Comments: Take 1 tablet by mouth twice daily. divalproex 250 MG tablet 500 mg PO BIDCM 14 Days Qty: 56 0RF gabapentin 800 mg tablet 800 mg PO TID 14 Days Qty: 42 0RF Primary Care Provider: Giancarlo Espinosa Referrals: Giancarlo Espinosa MD [Primary Care Provider] - As soon as possible Print Language: Georgian Disposition Disposition: Home, Self Care
[2023-10-16 23:54] VITALS: BP 115/81; PULSE 54; RESP 16; O2SAT 100
[2023-10-17 00:01] LABS: Bacteria 0 SEEN /hpf (None Seen); Red Blood Cells-Urine 0 SEEN /hpf (0-5); Squamous Epithelial Cells - UA 0 SEEN /hpf (5-10); White Blood Cells 0 SEEN /hpf (0-5)
[2023-10-17 00:19] LABS: Color, Urine Yellow (Yellow); Glucose, Dipstick Normal (Normal); Ketone-Dipstick Negative (Negative); Leukocyte Esterase-Dipstick Negative /ul (Negative); Nitrite-Dipstick Negative (Negative); Occult Blood-Urine Negative /ul (Negative); Protein-Dipstick Negative (Negative); Specific Gravity, Urine 1.015 (1.002-1.030); Urine Bilirubin Dipstick Negative (Negative); Urine Clarity Clear (Clear); Urine Urobilinogen Normal (Normal); Urine pH 6.5 (5.0 - 8.0)
[2023-10-17] MEDS: Potassium Chloride 10mEq/100mL 10 MEQ/100 ML IV.SOLN. 100 MEQ IV BOLUS (00:35)
[2023-10-17 00:39] LABS: Mucous, Urine 1+ /hpf (<or=2+)
[2023-10-17] MEDS: Potassium Chloride Oral Tablet 20 MEQ 40 MEQ PO (01:08)
[2023-10-17] MEDS: Metoclopramide 10 MG/2 ML Vial 5 MG IV (01:18)
[2023-10-17 02:00] VITALS: BP 131/93; PULSE 55; RESP 16; O2SAT 100
[2023-10-17 02:59] VITALS: BP 131/75; PULSE 72; RESP 15; TEMP 36.4; O2SAT 98
== END 2023-10-17 03:00 | disposition home or self-care (01) ==
PROVIDERS: Emergency Provider Emergency Medicine; PCP Family Medicine; Visit Provider Emergency Medicine
DX: K52.9 Noninfective gastroenteritis and colitis, unspecified (principal); G35 Multiple sclerosis; G40.909 Epilepsy, unspecified, not intractable, without status epilepticus; E87.6 Hypokalemia; T42.6X6A Underdosing of other antiepileptic and sedative-hypnotic drugs, initial encounter; Z91.141 Patient's other noncompliance with medication regimen due to financial hardship; Z79.899 Other long term (current) drug therapy
CPT/HCPCS: 80053; 81001; 84703; 85025; 96365; 96367; 96375; 96376; 99284; J7030; J2405

== ENCOUNTER 2024-02-27 19:17 | Observation (INO) | payer MEDICAID, SELFPAY ==
[2024-02-27 19:19] VITALS: BP 124/99; PULSE 104; RESP 9; TEMP 36.4; O2SAT 95; BMI 25.6
--- NOTE | 2024-02-27 20:10 | CT_ITS ---
EXAM: CT HEAD WITHOUT INTRAVENOUS CONTRAST CLINICAL INDICATION: Seizure TECHNIQUE: Multiple axial images were obtained of the head without intravenous contrast. This CT exam was performed using one or more of the following dose reduction techniques: automated exposure control, adjustment of the mA and/or kV according to patient size, and/or use of iterative reconstruction technique. COMPARISON: CT head, 09/14/2023 FINDINGS: BRAIN AND EXTRA-AXIAL SPACES: No significant abnormality. No intra- or extra-axial hemorrhage. No evidence of acute infarct. No intracranial mass or mass effect. There is preservation of the [place]/white matter interface. Ventricles are appropriate for age. Basal cisterns are patent. BONES/JOINTS: Healed right mandible fracture partially visualized. No discrete lytic or blastic abnormalities. SINUSES: No significant findings. MASTOID AIR CELLS: No significant effusion. ORBITS: No acute findings. CT/Brain/Head without Contrast IMPRESSION: Healed right mandible fracture partially visualized. Otherwise, no CT evidence of acute intracranial pathology. Electronically Signed: Guy Miller DO at 21:31 EST ,
--- NOTE | 2024-02-27 20:11 | EKG12_ITS ---
Test Reason : DYSRHYTHMIA Blood Pressure : */* mmHG Vent. Rate : 98 BPM Atrial Rate : 98 BPM P-R Int : 246 ms QRS Dur : 100 ms QT Int : 348 ms P-R-T Axes : 55 48 26 degrees QTcB Int : 444 ms Sinus rhythm with 1st degree A-V block Possible Left atrial enlargement Low voltage QRS Borderline ECG Confirmed by PHYLLIS COFFMAN, GURDEEP ([id number]), commercial production editor EILEEN HERNANDES ([id number]) on 02/29/2024 6:35:34 AM Referred By: Confirmed By: GURDEEP FERGUSON MD
[2024-02-27 20:18] VITALS: BP 117/77; PULSE 103; RESP 20; O2SAT 98
[2024-02-27] MEDS: 0.9% Normal Saline (1000mL) 1,000 ML 1000 ML IV (20:30)
--- NOTE | 2024-02-27 20:31 | EX.ED.DYSGE1 ---
HPI History of Present Illness Chief Complaint: Seizure Narrative Narrative: Chief complaint and HPI: Seizure-like activity. 44-year-old female with past medical history of seizures, drug abuse, anxiety, depression presents via EMS for evaluation of seizure-like activity. Per report, patient was at work when she had 2 episodes of seizure-like activity. Patient was reportedly lowered to the ground without fall. During EMS transport, EMS observed seizure-like activity lasting approximately 20 seconds. Patient had reported postictal phase. Patient is a poor historian. On my evaluation in the room, patient is alert. When asked why she is here she states I guess because I had a seizure. On chart review, patient is supposed to be on Depakote. She states that she has not taken this in a long time. When I asked her why and who her neurologist is she starts having seizure-like activity. However during this episode patient has good eye contact without loss of consciousness. She did not bite her tongue or have loss of bowel or bladder. Her movements appear purposeful with [id number]-qy-[id number] motions. Episode lasted several seconds. After that patient looked away from me and refused to answer any of my questions. Does not appear to be a true postictal phase. Review of systems: See HPI Medications: As listed on the chart Allergies: As listed on the chart PFSH: Per chart Vital signs: As listed on the chart. Reviewed. Physical exam: Gen: Alert, not able to obtain orientation Head: Normocephalic, atraumatic Eyes: No sclera icterus, conjunctiva clear, PERRL, EOMI ENT: Moist mucous membranes, old bruising to the face Neck: Trachea midline, No JVD, full range of motion CV: RRR, no murmurs, no peripheral edema Resp: Lungs CTA BL, no w/r/c GI: Abd soft, non-distended, non-tender, no r/r/g Musc: Moves all extremities, no deformity, Skin: Warm, dry, dirt on her hands and throughout her body Neuro: Grossly intact [facility] Medical History Multiple sclerosis IUD (intrauterine device) in place Seizures GERD (gastroesophageal reflux disease) Transverse myelitis Home Medications ?Medication ?Instructions ?Recorded ?Last Taken ?Type amitriptyline 100 mg tablet 300 mg PO QHS sleep 04/02/18 01/29/20 History melatonin 3 mg tablet 3 mg PO QHS PRN PRN Insomnia #30 02/05/20 02/26/24 22:00 Rx TABLETS 3 mg promethazine 25 mg tablet 25 mg PO Q6H PRN PRN Nausea #10 06/22/21 Unknown Rx TABLETS diphenoxylate-atropine 2.5 1 tab PO 4X/DAY PRN PRN diarrhea 5 06/25/22 Unknown Rx mg-0.025 mg tablet (Lomotil) days #20 tabs ferrous sulfate 325 mg (65 mg 325 mg PO BID 05/06/23 Unknown History iron) tablet (FeroSul) divalproex 250 mg tablet,delayed 500 mg (2 x 250 mg) PO BIDCM 14 10/17/23 02/26/24 22:00 Rx release days #56 TABLETS 500 mg gabapentin 800 mg tablet 800 mg PO TID 14 days #42 tabs 10/17/23 Unknown Rx ondansetron 8 mg disintegrating 8 mg PO Q8H PRN nausea and 10/17/23 Unknown Rx tablet vomiting #20 tabs potassium chloride 20 mEq 20 meq PO BID #14 tabs 10/17/23 Unknown Rx tablet,extended release Allergy/AdvReac Type Severity Reaction Status Date / Time naproxen (From Naprosyn) Allergy Hives Verified 10/14/23 10:33 Family History unable to obtain Surgical History Hx of elbow surgery Hx of tubal ligation Hx of appendectomy Social History Smoking Status: Never smoker substance use type: amphetamines EXAM Physical Exam Const Vital Signs: 02/27/24 19:19 02/27/24 20:18 02/27/24 21:55 Temperature 97.6 F L Temperature Source Oral Pulse Rate 104 H 103 H 101 H Respiratory Rate 9 L 20 H 19 H Blood Pressure 124/99 H 117/77 125/93 H Blood Pressure Mean 107 90 103 Pulse Ox 95 98 96 Oxygen Delivery Method Room Air Room Air Room Air 02/27/24 22:00 02/27/24 23:00 02/28/24 00:00 Temperature Temperature Source Pulse Rate 97 86 88 Respiratory Rate 18 15 17 Blood Pressure 115/77 114/76 95/54 L Blood Pressure Mean 89 88 67 Pulse Ox 100 100 98 Oxygen Delivery Method Room Air Room Air Room Air MDM MDM MDM Narrative Medical decision making narrative: 44-year-old female with past medical history of seizures, drug abuse, anxiety, depression presents via EMS for evaluation of seizure-like activity. Patient was originally alert and talking to me and then developed seizure-like activity. However during this episode patient had good eye contact without loss of consciousness. She did not bite her tongue or have loss of bowel or bladder. Her movements appeared purposeful with [id number]-[id number] motions. Episode lasted several seconds. This is more consistent with pseudoseizure than seizure. After that patient looked away from me and refused to answer any of my questions. Patient endorsed being off of her Depakote. On chart review, patient was seen in October for seizure-like activity. At that time she was discharged home on Depakote. Unknown if patient follows with a neurologist. Further on chart review, patient had an EEG in 2019 that was negative for seizure-like activity. Differential diagnosis includes but is not limited to pseudoseizure, seizures, electrolyte abnormality, intoxication, UTI, intracranial abnormality. Given that patient has been off of her Depakote will not get a Depakote level as it is suspected to be low. Given that her seizure-like activity appeared more pseudoseizure will not give antiepileptic at this time and instead will continue to monitor the patient. Laboratory workup ordered including CT head. EKG and chest x-ray reviewed see below. CBC without leukocytosis. Patient has baseline anemia. CMP without MICHELLE. Lactic acid unremarkable which she would expect to be elevated and true seizures especially if she had multiple ones. No transaminitis. Prolactin level is pending as this would also be elevated in a true seizure. CT of the head shows a healed right mandible fracture, partially visualized. No acute intracranial pathology. Patient's room needed to be switched given another patient's emergency. Patient has remained quiet this entire emergency stay and will not answer any questions however while moving her to another room patient became very agitated. We tried to verbally de-escalate her however she became very combative such as kicking and biting staff. Patient was given Ativan IV without improvement. She is still remained aggressive and combative therefore Haldol, Benadryl given. Unclear etiology for patient's change in behavior. Concern is for possible intoxication. Patient had to be placed in 4 point restraints. UA is an unclean sample. Urine negative. Urine drug screen negative. Ethanol level unremarkable. On reevaluation, patient is sleeping. With verbal and gentle stimulation she awakens. She is now talking to me. She denies any illicit drug use. She again states she knows she is here due to reported seizures. When I asked if she follows with a neurologist she originally says yes and then states no. She is unable to tell me their name. She is unable to tell me the last time she took Depakote or why she stopped taking it. At this point in time, patient will need further workup for seizure-like activity. She confirmed understanding the plan. Patient was discussed with the hospitalist service Dr. Azul. Given that we do not have inpatient neurology he recommends transfer to another facility. Patient was updated of this and confirmed understanding. We contacted the transfer line to [facility], [facility], [facility]. We were informed that the wait is multiple days for transfer. Given this, Dr. Azul was recontacted and patient was discussed. He agreed to admission. EKG: Interpreted by me/EM physician: EKG shows normal sinus rhythm without any acute ischemic changes. Heart rate 98. Diagnostic: Interpreted by me/EM physician: Chest x-ray not pneumonia, effusion, cardiomegaly, pneumothorax Impression: 1. Seizure-like activity, pseudoseizure versus seizure Lab Data Labs: Laboratory Results - last 24 hr 02/27/24 02/27/24 02/27/24 19:30 21:00 21:43 WBC 9.4 RBC 3.74 L Hgb 11.2 L Hct 35.5 L MCV 94.9 MCH 29.9 MCHC 31.5 L RDW Std Deviation 45.5 H RDW Coeff of Walt 13.2 Plt Count 370 MPV 9.1 Immature Gran % (Auto) 0.400 Neut % (Auto) 70.9 H Lymph % (Auto) 19.1 [place] % (Auto) 9.0 Eos % (Auto) 0.1 Baso % (Auto) 0.5 Absolute Neuts (auto) 6.7 Absolute Lymphs (auto) 1.80 Nucleated RBC % 0 Sodium 140 Potassium 3.8 Chloride 108 H Carbon Dioxide 25.0 Anion Gap 7 BUN 13 Creatinine 1.00 Estim Creat Clear Calc 62.90 Est GFR (MDRD) Af Amer 78 Est GFR (MDRD) Non-Af 64 BUN/Creatinine Ratio 13.0 Glucose 115 H Lactic Acid 1.8 Calcium 8.6 Total Bilirubin 0.10 L AST 20 ALT 28 Alkaline Phosphatase 99 Total Protein 7.0 Albumin 3.2 Globulin 3.8 Albumin/Globulin Ratio 0.8 L Urine Color Yellow Urine Clarity Cloudy Urine pH 5.0 Ur Specific [place] 1.025 Urine Protein 15 H Urine Glucose (UA) Normal Urine Ketones Negative Urine Occult Blood Negative Urine Nitrite Negative Urine Bilirubin Negative Urine Urobilinogen Normal Ur Leukocyte Esterase 25 H Urine RBC 0 SEEN Urine WBC 25-50 SEEN Ur Squamous Epith Cells > 100 SEEN Urine Bacteria 3+ Hyaline Casts 0-5 SEEN Urine Mucus 2+ Urine Test Negative Urine Opiates Screen NEGATIVE Urine Methadone Screen NEGATIVE Ur Barbiturates Screen NEGATIVE Ur Phencyclidine Scrn NEGATIVE Ur Amphetamines Screen NEGATIVE MDMA (Ecstasy) Screen NEGATIVE U Benzodiazepines Scrn NEGATIVE Urine Cocaine Screen NEGATIVE U Cannabinoids Screen NEGATIVE Ur Drug Screen Comment Ethyl Alcohol 4.0 Radiography Diagnostic Testing: Clinical Impression(s) from Imaging Studies Brain CT 02/27/24 20:10 IMPRESSION: Healed right mandible fracture partially visualized. Otherwise, no CT evidence of acute intracranial pathology. Electronically Signed: Guytroy Miller DO at 21:31 EST , Chest X-Ray 02/27/24 20:38 IMPRESSION: No radiographic evidence of acute cardiopulmonary disease. Electronically Signed: Guy Lashell Miller DO at 21:34 EST , Discharge Plan Disposition Disposition: Acute Care Hospital [facility] Discharge Date/Time: 02/28/24 00:36
--- NOTE | 2024-02-27 20:38 | RAD_ITS ---
EXAM: XR CHEST, 1 VIEW CLINICAL INDICATION: Seizure TECHNIQUE: Frontal view of the chest. COMPARISON: 09/12/2023 FINDINGS: LUNGS AND PLEURAL SPACES: No significant abnormality. No consolidation or edema. No pneumothorax. No effusion. HEART: No significant abnormality. Cardiac silhouette not enlarged. MEDIASTINUM: Central airways and mediastinal contour are unremarkable. BONES/JOINTS: No significant abnormality. No acute fracture. SOFT TISSUES: No significant abnormality. RAD/Chest 1 View (Portable) IMPRESSION: No radiographic evidence of acute cardiopulmonary disease. Electronically Signed: Guy Miller DO at 21:34 EST ,
[2024-02-27 21:06] LABS: Absolute Neutrophil Count 6.7 X10^3/uL (2.0-7.7); Basophil# 0.05 X10^3/uL; Basophil% 0.5 % (0-1); Eosinophil# 0.01 X10^3/uL; Eosinophils% 0.1 % (0-5); Hematocrit 35.5 % (37-47); Hemoglobin 11.2 g/dL (12.0-15.0); Lymphocyte % 19.1 % (19-41); Mean Corp Hgb Conc 31.5 g/dL (32-36); Mean Corpuscular Hgb 29.9 pg (27.0-32.0); Mean Corpuscular Volume 94.9 fL (81-99); Mean Platelet Vol. 9.1 fl (6.2-12.0); Monocyte# 0.85 X10^3/uL; NRBC Flagged by Analyzer 0 % (0-5); Neutrophil # 6.69 X10^3/uL (2.7-7.7); Neutrophil % 70.9 % (47-70); Platelet Count 370 K/mm3 (150-450); RBC Distribution Width CV 13.2 % (11.6-14.6); RBC Distribution Width SD 45.5 fl (35.1-43.9); Red Blood Count 3.74 M/mm3 (4.2-5.4); White Blood Count 9.4 K/mm3 (4.4-11.0)
--- NOTE | 2024-02-27 21:30 | ED.RN ---
Patient was found to be in her room, she had gotten herself dressed and was trying to rip her IV out. Security called to bedside. 2 RN's at bedside trying to assist her back into bed. She is not following commands or speaking. Patient now swinging, kicking and trying to bite staff. Dr Ellison called to bedside
[2024-02-27] MEDS: LORazepam 2 MG/ML Syringe IV (21:35)
[2024-02-27] MEDS: Haloperidol Lactate 5 MG/ML Vial 2 MG IV (21:45)
[2024-02-27] MEDS: DiphenhydrAMINE 50 MG/ML Syringe IV (21:45)
[2024-02-27 21:47] LABS: ALB/GLOB Ratio 0.8 RATIO (0.9-2.4); AST(SGOT) 20 U/L (15-37); Alanine Aminotransfer ALT/SGPT 28 U/L (13-56); Albumin, Serum 3.2 g/dL (3.2-5.0); Alkaline Phosphatase 99 U/L (45-117); Anion Gap 7 (5-15); BUN 13 mg/dL (7-18); Calcium,Total 8.6 mg/dL (8.5-10.1); Chloride 108 mmol/L (98-107); EST Glomerular Filtration Rate 64 mL/min (>60); Est Glom Filt Rate - Afr Amer 78 mL/min (>60); Globulin 3.8 g/dL (2.2-4.2); Glucose 115 mg/dL (74-106); Potassium 3.8 mmol/L (3.5-5.1); Sodium Level 140 mmol/L (136-145)
[2024-02-27 21:49] LABS: Lactic Acid 1.8 mmol/L (0.4-1.9)
[2024-02-27 21:54] LABS: Red Blood Cells-Urine 0 SEEN /hpf (0-5)
[2024-02-27 21:55] VITALS: BP 125/93; PULSE 101; RESP 19; O2SAT 96
[2024-02-27 21:58] LABS: Color, Urine Yellow (Yellow); Glucose, Dipstick Normal (Normal); Ketone-Dipstick Negative (Negative); Leukocyte Esterase-Dipstick 25 /ul (Negative); Nitrite-Dipstick Negative (Negative); Occult Blood-Urine Negative /ul (Negative); Protein-Dipstick 15 mg/dl (Negative); Specific Gravity, Urine 1.025 (1.002-1.030); Urine Bilirubin Dipstick Negative (Negative); Urine Clarity Cloudy (Clear); Urine Urobilinogen Normal (Normal)
[2024-02-27 22:00] VITALS: BP 115/77; PULSE 97; RESP 18; O2SAT 100
[2024-02-27 22:40] LABS: Amphetamine Urine VISTA NEGATIVE (<1000 ng/mL); Barbiturate Urine VISTA NEGATIVE (< 200 ng/mL); Benzodiazepine Urine VISTA NEGATIVE (< 200 ng/mL); Cocaine Urine VISTA NEGATIVE (< 300 ng/mL); Ecstacy Urine VISTA NEGATIVE (< 500 ng/mL); Methadone Urine VISTA NEGATIVE (< 300 ng/mL); PCP Urine VISTA NEGATIVE (< 25 ng/mL); THC Urine VISTA NEGATIVE (< 50 ng/mL); Vista UDS pH Range 5
[2024-02-27 23:00] VITALS: BP 114/76; PULSE 86; RESP 15; O2SAT 100
[2024-02-27 23:34] LABS: Squamous Epithelial Cells - UA > 100 SEEN /hpf (5-10)
[2024-02-27 23:35] LABS: Bacteria 3+ /hpf (None Seen); Hyaline Cast 0-5 SEEN /lpf (0-5); Mucous, Urine 2+ /hpf (<or=2+); White Blood Cells 25-50 SEEN /hpf (0-5)
[2024-02-27 23:36] LABS: Internal QC Validated? YES +Cl - CLEAR BKGD; Pregnancy, Urine Negative Negative
[2024-02-28] VITALS (7 sets, daily range): BP systolic 95–113; BP diastolic 54–92; PULSE 78–89; RESP 12–18; TEMP 36.6–37.2; O2SAT 97–100; BMI 24.3
--- NOTE | 2024-02-28 00:07 | HP.PCM.HOS_ITS ---
HPI - General General Date of Admission: 02/28/24 HPI Narrative YARED URENA, is a 44 F who presents to the hospital but was thought to be a seizure. Apparently she had 2 seizures at work and a seizure-like episode in the ambulance. On arrival to the ER she had another episode of shaking at the ED physician did not feel as a seizure and thought that it could be pseudoseizure so did not provide her with any medications. Per the ED physician, she was behaving a little strangely and then became violent when they had to transfer her from room 1 to room 6 where she attempted to hit and bite nurses. Because of that she was given a dose of Ativan, Benadryl, and Haldol all around 10 PM so at the time of my evaluation she was fairly sedated. She did receive IV fluids, but she would not awaken to my voice. Vital signs are stable. There is a seizure history in her chart though it is unclear the last time she took her Depakote, the prescription in our system is from October 2023. Urine tox screen was negative for any illicit drugs and lab work was unremarkable. CT of the brain was normal. [facility] Medical History Multiple sclerosis IUD (intrauterine device) in place Seizures GERD (gastroesophageal reflux disease) Transverse myelitis Home Medications ?Medication ?Instructions ?Recorded ?Last Taken ?Type amitriptyline 100 mg tablet 300 mg PO QHS sleep 04/02/18 01/29/20 History melatonin 3 mg tablet 3 mg PO QHS PRN PRN Insomnia #30 02/05/20 02/26/24 22:00 Rx TABLETS 3 mg promethazine 25 mg tablet 25 mg PO Q6H PRN PRN Nausea #10 06/22/21 Unknown Rx TABLETS diphenoxylate-atropine 2.5 1 tab PO 4X/DAY PRN PRN diarrhea 5 06/25/22 Unknown Rx mg-0.025 mg tablet (Lomotil) days #20 tabs ferrous sulfate 325 mg (65 mg 325 mg PO BID 05/06/23 Unknown History iron) tablet (FeroSul) divalproex 250 mg tablet,delayed 500 mg (2 x 250 mg) PO BIDCM 14 10/17/23 02/26/24 22:00 Rx release days #56 TABLETS 500 mg gabapentin 800 mg tablet 800 mg PO TID 14 days #42 tabs 10/17/23 Unknown Rx ondansetron 8 mg disintegrating 8 mg PO Q8H PRN nausea and 10/17/23 Unknown Rx tablet vomiting #20 tabs potassium chloride 20 mEq 20 meq PO BID #14 tabs 10/17/23 Unknown Rx tablet,extended release Allergy/AdvReac Type Severity Reaction Status Date / Time naproxen (From Naprosyn) Allergy Hives Verified 10/14/23 10:33 Family History unable to obtain unable to obtain Surgical History Hx of elbow surgery Hx of tubal ligation Hx of appendectomy Social History Smoking Status: Never smoker substance use type: amphetamines ROS Review of Systems ROS Unobtainable: due to encephalopathy Vital Signs Vital Signs Vital Signs: 02/27/24 19:19 02/27/24 20:18 02/27/24 21:55 Temperature 97.6 F L Temperature Source Oral Pulse Rate 104 H 103 H 101 H Respiratory Rate 9 L 20 H 19 H Blood Pressure 124/99 H 117/77 125/93 H Blood Pressure Mean 107 90 103 Pulse Ox 95 98 96 Oxygen Delivery Method Room Air Room Air Room Air 02/27/24 22:00 02/27/24 23:00 02/28/24 00:00 Temperature Temperature Source Pulse Rate 97 86 88 Respiratory Rate 18 15 17 Blood Pressure 115/77 114/76 95/54 L Blood Pressure Mean 89 88 67 Pulse Ox 100 100 98 Oxygen Delivery Method Room Air Room Air Room Air 02/28/24 00:02 Temperature 98.3 F Temperature Source Pulse Rate 89 Respiratory Rate 17 Blood Pressure 95/54 L Blood Pressure Mean 67 Pulse Ox 99 Oxygen Delivery Method Weight Weight: 140 lb 3.424 oz Body Mass Index (BMI) 25.6 Physical Exam Narrative General: Drowsy HEENT: Atraumatic, PERRLA, Normocephalic Oral: Moist Mucosa Neck: Supple, No JVD Lungs: Diminished, Normal air movement, No rhonchi, No wheeze, No rales Cardiovascular: Regular rate, Regular Rhythm, Normal S1, Normal S2, No murmurs Abdomen: Soft, Non Tender, Non-Distended, No Hepato-splenomegaly Extremities: No edema, Capillary Refill Less than 3 Seconds Skin: No rashes, No breakdown Musculoskeletal: No Tenderness to Palpation of Joints or Extremities Neurological: Does not participate in exam Psych/Mental Status: Does not participate in exam Results Lab / Micro Data 02/27/24 19:30 02/27/24 19:30 Labs: Laboratory Results - last 24 hr 02/27/24 19:30: WBC 9.4, RBC 3.74 L, Hgb 11.2 L, Hct 35.5 L, MCV 94.9, MCH 29.9, MCHC 31.5 L, RDW Std Deviation 45.5 H, RDW Coeff of Walt 13.2, Plt Count 370, MPV 9.1, Immature Gran % (Auto) 0.400, Neut % (Auto) 70.9 H, Lymph % (Auto) 19.1, [place] % (Auto) 9.0, Eos % (Auto) 0.1, Baso % (Auto) 0.5, Absolute Neuts (auto) 6.7, Absolute Lymphs (auto) 1.80, Nucleated RBC % 0, Sodium 140, Potassium 3.8, Chloride 108 H, Carbon Dioxide 25.0, Anion Gap 7, BUN 13, Creatinine 1.00, Estim Creat Clear Calc 62.90, Est GFR (MDRD) Af Amer 78, Est GFR (MDRD) Non-Af 64, BUN/Creatinine Ratio 13.0, Glucose 115 H, Calcium 8.6, Total Bilirubin 0.10 L, AST 20, ALT 28, Alkaline Phosphatase 99, Total Protein 7.0, Albumin 3.2, Globulin 3.8, Albumin/Globulin Ratio 0.8 L, Ethyl Alcohol 4.0 02/27/24 21:00: Lactic Acid 1.8 02/27/24 21:43: Urine Color Yellow, Urine Clarity Cloudy, Urine pH 5.0, Ur Specific [place] 1.025, Urine Protein 15 H, Urine Glucose (UA) Normal, Urine Ketones Negative, Urine Occult Blood Negative, Urine Nitrite Negative, Urine Bilirubin Negative, Urine Urobilinogen Normal, Ur Leukocyte Esterase 25 H, Urine RBC 0 SEEN, Urine WBC 25-50 SEEN, Ur Squamous Epith Cells > 100 SEEN, Urine Bacteria 3+, Hyaline Casts 0-5 SEEN, Urine Mucus 2+, Urine Test Negative, Urine Opiates Screen NEGATIVE, Urine Methadone Screen NEGATIVE, Ur Barbiturates Screen NEGATIVE, Ur Phencyclidine Scrn NEGATIVE, Ur Amphetamines Screen NEGATIVE, MDMA (Ecstasy) Screen NEGATIVE, U Benzodiazepines Scrn NEGATIVE, Urine Cocaine Screen NEGATIVE, U Cannabinoids Screen NEGATIVE, Ur Drug Screen Comment Imaging Radiology Impression Brain CT 02/27/24 20:10 IMPRESSION: Healed right mandible fracture partially visualized. Otherwise, no CT evidence of acute intracranial pathology. Electronically Signed: Guy Miller, DO at 21:31 EST , Chest X-Ray 02/27/24 20:38 IMPRESSION: No radiographic evidence of acute cardiopulmonary disease. Electronically Signed: Guy Miller, DO at 21:34 EST , Assessment & Plan Assessment/Plan (1) Seizure: PLAN: Plan 1. Seizure versus pseudoseizure ? Currently appears to be fairly sedated, she does not arouse to voice due to Haldol as well as Ativan and Benadryl dosing approximately an hour and a half prior to my evaluation ? She is on amitriptyline and gabapentin, her gabapentin prescription was filled on 01/30/2024 for 800 mg p.o. 3 times daily will decrease this to 600 mg p.o. 3 times daily ? Will obtain an EEG ? Will consult neurology ? I did attempt to have the patient transferred from the ER however for the local hospitals had a 3-day wait ? No electrolyte abnormalities ? Urine drug screen is negative ? Her OARRS shows multiple sedating medications ? Hopefully in the next few hours the medications given in the ER will wear off and can do a more thorough exam and evaluation DVT: Ambulation 75 minutes was spent on direct patient care, including documentation as well as chart review and collaboration with colleagues Charges/Coding Visit Charges Inpatient E&M: 09452 Init Hosp L3
[2024-02-28] MEDS: Amitriptyline 100 MG Tablet 300 MG PO ×2 (01:40→22:54)
[2024-02-28] MEDS: Gabapentin 600 MG Tablet PO ×4 (01:40→22:54)
[2024-02-28 06:57] LABS: Absolute Lymphocyte Count 3.05 X10^3/uL (0.83-4.51); Absolute Neutrophil Count 5.3 X10^3/uL (2.0-7.7); Basophil# 0.02 X10^3/uL; Basophil% 0.2 % (0-1); Eosinophil# 0.01 X10^3/uL; Eosinophils% 0.1 % (0-5); Hemoglobin 10.1 g/dL (12.0-15.0); Lymphocyte # 3.05 X10^3/ul (0.83-4.51); Lymphocyte % 31.9 % (19-41); Mean Corp Hgb Conc 33.7 g/dL (32-36); Mean Corpuscular Hgb 31.3 pg (27.0-32.0); Mean Corpuscular Volume 92.9 fL (81-99); Mean Platelet Vol. 8.9 fl (6.2-12.0); Monocyte# 1.14 X10^3/uL; Monocyte% 11.9 % (0-10); NRBC Flagged by Analyzer 0 % (0-5); Neutrophil # 5.29 X10^3/uL (2.7-7.7); Neutrophil % 55.4 % (47-70); Platelet Count 325 K/mm3 (150-450); RBC Distribution Width CV 13.1 % (11.6-14.6); RBC Distribution Width SD 44.5 fl (35.1-43.9); Red Blood Count 3.23 M/mm3 (4.2-5.4); White Blood Count 9.6 K/mm3 (4.4-11.0)
[2024-02-28 08:00] LABS: Anion Gap 2 (5-15); BUN 10 mg/dL (7-18); Calcium,Total 8.2 mg/dL (8.5-10.1); Chloride 111 mmol/L (98-107); Creatinine, Serum 0.67 mg/dL (0.55-1.02); EST Glomerular Filtration Rate 102 mL/min (>60); Est Glom Filt Rate - Afr Amer 124 mL/min (>60); Estimated Creatinine Clearance 89.04 ml/min; Glucose 94 mg/dL (74-106); Potassium 3.5 mmol/L (3.5-5.1); Sodium Level 141 mmol/L (136-145)
--- NOTE | 2024-02-28 12:51 | MRI_ITS ---
EXAM: MR HEAD WITHOUT AND WITH INTRAVENOUS CONTRAST CLINICAL INDICATION: seizures TECHNIQUE: Multiplanar and multisequence MR images of the brain were obtained without and with intravenous contrast. CONTRAST: IV 10ml clariscan COMPARISON: February 27, [address] showing old healed mandible condyle fracture, no acute intracranial abnormality FINDINGS: BRAIN AND EXTRA-AXIAL SPACES: No restricted diffusion. A few minimal deep white matter signal changes including 5 mm mildly high signal focus in the right centrum semiovale. No susceptibility artifacts. No hippocampal or mesial temporal asymmetry to suggest sclerosis on high-resolution coronal T2 images. No suspicious enhancement. No intra- or extra-axial hemorrhage. No evidence of acute infarct. No intracranial mass or mass effect. There is preservation of the [place]/white matter interface. Posterior fossa structures are unremarkable. Ventricles are appropriate for age. No hydrocephalus. Basal cisterns are patent. SELLA: Unremarkable. Normal sella turcica, pituitary gland, infundibular stalk, optic chiasm and hypothalamus. AUDITORY SYSTEM: Unremarkable. The internal auditory canals are patent. BONES/JOINTS: Unremarkable. No discrete lytic or blastic abnormalities. SINUSES: Unremarkable as visualized. Clear. MASTOID AIR CELLS: Unremarkable as visualized. Clear. ORBITS: Unremarkable as visualized. Both globes, extraocular muscles, optic nerves and retrobulbar fat appear unremarkable. VASCULATURE: Unremarkable as visualized. Normal flow voids in the major intracranial circulation. MRI/Brain W/WO Contrast IMPRESSION: No specific acute intracranial abnormality. No enhancing lesions. Minimal white matter changes. Electronically Signed: Cherelle Kellogg MD at 2:47 EST ,
--- NOTE | 2024-02-28 12:53 | PCM.PROGNOTE ---
Subjective Subjective Patient seen and examined. She had no active complaints. She was admitted after she had a seizure at work. She does have a history of seizure disorder and says she takes Depakote. She is she has had about 3 seizures this year with the last one being about a month ago. She denies numbness or tingling or any other symptoms. Review of systems otherwise negative. She has remained hemodynamically stable. Objective Data Objective Data Vital Signs: Vital Signs Temp Pulse Resp BP Pulse Ox O2 Del Method 98.5 F 87 12 99/60 97 Room Air 02/28/24 10:00 02/28/24 10:00 02/28/24 10:00 02/28/24 10:00 02/28/24 10:00 02/28/24 10:00 Oxygen Delivery Method Room Air Weight: 132 lb 0.91 oz Body Mass Index (BMI) 24.3 Intake & Output: Intake and Output for Last 24 Hours 02/26/24 02/27/24 02/28/24 23:59 23:59 23:59 Intake Total 1000 / 1000 650 / 650 Balance 1000 / 1000 650 / 650 Lab / Micro Data 02/28/24 06:37 02/28/24 06:37 Labs: Laboratory Results - last 24 hr 02/27/24 19:30: WBC 9.4, RBC 3.74 L, Hgb 11.2 L, Hct 35.5 L, MCV 94.9, MCH 29.9, MCHC 31.5 L, RDW Std Deviation 45.5 H, RDW Coeff of Walt 13.2, Plt Count 370, MPV 9.1, Immature Gran % (Auto) 0.400, Neut % (Auto) 70.9 H, Lymph % (Auto) 19.1, [place] % (Auto) 9.0, Eos % (Auto) 0.1, Baso % (Auto) 0.5, Absolute Neuts (auto) 6.7, Absolute Lymphs (auto) 1.80, Nucleated RBC % 0, Sodium 140, Potassium 3.8, Chloride 108 H, Carbon Dioxide 25.0, Anion Gap 7, BUN 13, Creatinine 1.00, Estim Creat Clear Calc 62.90, Est GFR (MDRD) Af Amer 78, Est GFR (MDRD) Non-Af 64, BUN/Creatinine Ratio 13.0, Glucose 115 H, Calcium 8.6, Total Bilirubin 0.10 L, AST 20, ALT 28, Alkaline Phosphatase 99, Total Protein 7.0, Albumin 3.2, Globulin 3.8, Albumin/Globulin Ratio 0.8 L, Ethyl Alcohol 4.0 02/27/24 21:00: Lactic Acid 1.8 02/27/24 21:43: Urine Color Yellow, Urine Clarity Cloudy, Urine pH 5.0, Ur Specific [place] 1.025, Urine Protein 15 H, Urine Glucose (UA) Normal, Urine Ketones Negative, Urine Occult Blood Negative, Urine Nitrite Negative, Urine Bilirubin Negative, Urine Urobilinogen Normal, Ur Leukocyte Esterase 25 H, Urine RBC 0 SEEN, Urine WBC 25-50 SEEN, Ur Squamous Epith Cells > 100 SEEN, Urine Bacteria 3+, Hyaline Casts 0-5 SEEN, Urine Mucus 2+, Urine Test Negative, Urine Opiates Screen NEGATIVE, Urine Methadone Screen NEGATIVE, Ur Barbiturates Screen NEGATIVE, Ur Phencyclidine Scrn NEGATIVE, Ur Amphetamines Screen NEGATIVE, MDMA (Ecstasy) Screen NEGATIVE, U Benzodiazepines Scrn NEGATIVE, Urine Cocaine Screen NEGATIVE, U Cannabinoids Screen NEGATIVE, Ur Drug Screen Comment 02/28/24 06:37: WBC 9.6, RBC 3.23 L, Hgb 10.1 L, Hct 30.0 L, MCV 92.9, MCH 31.3, MCHC 33.7 D, RDW Std Deviation 44.5 H, RDW Coeff of Walt 13.1, Plt Count 325, MPV 8.9, Immature Gran % (Auto) 0.500, Neut % (Auto) 55.4, Lymph % (Auto) 31.9, [place] % (Auto) 11.9 H, Eos % (Auto) 0.1, Baso % (Auto) 0.2, Absolute Neuts (auto) 5.3, Absolute Lymphs (auto) 3.05, Nucleated RBC % 0, Sodium 141, Potassium 3.5, Chloride 111 H, Carbon Dioxide 28.0, Anion Gap 2 L, BUN 10, Creatinine 0.67, Estim Creat Clear Calc 89.04, Est GFR (MDRD) Af Amer 124, Est GFR (MDRD) Non-Af 102, BUN/Creatinine Ratio 15.0, Glucose 94, Calcium 8.2 L Radiography Diagnostic Testing: Radiology Impression Brain CT 02/27/24 20:10 IMPRESSION: Healed right mandible fracture partially visualized. Otherwise, no CT evidence of acute intracranial pathology. Electronically Signed: Guy Miller DO at 21:31 EST , Chest X-Ray 02/27/24 20:38 IMPRESSION: No radiographic evidence of acute cardiopulmonary disease. Electronically Signed: uGy Miller DO at 21:34 EST , Physical Exam Const alert and oriented x3 Constitutional Narrative: frail, flat affect. Looks older than stated age. General Appearance: cooperative HEENT normocephalic, head/scalp atraumatic and moist oral mucous membranes Eyes PERRL and EOMs intact bilaterally Neck no lymphadenopathy and supple Lymph Lymphatic: no lymphadenopathy noted Resp normal respiratory effort, normal air movement and clear to auscultation bilaterally Cardio regular rate, regular rhythm, S1 normal heart sound, S2 normal heart sound and no murmurs GI normal to inspection, nondistended, normoactive bowel sounds, soft to palpation, non-tender and non-distended Extremity normal capillary refill, no clubbing, cyanosis or edema and no calf tenderness General Extremity: no tenderness to palpation of joints or extremities Skin General Skin Exam: no breakdown and turgor normal Neuro CN's II-XII intact bilaterally, no focal motor deficits and no sensory deficits noted Motor Exam: strength 5/5 throughout and general weakness Psych thought process normal and cooperative Appearance: appropriate Assessment & Plan Assessment/Plan (1) Seizure: PLAN: Plan #Seizure in the setting of seizure disorder admitted after she had a generalised seizure at work. There is also question of if it is a pseudoseizure takes depakote for seizures. Says she has had 3 seizures this year, the last one being about a month ago urine tox was negaitve CT of the brain showed no acute intracranial pathology MRI of hte brain with and without contrast ordered, as well as EEG neurology consulted seizure precautions. On amitriptyline and gabapentin. Gabapentin dose was lowered from 800 mg 3 times daily to 600 mg 3 times daily on admission. All sedative meds on hold. Urine tox was negative. Await neurology evaluation. #History of nicotine dependence: Has a history of methamphetamine abuse. Currently stable. DVT prophylaxis: Lovenox Charges/Coding Visit Charges Inpatient E&M: 88118 Subs Hosp L2
[2024-02-28] MEDS: FLU VACC 2024-25(6MOS UP)/PF 45 MCG/0.5 ML SYRINGE IM (13:17)
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
--- NOTE | 2024-02-28 14:18 | NURSING ---
DR BAINS W/TELENEANTELMO CALLED AND ASSESSED PT, SHE WILL SPEAK W/DR DELGADO ABOUT HER RECOMMENDATIONS. PT IS NOW LEAVING UNIT FOR BRAIN MRI
[2024-02-28 18:25] LABS: Valproic Acid (Depakene) Level < 3 ug/mL (50-100)
[2024-02-29 04:07] LABS: PROLACTIN 53.5 ng/mL (4.8-33.4)
[2024-02-29 05:20] VITALS: BP 103/83; PULSE 79; RESP 14; TEMP 36.7; O2SAT 100
[2024-02-29] MEDS: Gabapentin 600 MG Tablet PO ×2 (05:24→15:02)
[2024-02-29 07:49] LABS: Absolute Lymphocyte Count 2.43 X10^3/uL (0.83-4.51); Absolute Neutrophil Count 3.1 X10^3/uL (2.0-7.7); Basophil# 0.05 X10^3/uL; Basophil% 0.8 % (0-1); Eosinophil# 0.12 X10^3/uL; Eosinophils% 1.8 % (0-5); Hematocrit 35.3 % (37-47); Hemoglobin 11.3 g/dL (12.0-15.0); Lymphocyte # 2.43 X10^3/ul (0.83-4.51); Lymphocyte % 37.4 % (19-41); Mean Corpuscular Hgb 30.5 pg (27.0-32.0); Mean Corpuscular Volume 95.4 fL (81-99); Mean Platelet Vol. 8.8 fl (6.2-12.0); Monocyte# 0.76 X10^3/uL; Monocyte% 11.7 % (0-10); NRBC Flagged by Analyzer 0 % (0-5); Neutrophil % 47.7 % (47-70); Platelet Count 313 K/mm3 (150-450); RBC Distribution Width CV 13.4 % (11.6-14.6); RBC Distribution Width SD 46.9 fl (35.1-43.9); White Blood Count 6.5 K/mm3 (4.4-11.0)
[2024-02-29 08:00] VITALS: BP 122/79; PULSE 79; RESP 14; TEMP 36.6; O2SAT 99
[2024-02-29] MEDS: Divalproex Sodium 250 MG Tablet 500 MG PO (08:01)
[2024-02-29 08:03] LABS: Anion Gap 3 (5-15); BUN 12 mg/dL (7-18); BUN/Creat Ratio 16.4 RATIO (10-20); Calcium,Total 8.8 mg/dL (8.5-10.1); Chloride 111 mmol/L (98-107); Creatinine, Serum 0.73 mg/dL (0.55-1.02); EST Glomerular Filtration Rate 92 mL/min (>60); Est Glom Filt Rate - Afr Amer 111 mL/min (>60); Estimated Creatinine Clearance 81.72 ml/min; Glucose 85 mg/dL (74-106); Potassium 4.4 mmol/L (3.5-5.1); Sodium Level 140 mmol/L (136-145)
[2024-02-29 14:00] VITALS: BP 98/64; PULSE 88; RESP 14; TEMP 36.9; O2SAT 98
--- NOTE | 2024-02-29 14:32 | DCINST_ITS ---
Discharge Instructions Diet Discharge Diet: Low fat / Low cholesterol DC O2, CPAP, BIPAP needs Additional Home O2 Discharge instructions: No Dressing / Incision Discharge Activity: Return to Normal Activity Weight Bearing Status: Weight bearing as tolerated Dressing / Incision Call your doctor if you observe: Fever of 101 or Higher, Shortness of breath, Dizziness, Swelling in the ankles, Chest pain and - (breakthrough seizures) Follow Up Care Test Results: Test results from this visit will be discussed in further detail at your follow- up appointment, if applicable. Discharge Plan Admission Admit Date/Time: 02/28/24 00:02 Primary Reason for Your Visit: seizure disorder Attending Provider: Eleanor West Primary Care Provider: Giancarlo Espinosa Consulting Providers: Britt Fonseca; Aylin Machuca; Ro Zamora; Clifford Diana; David Al; Adelita Sadler; JUNIOR BAIRES; Lorena Brady; Winsoem Jefferson; Wade Lambert; Mildred Abreu; Roddy Azul; Kin Mckeon; Waleska Corley; Angelica Coffye; Eyad Callaway; Audelia Noe; Demetrio Hector; Rip Rolon; Evens Mcgovern; Kirit Larios; Janie Quintero; Farhad Saldaña; Annette Winston; Edd Lofton; Kelsy Babcock; Sarah Sarah Instructions Patient Instructions: ED Seizure, Recurrent (Adult) Additional Instructions / Restrictions: patient to abstain from driving or using heavy machinery until cleared by ne urology or her PCP Discharge Orders/Prescriptions Prescriptions: New divalproex 250 mg Tablet,Delayed Release (Dr/Ec) 500 mg PO BIDCM Qty: 60 2RF Continued amitriptyline 100 MG tablet 300 mg PO QHS melatonin 3 MG tablet 3 mg PO QHS PRN PRN (Reason: Insomnia) Qty: 30 0RF promethazine 25 MG tablet 25 mg PO Q6H PRN PRN (Reason: Nausea) Qty: 10 0RF diphenoxylate-atropine [Lomotil] 2.5-0.025 mg tablet 1 tab PO 4X/DAY PRN PRN (Reason: diarrhea) 5 Days Qty: 20 0RF ferrous sulfate [FeroSul] 325 mg (65 mg iron) tablet 325 mg PO BID Patient Comments: Take 1 tablet by mouth twice daily. potassium chloride 20 mEq tablet extended release 20 meq PO BID Qty: 14 0RF ondansetron 8 mg tablet,disintegrating 8 mg PO Q8H PRN (Reason: nausea and vomiting) Qty: 20 0RF gabapentin 800 mg tablet 800 mg PO TID 14 Days Qty: 42 0RF Discontinued divalproex 250 MG tablet 500 mg PO BIDCM 14 Days Qty: 56 0RF Referrals / Follow Up: Giancarlo Espinosa MD [Primary Care Provider] - Within 1 Week Adan Wheeler MD [Non-Staff -Ordering Privileges] - Within 2 Weeks (see to establish care for seizure) Disposition Disposition (needs filled in before D/C Order can be placed): Home, Self Care
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
--- NOTE | 2024-02-29 15:02 | CASEMGMT ---
AIDEE PRINCE into pt room, pt nurse present. Pt states she is typically I at home and denies any homegoing needs. Pt nurse trying to find pt phone. Pt does not know if she has her phone with her. Pt states she does not know the phone numbers of anyone to transport her home. Asked if she knew names of anyone and this AIDEE PRINCE could try to find the phone number. Pt states she does not know the last names. Pt aware AIDEE PRINCE could schedule through her insurance. AIDEE PRINCE then noted pt has a significant other listed and went back into pt room and offered to give sig other phone number. Pt states she wants to use her insurance. TC to pt insurance to set up trip for home. Pt address and phone did not match their records. AIDEE PRINCE into pt room, pt gave 2 different addresses on [facility] that the outside sales account representative stated did not exist. Rep stated they have transported pt to [address] [place] [address] in the past. Asked pt if this was the correct address, pt stated yes. Trip# is [id number]. Box Feeder to call when on way. Instructed to call the [place] floor. Once off phone, pt nurse in room reviewing dc instructions. Asked pt if she has a home to return to. Pt stated yes and rolled her eyes. Updated SW on this and nurse once out of room went back in to confirm for pt safety that she did indeed have a place to dc to. [phone]- Received phone call that [employer] will arrive in 10 minutes to roller picker pt. Pt to be taken to main entrance.
== END 2024-02-29 15:45 | disposition home or self-care (01) ==
LOC: ED 19:48 → MS3 02-28 00:11
PROVIDERS: Admitting Provider Family Medicine; Emergency Provider Surgery; PCP Family Medicine; Visit Provider Student in an Organized Health Care Education/Training Program
DX: G40.409 Other generalized epilepsy and epileptic syndromes, not intractable, without status epilepticus (principal); G35 Multiple sclerosis; R20.0 Anesthesia of skin; G93.40 Encephalopathy, unspecified; Z23 Encounter for immunization; K21.9 Gastro-esophageal reflux disease without esophagitis; Z79.899 Other long term (current) drug therapy; Z87.891 Personal history of nicotine dependence
CPT/HCPCS: 80048; 85025; 36415; 70450; 70553; 71045; 80053; 80164; 80307; 81001; 81025; 82077; 83605; 84146; 90656; 93005; 95819; 96374; 96375; 99221; 99285; A9575; P9612; A4216; G0378

== ENCOUNTER 2024-03-02 22:06 | Emergency (ER) | payer MEDICAID, SELFPAY ==
[2024-03-02 22:06] VITALS: BP 116/78; PULSE 94; RESP 16; TEMP 36.4; O2SAT 99; BMI 26.2
--- NOTE | 2024-03-02 23:05 | EX.ED.DYSGE1 ---
HPI History of Present Illness Chief Complaint: Seizure Narrative Narrative: Brought in by EMS witnessed seizure while at work. History of seizures. Patient on Depakote. Currently back to baseline just feeling tired. She states she is taking her medications. She was just discharged 2 days ago for recurrent seizures. No adjustments to medications. She states she was off her medications at that time. No cough no recent vomiting diarrhea. No urinary symptoms. History of tubal ligation. Prior similar symptoms: Yes PFSH PFSH Medical History Multiple sclerosis IUD (intrauterine device) in place Seizures GERD (gastroesophageal reflux disease) Transverse myelitis Home Medications ?Medication ?Instructions ?Recorded ?Last Taken ?Type amitriptyline 100 mg tablet 300 mg PO QHS sleep 04/02/18 01/29/20 History melatonin 3 mg tablet 3 mg PO QHS PRN PRN Insomnia #30 02/05/20 02/26/24 22:00 Rx TABLETS 3 mg ferrous sulfate 325 mg (65 mg 325 mg PO BID 05/06/23 Unknown History iron) tablet (FeroSul) gabapentin 800 mg tablet 800 mg PO TID 14 days #42 tabs 10/17/23 Unknown Rx ondansetron 8 mg disintegrating 8 mg PO Q8H PRN nausea and 10/17/23 Unknown Rx tablet vomiting #20 tabs potassium chloride 20 mEq 20 meq PO BID #14 tabs 10/17/23 Unknown Rx tablet,extended release divalproex 250 mg tablet,delayed 500 mg (2 x 250 mg) PO BIDCM #60 02/29/24 Unknown Rx release tabs Allergy/AdvReac Type Severity Reaction Status Date / Time naproxen (From Naprosyn) Allergy Hives Verified 03/03/24 02:43 Surgical History Hx of elbow surgery Hx of tubal ligation Hx of appendectomy Social History Smoking Status: Never smoker substance use type: amphetamines ROS ROS ED Constitutional Constitutional ED: Denies chills, fever(s) or sweats ENT ENT ED: Denies sore throat Cardiovascular Cardiovascular: Denies chest pain, leg edema, palpitations or racing heartbeat Respiratory/Chest Respiratory/Chest: Denies cough, dyspnea or dyspnea on exertion Gastrointestinal Gastrointestinal: Denies abdominal pain, diarrhea, nausea or vomiting Genitourinary Genitourinary ED: Denies dysuria, hematuria or urinary frequency Musculoskeletal Musculoskeletal: Denies back pain, extremity pain or neck pain Integumentary Denies rash or wounds Neurologic Neurologic: Reports other Details: Seizure ; Denies headache(s), paresthesias or weakness EXAM Physical Exam Const Vital Signs: 03/02/24 22:06 03/03/24 00:06 03/03/24 00:32 Temperature 97.5 F L 98.1 F Temperature Source Oral Pulse Rate 94 93 94 Respiratory Rate 16 18 22 H Blood Pressure 116/78 116/76 118/66 Blood Pressure Mean 90 89 83 Pulse Ox 99 96 98 Oxygen Delivery Method Room Air Positive well nourished and well developed General Appearance ED: well developed and NAD HEENT Reports moist mucous membranes HEENT Narrative: No tongue biting normocephalic and atraumatic Eyes General Eye ED: Yes normal appearance of both eyes Neck full ROM Chest Wall Chest: Negative for tenderness Resp normal respiratory effort and normal air movement Effort and Inspection: symmetric chest movement; Negative for respiratory distress Cardio regular rate, regular rhythm and no murmurs Peripheral Pulses: pulses 2+ throughout GI normal to inspection, nondistended, normoactive bowel sounds and non-tender Palpation: Negative for guarding or rebound tenderness present Extremity normal to inspection General Extremety ED: Negative for edema or tenderness General Extremity: Negative for edema Neuro oriented x3, CN's II-XII intact bilaterally and no sensory deficits noted Sensorium / Orientation: awake and alert Skin no rashes or lesions noted and no wounds MDM MDM MDM Narrative Medical decision making narrative: Interventions / MDM: Differential diagnosis: Breakthrough seizure, medication noncompliance Diagnosis considered but do not suspect: N/A My EKG interpretation: N/A Imaging independently reviewed and interpreted by myself: N/A External documents reviewed: Hospitalization discharged 2 days ago EEG with no seizure activities. She had noncompliance with her medications. Test considered but not ordered:N/A ED course: Patient currently back to baseline ANO other 3. No tongue biting. History of seizures. Laboratory Humphrey's check Depakote level urine. 0030: Multiple reevaluations stable no seizure activities. Labs are stable urine negative for infection. Her Depakote level however was less than 3. I we discussed with the patient she states she is not taking her medicines as she should. Discussed importance of taking her medicine to prevent breakthrough seizures. 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 She has a neurologist. She will call for follow-up. No recurrent seizures therefore no indication requiring hospitalization. Encouraged her to continue her home medications. All questions were answered. Re-evaluation: stable Disposition discussed with patient/family/significant other: Patient Case discussed with consulting clinician: N/A This note was generated with [employer] dictation software. It may contain incorrect words, spelling, and punctuation that were not noted in checking the note before signing. Lab Data Labs: Laboratory Results - last 24 hr 03/02/24 03/02/24 03/02/24 22:50 23:30 23:50 WBC 9.9 RBC 3.80 L Hgb 11.6 L Hct 35.7 L MCV 93.9 MCH 30.5 MCHC 32.5 RDW Std Deviation 45.8 H RDW Coeff of Walt 13.5 Plt Count 337 MPV 9.4 Immature Gran % (Auto) 0.900 Neut % (Auto) 73.6 H Lymph % (Auto) 17.7 L [place] % (Auto) 7.0 Eos % (Auto) 0.3 Baso % (Auto) 0.5 Absolute Neuts (auto) 7.3 Absolute Lymphs (auto) 1.76 Nucleated RBC % 0 Sodium 137 Potassium 3.8 Chloride 104 Carbon Dioxide 27.0 Anion Gap 6 BUN 16 Creatinine 0.78 Estim Creat Clear Calc 78.35 Est GFR (MDRD) Af Amer 104 Est GFR (MDRD) Non-Af 86 BUN/Creatinine Ratio 20.6 H Glucose 111 H Calcium 9.4 Serum , Qual NEGATIVE Urine Color Yellow Urine Clarity Clear Urine pH 6.0 Ur Specific [place] 1.030 Urine Protein 15 H Urine Glucose (UA) Normal Urine Ketones Negative Urine Occult Blood 10 H Urine Nitrite Negative Urine Bilirubin Negative Urine Urobilinogen Normal Ur Leukocyte Esterase Negative Urine RBC 5-10 SEEN Urine WBC 5-10 SEEN Ur Squamous Epith Cells 10-25 SEEN Urine Bacteria 1+ Urine Mucus 1+ Valproic Acid < 3 L Discharge Plan Triage Chief Complaint: Seizure ED Provider: David Germain Dx/Rx/DC Orders Clinical Impression: Breakthrough seizure, History of seizure, Noncompliance with medication regimen Instructions: Self-Care for Seizures, ED Seizure, Recurrent (Adult) Prescriptions: No Action amitriptyline 100 MG tablet 300 mg PO QHS melatonin 3 MG tablet 3 mg PO QHS PRN PRN (Reason: Insomnia) Qty: 30 0RF ferrous sulfate [FeroSul] 325 mg (65 mg iron) tablet 325 mg PO BID Patient Comments: Take 1 tablet by mouth twice daily. potassium chloride 20 mEq tablet extended release 20 meq PO BID Qty: 14 0RF ondansetron 8 mg tablet,disintegrating 8 mg PO Q8H PRN (Reason: nausea and vomiting) Qty: 20 0RF gabapentin 800 mg tablet 800 mg PO TID 14 Days Qty: 42 0RF divalproex 250 mg Tablet,Delayed Release (Dr/Ec) 500 mg PO BIDCM Qty: 60 2RF Primary Care Provider: Giancarlo Espinosa Referrals: Giancarlo Espinosa MD [Primary Care Provider] - Activity Restrictions/Additional Instructions: You need to take your seizure medicines as prescribed. Follow-up with your neurologist. Print Language: Citizen [place] Disposition Disposition: Home, Self Care Discharge Date/Time: 03/03/24 01:04
[2024-03-02 23:14] LABS: Absolute Lymphocyte Count 1.76 X10^3/uL (0.83-4.51); Absolute Neutrophil Count 7.3 X10^3/uL (2.0-7.7); Basophil# 0.05 X10^3/uL; Basophil% 0.5 % (0-1); Eosinophil# 0.03 X10^3/uL; Eosinophils% 0.3 % (0-5); Hematocrit 35.7 % (37-47); Hemoglobin 11.6 g/dL (12.0-15.0); Lymphocyte # 1.76 X10^3/ul (0.83-4.51); Lymphocyte % 17.7 % (19-41); Mean Corp Hgb Conc 32.5 g/dL (32-36); Mean Corpuscular Hgb 30.5 pg (27.0-32.0); Mean Corpuscular Volume 93.9 fL (81-99); Mean Platelet Vol. 9.4 fl (6.2-12.0); NRBC Flagged by Analyzer 0 % (0-5); Neutrophil % 73.6 % (47-70); Platelet Count 337 K/mm3 (150-450); RBC Distribution Width CV 13.5 % (11.6-14.6); RBC Distribution Width SD 45.8 fl (35.1-43.9); White Blood Count 9.9 K/mm3 (4.4-11.0)
[2024-03-02 23:26] LABS: Anion Gap 6 (5-15); BUN 16 mg/dL (7-18); BUN/Creat Ratio 20.6 RATIO (10-20); Calcium,Total 9.4 mg/dL (8.5-10.1); Chloride 104 mmol/L (98-107); Creatinine, Serum 0.78 mg/dL (0.55-1.02); EST Glomerular Filtration Rate 86 mL/min (>60); Est Glom Filt Rate - Afr Amer 104 mL/min (>60); Estimated Creatinine Clearance 78.35 ml/min; Glucose 111 mg/dL (74-106); Potassium 3.8 mmol/L (3.5-5.1); Sodium Level 137 mmol/L (136-145)
[2024-03-02 23:51] LABS: Internal QC Validated? YES +Cl - CLEAR BKGD; Pregnancy, Serum, hCG Quali. NEGATIVE Negative
[2024-03-03 00:02] LABS: Color, Urine Yellow (Yellow); Glucose, Dipstick Normal (Normal); Ketone-Dipstick Negative (Negative); Leukocyte Esterase-Dipstick Negative /ul (Negative); Nitrite-Dipstick Negative (Negative); Occult Blood-Urine 10 /ul (Negative); Protein-Dipstick 15 mg/dl (Negative); Urine Bilirubin Dipstick Negative (Negative); Urine Clarity Clear (Clear); Urine Urobilinogen Normal (Normal)
[2024-03-03 00:06] VITALS: BP 116/76; PULSE 93; RESP 18; O2SAT 96
[2024-03-03 00:12] LABS: Valproic Acid (Depakene) Level < 3 ug/mL (50-100)
[2024-03-03 00:22] LABS: Bacteria 1+ /hpf (None Seen); Mucous, Urine 1+ /hpf (<or=2+); Red Blood Cells-Urine 5-10 SEEN /hpf (0-5); Squamous Epithelial Cells - UA 10-25 SEEN /hpf (5-10); White Blood Cells 5-10 SEEN /hpf (0-5)
[2024-03-03 00:32] VITALS: BP 118/66; PULSE 94; RESP 22; TEMP 36.7; O2SAT 98
== END 2024-03-03 01:04 | disposition home or self-care (01) ==
PROVIDERS: Emergency Provider Emergency Medicine; PCP Family Medicine; Visit Provider Emergency Medicine
DX: G40.909 Epilepsy, unspecified, not intractable, without status epilepticus (principal); G35 Multiple sclerosis; K21.9 Gastro-esophageal reflux disease without esophagitis; Z79.899 Other long term (current) drug therapy; Z91.148 Patient's other noncompliance with medication regimen for other reason
CPT/HCPCS: 80048; 80164; 81001; 84703; 85025; 99285; A4216

== ENCOUNTER 2024-03-03 02:42 | Emergency (ER) | payer MEDICAID, SELFPAY ==
[2024-03-03 02:42] VITALS: BP 122/79; PULSE 94; RESP 16; TEMP 34.7; O2SAT 97; BMI 26.5
--- NOTE | 2024-03-03 02:53 | ED.VIS.FALL ---
HPI HPI - Fall History of Present Illness Chief Complaint: Fall Informant: patient Narrative Narrative: Patient presents, through the ED by walk-in and for fall head injury. No was just seen by myself few hours ago for a breakthrough seizure with medical noncompliance. She states her neighbor was coming to pick her up. She reported to nursing that she was home when she fell and then changed her story. She does not recall. She is not on any blood thinners. Currently temperature is cold outside she is shivering her temp is 94.5. Records notes tetanus April 2023. PFSH PFSH Medical History Multiple sclerosis IUD (intrauterine device) in place Seizures GERD (gastroesophageal reflux disease) Transverse myelitis Home Medications ?Medication ?Instructions ?Recorded ?Last Taken ?Type amitriptyline 100 mg tablet 300 mg PO QHS sleep 04/02/18 01/29/20 History melatonin 3 mg tablet 3 mg PO QHS PRN PRN Insomnia #30 02/05/20 02/26/24 22:00 Rx TABLETS 3 mg ferrous sulfate 325 mg (65 mg 325 mg PO BID 05/06/23 Unknown History iron) tablet (FeroSul) gabapentin 800 mg tablet 800 mg PO TID 14 days #42 tabs 10/17/23 Unknown Rx ondansetron 8 mg disintegrating 8 mg PO Q8H PRN nausea and 10/17/23 Unknown Rx tablet vomiting #20 tabs potassium chloride 20 mEq 20 meq PO BID #14 tabs 10/17/23 Unknown Rx tablet,extended release divalproex 250 mg tablet,delayed 500 mg (2 x 250 mg) PO BIDCM #60 02/29/24 Unknown Rx release tabs Allergy/AdvReac Type Severity Reaction Status Date / Time naproxen (From Naprosyn) Allergy Hives Verified 03/03/24 02:43 Surgical History Hx of elbow surgery Hx of tubal ligation Hx of appendectomy Social History Smoking Status: Never smoker substance use type: amphetamines ROS ROS ED Constitutional Constitutional ED: Denies chills, fever(s) or sweats ENT ENT ED: Denies sore throat Cardiovascular Cardiovascular: Denies chest pain, leg edema, palpitations or racing heartbeat Respiratory/Chest Respiratory/Chest: Denies cough, dyspnea or dyspnea on exertion Gastrointestinal Gastrointestinal: Denies abdominal pain, diarrhea, nausea or vomiting Genitourinary Genitourinary ED: Denies dysuria, hematuria or urinary frequency Musculoskeletal Musculoskeletal: Denies back pain, extremity pain or neck pain Integumentary Reports wounds; Denies rash Neurologic Neurologic: Denies headache(s), paresthesias or weakness EXAM Physical Exam Const Vital Signs: 03/03/24 02:42 03/03/24 06:51 Temperature 94.5 F L Temperature Source Oral Pulse Rate 94 90 Respiratory Rate 16 17 Blood Pressure 122/79 H 111/79 Blood Pressure Mean 93 89 Pulse Ox 97 99 Oxygen Delivery Method Room Air Positive well nourished and well developed Constitutional Narrative: Shivering General Appearance ED: well developed HEENT Reports moist mucous membranes HEENT Narrative: Abrasion to the chin left maxillary, there was left upper incisor loosening of the tooth, there is laceration left upper lip with no vermilion involvement. No trismus. There is a lateral abrasion of the tongue. No laceration of the tongue. Wires noted to the left lower jaw region. normocephalic Eyes General Eye ED: Yes normal appearance of both eyes Neck full ROM Chest Wall Chest: Negative for tenderness Resp normal respiratory effort and normal air movement Effort and Inspection: symmetric chest movement; Negative for respiratory distress Cardio regular rate, regular rhythm and no murmurs Peripheral Pulses: pulses 2+ throughout GI normal to inspection, nondistended, normoactive bowel sounds and non-tender Palpation: Negative for guarding or rebound tenderness present Extremity normal to inspection General Extremety ED: Negative for edema or tenderness General Extremity: Negative for edema Neuro oriented x3 and no sensory deficits noted Sensorium / Orientation: awake and alert Skin no rashes or lesions noted and no wounds MDM MDM MDM Narrative Medical decision making narrative: Interventions / MDM: Differential diagnosis: Breakthrough seizure, lip laceration, dental injury Diagnosis considered but do not suspect: Intracranial hemorrhage, facial fractures, however CT negative. My EKG interpretation: N/A Imaging independently reviewed and interpreted by myself: CT brain: No acute process. CT facial bones: No acute process. CT cervical spine: No acute process. External documents reviewed: N/A Test considered but not ordered:N/A ED course: Patient shivering hypothermic with discharge. With her tongue abrasion, concern likely had another breakthrough seizure. She had subtherapeutic Depakote. IV established to load her with Depakote. Will obtain trauma scans head face and neck. Will plan on laceration repair of the lip. 0400: Procedure note laceration repair. Verbal consent from patient. Normal sterile conditions. 1.5 cc 1% lidocaine without epinephrine used for local analgesia left upper lip. CT scans negative. Patient monitored. 0700: Patient remained stable in the ED no recurrent seizures. She will continue her Depakote twice a day she will follow-up with her neurologist and her dentist due to breakthrough seizure and dental loosening. Previous wiring of the left mandibular region was noted. She report this was a year ago done in [place] as she had a seizure fall up there a year ago. Re-evaluation: stable Disposition discussed with patient/family/significant other: Patient Case discussed with consulting clinician: N/A This note was generated with [employer] dictation software. It may contain incorrect words, spelling, and punctuation that were not noted in checking the note before signing. Radiography Diagnostic Testing: Clinical Impression(s) from Imaging Studies Brain CT 03/03/24 03:30 IMPRESSION: No acute findings in the head/brain. Electronically Signed: Luis Eduardo Prescott MD at 4:05 EST , Cervical Spine CT 03/03/24 03:30 IMPRESSION: No evidence of acute cervical spinal fracture or spondylolisthesis. AIDOC was utilized to assist in identifying pertinent positive findings. Electronically Signed: Luis Eduardo Prescott MD at 4:29 EST , Facial/Sinus 03/03/24 03:30 IMPRESSION: 1. Status post ORIF of a left mandible fracture with demonstration of incomplete healing. No hardware complications. 2. Evidence of a comminuted fracture of the right mandible neck with associated dislocation at the right temporomandibular joint. Electronically Signed: Luis Eduardo Prescott MD at 4:35 EST , Discharge Plan Triage Chief Complaint: Fall ED Provider: David Germain Dx/Rx/DC Orders Clinical Impression: Breakthrough seizure, Closed head injury, Laceration of lip, Dental injury Instructions: ED Head Injury (Adult), ED Laceration, Lip or Mouth, ED Seizure, Recurrent (Adult) Prescriptions: No Action amitriptyline 100 MG tablet 300 mg PO QHS melatonin 3 MG tablet 3 mg PO QHS PRN PRN (Reason: Insomnia) Qty: 30 0RF ferrous sulfate [FeroSul] 325 mg (65 mg iron) tablet 325 mg PO BID Patient Comments: Take 1 tablet by mouth twice daily. potassium chloride 20 mEq tablet extended release 20 meq PO BID Qty: 14 0RF ondansetron 8 mg tablet,disintegrating 8 mg PO Q8H PRN (Reason: nausea and vomiting) Qty: 20 0RF gabapentin 800 mg tablet 800 mg PO TID 14 Days Qty: 42 0RF divalproex 250 mg Tablet,Delayed Release (Dr/Ec) 500 mg PO BIDCM Qty: 60 2RF Primary Care Provider: Giancarlo Espinosa Referrals: Giancarlo Espinosa MD [Primary Care Provider] - Activity Restrictions/Additional Instructions: Your scan head face and neck are negative. You are given loading dose of your Depakote 1 g in the ED. Continue take your Depakote 500 mg twice daily as prescribed by your doctors. You have a loose upper incisor due to your injury. Follow-up with your dentist. 3 absorbable sutures placed for your lip laceration. Print Language: Andorran Disposition Disposition: Home, Self Care
[2024-03-03] MEDS: Lidocaine 1% (20 ml mdv) 20 ML Vial INFILT (03:06)
[2024-03-03] MEDS: Valproate Sodium 1,000 MG in Dextrose 5%-Water (50mL Bag) 50 ML 50 MG IV (03:10)
--- NOTE | 2024-03-03 03:30 | CT_ITS ---
EXAM: CT HEAD WITHOUT INTRAVENOUS CONTRAST CLINICAL INDICATION: head injury TECHNIQUE: Multiple axial images were obtained of the head without intravenous contrast. CTDIvol = ( 44.99 ) mGy, DLP = ( 779.24 ) mGycm This CT exam was performed using one or more of the following dose reduction techniques: automated exposure control, adjustment of the mA and/or kV according to patient size, and/or use of iterative reconstruction technique. COMPARISON: No relevant prior studies available. FINDINGS: BRAIN AND EXTRA-AXIAL SPACES: Unremarkable. No intra- or extra-axial hemorrhage. No evidence of acute infarct. No intracranial mass or mass effect. There is preservation of the [place]/white matter interface. Posterior fossa structures are unremarkable. Ventricles are appropriate for age. No hydrocephalus. Basal cisterns are patent. BONES/JOINTS: Unremarkable. No discrete lytic or blastic abnormalities. SINUSES: Unremarkable as visualized. Clear. MASTOID AIR CELLS: Unremarkable. Clear. ORBITS: Visualized globes, extraocular muscles, optic nerves and retrobulbar fat appear unremarkable. CT/Brain/Head without Contrast IMPRESSION: No acute findings in the head/brain. Electronically Signed: Luis Eduardo Prescott MD at 4:05 EST ,
--- NOTE | 2024-03-03 03:30 | CT_ITS ---
EXAM: CT MAXILLOFACIAL WITHOUT INTRAVENOUS CONTRAST CLINICAL INDICATION: injury TECHNIQUE: Helically acquired images were obtained of the face without intravenous contrast. CTDIvol = ( 29.38 ) mGy, DLP = ( 620.92 ) mGycm This CT exam was performed using one or more of the following dose reduction techniques: automated exposure control, adjustment of the mA and/or kV according to patient size, and/or use of iterative reconstruction technique. COMPARISON: No relevant prior studies available. FINDINGS: BONES/JOINTS: Status post ORIF of a left mandible fracture with demonstration of incomplete healing. No hardware complications. Evidence of a comminuted fracture of the right mandible neck with associated dislocation at the right temporomandibular joint. No discrete lytic or blastic abnormalities. SOFT TISSUES: Unremarkable. No focal subcutaneous swelling. No discrete fluid collections. No suspicious radiopaque foreign bodies. ORBITS: Unremarkable. Both globes are unremarkable. Extraocular muscles are normal. Retrobulbar fat appears unremarkable. SINUSES: Small cysts in the right maxillary fluid sinus. Minimal scattered paranasal sinus mucosal thickening with no air-fluid levels involving the paranasal sinuses. MASTOID AIR CELLS: Visualized mastoid air cells and middle ears are clear. DENTAL: No acute findings. No periodontal osseous erosion. CT/Sinus/Facial Bone IMPRESSION: 1. Status post ORIF of a left mandible fracture with demonstration of incomplete healing. No hardware complications. 2. Evidence of a comminuted fracture of the right mandible neck with associated dislocation at the right temporomandibular joint. Electronically Signed: Luis Eduardo Prescott MD at 4:35 EST ,
--- NOTE | 2024-03-03 03:30 | CT_ITS ---
EXAM: CT CERVICAL SPINE WITHOUT INTRAVENOUS CONTRAST CLINICAL INDICATION: injury TECHNIQUE: Helically acquired images were obtained of the cervical spine without intravenous contrast. 2D reformatted images were reviewed. CTDIvol = ( 18.39 ) mGy, DLP = ( 336.43 ) mGycm This CT exam was performed using one or more of the following dose reduction techniques: automated exposure control, adjustment of the mA and/or kV according to patient size, and/or use of iterative reconstruction technique. COMPARISON: No relevant prior studies available. FINDINGS: VERTEBRAE: Unremarkable. No fracture. No traumatic subluxation. No discrete lytic or blastic abnormality. Normal alignment. Normal craniocervical junction and cervicothoracic junction. DISCS/SPINAL CANAL/NEURAL FORAMINA: Unremarkable. Disc heights are preserved. No critical stenosis. SOFT TISSUES: Unremarkable. No prevertebral soft tissue swelling. LYMPH NODES: Unremarkable. No cervical adenopathy. LUNG APICES: Unremarkable as visualized. Clear. CT/Spine Cervical without Contras IMPRESSION: No evidence of acute cervical spinal fracture or spondylolisthesis. AIDOC was utilized to assist in identifying pertinent positive findings. Electronically Signed: Luis Eduardo Prescott MD at 4:29 EST ,
--- NOTE | 2024-03-03 06:40 | ED.RN ---
attempted to call listed contact, no answer
[2024-03-03 06:51] VITALS: BP 111/79; PULSE 90; RESP 17; O2SAT 99
[2024-03-03 07:09] VITALS: BP 111/79; PULSE 90; RESP 17; TEMP 34.7; O2SAT 99
== END 2024-03-03 07:09 | disposition home or self-care (01) ==
PROVIDERS: Emergency Provider Emergency Medicine; PCP Family Medicine; Visit Provider Emergency Medicine
DX: S01.511A Laceration without foreign body of lip, initial encounter (principal); G35 Multiple sclerosis; G40.909 Epilepsy, unspecified, not intractable, without status epilepticus; S00.81XA Abrasion of other part of head, initial encounter; S00.512A Abrasion of oral cavity, initial encounter; K08.89 Other specified disorders of teeth and supporting structures; W19.XXXA Unspecified fall, initial encounter; Y92.009 Unspecified place in unspecified non-institutional (private) residence as the place of occurrence of the external cause; K21.9 Gastro-esophageal reflux disease without esophagitis; Z96.89 Presence of other specified functional implants; Z91.148 Patient's other noncompliance with medication regimen for other reason; Z79.899 Other long term (current) drug therapy
CPT/HCPCS: 12011; 70450; 70486; 72125; 96365; 99283

== ENCOUNTER 2024-03-03 12:06 | Inpatient (IN) | payer MEDICAID, SELFPAY ==
[2024-03-03] VITALS (8 sets, daily range): BP systolic 90–117; BP diastolic 57–83; PULSE 74–105; RESP 16–18; TEMP 36.1–36.9; O2SAT 94–100; BMI 25.3; BMI 24.0
--- NOTE | 2024-03-03 12:29 | EKG12_ITS ---
Test Reason : SEIZURE Blood Pressure : */* mmHG Vent. Rate : 82 BPM Atrial Rate : 82 BPM P-R Int : 238 ms QRS Dur : 96 ms QT Int : 362 ms P-R-T Axes : 48 44 41 degrees QTcB Int : 422 ms Sinus rhythm with 1st degree A-V block Otherwise normal ECG Confirmed by PHYLLIS COFFMAN, GURDEEP ([id number]), scientific editor EILEEN HERNANDES ([id number]) on 03/05/2024 7:05:33 AM Referred By: Confirmed By: GURDEEP FERGUSON MD
--- NOTE | 2024-03-03 12:29 | CT_ITS ---
STUDY: CT BRAIN WITHOUT CONTRAST REASON FOR EXAM: Female, 44 years old. Fall RADIATION DOSAGE (If Supplied By Facility): CTDIvol = ( 44.99 ) mGy, DLP = ( 779.24 ) mGycm TECHNIQUE: Transaxial CT imaging of the brain was performed without administration of intravenous contrast material. Individualized dose optimization techniques were used for this CT. COMPARISON: No relevant priors. FINDINGS: Normal soft tissue structures. Normal calvarium. There is a fracture of the right mandibular condyle Normal size ventricles and extra-axial spaces for the patient''s age. Normal white matter tracts of the cerebral hemispheres. Normal basal ganglia and thalami. Normal brainstem. Normal cerebellum. There is no intracranial hemorrhage. There are no findings of an acute ischemic infarction. There is mild mucosal thickening of the visualized paranasal sinuses. CT/Brain/Head without Contrast IMPRESSION: Normal unenhanced CT scan of the brain. Mandibular fracture. Electronically Signed: Jovanni Carter MD at 15:55 EST ,
--- NOTE | 2024-03-03 12:29 | CT_ITS ---
STUDY: CT FACIAL BONES WITHOUT CONTRAST REASON FOR EXAM: Female, 44 years old. Facial injury RADIATION DOSAGE (If Supplied By Facility): CTDIvol = ( 29.38 ) mGy, DLP = ( 547.46 ) mGycm TECHNIQUE: The patient was scanned in a multi detector CT scanner. Sagittal and coronal images were reconstructed. Individualized dose optimization techniques were used for this CT. COMPARISON: Earlier the same day. FINDINGS: Normal soft tissue structures. Normal orbital freire and orbital contents. Normal nasal bones and anterior nasal spine. Normal zygomatic arches. There is stable fracture of the left mandible status post RIF with fixation plate and screws of the left body of the mandible extending across the midline. There is stable nonunited of fracture of the right mandibular condyle with subluxation/dislocation at the temporomandibular joint. There are dental cavities. There is mild mucosal thickening of the visualized paranasal sinuses. CT/Sinus/Facial Bone IMPRESSION: Stable fractures of the mandible status post ORIF. Electronically Signed: Jovanni Carter MD at 15:59 EST ,
--- NOTE | 2024-03-03 12:29 | CT_ITS ---
STUDY: CT CERVICAL SPINE WITHOUT CONTRAST REASON FOR EXAM: Female, 44 years old. Fall RADIATION DOSAGE (If Supplied By Facility): CTDIvol = ( 16.65 ) mGy, DLP = ( 312.85 ) mGycm TECHNIQUE: High resolution transaxial imaging was performed without contrast material. Sagittal and coronal images were reconstructed. Individualized dose optimization techniques were used for this CT. COMPARISON: Earlier the same day FINDINGS: Normal craniovertebral junction. Normal anterior atlantoaxial articulation. Normal odontoid process. Normal cervical lordosis. Normal vertebral bodies and posterior osseous elements. There is no acute fracture. C2-3: Mild spurring. Facet spurring on the right Normal central canal and intervertebral neuroforamina. C3-4: Normal endplates. Normal disc height and morphology. Normal central canal and intervertebral neuroforamina. C4-5: Normal endplates. Normal disc height and morphology. Normal central canal and intervertebral neuroforamina. C5-6: Normal endplates. Normal disc height and morphology. Mild facet spurring. Normal central canal and intervertebral neuroforamina. C6-7: Normal endplates. Normal disc height and morphology. Normal central canal and intervertebral neuroforamina. C7-T1: Normal endplates. Normal disc height and morphology. Normal central canal and intervertebral neuroforamina. Normal visualized soft tissue structures. CT/Spine Cervical without Contras IMPRESSION: No acute fracture. Mild degenerative change. Electronically Signed: Jovanni Carter MD at 16:01 EST ,
--- NOTE | 2024-03-03 12:36 | EDS_ITS ---
<Statement entered by Donte Pearl DO - 03/03/24 16:51> Patient was seen and examined with nurse chalino Mullins All components of the history and physical confirmed and agreed. History of present illness and physical exam: Patient is a 44-year-old female with past medical history of substance abuse, seizures treated Depakote, history of medication noncompliance secondary to lack of insurance at, GERD, MS who presents to the emergency department with a chief complaint of seizure and falling down a set of stairs. She states that this is her third visit in the last 24 hours. She states that for the past several months she has not had any insurance therefore she has been off her Depakote. States that she was seen yesterday twice for seizures falling down striking her face and hitting her head. Patient was discharged around 7 AM this morning and after given IV Depakote as well as prescription. She states that she does not have a neurologist currently she states that she went home and had a fall down 3-4 steps. Patient is complaining of right hand pain. Review of systems: Agree with above Physical exam: General: Patient lying in bed rest comfortably did not appear to be in acute distress Head: Atraumatic, normocephalic patient does have some ecchymosis noted on the chin on the left side Eyes, ears, nose, throat: PERRL body, EOMI by, no conjunctival injection noted, no nasal septal hematomas noted bilaterally Neck: Soft, supple, trachea midline, no tenderness palpation midline of the cervical spine Cardiovascular: Regular in rhythm no murmurs gallops rubs noted Respiratory: Clear to auscultation bilaterally no rales rhonchi or wheezes noted Abdomen: Soft, nondistended, no tenderness palpation, bowel sounds present x 4 Musculoskeletal: Patient does have ecchymosis and swelling noted to the right hand on the volar aspect and the dorsal aspect noted. No tenderness to palpation midline of the thoracolumbar spine. Extremities: Radial pulses +2/4 in the bilateral per extremities, +5/5 strength noted in the left upper extremity and +4/5 strength noted in the right upper extremity secondary to pain, +5/5 strength noted in the bilateral lower extremities Neurological: Patient following commands knew that she was at [facility] years 2023. Skin: Warm, dry, see musculoskeletal MDM Patient is a 44-year-old female who presented to the emergency department chief complaint of seizure and falling down a set of stairs with right hand pain. Patient will have a workup performed here on the differential diagnose includes Melamin to breakthrough seizure, medication noncompliance, right hand fracture. Once workup is obtained reviewed she will be reevaluated. Patient CBC reviewed showed no evidence leukocytosis white blood count normal 11, hemoglobin is 11.7, platelet count normal at 363. Patient sodium normal 138, potassium normal 3.5, creatinine normal at 0.69. Patient troponin normal at 4. Patient's urinalysis was reviewed and showed negative leukocyte esterase negative nitrates, 0-5 white cells with 2+ bacteria she does not have any urinary symptoms this will be sent for culture. Patient drug screen was negative and her valproic acid level was 52. . Patient's CT head and brain without contrast showed no acute intracranial findings there was a mandibular fracture noted. CT cervical spine showed no acute fracture mild degenerative change and her CT of her facial bones showed stable fractures of the mandible status post open reduction internal fixation. Patient's x-ray of her hand showed fracture of the fourth proximal phalanx. Patient's EKG reviewed and independently interpreted by myself showed sinus rhythm with a rate of 82 bpm with evidence of first-degree heart block. Patient will be given Depakote load here in the emergency department. Patient's case was discussed with on-call orthopedic surgeon Dr. Tidwell who is recommending an ulnar gutter splint. He states that he will follow-up in the outpatient setting this was applied by nurse practitioner Harpreet see his note above. At this point time given this is her third visit I do believe she will warrant admission to the hospital. Patient's case was discussed with hospitalist who accept patient for admission. Patient is agreeable with this plan all question concerns answered bedside. Final impression: Fourth phalanx fracture Seizure Fall Disposition: Patient will be admitted to the hospital further evaluation and management Supervising attending attestation: Donte DOBBS History of Present Illness Chief Complaint: Seizure Narrative Narrative: Patient is a 44-year-old female with history of drug abuse, seizures over the last 4 years treated with Depakote, history of being medication noncompliant, and having breakthrough seizures. This is the patient's third visit in the last 24 hours. Patient has been medication noncompliant with her Depakote for the last 5 months secondary to insurance issues. Patient was seen yesterday 2 times for seizures, falling down striking her face and hitting her head. Patient did have scans of her head neck and face, patient does have a mandible fracture that she is currently been aware about that has not been healing properly. Patient did have a laceration. Patient was discharged roughly 7 AM this morning given IV Depakote as well as prescription. She currently does not have a neurologist. Patient had another seizure, falling down 3-4 steps. Patient again has facial pain as well as right hand pain. [facility] Medical History Multiple sclerosis IUD (intrauterine device) in place Seizures GERD (gastroesophageal reflux disease) Transverse myelitis Home Medications ?Medication ?Instructions ?Recorded ?Last Taken ?Type amitriptyline 100 mg tablet 300 mg PO QHS sleep 04/02/18 01/29/20 History gabapentin 800 mg tablet 800 mg PO TID 14 days #42 tabs 10/17/23 Unknown Rx ondansetron 8 mg disintegrating 8 mg PO Q8H PRN nausea and 10/17/23 Unknown Rx tablet vomiting #20 tabs potassium chloride 20 mEq 20 meq PO BID #14 tabs 10/17/23 Unknown Rx tablet,extended release divalproex 250 mg tablet,delayed 250 mg PO BIDCM 03/03/24 03/03/24 History release melatonin 3 mg tablet 3 mg PO QHS PRN Insomnia 03/03/24 03/02/24 History Allergy/AdvReac Type Severity Reaction Status Date / Time naproxen (From Naprosyn) Allergy Hives Verified 03/03/24 12:22 Surgical History Hx of elbow surgery Hx of tubal ligation Hx of appendectomy Social History Smoking Status: Never smoker substance use type: amphetamines ROS ROS ED ROS Narrative Constitutional: Negative for fever, chills, weight loss. Positive for weakness Eyes: Negative for vision loss, vision change, double vision ENT: Negative for any sore throat, ear pain, congestion. Positive for mouth pain, chin Cardiovascular: Negative for any chest pain, tightness, palpitations Respiratory: Negative for any cough, sputum production, hemoptysis, dyspnea, dyspnea on exertion, orthopnea Gastrointestinal: Negative for any abdominal pain, nausea, vomiting, diarrhea, constipation, blood in stool, blood in vomit : Negative for any urinary frequency, dysuria, retention, blood in urine Muscle skeletal: Negative for any neck pain, back pain. Positive for right hand pain Neurological: Negative for any headache, syncope, dizziness. Positive breakthrough seizure Skin: Negative for any rashes, itching, abrasions, lacerations. Positive for ecchymosis, abrasion Psychiatric: Negative for any depression, anxiety, stress, suicidal ideation, homicidal ideation Hematologic: Negative for any excessive bruising, easy bleeding EXAM Physical Exam Narrative Exam Narrative: Vital signs reviewed. HEET: Head normocephalic atraumatic, TMs clear bilaterally. Posterior pharynx is clear, moist mucous membranes. Nares clear bilaterally. Pupils are equal round reactive to light. Patient does have bruising, ecchymosis to the left mandible, left cheek. She is unsure if this is new or from the previous fall. Patient does have a known loose tooth from the previous fall. Negative for any hemotympanum, septal hematoma. Neck: Supple with no lymphadenopathy or tenderness. No signs of meningismus. Cardiac: Regular rate and rhythm no murmurs gallops or rubs, equal peripheral pulses bilaterally. Respiratory: Lungs clear to auscultation bilaterally. No chest tenderness. Abdomen: Soft, nontender, nondistended. No abdominal bruit or pulsatile masses. No hepatosplenomegaly Extremities: Obvious ecchymosis, edema to the palm and posterior right hand. Worse with any movement. Decreased range of motion to the right hand. Neuro: Cranial nerves II through XII intact, no focal neurological deficits. Skin: Clean dry and intact with no rash, purpura, petechiae, vesicles or pustules. Backs/flank: No CVA tenderness, no midline spinal tenderness, no deformity. Psych: Normal mood and affect. No SI, HI or acute psychosis. Const Vital Signs: 03/03/24 12:07 03/03/24 14:07 03/03/24 16:00 Temperature 96.9 F L Temperature Source Temporal Pulse Rate 105 H 85 83 Respiratory Rate 16 16 16 Blood Pressure 90/57 L 105/74 110/78 Blood Pressure Mean 68 84 88 Pulse Ox 98 96 97 Oxygen Delivery Method Room Air Room Air Positive well nourished and well developed General Appearance ED: well developed MDM MDM Lab Data Labs: Laboratory Results - last 24 hr 03/03/24 03/03/24 13:06 14:20 WBC 11.0 RBC 3.85 L Hgb 11.7 L Hct 35.7 L MCV 92.7 MCH 30.4 MCHC 32.8 RDW Std Deviation 45.1 H RDW Coeff of Walt 13.5 Plt Count 363 MPV 9.3 Immature Gran % (Auto) 0.500 Neut % (Auto) 67.1 Lymph % (Auto) 22.1 [place] % (Auto) 9.9 Eos % (Auto) 0.1 Baso % (Auto) 0.3 Absolute Neuts (auto) 7.4 Absolute Lymphs (auto) 2.43 Nucleated RBC % 0 Sodium 138 Potassium 3.5 Chloride 105 Carbon Dioxide 29.0 Anion Gap 5 BUN 10 Creatinine 0.69 Estim Creat Clear Calc 87.04 Est GFR (MDRD) Af Amer 119 Est GFR (MDRD) Non-Af 99 BUN/Creatinine Ratio 14.6
--- NOTE | 2024-03-03 12:36 | EX.ED.DYSGE1 ---
HPI History of Present Illness Chief Complaint: Seizure Narrative Narrative: Patient is a 44-year-old female with history of drug abuse, seizures over the last 4 years treated with Depakote, history of being medication noncompliant, and having breakthrough seizures. This is the patient's third visit in the last 24 hours. Patient has been medication noncompliant with her Depakote for the last 5 months secondary to insurance issues. Patient was seen yesterday 2 times for seizures, falling down striking her face and hitting her head. Patient did have scans of her head neck and face, patient does have a mandible fracture that she is currently been aware about that has not been healing properly. Patient did have a laceration. Patient was discharged roughly 7 AM this morning given IV Depakote as well as prescription. She currently does not have a neurologist. Patient had another seizure, falling down 3-4 steps. Patient again has facial pain as well as right hand pain. [facility] Medical History Multiple sclerosis IUD (intrauterine device) in place Seizures GERD (gastroesophageal reflux disease) Transverse myelitis Home Medications ?Medication ?Instructions ?Recorded ?Last Taken ?Type amitriptyline 100 mg tablet 300 mg PO QHS sleep 04/02/18 01/29/20 History gabapentin 800 mg tablet 800 mg PO TID 14 days #42 tabs 10/17/23 Unknown Rx ondansetron 8 mg disintegrating 8 mg PO Q8H PRN nausea and 10/17/23 Unknown Rx tablet vomiting #20 tabs potassium chloride 20 mEq 20 meq PO BID #14 tabs 10/17/23 Unknown Rx tablet,extended release divalproex 250 mg tablet,delayed 250 mg PO BIDCM 03/03/24 03/03/24 History release melatonin 3 mg tablet 3 mg PO QHS PRN Insomnia 03/03/24 03/02/24 History Allergy/AdvReac Type Severity Reaction Status Date / Time naproxen (From Naprosyn) Allergy Hives Verified 03/03/24 12:22 Surgical History Hx of elbow surgery Hx of tubal ligation Hx of appendectomy Social History Smoking Status: Never smoker substance use type: amphetamines ROS ROS ED ROS Narrative Constitutional: Negative for fever, chills, weight loss. Positive for weakness Eyes: Negative for vision loss, vision change, double vision ENT: Negative for any sore throat, ear pain, congestion. Positive for mouth pain, chin Cardiovascular: Negative for any chest pain, tightness, palpitations Respiratory: Negative for any cough, sputum production, hemoptysis, dyspnea, dyspnea on exertion, orthopnea Gastrointestinal: Negative for any abdominal pain, nausea, vomiting, diarrhea, constipation, blood in stool, blood in vomit : Negative for any urinary frequency, dysuria, retention, blood in urine Muscle skeletal: Negative for any neck pain, back pain. Positive for right hand pain Neurological: Negative for any headache, syncope, dizziness. Positive breakthrough seizure Skin: Negative for any rashes, itching, abrasions, lacerations. Positive for ecchymosis, abrasion Psychiatric: Negative for any depression, anxiety, stress, suicidal ideation, homicidal ideation Hematologic: Negative for any excessive bruising, easy bleeding EXAM Physical Exam Narrative Exam Narrative: Vital signs reviewed. HEET: Head normocephalic atraumatic, TMs clear bilaterally. Posterior pharynx is clear, moist mucous membranes. Nares clear bilaterally. Pupils are equal round reactive to light. Patient does have bruising, ecchymosis to the left mandible, left cheek. She is unsure if this is new or from the previous fall. Patient does have a known loose tooth from the previous fall. Negative for any hemotympanum, septal hematoma. Neck: Supple with no lymphadenopathy or tenderness. No signs of meningismus. Cardiac: Regular rate and rhythm no murmurs gallops or rubs, equal peripheral pulses bilaterally. Respiratory: Lungs clear to auscultation bilaterally. No chest tenderness. Abdomen: Soft, nontender, nondistended. No abdominal bruit or pulsatile masses. No hepatosplenomegaly Extremities: Obvious ecchymosis, edema to the palm and posterior right hand. Worse with any movement. Decreased range of motion to the right hand. Neuro: Cranial nerves II through XII intact, no focal neurological deficits. Skin: Clean dry and intact with no rash, purpura, petechiae, vesicles or pustules. Backs/flank: No CVA tenderness, no midline spinal tenderness, no deformity. Psych: Normal mood and affect. No SI, HI or acute psychosis. Const Vital Signs: 03/03/24 12:07 03/03/24 14:07 03/03/24 16:00 Temperature 96.9 F L Temperature Source Temporal Pulse Rate 105 H 85 83 Respiratory Rate 16 16 16 Blood Pressure 90/57 L 105/74 110/78 Blood Pressure Mean 68 84 88 Pulse Ox 98 96 97 Oxygen Delivery Method Room Air Room Air Positive well nourished and well developed General Appearance ED: well developed MDM MDM Lab Data Labs: Laboratory Results - last 24 hr 03/03/24 03/03/24 13:06 14:20 WBC 11.0 RBC 3.85 L Hgb 11.7 L Hct 35.7 L MCV 92.7 MCH 30.4 MCHC 32.8 RDW Std Deviation 45.1 H RDW Coeff of Walt 13.5 Plt Count 363 MPV 9.3 Immature Gran % (Auto) 0.500 Neut % (Auto) 67.1 Lymph % (Auto) 22.1 [place] % (Auto) 9.9 Eos % (Auto) 0.1 Baso % (Auto) 0.3 Absolute Neuts (auto) 7.4 Absolute Lymphs (auto) 2.43 Nucleated RBC % 0 Sodium 138 Potassium 3.5 Chloride 105 Carbon Dioxide 29.0 Anion Gap 5 BUN 10 Creatinine 0.69 Estim Creat Clear Calc 87.04 Est GFR (MDRD) Af Amer 119 Est GFR (MDRD) Non-Af 99 BUN/Creatinine Ratio 14.6 Glucose 86 Calcium 9.4 Troponin I High Sens 4 Urine Color Yellow Urine Clarity Clear Urine pH 7.0 Ur Specific [place] 1.005 Urine Protein Negative Urine Glucose (UA) Normal Urine Ketones Negative Urine Occult Blood Negative Urine Nitrite Negative Urine Bilirubin Negative Urine Urobilinogen Normal Ur Leukocyte Esterase Negative Urine RBC 0 SEEN Urine WBC 0-5 SEEN Ur Squamous Epith Cells 5-10 SEEN Urine Bacteria 2+ Urine Mucus 0 SEEN Urine Test Negative Urine Opiates Screen NEGATIVE Urine Methadone Screen NEGATIVE Ur Barbiturates Screen NEGATIVE Valproic Acid 52 Ur Phencyclidine Scrn NEGATIVE Ur Amphetamines Screen NEGATIVE MDMA (Ecstasy) Screen NEGATIVE U Benzodiazepines Scrn NEGATIVE Urine Cocaine Screen NEGATIVE U Cannabinoids Screen NEGATIVE Ur Drug Screen Comment Radiography Diagnostic Testing: Clinical Impression(s) from Imaging Studies Brain CT 03/03/24 12:29 IMPRESSION: Normal unenhanced CT scan of the brain. Mandibular fracture. Electronically Signed: Jovanni Carter MD at 15:55 EST , Cervical Spine CT 03/03/24 12:29 IMPRESSION: No acute fracture. Mild degenerative change. Electronically Signed: Jovanni Carter MD at 16:01 EST , Facial/Sinus 03/03/24 12:29 IMPRESSION: Stable fractures of the mandible status post ORIF. Electronically Signed: Jovanni Carter MD at 15:59 EST , Hand X-Ray 03/03/24 13:20 IMPRESSION: Fracture of the fourth proximal phalanx. Electronically Signed: Jovanni Carter MD at 14:53 EST , EKG Sinus rhythm with first-degree: Attestation: I personally reviewed and interpreted this EKG as follows: Interpretation: Sinus Rhythm Comments: Sinus rhythm with first-degree AV block, rate of 82 bpm, CO interval 2038 ms, QRS duration 96 ms, no acute ST elevation, no acute infarct noted Treatment and Re-Evaluation :: Differential diagnosis includes however is not limited to: Breakthrough seizure, intracranial bleeding, mandible fracture, right hand fracture, metacarpal fracture, electrolyte abnormality, concussion, dehydration, drug abuse Patient appears generally well, vital signs are stable, patient is nontoxic-appearing. Presenting to the emergency department for a third breakthrough seizure. This is the patient's third visit in the last day. At this time, I spoke with the patient, she will need to be admitted to hospital, I do believe that she poses a risk to her self. Patient will receive IV Depakote, she has not taken her Depakote in 5 months. Patient will receive repeat scans of her brain, facial bones as well as cervical spine. She does have a new injury of her right hand that needs to be x-rayed. Patient was seen basic laboratory values, as well as a Depakote level. Urinalysis, urine , urine drug abuse will also be ordered. All radiologic examinations were read, reviewed by the emergency department attending. From these reads, a plan of care will be put in place. Patient be given fentanyl for pain medicine secondary to the right hand, secondary to her blood pressure being 90 systolic. Patient Remained stable, no seizure activity here. Patient's laboratory values show a normal CBC, patient's chemistries were unremarkable, patient's urine drug screen was negative. Patient's x-ray of the right hand shows a fracture of the fourth proximal phalanx. I did reach out to orthopedic, I did speak with them regarding this, they prefer the patient be placed in a ulnar gutter splint. I did place the patient in the splint. Neurovascular intact after the splint applied. CT scan of the brain showed no acute process CT scan of cervical spine showed no acute fracture. The CT of the facial and sinuses showed a stable fracture of the mandible status post ORIF. At this time, I do believe the patient would benefit from admission. Patient has been discharged home x 2 and has had seizures with multiple falls. Patient needs to be admitted to hospital for observation as well as to make sure that she is followed up with her neurologist as well as Depakote. Patient's Depakote level was within normal limits however she did receive a IV dose less than 12 hours ago. I will reach out to the hospitalist. Discharge Plan Triage Chief Complaint: Seizure ED Midlevel Provider: Harpreet Nguyen ED Provider: Donte Pearl Dx/Rx/DC Orders Clinical Impression: Breakthrough seizure, Noncompliance with medication regimen, Closed head injury, Fracture of proximal phalanx of finger, Multiple falls Prescriptions: No Action amitriptyline 100 MG tablet 300 mg PO QHS potassium chloride 20 mEq tablet extended release 20 meq PO BID Qty: 14 0RF ondansetron 8 mg tablet,disintegrating 8 mg PO Q8H PRN (Reason: nausea and vomiting) Qty: 20 0RF gabapentin 800 mg tablet 800 mg PO TID 14 Days Qty: 42 0RF divalproex 250 mg Tablet,Delayed Release (Dr/Ec) 250 mg PO BIDCM melatonin 3 MG tablet 3 mg PO QHS PRN (Reason: Insomnia) Primary Care Provider: Giancarlo Espinosa Referrals: Giancarlo Espinosa MD [Primary Care Provider] - Print Language: Latvian
[2024-03-03] MEDS: 0.9% Normal Saline (1000mL) 1,000 ML 999 ML IV (13:02)
[2024-03-03] MEDS: Ondansetron 4 MG/2 ML Vial IV (13:02)
[2024-03-03] MEDS: fentaNYL 100 MCG/2 ML Ampul 50 MCG IV (13:02)
[2024-03-03 13:15] LABS: Absolute Lymphocyte Count 2.43 X10^3/uL (0.83-4.51); Absolute Neutrophil Count 7.4 X10^3/uL (2.0-7.7); Basophil# 0.03 X10^3/uL; Basophil% 0.3 % (0-1); Eosinophil# 0.01 X10^3/uL; Eosinophils% 0.1 % (0-5); Hematocrit 35.7 % (37-47); Hemoglobin 11.7 g/dL (12.0-15.0); Lymphocyte # 2.43 X10^3/ul (0.83-4.51); Lymphocyte % 22.1 % (19-41); Mean Corp Hgb Conc 32.8 g/dL (32-36); Mean Corpuscular Hgb 30.4 pg (27.0-32.0); Mean Corpuscular Volume 92.7 fL (81-99); Mean Platelet Vol. 9.3 fl (6.2-12.0); Monocyte# 1.09 X10^3/uL; Monocyte% 9.9 % (0-10); NRBC Flagged by Analyzer 0 % (0-5); Neutrophil # 7.38 X10^3/uL (2.7-7.7); Neutrophil % 67.1 % (47-70); Platelet Count 363 K/mm3 (150-450); RBC Distribution Width CV 13.5 % (11.6-14.6); RBC Distribution Width SD 45.1 fl (35.1-43.9); Red Blood Count 3.85 M/mm3 (4.2-5.4)
--- NOTE | 2024-03-03 13:20 | RAD_ITS ---
STUDY: X-RAY - RIGHT HAND REASON FOR EXAM: Female, 44 years old. FALL TECHNIQUE: 3 view(s) of the hand. COMPARISON: None. FINDINGS: Normal radiocarpal articulation. Normal distal radioulnar joint. Normal visualized carpal bones. Normal carpal articulations Normal carpometacarpal articulation of the thumb. Normal second through fifth carpometacarpal joints. Normal metacarpi. Normal metacarpophalangeal joint of the thumb. Normal interphalangeal joint of the thumb. Normal proximal and distal phalanges of the thumb. Normal metacarpophalangeal joints of the second through fifth fingers. Normal proximal and distal interphalangeal joints of the second through fifth fingers. Normal phalanges of the second, third, and fifth fingers. There is acute comminuted fracture of the base of the fourth proximal phalanx with dorsal and ulnar angulation. The soft tissue structures are unremarkable. RAD/Hand Min 3 Views IMPRESSION: Fracture of the fourth proximal phalanx. Electronically Signed: Jovanni Carter MD at 14:53 EST ,
[2024-03-03 13:34] LABS: Anion Gap 5 (5-15); BUN 10 mg/dL (7-18); BUN/Creat Ratio 14.6 RATIO (10-20); Calcium,Total 9.4 mg/dL (8.5-10.1); Chloride 105 mmol/L (98-107); Creatinine, Serum 0.69 mg/dL (0.55-1.02); EST Glomerular Filtration Rate 99 mL/min (>60); Est Glom Filt Rate - Afr Amer 119 mL/min (>60); Estimated Creatinine Clearance 87.04 ml/min; Glucose 86 mg/dL (74-106); Potassium 3.5 mmol/L (3.5-5.1); Sodium Level 138 mmol/L (136-145); Troponin-I HS 4 pg/mL (3.0-54.0); Valproic Acid (Depakene) Level 52 ug/mL (50-100)
[2024-03-03] MEDS: oxyCODONE 5 MG Tablet PO (13:44)
[2024-03-03] MEDS: WATER IV (14:27)
[2024-03-03] MEDS: DEXTROSE 5% IV (14:27)
[2024-03-03] MEDS: VALPROATE SODIUM IV (14:27)
[2024-03-03 14:30] LABS: Color, Urine Yellow (Yellow); Glucose, Dipstick Normal (Normal); Ketone-Dipstick Negative (Negative); Leukocyte Esterase-Dipstick Negative /ul (Negative); Nitrite-Dipstick Negative (Negative); Occult Blood-Urine Negative /ul (Negative); Protein-Dipstick Negative (Negative); Specific Gravity, Urine 1.005 (1.002-1.030); Urine Bilirubin Dipstick Negative (Negative); Urine Clarity Clear (Clear); Urine Urobilinogen Normal (Normal)
[2024-03-03 14:31] LABS: Internal QC Validated? YES +Cl - CLEAR BKGD; Pregnancy, Urine Negative Negative
[2024-03-03 14:38] LABS: Red Blood Cells-Urine 0 SEEN /hpf (0-5); White Blood Cells 0-5 SEEN /hpf (0-5)
[2024-03-03 14:39] LABS: Bacteria 2+ /hpf (None Seen); Mucous, Urine 0 SEEN /hpf (<or=2+); Squamous Epithelial Cells - UA 5-10 SEEN /hpf (5-10)
[2024-03-03 14:45] LABS: Amphetamine Urine VISTA NEGATIVE (<1000 ng/mL); Barbiturate Urine VISTA NEGATIVE (< 200 ng/mL); Benzodiazepine Urine VISTA NEGATIVE (< 200 ng/mL); Cocaine Urine VISTA NEGATIVE (< 300 ng/mL); Ecstacy Urine VISTA NEGATIVE (< 500 ng/mL); Methadone Urine VISTA NEGATIVE (< 300 ng/mL); PCP Urine VISTA NEGATIVE (< 25 ng/mL); THC Urine VISTA NEGATIVE (< 50 ng/mL); Vista UDS pH Range 7
[2024-03-03] MEDS: Morphine 4 MG/ML Syringe IV (15:14)
--- NOTE | 2024-03-03 15:57 | ED.RN ---
This Rn spoke to Tuyet in [place] regarding delay read.
--- NOTE | 2024-03-03 16:12 | HP.PCM.HOS_ITS ---
HPI - General General Date of Admission: 03/03/24 Date of Service: 03/03/24 Chief Complaint: Fall, recurrent breakthrough seizures. HPI Narrative The patient is a 44 y/o F w/ PMHx: Chronic anemia, Seizure disorder with medication noncompliance reportedly secondary to insurance/medication coverage issues, Polysubstance abuse, Anxiety and Depression, Chart reported history multiple sclerosis who presents to the [facility] ED on 03/03/2024 with a history of 3 ED visits and a short course secondary to recurrent breakthrough seizures with mechanical falls with last ED evaluation prior to current at midnight on day of presentation with at that time administration of IV Depakote load given subtherapeutic Depakote level with laceration repair of the lip with noted status post ORIF left mandible fracture with incomplete healing and evidence of a commuted fracture of the right mandible neck with associated dislocation at the right TMJ now again returning at noon on 03/03/2024 secondary to recurrent seizure unfortunately falling down 3-4 steps at this time with recurrent facial pain and right hand pain prompting ED reevaluation. Patient states she had lost her insurance and cannot afford her medications previously but she now has insurance again. Workup in the ED included at current presentation T96.9, heart 105, BP 9457, respiratory rate 16, 98% on room air with most recent repeat vitals heart rate 85, BP 105/74, respiratory rate 16, 96% room air, CBC with WBC 11, [id number], MCV 92.7, platelet 363 without marked shift, BMP unremarkable, troponin 4, urinalysis with negative nitrite, negative leukocyte esterase with no urine RBCs or WBCs but 2+ urine bacteria noted, negative testing, UDS negative, valproic acid level still low at 52, plain film of the right hand with a fracture of the fourth proximal phalanx, CT the brain with noted mandibular fracture of the right condyle, CT cervical spine with no acute fracture with mild degenerative changes, CT of the facial bones without contrast with stable fracture of the mandible status post ORIF on the left and a 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 ED discussed case with Orthopedics Dr. Tidwell who recommended ulnar gutter splint on the R hand with plan for follow-up outpatient. [facility] Medical History (Updated 03/03/24 @ 17:[address] Jessica Oglesby MD) Noncompliance with medication regimen Methamphetamine abuse Anxiety and depression Multiple sclerosis IUD (intrauterine device) in place Seizures GERD (gastroesophageal reflux disease) Transverse myelitis Home Medications ?Medication ?Instructions ?Recorded ?Last Taken ?Type amitriptyline 100 mg tablet 300 mg PO QHS sleep 04/02/18 03/02/24 History gabapentin 800 mg tablet 800 mg PO TID 14 days #42 tabs 10/17/23 03/03/24 Rx ondansetron 8 mg disintegrating 8 mg PO Q8H PRN nausea and 10/17/23 Unknown Rx tablet vomiting #20 tabs potassium chloride 20 mEq 20 meq PO BID #14 tabs 10/17/23 03/03/24 Rx tablet,extended release divalproex 250 mg tablet,delayed 250 mg PO BIDCM 03/03/24 03/03/24 History release melatonin 3 mg tablet 3 mg PO QHS PRN Insomnia 03/03/24 03/02/24 History Allergy/AdvReac Type Severity Reaction Status Date / Time naproxen (From Naprosyn) Allergy Hives Verified 03/03/24 12:22 Family History (Updated 03/03/24 @ 17:[address] Jessica Oglesby MD) Mother , following childbirth. No problems noted. Father Throat cancer Surgical History (Updated 03/03/24 @ 17:[address] Jessica Oglesby MD) History of mandibular surgery Hx of elbow surgery Hx of tubal ligation Hx of appendectomy Social History (Updated 03/03/24 @ 17:[address] Jessica Oglesby MD) household members: none Smoking Status: Never smoker alcohol intake: never substance use type: other details: Prior Methamphetamine, smokes/snorts, clean x 4 months 03/03/24. ROS ROS Narrative Admission Review of Systems: CONSTITUTIONAL: No weight loss, fever, chills, + weakness or fatigue. HEENT: Eyes: No visual loss, blurred vision, double vision or yellow sclerae. Ears, Nose, Throat: No hearing loss, sneezing, congestion, runny nose or sore throat. SKIN: No rash or itching, lesions, wounds except + various abrasions, ecchymoses with recent falls. CARDIOVASCULAR: No chest pain, chest pressure or chest discomfort, palpitations, edema, orthopnea, syncopal events. RESPIRATORY: No shortness of breath, cough or sputum, wheezing, hemoptysis. GASTROINTESTINAL: No anorexia, nausea, vomiting or diarrhea, abdominal pain, melena, BRBPR. GENITOURINARY: No dysuria, frequency, urgency or retention. NEUROLOGICAL: + Frequent breakthrough seizures. No headache, dizziness, syncope, paralysis, ataxia, numbness or tingling in the extremities, focal weakness, change in bowel or bladder control. MUSCULOSKELETAL: + muscle, back pain, joint pain or stiffness. HEMATOLOGIC: + Chronic anemia. No marked easy bleeding or bruising. LYMPHATICS: No enlarged nodes. No history of splenectomy. PSYCHIATRIC: + History of anxiety and depression. ENDOCRINOLOGIC: No reports of sweating, cold or heat intolerance. No polyuria or polydipsia. ALLERGIES: + History of hives. Vital Signs Vital Signs Vital Signs: 03/03/24 12:07 03/03/24 14:07 Temperature 96.9 F L Temperature Source Temporal Pulse Rate 105 H 85 Respiratory Rate 16 16 Blood Pressure 90/57 L 105/74 Blood Pressure Mean 68 84 Pulse Ox 98 96 Oxygen Delivery Method Room Air Weight Weight: 134 lb Body Mass Index (BMI) 25.3 Physical Exam Narrative Physical Examination: General: Awake, alert, oriented to place, month, year, recent events, remains cooperative, seated upright in ED bed, fatigued, no evidence of any postictal. Skin: Normal color, normal turgor, no icterus, no cyanosis, except very staged ecchymoses, abrasions, right hand in ulnar gutter splint currently. HEENT: AT/NC, EOMI, PERRLA, mildly dry MM, no carotid bruits or JVD noted. Lungs: Diminished, greater bases, appropriate effort, no rales, ronchi or wheezing. Heart: Regular rate and rhythm; no gallop, rub audible. Abdomen: Soft, NTTP, ND, hyperactive BS, no appreciated HSM. Extremities: No cyanosis, no clubbing, status post fall with right hand in splint, very stage ecchymoses, abrasions, no marked peripheral edema aside from expected small amount to the right hand. Neurological: Patient awake, alert, oriented as noted, cognitive function currently appears baseline intact; pupils equally reactive to light and accommodation, cranial nerves gross normal, moving all 4 extremities, no focal deficits, strength moderately to severely global decreased. Psychiatric: Affect appears fatigued, mildly uncomfortable no acute evidence of depressive or anxiety feelings but does have underlying history. Results Lab / Micro Data 03/03/24 13:06 03/03/24 13:06 Labs: Laboratory Results - last 24 hr 03/03/24 13:06: WBC 11.0, RBC 3.85 L, Hgb 11.7 L, Hct 35.7 L, MCV 92.7, MCH 30.4, MCHC 32.8, RDW Std Deviation 45.1 H, RDW Coeff of Walt 13.5, Plt Count 363, MPV 9.3, Immature Gran % (Auto) 0.500, Neut % (Auto) 67.1, Lymph % (Auto) 22.1, [place] % (Auto) 9.9, Eos % (Auto) 0.1, Baso % (Auto) 0.3, Absolute Neuts (auto) 7.4, Absolute Lymphs (auto) 2.43, Nucleated RBC % 0, Sodium 138, Potassium 3.5, Chloride 105, Carbon Dioxide 29.0, Anion Gap 5, BUN 10, Creatinine 0.69, Estim Creat Clear Calc 87.04, Est GFR (MDRD) Af Amer 119, Est GFR (MDRD) Non-Af 99, BUN/Creatinine Ratio 14.6, Glucose 86, Calcium 9.4, Troponin I High Sens 4, Valproic Acid 52 03/03/24 14:20: Urine Color Yellow, Urine Clarity Clear, Urine pH 7.0, Ur Specific [place] 1.005, Urine Protein Negative, Urine Glucose (UA) Normal, Urine Ketones Negative, Urine Occult Blood Negative, Urine Nitrite Negative, Urine Bilirubin Negative, Urine Urobilinogen Normal, Ur Leukocyte Esterase Negative, Urine RBC 0 SEEN, Urine WBC 0-5 SEEN, Ur Squamous Epith Cells 5-10 SEEN, Urine Bacteria 2+, Urine Mucus 0 SEEN, Urine Test Negative, Urine Opiates Screen NEGATIVE, Urine Methadone Screen NEGATIVE, Ur Barbiturates Screen NEGATIVE, Ur Phencyclidine Scrn NEGATIVE, Ur Amphetamines Screen NEGATIVE, MDMA (Ecstasy) Screen NEGATIVE, U Benzodiazepines Scrn NEGATIVE, Urine Cocaine Screen NEGATIVE, U Cannabinoids Screen NEGATIVE, Ur Drug Screen Comment Imaging Radiology Impression Brain CT 03/03/24 12:29 IMPRESSION: Normal unenhanced CT scan of the brain. Mandibular fracture. Electronically Signed: Jovanni Carter MD at 15:55 EST , Cervical Spine CT 03/03/24 12:29 IMPRESSION: No acute fracture. Mild degenerative change. Electronically Signed: Jovanni Carter MD at 16:01 EST , Facial/Sinus 03/03/24 12:29 IMPRESSION: Stable fractures of the mandible status post ORIF. Electronically Signed: Jovanni Carter MD at 15:59 EST , Hand X-Ray 03/03/24 13:20 IMPRESSION: Fracture of the fourth proximal phalanx. Electronically Signed: Jovanni Carter MD at 14:53 EST , Assessment & Plan Assessment/Plan (1) Fracture of proximal phalanx of finger: (2) Multiple falls: (3) Breakthrough seizure: PLAN: Plan The patient is a 44 y/o F w/ PMHx: Chronic anemia, Seizure disorder with medication noncompliance reportedly secondary to insurance/medication coverage issues, Polysubstance abuse, Anxiety and Depression, Chart reported history multiple sclerosis who presents to the [facility] ED on 03/03/2024 with a history of 3 ED visits and a short course secondary to recurrent breakthrough seizures with mechanical falls with last ED evaluation prior to current at midnight on day of presentation with at that time administration of IV Depakote load given subtherapeutic Depakote level with laceration repair of the lip with noted status post ORIF left mandible fracture with incomplete healing and evidence of a commuted fracture of the right mandible neck with associated dislocation at the right TMJ now again returning at noon on 03/03/2024 secondary to recurrent seizure unfortunately falling down 3-4 steps at this time with recurrent facial pain and right hand pain prompting ED reevaluation. #1. Breakthrough recurrent seizure w/ associated recurrent Falls: Will admit to PCU, will increase to 500 mg IV BID depakote with repeat level in AM given despite loading in the ED had remained low end normal and if level more appropriate transition to oral regimen but certainly will defer to neurology recommendations, will maintain on telemetry in PCU on seizure precautions, will obtain mag level, will obtain TSH, may need to consider alternate medication but given non-compliance secondary to recent loss of insurance ideally given she now has insurance this will not be an issue. Will also continue patient 800 mg p.o. 3 times daily gabapentin. Will request Neurology consultation. PRN ativan IV for seizure activity. #2. Mechanical falls associated with breakthrough seizure activity with stable bilateral mandible fractures with left status post ORIF, stable nonunion of right, acute right hand fourth proximal phalanx fracture: Will maintain on fall and seizure precautions, nonweightbearing to right hand, continue ulnar gutter splints per orthopedic surgery recommendation, at discharge will need follow-up with Dr. Tidwell orthopedic surgery, very judicious as needed pain regimen. #3. History of polysubstance abuse: Patient notes primarily history of methamphetamine usage and reports being clean x 4 months with previous to this primarily snorting and smoking, denies any IV drug abuse, urine drug screen negative, very judicious use of as needed pain regimen. #4. Chronic normocytic anemia: Admission hemoglobin 1.7, MCV 92.7, baseline hemoglobin appears similar 10-11, stable, continue to trend. #5. Anxiety and depression: We will continue patient home amitriptyline regimen although given history but need to clarify this. #6. Chart reported history of multiple sclerosis: Patient is not the best historian but chart reported history noted, no obvious focal or chronic deficits, does have seizure disorder however as noted, continue evaluation and treatment as noted. PT/OT/CM consulted for discharge planning. #7. DVT prophylaxis: Lovenox. Charges/Coding Visit Charges Inpatient E&M: 36045 Init Hosp L3
[2024-03-03] MEDS: 0.9% Normal Saline (1000mL) 1,000 ML 100 ML IV (17:16)
[2024-03-03 17:18] LABS: Magnesium 2.1 mg/dL (1.6-2.6)
[2024-03-03] MEDS: Valproate Sodium 500 MG in Dextrose 5%-Water (50mL Bag) 50 ML 50 MG IV ×2 (18:07→21:26)
[2024-03-03] MEDS: Acetaminophen 325 MG Tablet 650 MG PO (18:10)
[2024-03-03] MEDS: Potassium Chloride Oral Tablet 20 MEQ PO (21:25)
[2024-03-03] MEDS: Amitriptyline 100 MG Tablet 300 MG PO (21:25)
[2024-03-03] MEDS: Gabapentin 800 MG Tablet PO (21:26)
[2024-03-04 01:59] VITALS: BP 103/64; PULSE 83; RESP 15; TEMP 36.8; O2SAT 96
[2024-03-04 03:00] VITALS: PULSE 83
[2024-03-04 04:47] LABS: Absolute Lymphocyte Count 2.94 X10^3/uL (0.83-4.51); Absolute Neutrophil Count 3.1 X10^3/uL (2.0-7.7); Basophil# 0.03 X10^3/uL; Basophil% 0.4 % (0-1); Eosinophil# 0.15 X10^3/uL; Eosinophils% 2.2 % (0-5); Hematocrit 31.5 % (37-47); Hemoglobin 10.1 g/dL (12.0-15.0); Lymphocyte # 2.94 X10^3/ul (0.83-4.51); Mean Corp Hgb Conc 32.1 g/dL (32-36); Mean Corpuscular Hgb 30.6 pg (27.0-32.0); Mean Corpuscular Volume 95.5 fL (81-99); Mean Platelet Vol. 9.5 fl (6.2-12.0); Monocyte# 0.63 X10^3/uL; Monocyte% 9.2 % (0-10); NRBC Flagged by Analyzer 0 % (0-5); Neutrophil # 3.05 X10^3/uL (2.7-7.7); Neutrophil % 44.8 % (47-70); Platelet Count 318 K/mm3 (150-450); White Blood Count 6.8 K/mm3 (4.4-11.0)
[2024-03-04 04:53] VITALS: BMI 26.6
[2024-03-04] MEDS: Gabapentin 800 MG Tablet PO ×2 (05:26→21:32)
[2024-03-04 05:27] LABS: Valproic Acid (Depakene) Level 74 ug/mL (50-100)
[2024-03-04 05:39] LABS: ALB/GLOB Ratio 0.8 RATIO (0.9-2.4); AST(SGOT) 13 U/L (15-37); Alanine Aminotransfer ALT/SGPT 18 U/L (13-56); Albumin, Serum 2.7 g/dL (3.2-5.0); Alkaline Phosphatase 87 U/L (45-117); Anion Gap 2 (5-15); BUN 10 mg/dL (7-18); BUN/Creat Ratio 16.2 RATIO (10-20); Calcium,Total 8.7 mg/dL (8.5-10.1); Chloride 111 mmol/L (98-107); Creatinine, Serum 0.62 mg/dL (0.55-1.02); EST Glomerular Filtration Rate 111 mL/min (>60); Est Glom Filt Rate - Afr Amer 135 mL/min (>60); Estimated Creatinine Clearance 103.35 ml/min; Globulin 3.2 g/dL (2.2-4.2); Glucose 78 mg/dL (74-106); Potassium 4.2 mmol/L (3.5-5.1); Protein, Total 5.9 g/dL (6.4-8.2); Sodium Level 141 mmol/L (136-145); Thyroid Stim Hormone (TSH) 0.758 uIU/mL (0.358-3.740)
[2024-03-04 07:59] VITALS: BP 105/70; PULSE 85; RESP 16; TEMP 36.6; O2SAT 100
[2024-03-04 08:40] VITALS: PULSE 83; RESP 16
[2024-03-04] MEDS: Acetaminophen 325 MG Tablet 650 MG PO (08:53)
[2024-03-04] MEDS: Potassium Chloride Oral Tablet 20 MEQ PO ×2 (08:53→21:32)
[2024-03-04] MEDS: Enoxaparin 40 MG/0.4 ML Syringe SC (08:54)
--- NOTE | 2024-03-04 09:21 | NEURO.CONS ---
Assessment and Plan: Neuro Assessment/Plan YARED URENA is a 44 F with a past medical history of MS and seizure, being evaluated by Teleneurology for several days of daily seizures. The seizures themselves are unclear if these are epileptic of non-epileptic. There appear to have been no descriptions of the events but can occur quite frequently. They started sometime 7 yrs ago and she has been on Keppra and VPA with varying levels of success but was having breakthrough seizures with both. Unclear when the Keppra was stopped but pt states she was seen at [facility] briefly for these. Exam with some weakness but largely noncontributory. Recent iamging has been unremarkable and suggests she may not actually have MS (cannot rule out TM thought). Plan: - please obtain Neurology records from [facility], if she has never had cEEG or had spell capture in the past, will recommend transfer for that - continue VPA 500mg BID - routine EEG - as she has had so many seizures in the last several days, would expect some level of irritability on her EEG with the extent of events she has had if these are epileptiform seizures I personally attended this patient and spent a total time of 60minutes evaluating this patient including clinical assessment, review of chart, medical history imaging, and determining appropriate treatment and workup. HPI Consult Data Date of Consult: 03/04/24 HPI Narrative HPI Narrative: Patient is a 44-year-old female with past medical history of substance abuse, seizures treated Depakote, history of medication noncompliance secondary to lack of insurance at, GERD, MS who presents to the emergency department with a chief complaint of seizure and falling down a set of stairs. She states that this is her third visit in the last 24 hours. She states that for the past several months she has not had any insurance therefore she has been off her Depakote. States that she was seen yesterday twice for seizures falling down striking her face and hitting her head. Patient was discharged around 7 AM this morning and after given IV Depakote as well as prescription. She states that she does not have a neurologist currently she states that she went home and had a fall down 3-4 steps. Patient is complaining of right hand pain. Neurologic History She states for some reason she has been falling left and right and been passing out more. Patient was walking up the steps and got lightheaded and dizzy and fell down the stairs. No one was there with her. Patient became really lightheaded. That is what happens right before her seizure. Never bit her tongue. Did not lose bowel or bladder continence. She fell going up the stairs last week, lost consciousness with that as well. Patient states that last time she was able to afford VPA was 4-5 months ago. there is a place she goes to to try and get the VPA but she is not taking it regularly like she was. It's been about 8-9 months since she has been able to take her VPA twice a day every day. Last seizure was last yr again per her. Toward the end of the day after being in the hospital she had another seizure at home. She was talking to her neighbor with that event, but does not remember it happening, last thing she remembers was being in the hospital. When she was on VPA in the past she was still having seizure 1-2x a week. These are small seizures, where she will just feel odd for a short period of time and then it will pass quicly. She had aneurologist with [facility] but was only with them for a couple months. She was dx with sz at [facility] per her and she was having seizures 2 years ago (there is no record of this in Was having the sz when she was off the VPA and was having small seizures weekly but has monthly big seizure and was getting treated at [facility]. Pt had transverse myelitis. That was 13 yrs ago and she states she is on medication for the MS. On review of her chart - unclear when she developed the transverse myelitis diagnosis but as of 2019, she had told neurology she had had seizures for 7 years up til then. at that time she was on Keppra 1500mg BID and was put on VPA 500mg BID since then. She has presented intermittently with confusion or falls and has told providers these are 2/2 breakthrough seizures but never had them apparently in the hospital. EEG in 2019 with slowing, but no epileptiform discharges. 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 She was presenting regularly with MS flares from [id number] then started presenting with seizures. She has had a numbne of hospital stays for falls, [place]arton, etc. PENDING SALE TO [facility] Medical History (Updated 03/03/24 @ 17:[address] Jessica Oglesby MD) Noncompliance with medication regimen Methamphetamine abuse Anxiety and depression Multiple sclerosis IUD (intrauterine device) in place Seizures GERD (gastroesophageal reflux disease) Transverse myelitis Home Medications ?Medication ?Instructions ?Recorded ?Last Taken ?Type amitriptyline 100 mg tablet 300 mg PO QHS sleep 04/02/18 03/02/24 History gabapentin 800 mg tablet 800 mg PO TID 14 days #42 tabs 10/17/23 03/03/24 Rx ondansetron 8 mg disintegrating 8 mg PO Q8H PRN nausea and 10/17/23 Unknown Rx tablet vomiting #20 tabs potassium chloride 20 mEq 20 meq PO BID #14 tabs 10/17/23 03/03/24 Rx tablet,extended release divalproex 250 mg tablet,delayed 250 mg PO BIDCM 03/03/24 03/03/24 History release melatonin 3 mg tablet 3 mg PO QHS PRN Insomnia 03/03/24 03/02/24 History Allergy/AdvReac Type Severity Reaction Status Date / Time naproxen (From Naprosyn) Allergy Hives Verified 03/03/24 12:22 Family History (Updated 03/03/24 @ 17:[address] Jessica Oglesby MD) Mother , following childbirth. No problems noted. Father Throat cancer Surgical History (Updated 03/03/24 @ 17:[address] Jessica Oglesby MD) History of mandibular surgery Hx of elbow surgery Hx of tubal ligation Hx of appendectomy Social History (Updated 03/03/24 @ 17:[address] Jessica Oglesby MD) household members: none Smoking Status: Never smoker alcohol intake: never substance use type: other details: Prior Methamphetamine, smokes/snorts, clean x 4 months 03/03/24. Vital Signs Vital Signs Vital Signs: 03/03/24 12:07 03/03/24 14:07 03/03/24 16:00 Temperature 96.9 F L Temperature Source Temporal Pulse Rate 105 H 85 83 Pulse Strength Respiratory Rate 16 16 16 Respiratory Effort Respiratory Depth Respiratory Pattern Blood Pressure 90/57 L 105/74 110/78 Blood Pressure Mean 68 84 88 Blood Pressure Source Blood Pressure Position Blood Pressure Location Pulse Ox 98 96 97 Oxygen Delivery Method Room Air Room Air 03/03/24 16:47 03/03/24 17:09 03/03/24 18:00 Temperature 97.6 F L 98.1 F Temperature Source Oral Pulse Rate 74 80 Pulse Strength Respiratory Rate 16 18 Respiratory Effort Normal Non-Labored Respiratory Depth Normal Respiratory Pattern Normal Blood Pressure 113/79 117/83 H Blood Pressure Mean 90 94 Blood Pressure Source Blood Pressure Position Blood Pressure Location Pulse Ox 98 100 Oxygen Delivery Method Room Air Room Air 03/03/24 18:59 03/03/24 19:00 03/03/24 19:50 Temperature 98.4 F Temperature Source Temporal Pulse Rate 83 83 Pulse Strength Respiratory Rate 17 Respiratory Effort Respiratory Depth Respiratory Pattern Blood Pressure 102/66 Blood Pressure Mean 78 Blood Pressure Source Monitor Blood Pressure Position Semi-Fowlers Blood Pressure Location Right Arm Pulse Ox 98 94 Oxygen Delivery Method Room Air Room Air 03/03/24 22:00 03/04/24 01:59 03/04/24 02:16 Temperature 98.3 F Temperature Source Temporal Pulse Rate 83 Pulse Strength Respiratory Rate 15 Respiratory Effort Normal Non-Labored Normal Non-Labored Respiratory Depth Normal Normal Respiratory Pattern Normal Normal Blood Pressure 103/64 Blood Pressure Mean 77 Blood Pressure Source Monitor Blood Pressure Position Semi-Fowlers Blood Pressure Location Right Arm Pulse Ox 96 Oxygen Delivery Method Room Air Room Air Room Air 03/04/24 03:00 03/04/24 07:38 03/04/24 07:59 Temperature 97.8 F Temperature Source Temporal Pulse Rate 83 85 Pulse Strength Respiratory Rate 16 Respiratory Effort Respiratory Depth Respiratory Pattern Blood Pressure 105/70 Blood Pressure Mean 81 Blood Pressure Source Monitor Blood Pressure Position Semi-Fowlers Blood Pressure Location Left Arm Pulse Ox 100 Oxygen Delivery Method Room Air Room Air 03/04/24 08:37 03/04/24 08:40 Temperature Temperature Source Pulse Rate 83 Pulse Strength Normal (2+) Respiratory Rate 16 Respiratory Effort Normal Respiratory Depth Normal Respiratory Pattern Normal Blood Pressure Blood Pressure Mean Blood Pressure Source Blood Pressure Position Blood Pressure Location Pulse Ox Oxygen Delivery Method Room Air Weight Weight: 66.2 kg Body Mass Index (BMI) 26.6 EEG Results Procedure Details EEG Procedure Details: YARED URENA is a 44 year old F with a past medical history of , who presents for evaluation of Electroencephalogram on DATE at TIME Physical Exam Narrative -? General: Laying comfortably in bed; in no acute distress. -? HENT: Normal oropharynx and mucosa. Normal external appearance of ears and nose. Exophthalmos. -? Neck: Supple, no pain or tenderness -? CV:? No peripheral edema. -? Pulmonary:? Normal respiratory effort. -? Ext: No cyanosis, edema, or deformity -? Skin: No rash. Normal palpation of skin.? -? Musculoskeletal: full range of motion; no joint tenderness. Normal digits and nails by inspection. No clubbing. -? NEURO: -? Mental Status: The patient was alert and oriented to time, place, and person. Normal recent/remote memory, concentration, and general fund of knowledge. -? Language: speech is clear.? Naming, repetition, fluency, and comprehension intact. -? Cranial Nerves: [id number]/brisk. EOMI, visual fried full, no facial asymmetry, facial sensation diminished on the L V1,2,3t, hearing intact, tongue midline, no evidence of atrophy or fibrillations. -? Motor: normal bulk, tone, and strength throughout. No pronator drift or satelliting. Upper and lower extremities equal bilaterally. -?Detailed strength exam as performed by the nurse/CAMILO and witnessed by the physician: R L SA 5 5 EE EF WE WF Plater Helper HF 5 5 KE KF 5 5 DF 5 5 PF -? Tone: is normal and bulk is normal -? Sensation-diminished on the L leg -? Coordination: No dysmetria on [id number], finger follow finger , RLE ataxia -? Gait- deferred Lab / Micro Data 03/04/24 03:33 03/04/24 03:33 Labs: Laboratory Results - last 24 hr 03/03/24 13:06: WBC 11.0, RBC 3.85 L, Hgb 11.7 L, Hct 35.7 L, MCV 92.7, MCH 30.4, MCHC 32.8, RDW Std Deviation 45.1 H, RDW Coeff of Walt 13.5, Plt Count 363, MPV 9.3, Immature Gran % (Auto) 0.500, Neut % (Auto) 67.1, Lymph % (Auto) 22.1, [place] % (Auto) 9.9, Eos % (Auto) 0.1, Baso % (Auto) 0.3, Absolute Neuts (auto) 7.4, Absolute Lymphs (auto) 2.43, Nucleated RBC % 0, Sodium 138, Potassium 3.5, Chloride 105, Carbon Dioxide 29.0, Anion Gap 5, BUN 10, Creatinine 0.69, Estim Creat Clear Calc 87.04, Est GFR (MDRD) Af Amer 119, Est GFR (MDRD) Non-Af 99, BUN/Creatinine Ratio 14.6, Glucose 86, Calcium 9.4, Magnesium 2.1, Troponin I High Sens 4, Valproic Acid 52 03/03/24 14:20: Urine Color Yellow, Urine Clarity Clear, Urine pH 7.0, Ur Specific [place] 1.005, Urine Protein Negative, Urine Glucose (UA) Normal, Urine Ketones Negative, Urine Occult Blood Negative, Urine Nitrite Negative, Urine Bilirubin Negative, Urine Urobilinogen Normal, Ur Leukocyte Esterase Negative, Urine RBC 0 SEEN, Urine WBC 0-5 SEEN, Ur Squamous Epith Cells 5-10 SEEN, Urine Bacteria 2+, Urine Mucus 0 SEEN, Urine Test Negative, Urine Opiates Screen NEGATIVE, Urine Methadone Screen NEGATIVE, Ur Barbiturates Screen NEGATIVE, Ur Phencyclidine Scrn NEGATIVE, Ur Amphetamines Screen NEGATIVE, MDMA (Ecstasy) Screen NEGATIVE, U Benzodiazepines Scrn NEGATIVE, Urine Cocaine Screen NEGATIVE, U Cannabinoids Screen NEGATIVE, Ur Drug Screen Comment 03/04/24 03:33: WBC 6.8, RBC 3.30 L, Hgb 10.1 L, Hct 31.5 L, MCV 95.5, MCH 30.6, MCHC 32.1, RDW Std Deviation 48.0 H, RDW Coeff of Walt 14.0, Plt Count 318, MPV 9.5, Immature Gran % (Auto) 0.400, Neut % (Auto) 44.8 L, Lymph % (Auto) 43.0 H, [place] % (Auto) 9.2, Eos % (Auto) 2.2, Baso % (Auto) 0.4, Absolute Neuts (auto) 3.1, Absolute Lymphs (auto) 2.94, Nucleated RBC % 0, Sodium 141, Potassium 4.2, Chloride 111 H, Carbon Dioxide 28.0, Anion Gap 2 L, BUN 10, Creatinine 0.62, Estim Creat Clear Calc 103.35, Est GFR (MDRD) Af Amer 135, Est GFR (MDRD) Non-Af 111, BUN/Creatinine Ratio 16.2, Glucose 78, Calcium 8.7, Total Bilirubin 0.20, AST 13 L, ALT 18, Alkaline Phosphatase 87, Total Protein 5.9 L, Albumin 2.7 L, Globulin 3.2, Albumin/Globulin Ratio 0.8 L, TSH 0.758, Valproic Acid 74 Imaging Radiology Impression Brain CT 03/03/24 12:29 IMPRESSION: Normal unenhanced CT scan of the brain. Mandibular fracture. Electronically Signed: Jovanni Carter MD at 15:55 EST Reading Location ID and State: [facility] / [place] , Service support , Cervical Spine CT 03/03/24 12:29 IMPRESSION: No acute fracture. Mild degenerative change. Electronically Signed: Jovanni Carter MD at 16:01 EST Reading Location ID and State: [facility] / [place] , Service support , Facial/Sinus 03/03/24 12:29 IMPRESSION: Stable fractures of the mandible status post ORIF. Electronically Signed: Jovanni Carter MD at 15:59 EST , Hand X-Ray 03/03/24 13:20 IMPRESSION: Fracture of the fourth proximal phalanx. Electronically Signed: Jovanni Carter MD at 14:53 EST , Active Medications Active Medications Active Medications: Current Medications Generic Name Dose Route Start Last Admin Trade Name Freq PRN Reason Stop Dose Admin Acetaminophen 650 mg 03/03/24 17:03 03/04/24 08:53 Acetaminophen 325 Mg Tablet PO 650 mg Q4H PRN PRN Administration Fever, pain 1-10/10 Al Hydroxide/Mg Hydroxide 30 ml 03/03/24 17:03 Mag Hydrox/Al Hydrox/Simeth 30 Ml Udc PO Q6H PRN PRN Gastric Burning Albuterol Sulfate 2.5 mg 03/03/24 17:03 Albuterol 2.5 Mg/3 Ml Vial.Neb. INHALATION Q2H PRN PRN Dyspnea, wheezing Amitriptyline HCl 300 mg 03/03/24 22:00 03/03/24 21:25 Amitriptyline 100 Mg Tablet PO 300 mg QHS EMILIA Administration Enoxaparin Sodium 40 mg 03/04/24 10:00 03/04/24 08:54 Enoxaparin 40 Mg/0.4 Ml Syringe SC 40 mg DAILY EMILIA Administration Gabapentin 800 mg 03/03/24 22:00 03/04/24 05:26 Gabapentin 800 Mg Tablet PO 800 mg TID EMILIA Administration Guaifenesin 20 ml 03/03/24 17:03 Guaifenesin 10 Ml Udc (200mg/10ml) PO Q4H PRN PRN COUGH Hydralazine HCl 10 mg 03/03/24 17:03 Hydralazine 20 Mg/Ml Vial IV Q4H PRN PRN SBP > 160 Protocol Valproic Acid 500 mg/ Dextrose 55 mls @ 50 mls/hr 03/03/24 17:03 03/03/24 22:32 IV Infused BID EMILIA Infusion Lorazepam 1 mg 03/03/24 17:49 Lorazepam 2 Mg/Ml Syringe IV PRN PRN seizure activity, notify Melatonin 3 mg 03/03/24 17:03 Melatonin 3 Mg Tablet PO QHS PRN Insomnia Ondansetron HCl 4 mg 03/03/24 17:03 Ondansetron 4 Mg/2 Ml Vial IV Q8H PRN PRN NAUSEA/VOMITING Oxycodone HCl 5 mg 03/03/24 17:03 Oxycodone 5 Mg Tablet PO Q6H PRN PRN Pain Score 4-10 Potassium Chloride 20 meq 03/03/24 22:00 03/04/24 08:53 Potassium Chloride Oral Tablet 20 Meq PO 20 meq BID EMILIA Administration Prochlorperazine Edisylate 5 mg 03/03/24 17:03 Prochlorperazine 10 Mg/2 Ml Vial IV Q4H PRN PRN Breakthrough Nausea/Vomiting Senna/Docusate Sodium 2 tablet 03/03/24 17:03 Senna/Docusate Sodium 1 Tablet PO BID PRN PRN Constipation Sodium Chloride 10 - 40 ml 03/03/24 17:19 0.9% Saline Lock 10 Ml Syringe IV UD PRN SALINE FLUSH
--- NOTE | 2024-03-04 10:13 | PN.HOSP_ITS ---
Reason for Visit Reason for Visit: Diagnoses Epilepsy, unspecified, intractable, without status epilepticus (03/03/24) Repeated falls (03/03/24) Displaced fracture of proximal phalanx of unspecified finger, initial encounter for closed fracture (03/03/24) Subjective Subjective Saw patient at bedside this morning. Patient had just finished her visit with teleneurology when I saw her. She was sitting up comfortably in bed in no acute distress. She did report some right hand pain currently and stated the pain medications have been helping her. Denied any other new concerns today. Objective Data Objective Data Vital Signs: Vital Signs Temp Pulse Resp BP Pulse Ox O2 Del Method 97.8 F 83 16 105/70 100 Room Air 03/04/24 07:59 03/04/24 08:40 03/04/24 08:40 03/04/24 07:59 03/04/24 07:59 03/04/24 08:40 Oxygen Delivery Method Room Air Weight: 66.2 kg Body Mass Index (BMI) 26.6 Intake & Output: Intake and Output for Last 24 Hours 03/02/24 03/03/24 03/04/24 23:59 23:59 23:59 Intake Total 1290.3 / 1290.3 1000 / 1000 Output Total 550 / 550 200 / 200 Balance 740.3 / 740.3 800 / 800 Lab / Micro Data 03/04/24 03:33 03/04/24 03:33 Labs: Laboratory Results - last 24 hr 03/03/24 13:06: WBC 11.0, RBC 3.85 L, Hgb 11.7 L, Hct 35.7 L, MCV 92.7, MCH 30.4, MCHC 32.8, RDW Std Deviation 45.1 H, RDW Coeff of Walt 13.5, Plt Count 363, MPV 9.3, Immature Gran % (Auto) 0.500, Neut % (Auto) 67.1, Lymph % (Auto) 22.1, [place] % (Auto) 9.9, Eos % (Auto) 0.1, Baso % (Auto) 0.3, Absolute Neuts (auto) 7.4, Absolute Lymphs (auto) 2.43, Nucleated RBC % 0, Sodium 138, Potassium 3.5, Chloride 105, Carbon Dioxide 29.0, Anion Gap 5, BUN 10, Creatinine 0.69, Estim Creat Clear Calc 87.04, Est GFR (MDRD) Af Amer 119, Est GFR (MDRD) Non-Af 99, BUN/Creatinine Ratio 14.6, Glucose 86, Calcium 9.4, Magnesium 2.1, Troponin I High Sens 4, Valproic Acid 52 03/03/24 14:20: Urine Color Yellow, Urine Clarity Clear, Urine pH 7.0, Ur Specific [place] 1.005, Urine Protein Negative, Urine Glucose (UA) Normal, Urine Ketones Negative, Urine Occult Blood Negative, Urine Nitrite Negative, Urine Bilirubin Negative, Urine Urobilinogen Normal, Ur Leukocyte Esterase Negative, Urine RBC 0 SEEN, Urine WBC 0-5 SEEN, Ur Squamous Epith Cells 5-10 SEEN, Urine Bacteria 2+, Urine Mucus 0 SEEN, Urine Test Negative, Urine Opiates Screen NEGATIVE, Urine Methadone Screen NEGATIVE, Ur Barbiturates Screen NEGATIVE, Ur Phencyclidine Scrn NEGATIVE, Ur Amphetamines Screen NEGATIVE, MDMA (Ecstasy) Screen NEGATIVE, U Benzodiazepines Scrn NEGATIVE, Urine Cocaine Screen NEGATIVE, U Cannabinoids Screen NEGATIVE, Ur Drug Screen Comment 03/04/24 03:33: WBC 6.8, RBC 3.30 L, Hgb 10.1 L, Hct 31.5 L, MCV 95.5, MCH 30.6, MCHC 32.1, RDW Std Deviation 48.0 H, RDW Coeff of Walt 14.0, Plt Count 318, MPV 9.5, Immature Gran % (Auto) 0.400, Neut % (Auto) 44.8 L, Lymph % (Auto) 43.0 H, [place] % (Auto) 9.2, Eos % (Auto) 2.2, Baso % (Auto) 0.4, Absolute Neuts (auto) 3.1, Absolute Lymphs (auto) 2.94, Nucleated RBC % 0, Sodium 141, Potassium 4.2, Chloride 111 H, Carbon Dioxide 28.0, Anion Gap 2 L, BUN 10, Creatinine 0.62, Estim Creat Clear Calc 103.35, Est GFR (MDRD) Af Amer 135, Est GFR (MDRD) Non-Af 111, BUN/Creatinine Ratio 16.2, Glucose 78, Calcium 8.7, Total Bilirubin 0.20, A ST 13 L, ALT 18, Alkaline Phosphatase 87, Total Protein 5.9 L, Albumin 2.7 L, Globulin 3.2, Albumin/Globulin Ratio 0.8 L, TSH 0.758, Valproic Acid 74 Radiography Diagnostic Testing: Radiology Impression Brain CT 03/03/24 12:29 IMPRESSION: Normal unenhanced CT scan of the brain. Mandibular fracture. Electronically Signed: Jovanni Carter MD at 15:55 EST Reading Location ID and State: [facility] / [place] , Service support , Cervical Spine CT 03/03/24 12:29 IMPRESSION: No acute fracture. Mild degenerative change. Electronically Signed: Jovanni Carter MD at 16:01 EST Reading Location ID and State: [facility] / [place] , Service support , Facial/Sinus 03/03/24 12:29 IMPRESSION: Stable fractures of the mandible status post ORIF. Electronically Signed: Jovanni Carter MD at 15:59 EST Reading Location ID and State: [facility] / [place] , Service support , Hand X-Ray 03/03/24 13:20 IMPRESSION: Fracture of the fourth proximal phalanx. Electronically Signed: Jovanni Carter MD at 14:53 EST Reading Location ID and State: [facility] / [place] , Service support , Physical Exam Const alert, oriented x3, no apparent distress and average body habitus Constitutional Narrative: Middle-age female, appears older than stated age, somewhat unkempt appearing, somewhat anxious appearing, otherwise sitting up fairly comfortably in bed, conversing normally, no acute distress. General Appearance: cooperative and comfortable HEENT normocephalic, head/scalp atraumatic, hearing grossly normal bilaterally, nasal mucous membranes and turbinates normal and moist oral mucous membranes Eyes PERRL, EOMs intact bilaterally and conjunctivae normal Neck full ROM Chest inspection of chest normal Resp normal respiratory effort, normal air movement, no use of accessory muscles and clear to auscultation bilaterally Cardio regular rate, regular rhythm, no murmurs and peripheral pulses 2+ throughout GI normal to inspection, nondistended, normoactive bowel sounds, soft to palpation, non-tender and non-distended Back/Spine normal ROM Extremity no pedal edema Extremity Narrative: Right hand in splint. Stable. Skin Skin Narrative: Has ecchymoses and abrasions on arms and legs in various stages of healing from her previous falls. Neuro Neuro Narrative: No focal deficits but strength mild to moderately decreased throughout. Psych mental status grossly normal Mood & Affect: anxious Assessment & Plan Assessment/Plan (1) Breakthrough seizure: (2) Multiple falls: (3) Fracture of proximal phalanx of finger: PLAN: Plan Patient is a 44-year-old female who presented [facility] ED on 03/03/2024 with falls and concern for recurrent seizures. 1. Recurrent seizures with associated recurrent falls, history of medication nonadherence ? Neurology following. PT/OT/case management consulted. Patient has history of seizures with poor medication and adherence to antiepileptic medications. Follows with [facility] neurology. Was hospitalized here from 02/26-02/28 for similar concerns. MRI brain and routine EEG were unremarkable. Depakote level was less than 3. Was suspected seizure leading to that admission was due to medication nonadherence. Patient had recurrent seizures with falls leading to this hospitalization. Loaded with Depakote on admission and repeat Depakote level back to normal range. Per neurology, will obtain neurology records from [facility] and if patient has never had continuous EEG or a spell captured in the past, will recommend transfer to [facility] for this. Continue Depakote 500 mg twice daily. Neurology also recommended another routine EEG but as this was not available on Tuesday, can follow-up with neurology on Tuesday to determine if this will be needed. 2. Right hand fracture ? Secondary to fall. Hand x-ray on admit showed a fracture of the fourth proximal phalanx. Splint in place. Pain control with Tylenol as needed and oxycodone 5 mg every 6 hours as needed. Outpatient follow-up with orthopedic surgery after discharge. 3. History of mandibular fractures s/p ORIF ? Fracture secondary to falls. Had ORIF done through [facility] in August. CT scans on this admission showed prior fractures with ORIF, no new fractures. 4. Chronic anemia ? Hemoglobin stable at baseline 10-11 on admit. 5. Anxiety/depression ? Stable. Continue home amitriptyline at night. 6. History of polysubstance abuse ? Prior history of methamphetamine use via snorting and smoking. Has been clean for about 4 months. Urine drug screen negative on admit. Encouraged continued cessation. 7. History of transverse myelitis with reported history of MS ? Patient reports history of transverse myelitis about 13 years ago. She apparently had MS diagnosed after this but no further records on this, and patient has no deficits related to MS. Will continue home gabapentin. DVT prophylaxis: Lovenox CODE STATUS: Full code, verified Expected disposition: TBD Total clinical time spent by myself addressing the patient's medical issues, reviewing all the data, and collaborating with patient's care team: 35 minutes. Charges/Coding Visit Charges Inpatient E&M: 67538 Subs Hosp L2
[2024-03-04] MEDS: Valproate Sodium 500 MG in Dextrose 5%-Water (50mL Bag) 50 ML 50 MG IV ×2 (10:14→21:31)
[2024-03-04] MEDS: 0.9% Saline Lock 10 ML Syringe IV (10:15)
[2024-03-04 14:00] VITALS: BP 107/73; PULSE 80; RESP 16; TEMP 36.9; O2SAT 97
[2024-03-04 21:31] VITALS: BP 113/81; PULSE 76; RESP 16; TEMP 37.1; O2SAT 99
[2024-03-04] MEDS: Amitriptyline 100 MG Tablet 300 MG PO (21:32)
[2024-03-05 04:05] VITALS: BP 101/76; PULSE 72; RESP 16; TEMP 36.8; O2SAT 96
[2024-03-05 04:40] VITALS: BMI 25.9
[2024-03-05] MEDS: Gabapentin 800 MG Tablet PO ×2 (06:52→13:43)
[2024-03-05 09:14] VITALS: BP 107/82; PULSE 85; RESP 16; TEMP 36.4; O2SAT 100
[2024-03-05] MEDS: Enoxaparin 40 MG/0.4 ML Syringe SC (09:16)
[2024-03-05] MEDS: Potassium Chloride Oral Tablet 20 MEQ PO (09:16)
[2024-03-05] MEDS: Valproate Sodium 500 MG in Dextrose 5%-Water (50mL Bag) 50 ML 50 MG IV (09:23)
[2024-03-05] MEDS: 0.9% Saline Lock 10 ML Syringe IV (09:24)
[2024-03-05 10:20] VITALS: O2SAT 99
--- NOTE | 2024-03-05 14:25 | CASEMGMT ---
AIDEE PRINCE Assessment Face to Face with patient for initial transition planning/care coordination assessment. AIDEE PRINCE introduced self and role at [facility], pt voices understanding. Pt is A&Ox4 and is resting comfortably in bed and is calm. Care providers, pharmacy, and demographics verified. Admitting dx: Seizures, Med non-compliance LACE Strata: 2 PCP: Giancarlo Espinosa Specialists: Denies. This RN SURESH inquired if the pt sees a Neurologist. Pt declines and states that she will get established through the but states that she is willing to take the local provider list as well. Brochure provided. Preferred Pharmacy: [facility] Insurance: [employer] Prescription Benefit: Yes - Pt states that her insurance pays for all of her medications and that she does not have any current issues/ needs. LNOK: Gacria Boyle ([place]) Living Arrangements: Pt lives alone in a single story home with 3 steps to enter ADLs/IADLs: Ind Transportation: Pt does not drive. Pt uses taxi's or the [employer] bus DME: Denies all DME uses or needs HHC/SNF: Denies history or needs Pt?s goal: Return home Plan: home no needs. 6-click is 24 and pt denies the need for HH, OP Tx, or CCN. Pt states that she feels safe returning home alone and denies further questions or concerns at this time. Report given to [employer]REGNATOR [employer] DRIER HELPER CM. Mavis Charles RN, CM
--- NOTE | 2024-03-05 14:32 | DCINST_ITS ---
Discharge Instructions Diet Discharge Diet: No restrictions DC O2, CPAP, BIPAP needs Home O2 Discharge instructions: No Dressing / Incision Discharge Activity: Return to Normal Activity and May Not Drive (until released by your primary care physician) Weight Bearing Status: Full weight bearing Follow Up Care Test Results: Test results from this visit will be discussed in further detail at your follow- up appointment, if applicable. Discharge Plan Admission Admit Date/Time: 03/03/24 16:23 Primary Reason for Your Visit: seizure Attending Provider: Giancarlo Drake Primary Care Provider: Giancarlo Espinosa Consulting Providers: Kin Mckeon; Britt Fonseca; Waleska Corley; Angelica Coffey; Aylin Machuca; Eyad Callaway; Audelia Noe; Demetrio Hector; Rip Rolon; David Al; Lorena Brady; Evens Mcgovern; Winsome Jefferson; Kirit Larios; Janie Quintero; Farhad Saldaña; Annette Winston; Edd Lofton; Kelsy Babcock; Sarah Sarah; Jessica Oglesby; Hoang Dennis; Giancarlo Drake Discharge Orders/Prescriptions Prescriptions: New valproic acid 250 mg capsule 500 mg PO BID Qty: 120 0RF Continued amitriptyline 100 MG tablet 300 mg PO QHS potassium chloride 20 mEq tablet extended release 20 meq PO BID Qty: 14 0RF ondansetron 8 mg tablet,disintegrating 8 mg PO Q8H PRN (Reason: nausea and vomiting) Qty: 20 0RF gabapentin 800 mg tablet 800 mg PO TID 14 Days Qty: 42 0RF melatonin 3 MG tablet 3 mg PO QHS PRN (Reason: Insomnia) Discontinued divalproex 250 mg Tablet,Delayed Release (Dr/Ec) 250 mg PO BIDCM Referrals / Follow Up: Giancarlo Espinosa MD [Primary Care Provider] - In 1 Week Michael Tidwell MD [Med Staff - Active Staff] - See Referral Note (as scheduled) Disposition Disposition (needs filled in before D/C Order can be placed): Home, Self Care
[2024-03-05 14:53] VITALS: BP 99/75; PULSE 82; RESP 16; TEMP 36.9; O2SAT 95
--- NOTE | 2024-03-05 14:54 | DS.PCM_ITS ---
Providers Date of Admission: 03/03/24 Date of Discharge: 03/05/24 Primary Care Physician: Dr. Giancarlo Espinosa MD Consultations 03/03/24 17:03 Consult: Tele-Neurology Routine Consulting Provider: [facility] Reason for Consult: Recurrent seizures EMERGENT Consult: No MD Notified: Yes Date Notified: 03/03/24 Time Notified: 16:57 Method of Notification: Answering Service Nursing Unit Staff Notify [facility] of Tele-Neurology Consult: Yes Reason For Visit: SEIZURES, MED NON-COMPLIANCE Diagnosis Discharge Diagnosis (1) Breakthrough seizure: Status: Acute Code(s): G40.919 - Epilepsy, unspecified, intractable, without status epilepticus (2) Multiple falls: Status: Acute Code(s): R29.6 - Repeated falls (3) Fracture of proximal phalanx of finger: Status: Acute Code(s): S62.619A - Displaced fracture of proximal phalanx of unspecified finger, initial encounter for closed fracture Plan 1. Breakthrough recurrent seizure #2 mechanical fall secondary to breakthrough seizure with acute right hand fourth proximal phalanx fracture #3 chronic anxiety and depression Medications at Discharge Home Medications amitriptyline 100 mg tablet 300 mg PO QHS sleep 04/02/18 gabapentin 800 mg tablet 800 mg PO TID nerve pain 14 days #42 tabs 10/17/23 ondansetron 8 mg disintegrating tablet 8 mg PO Q8H PRN nausea and vomiting #20 tabs 10/17/23 potassium chloride 20 mEq tablet,extended release 20 meq PO BID supplement #14 tabs 10/17/23 melatonin 3 mg tablet 3 mg PO QHS PRN Insomnia 03/03/24 valproic acid 250 mg capsule 500 mg (2 x 250 mg) PO BID #120 caps 03/05/24 Hospital Course Operations None Procedures None Summary of Care Provided Minutes Spent on Discharge: 31 Hospital Course: This 44-year-old white female was seen in the emergency room at [facility] after sustaining a fall at home when she had an apparent seizure. This was not witnessed however, patient complained of right hand pain, there was noted to be a proximal phalanx fracture of the fourth right finger. Patient sustained only minor injuries otherwise. Patient stated that she follows up with a neurologist at [facility], I called her PCP however and he could find no record that she was ever seen at the [facility] by neurology. Patient was admitted to PCU, she was seen in consultation by teleneurology, it was originally recommended that the patient be transferred to a facility with 24-hour EEG capability, an attempt was made to transfer the patient to [facility] but her insurance would not approve this transfer. Patient's valproic acid level was noted to be on the low end of normal. Patient's talk screen was unremarkable. Patient had no seizure activity during her hospitalization, it was recommended that the patient be discharged home on an increased dose of valproic acid. On 03/05/2024, patient was seen and examined: On examination she appeared in good health and spirits, she does not appear to be in any distress. Vital signs as documented. Skin warm and dry and without overt rashes. Neck without JVD, thyroid appears normal, trachea is midline, neck is supple. Lungs clear, normal air movement was noted. Heart exam notable for regular rhythm, normal sounds and absence of murmurs, rubs or gallops. Abdomen unremarkable and without evidence of organomegaly, masses, or abdominal aortic enlargement, bowel sounds are present in all 4 quadrants, no abdominal tenderness was noted. Extremities nonedematous, no cyanosis was noted, no clubbing was noted. Neuro: Cranial nerves II through XII are grossly intact, no focal motor deficits were noted, sensation to light touch and pinprick is intact, motor exam 5/5 throughout. Psych: Patient is alert and oriented x3, she does not appear anxious or depressed, she does not appear agitated. Patient appears stable for discharge home on 03/05/24 Weight / BMI Weight Weight: 64.5 kg Body Mass Index (BMI) 25.9 ABG / Lab / Microbiology Data 03/04/24 03:33 03/04/24 03:33 D/C Instructions Discharge Diet: No restrictions Weight Bearing Status: Full weight bearing DC O2, CPAP, BIPAP Needs Home O2 Discharge instructions: No Meaningful Use Info Meaningful Use Meaningful Use Diagnoses (Choose all that apply): None applicable Ischemic Stroke Statin Dosing Therapy Reference: STATIN DOSE THERAPY REFERENCE: * Patients > 75 years receive moderate or high dose statin therapy. * Patients 75 years or YOUNGER should receive HIGH intensity statin dose unless contraindicated. You will be required to document reason for non-treatment if statin daily dose does not meet guidelines. HIGH DOSE STATIN THERAPY DAILY Atorvastatin > than or = to 40 mg Rosuvastatin > than or = to 20 mg Amlodipine + Atorvastatin > than or = to 2.5/40 mg Ezetimibe + Simvastatin 10/80 mg Simvastatin 80mg Discharge Plan Admission Admit Date/Time: 03/03/24 16:23 Attending Provider: Giancarlo Drake Primary Care Provider: Giancarlo Espinosa Consulting Providers: Kin Mckeon; Britt Fonseca; Waleska Croley; Angelica Coffey; Aylin Machuca; Eyad Callaway; Audelia Noe; Demetrio Hector; Rip Rolon; David Al; Lorena Brady; Evens Mcgovern; Winsome Jefferson; Kirit Larios; Janie Quintero; Farhad Saldaña; Annette Winston; Edd Lofton; Kelsy Babcock; Sarah Sarah; Jessica Oglesby; Hoang Dennis; Giancarlo Drake Discharge Orders/Prescriptions Prescriptions: New valproic acid 250 mg capsule 500 mg PO BID Qty: 120 0RF Continued amitriptyline 100 MG tablet 300 mg PO QHS potassium chloride 20 mEq tablet extended release 20 meq PO BID Qty: 14 0RF ondansetron 8 mg tablet,disintegrating 8 mg PO Q8H PRN (Reason: nausea and vomiting) Qty: 20 0RF gabapentin 800 mg tablet 800 mg PO TID 14 Days Qty: 42 0RF melatonin 3 MG tablet 3 mg PO QHS PRN (Reason: Insomnia) Discontinued divalproex 250 mg Tablet,Delayed Release (Dr/Ec) 250 mg PO BIDCM Referrals / Follow Up: Giancarlo Espinosa MD [Primary Care Provider] - In 1 Week Lyla Mohan PA [Med Staff - Adv Practice Prof] - 03/06/24 8:45 am (Please bring photo ID and Ins card. ) Disposition Disposition (needs filled in before D/C Order can be placed): Home, Self Care Charges/Coding Visit Charges Inpatient E&M: 25887 Disch Hosp >30min
[2024-03-05 15:14] VITALS: BP 99/75; PULSE 82; RESP 16; TEMP 36.9; O2SAT 95
== END 2024-03-05 16:04 | disposition home or self-care (01) | DRG 53 ==
LOC: ED 12:39 → PCU 16:33
PROVIDERS: Nurse Practitioner; Admitting Provider Family Medicine; Emergency Provider Emergency Medicine; PCP Family Medicine; Visit Provider Internal Medicine
DX: G40.919 Epilepsy, unspecified, intractable, without status epilepticus (principal); G93.40 Encephalopathy, unspecified; D64.9 Anemia, unspecified; F32.A Depression, unspecified; F41.9 Anxiety disorder, unspecified; S01.511A Laceration without foreign body of lip, initial encounter; G35 Multiple sclerosis; S62.614A Displaced fracture of proximal phalanx of right ring finger, initial encounter for closed fracture; I44.0 Atrioventricular block, first degree; W10.9XXA Fall (on) (from) unspecified stairs and steps, initial encounter; K21.9 Gastro-esophageal reflux disease without esophagitis; W19.XXXD Unspecified fall, subsequent encounter; S00.81XA Abrasion of other part of head, initial encounter; S00.512A Abrasion of oral cavity, initial encounter; K08.89 Other specified disorders of teeth and supporting structures; S02.611 Fracture of condylar process of right mandible; R29.6 Repeated falls; Y92.009 Unspecified place in unspecified non-institutional (private) residence as the place of occurrence of the external cause; Z91.141 Patient's other noncompliance with medication regimen due to financial hardship; Z90.49 Acquired absence of other specified parts of digestive tract; Z96.89 Presence of other specified functional implants; Z86.69 Personal history of other diseases of the nervous system and sense organs; Z87.898 Personal history of other specified conditions; Z79.899 Other long term (current) drug therapy; Z23 Encounter for immunization
CPT/HCPCS: 36415; 70450; 70486; 72125; 73130; 80048; 80053; 80164; 80307; 81001; 81025; 83735; 84443; 84484; 85025; 93005; 94668; 97161; 97165; 99283; A4216; J2405